=== PATIENT | male | born 1960 | race Caucasian/White ===

== ENCOUNTER 2022-07-01 12:04 | Inpatient (IN) | payer BC, SELFPAY ==
[2022-07-01] VITALS (9 sets, daily range): BP systolic 132–144; BP diastolic 77–92; PULSE 69–102; RESP 16–24; TEMP 36.4; O2SAT 77–96; BMI 46.0
--- NOTE | ~2022-07-01 | XR_ITS ---
EXAMINATION: XR CHEST CLINICAL INFORMATION: Shortness of breath. Hypoxia. COMPARISON: None TECHNIQUE: Upright portable AP view of the chest was obtained. XR/XR chest 1V FINDINGS/IMPRESSION: The study is limited by portable technique and low lung volumes. The pulmonary veins may be mildly prominent in their nondependent portions, raising suspicion for pulmonary venous hypertension. Small bibasilar patchy linear densities are felt more likely to represent atelectasis rather than focal infiltrates. No effusion or pneumothorax is seen. The cardiac silhouette is poorly evaluated. There are degenerative changes of the left shoulder.
--- NOTE | 2022-07-01 12:15 | ECG_ITS ---
Test Reason : sob Blood Pressure : / mmHG Vent. Rate : 080 BPM Atrial Rate : 080 BPM P-R Int : 182 ms QRS Dur : 102 ms QT Int : 386 ms P-R-T Axes : 002 -28 045 degrees QTc Int : 445 ms Normal sinus rhythm Low voltage QRS Possible Inferior infarct , age undetermined Abnormal ECG No previous ECGs available Referred By: Generic ED Physician Electronically Signed By:SERENE COTE MD
--- NOTE | 2022-07-01 12:51 | ED_ITS ---
HPI - SOB/Dyspnea General Chief Complaint: Dyspnea Stated Complaint: sob, high heart rate Time Seen by Provider: 07/01/22 12:41 Source: patient Mode of arrival: ambulatory Limitations: no limitations History of Present Illness HPI Narrative: 61 yo male with history of morbid obesity, COPD, DEVIN on CPAP, aflutter s/p cardioversion & ablation with paroxysmal afib on Eliquis, who presents to the ER for evaluation of shortness of breath for the last several days. He reports over the weekend he started himself on supplemental oxygen because he was very SOB and having a hard time breathing with any exertion. He usually does not wear oxygen at home, only uses 2.5L bled into his CPAP at night. he reports just mov ing here from [facility], and he did when he and his worried by coming to the hospital for evaluation of his breathing. He reports a productive cough of yellow phlegm, no fever or chills. No chest pain. He has been using his nebulizer treatments, more frequently than prescribed in order to help his breathing however this has not helped him. He was shaky from using to mini nebs yesterday. He thought he might have been in rapid AFib at the time. He denies any current palpitations. Patient has a history of requiring multiple hospitalizations for his COPD exacerbations. He was intubated for 5 days in December of 2019 before COVID for pneumonia. MD elicited complaint: shortness of breath Pertinent past history: COPD Onset (ago): day(s) Timing: progressively worsening Severity: moderate Exacerbating factors: exertion and movement Relieving factors: oxygen, rest and bronchodilators Known history of: COPD Associated symptoms: cough and sputum production Treatment prior to arrival: oxygen and bronchodilator Related Data Home oxygen amount: delivered by CPAP (2.5) Home Medications Medication Instructions Recorded Confirmed albuterol sulfate 2.5 mg/3 mL 2.5 mg inhalation Q4H PRN Wheezing 07/01/22 07/01/22 (0.083 %) solution for nebulization albuterol sulfate 90 mcg/actuation 2 puff inhalation QID PRN Wheezing 07/01/22 07/01/22 aerosol inhaler amiodarone 200 mg tablet 200 mg PO DAILY 07/01/22 07/01/22 apixaban 5 mg tablet (Eliquis) 5 mg PO BID 07/01/22 07/01/22 azelastine 137 mcg (0.1 %) nasal 1 spray intranasal BID 07/01/22 07/01/22 spray aerosol budesonide-formoterol HFA 160 2 puff inhalation BID 07/01/22 07/01/22 mcg-4.5 mcg/actuation aerosol inhaler (Symbicort) cholecalciferol (vitamin D3) 25 25 mcg PO DAILY 07/01/22 07/01/22 mcg (1,000 unit) tablet diltiazem HCl 240 mg capsule,24 240 mg PO DAILY 07/01/22 07/01/22 hr,extended release furosemide 40 mg tablet 40 mg PO BID 07/01/22 07/01/22 methimazole 5 mg tablet 5 mg PO DAILY 07/01/22 07/01/22 metoprolol succinate 100 mg 100 mg PO DAILY 07/01/22 07/01/22 capsule sprinkle, ext. release 24 hr multivitamin 1 tab PO DAILY 07/01/22 07/01/22 omeprazole 20 mg tablet,delayed 20 mg PO DAILY 07/01/22 07/01/22 release roflumilast 250 mcg tablet 250 mcg PO DAILY 07/01/22 07/01/22 (Daliresp) tiotropium bromide 2.5 2 puff inhalation DAILY 07/01/22 07/01/22 mcg/actuation mist for inhalation (Spiriva Respimat) vitamin B complex 1 cap PO DAILY 07/01/22 07/01/22 vitamin E 670 mg (1,000 unit) 670 mg PO DAILY 07/01/22 07/01/22 capsule Allergies Allergy/AdvReac Type Severity Reaction Status Date / Time Unable to Assess Allergy Unverified 07/01/22 12:41 Review of Systems Review of Systems: Constitutional: No Fever, No Chills ENT/Mouth: No sore throat, No Rhinorrhea, No Swallowing Difficulty Eyes: No Eye Pain, No Swelling, No Redness Cardiovascular: No Chest Pain, + SOB, No Orthopnea, No Edema Respiratory: + Cough, + Sputum, No Wheezing, + dyspnea Gastrointestinal: No Nausea, No Vomiting, No Diarrhea, No abdominal Pain, No Hematochezia, No Melena Genitourinary: No Dysuria, No Urinary Frequency, No Hematuria Musculoskeletal: No joint pain, No Myalgias Skin: No Skin Lesions, No rash Neuro: No Weakness, No Numbness, No Dizziness, + Headache Psych: No Anxiety/Panic, No Depression Heme/Lymph: No Bruising, No Lymphadenopathy Endocrine: No Polyuria, No Polydipsia PMFSH Social History Social History Advance Directives: Yes Advance Directives Information Provided: Yes Advance Directives on File: No Physical Exam Vital Signs: Vital Signs: Last Vital Signs Temp 97.5 F 07/01/22 12:25 Pulse 69 07/01/22 12:58 Resp 16 07/01/22 12:58 BP 144/77 H 07/01/22 12:25 Pulse Ox 78 L 07/01/22 12:25 O2 Del Method 07/01/22 12:25 Oxygen Flow Rate 5 07/01/22 12:25 BMI result Body Mass Index 46.0 Appearance: Alert. Oriented X3. No acute distress. Eyes: Pupils equal, round and reactive to light. ENT: Pharynx normal. Neck: Normal inspection. Neck supple. CVS: Normal heart rate and rhythm. Pulses normal. Respiratory: No respiratory distress. Breath sounds diminished throughout all lung cormier, poor air entry. no audible wheezes, rales or rhonchi. speaking in complete sentences Abdomen: Obese, Soft and nontender. +BS x4 Skin: Skin warm and dry. Normal skin color. Normal skin turgor. No rashes. Extremities: No lower extremity edema. Neuro: Oriented X 3. No motor deficit. No sensory deficit. Course Course Course Narrative: 61-year-old morbidly obese male with BMI of 46, former smoker, COPD, DEVIN on CPAP, AFib on Eliquis who presents to the ER for evaluation of shortness of br eath, dyspnea on exertion and hypoxia that has worsened over the last several days. On arrival to the emergency department after ambulating to the triage room patient was hypoxic to 70% on 5L pulsed from his home O2 take. he was working to breathe, AAO. patient was fracture treatment room, placed on 4 L nasal cannula and he was slowly able to recover with SpO2 89%. He is speaking complete sentences on evaluation. He has poor aeration with diminished lung sounds throughout. Will plan to check chest x-ray, EKG, basic lab workup, COVID swab and give him a nebulizer treatment now as well as IV steroids. Reevaluation(s) Reevaluation #1: Lab workup showing minimal leukocytosis WBC 11.4. COVID swab is negative. Chest x-ray reviewed, limited evaluation with low lung volumes. There is small bibasilar patchy linear densities most likely atelectasis. Procalcitonin is low. No evidence of acute pneumonia. Will treat for COPD exacerbation with IV Levaquin. After his 10 mg albuterol nebulizer treatment he has improved aeration in his left lung however right lung remains very diminished. He remains on 3 L nasal cannula to maintain saturations 89%. Will plan on admission for further treatment. MDM - SOB/Dyspnea Differential Diagnosis Differential diagnosis: Likely acute exacerbation of chronic obstructive airways disease, congestive heart failure, pneumonia, asthma with exacerbation, pleural effusion, sleep apnea and anemia Medical Records Attestation: I reviewed the patient's medical records. Lab Data Attestation: I reviewed the patient's lab results. Result diagrams: 07/01/22 13:30 07/01/22 13:30 Labs: Lab Results 07/01/22 07/01/22 07/01/22 Range/Units 13:30 13:30 13:30 WBC 11.4 H (4.8-10.8) X10*3/uL RBC 4.76 (4.60-5.80) X10*6/uL Hgb 14.3 (14.0-18.0) g/dl Hct 46.9 (42.0-52.0) % MCV 98.5 H (80.0-98.0) fL MCH 30.0 (27.0-33.0) pg MCHC 30.5 L (31.0-36.0) g/dl RDW 14.4 (11.0-16.0) % Plt Count 202 (160-400) X10*3/uL MPV 11.4 (9.4-12.4) fL Immature Gran % (Auto) 0.4 (0.0-0.4) % Neut % (Auto) 72.6 (45-73) % Lymph % (Auto) 16.3 L (20-40) % [place] % (Auto) 8.7 (2-11) % Eos % (Auto) 1.7 (0-4) % Baso % (Auto) 0.3 (0-2) % Lymph # (Auto) 1.9 (1.2-4.9) X10*3/uL [place] # (Auto) 1.0 (0.1-1.2) X10*3/uL Eos # (Auto) 0.2 (0.0-0.4) X10*3/uL Baso # (Auto) 0.0 (0.0-0.2) X10*3/uL Abs Immat Gran (auto) 0.04 H (0.00-0.03) X10*3/uL Absolute Neuts (auto) 8.3 (2.0-8.3) x10*3/uL Absolute Nucleated RBC 0.000 (0.0-0.012) X10*3/uL Nucleated RBC % (auto) 0.0 (0.0-0.2) /100WBC Sodium 143 (135-145) mmol/L Potassium 4.9 (3.3-5.1) mmol/L Chloride 94 L (96-108) mmol/L Carbon Dioxide 38 H (22-29) mmol/L Anion Gap 16 (12-20) BUN 14 (9-16) mg/dL Creatinine 0.84 (0.5-1.4) mg/dL Estim Creat Clear Calc 138.9 Estimated GFR > 60 Random Glucose 94 (60-115) mg/dL Lactic Acid (0.5-2.0) mmol/L Calcium 8.5 (8.4-10.2) mg/dL Magnesium 2.0 (1.6-2.6) mg/dL Total Bilirubin 0.7 (0.0-1.0) mg/dL Direct Bilirubin 0.3 (0.0-0.5) mg/dL AST 24 (5-37) U/L ALT 25 (0-40) U/L Alkaline Phosphatase 62 (39-117) U/L B-Natriuretic Peptide 48 (<100) pg/mL Total Protein 6.6 (6.5-8.0) g/dL Albumin 4.0 (3.5-5.0) g/dL Procalcitonin ng/mL Urine Color Urine Appearance Urine pH (5.0-8.0) Ur Specific Bradley (1.005-1.025) Urine Protein (NEG-TRACE) MG/DL Urine Glucose (UA) (NEG) MG/DL Urine Ketones (NEG) MG/DL Urine Blood (NEG) Urine Nitrite (NEG) Ur Leukocyte Esterase (NEG) COVID-19 (KIARA) (Negative) COVID-19 Clin Com 07/01/22 07/01/22 07/01/22 Range/Units 13:30 13:31 13:32 WBC (4.8-10.8) X10*3/uL RBC (4.60-5.80) X10*6/uL Hgb (14.0-18.0) g/dl Hct (42.0-52.0) % MCV (80.0-98.0) fL MCH (27.0-33.0) pg MCHC (31.0-36.0) g/dl RDW (11.0-16.0) % Plt Count (160-400) X10*3/uL MPV (9.4-12.4) fL Immature Gran % (Auto) (0.0-0.4) % Neut % (Auto) (45-73) % Lymph % (Auto) (20-40) % Stan[place] % (Auto) (2-11) % Eos % (Auto) (0-4) % Baso % (Auto) (0-2) % Lymph # (Auto) (1.2-4.9) X10*3/uL [place] # (Auto) (0.1-1.2) X10*3/uL Eos # (Auto) (0.0-0.4) X10*3/uL Baso # (Auto) (0.0-0.2) X10*3/uL Abs Immat Gran (auto) (0.00-0.03) X10*3/uL Absolute Neuts (auto) (2.0-8.3) x10*3/uL Absolute Nucleated RBC (0.0-0.012) X10*3/uL Nucleated RBC % (auto) (0.0-0.2) /100WBC Sodium (135-145) mmol/L Potassium (3.3-5.1) mmol/L Chloride (96-108) mmol/L Carbon Dioxide (22-29) mmol/L Anion Gap (12-20) BUN (9-16) mg/dL Creatinine (0.5-1.4) mg/dL Estim Creat Clear Calc Estimated GFR Random Glucose (60-115) mg/dL Lactic Acid 0.9 (0.5-2.0) mmol/L Calcium (8.4-10.2) mg/dL Magnesium (1.6-2.6) mg/dL Total Bilirubin (0.0-1.0) mg/dL Direct Bilirubin (0.0-0.5) mg/dL AST (5-37) U/L ALT (0-40) U/L Alkaline Phosphatase (39-117) U/L B-Natriuretic Peptide (<100) pg/mL Total Protein (6.5-8.0) g/dL Albumin (3.5-5.0) g/dL Procalcitonin 0.02 ng/mL Urine Color Urine Appearance Urine pH (5.0-8.0) Ur Specific Bradley (1.005-1.025) Urine Protein (NEG-TRACE) MG/DL Urine Glucose (UA) (NEG) MG/DL Urine Ketones (NEG) MG/DL Urine Blood (NEG) Urine Nitrite (NEG) Ur Leukocyte Esterase (NEG) COVID-19 (KIARA) Negative (Negative) COVID-19 Clin Com See Note 07/01/22 Range/Units 15:51 WBC (4.8-10.8) X10*3/uL RBC (4.60-5.80) X10*6/uL Hgb (14.0-18.0) g/dl Hct (42.0-52.0) % MCV (80.0-98.0) fL MCH (27.0-33.0) pg MCHC (31.0-36.0) g/dl RDW (11.0-16.0) % Plt Count (160-400) X10*3/uL MPV (9.4-12.4) fL Immature Gran % (Auto) (0.0-0.4) % Neut % (Auto) (45-73) % Lymph % (Auto) (20-40) % [place] % (Auto) (2-11) % Eos % (Auto) (0-4) % Baso % (Auto) (0-2) % Lymph # (Auto) (1.2-4.9) X10*3/uL [place] # (Auto) (0.1-1.2) X10*3/uL Eos # (Auto) (0.0-0.4) X10*3/uL Baso # (Auto) (0.0-0.2) X10*3/uL Abs Immat Gran (auto) (0.00-0.03) X10*3/uL Absolute Neuts (auto) (2.0-8.3) x10*3/uL Absolute Nucleated RBC (0.0-0.012) X10*3/uL Nucleated RBC % (auto) (0.0-0.2) /100WBC Sodium (135-145) mmol/L Potassium (3.3-5.1) mmol/L Chloride (96-108) mmol/L Carbon Dioxide (22-29) mmol/L Anion Gap (12-20) BUN (9-16) mg/dL Creatinine (0.5-1.4) mg/dL Estim Creat Clear Calc Estimated GFR Random Glucose (60-115) mg/dL Lactic Acid (0.5-2.0) mmol/L Calcium (8.4-10.2) mg/dL Magnesium (1.6-2.6) mg/dL Total Bilirubin (0.0-1.0) mg/dL Direct Bilirubin (0.0-0.5) mg/dL AST (5-37) U/L ALT (0-40) U/L Alkaline Phosphatase (39-117) U/L B-Natriuretic Peptide (<100) pg/mL Total Protein (6.5-8.0) g/dL Albumin (3.5-5.0) g/dL Procalcitonin ng/mL Urine Color YELLOW Urine Appearance CLEAR Urine pH 6.0 (5.0-8.0) Ur Specific Bradley 1.020 (1.005-1.025) Urine Protein 2+ H (NEG-TRACE) MG/DL Urine Glucose (UA) NEG (NEG) MG/DL Urine Ketones 5 (NEG) MG/DL Urine Blood NEG (NEG) Urine Nitrite NEG (NEG) Ur Leukocyte Esterase NEG (NEG) COVID-19 (KIARA) (Negative) COVID-19 Clin Com ECG Data Attestation: I personally reviewed and interpreted this ECG as follows: ECG interpretation date: 07/01/22 ECG interpretation time: 14:56 Interpretation: Normal sinus rhythm, low-voltage QRS, ventricular rate 80 beats per minute, normal QTC, normal GA interval. No ST segment elevations or depressions. Critical Care Time Critical Care Time Critical Care Time: Yes Total Critical Care Time: 39 Attestation: I have personally provided critical care time exclusive of time spent on separately billable procedures. Time includes review of lab data, radiology results, discussion with consultants, and monitoring for potential decompensation. Intervention performed as documented. Discharge Plan Discharge Clinical Impression: Acute respiratory failure with hypoxia and hypercapnia Patient Disposition: Admitted As Inpatient
[2022-07-01] MEDS: Albuterol/Iprat 2.5/0.5MG 3 ML AMPUL.NEB INHALE ×4 (12:58→23:35)
--- NOTE | 2022-07-01 13:42 | PHA.MEDREC ---
Pharmacy Consult ? Medication Reconciliation Pharmacy has completed the medication reconciliation. Patient gave me a list verbally. [facility] and spoke to Kristina Price to confirm list.
[2022-07-01 13:52] LABS: MANUAL DIFF FLAG NO
[2022-07-01 13:57] LABS: Basophils Percent Auto 0.3 % (0-2); Eosinophils Absolute Auto 0.2 X10*3/uL (0.0-0.4); Eosinophils Percent Auto 1.7 % (0-4); Hematocrit 46.9 % (42.0-52.0); Hemoglobin 14.3 g/dl (14.0-18.0); Imm Gran Abs Auto 0.04 X10*3/uL (0.00-0.03); Imm Gran Pct Auto 0.4 % (0.0-0.4); Lymphocytes Absolute Auto 1.9 X10*3/uL (1.2-4.9); Lymphocytes Percent Auto 16.3 % (20-40); Mean Corpuscular HGB Conc 30.5 g/dl (31.0-36.0); Mean Corpuscular Volume 98.5 fL (80.0-98.0); Mean Platelet Volume 11.4 fL (9.4-12.4); Monocytes Percent Auto 8.7 % (2-11); Neutrophils Absolute Auto 8.3 x10*3/uL (2.0-8.3); Neutrophils Percent Auto 72.6 % (45-73); Platelet Count 202 X10*3/uL (160-400); Red Blood Count 4.76 X10*6/uL (4.60-5.80); Red Cell Distribution Width 14.4 % (11.0-16.0); White Blood Count 11.4 X10*3/uL (4.8-10.8)
[2022-07-01 14:01] LABS: Lactic Acid 0.9 mmol/L (0.5-2.0)
[2022-07-01 14:07] LABS: COVID-19 Test Negative (Negative); IDNOW Serial# 16C4AD1C
[2022-07-01 14:14] LABS: Alanine Aminotransferase 25 U/L (0-40); Alkaline Phosphatase 62 U/L (39-117); Anion Gap 16 (12-20); Aspartate Amino Transferase 24 U/L (5-37); Bilirubin Direct 0.3 mg/dL (0.0-0.5); Bilirubin Total 0.7 mg/dL (0.0-1.0); Blood Urea Nitrogen 14 mg/dL (9-16); Calcium 8.5 mg/dL (8.4-10.2); Carbon Dioxide 38 mmol/L (22-29); Chloride 94 mmol/L (96-108); Creatinine Clr Calc Pharmacy 138.9; Estimated Glomerular Filt Rate > 60; Glucose Random 94 mg/dL (60-115); Potassium 4.9 mmol/L (3.3-5.1); Sodium 143 mmol/L (135-145); Total Protein 6.6 g/dL (6.5-8.0)
[2022-07-01 14:17] LABS: B Type Natriuretic Peptide 48 pg/mL (<100)
[2022-07-01 14:32] LABS: Procalcitonin 0.02 ng/mL
[2022-07-01] MEDS: Furosemide 40 MG/4 ML VIAL IVPUSH (15:36)
[2022-07-01] MEDS: methylPREDNISolone Sod Succ 125 MG/2 ML VIAL IVPUSH (15:37)
[2022-07-01] MEDS: levoFLOXacin/D5W 500 MG/100 ML PIGGYBACK 100 MG IV (15:37)
[2022-07-01 16:01] LABS: Appearance Urine CLEAR; Color Urine YELLOW; Glucose Urine UA NEG (NEG); Leukocyte Esterase Urine NEG (NEG); Nitrite Urine NEG (NEG); UACC Culture Trigger NO; Urine Blood NEG (NEG); Urine Ketones 5 MG/DL (NEG); Urine Protein 2+ MG/DL (NEG-TRACE)
[2022-07-01 16:11] LABS: Bacteria Urine TRACE /LPF; RBC Urine 0 /HPF (0); Squamous Epithelial Cell Urine TRACE /LPF; WBC Urine 0 /HPF (0-4)
--- NOTE | 2022-07-01 16:54 | P.HPHOSP_ITS ---
History of Present Illness Date of Service: 07/01/22 Chief Complaint: sob 61-year-old male pmx aflutter s/p cardioversion & ablation with paroxysmal afib on Eliquis,copd with chronic respiratory failure on 2.5 L oxygen,morbid obesity, DEVIN on CPAP: patient says that he had recently moved from [place] from last 1- 2 weeks he is having short of breath on and off and from last few days he is getting more short of breath .He reports over the weekend he started himself on supplemental oxygen because he was very SOB and having a hard time breathing with any exertion.He has been using his nebulizer treatments, more frequently than prescribed in order to help his breathing however this has not helped him. He usually does not wear oxygen at home, only uses 2.5L bled into his CPAP at night.He was shaky from using to mini nebs yesterday.He reports a productive cough of yellow phlegm. Patient has a history of requiring multiple hospitalizations for his COPD exacerbations.? He was intubated for 5 days in December of 2019 before COVID for pneumonia. Denies any new complaint of chest pain or abdominal pain or fever or chills or nausea or vomiting Denies any weakness or numbness.? Lab imaging reviewed: mild leukocytosis, BMP seems fine, lactic acid seems fine, cxr:mild atelactasis COVID negative In ED: initially patient was having sats of 78%-patient received nebs, steroids, antibiotics,lasix,oxygen and subsequently patient breathing seems to be improving: ED requested admission because of shortness of breath and COPD exacerbation. social history: Patient lives with his , occasionally drinks beer 1 in 2 weeks, quit smoking 12 years ago has 30 year pack history, no recreation drug use, independent. moderna x4, last booster in march Review of Systems Review of Systems: As above. [facility] Pertinent family history: Patient mother had COPD, father- colon cancer and brother lung cancer respectively. Social History Advance Directives: Yes Advance Directives Information Provided: Yes Advance Directives on File: No Meds Allergies Allergy/AdvReac Type Severity Reaction Status Date / Time Unable to Assess Allergy Unverified 07/01/22 12:41 Active Medications: Current Medications Albuterol/Ipratropium (Albuterol/Iprat 2.5/0.5mg 3 Ml Ampul.Neb) 3 ml INHALE Q4H JIMMY Albuterol/Ipratropium (Albuterol/Iprat 2.5/0.5mg 3 Ml Ampul.Neb) 3 ml INHALE Q3H PRN PRN Reason: sob Amiodarone HCl (Amiodarone Hcl 200 Mg Tablet) 200 mg PO DAILY [facility] Apixaban (Apixaban 5 Mg Tablet) 5 mg PO BID [facility] Azelastine HCl (Azelastine Hcl Nasal 137 Mcg/[place] 30 Ml) 1 spray NOSTRIL-B BID [facility] Diltiazem HCl (Diltiazem Hcl Cd 240 Mg Cap.Er.Deg) 240 mg PO DAILY JIMMY; Protocol Furosemide (Furosemide 40 Mg Tablet) 40 mg PO BID JIMMY; Protocol Ceftriaxone Sodium 1 gm/ (Sodium Chloride) 50 mls @ 100 mls/hr IV DAILY [facility] Methimazole (Methimazole 5 Mg Tablet) 5 mg PO DAILY [facility] Methylprednisolone Sodium Succinate (Methylprednisolone Sod Succ 40 Mg/Ml Vial) 40 mg IVPUSH TID [facility] Metoprolol Succinate (Metoprolol Succinate Er 100 Mg Tab.Er.24h) 100 mg PO DAILY JIMMY; Protocol Multivitamins/Vitamin C (Multivitamin Tablet) 1 tab PO DAILY [facility] Multivitamins/Vitamin C (Multivitamin Tablet) tab PO DAILY [facility] Non-Formulary Medication (Roflumilast [Daliresp]) 250 mcg PO DAILY [facility] Non-Formulary Medication (Tiotropium [place] [Spiriva Respimat]) 2 puff INHALE DAILY [facility] Non-Formulary Medication (Vitamin E) 670 mg PO DAILY [facility] Omeprazole (Omeprazole 20 Mg Capsule.Dr) 20 mg PO DAILY [facility] Pharmacy Consult (Consult Rx Perform Med Rec) 1 each MISCELLANE ONCE PRN PRN Reason: Consult order Sodium Chloride (0.9 % Sodium Chloride Flush 3 Ml Syringe) 3 ml IVFLUSH QSHIFT [facility] Vitamin D (Cholecalciferol (Vitamin D3) 25 Mcg Tablet) 25 mcg PO DAILY [facility] Home Medications Medication Instructions Recorded Confirmed Last Taken Type albuterol sulfate 2.5 mg/3 mL 2.5 mg inhalation Q4H PRN Wheezing 07/01/22 07/01/22 Unknown History (0.083 %) solution for nebulization albuterol sulfate 90 mcg/actuation 2 puff inhalation QID PRN Wheezing 07/01/22 07/01/22 Unknown History aerosol inhaler amiodarone 200 mg tablet 200 mg PO DAILY 07/01/22 07/01/22 Unknown History apixaban 5 mg tablet (Eliquis) 5 mg PO BID 07/01/22 07/01/22 07/01/22 History azelastine 137 mcg (0.1 %) nasal 1 spray intranasal BID 07/01/22 07/01/22 Unknown History spray aerosol budesonide-formoterol HFA 160 2 puff inhalation BID 07/01/22 07/01/22 Unknown History mcg-4.5 mcg/actuation aerosol inhaler (Symbicort) cholecalciferol (vitamin D3) 25 25 mcg PO DAILY 07/01/22 07/01/22 Unknown History mcg (1,000 unit) tablet diltiazem HCl 240 mg capsule,24 240 mg PO DAILY 07/01/22 07/01/22 Unknown History hr,extended release furosemide 40 mg tablet 40 mg PO BID 07/01/22 07/01/22 Unknown History methimazole 5 mg tablet 5 mg PO DAILY 07/01/22 07/01/22 Unknown History metoprolol succinate 100 mg 100 mg PO DAILY 07/01/22 07/01/22 Unknown History capsule sprinkle, ext. release 24 hr multivitamin 1 tab PO DAILY 07/01/22 07/01/22 Unknown History omeprazole 20 mg tablet,delayed 20 mg PO DAILY 07/01/22 07/01/22 Unknown History release roflumilast 250 mcg tablet 250 mcg PO DAILY 07/01/22 07/01/22 Unknown History (April) tiotropium bromide 2.5 2 puff inhalation DAILY 07/01/22 07/01/22 Unknown History mcg/actuation mist for inhalation (Spiriva Respimat) vitamin B complex 1 cap PO DAILY 07/01/22 07/01/22 Unknown History vitamin E 670 mg (1,000 unit) 670 mg PO DAILY 07/01/22 07/01/22 Unknown History capsule Physical Exam 2 Vital Signs and Narrative: Vital Signs: Last Vital Signs Temp 97.5 F 07/01/22 12:25 Pulse 69 07/01/22 12:58 Resp 16 07/01/22 12:58 BP 144/77 H 07/01/22 12:25 Pulse Ox 78 L 07/01/22 12:25 O2 Del Method 07/01/22 12:25 Oxygen Flow Rate 5 07/01/22 12:25 BMI result Body Mass Index 46.0 Appearance: Alert.? Oriented X3.? sob Eyes: Pupils equal, round and reactive to light.? Sclera nonicteric.? ENT: Pharynx normal.? Moist mucous membranes. cvs: rrr, [id number] res: dimished breath sounds , rhonchii b/l. abd: no rebound or guarding ,nt, bs present. ext pulses present , no cyanosis. neuro: axo3 , nonfocal. Results Labs CBC and Chem 7: 07/01/22 13:30 07/01/22 13:30 Labs: Laboratory Results - last 24 hr 07/01/22 07/01/22 07/01/22 13:30 13:30 13:30 MCV 98.5 H MCH 30.0 MCHC 30.5 L RDW 14.4 Plt Count 202 MPV 11.4 Immature Gran % (Auto) 0.4 Neut % (Auto) 72.6 Lymph % (Auto) 16.3 L [place] % (Auto) 8.7 Eos % (Auto) 1.7 Baso % (Auto) 0.3 Lymph # (Auto) 1.9 [place] # (Auto) 1.0 Eos # (Auto) 0.2 Baso # (Auto) 0.0 Abs Immat Gran (auto) 0.04 H Absolute Neuts (auto) 8.3 Absolute Nucleated RBC 0.000 Nucleated RBC % (auto) 0.0 Anion Gap 16 Estim Creat Clear Calc 138.9 Estimated GFR > 60 Random Glucose 94 Lactic Acid Calcium 8.5 Magnesium 2.0 Total Bilirubin 0.7 Direct Bilirubin 0.3 AST 24 ALT 25 Alkaline Phosphatase 62 B-Natriuretic Peptide 48 Total Protein 6.6 Albumin 4.0 Procalcitonin Urine Color Urine Appearance Urine pH Ur Specific [place] Urine Protein Urine Glucose (UA) Urine Ketones Urine Blood Urine Nitrite Ur Leukocyte Esterase Urine RBC Urine WBC Ur Squamous Epith Cells Urine Bacteria COVID-19 (KIARA) COVID-19 Clin Com 07/01/22 07/01/22 07/01/22 13:30 13:31 13:32 MCV MCH MCHC RDW Plt Count MPV Immature Gran % (Auto) Neut % (Auto) Lymph % (Auto) [place] % (Auto) Eos % (Auto) Baso % (Auto) Lymph # (Auto) [place] # (Auto) Eos # (Auto) Baso # (Auto) Abs Immat Gran (auto) Absolute Neuts (auto) Absolute Nucleated RBC Nucleated RBC % (auto) Anion Gap Estim Creat Clear Calc Estimated GFR Random Glucose Lactic Acid 0.9 Calcium Magnesium Total Bilirubin Direct Bilirubin AST ALT Alkaline Phosphatase B-Natriuretic Peptide Total Protein Albumin Procalcitonin 0.02 Urine Color Urine Appearance Urine pH Ur Specific [place] Urine Protein Urine Glucose (UA) Urine Ketones Urine Blood Urine Nitrite Ur Leukocyte Esterase Urine RBC Urine WBC Ur Squamous Epith Cells Urine Bacteria COVID-19 (KIARA) Negative COVID-19 Clin Com See Note 07/01/22 15:51 MCV MCH MCHC RDW Plt Count MPV Immature Gran % (Auto) Neut % (Auto) Lymph % (Auto) [place] % (Auto) Eos % (Auto) Baso % (Auto) Lymph # (Auto) [place] # (Auto) Eos # (Auto) Baso # (Auto) Abs Immat Gran (auto) Absolute Neuts (auto) Absolute Nucleated RBC Nucleated RBC % (auto) Anion Gap Estim Creat Clear Calc Estimated GFR Random Glucose Lactic Acid Calcium Magnesium Total Bilirubin Direct Bilirubin AST ALT Alkaline Phosphatase B-Natriuretic Peptide Total Protein Albumin Procalcitonin Urine Color YELLOW Urine Appearance CLEAR Urine pH 6.0 Ur Specific [place] 1.020 Urine Protein 2+ H Urine Glucose (UA) NEG Urine Ketones 5 Urine Blood NEG Urine Nitrite NEG Ur Leukocyte Esterase NEG Urine RBC 0 Urine WBC 0 Ur Squamous Epith Cells TRACE Urine Bacteria TRACE COVID-19 (KIARA) COVID-19 Clin Com ECG Attestation: I personally reviewed and interpreted this ECG as follows: (nsr @80 bpm) Imaging Radiologist's Impressions: Impressions Chest X-Ray 07/01/22 13:40 FINDINGS/IMPRESSION: The study is limited by portable technique and low lung volumes. The pulmonary veins may be mildly prominent in their nondependent portions, raising suspicion for pulmonary venous hypertension. Small bibasilar patchy linear densities are felt more likely to represent atelectasis rather than focal infiltrates. No effusion or pneumothorax is seen. The cardiac silhouette is poorly evaluated. There are degenerative changes of the left shoulder. Assessment and Plan (1) Acute respiratory failure with hypoxia and hypercapnia: Status: Acute Plan 61-year-old male pmx aflutter s/p cardioversion & ablation with paroxysmal afib on Eliquis,copd with chronic respiratory failure on 2.5 L oxygen,morbid obesity, DEVIN on CPAP: Patient comes with shortness of breath, cough and productive sputum for few days. 1. acute on chronic respiratory failure with hypoxemia secondary to COPD exacerbation continue nebs, steroids, IV antibiotics since has mild leukocytosis and also has productive sputum. follow-up blood cultures sent by ED. continue oxygen as needed Chest x-ray shows some atelectasis- added incentive spirometry, chest physiotherapy patient does not have sepsis. patient may need home oxygen evaluation before discharge to evaluate need to up titrate oxygen if needed. 2. Morbid obesity: Encouraged to lose weight, cutdown calories. 3. History of a flutter/paf: continue amiodarone, metoprolol, Eliquis, diltiazem patient chest x-ray shows question of pulmonary hypertension- will add echo. 4. DEVIN on CPAP ordered, continue CPAP. Continue other home medications, we will reconcile when medical reconciliation completed. DVT prophylaxis: Patient is on Eliquis. Above management discussed with the patient in detail and he understand and in agreement with the above plan, time spent 70 minute, patient is full code, considering acute on chronic hypoxemic respiratory failure secondary to COPD patient may benefit from 2 midnight stays. Quality Stroke Does the patient have a stroke diagnosis?: No VTE Prior VTE?: No VTE Risk Level:: Medical - moderate - high VTE Device Contraindication: N/A - Device Ordered VTE Drug Contraindication: N/A - Med Ordered
[2022-07-01] MEDS: cefTRIAXone sodium 1 GM in 0.9 % Sodium Chloride 50 ML IV (17:10)
[2022-07-01 19:08] LABS: VBG Base Excess 14.2 mmol/L; VBG HCO3 42 mmol/L (22-26); VBG pCO2 62 mmHg; VBG pH 7.43 (7.32-7.43); VBG pO2 45 mmHg
[2022-07-01 19:09] LABS: Venous Blood Gas Refer to POC result
[2022-07-01] MEDS: Furosemide 40 MG TABLET PO (22:23)
[2022-07-01] MEDS: methylPREDNISolone Sod Succ 40 MG/ML VIAL IVPUSH (22:23)
[2022-07-01] MEDS: Apixaban 5 MG TABLET PO (22:23)
--- NOTE | 2022-07-01 22:27 | PC.NURSE ---
pt in no distress, no c/o pain or SOB. O2 sat 86-91% on 2lpm via [place] pt given diet deisy toni per request.
[2022-07-02] VITALS (12 sets, daily range): BP systolic 127–160; BP diastolic 63–84; PULSE 77–94; RESP 15–20; TEMP 36.4–37; O2SAT 86–95
[2022-07-02] MEDS: 0.9 % Sodium Chloride Flush 3 ML SYRINGE IVFLUSH ×3 (00:43→15:27)
[2022-07-02] MEDS: Omeprazole 20 MG CAPSULE.DR PO (06:08)
--- NOTE | 2022-07-02 07:00 | CA_ITS ---
Transthoracic Echocardiogram Patient (Last, First, Middle): Mario Dolan Jr, Gender: Male Date of : 1960 Age: 61 Procedure Date: 07/02/2022 Procedure Type: Transthoracic Echocardiogram Location: S3E Height: 180.34 cm Weight: 149.69 kg BSA: 2.61 m2 Heart Rate: bpm BP: 127 / 84 mmHg Stripper [place]: [id number] Referring MD: Isidra Lawton MD [employer] Operator: Tan Florence MD Symptoms: pulm htn Study Quality: Technically Difficult/contrast ECG Rhythm: Sinus Conclusions: - 1. Technically limited study despite use of contrast agent 2. Normal LV systolic function with LVEF of 65-70% with impaired relaxation filling pattern 3. Limited visualization of cardiac valves with normal cardiac valvular Doppler 4. Normal RV systolic pressure measured on this study could be underestimated 5. No gross pericardial effusion Findings Procedure Information Contrast agent, definity, is being given per protocol without apparent complications. Left Ventricle The left ventricle was not well visualized. Normal left ventricular cavity size. The left ventricular systolic function is normal. The visually estimated ejection fraction is between 65-70%. Spectral Doppler is indicative of an impaired relaxation filling pattern. E/E prime ratio is between 8 and 15 consistent with indeterminate filling pressures. Right Ventricle The right ventricle was not well visualized. There is normal right ventricular systolic function. Atria The left atrium was not well visualized. There is lipomatous hypertrophy of the interatrial septum. There is no evidence of interatrial shunt. The right atrium was not well visualized. Aortic Valve The aortic valve was not well visualized. There is no aortic valve stenosis. There is no aortic valve regurgitation. Mitral Valve The mitral valve was not well visualized. There is no mitral valve regurgitation. There is no mitral valve stenosis. Pulmonic Valve The pulmonic valve was not well visualized. Tricuspid Valve The tricuspid valve was not well visualized. There is trace tricuspid valve regurgitation. The right ventricular systolic pressure is normal. Normal right atrial pressure. There is no evidence of pulmonary hypertension. Great Vessels The aorta was not well visualized. The pulmonary artery was not well visualized. Venous The inferior vena cava is mildly dilated and collapses greater than 50% with inspiration. Pericardium/Pleural The pericardium was not well visualized. Prior Study Comparison No prior study available for comparison. Measurements 2D Linear Measurements LVOT Diam: 2.10 3.0+(-)1.3 cm 2D Systolic Function EF 4C: 71.00 >55% EF 2C: 68.40 >55% EF BiP: 69.10 >55% Mitral Valve MV Pk E: 0.82 MV PK A: 0.74 MV Decel Time: 241.00 E/A: 1.10 E'Lateral: 9.46 E'Medial: 6.85 E/E' Med: 12.00 E/E' Lat: 8.70 PHT: 71.00 MVA PHT: 3.10 Decel Maverick: 3.39 Aortic Valve AoV Pk Uche: 1.80 AoV Mn Uche: 1.33 AoV VTI: 0.37 AoV Pk Grad: 13.00 Aov Mn Grad: 8.00 MARTHA Cont.VTI: 3.19 LVOT LVOT Pk Uche: 1.62 LVOT Mn Uche: 1.14 LVOT VTI: 0.34 LVOT Pk Grad: 10.00 LVOT Mn Grad: 6.00 LVOT Diam: 2.10 LVOT Area: 3.46 Diastolic Function MV Pk E: 0.82 MV Pk A: 0.74 E/A: 1.10 E'Medial: 6.85 E/E' Med: 12.00 E' Laterial: 9.46 E/E' Lat: 8.70 Right Ventricle TAPSE (mm): 26.00 TVS' Uche: 14.00 Tricuspid Valve TR Pk Uche: 2.26 TR Pk Grad: 20.00 RA Press: 3.00 RVSP: 23.00 Great Vessels Aorta Sinus of Valsalva: 3.69 2.0-3.[address] [place]: 3.20 1.7-3.4 cm Updated in Other Vendor System with Status of Final Tan Florence MD electronically signed on 07/03/2022 8:51:36 AM with status of Final
[2022-07-02 07:17] LABS: MANUAL DIFF FLAG NO
[2022-07-02 07:28] LABS: Basophils Percent Auto 0.1 % (0-2); Hematocrit 47.5 % (42.0-52.0); Hemoglobin 14.9 g/dl (14.0-18.0); Imm Gran Abs Auto 0.04 X10*3/uL (0.00-0.03); Imm Gran Pct Auto 0.5 % (0.0-0.4); Lymphocytes Absolute Auto 0.7 X10*3/uL (1.2-4.9); Lymphocytes Percent Auto 8.9 % (20-40); Mean Corpuscular HGB Conc 31.4 g/dl (31.0-36.0); Mean Corpuscular Hemoglobin 30.3 pg (27.0-33.0); Mean Corpuscular Volume 96.7 fL (80.0-98.0); Mean Platelet Volume 11.1 fL (9.4-12.4); Monocytes Absolute Auto 0.1 X10*3/uL (0.1-1.2); Monocytes Percent Auto 1.6 % (2-11); Neutrophils Absolute Auto 6.8 x10*3/uL (2.0-8.3); Neutrophils Percent Auto 88.9 % (45-73); Platelet Count 208 X10*3/uL (160-400); Red Blood Count 4.91 X10*6/uL (4.60-5.80); Red Cell Distribution Width 14.3 % (11.0-16.0); White Blood Count 7.7 X10*3/uL (4.8-10.8)
[2022-07-02 07:48] LABS: Anion Gap 17 (12-20); Blood Urea Nitrogen 13 mg/dL (9-16); Calcium 8.9 mg/dL (8.4-10.2); Carbon Dioxide 37 mmol/L (22-29); Chloride 93 mmol/L (96-108); Creatinine Clr Calc Pharmacy 151.5; Estimated Glomerular Filt Rate > 60; Glucose Random 124 mg/dL (60-115); Potassium 5.7 mmol/L (3.3-5.1); Sodium 141 mmol/L (135-145)
[2022-07-02] MEDS: Albuterol/Iprat 2.5/0.5MG 3 ML AMPUL.NEB INHALE ×5 (08:13→23:02)
[2022-07-02] MEDS: Furosemide 40 MG TABLET PO ×2 (09:21→20:35)
[2022-07-02] MEDS: dilTIAZem HCL CD 240 MG CAP.ER.DEG PO (09:21)
[2022-07-02] MEDS: methIMAzole 5 MG TABLET PO (09:21)
[2022-07-02] MEDS: Amiodarone HCL 200 MG TABLET PO (09:22)
[2022-07-02] MEDS: Vitamin E (Dl,Tocopheryl Acet) 180 MG (400 UNIT) CAPSULE PO (09:22)
[2022-07-02] MEDS: Cholecalciferol (Vitamin D3) 25 MCG TABLET PO (09:22)
[2022-07-02] MEDS: Metoprolol Succinate ER 100 MG TAB.ER.24H PO (09:22)
[2022-07-02] MEDS: Apixaban 5 MG TABLET PO ×2 (09:22→20:35)
[2022-07-02] MEDS: Multivitamin TABLET 1 TAB PO (09:22)
--- NOTE | 2022-07-02 10:15 | MHC.CM.PN ---
CM met with Patient at bedside. Patient moved from [place] 3 days ago and is living temporarily in an apartment here with his . Patient works 60-70 hours/week and home no services is his goal. CM has initiated and will follow for dc planning. PCP is DR. Hidalgo @ [phone] and Patient has received Covid/Moderna vax X4.
--- NOTE | 2022-07-02 14:25 | P.PNIM_ITS ---
Subjective Subjective Date of Service: 07/02/22 Interval History: Seen in follow-up for COPD exacerbation. Interval history; still short of breath. Remain hypoxic without oxygen. Review of Systems No feet Shortness of marlo Physical Exam Vital Signs: Vital Signs: Last Vital Signs Temp 98.5 F 07/02/22 11:01 Pulse 86 07/02/22 11:16 Resp 18 07/02/22 11:16 BP 130/79 07/02/22 11:01 Pulse Ox 91 L 07/02/22 11:01 O2 Del Method 07/02/22 11:01 O2 Flow Rate 3 07/02/22 11:01 Oxygen Flow Rate 3 07/02/22 04:00 BMI result Body Mass Index 46.0 Objective Data Active Medications Albuterol/Ipratropium (Albuterol/Iprat 2.5/0.5mg 3 Ml Ampul.Neb) 3 ml INHALE RQ4H [facility] Last Admin: 07/02/22 11:14 Dose: 3 ml Documented By: OLIVER Albuterol/Ipratropium (Albuterol/Iprat 2.5/0.5mg 3 Ml Ampul.Neb) 3 ml INHALE Q3H PRN PRN Reason: sob Amiodarone HCl (Amiodarone Hcl 200 Mg Tablet) 200 mg PO DAILY [facility] Last Admin: 07/02/22 09:22 Dose: 200 mg Documented By: AURA Apixaban (Apixaban 5 Mg Tablet) 5 mg PO BID [facility] Last Admin: 07/02/22 09:22 Dose: 5 mg Documented By: AURA Azelastine HCl (Azelastine Hcl Nasal 137 Mcg/[place] 30 Ml) 1 spray NOSTRIL-B BID [facility] Last Admin: 07/02/22 10:53 Dose: Not Given Documented By: AURA Non-Admin Reason: Med Not Available Diltiazem HCl (Diltiazem Hcl Cd 240 Mg Cap.Er.Deg) 240 mg PO DAILY [facility]; Protocol Last Admin: 07/02/22 09:21 Dose: 240 mg Documented By: AURA Furosemide (Furosemide 40 Mg Tablet) 40 mg PO BID [facility]; Protocol Last Admin: 07/02/22 09:21 Dose: 40 mg Documented By: AURA Ceftriaxone Sodium 1 gm/ (Sodium Chloride) 50 mls @ 100 mls/hr IV DAILY [facility] Last Admin: 07/02/22 09:33 Dose: Not Given Documented By: AURA Non-Admin Reason: Physician Held Med Methimazole (Methimazole 5 Mg Tablet) 5 mg PO DAILY [facility] Last Admin: 07/02/22 09:21 Dose: 5 mg Documented By: AURA Methylprednisolone Sodium Succinate (Methylprednisolone Sod Succ 40 Mg/Ml Vial) 40 mg IVPUSH TID [facility] Last Admin: 07/02/22 09:34 Dose: Not Given Documented By: AURA Non-Admin Reason: Physician Held Med Metoprolol Succinate (Metoprolol Succinate Er 100 Mg Tab.Er.24h) 100 mg PO DAILY [facility]; Protocol Last Admin: 07/02/22 09:22 Dose: 100 mg Documented By: AURA Multivitamins/Vitamin C (Multivitamin Tablet) 1 tab PO DAILY [facility] Last Admin: 07/02/22 09:22 Dose: 1 tab Documented By: AURA Non-Formulary Medication (Roflumilast [Daliresp]) 250 mcg PO DAILY [facility] Omeprazole (Omeprazole 20 Mg Capsule.) 20 mg PO DAILY@0630 [facility] Last Admin: 07/02/22 06:08 Dose: 20 mg Documented By: MAURICIO Pharmacy Consult (Consult Rx Perform Med Rec) 1 each MISCELLANE ONCE PRN PRN Reason: Consult order Sodium Chloride (0.9 % Sodium Chloride Flush 3 Ml Syringe) 3 ml IVFLUSH QSHIFT [facility] Last Admin: 07/02/22 09:21 Dose: 3 ml Documented By: AURA Tiotropium [place] (Tiotropium [place] 18 Mcg Cap.W.Dev) 1 puff INHALE RDAILY [facility] Last Admin: 07/02/22 08:14 Dose: Not Given Documented By: CHAVEZ Non-Admin Reason: Med Not Available Vitamin D (Cholecalciferol (Vitamin D3) 25 Mcg Tablet) 25 mcg PO DAILY [facility] Last Admin: 07/02/22 09:22 Dose: 25 mcg Documented By: AURA Vitamin E (Vitamin E (Dl,Tocopheryl Acet) 180 Mg (400 Unit) Capsule) 180 mg PO DAILY [facility] Last Admin: 07/02/22 09:22 Dose: 180 mg Documented By: AURA Labs CBC & Chem 7: 07/02/22 06:08 07/02/22 06:08 Labs: Laboratory Results - last 24 hr 07/01/22 07/01/22 07/01/22 13:30 15:51 18:58 MCV MCH MCHC RDW Plt Count MPV Immature Gran % (Auto) Neut % (Auto) Lymph % (Auto) [place] % (Auto) Eos % (Auto) Baso % (Auto) Lymph # (Auto) [place] # (Auto) Eos # (Auto) Baso # (Auto) Abs Immat Gran (auto) Absolute Neuts (auto) Absolute Nucleated RBC Nucleated RBC % (auto) VBG pH 7.43 VBG pCO2 62 VBG pO2 45 VBG HCO3 42 H VBG O2 Saturation 70.0 VBG Base Excess 14.2 Anion Gap Estim Creat Clear Calc Estimated GFR Random Glucose Calcium Procalcitonin 0.02 Urine Color YELLOW Urine Appearance CLEAR Urine pH 6.0 Ur Specific [place] 1.020 Urine Protein 2+ H Urine Glucose (UA) NEG Urine Ketones 5 Urine Blood NEG Urine Nitrite NEG Ur Leukocyte Esterase NEG Urine RBC 0 Urine WBC 0 Ur Squamous Epith Cells TRACE Urine Bacteria TRACE 07/02/22 07/02/22 06:08 06:08 MCV 96.7 MCH 30.3 MCHC 31.4 RDW 14.3 Plt Count 208 MPV 11.1 Immature Gran % (Auto) 0.5 H Neut % (Auto) 88.9 H Lymph % (Auto) 8.9 L [place] % (Auto) 1.6 L Eos % (Auto) 0.0 Baso % (Auto) 0.1 Lymph # (Auto) 0.7 L [place] # (Auto) 0.1 Eos # (Auto) 0.0 Baso # (Auto) 0.0 Abs Immat Gran (auto) 0.04 H Absolute Neuts (auto) 6.8 Absolute Nucleated RBC 0.000 Nucleated RBC % (auto) 0.0 VBG pH VBG pCO2 VBG pO2 VBG HCO3 VBG O2 Saturation VBG Base Excess Anion Gap 17 Estim Creat Clear Calc 151.5 Estimated GFR > 60 Random Glucose 124 H Calcium 8.9 Procalcitonin Urine Color Urine Appearance Urine pH Ur Specific [place] Urine Protein Urine Glucose (UA) Urine Ketones Urine Blood Urine Nitrite Ur Leukocyte Esterase Urine RBC Urine WBC Ur Squamous Epith Cells Urine Bacteria Assessment and Plan (1) COPD exacerbation: Status: Acute (2) Acute respiratory failure with hypoxia and hypercapnia: Status: Acute Plan 61-year-old male pmx aflutter s/p cardioversion & ablation with paroxysmal afib on Eliquis,copd with chronic respiratory failure on 2.5 L oxygen,morbid obesity, DEVIN on CPAP:? Patient comes with shortness of breath, cough and productive sputum for few days. ? 1.?Acute on chronic respiratory failure with hypoxemia secondary to COPD exacerbation--still symptomatic -continue monitoring, IV steroid, bronchodilators by Neb scheduled and PRN -No indiction for Abx, stop Ceftriaxone 2.? Morbid obesity:? Encouraged to lose weight, cutdown calories. 3.? chronic afib, metoprolol, eliquis 4.? DEVIN on CPAP ?ordered, continue CPAP. ? Continue other home medications, we will reconcile when medical reconciliation completed. ? DVT prophylaxis: Patient is on Eliquis. ongoing admission d/t copd ex still present and needing IV steroid, and frequent nebs Quality Stroke Does the patient have a stroke diagnosis?: No VTE Prior VTE?: No VTE Risk Level:: Medical - moderate - high VTE Device Contraindication: N/A - Device Ordered VTE Drug Contraindication: N/A - Med Ordered
[2022-07-02] MEDS: methylPREDNISolone Sod Succ 40 MG/ML VIAL IVPUSH ×2 (15:27→20:35)
[2022-07-03] VITALS (12 sets, daily range): BP systolic 125–167; BP diastolic 62–86; PULSE 71–81; RESP 12–20; TEMP 36.1–36.8; O2SAT 85–94
[2022-07-03] MEDS: 0.9 % Sodium Chloride Flush 3 ML SYRINGE IVFLUSH ×4 (00:59→20:49)
[2022-07-03] MEDS: Omeprazole 20 MG CAPSULE.DR PO (06:21)
--- NOTE | 2022-07-03 07:05 | HO.PM.IMPN ---
Subjective Subjective Date of Service: 07/03/22 Interval History: Seen in follow-up for COPD exacerbation. Interval history; fell pretty good yesterday but had some coughing episode last night Review of Systems No feet Shortness of marlo Physical Exam Vital Signs: Vital Signs: Last Vital Signs Temp 97.3 F 07/03/22 03:13 Pulse 81 07/03/22 03:13 Resp 18 07/03/22 03:13 BP 146/84 H 07/03/22 03:13 Pulse Ox 92 07/03/22 03:13 O2 Del Method 07/03/22 03:13 O2 Flow Rate 3 07/02/22 23:29 Oxygen Flow Rate 3 07/02/22 04:00 BMI result Body Mass Index 46.0 Const: Other: General: AO X 3, no acute distress Resp: diminished, no wheezes CVS: S1,S2,RRR GI: +BS, NT, no distention Skin: No rash Neuro: motor grossly intact Psych: appropriate affect Objective Data Active Medications Albuterol/Ipratropium (Albuterol/Iprat 2.5/0.5mg 3 Ml Ampul.Neb) 3 ml INHALE RQ4H [facility] Last Admin: 07/03/22 03:20 Dose: Not Given Documented By: KEV Non-Admin Reason: Patient Asleep Albuterol/Ipratropium (Albuterol/Iprat 2.5/0.5mg 3 Ml Ampul.Neb) 3 ml INHALE Q3H PRN PRN Reason: sob Amiodarone HCl (Amiodarone Hcl 200 Mg Tablet) 200 mg PO DAILY [facility] Last Admin: 07/02/22 09:22 Dose: 200 mg Documented By: AURA Apixaban (Apixaban 5 Mg Tablet) 5 mg PO BID [facility] Last Admin: 07/02/22 20:35 Dose: 5 mg Documented By: AURA Azelastine HCl (Azelastine Hcl Nasal 137 Mcg/[place] 30 Ml) 1 spray NOSTRIL-B BID [facility] Last Admin: 07/02/22 20:35 Dose: Not Given Documented By: AURA Non-Admin Reason: Med Not Available Diltiazem HCl (Diltiazem Hcl Cd 240 Mg Cap.Er.Deg) 240 mg PO DAILY [facility]; Protocol Last Admin: 07/02/22 09:21 Dose: 240 mg Documented By: AURA Furosemide (Furosemide 40 Mg Tablet) 40 mg PO BID [facility]; Protocol Last Admin: 07/02/22 20:35 Dose: 40 mg Documented By: AURA Ceftriaxone Sodium 1 gm/ (Sodium Chloride) 50 mls @ 100 mls/hr IV DAILY [facility] Last Admin: 07/02/22 09:33 Dose: Not Given Documented By: AURA Non-Admin Reason: Physician Held Med Methimazole (Methimazole 5 Mg Tablet) 5 mg PO DAILY [facility] Last Admin: 07/02/22 09:21 Dose: 5 mg Documented By: AURA Methylprednisolone Sodium Succinate (Methylprednisolone Sod Succ 40 Mg/Ml Vial) 40 mg IVPUSH TID [facility] Last Admin: 07/02/22 20:35 Dose: 40 mg Documented By: AURA Metoprolol Succinate (Metoprolol Succinate Er 100 Mg Tab.Er.24h) 100 mg PO DAILY [facility]; Protocol Last Admin: 07/02/22 09:22 Dose: 100 mg Documented By: AURA Multivitamins/Vitamin C (Multivitamin Tablet) 1 tab PO DAILY [facility] Last Admin: 07/02/22 09:22 Dose: 1 tab Documented By: AURA Non-Formulary Medication (Roflumilast [Daliresp]) 250 mcg PO DAILY [facility] Omeprazole (Omeprazole 20 Mg Capsule.Dr) 20 mg PO DAILY@0630 [facility] Last Admin: 07/03/22 06:21 Dose: 20 mg Documented By: LALO Pharmacy Consult (Consult Rx Perform Med Rec) 1 each MISCELLANE ONCE PRN PRN Reason: Consult order Sodium Chloride (0.9 % Sodium Chloride Flush 3 Ml Syringe) 3 ml IVFLUSH QSHIFT [facility] Last Admin: 07/03/22 00:59 Dose: 3 ml Documented By: LALO Tiotropium [place] (Tiotropium [place] 18 Mcg Cap.W.Dev) 1 puff INHALE RDAILY [facility] Last Admin: 07/02/22 08:14 Dose: Not Given Documented By: CHAVEZ Non-Admin Reason: Med Not Available Vitamin D (Cholecalciferol (Vitamin D3) 25 Mcg Tablet) 25 mcg PO DAILY [facility] Last Admin: 07/02/22 09:22 Dose: 25 mcg Documented By: AURA Vitamin E (Vitamin E (Dl,Tocopheryl Acet) 180 Mg (400 Unit) Capsule) 180 mg PO DAILY [facility] Last Admin: 07/02/22 09:22 Dose: 180 mg Documented By: AURA Labs CBC & Chem 7: 07/02/22 06:08 07/02/22 06:08 Labs: Laboratory Results - last 24 hr 07/02/22 07/02/22 06:08 06:08 MCV 96.7 MCH 30.3 MCHC 31.4 RDW 14.3 Plt Count 208 MPV 11.1 Immature Gran % (Auto) 0.5 H Neut % (Auto) 88.9 H Lymph % (Auto) 8.9 L [place] % (Auto) 1.6 L Eos % (Auto) 0.0 Baso % (Auto) 0.1 Lymph # (Auto) 0.7 L [place] # (Auto) 0.1 Eos # (Auto) 0.0 Baso # (Auto) 0.0 Abs Immat Gran (auto) 0.04 H Absolute Neuts (auto) 6.8 Absolute Nucleated RBC 0.000 Nucleated RBC % (auto) 0.0 Anion Gap 17 Estim Creat Clear Calc 151.5 Estimated GFR > 60 Random Glucose 124 H Calcium 8.9 Microbiology Microbiology Results: Microbiology 07/01/22 13:30 Blood Culture - Preliminary Blood - Venous No growth after 24 hours. 07/01/22 13:33 Blood Culture - Preliminary Blood - Venous No growth after 24 hours. Assessment and Plan (1) COPD exacerbation: Status: Acute (2) Acute respiratory failure with hypoxia and hypercapnia: Status: Acute Plan 61-year-old male pmx aflutter s/p cardioversion & ablation with paroxysmal afib on Eliquis,copd with chronic respiratory failure on 2.5 L oxygen,morbid obesity, DEVIN on CPAP:? Patient comes with shortness of breath, cough and productive sputum for few days. ? 1.?Acute on chronic respiratory failure with hypoxemia secondary to COPD exacerbation--improving -continue monitoring, IV steroid and transition to PO today, bronchodilators by Neb scheduled and PRN -No indiction for Abx, stop Abx 2.? Morbid obesity:? Encouraged to lose weight, cutdown calories. 3.? chronic afib, metoprolol, eliquis 4.? DEVIN on CPAP ?ordered, continue CPAP. ? Continue other home medications, we will reconcile when medical reconciliation completed. ? DVT prophylaxis: Patient is on Eliquis. ongoing admission d/t copd ex still present and needing IV steroid, and frequent nebs but getting better and may go later today and if continue to improve Quality Stroke Does the patient have a stroke diagnosis?: No VTE Prior VTE?: No VTE Risk Level:: Medical - moderate - high VTE Device Contraindication: N/A - Device Ordered VTE Drug Contraindication: N/A - Med Ordered
[2022-07-03] MEDS: Albuterol/Iprat 2.5/0.5MG 3 ML AMPUL.NEB INHALE ×5 (07:41→23:51)
[2022-07-03] MEDS: Azelastine HCl Nasal 137 MCG/Spray 30 ML 1 SPRAY NOSTRIL-B ×2 (08:34→20:50)
[2022-07-03] MEDS: Vitamin E (Dl,Tocopheryl Acet) 180 MG (400 UNIT) CAPSULE PO (08:35)
[2022-07-03] MEDS: dilTIAZem HCL CD 240 MG CAP.ER.DEG PO (08:35)
[2022-07-03] MEDS: Furosemide 40 MG TABLET PO ×2 (08:35→20:49)
[2022-07-03] MEDS: Metoprolol Succinate ER 100 MG TAB.ER.24H PO (08:35)
[2022-07-03] MEDS: Multivitamin TABLET 1 TAB PO (08:35)
[2022-07-03] MEDS: methIMAzole 5 MG TABLET PO (08:35)
[2022-07-03] MEDS: Amiodarone HCL 200 MG TABLET PO (08:35)
[2022-07-03] MEDS: Apixaban 5 MG TABLET PO ×2 (08:35→20:49)
[2022-07-03] MEDS: cefTRIAXone sodium 1 GM in 0.9 % Sodium Chloride 50 ML IV (08:36)
[2022-07-03] MEDS: Cholecalciferol (Vitamin D3) 25 MCG TABLET PO (08:36)
[2022-07-03] MEDS: methylPREDNISolone Sod Succ 40 MG/ML VIAL IVPUSH ×3 (08:36→20:49)
--- NOTE | 2022-07-03 08:43 | MHC.CDI.CONC ---
CDI Concurrent Query Documentation Clarification: PHYSICIAN'S DOCUMENTATION REQUEST Date of Query: 07/03/22 0844 Patient Name: Mario Dolan Jr Admit Date: 07/01/22 Dear Doctor, A review of the medical record indicates additional documentation may be needed. Please review below and update the documentation accordingly. Clinical Indicators: Is there a diagnosis that correlates with these lab findings: Risk Factors/Clinical Indicators/Treatments LABS 8/2 - potassium 5.7 H Based on the above, could you clarify in the Progress Notes the appropriate diagnosis, if significant, that supports the above abnormalities and additional evaluation, monitoring, and/or treatment rendered: Hyperkalemia or other etiology of lab findings Labs indicate a diagnosis of (please specify) Other (please specify) Unable to determine Use of terms such as suspected, likely, concern for, or probable (associated with a specific diagnosis that is being evaluated, monitored, or treated as if it exists) are acceptable and can be coded in the inpatient setting, when documented at the time of discharge. Thank you, Roseanne Dutton [facility], CDIS Extension: [phone] Please use your independent medical judgment in providing your response. THIS QUERY IS PART OF THE PERMANENT MEDICAL RECORD Provider Response: Other Other Diagnosis: Hyperkalemia
[2022-07-04 03:26] VITALS: BP 158/77; PULSE 82; RESP 16; TEMP 36.1; O2SAT 92
[2022-07-04] MEDS: Albuterol/Iprat 2.5/0.5MG 3 ML AMPUL.NEB INHALE ×2 (04:21→07:39)
[2022-07-04 04:23] VITALS: PULSE 75; RESP 16; O2SAT 91
[2022-07-04] MEDS: Omeprazole 20 MG CAPSULE.DR PO (06:05)
[2022-07-04 07:09] VITALS: BP 140/82; PULSE 72; RESP 18; TEMP 36.6; O2SAT 95
[2022-07-04 07:39] VITALS: PULSE 67; RESP 18; O2SAT 92
--- NOTE | 2022-07-04 08:26 | P.DS_ITS ---
DS: Providers Provider Date of Service: 07/04/22 Date of admission: 07/01/22 16:46 Primary care physician: Nonstaff Physician DS: Diagnosis Discharge Diagnosis (1) COPD exacerbation: Status: Acute (2) Acute respiratory failure with hypoxia and hypercapnia: Status: Acute DS: Summary Hospital Course Hospital Course: Chief Complaint: sob ?61-year-old male pmx aflutter s/p cardioversion & ablation with paroxysmal afib on Eliquis,copd with chronic respiratory failure on 2.5 L oxygen,morbid obesity, DEVIN on CPAP: patient says that? he had recently moved from [place] from last 1- 2 weeks he is having short of breath on and off and from last few days he is getting more short of breath .He reports over the weekend he started himself on supplemental oxygen because he was very SOB and having a hard time breathing with any exertion.He has been using his nebulizer treatments, more frequently than prescribed in order to help his breathing however this has not helped him. He usually does not wear oxygen at home, only uses 2.5L bled into his CPAP at night.He was shaky from using to mini nebs yesterday.He reports a productive cough of yellow phlegm. Patient has a history of requiring multiple hospitalizations for his COPD ex acerbations.? He was intubated for 5 days in December of 2019 before COVID for pneumonia. ?Denies any new complaint of chest pain? or abdominal pain or fever or chills or nausea or vomiting Denies any weakness or numbness.? ? Lab imaging reviewed:? mild leukocytosis, BMP seems fine, lactic acid seems fine, cxr:mild atelactasis ?COVID negative In ED:? initially patient was having sats of? 78%-patient received nebs, steroids, antibiotics,lasix,oxygen and subsequently patient breathing seems to be improving:? ED requested admission because of shortness of breath and COPD exacerbation. ?social history:? Patient lives with? his , occasionally drinks beer 1 in 2 weeks, quit smoking 12 years ago has 30 year pack history, no recreation drug use, independent. moderna x4, last booster in march Hospital course: This patient with DEVIN and uses CPAP and oxygen on PRN basis was admitted for acute hypoxic respiratory failure due to COPD exacerbation.. He was treated with IV corticosteroid, bronchodilators by Neb, over has improved with resulation of acute hypoxic, I suspect that he is more often hypoxic at baseline and should probably be using oxygen on more continuous basis and therefore proceeed to do another home O2 eval and he qualifies for Time Spent with Patient Time attestation: Total time spent providing and/or coordinating discharge services: Discharge coordination time: Greater than 30 minutes Quality: Safe Use of Opioids Does Pt have an Active Cancer Diagnosis on the Problem List?: No Quality: Stroke Does the patient have a stroke diagnosis?: No Physical Exam Vital Signs: Vital Signs: Last Vital Signs Temp 97.9 F 07/04/22 07:09 Pulse 67 07/04/22 07:39 Resp 18 07/04/22 07:39 BP 140/82 H 07/04/22 07:09 Pulse Ox 95 07/04/22 07:09 O2 Del Method 07/04/22 07:09 O2 Flow Rate 3 07/04/22 07:09 Oxygen Flow Rate 3 07/03/22 16:00 BMI result Body Mass Index 46.0 DS: Data Data Completed and Pending Labs on day of discharge: Preliminary micro results at discharge 07/01/22 13:30 Blood Culture - Preliminary Blood - Venous No growth after 48 hours. 07/01/22 13:33 Blood Culture - Preliminary Blood - Venous No growth after 48 hours. Discharge Plan Discharge Patient Disposition: Home, Self-Care Discharge Diagnosis: Acute hypoxic respiratory failure due to copd exacerbation Referrals: Physician,Nonstaff [Primary Care Provider] - 1 Week Discharge Medications: Continued multivitamin [Multi-Day] Tablet 1 tab PO DAILY furosemide 40 mg Tablet 40 mg PO BID vitamin E 670 mg (1,000 unit) Capsule 670 mg PO DAILY albuterol sulfate 2.5 mg /3 mL (0.083 %) Solution For Nebulization 2.5 mg INHALATION Q4H PRN (Reason: Wheezing) diltiazem HCl 240 mg Capsule,Extended Release 24 Hr 240 mg PO DAILY methimazole 5 mg Tablet 5 mg PO DAILY azelastine 137 mcg (0.1 %) Aerosol,[place] 1 spray INTRANASAL BID Rx Instructions: administer into each nostril albuterol sulfate 90 mcg/actuation Hfa Aerosol Inhaler 2 puff INHALATION QID PRN (Reason: Wheezing) vitamin B complex [B Complex] Capsule 1 cap PO DAILY cholecalciferol (vitamin D3) 25 mcg (1,000 unit) Tablet 25 mcg PO DAILY budesonide-formoterol [Symbicort] 160-4.5 mcg/actuation Hfa Aerosol Inhaler 2 puff INHALATION BID omeprazole 20 mg Tablet,Delayed Release (Dr/Ec) 20 mg PO DAILY Spiriva Respimat 2.5 mcg/actuation Mist 2 puff INHALATION DAILY Eliquis 5 mg Tablet 5 mg PO BID metoprolol succinate 100 mg Capsule,Sprinkle,Er 24hr 100 mg PO DAILY Daliresp 250 mcg Tablet 250 mcg PO DAILY amiodarone 200 mg Tablet 200 mg PO DAILY Discharge Orders: Discharge Order (Routine); Ordered 07/04/22 Ordered By: Gautam Zuniga Diet: Advance to usual diet Activity on Discharge: As tolerated Stand Alone Forms: Patient Portal Discharge page Care Plan Goals: Full recovery from copd exacerbation Health Concerns: COPD exacerbation Plan of Treatment: take prednisone as directed, use oxygen as directed (2 liters at rest and 3 with exertion) and use inhalers as directed as well, see your doctor in a week Exercise, watch your diet and try to loose some weight Assessment: as above
[2022-07-04 09:09] VITALS: PULSE 108; PULSE 109; PULSE 110; PULSE 90; PULSE 95; O2SAT 85; O2SAT 87; O2SAT 88; O2SAT 92; O2SAT 93
--- NOTE | 2022-07-04 09:19 | MHC.CM.PN ---
PLAN IS HOME TODAY - NO SERVICES. TO TRANSPORT. RN AWARE OF PLAN.
[2022-07-04] MEDS: methIMAzole 5 MG TABLET PO (09:37)
[2022-07-04] MEDS: Amiodarone HCL 200 MG TABLET PO (09:38)
[2022-07-04] MEDS: Furosemide 40 MG TABLET PO (09:38)
[2022-07-04] MEDS: Vitamin E (Dl,Tocopheryl Acet) 180 MG (400 UNIT) CAPSULE PO (09:38)
[2022-07-04] MEDS: Metoprolol Succinate ER 100 MG TAB.ER.24H PO (09:38)
[2022-07-04] MEDS: Cholecalciferol (Vitamin D3) 25 MCG TABLET PO (09:38)
[2022-07-04] MEDS: Apixaban 5 MG TABLET PO (09:39)
[2022-07-04] MEDS: dilTIAZem HCL CD 240 MG CAP.ER.DEG PO (09:39)
[2022-07-04] MEDS: Azelastine HCl Nasal 137 MCG/Spray 30 ML 1 SPRAY NOSTRIL-B (09:39)
[2022-07-04] MEDS: Multivitamin TABLET 1 TAB PO (09:39)
== END 2022-07-04 11:28 | disposition home or self-care (01) | DRG 140 ==
LOC: HO.ED 14:42 → HO.EDOVER 16:54 → HO.S3 20:57
PROVIDERS: Physician Assistant; Admitting Provider Internal Medicine; Emergency Provider Emergency Medicine; Visit Provider Internal Medicine
DX: J44.1 Chronic obstructive pulmonary disease with (acute) exacerbation (principal); J96.21 Acute and chronic respiratory failure with hypoxia; Z68.42 Body mass index [BMI] 45.0-49.9, adult; I48.20 Chronic atrial fibrillation, unspecified; G47.33 Obstructive sleep apnea (adult) (pediatric); E66.01 Morbid (severe) obesity due to excess calories; Z20.822 Contact with and (suspected) exposure to COVID-19; Z87.891 Personal history of nicotine dependence; Z79.01 Long term (current) use of anticoagulants; Z79.899 Other long term (current) drug therapy
CPT/HCPCS: 36415; 71045; 80048; 80076; 81001; 81003; 82803; 83605; 83735; 83880; 84145; 85025; 87040; 87635; 93005; 93306; 94640; 96365; 96375; 99285; J0696; J1940; J1956; J2920; J2930; Q9957

== ENCOUNTER 2023-04-24 08:48 | Outpatient (REF) | payer BC, SELFPAY ==
[2023-04-24 11:12] LABS: MANUAL DIFF FLAG NO
[2023-04-24 11:35] LABS: Basophils Absolute Auto 0.1 X10*3/uL (0.0-0.2); Basophils Percent Auto 0.8 % (0-2); Eosinophils Absolute Auto 0.2 X10*3/uL (0.0-0.4); Eosinophils Percent Auto 2.1 % (0-4); Hemoglobin 17.1 g/dl (14.0-18.0); Imm Gran Abs Auto 0.02 X10*3/uL (0.00-0.03); Imm Gran Pct Auto 0.2 % (0.0-0.4); Lymphocytes Absolute Auto 1.5 X10*3/uL (1.2-4.9); Lymphocytes Percent Auto 16.9 % (20-40); Mean Corpuscular HGB Conc 30.7 g/dl (31.0-36.0); Mean Corpuscular Hemoglobin 29.6 pg (27.0-33.0); Mean Corpuscular Volume 96.5 fL (80.0-98.0); Mean Platelet Volume 11.4 fL (9.4-12.4); Monocytes Absolute Auto 0.7 X10*3/uL (0.1-1.2); Monocytes Percent Auto 8.3 % (2-11); Neutrophils Absolute Auto 6.2 x10*3/uL (2.0-8.3); Neutrophils Percent Auto 71.7 % (45-73); Platelet Count 209 X10*3/uL (160-400); Red Blood Count 5.77 X10*6/uL (4.60-5.80); White Blood Count 8.6 X10*3/uL (4.8-10.8)
[2023-04-24 11:36] LABS: Hematocrit 55.7 % (42.0-52.0)
[2023-04-24 12:16] LABS: Alanine Aminotransferase 24 U/L (0-40); Albumin Level 4.4 g/dL (3.5-5.0); Alkaline Phosphatase 71 U/L (39-117); Anion Gap 14 (12-20); Aspartate Amino Transferase 26 U/L (5-37); Bilirubin Total 0.9 mg/dL (0.0-1.0); Blood Urea Nitrogen 16 mg/dL (9-16); Calcium 9.5 mg/dL (8.4-10.2); Carbon Dioxide 36 mmol/L (22-29); Chloride 98 mmol/L (96-108); Cholesterol 214 mg/dL; Estimated Glomerular Filt Rate > 60; Glucose Fasting 89 mg/dL (60-99); HDL Cholesterol 59 mg/dL; LDL Cholesterol Calculated 134 mg/dl; PSA,Total (Free>4and<10) 0.89 ng/mL (0.00-4.00); Potassium 5.3 mmol/L (3.3-5.1); Sodium 143 mmol/L (135-145); TSH reflex Free T4 1.06 uIU/mL (0.32-4.0); Total Protein 6.9 g/dL (6.5-8.0); Triglycerides 109 mg/dL
[2023-04-26 10:29] LABS: Triiodothyronine T3 Free 3.4 pg/mL (2.3-4.2)
== END 2023-04-24 08:49 | disposition home or self-care (01) ==
LOC: HO.HMGCLDS 08:48
PROVIDERS: PCP Internal Medicine; Visit Provider Internal Medicine
DX: Z00.00 Encounter for general adult medical examination without abnormal findings (principal); E05.90 Thyrotoxicosis, unspecified without thyrotoxic crisis or storm; I48.91 Unspecified atrial fibrillation; J44.9 Chronic obstructive pulmonary disease, unspecified; J96.10 Chronic respiratory failure, unspecified whether with hypoxia or hypercapnia; Z86.711 Personal history of pulmonary embolism; Z86.79 Personal history of other diseases of the circulatory system; Z87.01 Personal history of pneumonia (recurrent); Z12.5 Encounter for screening for malignant neoplasm of prostate
CPT/HCPCS: 36415; 80053; 80061; 84153; 84443; 84481; 85025

== ENCOUNTER → 2023-05-09 06:47 | Outpatient (REF) | payer BC, SELFPAY ==
--- NOTE | 2023-05-09 06:49 | HM_ITS ---
Conclusion: 1. Patient was monitored for total period of 3 days 2. Baseline was normal sinus with average heart of 68 beats per minute 3. Occasional ectopy noted 4. Patient marked 3 events which correlated with sinus rhythm MTDD
== END ==
LOC: HO.CARD 06:47
PROVIDERS: PCP Internal Medicine; Visit Provider Internal Medicine
DX: I48.91 Unspecified atrial fibrillation (principal); E05.90 Thyrotoxicosis, unspecified without thyrotoxic crisis or storm; Z86.79 Personal history of other diseases of the circulatory system
CPT/HCPCS: 93242

== ENCOUNTER 2023-05-20 07:20 | Outpatient (REF) | payer BC, SELFPAY ==
--- NOTE | ~2023-05-20 | CT_ITS ---
EXAMINATION: CT CHEST WITHOUT CONTRAST HIGH-RESOLUTION CLINICAL INFORMATION: Chronic respiratory failure. COMPARISON: Previous chest x-ray July 2022. TECHNIQUE: Axial images through the chest without IV contrast. Sagittal and coronal reconstructions on the technologist workstation were performed. This CT examination was performed using dose optimization techniques as appropriate, variously including the following: *Automated exposure control *Adjustment of mA and/or kV according to patient size (this includes techniques or standardized protocols for targeted exams where dose is matched to indication/reason for exam; i.e. extremities or head) *Use of iterative reconstruction technique PATIENT DOSE: 374 mGy-cm. FINDINGS: There is heterogeneous attenuation in the lungs questionable for hypoventilatory changes related to air trapping. There is a 3 mm calcified peripheral or subpleural left upper lobe nodule axial image 52 series 12. There is scarring or subsegmental atelectasis in the posterior segment of the right upper lobe near the major fissure axial image 53 series 12. There is bullous or cystic change at the right lung base in the lateral segment of the right middle lobe and anterior basal right lower lobe. There is peripheral or subpleural right lower lobe mass-like density adjacent to the diaphragmatic pleural surface. This measures 2.2 x 5.7 cm in AP and transverse dimension and 1 cm in length. This has more old central bronchovascular pattern. Appearance is questionable for a round atelectasis related to pleural disease. There is a 3 mm calcified left lower lobe pulmonary nodule. No endobronchial or endotracheal lesion. There is flattening of the trachea and right and left mainstem bronchi questionable for tracheomalacia. The heart does not appear enlarged. Mild coronary artery calcification. No pericardial effusion. Pulmonary arteries are enlarged, questionable for pulmonary artery hypertension. Main pulmonary artery measures 4 cm. The thoracic aorta is normal in caliber. There are no enlarged hilar or mediastinal lymph nodes. There is right diaphragmatic pleural thickening and calcification. Appearance is questionable for asbestos-related pleural disease. No left pleural thickening. No pleural effusion. Images through the upper abdomen are unremarkable. No chest wall mass or enlarged axillary lymph nodes. Degenerative changes of the spine. CT/CT chest wo con - High Res IMPRESSION: Bullous or cystic changes at the right lung base in the right middle and right lower lobes. Right diaphragmatic pleural thickening and calcification. Adjacent peripheral or subpleural mass-like density in the right lower lobe, question representing round atelectasis related to pleural disease. Enlarged pulmonary arteries suggestive of pulmonary artery hypertension. Decreased AP dimension of the trachea and right and left mainstem bronchi questionable for tracheomalacia. Small calcified and noncalcified pulmonary nodules. According to the UPDATED 2017 Fleischner Society recommendations, the advised followup imaging for less than 7 mm nodule: Low risk, and no chest CT followup and high risk, optional chest CT followup in one year.
== END 2023-05-20 07:21 | disposition home or self-care (01) ==
LOC: HO.CT 07:20
PROVIDERS: PCP Internal Medicine; Visit Provider Internal Medicine
DX: J96.10 Chronic respiratory failure, unspecified whether with hypoxia or hypercapnia (principal); J44.9 Chronic obstructive pulmonary disease, unspecified; Z87.01 Personal history of pneumonia (recurrent)
CPT/HCPCS: 71250

== ENCOUNTER 2023-06-05 07:16 | Outpatient (REF) | payer BC, SELFPAY | END 2023-06-05 07:17 | disposition home or self-care (01) | LOC: HO.RESP 07:16 | PROVIDERS: PCP Internal Medicine; Visit Provider Internal Medicine | DX: J44.9 Chronic obstructive pulmonary disease, unspecified (principal); J96.10 Chronic respiratory failure, unspecified whether with hypoxia or hypercapnia | CPT/HCPCS: 94060; 94727; 94729 ==

== ENCOUNTER 2023-07-08 07:43 | Inpatient (IN) | payer BC, SELFPAY ==
[2023-07-08] VITALS (12 sets, daily range): BP systolic 123–153; BP diastolic 71–84; PULSE 59–94; RESP 14–19; TEMP 36.9–37.2; O2SAT 91–96; BMI 47.0
--- NOTE | ~2023-07-08 | XR_ITS ---
EXAMINATION: XR CHEST CLINICAL INFORMATION: Dyspnea. COMPARISON: 07/01/[address] scan dated 05/20/2023. TECHNIQUE: Frontal view of the chest was obtained. FINDINGS: No significant abnormality is noted involving the heart, lungs, mediastinum, bony thorax or soft tissues. XR/XR chest 1V IMPRESSION: No acute cardiopulmonary process.
--- NOTE | 2023-07-08 07:00 | CA_ITS ---
Transthoracic Echocardiogram Patient (Last, First, Middle): Mario Dolan Jr., Gender: Male Date of : 1960 Age: 62 Procedure Date: 07/08/2023 Procedure Type: Transthoracic Echocardiogram Location: [facility] [place] Height: 180.34 cm Weight: 152.41 kg BSA: 2.63 m2 Heart Rate: bpm BP: 147 / 84 mmHg Wool Hanker: Referring MD: Cam Powell MD Symptoms: chf Study Quality: Technically Difficult due to obesity 336 lb ECG Rhythm: Sinus Conclusions: - Normal left ventricular size and systolic function. There is moderately increased left ventricular wall thickness. The visually estimated ejection fraction is between 65-70%. - Normal right ventricular cavity size and systolic function. - Mildly elevated right atrial pressure. Findings Procedure Information Contrast agent, definity, is being given per protocol without apparent complications. Left Ventricle Normal left ventricular size and systolic function. There is moderately increased left ventricular wall thickness. The visually estimated ejection fraction is between 65-70%. Regional wall motion abnormalities can not be excluded due to suboptimal endocardial definition. Diastolic function is normal for age. Right Ventricle Normal right ventricular cavity size and systolic function. Atria The left atrium is mildly dilated. Aortic Valve The aortic valve was not well visualized. There is no aortic valve stenosis. There is no aortic valve regurgitation. Mitral Valve Likely normal mitral valve structure and function. There is no mitral valve regurgitation. There is no mitral valve stenosis. Pulmonic Valve The pulmonic valve is likely normal. Tricuspid Valve Normal tricuspid valve structure and function. There is no tricuspid valve regurgitation. Tricuspid regurgitation envelope is inadequate for calculation of right ventricular systolic pressure. Mildly elevated right atrial pressure. Great Vessels The aorta was not well visualized. Venous The inferior vena cava is dilated and collapses greater than 50% with inspiration. Pericardium/Pleural There is no evidence of pericardial effusion. Prior Study Comparison No significant change compared to prior study dated: 07/02/2022. Measurements 2D Linear Measurements IVSd: 1.40 0.6-0.9/0.6-1.0 cm LVIDd: 6.10 3.9-5.3/4.2-5.9 cm LVIDd Index: 2.32 2.4-3.2/2.2-3.1 cm/m2 LVIDs: 3.80 2.0-3.6 cm LVPWd: 1.50 0.7-1.1 cm Ao Root: 3.40 2.1-3.5 cm LA Diam: 5.00 2.7-3.8/3.0-4.0 cm LAIDs Index: 1.90 1.5-2.3 cm/m2 LV Mass: 522.10 67-162/88-224 g LV Mass Index: 198.52 43-95/49-115 g/m2 LVOT Diam: 2.10 3.0+(-)1.3 cm Mitral Valve MV Pk E: 0.76 MV PK A: 1.03 MV Decel Time: 112.00 E/A: 0.70 E'Lateral: 10.00 E'Medial: 7.62 E/E' Med: 9.90 E/E' Lat: 7.60 PHT: 33.00 MVA PHT: 6.67 Decel [place]: 6.75 Aortic Valve AoV Pk Uche: 1.62 AoV Mn Uche: 1.09 AoV VTI: 0.29 AoV Pk Grad: 10.00 Aov Mn Grad: 6.00 MARTHA Cont.VTI: 2.57 LVOT LVOT Pk Uche: 0.98 LVOT Mn Uche: 0.69 LVOT VTI: 0.22 LVOT Pk Grad: 4.00 LVOT Mn Grad: 2.00 LVOT Diam: 2.10 LVOT Area: 3.46 Diastolic Function MV Pk E: 0.76 MV Pk A: 1.03 E/A: 0.70 E'Medial: 7.62 E/E' Med: 9.90 E' Laterial: 10.00 E/E' Lat: 7.60 Tricuspid Valve TR Pk Uche: 2.28 TR Pk Grad: 21.00 Great Vessels Aorta Ao Root-2D: 3.40 2.0-3.7 cm Pulmonary Valve PV Pk Uche: 0.96 Peak PV Grad: 4.00 Updated in Other Vendor System with Status of Final Carlos Lee MD electronically signed on 07/08/2023 10:13:54 PM with status of Final
--- NOTE | 2023-07-08 08:00 | ECG_ITS ---
Test Reason : sob Blood Pressure : / mmHG Vent. Rate : 057 BPM Atrial Rate : 057 BPM P-R Int : 202 ms QRS Dur : 102 ms QT Int : 434 ms P-R-T Axes : -23 -31 024 degrees QTc Int : 422 ms Sinus bradycardia with Premature atrial complexes in a pattern of bigeminy Left axis deviation Inferior infarct , age undetermined Abnormal ECG When compared to the previous EKG of No significant changes seen Referred By: Cherie Pearson Electronically Signed By:Carlos Lee
--- NOTE | 2023-07-08 08:09 | ED.SOB ---
HPI - SOB/Dyspnea General Chief Complaint: Dyspnea Stated Complaint: Low O2 Time Seen by Provider: 07/08/23 08:00 Source: patient Mode of arrival: ambulatory Limitations: no limitations History of Present Illness HPI Narrative: 62-year-old male paroxysmal a flutter, cardioversion with ablation with paroxysmal AFib on Eliquis, COPD with chronic respiratory failure using 2.5 L of supplement oxygen p.r.n., DEVIN on CPAP at night patient is started pulmonary rehab found to be hypoxic even with supplemental oxygen patient was sent to the emergency further evaluation. Patient been having mild respiratory distress with exertion, no lower extremity swelling or edema, no recent travel, no PND. No fever, no chills. Related Data Home Medications Medication Instructions Recorded Confirmed albuterol sulfate 2.5 mg/3 mL 2.5 mg inhalation Q4H PRN Wheezing 07/01/22 06/06/23 (0.083 %) solution for nebulization albuterol sulfate 90 mcg/actuation 2 puff inhalation QID PRN Wheezing 07/01/22 06/06/23 aerosol inhaler amiodarone 200 mg tablet 200 mg PO DAILY 07/01/22 06/06/23 apixaban 5 mg tablet (Eliquis) 5 mg PO BID 07/01/22 06/06/23 cholecalciferol (vitamin D3) 25 25 mcg PO DAILY 07/01/22 06/06/23 mcg (1,000 unit) tablet diltiazem HCl 240 mg capsule,24 240 mg PO DAILY 07/01/22 06/06/23 hr,extended release furosemide 40 mg tablet 40 mg PO BID 07/01/22 06/06/23 multivitamin 1 tab PO DAILY 07/01/22 06/06/23 tiotropium bromide 2.5 2 puff inhalation DAILY 07/01/22 06/06/23 mcg/actuation mist for inhalation (Spiriva Respimat) vitamin B complex 1 cap PO DAILY 07/01/22 06/06/23 methimazole 5 mg tablet 2.5 mg PO DAILY 04/24/23 06/06/23 metoprolol succinate 100 mg 100 mg PO DAILY 07/08/23 tablet,extended release 24 hr roflumilast 500 mcg tablet 500 mcg PO DAILY 07/08/23 Previous Rx's Medication Instructions Recorded compr.stocking,knee,long,large #12 ea 04/24/23 Allergies Allergy/AdvReac Type Severity Reaction Status Date / Time No Known Allergies Allergy Verified 06/06/23 12:59 Review of Systems Review of Systems: All other systems are reviewed and are negative Constitutional: Reports as per HPI and Reports no additional constitutional complaints Eyes: Reports as per HPI and Reports no additional eye complaints Reports system reviewed and no additional complaints, except as documented Cardiovascular: Reports as per HPI and Reports no additional cardiovascular complaints Respiratory: Reports as per HPI and Reports no additional respiratory complaints Gastrointestinal: Reports as per HPI and Reports no additional gastrointestinal complaints Genitourinary: Reports no additional female genitourinary complaints Musculoskeletal: Reports no additional musculoskeletal complaints Skin/Breast: Reports system reviewed and no additional complaints, except as docu Psychiatric: Reports no additional psychiatric complaints Endocrine: Reports no additional endocrine complaints Hematologic/Lymphatic: Reports no additional hematologic/lymphatic complaints Allergic/Immunologic: Reports no additional allergic/immunologic complaints Reports system reviewed and no additional complaints, except as documented and Reports Abnormal speech present [facility] Past Medical History Surgical History H/O cardiac radiofrequency ablation Family History Family History Father Bone cancer Mother COPD (chronic obstructive pulmonary disease) Social History Social History Household Members: Spouse Household Members Other:: Housing: House Do you presently have visiting nurse or other home services: No Unable to assess alcohol history related to: Unknown Alcohol intake: current Alcohol intake frequency: a few times a month Patient Tobacco Use Status: Former Tobacco user Years Smoked: 30 years Smoked in Last 30 Days: No e-Cigarette/Vaping Use: Never Used Second Hand Smoke Exposure: No Use of substances other than those prescribed or required for medical reasons: No Advance Directives: Yes Advance Directives on File: Yes Advance Directives Date on File: 07/02/22 service: No Current occupational status: employed Cognitive needs: No Hearing needs: No Vision needs: Yes Physical Exam Vital Signs: Vital Signs: Last Vital Signs Temp 98.9 F 07/08/23 07:50 Pulse 62 07/08/23 08:45 Resp 16 07/08/23 08:45 BP 131/73 07/08/23 08:45 Pulse Ox 96 07/08/23 08:45 O2 Del Method Nasal Cannula 07/08/23 08:45 O2 Flow Rate 5.5 07/08/23 07:56 Oxygen Flow Rate 5.5 07/08/23 07:50 BMI result Body Mass Index 47.0 Vital signs have been reviewed as appeared to be correct. Blood pressure normal. Heart rate normal. Respiration rate normal. Temperature normal. Oxygen saturation normal. Appearance: Alert. Oriented X3. No acute distress. Head: Normal external exam. Normocephalic. Atraumatic. No Guevara signs noted. No raccoon eyes noted Eyes: PERRLA. EOMI. Conjunctiva and sclera normal. Eyelids normal. ENT: TM's Normal. Pharynx normal. Uvula midline. Moist mucous membranes. No trismus noted. No drooling noted. No muffled voice noted. Neck: Normal inspection. Neck supple. FROM. No adenopathy. Thyroid Normal. No meningeal signs. No neck mass noted. CVS: Normal heart rate and rhythm. Heart sound normal. No murmurs noted. Pulses normal throughout. Respiratory: No respiratory distress. Painless inspiration. Breath sounds normal. Diffuse bilateral expiratory wheezing with prolonged expiration. Chest nontender. No accessory muscle usage noted or decreased air movement noted. Abdomen: Soft and nontender. Bowel sounds normal in all 4 quadrants. No distention noted. No organomegaly noted. No visible injury noted. Back: No CVA tenderness. Full range of motion noted. Skin: Skin warm and dry. Normal skin color. Normal skin turgor. No rashes/lesions/lacerations noted. Extremities: No lower extremity edema. Extremities exhibit normal range of motion. Extremities nontender. Neuro: Oriented X 3. Cranial nerve exam: II-XII are grossly intact No motor deficit. No sensory deficit. Reflexes normal. Course Course Course Narrative: 62-year-old male former smoker with known history of COPD use supplemental oxygen p.r.n. and CPAP at nighttime found to be hypoxic during pulmonary rehabilitation sent to the ED for further evaluation, hypoxia was improved with 5.5 L nasal cannula, patient is on Eliquis for AC, no risk for pulmonary embolism no recent travel, D-dimer is unremarkable. Will admit for hypoxia. Medications Administered Generic Name Dose Route Start Last Admin Trade Name Freq PRN Reason Stop Dose Admin Magnesium Sulfate 2 gm in 50 mls @ 25 mls/hr 07/08/23 08:08 07/08/23 08:18 Magnesium Sulfate/H2o IV 07/08/23 10:07 25 mls/hr ONCE ONE Administration Discontinued Medications Generic Name Dose Route Start Last Admin Trade Name Sukumar PRN Reason Stop Dose Admin Albuterol Sulfate 7.5 mg 07/08/23 08:08 07/08/23 08:27 Albuterol Sulfate (0.083%) 2.5 Mg/3 Ml Vial.Neb INHALE 07/08/23 08:09 7.5 mg ONCE ONE Administration Albuterol/Ipratropium 3 ml 07/08/23 08:08 07/08/23 08:27 Albuterol/Iprat 2.5/0.5mg 3 Ml Ampul.Neb INHALE 07/08/23 08:09 3 ml ONCE ONE Administration Methylprednisolone Sodium Succinate 125 mg 07/08/23 08:08 07/08/23 08:18 Methylprednisolone Sod Succ 125 Mg/2 Ml Vial IVPUSH 07/08/23 08:09 125 mg ONCE ONE Administration Medical Decision Making Differential Diagnosis Differential Diagnoses: The differential diagnosis associated with the presentation includes (COPD exacerbation, pneumonia, pneumothorax, pleural effusion, pulmonary embolism, CHF, severe anemia, electrolyte abnormality.) Admission/Observation Consideration of admission/observation: Escalation of care including admission/observation considered Consult Healthcare Provider Management of the patient was discussed with: Hospitalist (Dr. Lawton) Lab Data MDM Lab Attestation statement: I reviewed the patient's lab results. 07/08/23 08:13 07/08/23 08:13 Labs: Lab Results 07/08/23 07/08/23 07/08/23 Range/Units 08:13 08:13 08:13 WBC 8.7 (4.8-10.8) X10*3/uL RBC 5.41 (4.60-5.80) X10*6/uL Hgb 15.7 (14.0-18.0) g/dl Hct 50.1 (42.0-52.0) % MCV 92.6 (80.0-98.0) fL MCH 29.0 (27.0-33.0) pg MCHC 31.3 (31.0-36.0) g/dl RDW 15.8 (11.0-16.0) % Plt Count 180 (160-400) X10*3/uL MPV 11.1 (9.4-12.4) fL Immature Gran % (Auto) 0.5 H (0.0-0.4) % Neut % (Auto) 74.3 H (45-73) % Lymph % (Auto) 14.8 L (20-40) % Wise % (Auto) 7.0 (2-11) % Eos % (Auto) 2.6 (0-4) % Baso % (Auto) 0.8 (0-2) % Lymph # (Auto) 1.3 (1.2-4.9) X10*3/uL Wise # (Auto) 0.6 (0.1-1.2) X10*3/uL Eos # (Auto) 0.2 (0.0-0.4) X10*3/uL Baso # (Auto) 0.1 (0.0-0.2) X10*3/uL Abs Immat Gran (auto) 0.04 H (0.00-0.03) X10*3/uL Absolute Neuts (auto) 6.5 (2.0-8.3) x10*3/uL Absolute Nucleated RBC 0.000 (0.0-0.012) X10*3/uL Nucleated RBC % (auto) 0.0 (0.0-0.2) /100WBC D-Dimer High Sensitivty NG/ML Troponin I High Sens 7.6 (<3.5-35.0) ng/L B-Natriuretic Peptide 39 (<100) pg/mL 07/08/23 Range/Units 08:13 WBC (4.8-10.8) X10*3/uL RBC (4.60-5.80) X10*6/uL Hgb (14.0-18.0) g/dl Hct (42.0-52.0) % MCV (80.0-98.0) fL MCH (27.0-33.0) pg MCHC (31.0-36.0) g/dl RDW (11.0-16.0) % Plt Count (160-400) X10*3/uL MPV (9.4-12.4) fL Immature Gran % (Auto) (0.0-0.4) % Neut % (Auto) (45-73) % Lymph % (Auto) (20-40) % Wise % (Auto) (2-11) % Eos % (Auto) (0-4) % Baso % (Auto) (0-2) % Lymph # (Auto) (1.2-4.9) X10*3/uL Wise # (Auto) (0.1-1.2) X10*3/uL Eos # (Auto) (0.0-0.4) X10*3/uL Baso # (Auto) (0.0-0.2) X10*3/uL Abs Immat Gran (auto) (0.00-0.03) X10*3/uL Absolute Neuts (auto) (2.0-8.3) x10*3/uL Absolute Nucleated RBC (0.0-0.012) X10*3/uL Nucleated RBC % (auto) (0.0-0.2) /100WBC D-Dimer High Sensitivty < 150 NG/ML Troponin I High Sens (<3.5-35.0) ng/L B-Natriuretic Peptide (<100) pg/mL Independent Interpretation I performed an independent interpretation of an: EKG (Sinus bradycardia at 57 beats per minutes with PACs, left axis deviation, normal intervals, no ST-T changes.) and Plain X-Ray (No acute intrathoracic pathology.) Radiology Impression Discussion of test interpretation with radiology: I have reviewed the radiologist's reading. Chronic Conditions Patient?s care impacted by: Other (COPD.) Discharge Plan Discharge Clinical Impression: Acute exacerbation of chronic obstructive airways disease, Hypoxia Patient Disposition: Admitted As Inpatient
--- NOTE | 2023-07-08 08:10 | PC.NURSE ---
pt a&ox3. skin warm pink and dry. respirations even and unlabored. lung sounds diminished at bases. pt denies any chest pain and denies shortness of breath. pt coming from pulmonary appointment where he was walking and he desated to the low 70s 4L nasal cannula. pt brought to ED with 5.5L dalton cannula. sating between 88-96%. normal sinus on tele.
[2023-07-08 08:16] LABS: MANUAL DIFF FLAG NO
[2023-07-08 08:18] LABS: Basophils Absolute Auto 0.1 X10*3/uL (0.0-0.2); Basophils Percent Auto 0.8 % (0-2); Eosinophils Absolute Auto 0.2 X10*3/uL (0.0-0.4); Eosinophils Percent Auto 2.6 % (0-4); Hematocrit 50.1 % (42.0-52.0); Hemoglobin 15.7 g/dl (14.0-18.0); Imm Gran Abs Auto 0.04 X10*3/uL (0.00-0.03); Imm Gran Pct Auto 0.5 % (0.0-0.4); Lymphocytes Absolute Auto 1.3 X10*3/uL (1.2-4.9); Lymphocytes Percent Auto 14.8 % (20-40); Mean Corpuscular HGB Conc 31.3 g/dl (31.0-36.0); Mean Corpuscular Volume 92.6 fL (80.0-98.0); Mean Platelet Volume 11.1 fL (9.4-12.4); Monocytes Absolute Auto 0.6 X10*3/uL (0.1-1.2); Neutrophils Absolute Auto 6.5 x10*3/uL (2.0-8.3); Neutrophils Percent Auto 74.3 % (45-73); Platelet Count 180 X10*3/uL (160-400); Red Blood Count 5.41 X10*6/uL (4.60-5.80); Red Cell Distribution Width 15.8 % (11.0-16.0); White Blood Count 8.7 X10*3/uL (4.8-10.8)
[2023-07-08] MEDS: methylPREDNISolone Sod Succ 125 MG/2 ML VIAL IVPUSH (08:18)
[2023-07-08] MEDS: Magnesium Sulfate/H2O 2 GM/50 ML PIGGYBACK IV (08:18)
[2023-07-08 08:26] LABS: D Dimer High Sensitivity < 150 NG/ML
[2023-07-08] MEDS: Albuterol Sulfate (0.083%) 2.5 MG/3 ML VIAL.NEB 7.5 MG INHALE (08:27)
[2023-07-08] MEDS: Albuterol/Iprat 2.5/0.5MG 3 ML AMPUL.NEB INHALE ×4 (08:27→20:13)
[2023-07-08 08:48] LABS: B Type Natriuretic Peptide 39 pg/mL (<100)
[2023-07-08 08:53] LABS: Troponin-I High Sensitivity 7.6 ng/L (<3.5-35.0)
[2023-07-08 09:32] LABS: Anion Gap 13 (12-20); Blood Urea Nitrogen 16 mg/dL (9-16); Carbon Dioxide 35 mmol/L (22-29); Chloride 97 mmol/L (96-108); Creatinine Clr Calc Pharmacy 140.5; Estimated Glomerular Filt Rate > 60; Glucose Random 102 mg/dL (60-115); Potassium 5.1 mmol/L (3.3-5.1); Sodium 140 mmol/L (135-145)
--- NOTE | 2023-07-08 09:38 | PM.IMHP ---
History of Present Illness Date of Service: 07/08/23 Chief Complaint: sob 62M PMH morbid obesity, chronic hypoxic respiratory failure due to COPD, OHS, DEVIN, chronic diastolic chf, htn, paroxysmal afib s/p ablation, hyperthyroid, history of pe, presented with sob. patient states his sob has been getting progressively worse over last 2 months. initially on exertion, now at rest. has been needing to increase his home o2 supplement. recent PFTs may 2023 showed severe obstruction with FEV1 - 21%, FEV1/FVC 41, and moderate restritive pattern. was at pul rehab and send to ED for tachypnea and severe hypoxia to 70s. in ED cxr unremarkable, requiring 5.5L to maintain o2 around 89%. Review of Systems Review of Systems: Yes all other systems are reviewed and are negative [facility] Family History Father Bone cancer Mother COPD (chronic obstructive pulmonary disease) Surgical History H/O cardiac radiofrequency ablation Social History Household Members: Spouse Household Members Other:: Housing: House Do you presently have visiting nurse or other home services: No Unable to assess alcohol history related to: Unknown Alcohol intake: current Alcohol intake frequency: a few times a month Patient Tobacco Use Status: Former Tobacco user Years Smoked: 30 years Smoked in Last 30 Days: No e-Cigarette/Vaping Use: Never Used Second Hand Smoke Exposure: No Use of substances other than those prescribed or required for medical reasons: No Advance Directives: Yes Advance Directives on File: Yes Advance Directives Date on File: 07/02/22 service: No Current occupational status: employed Cognitive needs: No Hearing needs: No Vision needs: Yes Meds Allergies Allergy/AdvReac Type Severity Reaction Status Date / Time No Known Allergies Allergy Verified 06/06/23 12:59 Active Medications: Current Medications Magnesium Sulfate (Magnesium Sulfate/H2o) 2 gm in 50 mls @ 25 mls/hr IV ONCE ONE Stop: 07/08/23 10:07 Last Infusion: 07/08/23 08:25 Dose: Infused Pharmacy Consult (Consult Rx Perform Med Rec) 1 each MISCELLANE ONCE PRN PRN Reason: Consult order Home Medications Medication Instructions Recorded Confirmed Last Taken Type albuterol sulfate 2.5 mg/3 mL 2.5 mg inhalation Q4H PRN Wheezing 07/01/22 07/08/23 Unknown History (0.083 %) solution for nebulization albuterol sulfate 90 mcg/actuation 2 puff inhalation QID PRN Wheezing 07/01/22 07/08/23 07/07/23 History aerosol inhaler amiodarone 200 mg tablet 200 mg PO BEDTIME 07/01/22 07/08/23 07/07/23 History apixaban 5 mg tablet (Eliquis) 5 mg PO BID 07/01/22 07/08/23 07/08/23 09:00 History cholecalciferol (vitamin D3) 25 25 mcg PO BEDTIME 07/01/22 07/08/23 07/07/23 History mcg (1,000 unit) tablet diltiazem HCl 240 mg capsule,24 240 mg PO BEDTIME 07/01/22 07/08/23 07/07/23 History hr,extended release furosemide 40 mg tablet 40 mg PO BID 07/01/22 07/08/23 07/08/23 09:00 History multivitamin 1 tab PO BEDTIME 07/01/22 07/08/23 07/07/23 History tiotropium bromide 2.5 1 puff inhalation BID 07/01/22 07/08/23 07/07/23 History mcg/actuation mist for inhalation (Spiriva Respimat) methimazole 5 mg tablet 2.5 mg PO BEDTIME 04/24/23 07/08/23 07/07/23 History acetaminophen 500 mg tablet 1,000 mg PO Q6H PRN Pain 07/08/23 07/08/23 07/08/23 History azelastine 137 mcg (0.1 %) nasal 2 spray intranasal DAILY PRN 07/08/23 07/08/23 Unknown History spray aerosol Allergy Symptoms budesonide-formoterol HFA 160 2 puff inhalation BID 07/08/23 07/08/23 07/07/23 History mcg-4.5 mcg/actuation aerosol inhaler (Symbicort) metoprolol succinate 100 mg 100 mg PO BEDTIME 07/08/23 07/08/23 07/07/23 History tablet,extended release 24 hr omega 9-wbq-vdp-fish oil 300 1 cap PO BEDTIME 07/08/23 07/08/23 07/07/23 History mg-1,000 mg capsule (Fish Oil) omeprazole magnesium 20 mg 20 mg PO DAILY@0630 07/08/23 07/08/23 07/08/23 History capsule,delayed release roflumilast 500 mcg tablet 500 mcg PO BEDTIME 07/08/23 07/08/23 07/07/23 History thiamine HCl (vitamin B1) 500 mg 500 mg PO BEDTIME 07/08/23 07/08/23 07/07/23 History tablet vitamin E 268 mg (400 unit) capsule 268 mg PO BEDTIME 07/08/23 07/08/23 07/07/23 History Physical Exam Vital Signs and Narrative: Vital Signs: Last Vital Signs Temp 98.9 F 07/08/23 07:50 Pulse 62 07/08/23 08:45 Resp 16 07/08/23 08:45 BP 131/73 07/08/23 08:45 Pulse Ox 96 07/08/23 08:45 O2 Del Method Nasal Cannula 07/08/23 08:45 O2 Flow Rate 5.5 07/08/23 07:56 Oxygen Flow Rate 5.5 07/08/23 07:50 BMI result Body Mass Index 47.0 General: AO X 3, no acute distress Resp: wheeze bilateral, no accessory muscles used CVS: S1,S2,RRR GI: soft, non tender, non distended Neuro: motor grossly intact, alert Psych: appropriate affect, appropriate insight Results Labs 07/08/23 08:13 07/08/23 08:13 Labs: Laboratory Results - last 24 hr 07/08/23 07/08/23 07/08/23 08:13 08:13 08:13 MCV 92.6 MCH 29.0 MCHC 31.3 RDW 15.8 Plt Count 180 MPV 11.1 Immature Gran % (Auto) 0.5 H Neut % (Auto) 74.3 H Lymph % (Auto) 14.8 L [place] % (Auto) 7.0 Eos % (Auto) 2.6 Baso % (Auto) 0.8 Lymph # (Auto) 1.3 [place] # (Auto) 0.6 Eos # (Auto) 0.2 Baso # (Auto) 0.1 Abs Immat Gran (auto) 0.04 H Absolute Neuts (auto) 6.5 Absolute Nucleated RBC 0.000 Nucleated RBC % (auto) 0.0 D-Dimer High Sensitivty Anion Gap 13 Estim Creat Clear Calc 140.5 Estimated GFR > 60 Random Glucose 102 Calcium 9.0 B-Natriuretic Peptide 39 07/08/23 08:13 MCV MCH MCHC RDW Plt Count MPV Immature Gran % (Auto) Neut % (Auto) Lymph % (Auto) [place] % (Auto) Eos % (Auto) Baso % (Auto) Lymph # (Auto) [place] # (Auto) Eos # (Auto) Baso # (Auto) Abs Immat Gran (auto) Absolute Neuts (auto) Absolute Nucleated RBC Nucleated RBC % (auto) D-Dimer High Sensitivty < 150 Anion Gap Estim Creat Clear Calc Estimated GFR Random Glucose Calcium B-Natriuretic Peptide Imaging Radiologist's Impressions: Impressions Chest X-Ray 07/08/23 08:26 IMPRESSION: No acute cardiopulmonary process. Assessment and Plan (1) Acute exacerbation of chronic obstructive airways disease: Status: Acute Plan 62M PMH morbid obesity, chronic hypoxic respiratory failure due to COPD, OHS, DEVIN, chronic diastolic chf, htn, paroxysmal afib s/p ablation, hyperthyroid, history of pe, presented with sob Acute on chronic hypoxic respiratory failure due to COPD with acute decompensation/ohs/DEVIN/restrictive lung disease. IV steroids, bronchodilators, pulmonary eval Paroxysmal atrial fibrillation Diltiazem, Eliquis, metoprolol, amiodarone Chronic diastolic CHF Lasix p.o. Hypertension Diltiazem, metoprolol Morbid obesity Weight loss recommended Hyperthyroid Methimazole History of pulmonary embolism On Eliquis Full code Patient with significant hypoxia requiring high levels of O2 supplementation, at risk for further decompensation due to morbid obesity, therefore, expected require at least 2 midnights inpatient Time Spent With Patient Time: Total time managing care of this patient today ____ minutes. Quality Stroke Does the patient have a stroke diagnosis?: No VTE Prior VTE?: Yes VTE Risk Level:: Medical - moderate - high VTE Device Contraindication: Treatment Not Indicated VTE Drug Contraindication: N/A - Med Ordered
--- NOTE | 2023-07-08 09:42 | PHA.MEDREC ---
Addendum entered by Talat Melgar 07/08/23 09:56: Patient attests to being on Eliquis 5mg BID as well, despite no available claim history. Original Note: Pharmacy Consult ? Medication Reconciliation Pharmacy has completed the medication reconciliation. Spoke to patient to confirm meds. Per patient, patient takes symbicort on a daily basis, however no claim history shows this. Along with this, patient states they take spiriva 1 puff twice a day, and azelastine 2 spray daily PRN.
--- NOTE | 2023-07-08 11:45 | P.CONPL_ITS ---
History of Present Illness History of Present Illness Consult date: 07/08/23 Requesting physician: Cam Powell Chief complaint: COPD Narrative: 62-year-old gentleman , former approximately 30 pack-year smoker, quit 2007, with underlying morbid obesity, chronic hypoxic respiratory failure, COPD, obesity hyperventilation, obstructive sleep apnea, chronic diastolic heart failure paroxysmal AFib status post ablation, remote history of pulmonary emboli admitted on 07/08/2023 with 2-3 months history of slowly worsening dyspnea. On ER evaluation patient with significant hypoxemia requiring 5-6 L of supplemental oxygen to maintain O2 saturation above 88%. Patient with complaints of slowly worsening orthopnea and lower extremity edema. Review of Systems Constitutional: Constitutional: Denies daytime sleepiness, Denies excessive sweating, Denies fatigue, Denies fever(s), Denies lethargy, Denies malaise, Denies night sweats, Denies snoring and Denies weight loss Eyes: Eyes: Denies blurry vision and Denies itchy eyes ENT: Denies nasal congestion, Denies post nasal drip, Denies sinus pain, Denies sinus pressure and Denies other ( Thrush) Cardiovascular: Cardiovascular: Denies chest pain, Reports pedal edema, Denies dyspnea, Reports dyspnea on exertion, Reports orthopnea and Reports paroxysmal nocturnal dyspnea Respiratory: Respiratory: Denies cough, Denies hemoptysis, Denies excessive phlegm production, Denies dyspnea, Reports dyspnea on exertion, Denies snoring and Denies wheezing Gastrointestinal: Gastrointestinal: Denies abdominal pain and Denies heartburn Musculoskeletal: Musculoskeletal: Denies myalgias, Denies arthralgias and Denies joint swelling Integumentary/Breasts: Skin/Breast: Denies rash Neurologic: Denies memory loss and Denies seizure-like activity Psychiatric: Psychiatric: Denies abnormal sleep pattern, Denies anxiety and Denies memory loss Endocrine: Endocrine: Denies excessive sweating, Denies fatigue and Denies heat intolerance Hematologic/Lymphatic: Hematologic/Lymphatic: Denies easy bruising Allergic/Immunologic: Allergic/Immunologic: Denies itchy eyes, Denies seasonal rhinorrhea and Denies wheezing PMFSH Family History Family History Father Bone cancer Mother COPD (chronic obstructive pulmonary disease) Surgical History Surgical History H/O cardiac radiofrequency ablation Social History Social History Household Members: Spouse Household Members Other:: Housing: House Do you presently have visiting nurse or other home services: No Unable to assess alcohol history related to: Unknown Alcohol intake: current Alcohol intake frequency: a few times a month Patient Tobacco Use Status: Former Tobacco user Years Smoked: 30 years Smoked in Last 30 Days: No e-Cigarette/Vaping Use: Never Used Second Hand Smoke Exposure: No Use of substances other than those prescribed or required for medical reasons: No Advance Directives: Yes Advance Directives on File: Yes Advance Directives Date on File: 07/02/22 Nutrition Risks: No Nutritional Risk service: No Current occupational status: employed Cognitive needs: No Hearing needs: No Vision needs: Yes Meds Allergies Allergy/AdvReac Type Severity Reaction Status Date / Time No Known Allergies Allergy Verified 06/06/23 12:59 Active Medications: Current Medications Albuterol/Ipratropium (Albuterol/Iprat 2.5/0.5mg 3 Ml Ampul.Neb) 3 ml INHALE RQ4H WHILE AWAKE [facility] Last Admin: 07/08/23 11:13 Dose: 3 ml Amiodarone HCl (Amiodarone Hcl 200 Mg Tablet) 200 mg PO BEDTIME [facility] Apixaban (Apixaban 5 Mg Tablet) 5 mg PO BID [facility] Diltiazem HCl (Diltiazem Hcl Cd 240 Mg Cap.Er.Deg) 240 mg PO BEDTIME [facility]; Protocol Fluticasone/Vilanterol (Fluticasone/Vilanterol 200/25 Blst.W.Dev) 1 puff INHALE RDAILY [facility] Furosemide (Furosemide 40 Mg/4 Ml Vial) 40 mg IVPUSH BID@0900,1800 [facility]; Protocol Methimazole (Methimazole 5 Mg Tablet) 2.5 mg PO BEDTIME [facility] Methylprednisolone Sodium Succinate (Methylprednisolone Sod Succ 40 Mg/Ml Vial) 40 mg IVPUSH Q12H [facility] Metoprolol Succinate (Metoprolol Succinate Er 100 Mg Tab.Er.24h) 100 mg PO BEDTIME [facility]; Protocol Multivitamins/Vitamin C (Multivitamin Tablet) 1 tab PO BEDTIME [facility] Omeprazole (Omeprazole 20 Mg Capsule.) 20 mg PO DAILY@0630 [facility] Pharmacy Consult (Consult Rx Perform Med Rec) 1 each MISCELLANE ONCE PRN PRN Reason: Consult order Roflumilast (Roflumilast 500 Mcg Tablet) 500 mcg PO BEDTIME [facility] Sodium Chloride (0.9 % Sodium Chloride Flush 3 Ml Syringe) 3 ml IVFLUSH QSHIFT [facility] Thiamine HCl (Thiamine Hcl 100 Mg Tablet) 500 mg PO BEDTIME [facility] Vitamin D (Cholecalciferol (Vitamin D3) 25 Mcg Tablet) 25 mcg PO BEDTIME [facility] Home Medications Medication Instructions Recorded Confirmed Last Taken Type albuterol sulfate 2.5 mg/3 mL 2.5 mg inhalation Q4H PRN Wheezing 07/01/22 07/08/23 Unknown History (0.083 %) solution for nebulization albuterol sulfate 90 mcg/actuation 2 puff inhalation QID PRN Wheezing 07/01/22 07/08/23 07/07/23 History aerosol inhaler amiodarone 200 mg tablet 200 mg PO BEDTIME 07/01/22 07/08/23 07/07/23 History apixaban 5 mg tablet (Eliquis) 5 mg PO BID 07/01/22 07/08/23 07/08/23 09:00 History cholecalciferol (vitamin D3) 25 25 mcg PO BEDTIME 07/01/22 07/08/23 07/07/23 History mcg (1,000 unit) tablet diltiazem HCl 240 mg capsule,24 240 mg PO BEDTIME 07/01/22 07/08/23 07/07/23 History hr,extended release furosemide 40 mg tablet 40 mg PO BID 07/01/22 07/08/23 07/08/23 09:00 History multivitamin 1 tab PO BEDTIME 07/01/22 07/08/23 07/07/23 History tiotropium bromide 2.5 1 puff inhalation BID 07/01/22 07/08/23 07/07/23 History mcg/actuation mist for inhalation (Spiriva Respimat) methimazole 5 mg tablet 2.5 mg PO BEDTIME 04/24/23 07/08/23 07/07/23 History acetaminophen 500 mg tablet 1,000 mg PO Q6H PRN Pain 07/08/23 07/08/23 07/08/23 History azelastine 137 mcg (0.1 %) nasal 2 spray intranasal DAILY PRN 07/08/23 07/08/23 Unknown History spray aerosol Allergy Symptoms budesonide-formoterol HFA 160 2 puff inhalation BID 07/08/23 07/08/23 07/07/23 History mcg-4.5 mcg/actuation aerosol inhaler (Symbicort) metoprolol succinate 100 mg 100 mg PO BEDTIME 07/08/23 07/08/23 07/07/23 History tablet,extended release 24 hr omega 0-bzi-[id number]-fish oil 300 1 cap PO BEDTIME 07/08/23 07/08/23 07/07/23 History mg-1,000 mg capsule (Fish Oil) omeprazole magnesium 20 mg 20 mg PO DAILY@0630 07/08/23 07/08/23 07/08/23 History capsule,delayed release roflumilast 500 mcg tablet 500 mcg PO BEDTIME 07/08/23 07/08/23 07/07/23 History thiamine HCl (vitamin B1) 500 mg 500 mg PO BEDTIME 07/08/23 07/08/23 07/07/23 History tablet vitamin E 268 mg (400 unit) capsule 268 mg PO BEDTIME 07/08/23 07/08/23 07/07/23 History Physical Exam Vital Signs: Vital Signs: Last Vital Signs Temp 98.9 F 07/08/23 07:50 Pulse 79 07/08/23 11:16 Resp 14 07/08/23 11:16 BP 133/76 07/08/23 10:19 Pulse Ox 92 07/08/23 10:19 O2 Del Method Nasal Cannula 07/08/23 10:19 O2 Flow Rate 5.5 07/08/23 10:19 Oxygen Flow Rate 5.5 07/08/23 07:50 BMI result Body Mass Index 47.0 Const: General: no acute distress and alert Nutritional Appearance: obese Orientation/consciousness: Other orientation findings ( oriented) HEENT: Head: Yes atraumatic Eyes: General: appearance normal, both eyes and all related structures Sclerae: sclerae normal EOM: EOMs intact bilaterally Neck: Neck: Yes supple Lymphatic: no lymphadenopathy noted Resp: Effort & Inspection: normal respiratory effort and no use of accessory muscles Auscultation: clear to auscultation bilaterally Cardio: Rate: regular rate Rhythm: regular rhythm Heart sounds: no gallops, no murmurs and no rubs Skin: General skin exam: other ( warm) Extrem: General: No clubbing, No cyanosis and Yes edema (1+ bilateral) Results Laboratory Findings 07/08/23 08:13 07/08/23 08:13 Abnormal lab findings: Abnormal Labs 07/08/23 07/08/23 08:13 08:13 Immature Gran % (Auto) 0.5 H Neut % (Auto) 74.3 H Lymph % (Auto) 14.8 L Abs Immat Gran (auto) 0.04 H Carbon Dioxide 35 H Assessment and Plan (1) Acute and chronic respiratory failure with hypoxia: Status: Acute (2) Acute on chronic diastolic (congestive) heart failure: Status: Acute (3) COPD (chronic obstructive pulmonary disease): Status: Acute Plan Impression: 62-year-old gentleman with underlying chronic hypoxic respiratory failure, COPD, diastolic heart failure, AFib, morbid obesity admitted with subacute dyspnea over several months, now with worsening hypoxia , lower extremity edema, and orthopnea. Recommendations: Underlying COPD with no clinical signs of acute exacerbation. Patient appears to have exacerbation of underlying diastolic congestive heart failure. Would suggest rechecking 2D echocardiogram and proceeding with further diuresis with addition of acetazolamide. Time Spent With Patient Time: Total time managing care of this patient today ____ minutes. Procedures Date of Service Date of Service: 07/08/23
--- NOTE | 2023-07-08 13:40 | PC.NURSE ---
respirations even and unlabored. pt o2 sats between 90-92 on 5.5L [place] cannula. pt set up for lunch. vss.
--- NOTE | 2023-07-08 16:34 | PC.NURSE ---
report given to [facility] nurse.
[2023-07-08] MEDS: 0.9 % Sodium Chloride Flush 3 ML SYRINGE IVFLUSH ×2 (17:02→18:22)
[2023-07-08] MEDS: Furosemide 40 MG/4 ML VIAL IVPUSH (18:22)
[2023-07-08] MEDS: Metoprolol Succinate ER 100 MG TAB.ER.24H PO (20:50)
[2023-07-08] MEDS: Thiamine HCL 100 MG TABLET 500 MG PO (20:51)
[2023-07-08] MEDS: Apixaban 5 MG TABLET PO (20:51)
[2023-07-08] MEDS: Multivitamin TABLET 1 TAB PO (20:51)
[2023-07-08] MEDS: Amiodarone HCL 200 MG TABLET PO (20:51)
[2023-07-08] MEDS: dilTIAZem HCL CD 240 MG CAP.ER.DEG PO (20:51)
[2023-07-08] MEDS: Cholecalciferol (Vitamin D3) 25 MCG TABLET PO (20:52)
[2023-07-08] MEDS: Roflumilast 500 MCG TABLET PO (20:52)
[2023-07-08] MEDS: methIMAzole 5 MG TABLET 2.5 MG PO (20:53)
[2023-07-08] MEDS: methylPREDNISolone Sod Succ 40 MG/ML VIAL IVPUSH (20:55)
[2023-07-09] VITALS (10 sets, daily range): BP systolic 115–136; BP diastolic 67–102; PULSE 61–84; RESP 16–20; TEMP 36.5–37.2; O2SAT 90–95
[2023-07-09] MEDS: Omeprazole 20 MG CAPSULE.DR PO (05:44)
[2023-07-09 06:17] LABS: Hematocrit 52.3 % (42.0-52.0); Hemoglobin 16.1 g/dl (14.0-18.0); Mean Corpuscular HGB Conc 30.8 g/dl (31.0-36.0); Mean Corpuscular Hemoglobin 28.8 pg (27.0-33.0); Mean Corpuscular Volume 93.6 fL (80.0-98.0); Mean Platelet Volume 11.2 fL (9.4-12.4); Platelet Count 193 X10*3/uL (160-400); Red Blood Count 5.59 X10*6/uL (4.60-5.80); Red Cell Distribution Width 15.7 % (11.0-16.0); White Blood Count 12.5 X10*3/uL (4.8-10.8)
[2023-07-09 06:33] LABS: Anion Gap 12 (12-20); Blood Urea Nitrogen 17 mg/dL (9-16); Calcium 9.7 mg/dL (8.4-10.2); Carbon Dioxide 39 mmol/L (22-29); Chloride 96 mmol/L (96-108); Creatinine Clr Calc Pharmacy 135.6; Estimated Glomerular Filt Rate > 60; Glucose Fasting 127 mg/dL (60-99); Potassium 5.3 mmol/L (3.3-5.1); Sodium 142 mmol/L (135-145)
[2023-07-09] MEDS: Sodium Polystyrene Sulfon/Sorb 15 GM/60 ML ORAL.SUSP 30 GM PO (08:26)
[2023-07-09] MEDS: 0.9 % Sodium Chloride Flush 3 ML SYRINGE IVFLUSH ×3 (08:28→20:22)
[2023-07-09] MEDS: methylPREDNISolone Sod Succ 40 MG/ML VIAL IVPUSH ×2 (08:28→20:22)
[2023-07-09] MEDS: Furosemide 40 MG/4 ML VIAL IVPUSH ×2 (08:28→18:00)
[2023-07-09] MEDS: Apixaban 5 MG TABLET PO ×2 (08:28→20:21)
[2023-07-09] MEDS: Albuterol/Iprat 2.5/0.5MG 3 ML AMPUL.NEB INHALE ×4 (08:44→18:54)
--- NOTE | 2023-07-09 08:47 | MHC.CM.PN ---
CM ATTEMPTED TO MEET W/PT X2, PROVIDER AND THEN RESPIRATORY MTG W/PT, CM TO REVISIT.
--- NOTE | 2023-07-09 12:04 | P.PNIM_ITS ---
Subjective Subjective Date of Service: 07/09/23 Interval History: Seen and evaluated Feels better overall but still dyspniec with minimal efforts weaning O2 down as tolerated high potassium Review of Systems Review of Systems: Yes all other systems are reviewed and are negative Physical Exam Vital Signs: Vital Signs: Last Vital Signs Temp 99.0 F 07/09/23 11:03 Pulse 61 07/09/23 11:03 Resp 20 07/09/23 11:03 BP 115/71 07/09/23 11:03 Pulse Ox 93 07/09/23 11:03 O2 Del Method Nasal Cannula 07/09/23 11:03 O2 Flow Rate 3 07/09/23 11:03 Oxygen Flow Rate 5.5 07/08/23 07:50 BMI result Body Mass Index 47.0 Const: Other: Constitutional : Awake, interactive, morbidly obese, in mild distress Neck : Normal inspection, Supple Cardiovascular : RRR, no JVP, trace lower extremity edema Respiratory : fair bilateral air entry, fine crackles, fine bilateral expiratory wheezes , on O2 supplement Gastrointestinal: soft, lax, Normal bowel sounds, Non tender Skin : Warm, Dry Neurological : Alert & oriented x3, No focal deficit Objective Data Active Medications Albuterol/Ipratropium (Albuterol/Iprat 2.5/0.5mg 3 Ml Ampul.Neb) 3 ml INHALE RQ4H WHILE AWAKE [facility] Last Admin: 07/09/23 08:44 Dose: 3 ml Documented By: GONZALO Amiodarone HCl (Amiodarone Hcl 200 Mg Tablet) 200 mg PO BEDTIME [facility] Last Admin: 07/08/23 20:51 Dose: 200 mg Documented By: BHAVANA Apixaban (Apixaban 5 Mg Tablet) 5 mg PO BID [facility] Last Admin: 07/09/23 08:28 Dose: 5 mg Documented By: MOLLY Diltiazem HCl (Diltiazem Hcl Cd 240 Mg Cap.Er.Deg) 240 mg PO BEDTIME [facility]; Protocol Last Admin: 07/08/23 20:51 Dose: 240 mg Documented By: BHAVANA Fluticasone/Vilanterol (Fluticasone/Vilanterol 200/25 Blst.W.Dev) 1 puff INHALE RDAILY [facility] Furosemide (Furosemide 40 Mg/4 Ml Vial) 40 mg IVPUSH BID@0900,1800 [facility]; Protocol Last Admin: 07/09/23 08:28 Dose: 40 mg Documented By: MOLLY Methimazole (Methimazole 5 Mg Tablet) 2.5 mg PO BEDTIME [facility] Last Admin: 07/08/23 20:53 Dose: 2.5 mg Documented By: BHAVANA Methylprednisolone Sodium Succinate (Methylprednisolone Sod Succ 40 Mg/Ml Vial) 40 mg IVPUSH Q12H [facility] Last Admin: 07/09/23 08:28 Dose: 40 mg Documented By: MOLLY Metoprolol Succinate (Metoprolol Succinate Er 100 Mg Tab.Er.24h) 100 mg PO BEDTIME [facility]; Protocol Last Admin: 07/08/23 20:50 Dose: 100 mg Documented By: BHAVANA Multivitamins/Vitamin C (Multivitamin Tablet) 1 tab PO BEDTIME [facility] Last Admin: 07/08/23 20:51 Dose: 1 tab Documented By: BHAVANA Omeprazole (Omeprazole 20 Mg Capsule.) 20 mg PO DAILY@0630 [facility] Last Admin: 07/09/23 05:44 Dose: 20 mg Documented By: EDWIGE Pharmacy Consult (Consult Rx Perform Med Rec) 1 each MISCELLANE ONCE PRN PRN Reason: Consult order Roflumilast (Roflumilast 500 Mcg Tablet) 500 mcg PO BEDTIME [facility] Last Admin: 07/08/23 20:52 Dose: 500 mcg Documented By: BHAVANA Sodium Chloride (0.9 % Sodium Chloride Flush 3 Ml Syringe) 3 ml IVFLUSH QSHIFT [facility] Last Admin: 07/09/23 08:28 Dose: 3 ml Documented By: MOLLY Thiamine HCl (Thiamine Hcl 100 Mg Tablet) 500 mg PO BEDTIME [facility] Last Admin: 07/08/23 20:51 Dose: 500 mg Documented By: BHAVANA Vitamin D (Cholecalciferol (Vitamin D3) 25 Mcg Tablet) 25 mcg PO BEDTIME [facility] Last Admin: 07/08/23 20:52 Dose: 25 mcg Documented By: BHAVANA Labs 07/09/23 05:42 07/09/23 05:42 Labs: Laboratory Results - last 24 hr 07/09/23 07/09/23 05:42 05:42 MCV 93.6 MCH 28.8 MCHC 30.8 L RDW 15.7 Plt Count 193 MPV 11.2 Absolute Nucleated RBC 0.000 Nucleated RBC % (auto) 0.0 Anion Gap 12 Estim Creat Clear Calc 135.6 Estimated GFR > 60 Fasting Glucose 127 H Calcium 9.7 D Assessment and Plan (1) Acute on chronic diastolic (congestive) heart failure: Status: Acute (2) Acute and chronic respiratory failure with hypoxia: Status: Acute (3) Acute exacerbation of chronic obstructive airways disease: Status: Acute Plan 62M PMH morbid obesity, chronic hypoxic respiratory failure due to COPD, OHS, DEVIN, chronic diastolic chf, htn, paroxysmal afib s/p ablation, hyperthyroid, history of pe, presented with sob Acute on chronic hypoxic respiratory failure due to COPD with acute decompensation/ohs/DEVIN/restrictive lung disease. IV steroids, bronchodilators, pulmonary eval appreciated CPAP at night Paroxysmal atrial fibrillation Diltiazem, Eliquis, metoprolol, amiodarone Chronic diastolic CHF IV Lasix p.o. Acetazolamide Acute Hyperkalemia Kayexalate Hypertension Diltiazem, metoprolol Morbid obesity Weight loss recommended Hyperthyroid Methimazole History of pulmonary embolism On Eliquis Full code Patient with significant hypoxia requiring high levels of O2 supplementation, at risk for further decompensation due to morbid obesity will require at overnight inpatient Time Spent With Patient Time: Total time managing care of this patient today ____ minutes. Quality Stroke Does the patient have a stroke diagnosis?: No VTE Prior VTE?: Yes VTE Risk Level:: Medical - moderate - high VTE Device Contraindication: Treatment Not Indicated VTE Drug Contraindication: N/A - Med Ordered
[2023-07-09] MEDS: Fluticasone/Vilanterol 200/25 BLST.W.DEV 1 PUFF INHALE (12:14)
[2023-07-09] MEDS: acetaZOLAMIDE 250 MG TABLET PO ×2 (14:02→20:21)
[2023-07-09] MEDS: Thiamine HCL 100 MG TABLET 500 MG PO (20:20)
[2023-07-09] MEDS: Metoprolol Succinate ER 100 MG TAB.ER.24H PO (20:21)
[2023-07-09] MEDS: dilTIAZem HCL CD 240 MG CAP.ER.DEG PO (20:21)
[2023-07-09] MEDS: Multivitamin TABLET 1 TAB PO (20:21)
[2023-07-09] MEDS: methIMAzole 5 MG TABLET 2.5 MG PO (20:21)
[2023-07-09] MEDS: Cholecalciferol (Vitamin D3) 25 MCG TABLET PO (20:21)
[2023-07-09] MEDS: Amiodarone HCL 200 MG TABLET PO (20:21)
[2023-07-09] MEDS: Roflumilast 500 MCG TABLET PO (20:21)
[2023-07-10] VITALS (10 sets, daily range): BP systolic 120–132; BP diastolic 58–74; PULSE 50–77; RESP 14–20; TEMP 36–36.7; O2SAT 88–95
[2023-07-10] MEDS: Omeprazole 20 MG CAPSULE.DR PO (06:42)
[2023-07-10 07:56] LABS: Anion Gap 11 (12-20); Blood Urea Nitrogen 23 mg/dL (9-16); Calcium 9.3 mg/dL (8.4-10.2); Carbon Dioxide 32 mmol/L (22-29); Chloride 99 mmol/L (96-108); Creatinine Clr Calc Pharmacy 135.6; Estimated Glomerular Filt Rate > 60; Glucose Random 121 mg/dL (60-115); Potassium 4.4 mmol/L (3.3-5.1); Sodium 138 mmol/L (135-145)
[2023-07-10] MEDS: Fluticasone/Vilanterol 200/25 BLST.W.DEV 1 PUFF INHALE (08:08)
[2023-07-10] MEDS: Albuterol/Iprat 2.5/0.5MG 3 ML AMPUL.NEB INHALE ×4 (08:08→19:59)
[2023-07-10] MEDS: Furosemide 40 MG/4 ML VIAL IVPUSH ×2 (09:41→18:00)
[2023-07-10] MEDS: Apixaban 5 MG TABLET PO ×2 (09:41→20:32)
[2023-07-10] MEDS: methylPREDNISolone Sod Succ 40 MG/ML VIAL IVPUSH ×2 (09:41→20:31)
[2023-07-10] MEDS: acetaZOLAMIDE 250 MG TABLET PO ×2 (09:41→20:31)
[2023-07-10] MEDS: 0.9 % Sodium Chloride Flush 3 ML SYRINGE IVFLUSH ×3 (09:42→20:32)
--- NOTE | 2023-07-10 11:18 | P.PNIM_ITS ---
Subjective Subjective Date of Service: 07/10/23 Interval History: Seen and evaluated Feels better overall but still dyspniec with minimal efforts weaning O2 down as tolerated resolved high potassium Review of Systems Review of Systems: Yes all other systems are reviewed and are negative Physical Exam Vital Signs: Vital Signs: Last Vital Signs Temp 98.0 F 07/10/23 07:42 Pulse 56 07/10/23 08:09 Resp 20 07/10/23 08:09 BP 126/72 07/10/23 07:42 Pulse Ox 92 07/10/23 07:42 O2 Del Method Nasal Cannula 07/10/23 07:42 O2 Flow Rate 5 07/10/23 07:42 Oxygen Flow Rate 5.5 07/08/23 07:50 BMI result Body Mass Index 47.0 Const: Other: Constitutional : Awake, interactive, morbidly obese, in mild distress Neck : Normal inspection, Supple Cardiovascular : RRR, no JVP, trace lower extremity edema Respiratory : decreased bilateral air entry, fine crackles, fine bilateral expiratory wheezes , on O2 supplement Gastrointestinal: soft, lax, Normal bowel sounds, Non tender Skin : Warm, Dry Neurological : Alert & oriented x3, No focal deficit Objective Data Active Medications Acetazolamide (Acetazolamide 250 Mg Tablet) 250 mg PO BID [facility] Last Admin: 07/10/23 09:41 Dose: 250 mg Documented By: MAXINE Albuterol/Ipratropium (Albuterol/Iprat 2.5/0.5mg 3 Ml Ampul.Neb) 3 ml INHALE RQ4H WHILE AWAKE [facility] Last Admin: 07/10/23 08:08 Dose: 3 ml Documented By: MELECIO Amiodarone HCl (Amiodarone Hcl 200 Mg Tablet) 200 mg PO BEDTIME [facility] Last Admin: 07/09/23 20:21 Dose: 200 mg Documented By: ARLIN Apixaban (Apixaban 5 Mg Tablet) 5 mg PO BID [facility] Last Admin: 07/10/23 09:41 Dose: 5 mg Documented By: MAXINE Diltiazem HCl (Diltiazem Hcl Cd 240 Mg Cap.Er.Deg) 240 mg PO BEDTIME [facility]; Protocol Last Admin: 07/09/23 20:21 Dose: 240 mg Documented By: ARLIN Fluticasone/Vilanterol (Fluticasone/Vilanterol 200/25 Blst.W.Dev) 1 puff INHALE RDAILY [facility] Last Admin: 07/10/23 08:08 Dose: 1 puff Documented By: MELECIO Furosemide (Furosemide 40 Mg/4 Ml Vial) 40 mg IVPUSH BID@0900,1800 [facility]; Protocol Last Admin: 07/10/23 09:41 Dose: 40 mg Documented By: MAXINE Methimazole (Methimazole 5 Mg Tablet) 2.5 mg PO BEDTIME [facility] Last Admin: 07/09/23 20:21 Dose: 2.5 mg Documented By: ARLIN Methylprednisolone Sodium Succinate (Methylprednisolone Sod Succ 40 Mg/Ml Vial) 40 mg IVPUSH Q12H [facility] Last Admin: 07/10/23 09:41 Dose: 40 mg Documented By: MAXINE Metoprolol Succinate (Metoprolol Succinate Er 100 Mg Tab.Er.24h) 100 mg PO BEDTIME [facility]; Protocol Last Admin: 07/09/23 20:21 Dose: 100 mg Documented By: ARLIN Multivitamins/Vitamin C (Multivitamin Tablet) 1 tab PO BEDTIME [facility] Last Admin: 07/09/23 20:21 Dose: 1 tab Documented By: ARLIN Omeprazole (Omeprazole 20 Mg Capsule.Dr) 20 mg PO DAILY@0630 [facility] Last Admin: 07/10/23 06:42 Dose: 20 mg Documented By: ROSIE Pharmacy Consult (Consult Rx Perform Med Rec) 1 each MISCELLANE ONCE PRN PRN Reason: Consult order Roflumilast (Roflumilast 500 Mcg Tablet) 500 mcg PO BEDTIME [facility] Last Admin: 07/09/23 20:21 Dose: 500 mcg Documented By: ARLIN Sodium Chloride (0.9 % Sodium Chloride Flush 3 Ml Syringe) 3 ml IVFLUSH QSHIFT [facility] Last Admin: 07/10/23 09:42 Dose: 3 ml Documented By: MAXINE Thiamine HCl (Thiamine Hcl 100 Mg Tablet) 500 mg PO BEDTIME [facility] Last Admin: 07/09/23 20:20 Dose: 500 mg Documented By: ARLIN Vitamin D (Cholecalciferol (Vitamin D3) 25 Mcg Tablet) 25 mcg PO BEDTIME [facility] Last Admin: 07/09/23 20:21 Dose: 25 mcg Documented By: ARLIN Labs 07/09/23 05:42 07/10/23 07:23 Labs: Laboratory Results - last 24 hr 07/10/23 07:23 Anion Gap 11 L Estim Creat Clear Calc 135.6 Estimated GFR > 60 Random Glucose 121 H Calcium 9.3 Assessment and Plan (1) Acute on chronic diastolic (congestive) heart failure: Status: Acute (2) Acute and chronic respiratory failure with hypoxia: Status: Acute (3) Acute exacerbation of chronic obstructive airways disease: Status: Acute Plan 62M PMH morbid obesity, chronic hypoxic respiratory failure due to COPD, OHS, DEVIN, chronic diastolic chf, htn, paroxysmal afib s/p ablation, hyperthyroid, history of pe, presented with sob Acute on chronic hypoxic respiratory failure due to COPD with acute decompensation/ohs/DEVIN/restrictive lung disease. continue IV steroids, bronchodilators ATC and PRN pulmonary eval appreciated CPAP at night Paroxysmal atrial fibrillation Diltiazem, Eliquis, metoprolol, amiodarone Chronic diastolic CHF in mild exacerbation continue IV Lasix with good negative balance Acetazolamide Acute Hyperkalemia Kayexalate Hypertension Diltiazem, metoprolol Morbid obesity Weight loss recommended Hyperthyroid Methimazole History of pulmonary embolism On Eliquis Full code Patient with significant hypoxia requiring high levels of O2 supplementation, at risk for further decompensation due to morbid obesity will require at overnight inpatient Time Spent With Patient Time: Total time managing care of this patient today ____ minutes. Quality Stroke Does the patient have a stroke diagnosis?: No VTE Prior VTE?: Yes VTE Risk Level:: Medical - moderate - high VTE Device Contraindication: Treatment Not Indicated VTE Drug Contraindication: N/A - Med Ordered
[2023-07-10] MEDS: Thiamine HCL 100 MG TABLET 500 MG PO (20:31)
[2023-07-10] MEDS: Metoprolol Succinate ER 100 MG TAB.ER.24H PO (20:31)
[2023-07-10] MEDS: Roflumilast 500 MCG TABLET PO (20:32)
[2023-07-10] MEDS: Multivitamin TABLET 1 TAB PO (20:32)
[2023-07-10] MEDS: methIMAzole 5 MG TABLET 2.5 MG PO (20:32)
[2023-07-10] MEDS: dilTIAZem HCL CD 240 MG CAP.ER.DEG PO (20:32)
[2023-07-10] MEDS: Cholecalciferol (Vitamin D3) 25 MCG TABLET PO (20:32)
[2023-07-10] MEDS: Amiodarone HCL 200 MG TABLET PO (20:32)
[2023-07-11 04:00] VITALS: PULSE 66; RESP 17; TEMP 36.4; O2SAT 92
[2023-07-11] MEDS: Omeprazole 20 MG CAPSULE.DR PO (05:59)
[2023-07-11 06:01] VITALS: BP 123/73
[2023-07-11 07:27] VITALS: PULSE 68; RESP 18; O2SAT 93
[2023-07-11] MEDS: Fluticasone/Vilanterol 200/25 BLST.W.DEV 1 PUFF INHALE (07:27)
[2023-07-11] MEDS: Albuterol/Iprat 2.5/0.5MG 3 ML AMPUL.NEB INHALE ×2 (07:27→11:05)
[2023-07-11 07:39] VITALS: BP 127/69; PULSE 60; RESP 20; TEMP 37; O2SAT 96
[2023-07-11] MEDS: Apixaban 5 MG TABLET PO (09:12)
[2023-07-11] MEDS: methylPREDNISolone Sod Succ 40 MG/ML VIAL IVPUSH (09:12)
[2023-07-11] MEDS: 0.9 % Sodium Chloride Flush 3 ML SYRINGE IVFLUSH (09:12)
[2023-07-11] MEDS: Furosemide 40 MG/4 ML VIAL IVPUSH (09:12)
[2023-07-11] MEDS: acetaZOLAMIDE 250 MG TABLET PO (09:12)
--- NOTE | 2023-07-11 10:52 | PM.DS ---
DS: Providers Provider Date of Service: 07/11/23 Date of admission: 07/08/23 09:37 Primary care physician: Alea Hull MD Consults: 07/08/23 09:35 Consult to Pulmonology Routine Consulting Provider: [facility] Pulmonology Services Reason for consultation: hypoxia, copd, restrictive, ohs DS: Diagnosis Discharge Diagnosis (1) Acute on chronic diastolic (congestive) heart failure: Status: Acute (2) Acute and chronic respiratory failure with hypoxia: Status: Acute (3) Acute exacerbation of chronic obstructive airways disease: Status: Acute (4) Hypoxia: Status: Acute DS: Summary Hospital Course Hospital Course: Admission note HPI 62M PMH morbid obesity, chronic hypoxic respiratory failure due to COPD, OHS, DEVIN, chronic diastolic chf, htn, paroxysmal afib s/p ablation, hyperthyroid, history of pe, presented with sob. patient states his sob has been getting progressively worse over last 2 months. initially on exertion, now at rest. has been needing to increase his home o2 supplement. recent PFTs may 2023 showed severe obstruction with FEV1 - 21%, FEV1/FVC 41, and moderate? restritive pattern. was at pulm rehab and send to ED for tachypnea and severe hypoxia to 70s. in ED cxr unremarkable, requiring 5.5L to maintain o2 around 89%. Hospital course # Acute on chronic hypoxic respiratory failure due to COPD with acute decompensation/ohs/DEIVN/restrictive lung disease. Treated with IV steroids, bronchodilators ATC and PRN as he was evaluated by mobile marketing specialist. CPAP used at night as he improved clinically during hospital stay weaning his O2 to room air up to 2L on occasions. his goal is to get off O2 during the day which he will try to achieve at home. # Chronic diastolic CHF in mild exacerbation with LE edema treated with IV Lasix with good negative balance during the hospital stay as he was seen by hoist operator. An Echo was done showing normal EF with LVH. To be discharged home on higher dose of Lasix and tapering dose steroids to continue Nebulizers and wean down Oxygen as tolerated. Continue nebulizers 4 times a day at home for the next week Prednisone tapering dose as prescribed Take extra Lasix tablet in the morning for next week and as needed after that for fluid overload Wean Oxygen down as tolerated Time Spent with Patient Time attestation: Total time managing care of this patient today ____ minutes. Discharge coordination time: Greater than 30 minutes Quality: Safe Use of Opioids Does Pt have an Active Cancer Diagnosis on the Problem List?: No Quality: Stroke Does the patient have a stroke diagnosis?: No Physical Exam Vital Signs: Vital Signs: Last Vital Signs Temp 98.6 F 07/11/23 07:39 Pulse 60 07/11/23 07:39 Resp 20 07/11/23 07:39 BP 127/69 07/11/23 07:39 Pulse Ox 96 07/11/23 07:39 O2 Del Method Room Air 07/11/23 07:39 O2 Flow Rate 3 07/10/23 19:27 Oxygen Flow Rate 5.5 07/08/23 07:50 BMI result Body Mass Index 47.0 Const: Other: Constitutional : Awake, interactive, morbidly obese, in mild distress Neck : Normal inspection, Supple Cardiovascular : RRR, no JVP, trace lower extremity edema Respiratory : fair bilateral air entry, no crackles, no significant bilateral expiratory wheezes , on O2 supplement Gastrointestinal: soft, lax, Normal bowel sounds, Non tender Skin : Warm, Dry Neurological : Alert & oriented x3, No focal deficit DS: Data Imaging Chest x-ray: Radiologist's impression: ITS Impressions Chest X-Ray 07/08/23 08:26 IMPRESSION: No acute cardiopulmonary process. Discharge Plan Discharge Anticipated Discharge Date/Time: 07/11/23 10:44 Patient Disposition: Home, Self-Care Discharge Diagnosis: COPD and heart failure exacerbations Referrals: Alea Hull MD [Primary Care Provider] - 1 Week Discharge Medications: New furosemide 40 mg tablet 40 mg PO QAM PRN (Reason: edema) Qty: 30 0RF prednisone 10 mg tablet See Taper PO DIRECTED Qty: 30 0RF Taper: Prednisone 40 mg daily for 3 Days and 0 Hour 30 mg daily for 3 Days and 0 Hour 20 mg daily for 3 Days and 0 Hour 10 mg daily for 3 Days and 0 Hour Rx Instructions: see taper instructions Continued multivitamin Tablet 1 tab PO BEDTIME furosemide 40 mg Tablet 40 mg PO BID albuterol sulfate 2.5 mg /3 mL (0.083 %) Solution For Nebulization 2.5 mg INHALATION Q4H PRN (Reason: Wheezing) diltiazem HCl 240 mg Capsule,Extended Release 24 Hr 240 mg PO BEDTIME albuterol sulfate 90 mcg/actuation Hfa Aerosol Inhaler 2 puff INHALATION QID PRN (Reason: Wheezing) cholecalciferol (vitamin D3) 25 mcg (1,000 unit) Tablet 25 mcg PO BEDTIME Spiriva Respimat 2.5 mcg/actuation Mist 1 puff INHALATION BID Eliquis 5 mg Tablet 5 mg PO BID amiodarone 200 mg Tablet 200 mg PO BEDTIME methimazole 5 mg tablet 2.5 mg PO BEDTIME metoprolol succinate 100 mg tablet extended release 24 hr 100 mg PO BEDTIME roflumilast 500 mcg tablet 500 mcg PO BEDTIME thiamine HCl (vitamin B1) 500 mg Tablet 500 mg PO BEDTIME acetaminophen 500 mg Tablet 1,000 mg PO Q6H PRN (Reason: Pain) azelastine 137 mcg (0.1 %) aerosol,spray 2 spray intranasal DAILY PRN (Reason: Allergy Symptoms) vitamin E 268 mg (400 unit) Capsule 268 mg PO BEDTIME budesonide-formoterol [Symbicort] 160-4.5 mcg/actuation Hfa Aerosol Inhaler 2 puff INHALATION BID omega 8-rex-she-fish oil [Fish Oil] 300-1,000 mg Capsule 1 cap PO BEDTIME omeprazole magnesium 20 mg Capsule,Delayed Release(Dr/Ec) 20 mg PO DAILY@0630 (DME) compr.stocking,knee,long,large Misc See Rx Instructions .Route Qty: 12 0RF Rx Instructions: As directed Discharge Orders: Discharge Order (Routine); Ordered 07/11/23 Ordered By: Benny Huertas Diet: Low salt diet Activity on Discharge: As tolerated Stand Alone Forms: Patient Portal Discharge page Care Plan Goals: Read below Health Concerns: Read below Plan of Treatment: Read below Assessment: You were admitted for treatment of exacerbation of COPD and heart failure treated with IV steroids and Lasix along with nebulizers with good response over the course of hospital stay as you were evaluated by heart and lungs specialists. Continue nebulizers 4 times a day at home for the next week Prednisone tapering dose as prescribed Take extra Lasix tablet in the morning for next week and as needed after that for fluid overload Wean Oxygen down as tolerated Discharge Date/Time: 07/11/23 14:02
[2023-07-11 11:05] VITALS: PULSE 70; RESP 20; O2SAT 92
[2023-07-11 11:12] VITALS: BP 120/90; PULSE 65; RESP 20; TEMP 36.5; O2SAT 97
--- NOTE | 2023-07-11 12:41 | MHC.CM.PN ---
Pt is medically cleared for D/C home self-care, he has home O2 with [employer] that will resume. Pt has his own car in parking lot and will transport himself home.
== END 2023-07-11 14:02 | disposition home or self-care (01) | DRG 140 ==
LOC: HO.ED 09:02 → HO.EDOVER 09:40 → HO.IMC 15:58
PROVIDERS: Admitting Provider Internal Medicine; Emergency Provider Emergency Medicine; PCP Internal Medicine; Visit Provider Student in an Organized Health Care Education/Training Program
DX: J44.1 Chronic obstructive pulmonary disease with (acute) exacerbation (principal); J96.21 Acute and chronic respiratory failure with hypoxia; I50.33 Acute on chronic diastolic (congestive) heart failure; I48.0 Paroxysmal atrial fibrillation; E87.6 Hypokalemia; E87.5 Hyperkalemia; E05.90 Thyrotoxicosis, unspecified without thyrotoxic crisis or storm; E66.2 Morbid (severe) obesity with alveolar hypoventilation; Z99.81 Dependence on supplemental oxygen; Z86.711 Personal history of pulmonary embolism; Z68.42 Body mass index [BMI] 45.0-49.9, adult; Z71.3 Dietary counseling and surveillance; Z87.891 Personal history of nicotine dependence; Z79.01 Long term (current) use of anticoagulants; Z79.899 Other long term (current) drug therapy
CPT/HCPCS: 36415; 71045; 80048; 83880; 84484; 85025; 85027; 85379; 93005; 93306; 94640; 99285; J1940; J2920; J2930; J3475; Q9957

== ENCOUNTER → 2023-07-08 08:00 | Outpatient (BNV) | payer BC, SELFPAY | PROVIDERS: Admitting Provider Internal Medicine; Emergency Provider Emergency Medicine; PCP Internal Medicine; Visit Provider Internal Medicine Cardiovascular Disease | DX: I49.1 Atrial premature depolarization (principal) | CPT/HCPCS: 93010; 93306 ==

== ENCOUNTER → 2023-07-08 09:37 | Outpatient (BNV) | payer BC, SELFPAY | PROVIDERS: Admitting Provider Internal Medicine; Emergency Provider Emergency Medicine; PCP Internal Medicine; Visit Provider Internal Medicine Pulmonary Disease | DX: J96.21 Acute and chronic respiratory failure with hypoxia (principal); I50.33 Acute on chronic diastolic (congestive) heart failure; J44.9 Chronic obstructive pulmonary disease, unspecified | CPT/HCPCS: 99232 ==

== ENCOUNTER → 2023-07-08 09:37 | Outpatient (BNV) | payer BC, SELFPAY | PROVIDERS: Admitting Provider Internal Medicine; Emergency Provider Emergency Medicine; PCP Internal Medicine; Visit Provider Internal Medicine | DX: I50.33 Acute on chronic diastolic (congestive) heart failure (principal); J96.21 Acute and chronic respiratory failure with hypoxia; J44.1 Chronic obstructive pulmonary disease with (acute) exacerbation | CPT/HCPCS: 99223; 99232; 99233; 99239 ==

== ENCOUNTER 2023-07-16 09:26 | Outpatient (AMB) | payer BC, SELFPAY ==
[2023-07-16 09:29] VITALS: BP 104/60; PULSE 71; O2SAT 93; BMI 45.5
--- NOTE | 2023-07-16 09:29 | A.OFFPC_ITS ---
Vital Signs 07/16/23 09:29 Height 5 ft 11 in Weight 326 lb BMI 45.5 BP 104/60 Blood Pressure Location Rt brachial Position Sitting Pulse 71 Pulse Source Pulse Oximeter Pulse Oximetry (%) 93 Oxygen Delivery Method Room Air Intake Visit Reasons: TCM Intake Note: Pt is here today for TCM. Allergies No Known Allergies Allergy (Verified 07/16/23 09:37) Medication List - Last Reconciled 07/16/23 by Alea Hull MD acetaminophen 1,000 mg PO Q6H PRN albuterol sulfate 90 mcg/actuation 2 puffs inhalation QID PRN albuterol sulfate 2.5 mg inhalation Q4H PRN amiodarone 200 mg PO BEDTIME apixaban (Eliquis) 5 mg PO BID azelastine 2 sprays intranasal DAILY PRN budesonide-formoterol 160-4.5 mcg/actuation (Symbicort) 2 puffs inhalation BID cholecalciferol (vitamin D3) 25 mcg PO BEDTIME compr.stocking,knee,long,large As directed diltiazem HCl ER 240 mg PO BEDTIME furosemide 40 mg PO BID furosemide 40 mg PO QAM PRN methimazole 2.5 mg PO BEDTIME metoprolol succinate ER 100 mg PO BEDTIME multivitamin 1 tab PO BEDTIME omega 1-xaj-nre-fish oil 300-1,000 mg (Fish Oil) 1 cap PO BEDTIME omeprazole magnesium 20 mg PO DAILY@0630 prednisone See Taper mg PO DIRECTED roflumilast 500 mcg PO BEDTIME thiamine HCl (vitamin B1) 500 mg PO BEDTIME tiotropium bromide 2.5 mcg/actuation (Spiriva Respimat) 1 puff inhalation BID vitamin E 268 mg PO BEDTIME Tobacco use date assessed: 07/16/23 Dental Screening Dental Screen Date: 07/16/23 Did you have a dental visit in the last 12 months?: Yes Did you have a dental problem in the last 6 months where you did not have access to dental care?: No Was dental information given to patient?: Patient has dentist HPI TCM HPI Details Patient presents for the follow-up of hospitalization for COPD exacerbation. Patient was treated with IV prednisone updrafts and supplemental O2. Patient has been taking prednisone taper and is feeling better. He has been monitor his oxygen on regular basis and using it to keep O2 saturation at 92. He has an appointment with electrotherapist next week. Patient is planning to restart pulmonary rehab. He has been using his CPAP every night with supplemental O2. Patient has been taking 120 mg of furosemide since discharge and lower extremity swelling improved significantly. TCM TCM Information Date of Discharge 07/11/23 Discharged From [facility] Interactive Contact Date (Reference documentation from this date) 07/14/23 [facility] Surgical History H/O cardiac radiofrequency ablation Family History Father Bone cancer Mother COPD (chronic obstructive pulmonary disease) Social History Household Members: Spouse Household Members Other:: Housing: House Do you presently have visiting nurse or other home services: No Unable to assess alcohol history related to: Unknown Alcohol intake: current Alcohol intake frequency: a few times a month Patient Tobacco Use Status: Former Tobacco user Years Smoked: 30 years e-Cigarette/Vaping Use: Never Used Second Hand Smoke Exposure: No Advance Directives Date on File: 07/02/22 service: No Current occupational status: employed Cognitive needs: No Hearing needs: No Vision needs: Yes Questionnaire Thrive Questionnaire Date Thrive assessed: 04/24/23 AUDIT C Alcohol Use Questionnaire (AUDIT-C) 1. How often do you have a drink containing alcohol?: Monthly or less 2. How many drinks containing alcohol do you have on a typical day when you are drinking?: 1 or 2 3. How often do you have six or more drinks on one occasion?: Never Total Score: 1 WILEY-7 AMB Questionnaire WILEY-7 Date WILEY - 7 assessed: 04/24/23 Source: Developed by Drs. Tre Maya, Kay Win, Hoang Bethea and colleagues, with an educational padmaja from [employer]. Review of Systems Const All systems reviewed & are unremarkable except as noted in HPI and below Reports no additional complaints Eyes Reports no additional complaints ENT Reports no additional complaints Card Reports no additional complaints Resp Reports no additional complaints GI Reports no additional complaints Reports no additional complaints Physical exam (Primary Care) Vital Signs: Last Vital Signs Pulse 71 07/16/23 09:29 BP 104/60 07/16/23 09:29 Pulse Ox 93 07/16/23 09:29 Oxygen Delivery Method Room Air 07/16/23 09:29 BMI result Body Mass Index 45.5 Tobacco/Smoking Status: Tobacco use Status Tobacco use date assessed 07/16/23 07/16/23 09:35 Patient Tobacco Use Status Former Tobacco user 07/16/23 09:35 e-Cigarette/Vaping Use Never Used 07/16/23 09:29 Thrive Assessment: Date of Thrive Assessment Date Thrive assessed 04/24/23 07/16/23 09:29 Const General: no acute distress HENMT Head: Yes normal to inspection General nose exam: Normal external nose present Mouth: Normal oral and palatal mucosa present Neck Neck: Yes supple Resp Effort & Inspection: normal respiratory effort Auscultation: crackles on the right (base) and diminished lung sounds Cardio Rhythm: regular rhythm Heart sounds: S1 normal heart sound present and S2 normal heart sound present GI Inspection: Yes normal to inspection Palpation (GI): Soft to palpation Percussion: Yes normal to percussion Auscultation: normal bowel sounds Extrem General: Yes no clubbing, cyanosis or edema Assessment and Plan Assessment & Plan (1) Acute on chronic diastolic (congestive) heart failure: Comment: Echocardiogram 07/23 normal EF, nl RV systolic function Code(s): I50.33 - Acute on chronic diastolic (congestive) heart failure Plan: Continue current medications check metabolic panel on higher dose of furosemide. Patient will decrease furosemide to 80 mg daily next week. He has a follow-up appointment with staff pharmacist hospital (2) Hyperthyroidism: Code(s): E05.90 - Thyrotoxicosis, unspecified without thyrotoxic crisis or storm Plan: cont Methimazole , check TSH (3) A-fib: Comment: Echo 07/2022 [facility] nl EF, LVH, nl valves ,? pul HTN (on previous echo) Code(s): I48.91 - Unspecified atrial fibrillation Plan: Continue current medications (4) COPD (chronic obstructive pulmonary disease): Comment: ex TOBACCO 2007 Code(s): J44.9 - Chronic obstructive pulmonary disease, unspecified Plan: Continue current medications. Patient has an appointment with electrotherapist. (5) Chronic respiratory failure: Comment: on supplemental O2 PRN Code(s): J96.10 - Chronic respiratory failure, unspecified whether with hypoxia or hypercapnia Orders: Orders Basic Metabolic Panel Today E05.90 - Thyrotoxicosis, unspecified without thyrotoxic crisis or storm, I50.33 - Acute on chronic diastolic (congestive) heart failure TSH reflex Free T4 Today E05.90 - Thyrotoxicosis, unspecified without thyrotoxic crisis or storm Coding Level of Care Code Est Pt Level 4 (47987) Diagnoses Acute on chronic diastolic (congestive) heart failure I50.33 Hyperthyroidism E05.90 A-fib I48.91 COPD (chronic obstructive pulmonary disease) J44.9 Chronic respiratory failure J96.10
== END 2023-07-16 10:16 | disposition home or self-care (01) ==
LOC: HO.HMGC 09:26
PROVIDERS: PCP Internal Medicine; Visit Provider Internal Medicine
DX: I50.33 Acute on chronic diastolic (congestive) heart failure (principal); E05.90 Thyrotoxicosis, unspecified without thyrotoxic crisis or storm; I48.91 Unspecified atrial fibrillation; J44.9 Chronic obstructive pulmonary disease, unspecified; J96.10 Chronic respiratory failure, unspecified whether with hypoxia or hypercapnia
CPT/HCPCS: 99214

== ENCOUNTER 2023-07-16 09:55 | Outpatient (REF) | payer BC, SELFPAY ==
[2023-07-16 13:40] LABS: Anion Gap 14 (12-20); Blood Urea Nitrogen 25 mg/dL (9-16); Calcium 8.9 mg/dL (8.4-10.2); Carbon Dioxide 38 mmol/L (22-29); Chloride 96 mmol/L (96-108); Estimated Glomerular Filt Rate > 60; Glucose Random 100 mg/dL (60-115); Sodium 144 mmol/L (135-145)
[2023-07-16 14:02] LABS: TSH reflex Free T4 0.67 uIU/mL (0.32-4.0)
== END 2023-07-16 09:56 | disposition home or self-care (01) ==
LOC: HO.HMGCLDS 09:55
PROVIDERS: PCP Internal Medicine; Visit Provider Internal Medicine
DX: E05.90 Thyrotoxicosis, unspecified without thyrotoxic crisis or storm (principal); I50.33 Acute on chronic diastolic (congestive) heart failure
CPT/HCPCS: 36415; 80048; 84443

== ENCOUNTER 2023-07-21 09:45 | Outpatient (AMB) | payer BC, SELFPAY ==
--- NOTE | 2023-07-21 10:00 | A.OFFVIS_ITS ---
Intake Vital Signs 07/21/23 10:01 Height 5 ft 11 in Weight 332 lb 14.368 oz BMI 46.4 BP 142/68 H Blood Pressure Location Lt brachial Position Sitting Pulse 66 Pulse Source Pulse Oximeter Pulse Oximetry (%) 93 Oxygen Delivery Method Room Air Comment 2 Liters Oxygen([employer]) Intake Visit Reasons: COPD Inbound Call Center Representative Required: No Allergies No Known Allergies Allergy (Verified 07/21/23 10:04) HPI HPI Comments History of Present Illness Details The patient is here for pulmonary evaluation. The patient is a 62 y/o man with a H morbid obesity, chronic hypoxic respiratory failure due to COPD, OHS, DEVIN, chronic diastolic chf, htn, paroxysmal afib s/p ablation, hyperthyroid, history of pe, presented with dyspnea to the [facility] ED in early July. The patient states his sob has been getting progressively worse over last 2 months. initially on exertion, now at rest. has been needing to increase his home o2 supplement. recent PFTs may 2023 showed severe obstruction with F EV1 - 21%. The patient typically responds well to prednisone. He started feeling better. During the hospitalization he did have an ABG demonstrating a chronic hypercarbic respiratory failure secondary to likely has advanced COPD. He does use a BiPAP or a noninvasive ventilator at home. Will try to get a download from his [employer], [employer]. In the meantime he is completing the prednisone taper. Will go ahead and optimize his respiratory therapy by switching over to Trelegy. She continues use the oxygen with good effect. He was participating in pulmonary rehabilitation when he was sent to the ER. He is going to try to get back to pulmonary rehabilitation at this time. If the patient is not better once he completes the prednisone and would like to restart his lower dose he will call for additional prednisone. [facility] Medical History (Updated 07/21/23 @ 20:51 by Ronak Mills MD) COPD (chronic obstructive pulmonary disease) Lung mass Surgical History H/O cardiac radiofrequency ablation Family History Father Bone cancer Mother COPD (chronic obstructive pulmonary disease) Social History Household Members: Spouse Household Members Other:: Housing: House Do you presently have visiting nurse or other home services: No Unable to assess alcohol history related to: Unknown Alcohol intake: current Alcohol intake frequency: a few times a month Patient Tobacco Use Status: Former Tobacco user Years Smoked: 30 years e-Cigarette/Vaping Use: Never Used Second Hand Smoke Exposure: No Advance Directives Date on File: 07/02/22 service: No Current occupational status: employed Cognitive needs: No Hearing needs: No Vision needs: Yes Review of Systems Const Denies fever(s) Eyes Denies exophthalmos Card Denies chest pain and Reports dyspnea on exertion Resp Reports chest congestion, Reports dyspnea on exertion and Reports wheezing GI Reports no additional complaints Musc Reports no additional complaints Skin/Breast Denies rash Neuro Reports no additional complaints Venu/Lymph Denies lymphadenopathy Aller/Immun Reports wheezing Physical Exam Vital Signs: Last Vital Signs Pulse 66 07/21/23 10:01 BP 142/68 H 07/21/23 10:01 Pulse Ox 93 07/21/23 10:01 Oxygen Delivery Method Room Air 07/21/23 10:01 BMI result Body Mass Index 46.4 Const General: comfortable HEENT Head: Yes atraumatic Neck Neck: Yes supple Chest Chest palpation & inspection: normal inspection of the chest Resp Effort & Inspection: normal respiratory effort Auscultation: diminished lung sounds Cardio Rate: regular rate Rhythm: regular rhythm Heart sounds: S1 normal heart sound present and S2 normal heart sound present GI Palpation (GI): Soft to palpation Skin General skin exam: no rashes or lesions noted Extrem General: Yes no clubbing, cyanosis or edema Results Reviewed Results Reviewed: [place] [address] CT Scan Report Signed Patient: Mario Dolan Jr MR#: [id number] : 1960 Acct:[id number] Age/Sex: 62 / M ADM Date: 05/20/23 Loc: HO.CT Attending Dr: Alea Hull MD Ordering Physician: Alea Hull MD Date of Service: 05/20/23 Procedure(s): CT chest [facility] High Res Accession Number(s): [id number] cc: Alea Hull MD~ EXAMINATION: CT CHEST WITHOUT CONTRAST HIGH-RESOLUTION CLINICAL INFORMATION: Chronic respiratory failure.? COMPARISON: Previous chest x-ray July 2022.? TECHNIQUE: Axial images through the chest without IV contrast. Sagittal and coronal reconstructions on the technologist workstation were performed. This CT examination was performed using dose optimization techniques as appropriate, variously including the following: *Automated exposure control *Adjustment of mA and/or kV according to patient size (this includes techniques or standardized protocols for targeted exams where dose is matched to indication/reason for exam; i.e. extremities or head) *Use of iterative reconstruction technique PATIENT DOSE: 374 mGy-cm. FINDINGS: There is heterogeneous attenuation in the lungs questionable for hypoventilatory changes related to air trapping. There is a 3 mm calcified peripheral or subpleural left upper lobe nodule axial image 52 series 12. There is scarring or subsegmental atelectasis in the posterior segment of the right upper lobe near the major fissure axial image 53 series 12. There is bullous or cystic change at the right lung base in the lateral segment of the right middle lobe and anterior basal right lower lobe. There is peripheral or subpleural right lower lobe mass-like density adjacent to the diaphragmatic pleural surface. This measures 2.2 x 5.7 cm in AP and transverse dimension and 1 cm in length. This has more old central bronchovascular pattern. Appearance is questionable for a round atelectasis related to pleural disease. There is a 3 mm calcified left lower lobe pulmonary nodule. No endobronchial or endotracheal lesion. There is flattening of the trachea and right and left mainstem bronchi questionable for tracheomalacia. The heart does not appear enlarged. Mild coronary artery calcification. No pericardial effusion. Pulmonary arteries are enlarged, questionable for pulmonary artery hypertension. Main pulmonary artery measures 4 cm. The thoracic aorta is normal in caliber. There are no enlarged hilar or mediastinal lymph nodes. There is right diaphragmatic pleural thickening and calcification. Appearance is questionable for asbestos-related pleural disease. No left pleural thickening. No pleural effusion. Images through the upper abdomen are unremarkable. No chest wall mass or enlarged axillary lymph nodes. Degenerative changes of the spine. CT/CT chest wo con - High Res IMPRESSION: Bullous or cystic changes at the right lung base in the right middle and right lower lobes. Right diaphragmatic pleural thickening and calcification. Adjacent peripheral or subpleural mass-like density in the right lower lobe, question representing round atelectasis related to pleural disease. Enlarged pulmonary arteries suggestive of pulmonary artery hypertension. Decreased AP dimension of the trachea and right and left mainstem bronchi questionable for tracheomalacia. Small calcified and noncalcified pulmonary nodules.? According to the UPDATED 2017 Fleischner Society recommendations, the advised followup imaging for less than 7 mm nodule: Low risk, and no chest CT followup and high risk, optional chest CT followup in one year. Dictated By: Selina Deng MD Signed By: <Electronically signed by Selina Deng MD in OV> 05/27/23 1711 DD/ 0801 TD/TT:? 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: [employer] Assessment & Plan Assessment & Plan (1) COPD (chronic obstructive pulmonary disease): Comment: ex TOBACCO 2007 Code(s): J44.9 - Chronic obstructive pulmonary disease, unspecified Qualifiers: COPD type: chronic bronchitis Chronic bronchitis type: mixed simple and mucopurulent Qualified Code(s): J41.8 - Mixed simple and mucopurulent chronic bronchitis (2) Chronic respiratory failure: Comment: on supplemental O2 PRN Code(s): J96.10 - Chronic respiratory failure, unspecified whether with hypoxia or hypercapnia Qualifiers: Respiratory failure complication: hypoxia and hypercapnia Qualified Code(s): J96.11 - Chronic respiratory failure with hypoxia; J96.12 - Chronic respiratory failure with hypercapnia (3) Hx pulmonary embolism: Comment: 2013, on lifetime anticoagulation Code(s): Z86.711 - Personal history of pulmonary embolism (4) Sleep apnea: Code(s): G47.30 - Sleep apnea, unspecified Qualifiers: Sleep apnea type: obstructive Qualified Code(s): G47.33 - Obstructive sleep apnea (adult) (pediatric) (5) Lung mass: Code(s): R91.8 - Other nonspecific abnormal finding of lung field Plan Start Trelegy Continue Daliresp REY as needed continue oxygen supplementation BIPAP at night, will request a download from his [employer] ([employer]) restart Pulmonary rehab prednisone taper continue Eliquis lung mass likely rounded atelectasis associated with a calcified pleural plaque. Will need close f/u. Likely Oct 2023 F/U 2-3 months Medications: New hnctswuycoi-yelibtvkm-agxzzkyf 200-62.5-25 mcg (Trelegy Ellipta) 1 inh inhalation DAILY 30 days 60 ea 12RF Coding Level of Care Code New Pt Level 4 (93843) Diagnoses COPD (chronic obstructive pulmonary disease) J41.8 COPD type: chronic bronchitis Chronic bronchitis type: mixed simple and mucopurulent Chronic respiratory failure J96.11; J96.12 Respiratory failure complication: hypoxia and hypercapnia Hx pulmonary embolism Z86.711 Sleep apnea G47.33 Sleep apnea type: obstructive Lung mass R91.8 Time Spent (min) 40
[2023-07-21 10:01] VITALS: BP 142/68; PULSE 66; O2SAT 93; BMI 46.4
== END 2023-07-21 10:45 | disposition home or self-care (01) ==
PROVIDERS: PCP Internal Medicine; Visit Provider Hospitalist
DX: J41.8 Mixed simple and mucopurulent chronic bronchitis (principal); J96.11 Chronic respiratory failure with hypoxia; J96.12 Chronic respiratory failure with hypercapnia; Z86.711 Personal history of pulmonary embolism; G47.33 Obstructive sleep apnea (adult) (pediatric); R91.8 Other nonspecific abnormal finding of lung field
CPT/HCPCS: 99204

== ENCOUNTER → 2023-07-21 09:45 | Outpatient (BNVA) | payer BC, SELFPAY | PROVIDERS: PCP Internal Medicine; Visit Provider Hospitalist ==

== ENCOUNTER 2023-07-31 13:42 | Outpatient (AMB) | payer BC, SELFPAY ==
--- NOTE | 2023-07-31 14:00 | A.OFFVIS_ITS ---
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 Mender Required: No Accompanied by: Self / Same As Patient Allergies No Known Allergies Allergy (Verified 07/31/23 14:02) Medication List - Last Reconciled 07/31/23 by Josesito Thorne MD acetaminophen 1,000 mg PO Q6H PRN albuterol sulfate 90 mcg/actuation 2 puffs inhalation QID PRN albuterol sulfate 2.5 mg inhalation Q4H PRN amiodarone 200 mg PO BEDTIME apixaban (Eliquis) 5 mg PO BID azelastine 2 sprays intranasal DAILY PRN budesonide-formoterol 160-4.5 mcg/actuation (Symbicort) 2 puffs inhalation BID cholecalciferol (vitamin D3) 25 mcg PO BEDTIME compr.stocking,knee,long,large As directed CPAP (CPAP Machine/Device) As directed diltiazem HCl ER 240 mg PO BEDTIME furosemide 40 mg PO QAM PRN methimazole 2.5 mg PO BEDTIME metoprolol succinate ER 100 mg PO BEDTIME multivitamin 1 tab PO BEDTIME nebulizers As directed omega 6-rzp-pxs-fish oil 300-1,000 mg (Fish Oil) 1 cap PO BEDTIME omeprazole magnesium 20 mg PO DAILY@0630 Oxygen Home Use As directed prednisone See Taper mg PO DIRECTED roflumilast 500 mcg PO BEDTIME thiamine HCl (vitamin B1) 500 mg PO BEDTIME tiotropium bromide 2.5 mcg/actuation (Spiriva Respimat) 1 puff inhalation BID vitamin E 268 mg PO BEDTIME HPI HPI Comments History of Present Illness Details Mario is here for consultation regarding atrial fibrillation/flutter. He states he has moved to this area and previously lived in [facility]. Apparently around 10 years ago he was playing golf at that time told his cough muscle. That led to DVT and in that setting also developed pulmonary embolism. Consequently, developed atrial flutter. Apparently a underwent cardioversion couple of times last at least 8 years ago. Then according to him, he underwent 2 ablations but not clear if it is flutter ablation or pulmonary vein isolation for atrial fibrillation. Last time around [id number]. Then according to patient 1 further episode of atrial fibrillation in 2020 in the setting of pneumonia. Patient states he has been on amiodarone for many many years. Unclear reasoning considering his relatively young age. Patient states he otherwise feels okay. He has COPD as well as obstructive sleep apnea. No documented coronary disease but per patient. No anginal-type symptoms. As he has moved to this area he would like new consumer insights specialist. [facility] Medical History (Updated 07/31/23 @ 14:18 by Josesito Thorne MD) COPD (chronic obstructive pulmonary disease) Lung mass PAF (paroxysmal atrial fibrillation) Paroxysmal atrial flutter Surgical History H/O cardiac radiofrequency ablation Family History Father Bone cancer Mother COPD (chronic obstructive pulmonary disease) Social History Household Members: Spouse Household Members Other:: Housing: House Do you presently have visiting nurse or other home services: No Unable to assess alcohol history related to: Unknown Alcohol intake: current Alcohol intake frequency: a few times a month Patient Tobacco Use Status: Former Tobacco user Years Smoked: 30 years e-Cigarette/Vaping Use: Never Used Second Hand Smoke Exposure: No Advance Directives Date on File: 07/02/22 service: No Current occupational status: employed Cognitive needs: No Hearing needs: No Vision needs: Yes Review of Systems Const Denies chills, Denies daytime sleepiness, Denies fatigue, Denies fever(s), Josh es frequent falls, Denies night sweats, Denies snoring, Denies weakness, Denies weight gain and Denies weight loss Eyes Denies loss of vision ENT Denies dizziness and Denies hearing loss Card Denies chest pain, Denies chest pain with activity, Denies syncope, Denies rapid heart rate, Denies edema, Denies claudication, Denies leg edema, Denies lightheadedness, Denies palpitations, Denies dyspnea, Denies dyspnea on exertion and Denies orthopnea Resp Denies cough, Denies excessive phlegm production, Denies dyspnea, Denies dyspnea on exertion, Denies snoring and Denies wheezing GI Denies abdominal pain, Denies hematochezia, Denies change in bowel habits, Denies change in stool character, Denies heartburn, Denies nausea and Denies vomiting Denies hematuria, Denies dysuria and Denies urinary frequency Musc Denies arthralgias, Denies muscle weakness, Denies numbness and Denies tingling Skin/Breast Denies nail changes and Denies rash Neuro Denies Abnormal speech present, Denies dizziness, Denies syncope, Denies frequent falls, Denies loss of vision, Denies memory loss, Denies numbness, Denies tingling and Denies weakness Psych Denies depression and Denies memory loss Endo Denies fatigue and Denies palpitations Aller/Immun Denies wheezing Physical Exam Vital Signs: Last Vital Signs Pulse 76 07/31/23 14:02 BP 120/66 07/31/23 14:02 BMI result Body Mass Index 46.4 Const General: comfortable and no acute distress Orientation/consciousness: patient oriented x3 HEENT Other: Unremarkable Head: Yes normal to inspection Neck Neck: Yes normal visual inspection Chest Chest palpation & inspection: normal inspection of the chest Resp Auscultation: clear to auscultation bilaterally Cardio Palpation: normal PMI Heart sounds: S1 normal heart sound present, S2 normal heart sound present, no gallops, no murmurs and no rubs GI Palpation (GI): Soft to palpation Back/Spine/Pelvis Other: unremarkable Skin General skin exam: no rashes or lesions noted Neuro General: patient oriented x3 Speech: No Abnormal speech present Extrem General: Yes normal to inspection Psych Mental Status: mental status grossly normal Office Procedures EKG Details: EKG with sinus rhythm at 76/Min; leftward axis; no significant ST-T changes; [place]. [address]-[id number], Complete Assessment & Plan Assessment & Plan (1) PAF (paroxysmal atrial fibrillation): Code(s): I48.0 - Paroxysmal atrial fibrillation (2) Paroxysmal atrial flutter: Code(s): I48.92 - Unspecified atrial flutter Plan Long history of atrial flutter +/- fibrillation with cardioversion x2 and ablation x2, but full details not clear. For some reason, his prior consumer insights specialist has still kept him on Amiodarone. Will need to obtain records and review indication for the same. At his age, would rather not keep on amiodarone especially as he also has thyroid dysfunction. We discussed about this today. Other option would be Multaq or sotalol or even flecainide, or just keep off antiarrhythmic therapy. He also seems to be on metoprolol ER 100 mg as well as diltiazem ER 240 mg daily. In the recent echocardiogram, LVEF 65-70%. Moderate left ventricular hypertrophy. Mild left atrial dilatation. In the Holter monitor, underlying rhythm is sinus with an average rate of 68/Min. Occasional ectopy but otherwise unremarkable. Once records reviewed, we will see him back in follow-up. At that time, further decisions for antiarrhythmic therapy to be made. Continue anticoagulation without changes. Coding Level of Care Code New Pt Level 4 (96510) Diagnoses PAF (paroxysmal atrial fibrillation) I48.0 Paroxysmal atrial flutter I48.92 CPT Codes EKG - CPT: 85576-[id number], Complete ([id number])
[2023-07-31 14:02] VITALS: BP 120/66; PULSE 76; BMI 46.4
== END 2023-07-31 14:30 | disposition home or self-care (01) ==
PROVIDERS: PCP Internal Medicine; Referring Provider Internal Medicine; Visit Provider Internal Medicine
DX: I48.0 Paroxysmal atrial fibrillation (principal); I48.92 Unspecified atrial flutter
CPT/HCPCS: 93010; 99204

== ENCOUNTER → 2023-07-31 13:42 | Outpatient (BNVA) | payer BC, SELFPAY | PROVIDERS: PCP Internal Medicine; Referring Provider Internal Medicine; Visit Provider Internal Medicine | DX: I44.4 Left anterior fascicular block (principal); I48.0 Paroxysmal atrial fibrillation; I48.92 Unspecified atrial flutter; J44.9 Chronic obstructive pulmonary disease, unspecified; G47.33 Obstructive sleep apnea (adult) (pediatric); Z99.81 Dependence on supplemental oxygen; Z99.89 Dependence on other enabling machines and devices; Z79.52 Long term (current) use of systemic steroids; Z79.899 Other long term (current) drug therapy; Z98.890 Other specified postprocedural states | CPT/HCPCS: 93005 ==

== ENCOUNTER 2023-08-19 08:29 | Outpatient (REF) | payer BC, SELFPAY ==
--- NOTE | ~2023-08-19 | XR_ITS ---
EXAMINATION: XR CHEST CLINICAL INFORMATION: Mixed simple and chronic bronchitis COMPARISON: 07/08/2023 TECHNIQUE: 4 views of the chest were obtained. FINDINGS: There is no gross pneumothorax. Lung volumes are low. Stable cardiomediastinal silhouette. Stable cardiomediastinal silhouette. Lung volumes are low. Persistent blunting of the costophrenic angles may represent mild pleural thickening or pleural fluid. Bilateral prominent perihilar interstitial and bronchovascular pattern better characterized on CT scan of 05/20/2023. XR/XR chest 2V IMPRESSION: Persistent blunting of the costophrenic angles may represent mild pleural thickening or pleural fluid. Bilateral prominent perihilar interstitial and bronchovascular pattern better characterized on CT scan of 05/20/2023.
== END 2023-08-19 08:30 | disposition home or self-care (01) ==
LOC: HO.XRAY 08:29
PROVIDERS: Visit Provider Hospitalist
DX: J41.8 Mixed simple and mucopurulent chronic bronchitis (principal)
CPT/HCPCS: 71046

== ENCOUNTER 2023-08-19 13:47 | Outpatient (REF) | payer BC, SELFPAY ==
[2023-08-19 16:38] LABS: B Type Natriuretic Peptide 33 pg/mL (<100)
[2023-08-19 16:47] LABS: Anion Gap 16 (12-20); Blood Urea Nitrogen 20 mg/dL (9-16); Calcium 9.1 mg/dL (8.4-10.2); Carbon Dioxide 38 mmol/L (22-29); Chloride 93 mmol/L (96-108); Estimated Glomerular Filt Rate > 60; Glucose Random 81 mg/dL (60-115); Potassium 3.9 mmol/L (3.3-5.1); Sodium 143 mmol/L (135-145)
== END 2023-08-19 13:48 | disposition home or self-care (01) ==
LOC: HO.HMGCLDS 13:47
PROVIDERS: PCP Internal Medicine; Visit Provider Nurse Practitioner
DX: R06.02 Shortness of breath (principal)
CPT/HCPCS: 36415; 80048; 83880

== ENCOUNTER 2023-08-26 07:32 | Inpatient (IN) | payer BC, SELFPAY ==
[2023-08-26] VITALS (12 sets, daily range): BP systolic 141–164; BP diastolic 63–86; PULSE 62–95; RESP 11–24; TEMP 36.8–37.3; O2SAT 88–93; BMI 47.3
--- NOTE | ~2023-08-26 | XR_ITS ---
EXAMINATION: XR CHEST CLINICAL INFORMATION: Short of breath COMPARISON: Chest 08/19/2023 TECHNIQUE: Frontal view of the chest was obtained. FINDINGS: The cardiomediastinal silhouette is stable. Pulmonary veins may be mildly prominent in the nondependent portion, raising suspicion for pulmonary vascular redistribution. Small bibasilar patchy linear densities, unchanged, are felt more likely to represent atelectasis rather than focal infiltrates. Bilateral blunting of the costophrenic angles consistent with small pleural effusions. No pneumothorax. No acute osseous abnormality. XR/XR chest 1V IMPRESSION: No significant interval change.
--- NOTE | 2023-08-26 07:40 | ECG_ITS ---
Test Reason : diff breathing Blood Pressure : / mmHG Vent. Rate : 064 BPM Atrial Rate : 064 BPM P-R Int : 178 ms QRS Dur : 106 ms QT Int : 404 ms P-R-T Axes : -15 -31 042 degrees QTc Int : 416 ms Normal sinus rhythm Left axis deviation Low voltage QRS Possible Inferior infarct (cited on or before 01-JUL-2022) Abnormal ECG When compared with ECG of 08-JUL-2023 08:35, Premature atrial complexes are no longer Present Referred By: Brendan Zafar Electronically Signed By:ROSSY COTA
--- NOTE | 2023-08-26 07:40 | ED.SOB ---
HPI - SOB/Dyspnea General Chief Complaint: Dyspnea Stated Complaint: Diff breathing Time Seen by Provider: 08/26/23 07:40 Source: patient Mode of arrival: ambulatory History of Present Illness HPI Narrative: Respiratory team brought patient down from pulmonary and gave the history. Patient has noticed that he has had more swelling and a 15lbs weight gain. MD elicited complaint: shortness of breath Pertinent past history: COPD and congestive heart failure Related Data Home Medications Medication Instructions Recorded Confirmed albuterol sulfate 2.5 mg/3 mL 2.5 mg inhalation Q4H PRN Wheezing 07/01/22 07/31/23 (0.083 %) solution for nebulization albuterol sulfate 90 mcg/actuation 2 puff inhalation QID PRN Wheezing 07/01/22 07/31/23 aerosol inhaler amiodarone 200 mg tablet 200 mg PO BEDTIME 07/01/22 07/31/23 cholecalciferol (vitamin D3) 25 25 mcg PO BEDTIME 07/01/22 07/31/23 mcg (1,000 unit) tablet diltiazem HCl 240 mg capsule,24 240 mg PO BEDTIME 07/01/22 07/31/23 hr,extended release multivitamin 1 tab PO BEDTIME 07/01/22 07/31/23 tiotropium bromide 2.5 1 puff inhalation BID 07/01/22 07/31/23 mcg/actuation mist for inhalation (Spiriva Respimat) methimazole 5 mg tablet 2.5 mg PO BEDTIME 04/24/23 07/31/23 acetaminophen 500 mg tablet 1,000 mg PO Q6H PRN Pain 07/08/23 07/31/23 azelastine 137 mcg (0.1 %) nasal 2 spray intranasal DAILY PRN 07/08/23 07/31/23 spray aerosol Allergy Symptoms budesonide-formoterol HFA 160 2 puff inhalation BID 07/08/23 07/31/23 mcg-4.5 mcg/actuation aerosol inhaler (Symbicort) metoprolol succinate 100 mg 100 mg PO BEDTIME 07/08/23 07/31/23 tablet,extended release 24 hr omega 7-mdo-uho-fish oil 300 1 cap PO BEDTIME 07/08/23 07/31/23 mg-1,000 mg capsule (Fish Oil) omeprazole magnesium 20 mg 20 mg PO DAILY@0630 07/08/23 07/31/23 capsule,delayed release roflumilast 500 mcg tablet 500 mcg PO BEDTIME 07/08/23 07/31/23 thiamine HCl (vitamin B1) 500 mg 500 mg PO BEDTIME 07/08/23 07/31/23 tablet vitamin E 268 mg (400 unit) capsule 268 mg PO BEDTIME 07/08/23 07/31/23 CPAP (CPAP Machine/Device) 07/21/23 07/31/23 Oxygen Home Use 07/21/23 07/31/23 nebulizers 07/21/23 07/31/23 Previous Rx's Medication Instructions Recorded compr.stocking,knee,long,large #12 ea 04/24/23 furosemide 40 mg tablet 40 mg PO QAM PRN edema #30 tabs 07/11/23 prednisone 10 mg tablet See Taper PO DIRECTED #30 tabs 07/11/23 Eliquis 5 mg tablet (apixaban) 5 mg PO BID #180 tabs 08/11/23 Allergies Allergy/AdvReac Type Severity Reaction Status Date / Time No Known Allergies Allergy Verified 07/31/23 14:02 Review of Systems Review of Systems: Yes all other systems are reviewed and are negative Neurologic: Denies Sensory deficit (Neuro) FORMERLY [facility], [facility] Past Medical History Medical History Paroxysmal atrial flutter PAF (paroxysmal atrial fibrillation) Lung mass COPD (chronic obstructive pulmonary disease) Surgical History H/O cardiac radiofrequency ablation Family History Family History Father Bone cancer Mother COPD (chronic obstructive pulmonary disease) Social History Social History Household Members: Spouse Household Members Other:: Housing: House Do you presently have visiting nurse or other home services: No Unable to assess alcohol history related to: Unknown Alcohol intake: current Alcohol intake frequency: holidays/special occasions only Patient Tobacco Use Status: Former Tobacco user Years Smoked: 30 years Smoked in Last 30 Days: No e-Cigarette/Vaping Use: Never Used Second Hand Smoke Exposure: No Use of substances other than those prescribed or required for medical reasons: No Advance Directives: Yes Advance Directives Information Provided: Yes Advance Directives on File: Yes Advance Directives Date on File: 07/14/23 service: No Current occupational status: employed Cognitive needs: No Hearing needs: No Vision needs: Yes Physical Exam Vital Signs: Vital Signs: Last Vital Signs Temp 99.1 F 08/26/23 09:27 Pulse 70 08/26/23 11:16 Resp 17 08/26/23 11:16 BP 143/73 H 08/26/23 10:46 Pulse Ox 90 L 08/26/23 10:46 O2 Del Method Nasal Cannula 08/26/23 10:46 O2 Flow Rate 4.5 08/26/23 10:46 Oxygen Flow Rate 4 08/26/23 07:37 BMI result Body Mass Index 47.3 Const: Other: morbidly obese, short of breath Orientation/consciousness: oriented to person and patient oriented x3 Limitations: no limitations HEENT: Head: Yes normal to inspection Ears: external ears normal General nose exam: Normal external nose present Mouth: Normal oral and palatal mucosa present and oropharynx normal Throat: Yes posterior oropharynx normal Eyes: General: appearance normal, both eyes and all related structures Neck: Other: supple Neck: Yes normal visual inspection Chest: Chest palpation & inspection: normal inspection of the chest Resp: Other: bilateral wheezing Cardio: Jugular venous distension: no JVD Rate: regular rate Rhythm: regular rhythm Heart sounds: S1 normal heart sound present and S2 normal heart sound present GI: Inspection: Yes normal to inspection Palpation (GI): Soft to palpation, nontender and No hepatosplenomegaly present Auscultation: normal bowel sounds : General: Yes no CVA tenderness Back/Spine/Pelvis: Back: no CVA tenderness Skin: General skin exam: no rashes or lesions noted Neuro: General: oriented to person and patient oriented x3 Cranial nerves: Yes CN's II-XII intact bilaterally Motor exam (neuro): 5/5 motor strength present throughout Sensory Exam: No Sensory deficit (Neuro) Extrem: Other: no edema General: Yes normal to inspection Psych: Appearance: grossly normal Course Reevaluation(s) Reevaluation #1: physician observation started at 10:20am to see if patients COPD exacerbation improves. Currently 90% on 4L, distant wheezing Time: 10:28 Reevaluation #2: end of physician observation: patient with ambulatory pulse ox of 70 with any exertion and severe shortness of breath. will admit. no evidence of infection, no elevated WBC, no pneumonia on xray Time: 12:21 Reevaluation #3: I spent 40 minutes of critical care, with interventions, assessments, speaking to patient, consultants, and family. Time: 12:27 Medications Administered Discontinued Medications Generic Name Dose Route Start Last Admin Trade Name Freq PRN Reason Stop Dose Admin Acetaminophen 975 mg 08/26/23 08:49 08/26/23 09:48 Acetaminophen 325 Mg Tablet PO 08/26/23 08:50 975 mg ONCE ONE Administration Albuterol Sulfate 2.5 mg/ 5 mg 08/26/23 10:57 08/26/23 11:15 Albuterol Sulfate 2.5 mg INHALE 08/26/23 10:58 5 mg ONCE ONE Administration Albuterol Sulfate 2.5 mg/ 0 mg 08/26/23 09:22 08/26/23 09:26 Albuterol/Ipratropium 3 ml INHALE 08/26/23 09:23 1 dose ONCE ONE Administration Prednisone 60 mg 08/26/23 10:28 08/26/23 10:44 Prednisone 20 Mg Tablet PO 08/26/23 10:29 60 mg ONCE ONE Administration Medical Decision Making Differential Diagnosis Differential Diagnoses: The differential diagnosis associated with the presentation includes (congestive heart failure, COPD, pneumonia, upper respiratory infection) Admission/Observation Consideration of admission/observation: Escalation of care including admission/observation considered (upon arrival patient was considered for admission) Consult Healthcare Provider Management of the patient was discussed with: Hospitalist Lab Data MDM Lab Attestation statement: I reviewed the patient's lab results. (no elevated WBC, chronic bicarb elevation, normal troponin all seen) 08/26/23 07:59 08/26/23 07:59 Labs: Lab Results 08/26/23 Range/Units 07:59 WBC 9.7 (4.8-10.8) X10*3/uL RBC 5.10 (4.60-5.80) X10*6/uL Hgb 14.6 (14.0-18.0) g/dl Hct 48.6 (42.0-52.0) % MCV 95.3 (80.0-98.0) fL MCH 28.6 (27.0-33.0) pg MCHC 30.0 L (31.0-36.0) g/dl RDW 17.0 H (11.0-16.0) % Plt Count 230 (160-400) X10*3/uL MPV 10.5 (9.4-12.4) fL Immature Gran % (Auto) 0.4 (0.0-0.4) % Neut % (Auto) 79.1 H (45-73) % Lymph % (Auto) 9.9 L (20-40) % [place] % (Auto) 8.1 (2-11) % Eos % (Auto) 2.0 (0-4) % Baso % (Auto) 0.5 (0-2) % Lymph # (Auto) 1.0 L (1.2-4.9) X10*3/uL [place] # (Auto) 0.8 (0.1-1.2) X10*3/uL Eos # (Auto) 0.2 (0.0-0.4) X10*3/uL Baso # (Auto) 0.1 (0.0-0.2) X10*3/uL Abs Immat Gran (auto) 0.04 H (0.00-0.03) X10*3/uL Absolute Neuts (auto) 7.7 (2.0-8.3) x10*3/uL Absolute Nucleated RBC 0.000 (0.0-0.012) X10*3/uL Nucleated RBC % (auto) 0.0 (0.0-0.2) /100WBC Sodium 144 (135-145) mmol/L Potassium 4.5 (3.3-5.1) mmol/L Chloride 99 (96-108) mmol/L Carbon Dioxide 33 H (22-29) mmol/L Anion Gap 17 (12-20) BUN 18 H (9-16) mg/dL Creatinine 0.68 (0.5-1.4) mg/dL Estim Creat Clear Calc 172.1 Estimated GFR > 60 Random Glucose 101 (60-115) mg/dL Calcium 9.1 (8.4-10.2) mg/dL Total Bilirubin 0.6 (0.0-1.0) mg/dL AST 23 (5-37) U/L ALT 29 (0-40) U/L Alkaline Phosphatase 65 (39-117) U/L Troponin I High Sens 7.8 (<3.5-35.0) ng/L B-Natriuretic Peptide 58 (<100) pg/mL Total Protein 6.7 (6.5-8.0) g/dL Albumin 3.8 (3.5-5.0) g/dL Independent Interpretation I performed an independent interpretation of an: EKG (sinus 64, old inferior wall, no st or twave changes) and Plain X-Ray (chronic changes no infiltrate) Independent Historian Clinical information obtained from an independent historian. History obtained from or confirmed by: Other (respiratory therapist who brought patient down from pulmonary rehab) External Record Review External record reviewed: Office record Tests considered The following testing was considered but not selected: CT of chest was considered but patient has a long history of the above problem Chronic Conditions Patient?s care impacted by: Other (COPD) Discharge Plan Discharge Clinical Impression: COPD (chronic obstructive pulmonary disease), Chronic respiratory failure Patient Disposition: Admitted As Inpatient
[2023-08-26 08:05] LABS: MANUAL DIFF FLAG NO
[2023-08-26 08:11] LABS: Basophils Absolute Auto 0.1 X10*3/uL (0.0-0.2); Basophils Percent Auto 0.5 % (0-2); Eosinophils Absolute Auto 0.2 X10*3/uL (0.0-0.4); Hematocrit 48.6 % (42.0-52.0); Hemoglobin 14.6 g/dl (14.0-18.0); Imm Gran Abs Auto 0.04 X10*3/uL (0.00-0.03); Imm Gran Pct Auto 0.4 % (0.0-0.4); Lymphocytes Percent Auto 9.9 % (20-40); Mean Corpuscular Hemoglobin 28.6 pg (27.0-33.0); Mean Corpuscular Volume 95.3 fL (80.0-98.0); Mean Platelet Volume 10.5 fL (9.4-12.4); Monocytes Absolute Auto 0.8 X10*3/uL (0.1-1.2); Monocytes Percent Auto 8.1 % (2-11); Neutrophils Absolute Auto 7.7 x10*3/uL (2.0-8.3); Neutrophils Percent Auto 79.1 % (45-73); Platelet Count 230 X10*3/uL (160-400); White Blood Count 9.7 X10*3/uL (4.8-10.8)
[2023-08-26 08:19] LABS: Alanine Aminotransferase 29 U/L (0-40); Albumin Level 3.8 g/dL (3.5-5.0); Alkaline Phosphatase 65 U/L (39-117); Anion Gap 17 (12-20); Aspartate Amino Transferase 23 U/L (5-37); Bilirubin Total 0.6 mg/dL (0.0-1.0); Blood Urea Nitrogen 18 mg/dL (9-16); Calcium 9.1 mg/dL (8.4-10.2); Carbon Dioxide 33 mmol/L (22-29); Chloride 99 mmol/L (96-108); Creatinine Clr Calc Pharmacy 172.1; Estimated Glomerular Filt Rate > 60; Glucose Random 101 mg/dL (60-115); Potassium 4.5 mmol/L (3.3-5.1); Sodium 144 mmol/L (135-145); Total Protein 6.7 g/dL (6.5-8.0)
[2023-08-26 08:25] LABS: B Type Natriuretic Peptide 58 pg/mL (<100)
[2023-08-26 08:27] LABS: Troponin-I High Sensitivity 7.8 ng/L (<3.5-35.0)
[2023-08-26] MEDS: Albuterol Sulfate 2.5 MG, Albuterol/Iprat 2.5/0.5MG 3 ML 3 ML INHALE (09:26)
[2023-08-26] MEDS: Acetaminophen 325 MG TABLET 975 MG PO (09:48)
[2023-08-26] MEDS: predniSONE 20 MG TABLET 60 MG PO (10:44)
[2023-08-26] MEDS: Albuterol Sulfate 2.5 MG, Albuterol Sulfate (0.083%) 2.5 MG 5 MG INHALE (11:15)
--- NOTE | 2023-08-26 12:12 | MHC.EDTECH ---
pt walked with 02 sat probe and 4lpm nasal cannula. pt started standing at 92% 02 sat, when walking pt dropped to 79%. RN and aware
--- NOTE | 2023-08-26 12:54 | P.HPHOSP_ITS ---
History of Present Illness Date of Service: 08/26/23 Attending physician on admission: Gautam [facility] Chief Complaint: sob 62-year-old male with history of COPD with chronic hypoxemic respiratory failure on supplemental O2 p.r.n., paroxysmal atrial fibrillation/flutter anticoagulated with Eliquis, hyperthyroidism, obstructive sleep apnea, who is morbidly obese with BMI greater than 47 presents the ED earlier today for evaluation of dyspnea. He was recently discharged on 07/11 for COPD exacerbation with acute on chronic respiratory failure and acute on chronic diastolic heart failure. He was discharged on supplemental O2 p.r.n. and p.o. Lasix which he has been compliant with. He states after discharge, had been doing well but for about 2 weeks has needed to use supplemental O2 intermittently. Has been attending pulmonary rehab. Over the last 3 days has had worsening shortness of breath both at rest and with exertion and requiring near continuous use of 2.5 L supplemental O2 with concentrator. He reports subjective fevers but has been afebrile in the ED. Has had an intermittent productive cough which is new from baseline and has been sneezing with headache. Has orthopnea at baseline and sleeps with 2 pillows. Denies any known sick contacts. No sore throat, sinus pressure, abdominal pain, nausea, vomiting, diarrhea, palpitations, lightheadedness, lower extremity edema, or chest pain. He feels he has gained about 15 lb since discharge. On review of chart has gained about 12 pounds since PCP discharge follow up on 07/16. On arrival, patient initially tachypneic to 24 respirations per minute noted to be desaturating to low 70s with exertion. He was placed on 3-4 L supplemental O2 and is maintaining oximetry 90% at rest. There is no leukocytosis. Renal function and electrolyte levels normal. VBG pending. Troponin 7.8. BNP 58. Respiratory pathogen panel pending. Chest x-ray negative for any acute cardiopulmonary disease. Shows stable small patchy linear densities likely atelectasis that are unchanged and unchanged bilateral blunting of the costophrenic angles. EKG shows NSR, rate 64 without any ANIKET or depressions. In the ED, given albuterol nebulizer, and DuoNeb with limited improvement in symptoms. Review of Systems 2 Review of Systems: General: No fevers, malaise, unintentional weight loss. +weight gain HEENT: No blurred vision, diplopia. No sore throat, nasal congestion, rhinorrhea, sinus pain, ear pain Cardiovascular: No chest pain, palpitations, or leg edema Respiratory: +shortness of breath at rest, VILLELA, wheezing, cough GI: No abdominal pain, nausea, vomiting, diarrhea, constipation, melena, hematochezia : No dysuria, hematuria, increased urinary frequency, decreased urinary output MSK: No myalgia, back pain Neuro: No headaches, weakness, paresthesias Skin: No rashes or lesions [facility] Medical History Chronic diastolic heart failure Acute on chronic diastolic (congestive) heart failure Acute exacerbation of chronic obstructive airways disease Hyperthyroidism Venous insufficiency of both lower extremities Chronic respiratory failure Hx pulmonary embolism Paroxysmal atrial flutter PAF (paroxysmal atrial fibrillation) Lung mass COPD (chronic obstructive pulmonary disease) Family History Father Bone cancer Mother COPD (chronic obstructive pulmonary disease) Surgical History H/O cardiac radiofrequency ablation Social History Household Members: Spouse Household Members Other:: Housing: House Do you presently have visiting nurse or other home services: No Unable to assess alcohol history related to: Unknown Alcohol intake: current Alcohol intake frequency: holidays/special occasions only Patient Tobacco Use Status: Former Tobacco user Years Smoked: 30 years Smoked in Last 30 Days: No e-Cigarette/Vaping Use: Never Used Second Hand Smoke Exposure: No Use of substances other than those prescribed or required for medical reasons: No Currently Displaying Signs/Symptoms of Drug Intoxication Withdrawal: No Have you been hit, kicked, punched, or otherwise hurt by someone within the past year? If so, by whom?: No Do you feel safe in your current relationship?: Yes Is there a partner from a previous relationship who is making you feel unsafe now?: No Are you made to feel afraid or neglected: No Advance Directives: Yes Advance Directives Information Provided: Yes Advance Directives on File: Yes Advance Directives Date on File: 08/14/23 Do you have thoughts of harming others: None Do you have a plan to hurt others: No Plan Recently lost weight without trying: No Nutrition Risks: No Nutritional Risk service: No Current occupational status: employed Cognitive needs: No Hearing needs: No Vision needs: Yes Meds Allergies Allergy/AdvReac Type Severity Reaction Status Date / Time No Known Allergies Allergy Verified 07/31/23 14:02 Active Medications: Current Medications Acetaminophen (Acetaminophen 325 Mg Tablet) 650 mg PO Q6H PRN PRN Reason: Pain, Mild (Pain Scale 1-3) Albuterol Sulfate (Albuterol Sulfate (0.083%) 2.5 Mg/3 Ml Vial.Neb) 2.5 mg INHALE Q2H PRN PRN Reason: Shortness of Breath/Wheezing Albuterol/Ipratropium (Albuterol/Iprat 2.5/0.5mg 3 Ml Ampul.Neb) 3 ml INHALE RQ4H WHILE AWAKE JIMMY Azithromycin (Azithromycin 500 Mg Tablet) 500 mg PO Q24H JIMMY Docusate Sodium (Docusate Sodium 100 Mg Capsule) 100 mg PO DAILY PRN PRN Reason: Constipation Methylprednisolone Sodium Succinate (Methylprednisolone Sod Succ 40 Mg/Ml Vial) 40 mg IVPUSH Q12H JIMMY Ondansetron HCl (Ondansetron Hcl 4 Mg/2 Ml Vial) 4 mg IVPUSH Q8H PRN PRN Reason: Nausea and Vomiting Sodium Chloride (0.9 % Sodium Chloride Flush 3 Ml Syringe) 3 ml IVFLUSH QSHIFT [facility] Home Medications Medication Instructions Recorded Confirmed Last Taken Type albuterol sulfate 2.5 mg/3 mL 2.5 mg inhalation Q4H PRN Wheezing 07/01/22 08/26/23 Unknown History (0.083 %) solution for nebulization albuterol sulfate 90 mcg/actuation 2 puff inhalation QID PRN Wheezing 07/01/22 08/26/23 07/07/23 History aerosol inhaler amiodarone 200 mg tablet 200 mg PO BEDTIME 07/01/22 08/26/23 08/25/23 History cholecalciferol (vitamin D3) 25 25 mcg PO BEDTIME 07/01/22 08/26/23 08/25/23 History mcg (1,000 unit) tablet diltiazem HCl 240 mg capsule,24 240 mg PO BEDTIME 07/01/22 08/26/2308/25/23 History hr,extended release multivitamin 1 tab PO BEDTIME 07/01/22 08/26/23 08/25/23 History tiotropium bromide 2.5 1 puff inhalation BID 07/01/22 08/26/23 08/25/23 History mcg/actuation mist for inhalation (Spiriva Respimat) methimazole 5 mg tablet 2.5 mg PO BEDTIME 04/24/23 08/26/23 08/25/23 History acetaminophen 500 mg tablet 1,000 mg PO Q6H PRN Pain 07/08/23 08/26/23 07/08/23 History azelastine 137 mcg (0.1 %) nasal 2 spray intranasal DAILY PRN 07/08/23 08/26/23 Unknown History spray aerosol Allergy Symptoms budesonide-formoterol HFA 160 2 puff inhalation BID 07/08/23 08/26/23 08/25/23 History mcg-4.5 mcg/actuation aerosol inhaler (Symbicort) metoprolol succinate 100 mg 100 mg PO BEDTIME 07/08/23 08/26/23 08/25/23 History tablet,extended release 24 hr omega 8-rdk-crn-fish oil 300 1 cap PO BEDTIME 07/08/23 08/26/23 08/25/23 History mg-1,000 mg capsule (Fish Oil) omeprazole magnesium 20 mg 20 mg PO DAILY@0630 07/08/23 08/26/23 08/25/23 History capsule,delayed release roflumilast 500 mcg tablet 500 mcg PO BEDTIME 07/08/23 08/26/23 08/25/23 History thiamine HCl (vitamin B1) 500 mg 500 mg PO BEDTIME 07/08/23 08/26/23 08/25/23 History tablet vitamin E 268 mg (400 unit) capsule 268 mg PO BEDTIME 07/08/23 08/26/23 08/25/23 History CPAP (CPAP Machine/Device) 07/21/23 07/31/23 Unknown History Oxygen Home Use 07/21/23 07/31/23 Unknown History nebulizers 07/21/23 07/31/23 Unknown History apixaban 5 mg tablet (Eliquis) 5 mg PO BID 08/26/23 08/26/23 08/25/23 History furosemide 40 mg tablet 40 mg PO BID edema 08/26/23 08/26/23 08/25/23 History Physical Exam 2 Vital Signs and Narrative: Vital Signs: Last Vital Signs Temp 98.7 F 08/26/23 12:28 Pulse 71 08/26/23 12:28 Resp 14 08/26/23 12:28 BP 146/78 H 08/26/23 12:28 Pulse Ox 90 L 08/26/23 12:28 O2 Del Method Nasal Cannula 08/26/23 12:28 O2 Flow Rate 4 08/26/23 12:28 Oxygen Flow Rate 4 08/26/23 07:37 BMI result Body Mass Index 47.3 Constitutional - Awake and Alert, No apparent distress Eyes - PERRLA, EOMI Cardiovascular - S1S2, RRR, 1+ edema ble Respiratory - Normal lung expansion, Normal respiratory effort, No respiratory distress, expiratory wheezes bilaterally, crackles low lobes bilaterally Gastrointestinal - NT / ND; +BS; No rebound or guarding Extremities - no calf tenderness bilaterally, no swelling Skin - Warm/Dry Neurological - Alert & oriented x3 Psychological - Appropriate affect Results Labs 08/27/23 05:35 08/27/23 05:35 Labs: Laboratory Results - last 24 hr 08/26/23 07:59 MCV 95.3 MCH 28.6 MCHC 30.0 L RDW 17.0 H Plt Count 230 MPV 10.5 Immature Gran % (Auto) 0.4 Neut % (Auto) 79.1 H Lymph % (Auto) 9.9 L Forrest % (Auto) 8.1 Eos % (Auto) 2.0 Baso % (Auto) 0.5 Lymph # (Auto) 1.0 L Forrest # (Auto) 0.8 Eos # (Auto) 0.2 Baso # (Auto) 0.1 Abs Immat Gran (auto) 0.04 H Absolute Neuts (auto) 7.7 Absolute Nucleated RBC 0.000 Nucleated RBC % (auto) 0.0 Anion Gap 17 Estim Creat Clear Calc 172.1 Estimated GFR > 60 Random Glucose 101 Calcium 9.1 Total Bilirubin 0.6 AST 23 ALT 29 Alkaline Phosphatase 65 B-Natriuretic Peptide 58 Total Protein 6.7 Albumin 3.8 Imaging Radiologist's Impressions: Impressions Chest X-Ray 08/26/23 08:12 IMPRESSION: No significant interval change. Assessment and Plan (1) Acute on chronic diastolic (congestive) heart failure: Status: Acute (2) Acute respiratory failure with hypoxia and hypercapnia: Status: Resolved (3) Acute exacerbation of chronic obstructive airways disease: Status: Acute Plan 62-year-old male with history of COPD with chronic hypoxemic respiratory failure on supplemental O2 p.r.n., paroxysmal atrial fibrillation/flutter anticoagulated with Eliquis, hyperthyroidism, obstructive sleep apnea, who is morbidly obese with BMI greater than 47 admitted for acute on chronic hypoxemic hypercapnic respiratory failure secondary to COPD exacerbation and acute congestive heart failure exacerbation. # acute on chronic hypoxemic hypercapnic respiratory failure -due to COPD exacerbation and CHF exacerbation -VBG reassuring, pH normal. PCO2 around baseline at 74, no lethargy -Continue supplemental O2 prn to maintain oximetry 88-90% # acute COPD exacerbation -respiratory pathogen panel pending -CXR negative for any acute infectious process -p.o. azithromycin 500 mg x 3 days due to productive cough (initiated 08/26) -40 mg IV methylprednisolone b.i.d. -DuoNebs q.4h while awake -albuterol q.2h p.r.n. -continue maintenance medications # acute on chronic diastolic heart failure exacerbation -BNP normal, chest x-ray showing stable slight blunting of the bilateral costophrenic angles. Does report chronic orthopnea with about 12-15 lb weight gain over the last 6 weeks -last echo 07/2023 showing normal LV systolic function with EF 65-70% -give single dose IV Lasix 40 mg, follow clinically, otherwise continue po lasix -cardiac diet -strict I&O -daily weights # paroxysmal atrial fibrillation/flutter-rate controlled -continue Eliquis -continue amiodarone, metoprolol, diltiazem # hyperthyroidism -continue methimazole #History PE -continue eliquis # obstructive sleep apnea -CPAP at bedtime # morbid obesity -weight loss efforts encouraged DVT prophylaxis-Eliquis Full code Patient requires inpatient stay at least 2 midnights for management of acute on chronic hypoxemic hypercapnic respiratory failure secondary to COPD exacerbation and CHF exacerbation requiring IV steroids, supplemental O2, and IV diuresis as well as close monitoring to prevent decompensation. Time Spent With Patient Time: Total time managing care of this patient today ____ minutes. Quality Stroke Does the patient have a stroke diagnosis?: No VTE Prior VTE?: Yes VTE Risk Level:: Medical - moderate - high VTE Device Contraindication: Treatment Not Indicated VTE Drug Contraindication: N/A - Med Ordered
[2023-08-26 13:00] LABS: Venous Blood Gas Refer to POC result
[2023-08-26 13:01] LABS: VBG Base Excess 15.8 mmol/L; VBG HCO3 45 mmol/L (22-26); VBG pCO2 74 mmHg; VBG pH 7.39 (7.32-7.43); VBG pO2 39 mmHg
[2023-08-26] MEDS: Azithromycin 500 MG TABLET PO (13:14)
--- NOTE | 2023-08-26 13:34 | PHA.MEDREC ---
Pharmacy Consult ? Medication Reconciliation Pharmacy has completed the medication reconciliation. Patient reported medication based on list of phone. Patient reported Symbicort even though it has not been fill recently. Patient did report Spiriva BID. Marlen Norwood, PharmD
[2023-08-26] MEDS: Furosemide 40 MG/4 ML VIAL IVPUSH (13:43)
[2023-08-26] MEDS: Albuterol/Iprat 2.5/0.5MG 3 ML AMPUL.NEB INHALE ×2 (14:48→19:41)
[2023-08-26 15:19] LABS: Adenovirus PCR Not Detected (Not Detect.); Bordetella parapertussis PCR Not Detected (Not Detect.); Bordetella pertussis PCR Not Detected (Not Detect.); Chlamydia pneumoniae PCR Not Detected (Not Detect.); Coronavirus 229E PCR Not Detected (Not Detect.); Coronavirus HKU1 PCR Not Detected (Not Detect.); Coronavirus NL63 PCR Not Detected (Not Detect.); Coronavirus OC43 PCR Not Detected (Not Detect.); Human metapneumovirus PCR Not Detected (Not Detect.); Influenza A PCR Not Detected (Not Detect.); Influenza B PCR Not Detected (Not Detect.); Mycoplasma pneumoniae PCR Not Detected (Not Detect.); Parainfluenza 1 PCR Not Detected (Not Detect.); Parainfluenza 2 PCR Not Detected (Not Detect.); Parainfluenza 3 PCR Not Detected (Not Detect.); Parainfluenza 4 PCR Not Detected (Not Detect.); RSV PCR Not Detected (Not Detect.); Rhino/Enterovirus PCR Not Detected (Not Detect.)
[2023-08-26 15:25] LABS: SARS-CoV-2 PCR Not Detected (Not Detect.)
--- NOTE | 2023-08-26 16:25 | PC.NURSE ---
LATE ENTRY: pt a&o x4, pleasant, calm, and cooperative. pt currently sitting upright in chair in room, on 4.5L O2 sating between 88-90%. pt will disconnect self from O2 and take portable to ambulate to bathroom. walks with slow steady gait. 20G IV placed by ABRAHAM Gr to left hand. patent. pt medicated per jan. aware of strict output measuring. pt will sometimes desat while talking to mid 80s but able to take deep breaths to get O2 sat back up to appropriate range. advised by RIVERA Fitzgerald to d/c O2 once pt sating above 90%. call mota within pt reach. all pt needs met adele. plan of care ongoing. awaiting bed assignment. report given to ABRAHAM Raya in overflow.
[2023-08-26] MEDS: 0.9 % Sodium Chloride Flush 3 ML SYRINGE IVFLUSH ×2 (18:04→20:41)
[2023-08-26] MEDS: Thiamine HCL 100 MG TABLET 500 MG PO (20:41)
[2023-08-26] MEDS: Cholecalciferol (Vitamin D3) 25 MCG TABLET PO (20:41)
[2023-08-26] MEDS: dilTIAZem HCL CD 240 MG CAP.ER.DEG PO (20:41)
[2023-08-26] MEDS: Vitamin E (Dl,Tocopheryl Acet) 180 MG (400 UNIT) CAPSULE PO (20:41)
[2023-08-26] MEDS: methIMAzole 5 MG TABLET 2.5 MG PO (20:41)
[2023-08-26] MEDS: methylPREDNISolone Sod Succ 40 MG/ML VIAL IVPUSH (20:41)
[2023-08-26] MEDS: Apixaban 5 MG TABLET PO (20:41)
[2023-08-26] MEDS: Metoprolol Succinate ER 100 MG TAB.ER.24H PO (20:41)
[2023-08-26] MEDS: Amiodarone HCL 200 MG TABLET PO (20:41)
[2023-08-26] MEDS: Furosemide 40 MG TABLET PO (20:42)
[2023-08-26] MEDS: Roflumilast 500 MCG TABLET PO (20:42)
[2023-08-26] MEDS: Multivitamin TABLET 1 TAB PO (20:42)
[2023-08-27] VITALS (8 sets, daily range): BP systolic 136–147; BP diastolic 66–84; PULSE 60–70; RESP 17–20; TEMP 36.1–36.9; O2SAT 90–93
[2023-08-27] MEDS: Omeprazole 20 MG CAPSULE.DR PO (05:36)
[2023-08-27 06:04] LABS: MANUAL DIFF FLAG NO
[2023-08-27 06:07] LABS: Basophils Percent Auto 0.1 % (0-2); Hemoglobin 14.6 g/dl (14.0-18.0); Imm Gran Abs Auto 0.05 X10*3/uL (0.00-0.03); Imm Gran Pct Auto 0.5 % (0.0-0.4); Lymphocytes Absolute Auto 0.9 X10*3/uL (1.2-4.9); Mean Corpuscular HGB Conc 29.2 g/dl (31.0-36.0); Mean Corpuscular Hemoglobin 28.3 pg (27.0-33.0); Mean Corpuscular Volume 97.1 fL (80.0-98.0); Mean Platelet Volume 10.8 fL (9.4-12.4); Monocytes Absolute Auto 0.2 X10*3/uL (0.1-1.2); Monocytes Percent Auto 2.3 % (2-11); Neutrophils Absolute Auto 8.5 x10*3/uL (2.0-8.3); Neutrophils Percent Auto 88.1 % (45-73); Platelet Count 245 X10*3/uL (160-400); Red Blood Count 5.15 X10*6/uL (4.60-5.80); Red Cell Distribution Width 16.7 % (11.0-16.0); White Blood Count 9.7 X10*3/uL (4.8-10.8)
[2023-08-27 06:29] LABS: Anion Gap 17 (12-20); Blood Urea Nitrogen 15 mg/dL (9-16); Calcium 9.6 mg/dL (8.4-10.2); Chloride 92 mmol/L (96-108); Creatinine Clr Calc Pharmacy 158.1; Estimated Glomerular Filt Rate > 60; Glucose Random 125 mg/dL (60-115); Potassium 5.5 mmol/L (3.3-5.1); Sodium 143 mmol/L (135-145)
[2023-08-27 06:38] LABS: Carbon Dioxide 40 mmol/L (22-29)
--- NOTE | 2023-08-27 07:23 | HO.PM.IMPN ---
Subjective Subjective Date of Service: 08/27/23 Interval History: f/u on copd exacerbation less sob Physical Exam Vital Signs: Vital Signs: Last Vital Signs Temp 98.5 F 08/27/23 07:05 Pulse 64 08/27/23 07:05 Resp 18 08/27/23 07:05 BP 147/66 H 08/27/23 07:05 Pulse Ox 91 L 08/27/23 07:05 O2 Del Method Nasal Cannula 08/27/23 07:05 O2 Flow Rate 4 08/27/23 07:05 Oxygen Flow Rate 4 08/26/23 07:37 BMI result Body Mass Index 47.3 Const: Other: Constitutional - Awake and Alert, No apparent distress Eyes - PERRLA, EOMI Cardiovascular - S1S2, RRR, 1+ edema ble Respiratory - Normal lung expansion, Normal respiratory effort, No respiratory distress, expiratory wheezes bilaterally, crackles low lobes bilaterally Gastrointestinal - NT / ND; +BS; No rebound or guarding Extremities - no calf tenderness bilaterally, no swelling Skin - Warm/Dry Neurological - Alert & oriented x3 Psychological - Appropriate affect Objective Data Active Medications Acetaminophen (Acetaminophen 325 Mg Tablet) 650 mg PO Q6H PRN PRN Reason: Pain, Mild (Pain Scale 1-3) Albuterol Sulfate (Albuterol Sulfate (0.083%) 2.5 Mg/3 Ml Vial.Neb) 2.5 mg INHALE Q2H PRN PRN Reason: Shortness of Breath/Wheezing Albuterol/Ipratropium (Albuterol/Iprat 2.5/0.5mg 3 Ml Ampul.Neb) 3 ml INHALE RQ4H WHILE AWAKE [facility] Last Admin: 08/26/23 19:41 Dose: 3 ml Documented By: CHRISTOPHER Amiodarone HCl (Amiodarone Hcl 200 Mg Tablet) 200 mg PO BEDTIME [facility] Last Admin: 08/26/23 20:41 Dose: 200 mg Documented By: AIDEE Apixaban (Apixaban 5 Mg Tablet) 5 mg PO BID [facility] Last Admin: 08/26/23 20:41 Dose: 5 mg Documented By: AIDEE Azelastine HCl (Azelastine Hcl Nasal 137 Mcg/[place] 30 Ml) 2 spray NOSTRIL-B DAILY PRN PRN Reason: Allergy Symptoms Azithromycin (Azithromycin 500 Mg Tablet) 500 mg PO Q24H [facility] Last Admin: 08/26/23 13:14 Dose: 500 mg Documented By: GABRIELA Diltiazem HCl (Diltiazem Hcl Cd 240 Mg Cap.Er.Deg) 240 mg PO BEDTIME [facility]; Protocol Last Admin: 08/26/23 20:41 Dose: 240 mg Documented By: AIDEE Docusate Sodium (Docusate Sodium 100 Mg Capsule) 100 mg PO DAILY PRN PRN Reason: Constipation Fluticasone/Vilanterol (Fluticasone/Vilanterol 200/25 Blst.W.Dev) 1 puff INHALE RDAILY [facility] Furosemide (Furosemide 40 Mg Tablet) 40 mg PO BID [facility]; Protocol Last Admin: 08/26/23 20:42 Dose: 40 mg Documented By: AIDEE Methimazole (Methimazole 5 Mg Tablet) 2.5 mg PO BEDTIME [facility] Last Admin: 08/26/23 20:41 Dose: 2.5 mg Documented By: AIDEE Methylprednisolone Sodium Succinate (Methylprednisolone Sod Succ 40 Mg/Ml Vial) 40 mg IVPUSH Q12H [facility] Last Admin: 08/26/23 20:41 Dose: 40 mg Documented By: AIDEE Metoprolol Succinate (Metoprolol Succinate Er 100 Mg Tab.Er.24h) 100 mg PO BEDTIME [facility]; Protocol Last Admin: 08/26/23 20:41 Dose: 100 mg Documented By: AIDEE Multivitamins/Vitamin C (Multivitamin Tablet) 1 tab PO BEDTIME [facility] Last Admin: 08/26/23 20:42 Dose: 1 tab Documented By: AIDEE Omeprazole (Omeprazole 20 Mg Capsule.Dr) 20 mg PO DAILY@0630 [facility] Last Admin: 08/27/23 05:36 Dose: 20 mg Documented By: AIDEE Ondansetron HCl (Ondansetron Hcl 4 Mg/2 Ml Vial) 4 mg IVPUSH Q8H PRN PRN Reason: Nausea and Vomiting Roflumilast (Roflumilast 500 Mcg Tablet) 500 mcg PO BEDTIME [facility] Last Admin: 08/26/23 20:42 Dose: 500 mcg Documented By: AIDEE Sodium Chloride (0.9 % Sodium Chloride Flush 3 Ml Syringe) 3 ml IVFLUSH QSHIFT [facility] Last Admin: 08/26/23 20:41 Dose: 3 ml Documented By: AIDEE Thiamine HCl (Thiamine Hcl 100 Mg Tablet) 500 mg PO BEDTIME [facility] Last Admin: 08/26/23 20:41 Dose: 500 mg Documented By: AIDEE Tiotropium [place] (Tiotropium [place] 2.5 Mcg Inhaler) 1 puff INHALE RBID [facility] Last Admin: 08/26/23 19:47 Dose: Not Given Documented By: CHRISTOPHER Non-Admin Reason: Med Not Available Vitamin D (Cholecalciferol (Vitamin D3) 25 Mcg Tablet) 25 mcg PO BEDTIME [facility] Last Admin: 08/26/23 20:41 Dose: 25 mcg Documented By: AIDEE Vitamin E (Vitamin E (Dl,Tocopheryl Acet) 180 Mg (400 Unit) Capsule) 180 mg PO BEDTIME [facility] Last Admin: 08/26/23 20:41 Dose: 180 mg Documented By: AIDEE Labs 08/27/23 05:35 08/27/23 05:35 Labs: Laboratory Results - last 24 hr 08/26/23 08/26/23 08/26/23 07:59 12:55 12:59 MCV 95.3 MCH 28.6 MCHC 30.0 L RDW 17.0 H Plt Count 230 MPV 10.5 Immature Gran % (Auto) 0.4 Neut % (Auto) 79.1 H Lymph % (Auto) 9.9 L [place] % (Auto) 8.1 Eos % (Auto) 2.0 Baso % (Auto) 0.5 Lymph # (Auto) 1.0 L [place] # (Auto) 0.8 Eos # (Auto) 0.2 Baso # (Auto) 0.1 Abs Immat Gran (auto) 0.04 H Absolute Neuts (auto) 7.7 Absolute Nucleated RBC 0.000 Nucleated RBC % (auto) 0.0 VBG pH 7.39 VBG pCO2 74 VBG pO2 39 VBG HCO3 45 H VBG O2 Saturation 59.0 VBG Base Excess 15.8 Anion Gap 17 Estim Creat Clear Calc 172.1 Estimated GFR > 60 Random Glucose 101 Calcium 9.1 Total Bilirubin 0.6 AST 23 ALT 29 Alkaline Phosphatase 65 B-Natriuretic Peptide 58 Total Protein 6.7 Albumin 3.8 Respiratory Panel Rodriguez See Note Adenovirus (Rapid PCR) Not Detected B.pert (TEM-PCR) Not Detected B.parapertussis DNA PCR Not Detected C. pneumoniae DNA (PCR) Not Detected Coronavirus OC43 (PCR) Not Detected Coronavirus HKU1 (PCR) Not Detected Coronavirus 229E (PCR) Not Detected Coronavirus NL63 (PCR) Not Detected Human Metapneumovir PCR Not Detected Influenza A (RT-PCR) Not Detected Influenza B (RT-PCR) Not Detected M. pneumoniae (PCR) Not Detected Parainfluenza 1 (PCR) Not Detected Parainfluenza 2 (PCR) Not Detected Parainfluenza 3 (PCR) Not Detected Parainfluenza 4 (PCR) Not Detected RSV (PCR) Not Detected Entero/Rhino (PCR) Not Detected SARS-CoV-2 RNA (RT-PCR) Not Detected 08/27/23 05:35 MCV 97.1 MCH 28.3 MCHC 29.2 L RDW 16.7 H Plt Count 245 MPV 10.8 Immature Gran % (Auto) 0.5 H Neut % (Auto) 88.1 H Lymph % (Auto) 9.0 L [place] % (Auto) 2.3 Eos % (Auto) 0.0 Baso % (Auto) 0.1 Lymph # (Auto) 0.9 L [place] # (Auto) 0.2 Eos # (Auto) 0.0 Baso # (Auto) 0.0 Abs Immat Gran (auto) 0.05 H Absolute Neuts (auto) 8.5 H Absolute Nucleated RBC 0.000 Nucleated RBC % (auto) 0.0 VBG pH VBG pCO2 VBG pO2 VBG HCO3 VBG O2 Saturation VBG Base Excess Anion Gap 17 Estim Creat Clear Calc 158.1 Estimated GFR > 60 Random Glucose 125 H Calcium 9.6 Total Bilirubin AST ALT Alkaline Phosphatase B-Natriuretic Peptide Total Protein Albumin Respiratory Panel Rodriguez Adenovirus (Rapid PCR) B.pert (TEM-PCR) B.parapertussis DNA PCR C. pneumoniae DNA (PCR) Coronavirus OC43 (PCR) Coronavirus HKU1 (PCR) Coronavirus 229E (PCR) Coronavirus NL63 (PCR) Human Metapneumovir PCR Influenza A (RT-PCR) Influenza B (RT-PCR) M. pneumoniae (PCR) Parainfluenza 1 (PCR) Parainfluenza 2 (PCR) Parainfluenza 3 (PCR) Parainfluenza 4 (PCR) RSV (PCR) Entero/Rhino (PCR) SARS-CoV-2 RNA (RT-PCR) Assessment and Plan (1) Acute exacerbation of chronic obstructive airways disease: Status: Acute Plan 62-year-old male with history of COPD with chronic hypoxemic respiratory failure on supplemental O2 p.r.n., paroxysmal atrial fibrillation/flutter anticoagulated with Eliquis, hyperthyroidism, obstructive sleep apnea, who is morbidly obese with BMI greater than 47 admitted for acute on chronic hypoxemic hypercapnic respiratory failure secondary to COPD exacerbation and acute congestive heart failure exacerbation. # acute on chronic hypoxemic hypercapnic respiratory failure to COPD exacerbation and CHF exacerbation -VBG reassuring, pH normal. PCO2 around baseline at 74, no lethargy -Continue supplemental O2 prn to maintain oximetry 88-90% # acute COPD exacerbation -respiratory pathogen panel negative -CXR negative for any acute infectious process -p.o. azithromycin 500 mg x 3 days due to productive cough (initiated 08/26) -40 mg IV methylprednisolone b.i.d. -DuoNebs q.4h while awake -albuterol q.2h p.r.n. -continue maintenance medications # acute on chronic diastolic heart failure exacerbation -BNP normal, chest x-ray showing stable slight blunting of the bilateral costophrenic angles. Does report chronic orthopnea with about 12-15 lb weight gain over the last 6 weeks -last echo 07/2023 showing normal LV systolic function with EF 65-70% - IV Lasix and follow clinically, -cardiac diet -strict I&O -daily weights # paroxysmal atrial fibrillation/flutter-rate controlled -continue Eliquis -continue amiodarone, metoprolol, diltiazem # hyperthyroidism -continue methimazole #History PE -continue eliquis # obstructive sleep apnea -CPAP at bedtime # morbid obesity -weight loss efforts encouraged DVT prophylaxis-Eliquis Full code need for inpatient: IV steroid for copd with hypoxia, IV diuretics for chf exacerbation Time Spent With Patient Time: Total time managing care of this patient today ____ minutes. Quality Stroke Does the patient have a stroke diagnosis?: No VTE Prior VTE?: Yes VTE Risk Level:: Medical - moderate - high VTE Device Contraindication: Treatment Not Indicated VTE Drug Contraindication: N/A - Med Ordered
[2023-08-27] MEDS: Albuterol/Iprat 2.5/0.5MG 3 ML AMPUL.NEB INHALE ×4 (07:30→19:45)
[2023-08-27] MEDS: Apixaban 5 MG TABLET PO ×2 (07:55→20:44)
[2023-08-27] MEDS: methylPREDNISolone Sod Succ 40 MG/ML VIAL IVPUSH ×2 (07:58→20:44)
[2023-08-27] MEDS: 0.9 % Sodium Chloride Flush 3 ML SYRINGE IVFLUSH ×3 (07:59→20:46)
[2023-08-27] MEDS: Fluticasone/Vilanterol 200/25 BLST.W.DEV 1 PUFF INHALE (08:12)
--- NOTE | 2023-08-27 10:14 | MHC.CM.PN ---
PT REPORTS HE LIVES WITH HIS AND IS INDEPENDENT WITH CARE PT HAS HOME OXYGEN, A NEBULIZER AND A CPAP, PROVIDED BY [facility] HE USES ALL OF HIS DME PRN EXCEPT THE CPAP WHICH HE USES NIGHTLY PT HAS NO HOME SERVICES HE HAS A HCP ON FILE PCP: NICOLLE BLACK DCP: HOME TOMORROW VIA SELF TRANSPORT CAR IS IN THE LOT
[2023-08-27] MEDS: Azithromycin 500 MG TABLET PO (12:55)
[2023-08-27] MEDS: Cholecalciferol (Vitamin D3) 25 MCG TABLET PO (20:43)
[2023-08-27] MEDS: Roflumilast 500 MCG TABLET PO (20:43)
[2023-08-27] MEDS: dilTIAZem HCL CD 240 MG CAP.ER.DEG PO (20:43)
[2023-08-27] MEDS: Thiamine HCL 100 MG TABLET 500 MG PO (20:44)
[2023-08-27] MEDS: Metoprolol Succinate ER 100 MG TAB.ER.24H PO (20:44)
[2023-08-27] MEDS: Vitamin E (Dl,Tocopheryl Acet) 180 MG (400 UNIT) CAPSULE PO (20:44)
[2023-08-27] MEDS: Amiodarone HCL 200 MG TABLET PO (20:44)
[2023-08-27] MEDS: Multivitamin TABLET 1 TAB PO (20:44)
[2023-08-27] MEDS: methIMAzole 5 MG TABLET 2.5 MG PO (20:46)
[2023-08-28 03:50] VITALS: BP 154/84; PULSE 58; RESP 16; TEMP 36.1; O2SAT 93
[2023-08-28] MEDS: Omeprazole 20 MG CAPSULE.DR PO (06:27)
[2023-08-28 06:36] VITALS: BMI 46.9
[2023-08-28 06:59] VITALS: BP 153/82; PULSE 61; RESP 18; TEMP 36.1; O2SAT 91
[2023-08-28] MEDS: Apixaban 5 MG TABLET PO (08:15)
[2023-08-28] MEDS: methylPREDNISolone Sod Succ 40 MG/ML VIAL IVPUSH (08:15)
[2023-08-28] MEDS: 0.9 % Sodium Chloride Flush 3 ML SYRINGE IVFLUSH (08:15)
[2023-08-28] MEDS: Fluticasone/Vilanterol 200/25 BLST.W.DEV 1 PUFF INHALE (08:41)
[2023-08-28] MEDS: Albuterol/Iprat 2.5/0.5MG 3 ML AMPUL.NEB INHALE (08:44)
[2023-08-28 08:45] VITALS: PULSE 61; RESP 18; O2SAT 90
[2023-08-28 09:42] LABS: Anion Gap 15 (12-20); Blood Urea Nitrogen 22 mg/dL (9-16); Calcium 9.7 mg/dL (8.4-10.2); Carbon Dioxide 39 mmol/L (22-29); Chloride 92 mmol/L (96-108); Creatinine Clr Calc Pharmacy 153.3; Estimated Glomerular Filt Rate > 60; Glucose Random 118 mg/dL (60-115); Potassium 4.9 mmol/L (3.3-5.1); Sodium 141 mmol/L (135-145)
--- NOTE | 2023-08-28 09:47 | P.DS_ITS ---
DS: Providers Provider Date of Service: 08/28/23 Date of admission: 08/26/23 12:45 Primary care physician: Alea Hull MD DS: Diagnosis Discharge Diagnosis (1) Acute on chronic diastolic (congestive) heart failure: Status: Acute (2) Acute respiratory failure with hypoxia and hypercapnia: Status: Resolved (3) Acute exacerbation of chronic obstructive airways disease: Status: Acute DS: Summary Hospital Course Hospital Course: Admission HPI: Chief Complaint: sob 62-year-old male with history of COPD with chronic hypoxemic respiratory failure on supplemental O2 p.r.n., paroxysmal atrial fibrillation/flutter anticoagulated with Eliquis, hyperthyroidism, obstructive sleep apnea, who is morbidly obese with BMI greater than 47 presents the ED earlier today for evaluation of dy spnea. He was recently discharged on 07/11 for COPD exacerbation with acute on chronic respiratory failure and acute on chronic diastolic heart failure. He was discharged on supplemental O2 p.r.n. and p.o. Lasix which he has been compliant with. He states after discharge, had been doing well but for about 2 weeks has needed to use supplemental O2 intermittently. Has been attending pulmonary rehab. Over the last 3 days has had worsening shortness of breath both at rest and with exertion and requiring near continuous use of 2.5 L supplemental O2 with concentrator. He reports subjective fevers but has been afebrile in the ED. Has had an intermittent productive cough which is new from baseline and has been sneezing with headache. Has orthopnea at baseline and sleeps with 2 pillows. Denies any known sick contacts. No sore throat, sinus pressure, abdominal pain, nausea, vomiting, diarrhea, palpitations, lightheadedness, lower extremity edema, or chest pain. He feels he has gained about 15 lb since discharge. On review of chart has gained about 12 pounds since PCP discharge follow up on 07/16. On arrival, patient initially tachypneic to 24 respirations per minute noted to be desaturating to low 70s with exertion. He was placed on 3-4 L supplemental O2 and is maintaining oximetry 90% at rest. There is no leukocytosis. Renal function and electrolyte levels normal. VBG pending. Troponin 7.8. BNP 58. Respiratory pathogen panel pending. Chest x-ray negative for any acute cardiopulmonary disease. Shows stable small patchy linear densities likely atelectasis that are unchanged and unchanged bilateral blunting of the costophrenic angles. EKG shows NSR, rate 64 without any ANIKET or depressions. In the ED, given albuterol nebulizer, and DuoNeb with limited improvement in symptoms. Hospital course: Patient presented with shortness of breath, and was noted to be in copd exacerbation, heart failure exacerbation causing acute on chronic hypoix respiratory failure. COPD was treated with bronchodilators by Neb and IV steroid. Heart failure was treated with IV diuretic, he improved over the course of hospitalization and is feeling better. Other findings are hyperkalemia now resoled and chronic metabolic alkalosis. He will be dischrged home with Prednisone and continue all other meds. Final diagnoses; Acute on chronic hypoxic respiratory failure copd exacerbation acute on chronic diastolic heart failure hyperkalemia chronic metabolic alkalosis obesity parox afib Time Spent with Patient Time attestation: Total time managing care of this patient today ____ minutes. Discharge coordination time: Greater than 30 minutes Quality: Safe Use of Opioids Does Pt have an Active Cancer Diagnosis on the Problem List?: No Quality: Stroke Does the patient have a stroke diagnosis?: No Physical Exam Vital Signs: Vital Signs: Last Vital Signs Temp 97 F 08/28/23 06:59 Pulse 61 08/28/23 08:45 Resp 18 08/28/23 08:45 BP 153/82 H 08/28/23 06:59 Pulse Ox 91 L 08/28/23 06:59 O2 Del Method Nasal Cannula 08/28/23 06:59 O2 Flow Rate 2 08/28/23 06:59 Oxygen Flow Rate 4 08/26/23 07:37 BMI result Body Mass Index 46.9 Const: Other: General: AO X 3, no acute distress Resp: CTA bilateral CVS: S1,S2,RRR GI: +BS, NT, no distention Skin: No rash Neuro: motor grossly intact Psych: appropriate affect DS: Data Data Completed and Pending Labs on day of discharge: Laboratory Results - last 24 hr 08/28/23 09:13 Sodium 141 Potassium 4.9 Chloride 92 L Carbon Dioxide 39 H Anion Gap 15 BUN 22 H Creatinine 0.76 Estim Creat Clear Calc 153.3 Estimated GFR > 60 Random Glucose 118 H Calcium 9.7 Discharge Plan Discharge Anticipated Discharge Date/Time: 08/28/23 09:48 Patient Disposition: Home, Self-Care Discharge Diagnosis: COPD exacerbation Referrals: Alea Hull MD [Primary Care Provider] - 1 Week Discharge Medications: New prednisone 20 mg tablet 40 mg PO DAILY Qty: 6 0RF Continued multivitamin Tablet 1 tab PO BEDTIME albuterol sulfate 2.5 mg /3 mL (0.083 %) Solution For Nebulization 2.5 mg INHALATION Q4H PRN (Reason: Wheezing) diltiazem HCl 240 mg Capsule,Extended Release 24 Hr 240 mg PO BEDTIME albuterol sulfate 90 mcg/actuation Hfa Aerosol Inhaler 2 puff INHALATION QID PRN (Reason: Wheezing) cholecalciferol (vitamin D3) 25 mcg (1,000 unit) Tablet 25 mcg PO BEDTIME Spiriva Respimat 2.5 mcg/actuation Mist 1 puff INHALATION BID amiodarone 200 mg Tablet 200 mg PO BEDTIME methimazole 5 mg tablet 2.5 mg PO BEDTIME metoprolol succinate 100 mg tablet extended release 24 hr 100 mg PO BEDTIME roflumilast 500 mcg tablet 500 mcg PO BEDTIME thiamine HCl (vitamin B1) 500 mg Tablet 500 mg PO BEDTIME acetaminophen 500 mg Tablet 1,000 mg PO Q6H PRN (Reason: Pain) azelastine 137 mcg (0.1 %) aerosol,spray 2 spray intranasal DAILY PRN (Reason: Allergy Symptoms) vitamin E 268 mg (400 unit) Capsule 268 mg PO BEDTIME budesonide-formoterol [Symbicort] 160-4.5 mcg/actuation Hfa Aerosol Inhaler 2 puff INHALATION BID omega 0-lxs-lsw-fish oil [Fish Oil] 300-1,000 mg Capsule 1 cap PO BEDTIME omeprazole magnesium 20 mg Capsule,Delayed Release(Dr/Ec) 20 mg PO DAILY@0630 Eliquis 5 mg tablet 5 mg PO BID furosemide 40 mg tablet 40 mg PO BID (DME) compr.stocking,knee,long,large Misc See Rx Instructions .Route Qty: 12 0RF Rx Instructions: As directed (DME) CPAP Machine/Device Device See Rx Instructions .Route Rx Instructions: As directed (DME) Oxygen Home Use Kit See Rx Instructions .Route Rx Instructions: As directed (DME) nebulizers Misc See Rx Instructions .Route Rx Instructions: As directed Discharge Orders: Discharge Order (Routine); Ordered 08/28/23 Ordered By: Gautam Zuniga Diet: Advance to usual diet Activity on Discharge: As tolerated Stand Alone Forms: Patient Portal Discharge page Care Plan Goals: full recovery from heart failre and copd Health Concerns: COPD Heart failure Plan of Treatment: Take prednisone as directed and follow up with your PCP within a week. Continue all other medication Assessment: As above
--- NOTE | 2023-08-28 10:21 | MHC.CM.PN ---
DP: PT HAS BEEN MEDICALLY CLEARED FOR DC HOME, NO SERVICES. PT HAS CAR IN LOT AND FEELS COMFORTABLE TRANSPORTING SELF HOME. DENIES ANY FURTHER NEEDS AT THIS TIME.
== END 2023-08-28 10:53 | disposition home or self-care (01) | DRG 140 ==
LOC: HO.ED 12:26 → HO.EDOVER 13:05 → HO.S3 17:33
PROVIDERS: Admitting Provider Physician Assistant; Emergency Provider Emergency Medicine; PCP Internal Medicine; Visit Provider Internal Medicine
DX: J44.1 Chronic obstructive pulmonary disease with (acute) exacerbation (principal); J96.21 Acute and chronic respiratory failure with hypoxia; I50.33 Acute on chronic diastolic (congestive) heart failure; E87.3 Alkalosis; J96.22 Acute and chronic respiratory failure with hypercapnia; I48.0 Paroxysmal atrial fibrillation; G47.33 Obstructive sleep apnea (adult) (pediatric); E05.90 Thyrotoxicosis, unspecified without thyrotoxic crisis or storm; E66.01 Morbid (severe) obesity due to excess calories; E87.5 Hyperkalemia; Z23 Encounter for immunization; Z20.822 Contact with and (suspected) exposure to COVID-19; Z68.42 Body mass index [BMI] 45.0-49.9, adult; Z86.711 Personal history of pulmonary embolism; Z87.891 Personal history of nicotine dependence; Z79.01 Long term (current) use of anticoagulants; Z79.899 Other long term (current) drug therapy
CPT/HCPCS: 36415; 71045; 80048; 80053; 82803; 83880; 84484; 85025; 87633; 90686; 93005; 94640; 99285; J1940; J2920

== ENCOUNTER → 2023-08-26 12:45 | Outpatient (BNV) | payer BC, SELFPAY | PROVIDERS: Admitting Provider Physician Assistant; Emergency Provider Emergency Medicine; PCP Internal Medicine; Visit Provider Internal Medicine | DX: I50.33 Acute on chronic diastolic (congestive) heart failure (principal); J96.01 Acute respiratory failure with hypoxia; J96.02 Acute respiratory failure with hypercapnia; J44.1 Chronic obstructive pulmonary disease with (acute) exacerbation | CPT/HCPCS: 99223; 99232; 99239 ==

== ENCOUNTER 2023-09-09 08:17 | Outpatient (AMB) | payer BC, SELFPAY ==
--- NOTE | 2023-09-09 08:26 | MHC.OFFVIS ---
Intake Vital Signs 09/09/23 08:27 Height 5 ft 11 in Weight 332 lb 14.368 oz BMI 46.4 BP 124/68 Blood Pressure Location Lt brachial Position Sitting Pulse 66 Intake Visit Reasons: follow up Intake Note: follow up Education Reviewer Required: No Accompanied by: Self / Same As Patient Allergies No Known Allergies Allergy (Verified 09/09/23 08:27) Medication List - Last Reconciled 09/09/23 by Josesito Thorne MD acetaminophen 1,000 mg PO Q6H PRN albuterol sulfate 90 mcg/actuation 2 puffs inhalation QID PRN albuterol sulfate 2.5 mg inhalation Q4H PRN amiodarone 200 mg PO BEDTIME apixaban (Eliquis) 5 mg PO BID azelastine 2 sprays intranasal DAILY PRN budesonide-formoterol 160-4.5 mcg/actuation (Symbicort) 2 puffs inhalation BID cholecalciferol (vitamin D3) 25 mcg PO BEDTIME compr.stocking,knee,long,large As directed CPAP (CPAP Machine/Device) As directed diltiazem HCl ER 240 mg PO BEDTIME furosemide 40 mg PO BID methimazole 2.5 mg PO BEDTIME metoprolol succinate ER 100 mg PO BEDTIME multivitamin 1 tab PO BEDTIME nebulizers As directed omega 8-ghq-vvi-fish oil 300-1,000 mg (Fish Oil) 1 cap PO BEDTIME omeprazole magnesium 20 mg PO DAILY@0630 Oxygen Home Use As directed roflumilast 500 mcg PO BEDTIME thiamine HCl (vitamin B1) 500 mg PO BEDTIME tiotropium bromide 2.5 mcg/actuation (Spiriva Respimat) 1 puff inhalation BID vitamin E 268 mg PO BEDTIME HPI HPI Comments History of Present Illness Details Mario is here for consultation regarding atrial fibrillation/flutter. He states he has moved to this area and previously lived in [facility]. Apparently around 10 years ago he was playing golf at that time told his cough muscle. That led to DVT and in that setting also developed pulmonary embolism. Consequently, developed atrial flutter. Apparently a underwent cardioversion couple of times last at least 8 years ago. Then according to him, he underwent 2 ablations but not clear if it is flutter ablation or pulmonary vein isolation for atrial fibrillation. Last time around [id number]. Then according to patient 1 further episode of atrial fibrillation in 2020 in the setting of pneumonia. Patient states he has been on amiodarone for many many years. Unclear reasoning considering his relatively young age. Patient states he otherwise feels okay. He has COPD as well as obstructive sleep apnea. No documented coronary disease but per patient. No anginal-type symptoms. As he has moved to this area he would like new technology solutions architect. [facility] Medical History Chronic diastolic heart failure Acute on chronic diastolic (congestive) heart failure Acute exacerbation of chronic obstructive airways disease Hyperthyroidism Venous insufficiency of both lower extremities Chronic respiratory failure Hx pulmonary embolism Paroxysmal atrial flutter PAF (paroxysmal atrial fibrillation) Lung mass COPD (chronic obstructive pulmonary disease) Surgical History H/O cardiac radiofrequency ablation Family History Father Bone cancer Mother COPD (chronic obstructive pulmonary disease) Social History Household Members: Spouse Household Members Other:: Housing: House Do you presently have visiting nurse or other home services: No Unable to assess alcohol history related to: Unknown Alcohol intake: current Alcohol intake frequency: holidays/special occasions only Patient Tobacco Use Status: Former Tobacco user Years Smoked: 30 years e-Cigarette/Vaping Use: Never Used Second Hand Smoke Exposure: No Advance Directives Date on File: 07/14/23 service: No Current occupational status: employed Cognitive needs: No Hearing needs: No Vision needs: Yes Review of Systems Const Denies weakness ENT Denies dizziness Card Denies chest pain, Denies chest pain with activity, Denies syncope, Denies rapid heart rate, Denies pedal edema, Denies edema, Denies leg edema, Denies lightheadedness, Denies palpitations, Denies dyspnea, Denies dyspnea on exertion and Denies orthopnea Resp Denies cough, Denies dyspnea and Denies dyspnea on exertion GI Denies hematochezia and Denies change in stool character Musc Denies abnormal gait, Denies muscle cramps, Denies muscle weakness, Denies numbness, Denies radiating pain into limb and Denies tingling Neuro Denies abnormal gait, Denies dizziness, Denies syncope, Denies numbness, Denies tingling and Denies weakness Endo Denies palpitations Physical Exam Vital Signs: Last Vital Signs Pulse 66 09/09/23 08:27 BP 124/68 09/09/23 08:27 BMI result Body Mass Index 46.4 Office Procedures EKG Details: EKG with sinus rhythm at 66/Min; leftward axis; cannot exclude old inferior infarct; [place]. [id number], Complete Assessment & Plan Assessment & Plan (1) PAF (paroxysmal atrial fibrillation): Code(s): I48.0 - Paroxysmal atrial fibrillation (2) Paroxysmal atrial flutter: Code(s): I48.92 - Unspecified atrial flutter (3) Obesity: Code(s): E66.9 - Obesity, unspecified Qualifiers: Obesity type: unspecified obesity type Obesity classification: adult class 3 (BMI >= 40) Serious obesity comorbidity presence: with serious comorbidity Body mass index: BMI 45.0-49.9 Qualified Code(s): E66.01 - Morbid (severe) obesity due to excess calories; Z68.42 - Body mass index [BMI] 45.0-49.9, adult Plan Old records reviewed. He has had about 3 cardioversions in 2013 and 2014. Atrial flutter ablation 2014 and 2016. Report of failed flecainide therapy. Through his prior technology solutions architect, he has been on long-term amiodarone. He states he has been on it for about 8 years or so. We discussed about the effects of long-term amiodarone use at his age. We discussed about thyroid function effects, pulmonary effects extra. After long discussion, we decided to try Multaq. Script being sent for the same. He will hold off amiodarone for a few days and then start Multaq and then we can get an EKG few days after that. Otherwise, also on metoprolol and diltiazem. On Eliquis. In the recent echocardiogram, LVEF 65-70%. Moderate left ventricular hypertrophy. Mild left atrial dilatation. In the Holter monitor, underlying rhythm is sinus with an average rate of 68/Min. Occasional ectopy but otherwise unremarkable. Main etiology for his recurrent atrial arrhythmias probably weight. Discussed about this at length. Strongly suggest bariatric consultation. He will think about it and discuss with his own PCP as well. We will plan on seeing him back in about 6 months time. If Multaq out by insurance and he starts it, will need to come back for an EKG. He is aware of that. Medications: New dronedarone (Multaq) must administer with a meal/food 400 mg PO BID 180 tabs 3RF 90 days Coding Level of Care Code Est Pt Level 4 (13336) Diagnoses PAF (paroxysmal atrial fibrillation) I48.0 Paroxysmal atrial flutter I48.92 Class 3 severe obesity with serious comorbidity and body mass index (BMI) of 45.0 to 49.9 in adult, unspecified obesity type E66.01; Z68.42 Obesity type: unspecified obesity type Obesity classification: adult class 3 (BMI >= 40) Serious obesity comorbidity presence: with serious comorbidity Body mass index: BMI 45.0-49.9 CPT Codes EKG - CPT: 46187-[id number], Complete ([id number])
[2023-09-09 08:27] VITALS: BP 124/68; PULSE 66; BMI 46.4
== END 2023-09-09 08:51 | disposition home or self-care (01) ==
PROVIDERS: PCP Internal Medicine; Visit Provider Internal Medicine
DX: I48.0 Paroxysmal atrial fibrillation (principal); I48.92 Unspecified atrial flutter; E66.01 Morbid (severe) obesity due to excess calories; Z68.42 Body mass index [BMI] 45.0-49.9, adult
CPT/HCPCS: 93010; 99214

== ENCOUNTER → 2023-09-09 08:17 | Outpatient (BNVA) | payer BC, SELFPAY | PROVIDERS: PCP Internal Medicine; Visit Provider Internal Medicine | DX: I48.0 Paroxysmal atrial fibrillation (principal); I48.92 Unspecified atrial flutter | CPT/HCPCS: 93005 ==

== ENCOUNTER 2023-09-10 08:50 | Outpatient (AMB) | payer BC, SELFPAY ==
[2023-09-10 08:54] VITALS: BP 128/66; PULSE 69; O2SAT 90; BMI 46.3
--- NOTE | 2023-09-10 08:54 | MHC.PC.OV ---
Vital Signs 09/10/23 08:54 Height 5 ft 11 in Weight 332 lb BMI 46.3 BP 128/66 Blood Pressure Location Lt brachial Position Sitting Pulse 69 Pulse Source Pulse Oximeter Pulse Oximetry (%) 90 L Oxygen Delivery Method Nasal Cannula Intake Visit Reasons: Annual PE Intake Note: Pt is here today for PE. Allergies No Known Allergies Allergy (Verified 09/10/23 08:57) Medication List - Last Reconciled 09/10/23 by Alea Hull MD acetaminophen 1,000 mg PO Q6H PRN albuterol sulfate 90 mcg/actuation 2 puffs inhalation QID PRN albuterol sulfate 2.5 mg inhalation Q4H PRN apixaban (Eliquis) 5 mg PO BID azelastine 2 sprays intranasal DAILY PRN budesonide-formoterol 160-4.5 mcg/actuation (Symbicort) 2 puffs inhalation BID cholecalciferol (vitamin D3) 25 mcg PO BEDTIME compr.stocking,knee,long,large As directed CPAP (CPAP Machine/Device) As directed diltiazem HCl ER 240 mg PO BEDTIME dronedarone (Multaq) 400 mg PO BID 90 days furosemide 40 mg PO BID methimazole 2.5 mg PO BEDTIME metoprolol succinate ER 100 mg PO BEDTIME multivitamin 1 tab PO BEDTIME nebulizers As directed omega 1-mxg-kem-fish oil 300-1,000 mg (Fish Oil) 1 cap PO BEDTIME omeprazole magnesium 20 mg PO DAILY@0630 Oxygen Home Use As directed roflumilast 500 mcg PO BEDTIME thiamine HCl (vitamin B1) 500 mg PO BEDTIME tiotropium bromide 2.5 mcg/actuation (Spiriva Respimat) 1 puff inhalation BID vitamin E 268 mg PO BEDTIME Tobacco use date assessed: 09/10/23 HPI Annual PE HPI Details Pt presents for PE. [facility] Medical History (Updated 09/10/23 @ 10:08 by Alea Hull MD) COPD (chronic obstructive pulmonary disease) Chronic diastolic heart failure Acute on chronic diastolic (congestive) heart failure Acute exacerbation of chronic obstructive airways disease Hyperthyroidism Venous insufficiency of both lower extremities Chronic respiratory failure Hx pulmonary embolism Paroxysmal atrial flutter PAF (paroxysmal atrial fibrillation) Lung mass Surgical History H/O cardiac radiofrequency ablation Family History Father Bone cancer Mother COPD (chronic obstructive pulmonary disease) Social History Household Members: Spouse Household Members Other:: Housing: House Do you presently have visiting nurse or other home services: No Unable to assess alcohol history related to: Unknown Alcohol intake: current Alcohol intake frequency: holidays/special occasions only Patient Tobacco Use Status: Former Tobacco user Years Smoked: 30 years e-Cigarette/Vaping Use: Never Used Second Hand Smoke Exposure: No Advance Directives Date on File: 07/14/23 service: No Current occupational status: employed Cognitive needs: No Hearing needs: No Vision needs: Yes Questionnaire Thrive Questionnaire Date Thrive assessed: 08/27/23 WILEY-7 AMB Questionnaire WILEY-7 Date WILEY - 7 assessed: 04/24/23 Source: Developed by Drs. Tre Maya, Kay Win, Hoang Bethea and colleagues, with an educational padmaja from [employer]. Review of Systems Const All systems reviewed & are unremarkable except as noted in HPI and below Reports no additional complaints Eyes Reports no additional complaints ENT Reports no additional complaints Card Reports no additional complaints Resp Reports no additional complaints GI Reports no additional complaints Reports no additional complaints Physical exam (Primary Care) Vital Signs: Last Vital Signs Pulse 69 09/10/23 08:54 BP 128/66 09/10/23 08:54 Pulse Ox 90 L 09/10/23 08:54 Oxygen Delivery Method Nasal Cannula 09/10/23 08:54 BMI result Body Mass Index 46.3 Tobacco/Smoking Status: Tobacco use Status Tobacco use date assessed 09/10/23 09/10/23 09:00 Patient Tobacco Use Status Former Tobacco user 09/10/23 09:00 e-Cigarette/Vaping Use Never Used 09/10/23 09:00 Thrive Assessment: Date of Thrive Assessment Date Thrive assessed 08/27/23 09/10/23 09:00 Const General: no acute distress HENMT Ears: hearing grossly normal bilaterally Face and sinus: Yes normal facial exam Throat: Yes posterior oropharynx normal Neck Neck: Yes no lymphadenopathy and Yes supple Resp Effort & Inspection: normal respiratory effort Auscultation: diminished lung sounds Cardio Rhythm: regular rhythm Heart sounds: S1 normal heart sound present and S2 normal heart sound present GI Inspection: Yes normal to inspection Palpation (GI): Soft to palpation Percussion: Yes normal to percussion Auscultation: normal bowel sounds Assessment and Plan Assessment & Plan (1) Hyperthyroidism: Code(s): E05.90 - Thyrotoxicosis, unspecified without thyrotoxic crisis or storm Plan: Cont Methimazole, check TSH in 2 months (2) Hx pulmonary embolism: Comment: 2013, on lifetime anticoagulation Code(s): Z86.711 - Personal history of pulmonary embolism Plan: cont Eliquis (3) PAF (paroxysmal atrial fibrillation): Code(s): I48.0 - Paroxysmal atrial fibrillation Plan: pt will be starting Multaq instead of Amiodarone (4) Annual physical exam: Code(s): Z00.00 - Encounter for general adult medical examination without abnormal findings Plan: well balanced diet, exercise, weight loss discussed, Pt is contemplating surgery (5) Hx of colonoscopy: Comment: [address] [facility] patient will get report Code(s): Z98.890 - Other specified postprocedural states (6) Dysplastic nevi: Code(s): D23.9 - Other benign neoplasm of skin, unspecified (7) COPD (chronic obstructive pulmonary disease): Comment: ex TOBACCO 2007 Code(s): J44.9 - Chronic obstructive pulmonary disease, unspecified Plan: cont inhalers and supplemental O2 Orders: Orders Comprehensive [place]. Panel Fast 2 Months E05.90 - Thyrotoxicosis, unspecified without thyrotoxic crisis or storm, I48.0 - Paroxysmal atrial fibrillation, Z00.00 - Encounter for general adult medical examination without abnormal findings, Z86.711 - Personal history of pulmonary embolism, Z98.890 - Other specified postprocedural states Complete Blood Count Auto Diff 2 Months E05.90 - Thyrotoxicosis, unspecified without thyrotoxic crisis or storm, I48.0 - Paroxysmal atrial fibrillation, Z00.00 - Encounter for general adult medical examination without abnormal findings, Z86.711 - Personal history of pulmonary embolism, Z98.890 - Other specified postprocedural states TSH reflex Free T4 2 Months E05.90 - Thyrotoxicosis, unspecified without thyrotoxic crisis or storm, I48.0 - Paroxysmal atrial fibrillation, Z00.00 - Encounter for general adult medical examination without abnormal findings, Z86.711 - Personal history of pulmonary embolism, Z98.890 - Other specified postprocedural states Microalbumin, Random (w Creat) 2 Months E05.90 - Thyrotoxicosis, unspecified without thyrotoxic crisis or storm, I48.0 - Paroxysmal atrial fibrillation, Z00.00 - Encounter for general adult medical examination without abnormal findings, Z86.711 - Personal history of pulmonary embolism, Z98.890 - Other specified postprocedural states Comprehensive [place]. Panel Fast 6 Months E05.90 - Thyrotoxicosis, unspecified without thyrotoxic crisis or storm, I48.91 - Unspecified atrial fibrillation, J44.9 - Chronic obstructive pulmonary disease, unspecified TSH reflex Free T4 6 Months E05.90 - Thyrotoxicosis, unspecified without thyrotoxic crisis or storm, I48.91 - Unspecified atrial fibrillation, J44.9 - Chronic obstructive pulmonary disease, unspecified Lipid Panel 2 Months E05.90 - Thyrotoxicosis, unspecified without thyrotoxic crisis or storm, I48.0 - Paroxysmal atrial fibrillation, Z00.00 - Encounter for general adult medical examination without abnormal findings, Z86.711 - Personal history of pulmonary embolism, Z98.890 - Other specified postprocedural states Hemoglobin A1c 2 Months E05.90 - Thyrotoxicosis, unspecified without thyrotoxic crisis or storm, I48.0 - Paroxysmal atrial fibrillation, Z00.00 - Encounter for general adult medical examination without abnormal findings, Z86.711 - Personal history of pulmonary embolism, Z98.890 - Other specified postprocedural states Complete Blood Count Auto Diff 6 Months E05.90 - Thyrotoxicosis, unspecified without thyrotoxic crisis or storm, I48.91 - Unspecified atrial fibrillation, J44.9 - Chronic obstructive pulmonary disease, unspecified Referrals Podiatry Referral L84 - Corns and callosities Dermatology Referral D23.9 - Other benign neoplasm of skin, unspecified Coding Level of Care Code Est Pt Prev Care 40-64y(57259) Diagnoses Hyperthyroidism E05.90 Hx pulmonary embolism Z86.711 PAF (paroxysmal atrial fibrillation) I48.0 Annual physical exam Z00.00 Hx of colonoscopy Z98.890 Dysplastic nevi D23.9 Mixed simple and mucopurulent chronic bronchitis J44.9
== END 2023-09-10 09:41 | disposition home or self-care (01) ==
PROVIDERS: PCP Internal Medicine; Visit Provider Internal Medicine
DX: Z00.00 Encounter for general adult medical examination without abnormal findings (principal); I48.0 Paroxysmal atrial fibrillation; J44.9 Chronic obstructive pulmonary disease, unspecified; E05.90 Thyrotoxicosis, unspecified without thyrotoxic crisis or storm; Z86.711 Personal history of pulmonary embolism; Z98.890 Other specified postprocedural states; D23.9 Other benign neoplasm of skin, unspecified
CPT/HCPCS: 99396

== ENCOUNTER 2023-09-23 08:42 | Outpatient (AMB) | payer BC, SELFPAY ==
--- NOTE | 2023-09-23 09:56 | AM.OFFVISNUR ---
Intake Intake Visit Reasons: ekg Allergies No Known Allergies Allergy (Verified 09/23/23 09:56) Nursing Note EKG patient.EKG shows heart rate og 61 bpm. Patient report feeling good. EKG left on Dr. Thorne desagusto for review. Office Procedures EKG 41398-[id number], Complete Coding CPT Codes EKG - CPT: 29931-[id number], Complete ([id number])
== END 2023-09-23 12:51 | disposition home or self-care (01) ==
PROVIDERS: PCP Internal Medicine; Visit Provider Internal Medicine
DX: I49.1 Atrial premature depolarization (principal); R94.31 Abnormal electrocardiogram [ECG] [EKG]
CPT/HCPCS: 93010

== ENCOUNTER → 2023-09-23 08:42 | Outpatient (BNVA) | payer BC, SELFPAY | PROVIDERS: PCP Internal Medicine; Visit Provider Internal Medicine | DX: R94.31 Abnormal electrocardiogram [ECG] [EKG] (principal) | CPT/HCPCS: 93005 ==

== ENCOUNTER 2023-10-06 07:00 | Inpatient (IN) | payer BC, SELFPAY ==
[2023-10-06] VITALS (11 sets, daily range): BP systolic 134–163; BP diastolic 73–77; PULSE 65–85; RESP 12–22; TEMP 36.3–36.7; O2SAT 75–93; BMI 44.8
--- NOTE | ~2023-10-06 | XR_ITS ---
EXAMINATION: XR CHEST CLINICAL INFORMATION: Shortness of breath COMPARISON: Chest x-ray the 2022 TECHNIQUE: Frontal view of the chest was obtained. FINDINGS: Similar cardiac enlargement. Prominence of the central pulmonary vasculature and interstitial markings diffusely. Subtle bibasilar opacities most suggestive of atelectasis. No large pleural effusion. No pneumothorax. XR/XR chest 1V IMPRESSION: Radiographic findings most suggestive of mild CHF. Superimposed viral process is not entirely excluded. Follow-up radiographs recommended status post treatment to ensure improvement/resolution.
--- NOTE | 2023-10-06 07:17 | ECG_ITS ---
Test Reason : SOB Blood Pressure : / mmHG Vent. Rate : 067 BPM Atrial Rate : 067 BPM P-R Int : 180 ms QRS Dur : 106 ms QT Int : 402 ms P-R-T Axes : -05 -32 044 degrees QTc Int : 424 ms Normal sinus rhythm Left anterior fascicular block Low voltage QRS Possible Inferior infarct (cited on or before 01-JUL-2022) Abnormal ECG When compared with ECG of 26-AUG-2023 07:48, No significant change was found Referred By: Santos Gilbert Electronically Signed By:BIJU PELAYO MD
--- NOTE | 2023-10-06 07:22 | ED.SOB ---
HPI - SOB/Dyspnea General Chief Complaint: Dyspnea Stated Complaint: trouble breathing/ Oxygen levels low Time Seen by Provider: 10/06/23 07:17 Source: patient Mode of arrival: ambulatory Limitations: no limitations History of Present Illness HPI Narrative: THIS IS 62 YEARS OLD MALE WITH HISTORY OF COPD ON CHRONIC O2 HISTORY OF PAROXYSMAL ATRIAL FIBRILLATION, HISTORY OF CHF PRESENTED TO THE EMERGENCY ROOM COMPLAINING OF SHORTNESS OF BREATH INCREASING FOR THE LAST WEEK. DENIES ANY FEVER CHILLS VOMITING DIARRHEA. HE WAS FOUND BE HYPOXIC IN TRIAGE A WITH THE OXYGEN SATURATION OF 75% HE WAS BROUGHT TO THE TREATMENT ROOM. MD elicited complaint: shortness of breath and cough Pertinent past history: COPD and congestive heart failure Onset (ago): week(s) (1) Context: occurred during exertion Timing: constant Severity: severe Exacerbating factors: exertion Relieving factors: nothing Known history of: COPD and congestive heart failure Related Data Home oxygen amount: 4 liters Home Medications Medication Instructions Recorded Confirmed albuterol sulfate 90 mcg/actuation 2 puff inhalation QID PRN Wheezing 07/01/22 09/10/23 aerosol inhaler cholecalciferol (vitamin D3) 25 25 mcg PO BEDTIME 07/01/22 09/10/23 mcg (1,000 unit) tablet multivitamin 1 tab PO BEDTIME 07/01/22 09/10/23 tiotropium bromide 2.5 1 puff inhalation BID 07/01/22 09/10/23 mcg/actuation mist for inhalation (Spiriva Respimat) methimazole 5 mg tablet 2.5 mg PO BEDTIME 04/24/23 09/10/23 acetaminophen 500 mg tablet 1,000 mg PO Q6H PRN Pain 07/08/23 09/10/23 azelastine 137 mcg (0.1 %) nasal 2 spray intranasal DAILY PRN 07/08/23 09/10/23 spray aerosol Allergy Symptoms budesonide-formoterol HFA 160 2 puff inhalation BID 07/08/23 09/10/23 mcg-4.5 mcg/actuation aerosol inhaler (Symbicort) metoprolol succinate 100 mg 100 mg PO BEDTIME 07/08/23 09/10/23 tablet,extended release 24 hr omega 8-kvn-pgj-fish oil 300 1 cap PO BEDTIME 07/08/23 09/10/23 mg-1,000 mg capsule (Fish Oil) omeprazole magnesium 20 mg 20 mg PO DAILY@0630 07/08/23 09/10/23 capsule,delayed release roflumilast 500 mcg tablet 500 mcg PO BEDTIME 07/08/23 09/10/23 thiamine HCl (vitamin B1) 500 mg 500 mg PO BEDTIME 07/08/23 09/10/23 tablet vitamin E 268 mg (400 unit) capsule 268 mg PO BEDTIME 07/08/23 09/10/23 CPAP (CPAP Machine/Device) 07/21/23 09/10/23 Oxygen Home Use 07/21/23 09/10/23 nebulizers 07/21/23 09/10/23 apixaban 5 mg tablet (Eliquis) 5 mg PO BID 08/26/23 09/10/23 furosemide 40 mg tablet 40 mg PO BID edema 08/26/23 09/10/23 Previous Rx's Medication Instructions Recorded compr.stocking,knee,long,large #12 ea 04/24/23 dronedarone 400 mg tablet (Multaq) 400 mg PO BID 90 days #180 tabs 09/09/23 albuterol sulfate 2.5 mg/3 mL 2.5 mg (3 mL) inhalation BID 90 09/29/23 (0.083 %) solution for nebulization days #540 mL diltiazem HCl 240 mg capsule,24 240 mg PO BEDTIME #90 caps 09/29/23 hr,extended release Allergies Allergy/AdvReac Type Severity Reaction Status Date / Time No Known Allergies Allergy Verified 09/23/23 09:56 Review of Systems Constitutional: Constitutional: Reports no additional constitutional complaints ENT: Reports system reviewed and no additional complaints, except as documented Cardiovascular: Cardiovascular: Reports no additional cardiovascular complaints and Reports dyspnea Respiratory: Respiratory: Reports dyspnea Musculoskeletal: Musculoskeletal: Reports no additional musculoskeletal complaints [facility]LY [facility], [facility] Past Medical History Attestation statement: The following information was validated with the patient. Medical History COPD (chronic obstructive pulmonary disease) Chronic diastolic heart failure Acute on chronic diastolic (congestive) heart failure Acute exacerbation of chronic obstructive airways disease Hyperthyroidism Venous insufficiency of both lower extremities Chronic respiratory failure Hx pulmonary embolism Paroxysmal atrial flutter PAF (paroxysmal atrial fibrillation) Lung mass Surgical History H/O cardiac radiofrequency ablation Family History Family History Father Bone cancer Mother COPD (chronic obstructive pulmonary disease) Social History Social History Household Members: Spouse Household Members Other:: Housing: House Do you presently have visiting nurse or other home services: No Unable to assess alcohol history related to: Unknown Alcohol intake: current Alcohol intake frequency: holidays/special occasions only Patient Tobacco Use Status: Former Tobacco user Years Smoked: 30 years Smoked in Last 30 Days: No e-Cigarette/Vaping Use: Never Used Second Hand Smoke Exposure: No Use of substances other than those prescribed or required for medical reasons: No Advance Directives: Yes Advance Directives on File: Yes Advance Directives Date on File: 07/14/23 service: No Current occupational status: employed Cognitive needs: No Hearing needs: No Vision needs: Yes Physical Exam Vital Signs: Vital Signs: Last Vital Signs Pulse 80 10/06/23 10:02 Resp 18 10/06/23 10:02 BP 151/77 H 10/06/23 10:02 Pulse Ox 92 10/06/23 10:02 O2 Del Method Nasal Cannula 10/06/23 07:02 O2 Flow Rate 6 10/06/23 10:02 Oxygen Flow Rate 2 10/06/23 07:02 BMI result Body Mass Index 44.8 Const: General: well developed, alert and acute distress Nutritional Appearance: well nourished Orientation/consciousness: patient oriented x3 HEENT: Head: Yes normal to inspection Ears: hearing grossly normal bilaterally General nose exam: Normal external nose present Face and sinus: Yes normal facial exam Mouth: Normal oral and palatal mucosa present Neck: Neck: Yes normal visual inspection and Yes full ROM Carotids: normal carotid upstroke Chest: Chest palpation & inspection: normal inspection of the chest Resp: Effort & Inspection: abnormal respiratory pattern and respiratory distress Auscultation: rhonchi and wheezes Cardio: Jugular venous distension: no JVD Rhythm: regular rhythm GI: Inspection: Yes normal to inspection Palpation (GI): Soft to palpation, nontender and no guarding Auscultation: normal bowel sounds Skin: General skin exam: no rashes or lesions noted and elasticity normal Neuro: General: patient oriented x3 Course Reevaluation(s) Reevaluation #1: doing better on 6 liter mask Time: 09:17 Medications Administered Discontinued Medications Generic Name Dose Route Start Last Admin Trade Name Sukumar PRN Reason Stop Dose Admin Acetaminophen 975 mg 10/06/23 08:06 10/06/23 08:09 Acetaminophen 325 Mg Tablet PO 10/06/23 08:07 975 mg ONCE ONE Administration Albuterol Sulfate 7.5 mg/ 0 mg 10/06/23 07:27 10/06/23 07:31 Albuterol/Ipratropium 3 ml INHALE 10/06/23 07:28 5 each ONCE ONE Administration Furosemide 40 mg 10/06/23 09:38 10/06/23 09:48 Furosemide 40 Mg/4 Ml Vial IVPUSH 10/06/23 09:39 40 mg ONCE ONE Administration Protocol Methylprednisolone Sodium Succinate 125 mg 10/06/23 07:19 10/06/23 07:32 Methylprednisolone Sod Succ 125 Mg/2 Ml Vial IVPUSH 10/06/23 07:20 125 mg ONCE ONE Administration Medical Decision Making Medical Decision Making [facility] Narrative: PATIENT PRESENTED HYPOXIC IN RESPIRATORY DISTRESS WILL OBTAIN CHEST X-RAY WILL ADMINISTER BRONCHODILATOR TREATMENT, IV STEROID AND REASSESS Differential Diagnosis Differential Diagnoses: The differential diagnosis associated with the presentation includes PNEUMONIA/COPD EXACERBATION/CONGESTIVE HEART FAILURE Admission/Observation Consideration of admission/observation: Escalation of care including admission/observation considered Consult Healthcare Provider Management of the patient was discussed with: Hospitalist Lab Data [facility] Lab Attestation statement: I reviewed the patient's lab results. 10/06/23 07:59 10/06/23 07:59 Labs: Lab Results 10/06/23 10/06/23 10/06/23 Range/Units 07:43 07:57 07:59 WBC 12.8 H (4.8-10.8) X10*3/uL RBC 5.25 (4.60-5.80) X10*6/uL Hgb 14.9 (14.0-18.0) g/dl Hct 50.0 (42.0-52.0) % MCV 95.2 (80.0-98.0) fL MCH 28.4 (27.0-33.0) pg MCHC 29.8 L (31.0-36.0) g/dl RDW 16.6 H (11.0-16.0) % Plt Count 179 D (160-400) X10*3/uL MPV 11.1 (9.4-12.4) fL Immature Gran % (Auto) 0.5 H (0.0-0.4) % Neut % (Auto) 76.3 H (45-73) % Lymph % (Auto) 14.6 L (20-40) % [place] % (Auto) 7.6 (2-11) % Eos % (Auto) 0.5 (0-4) % Baso % (Auto) 0.5 (0-2) % Lymph # (Auto) 1.9 (1.2-4.9) X10*3/uL [place] # (Auto) 1.0 (0.1-1.2) X10*3/uL Eos # (Auto) 0.1 (0.0-0.4) X10*3/uL Baso # (Auto) 0.1 (0.0-0.2) X10*3/uL Abs Immat Gran (auto) 0.06 H (0.00-0.03) X10*3/uL Absolute Neuts (auto) 9.8 H (2.0-8.3) x10*3/uL Absolute Nucleated RBC 0.000 (0.0-0.012) X10*3/uL Nucleated RBC % (auto) 0.0 (0.0-0.2) /100WBC VBG pH 7.36 (7.32-7.43) VBG pCO2 80 mmHg VBG pO2 59 mmHg VBG HCO3 46 H (22-26) mmol/L VBG O2 Saturation 84.0 % VBG Base Excess 15.5 mmol/L Sodium 142 (135-145) mmol/L Potassium 4.4 (3.3-5.1) mmol/L Chloride 95 L (96-108) mmol/L Carbon Dioxide 38 H (22-29) mmol/L Anion Gap 13 (12-20) BUN 16 (9-16) mg/dL Creatinine 0.72 (0.5-1.4) mg/dL Estim Creat Clear Calc 162.1 Estimated GFR > 60 Random Glucose 102 (60-115) mg/dL Calcium 9.0 D (8.4-10.2) mg/dL Total Bilirubin 0.8 (0.0-1.0) mg/dL Direct Bilirubin 0.3 (0.0-0.5) mg/dL AST 25 (5-37) U/L ALT 30 (0-40) U/L Alkaline Phosphatase 62 (39-117) U/L Troponin I High Sens 12.3 D (<3.5-35.0) ng/L B-Natriuretic Peptide Cancelled Total Protein 7.0 (6.5-8.0) g/dL Albumin 3.9 (3.5-5.0) g/dL Independent Interpretation I performed an independent interpretation of an: EKG (NSR [address]-t changes) and Plain X-Ray Interpretation: chf ekg no ischemia Radiology Impression Discussion of test interpretation with radiology: I have reviewed the radiologist's reading. Radiologist Impression: TECHNIQUE: Frontal view of the chest was obtained. FINDINGS: Similar cardiac enlargement. Prominence of the central pulmonary vasculature and interstitial markings diffusely. Subtle bibasilar opacities most suggestive of atelectasis. No large pleural effusion. No pneumothorax. XR/XR chest 1V IMPRESSION: Radiographic findings most suggestive of mild CHF. Superimposed viral process is not entirely excluded. Follow-up radiographs recommended status post treatment to ensure improvement/resolution. Dictated By: Jose Dale MD Signed By: <Electronically signed by Jose Dale MD in OV> 10/06/23 0927 External Record Review External record reviewed: Inpatient record Critical Care Time Critical Care Time Critical Care Time: Yes Total Critical Care Time: 60 Attestation: multiple nebs/iv lasix/severe hypoxia Discharge Plan Discharge Clinical Impression: COPD exacerbation, CHF (congestive heart failure) Patient Disposition: Admitted As Inpatient
[2023-10-06] MEDS: Albuterol Sulfate 7.5 MG, Albuterol/Iprat 2.5/0.5MG 3 ML 3 ML INHALE (07:31)
[2023-10-06] MEDS: methylPREDNISolone Sod Succ 125 MG/2 ML VIAL IVPUSH (07:32)
[2023-10-06 08:03] LABS: VBG Base Excess 15.5 mmol/L; VBG HCO3 46 mmol/L (22-26); VBG pCO2 80 mmHg; VBG pH 7.36 (7.32-7.43); VBG pO2 59 mmHg
[2023-10-06 08:03] LABS: MANUAL DIFF FLAG NO
[2023-10-06 08:04] LABS: Basophils Absolute Auto 0.1 X10*3/uL (0.0-0.2); Basophils Percent Auto 0.5 % (0-2); Eosinophils Absolute Auto 0.1 X10*3/uL (0.0-0.4); Eosinophils Percent Auto 0.5 % (0-4); Hemoglobin 14.9 g/dl (14.0-18.0); Imm Gran Abs Auto 0.06 X10*3/uL (0.00-0.03); Imm Gran Pct Auto 0.5 % (0.0-0.4); Lymphocytes Absolute Auto 1.9 X10*3/uL (1.2-4.9); Lymphocytes Percent Auto 14.6 % (20-40); Mean Corpuscular HGB Conc 29.8 g/dl (31.0-36.0); Mean Corpuscular Hemoglobin 28.4 pg (27.0-33.0); Mean Corpuscular Volume 95.2 fL (80.0-98.0); Mean Platelet Volume 11.1 fL (9.4-12.4); Monocytes Percent Auto 7.6 % (2-11); Neutrophils Absolute Auto 9.8 x10*3/uL (2.0-8.3); Neutrophils Percent Auto 76.3 % (45-73); Platelet Count 179 X10*3/uL (160-400); Red Blood Count 5.25 X10*6/uL (4.60-5.80); Red Cell Distribution Width 16.6 % (11.0-16.0); White Blood Count 12.8 X10*3/uL (4.8-10.8)
[2023-10-06 08:04] LABS: Venous Blood Gas Refer to POC result
[2023-10-06] MEDS: Acetaminophen 325 MG TABLET 975 MG PO (08:09)
[2023-10-06 08:23] LABS: Alanine Aminotransferase 30 U/L (0-40); Albumin Level 3.9 g/dL (3.5-5.0); Alkaline Phosphatase 62 U/L (39-117); Anion Gap 13 (12-20); Aspartate Amino Transferase 25 U/L (5-37); Bilirubin Direct 0.3 mg/dL (0.0-0.5); Bilirubin Total 0.8 mg/dL (0.0-1.0); Blood Urea Nitrogen 16 mg/dL (9-16); Carbon Dioxide 38 mmol/L (22-29); Chloride 95 mmol/L (96-108); Creatinine Clr Calc Pharmacy 162.1; Estimated Glomerular Filt Rate > 60; Glucose Random 102 mg/dL (60-115); Potassium 4.4 mmol/L (3.3-5.1); Sodium 142 mmol/L (135-145)
[2023-10-06 08:23] LABS: Troponin-I High Sensitivity 12.3 ng/L (<3.5-35.0)
[2023-10-06] MEDS: Furosemide 40 MG/4 ML VIAL IVPUSH (09:48)
--- NOTE | 2023-10-06 10:57 | P.HPHOSP_ITS ---
History of Present Illness Date of Service: 10/06/23 Chief Complaint: Shortness Of Breath 62-year-old male with COPD, atrial fibrillation/flutter, hyperthyroidism, obstructive sleep apnea, and morbid obesity presents with one week of progressive shortness of breath. Oxygen saturation drops into the 70s despite supplemental oxygen, prompting ED visit.Workup reveals mild CHF, which is treated with diuretics. COPD exacerbation is also suspected, and the patient is treated with IV steroids and bronchodilators via nebulizer. The patient's overall condition has improved Review of Systems 2 Review of Systems: Gen: no fever Resp: + sob, no cough CV: no chest, + VILLELA, no leg edema GI: No n/v, no abd pain Neuro: No confusion, headache Yes all other systems are reviewed and are negative [facility] Medical History COPD (chronic obstructive pulmonary disease) Chronic diastolic heart failure Acute on chronic diastolic (congestive) heart failure Acute exacerbation of chronic obstructive airways disease Hyperthyroidism Venous insufficiency of both lower extremities Chronic respiratory failure Hx pulmonary embolism Paroxysmal atrial flutter PAF (paroxysmal atrial fibrillation) Lung mass Family History Father Bone cancer Mother COPD (chronic obstructive pulmonary disease) Surgical History H/O cardiac radiofrequency ablation Social History Household Members: Spouse Household Members Other:: Housing: House Do you presently have visiting nurse or other home services: No Unable to assess alcohol history related to: Unknown Alcohol intake: current Alcohol intake frequency: holidays/special occasions only Patient Tobacco Use Status: Former Tobacco user Years Smoked: 30 years Smoked in Last 30 Days: No e-Cigarette/Vaping Use: Never Used Second Hand Smoke Exposure: No Use of substances other than those prescribed or required for medical reasons: No Currently Displaying Signs/Symptoms of Drug Intoxication Withdrawal: No Advance Directives: Yes Advance Directives on File: Yes Advance Directives Date on File: 07/14/23 Do you have thoughts of harming others: None Do you have a plan to hurt others: No Plan Recently lost weight without trying: No Nutrition Risks: No Nutritional Risk Poor oral hygiene: No service: No Current occupational status: employed Cognitive needs: No Hearing needs: No Vision needs: Yes Meds Allergies Allergy/AdvReac Type Severity Reaction Status Date / Time No Known Allergies Allergy Verified 09/23/23 09:56 Home Medications Medication Instructions Recorded Confirmed Last Taken Type albuterol sulfate 90 mcg/actuation 2 puff inhalation QID PRN Wheezing 07/01/22 10/06/23 07/07/23 History aerosol inhaler cholecalciferol (vitamin D3) 25 25 mcg PO BEDTIME 07/01/22 10/06/23 10/05/23 History mcg (1,000 unit) tablet multivitamin 1 tab PO BEDTIME 07/01/22 10/06/23 10/05/23 History tiotropium bromide 2.5 1 puff inhalation BID 07/01/22 10/06/23 10/05/23 History mcg/actuation mist for inhalation (Spiriva Respimat) methimazole 5 mg tablet 2.5 mg PO BEDTIME 04/24/23 10/06/23 10/05/23 History acetaminophen 500 mg tablet 1,000 mg PO Q6H PRN Pain 07/08/23 10/06/23 07/08/23 History azelastine 137 mcg (0.1 %) nasal 2 spray intranasal DAILY PRN 07/08/23 10/06/23 Unknown History spray aerosol Allergy Symptoms budesonide-formoterol HFA 160 2 puff inhalation BID 07/08/23 10/06/23 10/05/23 History mcg-4.5 mcg/actuation aerosol inhaler (Symbicort) metoprolol succinate 100 mg 100 mg PO BEDTIME 07/08/23 10/06/23 10/05/23 History tablet,extended release 24 hr omeprazole magnesium 20 mg 20 mg PO DAILY@0630 07/08/23 10/06/23 10/06/23 History capsule,delayed release roflumilast 500 mcg tablet 500 mcg PO BEDTIME 07/08/23 10/06/23 10/05/23 History thiamine HCl (vitamin B1) 500 mg 500 mg PO BEDTIME 07/08/23 10/06/23 10/05/23 History tablet vitamin E 268 mg (400 unit) capsule 268 mg PO BEDTIME 07/08/23 10/06/23 10/05/23 History CPAP (CPAP Machine/Device) 07/21/23 09/10/23 Unknown History Oxygen Home Use 07/21/23 09/10/23 Unknown History nebulizers 07/21/23 09/10/23 Unknown History apixaban 5 mg tablet (Eliquis) 5 mg PO BID 08/26/23 10/06/23 10/06/23 History furosemide 40 mg tablet 40 mg PO BID edema 08/26/23 10/06/23 10/06/23 History Physical Exam 2 Vital Signs and Narrative: Vital Signs: Last Vital Signs Pulse 80 10/06/23 10:02 Resp 18 10/06/23 10:02 BP 151/77 H 10/06/23 10:02 Pulse Ox 92 10/06/23 10:02 O2 Del Method Nasal Cannula 10/06/23 07:02 O2 Flow Rate 6 10/06/23 10:02 Oxygen Flow Rate 2 10/06/23 07:02 BMI result Body Mass Index 44.8 Const: Other: Constitutional: Alert, in no distress, overweight. Mental Status: Oriented to person, place and time. Eyes: Pupils are equal, round and reactive to light. Ear, Nose and Throat: Oropharynx clear, mucous membranes moist. Ears and nose without eformities. Trachea midline. Respiratory: Clear to auscultation. No wheezing, rales or rhonchi. Cardiovascular: S1 S2 regular. No murmurs, rubs or gallops. Gastrointestinal: Abdomen soft, non-tender, non-distended. Normal bowel sounds.? Neurologic: Cranial nerves II-XII grossly intact. No focal neurological deficits. Moves all extremities spontaneously.? Skin: No rashes or lesions.? Musculoskeletal: No cyanosis or clubbing. Psychiatric: Normal mood and affect? Results Labs 10/06/23 07:59 10/06/23 07:59 Labs: Laboratory Results - last 24 hr 10/06/23 10/06/23 10/06/23 07:43 07:57 07:59 MCV 95.2 MCH 28.4 MCHC 29.8 L RDW 16.6 H Plt Count 179 D MPV 11.1 Immature Gran % (Auto) 0.5 H Neut % (Auto) 76.3 H Lymph % (Auto) 14.6 L [place] % (Auto) 7.6 Eos % (Auto) 0.5 Baso % (Auto) 0.5 Lymph # (Auto) 1.9 [place] # (Auto) 1.0 Eos # (Auto) 0.1 Baso # (Auto) 0.1 Abs Immat Gran (auto) 0.06 H Absolute Neuts (auto) 9.8 H Absolute Nucleated RBC 0.000 Nucleated RBC % (auto) 0.0 VBG pH 7.36 VBG pCO2 80 VBG pO2 59 VBG HCO3 46 H VBG O2 Saturation 84.0 VBG Base Excess 15.5 Anion Gap 13 Estim Creat Clear Calc 162.1 Estimated GFR > 60 Random Glucose 102 Calcium 9.0 D Total Bilirubin 0.8 Direct Bilirubin 0.3 AST 25 ALT 30 Alkaline Phosphatase 62 B-Natriuretic Peptide Cancelled Total Protein 7.0 Albumin 3.9 Imaging Radiologist's Impressions: Impressions Chest X-Ray 10/06/23 08:33 IMPRESSION: Radiographic findings most suggestive of mild CHF. Superimposed viral process is not entirely excluded. Follow-up radiographs recommended status post treatment to ensure improvement/resolution. Assessment and Plan (1) COPD exacerbation: Status: Acute Plan 62-year-old male with history of COPD with chronic hypoxemic respiratory failure on supplemental O2 p.r.n., paroxysmal atrial fibrillation/flutter anticoagulated with Eliquis, hyperthyroidism, obstructive sleep apnea, who is morbidly obese with BMI admitted for acute on chronic hypoxemic hypercapnic respiratory failure secondary to COPD exacerbation and acute congestive heart failure exacerbation. # Acute on chronic hypoxemic hypercapnic respiratory failure -due to COPD exacerbation and CHF exacerbation -VBG reassuring, pH normal. PCO2 around at 80 -Continue supplemental O2 prn to maintain oximetry 88-90% # Acute COPD exacerbation -40 mg IV methylprednisolone b.i.d. -DuoNebs q.4h while awake -albuterol q.2h p.r.n. -continue maintenance medications -Use CPAP # Acute on chronic diastolic heart failure exacerbation, IV diureticts # paroxysmal atrial fibrillation/flutter-rate controlled -continue Eliquis -continue multaq, metoprolol, diltiazem # hyperthyroidism -continue methimazole #History PE -continue eliquis # obstructive sleep apnea -CPAP at bedtime # morbid obesity -weight loss efforts encouraged DVT prophylaxis-Eliquis Full code Patient requires inpatient stay at least 2 midnights for management of acute on chronic hypoxemic hypercapnic respiratory failure secondary to COPD exacerbation and CHF exacerbation requiring IV steroids, supplemental O2, and IV diuresis as well as close monitoring to prevent decompensation. Quality Stroke Does the patient have a stroke diagnosis?: No VTE Prior VTE?: No VTE Risk Level:: Medical - moderate - high VTE Device Contraindication: Treatment Not Indicated VTE Drug Contraindication: N/A - Med Ordered
--- NOTE | 2023-10-06 11:33 | PHA.MEDREC ---
Pharmacy Consult ? Medication Reconciliation Pharmacy has completed the medication reconciliation. Spoke to patient and verified medication list.
[2023-10-06 13:07] LABS: B Type Natriuretic Peptide 69 pg/mL (<100)
[2023-10-06 13:57] LABS: Adenovirus PCR Not Detected (Not Detect.); Bordetella parapertussis PCR Not Detected (Not Detect.); Bordetella pertussis PCR Not Detected (Not Detect.); Chlamydia pneumoniae PCR Not Detected (Not Detect.); Coronavirus 229E PCR Not Detected (Not Detect.); Coronavirus HKU1 PCR Not Detected (Not Detect.); Coronavirus NL63 PCR Not Detected (Not Detect.); Coronavirus OC43 PCR Not Detected (Not Detect.); Human metapneumovirus PCR Not Detected (Not Detect.); Influenza A PCR Not Detected (Not Detect.); Influenza B PCR Not Detected (Not Detect.); Mycoplasma pneumoniae PCR Not Detected (Not Detect.); Parainfluenza 1 PCR Not Detected (Not Detect.); Parainfluenza 2 PCR Not Detected (Not Detect.); Parainfluenza 3 PCR Not Detected (Not Detect.); Parainfluenza 4 PCR Not Detected (Not Detect.); RSV PCR Not Detected (Not Detect.); Rhino/Enterovirus PCR Detected (Not Detect.); SARS-CoV-2 PCR Not Detected (Not Detect.)
[2023-10-06] MEDS: Albuterol/Iprat 2.5/0.5MG 3 ML AMPUL.NEB INHALE ×2 (15:15→19:39)
[2023-10-06] MEDS: 0.9 % Sodium Chloride Flush 3 ML SYRINGE IVFLUSH ×2 (15:28→20:47)
[2023-10-06] MEDS: Acetaminophen 325 MG TABLET 650 MG PO (18:37)
[2023-10-06] MEDS: methylPREDNISolone Sod Succ 40 MG/ML VIAL IVPUSH (20:46)
[2023-10-06] MEDS: dilTIAZem HCL CD 240 MG CAP.ER.DEG PO (20:47)
[2023-10-06] MEDS: Apixaban 5 MG TABLET PO (20:47)
[2023-10-06] MEDS: methIMAzole 5 MG TABLET 2.5 MG PO (20:47)
[2023-10-06] MEDS: Thiamine HCL 100 MG TABLET 500 MG PO (20:47)
[2023-10-06] MEDS: Metoprolol Succinate ER 100 MG TAB.ER.24H PO (20:48)
[2023-10-06] MEDS: Cholecalciferol (Vitamin D3) 25 MCG TABLET PO (20:48)
[2023-10-06] MEDS: Roflumilast 500 MCG TABLET PO (20:48)
[2023-10-06] MEDS: Dronedarone HCl 400 MG TABLET PO (20:48)
[2023-10-06] MEDS: Multivitamin TABLET 1 TAB PO (20:48)
[2023-10-06] MEDS: Furosemide 40 MG TABLET PO (20:48)
[2023-10-07] VITALS (9 sets, daily range): BP systolic 119–145; BP diastolic 63–77; PULSE 61–78; RESP 16–20; TEMP 36.3–37.1; O2SAT 90–95
--- NOTE | 2023-10-07 | ECG_ITS ---
Test Reason : high heart rate Blood Pressure : / mmHG Vent. Rate : 078 BPM Atrial Rate : 078 BPM P-R Int : 182 ms QRS Dur : 106 ms QT Int : 374 ms P-R-T Axes : 014 -28 054 degrees QTc Int : 426 ms Normal sinus rhythm Intra-ventricular conduction delay Inferior infarct (cited on or before 01-JUL-2022) Abnormal ECG When compared with ECG of 06-OCT-2023 07:25, No significant change was found Referred By: Gautam Laboy Electronically Signed By:BIJU PELAYO MD
--- NOTE | 2023-10-07 04:35 | PC.NURSE ---
Pt still had fluctuating O2 sats down to l0w 80s, with his BiPAP machine on, with O2 at 7L/min, RT was updated and and came increased O2 at 10 L, O2 sats still dipping to the low 80s most of the time , O2 increased to 12L/min as per RT, Dr. Dennison was made aware.
[2023-10-07] MEDS: Omeprazole 20 MG CAPSULE.DR PO (05:41)
[2023-10-07] MEDS: Albuterol Sulfate (0.083%) 2.5 MG/3 ML VIAL.NEB INHALE ×2 (07:58→19:25)
[2023-10-07] MEDS: Fluticasone/Vilanterol 200/25 BLST.W.DEV 1 PUFF INHALE (07:58)
--- NOTE | 2023-10-07 08:31 | MHC.CM.PN ---
CM met with Patient at bedside. Patient lives in a house with his /HCP/Lissy and he required no DME [employer]; he is still working. Home/resume home O2 from [facility] is the goal and CM has initiated and will follow for dc planning. PCP is Dr. Alea Hull.
[2023-10-07] MEDS: Furosemide 40 MG TABLET PO ×2 (09:23→17:19)
[2023-10-07] MEDS: Apixaban 5 MG TABLET PO ×2 (09:23→21:09)
[2023-10-07] MEDS: methylPREDNISolone Sod Succ 40 MG/ML VIAL IVPUSH ×2 (09:23→21:11)
[2023-10-07] MEDS: Dronedarone HCl 400 MG TABLET PO ×2 (09:23→21:10)
[2023-10-07] MEDS: 0.9 % Sodium Chloride Flush 3 ML SYRINGE IVFLUSH ×3 (09:23→21:14)
--- NOTE | 2023-10-07 09:30 | P.PNIM_ITS ---
Subjective Subjective Date of Service: 10/07/23 Interval History: f/u on acute hypoxic resp failure , + rhinovirus, overall feels better Physical Exam 2 Vital Signs: Vital Signs: Last Vital Signs Temp 97.8 F 10/07/23 07:22 Pulse 62 10/07/23 08:00 Resp 18 10/07/23 08:00 BP 140/73 H 10/07/23 07:22 Pulse Ox 93 10/07/23 07:22 O2 Del Method Nasal Cannula 10/07/23 07:22 O2 Flow Rate 6 10/07/23 07:22 Oxygen Flow Rate 2 10/06/23 07:02 BMI result Body Mass Index 44.8 Const: Other: General: AO X 3, no acute distress Resp: scatttered wheezes CVS: S1,S2,RRR GI: +BS, NT, no distention Skin: No rash Neuro: motor grossly intact Psych: appropriate affect Objective Data Active Medications Acetaminophen (Acetaminophen 325 Mg Tablet) 650 mg PO Q6H PRN PRN Reason: Pain, Mild (Pain Scale 1-3) Last Admin: 10/06/23 18:37 Dose: 650 mg Documented By: MARIN Acetaminophen (Acetaminophen 325 Mg Tablet) 975 mg PO Q6H PRN PRN Reason: Pain Albuterol Sulfate (Albuterol Sulfate (0.083%) 2.5 Mg/3 Ml Vial.Neb) 2.5 mg INHALE BID [facility] Last Admin: 10/07/23 07:58 Dose: 2.5 mg Documented By: ALESIA Albuterol Sulfate (Albuterol Sulfate 90 Mcg 8 Gm Inhaler) 2 puff INHALE QID PRN PRN Reason: Wheezing Albuterol Sulfate (Albuterol Sulfate (0.083%) 2.5 Mg/3 Ml Vial.Neb) 2.5 mg INHALE Q2H PRN PRN Reason: Shortness of Breath/Wheezing Albuterol/Ipratropium (Albuterol/Iprat 2.5/0.5mg 3 Ml Ampul.Neb) 3 ml INHALE RQ4H WHILE AWAKE [facility] Last Admin: 10/07/23 08:06 Dose: Not Given Documented By: ALESIA Non-Admin Reason: Duplicate Order Apixaban (Apixaban 5 Mg Tablet) 5 mg PO BID [facility] Last Admin: 10/07/23 09:23 Dose: 5 mg Documented By: MADELEINE Azelastine HCl (Azelastine Hcl Nasal 137 Mcg/[place] 30 Ml) 2 spray NOSTRIL-B DAILY PRN PRN Reason: Allergy Symptoms Diltiazem HCl (Diltiazem Hcl Cd 240 Mg Cap.Er.Deg) 240 mg PO BEDTIME JIMMY; Protocol Last Admin: 10/06/23 20:47 Dose: 240 mg Documented By: THOM Comments: BP 152/73 H 85 Dronedarone (Dronedarone Hcl 400 Mg Tablet) 400 mg PO BID [facility] Last Admin: 10/07/23 09:23 Dose: 400 mg Documented By: MADELEINE Fluticasone/Vilanterol (Fluticasone/Vilanterol 200/25 Blst.W.Dev) 1 puff INHALE RDAILY [facility] Last Admin: 10/07/23 07:58 Dose: 1 puff Documented By: ALESIA Furosemide (Furosemide 40 Mg Tablet) 40 mg PO BID@0900,1800 [facility]; Protocol Last Admin: 10/07/23 09:23 Dose: 40 mg Documented By: MADELEINE Guaifenesin/Codeine Phosphate (Guaifen/Codeine Sf 200/20/10ml 10 Ml Liquid) 5 ml PO Q6H [facility] Last Admin: 10/07/23 09:28 Dose: Not Given Documented By: MADELEINE Non-Admin Reason: Patient Refused Melatonin (Melatonin 3 Mg Tablet) 6 mg PO BEDTIME PRN PRN Reason: Insomnia Methimazole (Methimazole 5 Mg Tablet) 2.5 mg PO BEDTIME JIMMY Last Admin: 10/06/23 20:47 Dose: 2.5 mg Documented By: THOM Methylprednisolone Sodium Succinate (Methylprednisolone Sod Succ 40 Mg/Ml Vial) 40 mg IVPUSH BID [facility] Last Admin: 10/07/23 09:23 Dose: 40 mg Documented By: MADELEINE Metoprolol Succinate (Metoprolol Succinate Er 100 Mg Tab.Er.24h) 100 mg PO BEDTIME JIMMY; Protocol Last Admin: 10/06/23 20:48 Dose: 100 mg Documented By: THOM Comments: BP 152/73 H 85 Multivitamins/Vitamin C (Multivitamin Tablet) 1 tab PO BEDTIME JIMMY Last Admin: 10/06/23 20:48 Dose: 1 tab Documented By: THOM Omeprazole (Omeprazole 20 Mg Capsule.Dr) 20 mg PO DAILY@0630 [facility] Last Admin: 10/07/23 05:41 Dose: 20 mg Documented By: THOM Ondansetron HCl (Ondansetron Hcl 4 Mg/2 Ml Vial) 4 mg IVPUSH Q8H PRN PRN Reason: Nausea and Vomiting Roflumilast (Roflumilast 500 Mcg Tablet) 500 mcg PO BEDTIME [facility] Last Admin: 10/06/23 20:48 Dose: 500 mcg Documented By: THOM Sodium Chloride (0.9 % Sodium Chloride Flush 3 Ml Syringe) 3 ml IVFLUSH QSHIFT [facility] Last Admin: 10/07/23 09:23 Dose: 3 ml Documented By: MADELEINE Thiamine HCl (Thiamine Hcl 100 Mg Tablet) 500 mg PO BEDTIME [facility] Last Admin: 10/06/23 20:47 Dose: 500 mg Documented By: THOM Tiotropium [place] (Tiotropium [place] 2.5 Mcg Inhaler) 1 puff INHALE RBID [facility] Last Admin: 10/07/23 08:05 Dose: 1 puff Documented By: ALESIA Vitamin D (Cholecalciferol (Vitamin D3) 25 Mcg Tablet) 25 mcg PO BEDTIME [facility] Last Admin: 10/06/23 20:48 Dose: 25 mcg Documented By: THOM Labs 10/06/23 07:59 10/06/23 07:59 Labs: Laboratory Results - last 24 hr 10/06/23 10/06/23 11:22 11:43 B-Natriuretic Peptide 69 Respiratory Panel Rodriguez See Note Adenovirus (Rapid PCR) Not Detected B.pert (TEM-PCR) Not Detected B.parapertussis DNA PCR Not Detected C. pneumoniae DNA (PCR) Not Detected Coronavirus OC43 (PCR) Not Detected Coronavirus HKU1 (PCR) Not Detected Coronavirus 229E (PCR) Not Detected Coronavirus NL63 (PCR) Not Detected Human Metapneumovir PCR Not Detected Influenza A (RT-PCR) Not Detected Influenza B (RT-PCR) Not Detected M. pneumoniae (PCR) Not Detected Parainfluenza 1 (PCR) Not Detected Parainfluenza 2 (PCR) Not Detected Parainfluenza 3 (PCR) Not Detected Parainfluenza 4 (PCR) Not Detected RSV (PCR) Not Detected Entero/Rhino (PCR) Detected A SARS-CoV-2 RNA (RT-PCR) Not Detected Assessment and Plan (1) COPD exacerbation: Status: Acute (2) Rhinovirus: Status: Acute Plan 62-year-old male with history of COPD with chronic hypoxemic respiratory failure on supplemental O2 p.r.n., paroxysmal atrial fibrillation/flutter anticoagulated with Eliquis, hyperthyroidism, obstructive sleep apnea, who is morbidly obese with BMI admitted for acute on chronic hypoxemic hypercapnic respiratory failure secondary to COPD exacerbation and acute congestive heart failure exacerbation. # Acute on chronic hypoxemic hypercapnic respiratory failure now appear to be most likely from rhinovirus infection causing exacerbation of copd -continue bronchodilators, IV steroid, pulmonology consult # Acute on chronic diastolic heart failure exacerbation, treated with IV diuretics overnight, appear compensated, change to home oral Lasix 40 bid # paroxysmal atrial fibrillation/flutter-rate controlled -continue Eliquis -continue multaq, metoprolol, diltiazem # hyperthyroidism -continue methimazole #History PE -continue eliquis # obstructive sleep apnea -CPAP at bedtime, patient is saying he is requiring more O2 for cpapa, pulmonology consult to look into it # morbid obesity -weight loss efforts encouraged DVT prophylaxis-Eliquis Full code Need for inpatient for management of acute on chronic hypoxemic hypercapnic respiratory failure secondary to COPD exacerbation and CHF exacerbation requiring IV steroids, supplemental O2, and IV diuresis as well as close monitoring to prevent decompensation. Quality Stroke Does the patient have a stroke diagnosis?: No VTE Prior VTE?: No VTE Risk Level:: Medical - moderate - high VTE Device Contraindication: Treatment Not Indicated VTE Drug Contraindication: N/A - Med Ordered
[2023-10-07] MEDS: Albuterol/Iprat 2.5/0.5MG 3 ML AMPUL.NEB INHALE ×2 (11:20→15:19)
[2023-10-07] MEDS: Cholecalciferol (Vitamin D3) 25 MCG TABLET PO (21:08)
[2023-10-07] MEDS: Thiamine HCL 100 MG TABLET 500 MG PO (21:08)
[2023-10-07] MEDS: Metoprolol Succinate ER 100 MG TAB.ER.24H PO (21:09)
[2023-10-07] MEDS: Roflumilast 500 MCG TABLET PO (21:09)
[2023-10-07] MEDS: Multivitamin TABLET 1 TAB PO (21:10)
[2023-10-07] MEDS: methIMAzole 5 MG TABLET 2.5 MG PO (21:10)
[2023-10-07] MEDS: dilTIAZem HCL CD 240 MG CAP.ER.DEG PO (21:11)
[2023-10-08] VITALS (10 sets, daily range): BP systolic 113–162; BP diastolic 62–88; PULSE 57–67; RESP 16–20; TEMP 36.1–36.7; O2SAT 90–97
[2023-10-08] MEDS: Omeprazole 20 MG CAPSULE.DR PO (06:30)
[2023-10-08] MEDS: Fluticasone/Vilanterol 200/25 BLST.W.DEV 1 PUFF INHALE (07:51)
[2023-10-08] MEDS: Albuterol/Iprat 2.5/0.5MG 3 ML AMPUL.NEB INHALE ×3 (07:51→19:26)
[2023-10-08] MEDS: Furosemide 40 MG TABLET PO ×2 (10:15→17:17)
[2023-10-08] MEDS: methylPREDNISolone Sod Succ 40 MG/ML VIAL IVPUSH ×2 (10:15→21:08)
[2023-10-08] MEDS: Apixaban 5 MG TABLET PO ×2 (10:15→20:58)
[2023-10-08] MEDS: Dronedarone HCl 400 MG TABLET PO ×2 (10:16→20:59)
[2023-10-08] MEDS: 0.9 % Sodium Chloride Flush 3 ML SYRINGE IVFLUSH ×4 (10:16→21:08)
[2023-10-08] MEDS: acetaZOLAMIDE 250 MG TABLET PO ×2 (12:04→20:58)
--- NOTE | 2023-10-08 13:13 | HO.PM.IMPN ---
Subjective Subjective Date of Service: 10/08/23 Interval History: Overall better, but not optimal but feel like he's getting better Physical Exam Vital Signs: Vital Signs: Last Vital Signs Temp 97.4 F 10/08/23 11:02 Pulse 66 10/08/23 11:49 Resp 16 10/08/23 11:49 BP 155/83 H 10/08/23 11:02 Pulse Ox 91 L 10/08/23 11:02 O2 Del Method Nasal Cannula 10/08/23 11:02 O2 Flow Rate 4 10/08/23 11:02 Oxygen Flow Rate 2 10/06/23 07:02 BMI result Body Mass Index 44.8 Const: Other: General: AO X 3, no acute distress Resp: scatttered wheezes CVS: S1,S2,RRR GI: +BS, NT, no distention Skin: No rash Neuro: motor grossly intact Psych: appropriate affect Objective Data Active Medications Acetaminophen (Acetaminophen 325 Mg Tablet) 650 mg PO Q6H PRN PRN Reason: Pain, Mild (Pain Scale 1-3) Last Admin: 10/06/23 18:37 Dose: 650 mg Documented By: MARIN Acetaminophen (Acetaminophen 325 Mg Tablet) 975 mg PO Q6H PRN PRN Reason: Pain Acetazolamide (Acetazolamide 250 Mg Tablet) 250 mg PO BID [facility] Stop: 10/09/23 21:01 Last Admin: 10/08/23 12:04 Dose: 250 mg Documented By: VIVIENNE Albuterol Sulfate (Albuterol Sulfate (0.083%) 2.5 Mg/3 Ml Vial.Neb) 2.5 mg INHALE BID [facility] Last Admin: 10/08/23 07:54 Dose: Not Given Documented By: LUDMILA Non-Admin Reason: Duplicate Order Albuterol Sulfate (Albuterol Sulfate 90 Mcg 8 Gm Inhaler) 2 puff INHALE QID PRN PRN Reason: Wheezing Albuterol Sulfate (Albuterol Sulfate (0.083%) 2.5 Mg/3 Ml Vial.Neb) 2.5 mg INHALE Q2H PRN PRN Reason: Shortness of Breath/Wheezing Albuterol/Ipratropium (Albuterol/Iprat 2.5/0.5mg 3 Ml Ampul.Neb) 3 ml INHALE RQ4H WHILE AWAKE [facility] Last Admin: 10/08/23 11:48 Dose: 3 ml Documented By: LUDMILA Apixaban (Apixaban 5 Mg Tablet) 5 mg PO BID [facility] Last Admin: 10/08/23 10:15 Dose: 5 mg Documented By: VIVIENNE Azelastine HCl (Azelastine Hcl Nasal 137 Mcg/[place] 30 Ml) 2 spray NOSTRIL-B DAILY PRN PRN Reason: Allergy Symptoms Diltiazem HCl (Diltiazem Hcl Cd 240 Mg Cap.Er.Deg) 240 mg PO BEDTIME JIMMY; Protocol Last Admin: 10/07/23 21:11 Dose: 240 mg Documented By: DALIA Dronedarone (Dronedarone Hcl 400 Mg Tablet) 400 mg PO BID [facility] Last Admin: 10/08/23 10:16 Dose: 400 mg Documented By: VIVIENNE Fluticasone/Vilanterol (Fluticasone/Vilanterol 200/25 Blst.W.Dev) 1 puff INHALE RDAILY [facility] Last Admin: 10/08/23 07:51 Dose: 1 puff Documented By: LUDMILA Furosemide (Furosemide 40 Mg Tablet) 40 mg PO BID@0900,1800 [facility]; Protocol Last Admin: 10/08/23 10:15 Dose: 40 mg Documented By: VIVIENNE Guaifenesin/Codeine Phosphate (Guaifen/Codeine Sf 200/20/10ml 10 Ml Liquid) 5 ml PO Q6H [facility] Last Admin: 10/08/23 09:51 Dose: Not Given Documented By: VIVIENNE Non-Admin Reason: Patient Refused Melatonin (Melatonin 3 Mg Tablet) 6 mg PO BEDTIME PRN PRN Reason: Insomnia Methimazole (Methimazole 5 Mg Tablet) 2.5 mg PO BEDTIME [facility] Last Admin: 10/07/23 21:10 Dose: 2.5 mg Documented By: DALIA Methylprednisolone Sodium Succinate (Methylprednisolone Sod Succ 40 Mg/Ml Vial) 40 mg IVPUSH BID [facility] Last Admin: 10/08/23 10:15 Dose: 40 mg Documented By: VIVIENNE Metoprolol Succinate (Metoprolol Succinate Er 100 Mg Tab.Er.24h) 100 mg PO BEDTIME [facility]; Protocol Last Admin: 10/07/23 21:09 Dose: 100 mg Documented By: DALIA Multivitamins/Vitamin C (Multivitamin Tablet) 1 tab PO BEDTIME [facility] Last Admin: 10/07/23 21:10 Dose: 1 tab Documented By: DALIA Omeprazole (Omeprazole 20 Mg Capsule.Dr) 20 mg PO DAILY@0630 [facility] Last Admin: 10/08/23 06:30 Dose: 20 mg Documented By: DALIA Ondansetron HCl (Ondansetron Hcl 4 Mg/2 Ml Vial) 4 mg IVPUSH Q8H PRN PRN Reason: Nausea and Vomiting Roflumilast (Roflumilast 500 Mcg Tablet) 500 mcg PO BEDTIME [facility] Last Admin: 10/07/23 21:09 Dose: 500 mcg Documented By: DALIA Sodium Chloride (0.9 % Sodium Chloride Flush 3 Ml Syringe) 3 ml IVFLUSH QSHIFT [facility] Last Admin: 10/08/23 10:16 Dose: 3 ml Documented By: VIVIENNE Thiamine HCl (Thiamine Hcl 100 Mg Tablet) 500 mg PO BEDTIME [facility] Last Admin: 10/07/23 21:08 Dose: 500 mg Documented By: DALIA Tiotropium [place] (Tiotropium [place] 2.5 Mcg Inhaler) 1 puff INHALE RBID [facility] Last Admin: 10/08/23 07:51 Dose: 1 puff Documented By: LUDMILA Vitamin D (Cholecalciferol (Vitamin D3) 25 Mcg Tablet) 25 mcg PO BEDTIME [facility] Last Admin: 10/07/23 21:08 Dose: 25 mcg Documented By: DALIA Labs 10/06/23 07:59 10/06/23 07:59 Microbiology Microbiology Results: Microbiology 10/06/23 07:59 Blood Culture - Preliminary Blood - Venous No growth after 48 hours. 10/06/23 07:59 Blood Culture - Preliminary Blood - Venous No growth after 48 hours. Assessment and Plan (1) COPD exacerbation: Status: Acute (2) Rhinovirus: Status: Acute Plan 62-year-old male with history of COPD with chronic hypoxemic respiratory failure on supplemental O2 p.r.n., paroxysmal atrial fibrillation/flutter anticoagulated with Eliquis, hyperthyroidism, obstructive sleep apnea, who is morbidly obese with BMI admitted for acute on chronic hypoxemic hypercapnic respiratory failure secondary to COPD exacerbation and acute congestive heart failure exacerbation. # Acute on chronic hypoxemic hypercapnic respiratory failure now appear to be most likely from rhinovirus infection causing exacerbation of copd -continue bronchodilators, IV steroid, pulmonology consult # Acute on chronic diastolic heart failure exacerbation, treated with IV diuretics overnight, appear compensated, changed to home oral Lasix 40 bid adding Diamox for metabolic alkalosis with CO2 retention # paroxysmal atrial fibrillation/flutter-rate controlled -continue Eliquis -continue multaq, metoprolol, diltiazem # hyperthyroidism -continue methimazole #History PE -continue eliquis # obstructive sleep apnea -CPAP at bedtime, patient is saying he is requiring more O2 for cpapa, pulmonology consult to look into it # morbid obesity -weight loss efforts encouraged DVT prophylaxis-Eliquis Full code Need for inpatient for management of acute on chronic hypoxemic hypercapnic respiratory failure secondary to COPD exacerbation and CHF exacerbation requiring IV steroids, supplemental O2, and IV diuresis as well as close monitoring to prevent decompensation. Quality Stroke Does the patient have a stroke diagnosis?: No VTE Prior VTE?: No VTE Risk Level:: Medical - moderate - high VTE Device Contraindication: Treatment Not Indicated VTE Drug Contraindication: N/A - Med Ordered
--- NOTE | 2023-10-08 16:38 | PM.CNPUL ---
History of Present Illness History of Present Illness Consult date: 10/08/23 Reason for consult: dyspnea, COPD, obstructive sleep apnea and other (resp.failure ) Chief complaint: COPD CHF Narrative: Pulmonary consultation: I have seen this gentleman this morning. He is admitted with about 1 weeks history of progressive shortness of breath, and increased oxygen requirement. Denies fever or chills. Also denies any chest pain. Past medical history reviewed from the medical records and also discussed with the patient, includes: Morbid obesity, DEVIN/ Hypoventilation syndrome, chronic respiratory failure, atrial fibrillation/flutter, congestive heart failure. This patient has been on CPAP therapy for the past many years, but recently he is on home respirator ( ASTRAL-150 ) He was doing fairly well, and using his home respirator every night for about 6-8 hours. Also has O2, at home using 2.5 L/minute along with the respirator. 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 In addition to his the sleep apnea and hypoventilation syndrome, , due to morbid obesity he is also known to have paroxysmal atrial flutter, congestive heart failure, chronic obstructive pulmonary disease, History of pulmonary embolism, venous insufficiency of lower extremities. Review of Systems Review of Systems: His main problem at this time is increased shortness of breath and general weakness. Yes all other systems are reviewed and are negative PMFSH Past Medical History Medical History (Updated 10/08/23 @ 16:55 by Charles Rush MD) Hypoventilation associated with obesity syndrome DEVIN (obstructive sleep apnea) COPD (chronic obstructive pulmonary disease) Chronic diastolic heart failure Acute on chronic diastolic (congestive) heart failure Acute exacerbation of chronic obstructive airways disease Hyperthyroidism Venous insufficiency of both lower extremities Chronic respiratory failure Hx pulmonary embolism Paroxysmal atrial flutter PAF (paroxysmal atrial fibrillation) Lung mass Family History Family History Father Bone cancer Mother COPD (chronic obstructive pulmonary disease) Surgical History Surgical History H/O cardiac radiofrequency ablation Social History Social History Household Members: Spouse Household Members Other:: Housing: House Do you presently have visiting nurse or other home services: No Unable to assess alcohol history related to: Unknown Alcohol intake: current Alcohol intake frequency: holidays/special occasions only Patient Tobacco Use Status: Former Tobacco user Years Smoked: 30 years Smoked in Last 30 Days: No e-Cigarette/Vaping Use: Never Used Second Hand Smoke Exposure: No Use of substances other than those prescribed or required for medical reasons: No Currently Displaying Signs/Symptoms of Drug Intoxication Withdrawal: No Advance Directives: Yes Advance Directives on File: Yes Advance Directives Date on File: 07/14/23 Do you have thoughts of harming others: None Do you have a plan to hurt others: No Plan Recently lost weight without trying: No Nutrition Risks: No Nutritional Risk Poor oral hygiene: No service: No Current occupational status: employed Cognitive needs: No Hearing needs: No Vision needs: Yes Meds Allergies Allergy/AdvReac Type Severity Reaction Status Date / Time No Known Allergies Allergy Verified 09/23/23 09:56 Active Medications: Current Medications Acetaminophen (Acetaminophen 325 Mg Tablet) 650 mg PO Q6H PRN PRN Reason: Pain, Mild (Pain Scale 1-3) Last Admin: 10/06/23 18:37 Dose: 650 mg Acetaminophen (Acetaminophen 325 Mg Tablet) 975 mg PO Q6H PRN PRN Reason: Pain Acetazolamide (Acetazolamide 250 Mg Tablet) 250 mg PO BID [facility] Stop: 10/09/23 21:01 Last Admin: 10/08/23 12:04 Dose: 250 mg Albuterol Sulfate (Albuterol Sulfate (0.083%) 2.5 Mg/3 Ml Vial.Neb) 2.5 mg INHALE BID [facility] Last Admin: 10/08/23 07:54 Dose: Not Given Albuterol Sulfate (Albuterol Sulfate 90 Mcg 8 Gm Inhaler) 2 puff INHALE QID PRN PRN Reason: Wheezing Albuterol Sulfate (Albuterol Sulfate (0.083%) 2.5 Mg/3 Ml Vial.Neb) 2.5 mg INHALE Q2H PRN PRN Reason: Shortness of Breath/Wheezing Albuterol/Ipratropium (Albuterol/Iprat 2.5/0.5mg 3 Ml Ampul.Neb) 3 ml INHALE RQ4H WHILE AWAKE [facility] Last Admin: 10/08/23 15:39 Dose: Not Given Apixaban (Apixaban 5 Mg Tablet) 5 mg PO BID [facility] Last Admin: 10/08/23 10:15 Dose: 5 mg Azelastine HCl (Azelastine Hcl Nasal 137 Mcg/[place] 30 Ml) 2 spray NOSTRIL-B DAILY PRN PRN Reason: Allergy Symptoms Diltiazem HCl (Diltiazem Hcl Cd 240 Mg Cap.Er.Deg) 240 mg PO BEDTIME [facility]; Protocol Last Admin: 10/07/23 21:11 Dose: 240 mg Dronedarone (Dronedarone Hcl 400 Mg Tablet) 400 mg PO BID [facility] Last Admin: 10/08/23 10:16 Dose: 400 mg Fluticasone/Vilanterol (Fluticasone/Vilanterol 200/25 Blst.W.Dev) 1 puff INHALE RDAILY [facility] Last Admin: 10/08/23 07:51 Dose: 1 puff Furosemide (Furosemide 40 Mg Tablet) 40 mg PO BID@0900,1800 [facility]; Protocol Last Admin: 10/08/23 10:15 Dose: 40 mg Guaifenesin/Codeine Phosphate (Guaifen/Codeine Sf 200/20/10ml 10 Ml Liquid) 5 ml PO Q6H [facility] Last Admin: 10/08/23 15:11 Dose: Not Given Melatonin (Melatonin 3 Mg Tablet) 6 mg PO BEDTIME PRN PRN Reason: Insomnia Methimazole (Methimazole 5 Mg Tablet) 2.5 mg PO BEDTIME [facility] Last Admin: 10/07/23 21:10 Dose: 2.5 mg Methylprednisolone Sodium Succinate (Methylprednisolone Sod Succ 40 Mg/Ml Vial) 40 mg IVPUSH BID [facility] Last Admin: 10/08/23 10:15 Dose: 40 mg Metoprolol Succinate (Metoprolol Succinate Er 100 Mg Tab.Er.24h) 100 mg PO BEDTIME [facility]; Protocol Last Admin: 10/07/23 21:09 Dose: 100 mg Multivitamins/Vitamin C (Multivitamin Tablet) 1 tab PO BEDTIME [facility] Last Admin: 10/07/23 21:10 Dose: 1 tab Omeprazole (Omeprazole 20 Mg Capsule.Dr) 20 mg PO DAILY@0630 [facility] Last Admin: 10/08/23 06:30 Dose: 20 mg Ondansetron HCl (Ondansetron Hcl 4 Mg/2 Ml Vial) 4 mg IVPUSH Q8H PRN PRN Reason: Nausea and Vomiting Roflumilast (Roflumilast 500 Mcg Tablet) 500 mcg PO BEDTIME [facility] Last Admin: 10/07/23 21:09 Dose: 500 mcg Sodium Chloride (0.9 % Sodium Chloride Flush 3 Ml Syringe) 3 ml IVFLUSH QSHIFT [facility] Last Admin: 10/08/23 10:16 Dose: 3 ml Thiamine HCl (Thiamine Hcl 100 Mg Tablet) 500 mg PO BEDTIME [facility] Last Admin: 10/07/23 21:08 Dose: 500 mg Tiotropium [place] (Tiotropium [place] 2.5 Mcg Inhaler) 1 puff INHALE RBID [facility] Last Admin: 10/08/23 07:51 Dose: 1 puff Vitamin D (Cholecalciferol (Vitamin D3) 25 Mcg Tablet) 25 mcg PO BEDTIME [facility] Last Admin: 10/07/23 21:08 Dose: 25 mcg Home Medications Medication Instructions Recorded Confirmed Last Taken Type albuterol sulfate 90 mcg/actuation 2 puff inhalation QID PRN Wheezing 07/01/22 10/06/23 07/07/23 History aerosol inhaler cholecalciferol (vitamin D3) 25 25 mcg PO BEDTIME 07/01/22 10/06/23 10/05/23 History mcg (1,000 unit) tablet multivitamin 1 tab PO BEDTIME 07/01/22 10/06/23 10/05/23 History tiotropium bromide 2.5 1 puff inhalation BID 07/01/22 10/06/23 10/05/23 History mcg/actuation mist for inhalation (Spiriva Respimat) methimazole 5 mg tablet 2.5 mg PO BEDTIME 04/24/23 10/06/23 10/05/23 History acetaminophen 500 mg tablet 1,000 mg PO Q6H PRN Pain 07/08/23 10/06/23 07/08/23 History azelastine 137 mcg (0.1 %) nasal 2 spray intranasal DAILY PRN 07/08/23 10/06/23 Unknown History spray aerosol Allergy Symptoms budesonide-formoterol HFA 160 2 puff inhalation BID 07/08/23 10/06/23 10/05/23 History mcg-4.5 mcg/actuation aerosol inhaler (Symbicort) metoprolol succinate 100 mg 100 mg PO BEDTIME 07/08/23 10/06/23 10/05/23 History tablet,extended release 24 hr omeprazole magnesium 20 mg 20 mg PO DAILY@0630 07/08/23 10/06/23 10/06/23 History capsule,delayed release roflumilast 500 mcg tablet 500 mcg PO BEDTIME 07/08/23 10/06/23 10/05/23 History thiamine HCl (vitamin B1) 500 mg 500 mg PO BEDTIME 07/08/23 10/06/23 10/05/23 History tablet vitamin E 268 mg (400 unit) capsule 268 mg PO BEDTIME 07/08/23 10/06/23 10/05/23 History CPAP (CPAP Machine/Device) 07/21/23 09/10/23 Unknown History Oxygen Home Use 07/21/23 09/10/23 Unknown History nebulizers 07/21/23 09/10/23 Unknown History apixaban 5 mg tablet (Eliquis) 5 mg PO BID 08/26/23 10/06/23 10/06/23 History furosemide 40 mg tablet 40 mg PO BID edema 08/26/23 10/06/23 10/06/23 History Physical Exam Vital Signs: Vital Signs: Last Vital Signs Temp 97.0 F 10/08/23 15:03 Pulse 61 10/08/23 15:03 Resp 20 10/08/23 15:03 BP 148/77 H 10/08/23 15:03 Pulse Ox 91 L 10/08/23 15:03 O2 Del Method Nasal Cannula 10/08/23 15:03 O2 Flow Rate 4 10/08/23 15:03 Oxygen Flow Rate 2 10/06/23 07:02 BMI result Body Mass Index 44.8 Const: Other: He has a round face, short and obese neck, and very crowded oropharynx General: comfortable, no acute distress, alert and awake Orientation/consciousness: patient oriented x3 HEENT: Head: Yes normal to inspection General nose exam: No nasal polyps present and No nasal discharge present Face and sinus: Yes sinuses nontender Mouth: oropharynx abnormals (Crowded and narrow oropharynx, Mallampati scale 4) Throat: Yes posterior oropharynx normal Eyes: General: appearance normal, both eyes and all related structures Neck: Other: Neck is obese Neck: Yes normal visual inspection, Yes no lymphadenopathy, Yes trachea midline and Yes no JVD (No visible venous engorgement) Chest: Chest palpation & inspection: normal inspection of the chest, normal palpation of entire chest wall and no tenderness Resp: Other: Percussion note not perceptible because of obese chest wall. Breath sounds are quite distant especially over the basilar areas, No definite wheezes or. Crepitations are heard Cardio: Palpation: PMI not normal (Not palpable) Rate: regular rate Rhythm: regular rhythm Heart sounds: no gallops and no murmurs GI: Palpation (GI): Soft to palpation, nontender, No hepatosplenomegaly present and no masses Auscultation: normal bowel sounds Back/Spine/Pelvis: Other: Not examined Skin: General skin exam: no rashes or lesions noted Neuro: General: patient oriented x3 and no focal motor deficits Cranial nerves: Yes CN's II-XII intact bilaterally Extrem: General: Yes normal to inspection, Yes no calf tenderness and Yes edema (1 + stasis edema of the legs) Psych: Appearance: grossly normal and well kempt Speech and movement: Normal speech and movement present Results Laboratory Findings 10/06/23 07:59 10/06/23 07:59 Abnormal lab findings: Abnormal Labs 10/06/23 10/06/23 10/06/23 07:57 07:59 11:43 WBC 12.8 H MCHC 29.8 L RDW 16.6 H Immature Gran % (Auto) 0.5 H Neut % (Auto) 76.3 H Lymph % (Auto) 14.6 L Abs Immat Gran (auto) 0.06 H Absolute Neuts (auto) 9.8 H VBG HCO3 46 H Chloride 95 L Carbon Dioxide 38 H Entero/Rhino (PCR) Detected A ABGs PH=7.36 PCO2 80 PO2 59 Microbiology: Microbiology 10/06/23 07:59 Blood - Venous Blood Culture - Preliminary No growth after 48 hours. 10/06/23 07:59 Blood - Venous Blood Culture - Preliminary No growth after 48 hours. Diagnostic Findings Chest x-ray: report reviewed and image reviewed Assessment and Plan (1) Rhinovirus: Status: Acute (2) COPD exacerbation: Status: Acute (3) Venous insufficiency of both lower extremities: Status: Acute (4) Hx pulmonary embolism: Status: Acute (5) Hx of atrial flutter: Status: Acute (6) CHF (congestive heart failure): Status: Acute (7) Obesity: Qualifiers: Obesity type: unspecified obesity type Obesity classification: adult class 3 (BMI >= 40) Serious obesity comorbidity presence: with serious comorbidity Body mass index: BMI 45.0-49.9 Qualified Code(s): E66.01 - Morbid (severe) obesity due to excess calories; Z68.42 - Body mass index [BMI] 45.0-49.9, adult Status: Acute (8) DEVIN (obstructive sleep apnea): Status: Acute (9) Hypoventilation associated with obesity syndrome: Status: Acute Plan This 62 years old gentleman with morbid obesity,DEVIN/Hypoventilation Syndrome ,COPD , and many comorbidities as partially listed above. Is suffering from an acute exacerbation of COPD and chronic respiratory failure, secondary to acute viral bronchitis caused by rhinovirus. This is why he is requiring higher concentration of O2 at present. Recc : I will use Solu-Medrol 40 mg b.i.d. just for 1 or 2 days then with short course of prednisone. Gentle diuresis DuoNeb updrafts q.4 hours while awake. O2 supplementation to keep O2 sat above 90% He should use his respirator ( Astral-150 ) at least for 8 hours daily . In addition to using at night he can use p.r.n. during the daytime if he has any. Respiratory distress ASTRAL SETTINGS ( BACKUP HEART RATE 15 TIDAL VOLUME 455, PS MINIMUM 5 PS MAXIMUM 10 EPAP MINIMUM 7 EPAP MAXIMUM 12 ) ADD ACETAZOLAMIDE 250 MG DAILY. MONITOR WITH VENOUS BGs DAILY. ADD INCENTIVE SPIROMETRY WHICH HE CAN PERFORM EVERY 2-3 HOURS, ALONG WITH WITH PURSED LIP BREATHING EXERCISES. THANK YOU VERY MUCH FOR ASTHMA TO SEE THIS GENTLEMAN AND PARTICIPATING IN MANAGEMENT. Procedures Date of Service Date of Service: 10/08/23
[2023-10-08] MEDS: dilTIAZem HCL CD 240 MG CAP.ER.DEG PO (20:57)
[2023-10-08] MEDS: Cholecalciferol (Vitamin D3) 25 MCG TABLET PO (20:57)
[2023-10-08] MEDS: methIMAzole 5 MG TABLET 2.5 MG PO (20:58)
[2023-10-08] MEDS: Thiamine HCL 100 MG TABLET 500 MG PO (21:05)
[2023-10-08] MEDS: Roflumilast 500 MCG TABLET PO (21:06)
[2023-10-08] MEDS: Multivitamin TABLET 1 TAB PO (21:06)
[2023-10-08] MEDS: Metoprolol Succinate ER 100 MG TAB.ER.24H PO (21:07)
[2023-10-09] VITALS (10 sets, daily range): BP systolic 118–163; BP diastolic 67–79; PULSE 50–82; RESP 18–20; TEMP 36.3–36.9; O2SAT 90–96
[2023-10-09] MEDS: Omeprazole 20 MG CAPSULE.DR PO (06:42)
[2023-10-09] MEDS: Fluticasone/Vilanterol 200/25 BLST.W.DEV 1 PUFF INHALE (07:38)
[2023-10-09] MEDS: Albuterol/Iprat 2.5/0.5MG 3 ML AMPUL.NEB INHALE ×4 (07:38→19:45)
[2023-10-09] MEDS: methylPREDNISolone Sod Succ 40 MG/ML VIAL IVPUSH ×2 (10:22→20:45)
[2023-10-09] MEDS: 0.9 % Sodium Chloride Flush 3 ML SYRINGE IVFLUSH ×2 (10:22→20:45)
[2023-10-09] MEDS: acetaZOLAMIDE 250 MG TABLET PO (10:23)
[2023-10-09] MEDS: Furosemide 40 MG TABLET PO ×2 (10:23→17:46)
[2023-10-09] MEDS: Apixaban 5 MG TABLET PO ×2 (10:23→20:46)
[2023-10-09] MEDS: Dronedarone HCl 400 MG TABLET PO ×2 (10:23→20:47)
--- NOTE | 2023-10-09 11:42 | P.PNIM_ITS ---
Subjective Subjective Date of Service: 10/09/23 Interval History: Continue to improve, still has some cough, but overall feels much better Physical Exam 2 Vital Signs: Vital Signs: Last Vital Signs Temp 97.8 F 10/09/23 11:15 Pulse 64 10/09/23 11:21 Resp 18 10/09/23 11:21 BP 139/73 10/09/23 11:15 Pulse Ox 91 L 10/09/23 11:15 O2 Del Method Nasal Cannula 10/09/23 11:15 O2 Flow Rate 2 10/09/23 11:15 Oxygen Flow Rate 2 10/06/23 07:02 BMI result Body Mass Index 44.8 Objective Data Active Medications Acetaminophen (Acetaminophen 325 Mg Tablet) 650 mg PO Q6H PRN PRN Reason: Pain, Mild (Pain Scale 1-3) Last Admin: 10/06/23 18:37 Dose: 650 mg Documented By: MARIN Acetaminophen (Acetaminophen 325 Mg Tablet) 975 mg PO Q6H PRN PRN Reason: Pain Acetazolamide (Acetazolamide 250 Mg Tablet) 250 mg PO BID [facility] Stop: 10/09/23 21:01 Last Admin: 10/09/23 10:23 Dose: 250 mg Documented By: FOUZIA Albuterol Sulfate (Albuterol Sulfate (0.083%) 2.5 Mg/3 Ml Vial.Neb) 2.5 mg INHALE BID [facility] Last Admin: 10/09/23 07:41 Dose: Not Given Documented By: GONZALO Non-Admin Reason: Duplicate Order Albuterol Sulfate (Albuterol Sulfate 90 Mcg 8 Gm Inhaler) 2 puff INHALE QID PRN PRN Reason: Wheezing Albuterol Sulfate (Albuterol Sulfate (0.083%) 2.5 Mg/3 Ml Vial.Neb) 2.5 mg INHALE Q2H PRN PRN Reason: Shortness of Breath/Wheezing Albuterol/Ipratropium (Albuterol/Iprat 2.5/0.5mg 3 Ml Ampul.Neb) 3 ml INHALE RQ4H WHILE AWAKE [facility] Last Admin: 10/09/23 11:20 Dose: 3 ml Documented By: GONZALO Apixaban (Apixaban 5 Mg Tablet) 5 mg PO BID [facility] Last Admin: 10/09/23 10:23 Dose: 5 mg Documented By: FOUZIA Azelastine HCl (Azelastine Hcl Nasal 137 Mcg/[place] 30 Ml) 2 spray NOSTRIL-B DAILY PRN PRN Reason: Allergy Symptoms Diltiazem HCl (Diltiazem Hcl Cd 240 Mg Cap.Er.Deg) 240 mg PO BEDTIME [facility]; Protocol Last Admin: 10/08/23 20:57 Dose: 240 mg Documented By: DALIA Dronedarone (Dronedarone Hcl 400 Mg Tablet) 400 mg PO BID [facility] Last Admin: 10/09/23 10:23 Dose: 400 mg Documented By: FOUZIA Fluticasone/Vilanterol (Fluticasone/Vilanterol 200/25 Blst.W.Dev) 1 puff INHALE RDAILY [facility] Last Admin: 10/09/23 07:38 Dose: 1 puff Documented By: GONZALO Furosemide (Furosemide 40 Mg Tablet) 40 mg PO BID@0900,1800 [facility]; Protocol Last Admin: 10/09/23 10:23 Dose: 40 mg Documented By: FOUZIA Guaifenesin/Codeine Phosphate (Guaifen/Codeine Sf 200/20/10ml 10 Ml Liquid) 5 ml PO Q6H [facility] Last Admin: 10/09/23 10:22 Dose: Not Given Documented By: FOUZIA Non-Admin Reason: Patient Refused Melatonin (Melatonin 3 Mg Tablet) 6 mg PO BEDTIME PRN PRN Reason: Insomnia Methimazole (Methimazole 5 Mg Tablet) 2.5 mg PO BEDTIME [facility] Last Admin: 10/08/23 20:58 Dose: 2.5 mg Documented By: DALIA Methylprednisolone Sodium Succinate (Methylprednisolone Sod Succ 40 Mg/Ml Vial) 40 mg IVPUSH BID [facility] Last Admin: 10/09/23 10:22 Dose: 40 mg Documented By: FOUZIA Metoprolol Succinate (Metoprolol Succinate Er 100 Mg Tab.Er.24h) 100 mg PO BEDTIME [facility]; Protocol Last Admin: 10/08/23 21:07 Dose: 100 mg Documented By: DALIA Multivitamins/Vitamin C (Multivitamin Tablet) 1 tab PO BEDTIME [facility] Last Admin: 10/08/23 21:06 Dose: 1 tab Documented By: DALIA Omeprazole (Omeprazole 20 Mg Capsule.) 20 mg PO DAILY@0630 [facility] Last Admin: 10/09/23 06:42 Dose: 20 mg Documented By: DALIA Ondansetron HCl (Ondansetron Hcl 4 Mg/2 Ml Vial) 4 mg IVPUSH Q8H PRN PRN Reason: Nausea and Vomiting Roflumilast (Roflumilast 500 Mcg Tablet) 500 mcg PO BEDTIME [facility] Last Admin: 10/08/23 21:06 Dose: 500 mcg Documented By: DALIA Sodium Chloride (0.9 % Sodium Chloride Flush 3 Ml Syringe) 3 ml IVFLUSH QSHIFT [facility] Last Admin: 10/09/23 10:22 Dose: 3 ml Documented By: FOUZIA Thiamine HCl (Thiamine Hcl 100 Mg Tablet) 500 mg PO BEDTIME [facility] Last Admin: 10/08/23 21:05 Dose: 500 mg Documented By: DALIA Tiotropium [place] (Tiotropium [place] 2.5 Mcg Inhaler) 1 puff INHALE RBID [facility] Last Admin: 10/09/23 07:38 Dose: 1 puff Documented By: GONZALO Vitamin D (Cholecalciferol (Vitamin D3) 25 Mcg Tablet) 25 mcg PO BEDTIME [facility] Last Admin: 10/08/23 20:57 Dose: 25 mcg Documented By: DALIA Labs 10/06/23 07:59 10/06/23 07:59 Microbiology Microbiology Results: Microbiology 10/06/23 07:59 Blood Culture - Preliminary Blood - Venous No growth after 48 hours. 10/06/23 07:59 Blood Culture - Preliminary Blood - Venous No growth after 48 hours. Assessment and Plan (1) COPD exacerbation: Status: Acute (2) Rhinovirus: Status: Acute Plan 62-year-old male with history of COPD with chronic hypoxemic respiratory failure on supplemental O2 p.r.n., paroxysmal atrial fibrillation/flutter anticoagulated with Eliquis, hyperthyroidism, obstructive sleep apnea, who is morbidly obese with BMI admitted for acute on chronic hypoxemic hypercapnic respiratory failure secondary to COPD exacerbation and acute congestive heart failure exacerbation. # Acute on chronic hypoxemic hypercapnic respiratory failure now appear to be most likely from rhinovirus infection causing exacerbation of copd -continue bronchodilators, IV steroid, pulmonology consult noted, change to PO steroid. Continue use of respiratory at night and PRN during the day # Acute on chronic diastolic heart failure exacerbation, treated with IV diuretics overnight, appear compensated, changed to home oral Lasix 40 bid adding Diamox for metabolic alkalosis with CO2 retention # paroxysmal atrial fibrillation/flutter-rate controlled -continue Eliquis -continue multaq, metoprolol, diltiazem # hyperthyroidism -continue methimazole #History PE -continue eliquis # obstructive sleep apnea -CPAP at bedtime, patient is saying he is requiring more O2 for cpapa, pulmonology consult to look into it # morbid obesity -weight loss efforts encouraged DVT prophylaxis-Eliquis Full code Need for inpatient for management of acute on chronic hypoxemic hypercapnic respiratory failure secondary to COPD exacerbation and CHF exacerbation requiring IV steroids, supplemental O2, and IV diuresis as well as close monitoring to prevent decompensation. Discharge tomorrow Quality Stroke Does the patient have a stroke diagnosis?: No VTE Prior VTE?: No VTE Risk Level:: Medical - moderate - high VTE Device Contraindication: Treatment Not Indicated VTE Drug Contraindication: N/A - Med Ordered
[2023-10-09] MEDS: Roflumilast 500 MCG TABLET PO (20:45)
[2023-10-09] MEDS: Multivitamin TABLET 1 TAB PO (20:46)
[2023-10-09] MEDS: Metoprolol Succinate ER 100 MG TAB.ER.24H PO (20:46)
[2023-10-09] MEDS: methIMAzole 5 MG TABLET 2.5 MG PO (20:46)
[2023-10-09] MEDS: Thiamine HCL 100 MG TABLET 500 MG PO (20:46)
[2023-10-09] MEDS: dilTIAZem HCL CD 240 MG CAP.ER.DEG PO (20:47)
[2023-10-09] MEDS: Cholecalciferol (Vitamin D3) 25 MCG TABLET PO (20:47)
[2023-10-10 03:46] VITALS: BP 136/80; PULSE 55; RESP 20; TEMP 36.7; O2SAT 92
[2023-10-10] MEDS: Omeprazole 20 MG CAPSULE.DR PO (06:38)
[2023-10-10 07:26] VITALS: BP 164/80; PULSE 58; RESP 20; TEMP 36.4; O2SAT 95
[2023-10-10] MEDS: Fluticasone/Vilanterol 200/25 BLST.W.DEV 1 PUFF INHALE (08:24)
[2023-10-10] MEDS: Albuterol/Iprat 2.5/0.5MG 3 ML AMPUL.NEB INHALE ×2 (08:24→12:01)
[2023-10-10 08:28] VITALS: PULSE 58; RESP 20
[2023-10-10] MEDS: methylPREDNISolone Sod Succ 40 MG/ML VIAL IVPUSH (08:36)
[2023-10-10] MEDS: Dronedarone HCl 400 MG TABLET PO (08:36)
[2023-10-10] MEDS: acetaZOLAMIDE 250 MG TABLET PO (08:37)
[2023-10-10] MEDS: Apixaban 5 MG TABLET PO (08:37)
[2023-10-10] MEDS: Furosemide 40 MG TABLET PO (08:37)
[2023-10-10] MEDS: 0.9 % Sodium Chloride Flush 3 ML SYRINGE IVFLUSH (08:37)
[2023-10-10 10:13] LABS: Venous Blood Gas Refer to POC result
[2023-10-10 10:14] LABS: VBG Base Excess 10.6 mmol/L; VBG HCO3 40 mmol/L (22-26); VBG pCO2 70 mmHg; VBG pH 7.36 (7.32-7.43); VBG pO2 42 mmHg
--- NOTE | 2023-10-10 10:46 | ECG_ITS ---
Test Reason : new onset afib Blood Pressure : / mmHG Vent. Rate : 063 BPM Atrial Rate : 063 BPM P-R Int : 170 ms QRS Dur : 104 ms QT Int : 402 ms P-R-T Axes : 032 -16 043 degrees QTc Int : 411 ms Normal sinus rhythm RSR' or QR pattern in V1 suggests right ventricular conduction delay Cannot rule out Inferior infarct (cited on or before 01-JUL-2022) Abnormal ECG When compared with ECG of 07-OCT-2023 14:53, No significant change was found Referred By: David Solorio Electronically Signed By:BIJU PELAYO MD
[2023-10-10 11:08] VITALS: BP 146/74; PULSE 68; RESP 20; TEMP 36.5; O2SAT 93
--- NOTE | 2023-10-10 11:08 | PM.DS ---
DS: Providers Provider Date of Service: 10/10/23 Date of admission: 10/06/23 11:42 Primary care physician: Alea Hull MD Consults: 10/08/23 09:25 Consult to Pulmonology Routine Consulting Provider: [facility] Reason for consultation: DEVIN, required more O2 Has provider been notified: No DS: Diagnosis Discharge Diagnosis (1) COPD exacerbation: Status: Inactive (2) Rhinovirus: Status: Acute DS: Summary Hospital Course Hospital Course: Chief Complaint: Shortness Of Breath 62-year-old male with COPD, atrial fibrillation/flutter, hyperthyroidism, obstructive sleep apnea, and morbid obesity presents with one week of progressive shortness of breath. Oxygen saturation drops into the 70s despite supplemental oxygen, prompting ED visit.Workup reveals mild CHF, which is treated with diuretics. COPD exacerbation is also suspected, and the patient is treated with IV steroids and bronchodilators via nebulizer. The patient's overall condition has improved Hospital course: # Acute on chronic hypoxemic and hypercapnic respiratory failure due to rhinovirus infection causing exacerbation of copd, he was treated with bronchodilators and steroid and seems to have responded well. Was seen by Pulmonolgist who further recommended use of respirator at night and during the day as needed. Will discharge with Prednisone for 3 more days # Acute on chronic diastolic heart failure exacerbation, treated with IV diuretics and then changed to home oral Lasix 40 bid, Diamox was added for Diamox for metabolic alkalosis with CO2 retention. This has worked well and CO2 retention has improved. # paroxysmal atrial fibrillation/flutter-rate controlled -continue Eliquis -continue multaq, metoprolol, diltiazem # hyperthyroidism -continue methimazole #History PE -continue eliquis # obstructive sleep apnea -respiratory at bedtime, # morbid obesity -weight loss efforts encouraged Time Attestation Discharge coordination time: Greater than 30 minutes Quality: Safe Use of Opioids Does Pt have an Active Cancer Diagnosis on the Problem List?: No Quality: Stroke Does the patient have a stroke diagnosis?: No Physical Exam Vital Signs: Vital Signs: Last Vital Signs Temp 97.5 F 10/10/23 07:26 Pulse 58 10/10/23 08:28 Resp 20 10/10/23 08:28 BP 164/80 H 10/10/23 07:26 Pulse Ox 95 10/10/23 07:26 O2 Del Method Nasal Cannula 10/10/23 07:26 O2 Flow Rate 2 10/10/23 07:26 Oxygen Flow Rate 2 10/06/23 07:02 BMI result Body Mass Index 44.8 Const: Other: General: AO X 3, no acute distress Resp: CTA bilateral CVS: S1,S2,RRR GI: +BS, NT, no distention Skin: No rash Neuro: motor grossly intact Psych: appropriate affect DS: Data Data Completed and Pending Completed studies during hospitalization [Text1]: Procedures Assistance with Respiratory Ventilation, Less than 24 Consecutive Hours, Continuous Positive Airway Pressure (08/26/23) Labs on day of discharge: Laboratory Results - last 24 hr 10/10/23 10:09 VBG pH 7.36 VBG pCO2 70 VBG pO2 42 VBG HCO3 40 H VBG O2 Saturation 66.0 VBG Base Excess 10.6 Preliminary micro results at discharge 10/06/23 07:59 Blood Culture - Preliminary Blood - Venous No growth after 48 hours. 10/06/23 07:59 Blood Culture - Preliminary Blood - Venous No growth after 48 hours. Discharge Plan Discharge Anticipated Discharge Date/Time: 10/10/23 11:05 Patient Disposition: Home, Self-Care Discharge Diagnosis: Copd exacerbation, heart failure exacerbation Referrals: Alea Hull MD [Primary Care Provider] - 1 Week Discharge Medications: New acetazolamide 250 mg tablet 250 mg PO QAM Qty: 5 0RF Continued diltiazem HCl 240 mg capsule,extended release 24 hr 240 mg PO BEDTIME Qty: 90 3RF albuterol sulfate 2.5 mg /3 mL (0.083 %) solution for nebulization 2.5 mg INHALATION BID 90 Days Qty: 540 3RF multivitamin Tablet 1 tab PO BEDTIME albuterol sulfate 90 mcg/actuation Hfa Aerosol Inhaler 2 puff INHALATION QID PRN (Reason: Wheezing) cholecalciferol (vitamin D3) 25 mcg (1,000 unit) Tablet 25 mcg PO BEDTIME Spiriva Respimat 2.5 mcg/actuation Mist 1 puff INHALATION BID methimazole 5 mg tablet 2.5 mg PO BEDTIME metoprolol succinate 100 mg tablet extended release 24 hr 100 mg PO BEDTIME roflumilast 500 mcg tablet 500 mcg PO BEDTIME thiamine HCl (vitamin B1) 500 mg Tablet 500 mg PO BEDTIME acetaminophen 500 mg Tablet 1,000 mg PO Q6H PRN (Reason: Pain) azelastine 137 mcg (0.1 %) aerosol,spray 2 spray intranasal DAILY PRN (Reason: Allergy Symptoms) vitamin E 268 mg (400 unit) Capsule 268 mg PO BEDTIME budesonide-formoterol [Symbicort] 160-4.5 mcg/actuation Hfa Aerosol Inhaler 2 puff INHALATION BID omeprazole magnesium 20 mg Capsule,Delayed Release(Dr/Ec) 20 mg PO DAILY@0630 Eliquis 5 mg tablet 5 mg PO BID furosemide 40 mg tablet 40 mg PO BID (DME) compr.stocking,knee,long,large Misc See Rx Instructions .Route Qty: 12 0RF Rx Instructions: As directed (DME) CPAP Machine/Device Device See Rx Instructions .Route Rx Instructions: As directed (DME) Oxygen Home Use Kit See Rx Instructions .Route Rx Instructions: As directed (DME) nebulizers Misc See Rx Instructions .Route Rx Instructions: As directed Multaq 400 mg tablet 400 mg PO BID 90 Days Qty: 180 3RF Rx Instructions: must administer with a meal/food Discharge Orders: Discharge Order (Routine); Ordered 10/10/23 Ordered By: Gautam Zuniga Diet: Advance to usual diet Activity on Discharge: As tolerated Stand Alone Forms: Patient Portal Discharge page Care Plan Goals: full recovery from copd exacerbation Health Concerns: copd sleep apenea rhino virus Plan of Treatment: Take Prednisone as directed for 3 more days use inhaler as before use respiratory for sleep and naps during the day Assessment: as above Discharge Date/Time: 10/10/23 14:04
--- NOTE | 2023-10-10 11:12 | MHC.CM.PN ---
Patient has been medically cleared for dc to home today, self care.
== END 2023-10-10 14:04 | disposition home or self-care (01) | DRG 140 ==
LOC: HO.ED 10:04 → HO.EDOVER 11:50 → HO.IMC 12:16
PROVIDERS: Internal Medicine; Admitting Provider Internal Medicine; Emergency Provider Emergency Medicine; PCP Internal Medicine; Visit Provider Internal Medicine
DX: J44.1 Chronic obstructive pulmonary disease with (acute) exacerbation (principal); J96.21 Acute and chronic respiratory failure with hypoxia; Z99.81 Dependence on supplemental oxygen; E66.2 Morbid (severe) obesity with alveolar hypoventilation; J96.22 Acute and chronic respiratory failure with hypercapnia; I48.0 Paroxysmal atrial fibrillation; E05.90 Thyrotoxicosis, unspecified without thyrotoxic crisis or storm; B97.89 Other viral agents as the cause of diseases classified elsewhere; I87.2 Venous insufficiency (chronic) (peripheral); B97.10 Unspecified enterovirus as the cause of diseases classified elsewhere; Z68.41 Body mass index [BMI] 40.0-44.9, adult; Z71.3 Dietary counseling and surveillance; Z20.822 Contact with and (suspected) exposure to COVID-19; Z86.711 Personal history of pulmonary embolism; Z87.891 Personal history of nicotine dependence; Z79.01 Long term (current) use of anticoagulants; Z79.899 Other long term (current) drug therapy
CPT/HCPCS: 36415; 71045; 80048; 80076; 82803; 83880; 84484; 85025; 87040; 87633; 93005; 94640; 99285; J1940; J2920; J2930

== ENCOUNTER → 2023-10-06 11:42 | Outpatient (BNV) | payer BC, SELFPAY | PROVIDERS: Admitting Provider Internal Medicine; Emergency Provider Emergency Medicine; PCP Internal Medicine; Visit Provider Internal Medicine | DX: J44.1 Chronic obstructive pulmonary disease with (acute) exacerbation (principal); B34.8 Other viral infections of unspecified site; I87.2 Venous insufficiency (chronic) (peripheral); Z86.711 Personal history of pulmonary embolism; Z86.79 Personal history of other diseases of the circulatory system; I50.9 Heart failure, unspecified; E66.01 Morbid (severe) obesity due to excess calories; Z68.42 Body mass index [BMI] 45.0-49.9, adult; G47.33 Obstructive sleep apnea (adult) (pediatric); E66.2 Morbid (severe) obesity with alveolar hypoventilation | CPT/HCPCS: 99223 ==

== ENCOUNTER → 2023-10-06 11:42 | Outpatient (BNV) | payer BC, SELFPAY | PROVIDERS: Admitting Provider Internal Medicine; Emergency Provider Emergency Medicine; PCP Internal Medicine; Visit Provider Internal Medicine | DX: J44.1 Chronic obstructive pulmonary disease with (acute) exacerbation (principal); J96.01 Acute respiratory failure with hypoxia; J96.02 Acute respiratory failure with hypercapnia; B34.8 Other viral infections of unspecified site | CPT/HCPCS: 99223; 99232; 99239 ==

== ENCOUNTER 2023-10-15 08:35 | Outpatient (AMB) | payer BC, SELFPAY ==
--- NOTE | 2023-10-15 08:48 | A.OFFVIS_ITS ---
Intake Vital Signs 10/15/23 08:49 Height 5 ft 10 in Weight 320 lb BMI 45.9 Pulse 64 Pulse Source Pulse Oximeter Pulse Oximetry (%) 92 Oxygen Delivery Method Room Air Comment 2 Pulse Oxygen([employer]) Intake Visit Reasons: COPD Uniform Maker Required: No Allergies No Known Allergies Allergy (Verified 10/16/23 07:44) HPI HPI Comments History of Present Illness Details The patient is a 62 y/o man with a PMH morbid obesity, chronic hypoxic respiratory failure due to COPD, OHS, DEVIN, chronic diastolic chf, htn, paroxysmal afib s/p ablation, hyperthyroid, history of pe, presented with dyspnea to [place] [facility] in early [place]. The patient states his sob has been getting progressively worse over last 2 months. initially on exertion, now at rest. has been needing to increase his home o2 supplement. recent PFTs may 2023 showed severe obstruction with FEV1 - 21%. The patient typically responds well to prednisone. He started feeling better. During the hospitalization he did have an ABG demonstrating a chronic hypercarbic respiratory failure secondary to likely has advanced COPD. He does use a BiPAP or a noninvasive ventilator at home. Will try to get a download from his [employer] company, [employer] In the meantime he is completing the prednisone taper. Will go ahead and optimize his respiratory therapy by switching over to Trelegy. She continues use the oxygen with good effect. He was participating in pulmonary rehabilitation when he was sent to the ER. He is going to try to get back to pulmonary rehabilitation at this time. If the patient is not better once he completes the prednisone and would like to restart his lower dose he will call for additional prednisone. 10/15/2023 the patient is here for hospital follow-up visit. Apparently he ended up developing an upper respiratory illness and subsequently worsening worsening respiratory symptoms. He was admitted to the [facility]. Viral swab positive for enterovirus. The patient also was noted to have a chest x-ray perihilar congestion consistent with mild heart failure. He was placed on diuretics. The patient was placed on prednisone. He continue using his BiPAP. He did have a blood gas in the hospital demonstrating chronic hypercarbic respiratory failure. He has been using his AVAP. DME is [employer] Will request a download at this time and further adjust the AVAP accordingly. We did review his imaging studies demonstrating the mild heart failure. The patient understands that he will continue with a low-sodium diet. New continue with current respiratory therapy. [facility] Medical History Hypoventilation associated with obesity syndrome DEVIN (obstructive sleep apnea) COPD (chronic obstructive pulmonary disease) Chronic diastolic heart failure Acute on chronic diastolic (congestive) heart failure Acute exacerbation of chronic obstructive airways disease Hyperthyroidism Venous insufficiency of both lower extremities Chronic respiratory failure Hx pulmonary embolism Paroxysmal atrial flutter PAF (paroxysmal atrial fibrillation) Lung mass Surgical History H/O cardiac radiofrequency ablation Family History Father Bone cancer Mother COPD (chronic obstructive pulmonary disease) Social History Household Members: Spouse Household Members Other:: Housing: House Do you presently have visiting nurse or other home services: No Unable to assess alcohol history related to: Unknown Alcohol intake: current Alcohol intake frequency: holidays/special occasions only Patient Tobacco Use Status: Former Tobacco user Years Smoked: 30 years e-Cigarette/Vaping Use: Never Used Second Hand Smoke Exposure: No Advance Directives Date on File: 07/14/23 service: No Current occupational status: employed Cognitive needs: No Hearing needs: No Vision needs: Yes Review of Systems Const Denies fever(s) Eyes Denies exophthalmos Card Denies chest pain and Reports dyspnea on exertion Resp Denies chest congestion, Reports dyspnea on exertion and Denies wheezing GI Reports no additional complaints Musc Reports no additional complaints Skin/Breast Denies rash Neuro Reports no additional complaints Venu/Lymph Denies lymphadenopathy Aller/Immun Denies wheezing Physical Exam Vital Signs: Last Vital Signs Pulse 64 10/15/23 08:49 Pulse Ox 92 10/15/23 08:49 Oxygen Delivery Method Room Air 10/15/23 08:49 BMI result Body Mass Index 45.9 Const General: comfortable HEENT Head: Yes atraumatic Neck Neck: Yes supple Chest Chest palpation & inspection: normal inspection of the chest Resp Effort & Inspection: normal respiratory effort Auscultation: diminished lung sounds Cardio Rate: regular rate Rhythm: regular rhythm Heart sounds: S1 normal heart sound present and S2 normal heart sound present GI Palpation (GI): Soft to palpation Skin General skin exam: no rashes or lesions noted Extrem General: Yes no clubbing, cyanosis or edema Results Reviewed Results Reviewed: [address] [address] [address] Scan Report Signed Patient: Mario Dolan Jr MR#: [id number] : 1960 Acct:[id number] Age/Sex: 62 / M ADM Date: 05/20/23 Loc: HO.CT Attending Dr: Alea Hull MD Ordering Physician: Alea Hull MD Date of Service: 05/20/23 Procedure(s): CT chest wo con - High Res Accession Number(s): [id number] cc: Alea Hull MD~ EXAMINATION: CT CHEST WITHOUT CONTRAST HIGH-RESOLUTION CLINICAL INFORMATION: Chronic respiratory failure. COMPARISON: Previous chest x-ray July 2022. TECHNIQUE: Axial images through the chest without IV contrast. Sagittal and coronal reconstructions on the technologist workstation were performed. This CT examination was performed using dose optimization techniques as appropriate, variously including the following: *Automated exposure control *Adjustment of mA and/or kV according to patient size (this includes techniques or standardized protocols for targeted exams where dose is matched to indication/reason for exam; i.e. extremities or head) *Use of iterative reconstruction technique PATIENT DOSE: 374 mGy-cm. FINDINGS: There is heterogeneous attenuation in the lungs questionable for hypoventilatory changes related to air trapping. There is a 3 mm calcified peripheral or subpleural left upper lobe nodule axial image 52 series 12. There is scarring or subsegmental atelectasis in the posterior segment of the right upper lobe near the major fissure axial image 53 series 12. There is bullous or cystic change at the right lung base in the lateral segment of the right middle lobe and anterior basal right lower lobe. There is peripheral or subpleural right lower lobe mass-like density adjacent to the diaphragmatic pleural surface. This measures 2.2 x 5.7 cm in AP and transverse dimension and 1 cm in length. This has more old central bronchovascular pattern. Appearance is questionable for a round atelectasis related to pleural disease. There is a 3 mm calcified left lower lobe pulmonary nodule. No endobronchial or endotracheal lesion. There is flattening of the trachea and right and left mainstem bronchi questionable for tracheomalacia. The heart does not appear enlarged. Mild coronary artery calcification. No pericardial effusion. Pulmonary arteries are enlarged, questionable for pulmonary artery hypertension. Main pulmonary artery measures 4 cm. The thoracic aorta is normal in caliber. There are no enlarged hilar or mediastinal lymph nodes. There is right diaphragmatic pleural thickening and calcification. Appearance is questionable for asbestos-related pleural disease. No left pleural thickening. No pleural effusion. Images through the upper abdomen are unremarkable. No chest wall mass or enlarged axillary lymph nodes. Degenerative changes of the spine. CT/CT chest wo con - High Res IMPRESSION: Bullous or cystic changes at the right lung base in the right middle and right lower lobes. Right diaphragmatic pleural thickening and calcification. Adjacent peripheral or subpleural mass-like density in the right lower lobe, question representing round atelectasis related Assessment & Plan Assessment & Plan (1) COPD (chronic obstructive pulmonary disease): Comment: ex TOBACCO 2007 Code(s): J44.9 - Chronic obstructive pulmonary disease, unspecified Qualifiers: COPD type: COPD with acute exacerbation Qualified Code(s): J44.1 - Chronic obstructive pulmonary disease with (acute) exacerbation (2) Chronic respiratory failure: Comment: on supplemental O2 PRN Code(s): J96.10 - Chronic respiratory failure, unspecified whether with hypoxia or hypercapnia Qualifiers: Respiratory failure complication: hypoxia and hypercapnia Qualified Code(s): J96.11 - Chronic respiratory failure with hypoxia; J96.12 - Chronic respiratory failure with hypercapnia (3) Hx pulmonary embolism: Comment: 2013, on lifetime anticoagulation Code(s): Z86.711 - Personal history of pulmonary embolism (4) Sleep apnea: Code(s): G47.30 - Sleep apnea, unspecified Qualifiers: Sleep apnea type: obstructive Qualified Code(s): G47.33 - Obstructive sleep apnea (adult) (pediatric) (5) Lung mass: Code(s): R91.8 - Other nonspecific abnormal finding of lung field Plan continue Trelegy Continue Daliresp REY as needed continue oxygen supplementation Astral AVAPS at night, will request a download from his [employer] restart Pulmonary rehab when better prednisone taper continue Eliquis diureses as tolerated lung mass likely rounded atelectasis associated with a calcified pleural plaque. Will need close f/u. Likely Oct 2023 F/U 2-3 months Orders: Orders CT chest wo IV con 11/03/23 R91.8 - Other nonspecific abnormal finding of lung field Coding Level of Care Code Est Pt Level 4 (70296) Diagnoses Chronic obstructive pulmonary disease with acute exacerbation J44.1 COPD type: COPD with acute exacerbation Chronic respiratory failure with hypoxia and hypercapnia J96.11; J96.12 Respiratory failure complication: hypoxia and hypercapnia Hx pulmonary embolism Z86.711 Obstructive sleep apnea syndrome G47.33 Sleep apnea type: obstructive Lung mass R91.8 Time Spent (min) 18
[2023-10-15 08:49] VITALS: PULSE 64; O2SAT 92; BMI 45.9
== END 2023-10-15 09:11 | disposition home or self-care (01) ==
PROVIDERS: PCP Internal Medicine; Visit Provider Hospitalist
DX: J44.1 Chronic obstructive pulmonary disease with (acute) exacerbation (principal); J96.11 Chronic respiratory failure with hypoxia; J96.12 Chronic respiratory failure with hypercapnia; Z86.711 Personal history of pulmonary embolism; G47.33 Obstructive sleep apnea (adult) (pediatric); R91.8 Other nonspecific abnormal finding of lung field
CPT/HCPCS: 99214

== ENCOUNTER → 2023-10-15 08:35 | Outpatient (BNVA) | payer BC, SELFPAY | PROVIDERS: PCP Internal Medicine; Visit Provider Hospitalist ==

== ENCOUNTER 2023-10-16 07:37 | Outpatient (AMB) | payer BC, SELFPAY ==
--- NOTE | 2023-10-16 07:40 | A.OFFPC_ITS ---
Vital Signs 10/16/23 07:43 Height 5 ft 10 in Weight 322 lb BMI 46.2 BP 120/76 Blood Pressure Location Rt brachial Position Sitting Pulse 64 Pulse Source Pulse Oximeter Pulse Oximetry (%) 93 Oxygen Delivery Method Nasal Cannula Intake Visit Reasons: 3 month follow up Allergies No Known Allergies Allergy (Verified 10/16/23 07:44) Tobacco use date assessed: 09/10/23 HPI 3 month follow up HPI Details Patient presents for the follow-up of hospitalization for COPD exacerbation due to viral infection. Patient completed cause of prednisone and is feeling better. He is 24 hour O2 dependent adjusting his oxygen flow depending on the activity. Patient follows up with marine scientist and will have the BiPAP setting adjusted as the patient is chronic CO2 retainer. Paroxysmal AFib is stable. patient has been taking Cardizem, Multaq and metoprolol. He is anticoagulated on Eliquis PFSH Medical History Hypoventilation associated with obesity syndrome DEVIN (obstructive sleep apnea) COPD (chronic obstructive pulmonary disease) Chronic diastolic heart failure Acute on chronic diastolic (congestive) heart failure Acute exacerbation of chronic obstructive airways disease Hyperthyroidism Venous insufficiency of both lower extremities Chronic respiratory failure Hx pulmonary embolism Paroxysmal atrial flutter PAF (paroxysmal atrial fibrillation) Lung mass Surgical History H/O cardiac radiofrequency ablation Family History Father Bone cancer Mother COPD (chronic obstructive pulmonary disease) Social History Household Members: Spouse Household Members Other:: Housing: House Do you presently have visiting nurse or other home services: No Unable to assess alcohol history related to: Unknown Alcohol intake: current Alcohol intake frequency: holidays/special occasions only Patient Tobacco Use Status: Former Tobacco user Years Smoked: 30 years e-Cigarette/Vaping Use: Never Used Second Hand Smoke Exposure: No Advance Directives Date on File: 07/14/23 service: No Current occupational status: employed Cognitive needs: No Hearing needs: No Vision needs: Yes Questionnaire Thrive Questionnaire Date Thrive assessed: 10/07/23 WILEY-7 AMB Questionnaire WILEY-7 Date WILEY - 7 assessed: 04/24/23 Source: Developed by Drs. Tre Maya, Kay Win, Hoang Bethea and colleagues, with an educational padmaja from [employer]. Review of Systems Const All systems reviewed & are unremarkable except as noted in HPI and below Reports no additional complaints Eyes Reports no additional complaints ENT Reports no additional complaints Card Reports no additional complaints Resp Reports no additional complaints GI Reports no additional complaints Reports no additional complaints Physical exam (Primary Care) Vital Signs: Last Vital Signs Pulse 64 10/16/23 07:43 BP 120/76 10/16/23 07:43 Pulse Ox 93 10/16/23 07:43 Oxygen Delivery Method Nasal Cannula 10/16/23 07:43 BMI result Body Mass Index 46.2 Tobacco/Smoking Status: Tobacco use Status Tobacco use date assessed 09/10/23 10/16/23 07:42 Patient Tobacco Use Status Former Tobacco user 10/16/23 07:42 e-Cigarette/Vaping Use Never Used 10/16/23 07:42 Thrive Assessment: Date of Thrive Assessment Date Thrive assessed 10/07/23 10/16/23 07:42 Const General: no acute distress HENMT Face and sinus: Yes normal facial exam Throat: Yes posterior oropharynx normal Resp Effort & Inspection: normal respiratory effort Auscultation: crackles on the right and diminished lung sounds Cardio Rhythm: regular rhythm Heart sounds: S1 normal heart sound present and S2 normal heart sound present GI Inspection: Yes normal to inspection Palpation (GI): Soft to palpation Assessment and Plan Assessment & Plan (1) Hypoventilation associated with obesity syndrome: Code(s): E66.2 - Morbid (severe) obesity with alveolar hypoventilation Plan: Continue current treatment supplemental O2 BiPAP and patient has been working on weight loss (2) DEVIN (obstructive sleep apnea): Code(s): G47.33 - Obstructive sleep apnea (adult) (pediatric) (3) PAF (paroxysmal atrial fibrillation): Code(s): I48.0 - Paroxysmal atrial fibrillation Plan: Continue current treatment including Eliquis follow-up with Cardiology (4) A-fib: Comment: Echo 07/2022 [facility] [place] nl EF, LVH, nl valves ,? pul HTN (on previous echo) Code(s): I48.91 - Unspecified atrial fibrillation (5) Hyperthyroidism: Code(s): E05.90 - Thyrotoxicosis, unspecified without thyrotoxic crisis or storm Plan: On low-dose methimazole, monitor TSH Coding Level of Care Code Est Pt Level 4 (53343) Diagnoses Hypoventilation associated with obesity syndrome E66.2 DEVIN (obstructive sleep apnea) G47.33 PAF (paroxysmal atrial fibrillation) I48.0 A-fib I48.91 Hyperthyroidism E05.90
[2023-10-16 07:43] VITALS: BP 120/76; PULSE 64; O2SAT 93; BMI 46.2
== END 2023-10-16 08:18 | disposition home or self-care (01) ==
PROVIDERS: PCP Internal Medicine; Visit Provider Internal Medicine
DX: I48.0 Paroxysmal atrial fibrillation (principal); I48.91 Unspecified atrial fibrillation; E66.2 Morbid (severe) obesity with alveolar hypoventilation; Z68.42 Body mass index [BMI] 45.0-49.9, adult; G47.33 Obstructive sleep apnea (adult) (pediatric); E05.90 Thyrotoxicosis, unspecified without thyrotoxic crisis or storm
CPT/HCPCS: 99214

== ENCOUNTER 2023-11-10 08:08 | Outpatient (REF) | payer BC, SELFPAY ==
[2023-11-10 11:23] LABS: MANUAL DIFF FLAG NO
[2023-11-10 11:42] LABS: Basophils Absolute Auto 0.1 X10*3/uL (0.0-0.2); Basophils Percent Auto 0.6 % (0-2); Eosinophils Absolute Auto 0.2 X10*3/uL (0.0-0.4); Eosinophils Percent Auto 2.8 % (0-4); Hematocrit 50.7 % (42.0-52.0); Hemoglobin 15.2 g/dl (14.0-18.0); Imm Gran Abs Auto 0.05 X10*3/uL (0.00-0.03); Imm Gran Pct Auto 0.6 % (0.0-0.4); Lymphocytes Absolute Auto 2.1 X10*3/uL (1.2-4.9); Lymphocytes Percent Auto 24.6 % (20-40); Mean Corpuscular Volume 93.5 fL (80.0-98.0); Mean Platelet Volume 11.4 fL (9.4-12.4); Monocytes Absolute Auto 0.7 X10*3/uL (0.1-1.2); Monocytes Percent Auto 8.4 % (2-11); Neutrophils Absolute Auto 5.4 x10*3/uL (2.0-8.3); Platelet Count 224 X10*3/uL (160-400); Red Blood Count 5.42 X10*6/uL (4.60-5.80); Red Cell Distribution Width 17.2 % (11.0-16.0); White Blood Count 8.6 X10*3/uL (4.8-10.8)
[2023-11-10 11:56] LABS: Estimated Average Glucose 117 mg/dL; Hemoglobin A1c % 5.7 % (<6.0)
[2023-11-10 12:25] LABS: Alanine Aminotransferase 20 U/L (0-40); Albumin Level 4.3 g/dL (3.5-5.0); Alkaline Phosphatase 60 U/L (39-117); Anion Gap 14 (12-20); Aspartate Amino Transferase 20 U/L (5-37); Bilirubin Total 0.5 mg/dL (0.0-1.0); Blood Urea Nitrogen 20 mg/dL (9-16); Calcium 9.4 mg/dL (8.4-10.2); Carbon Dioxide 39 mmol/L (22-29); Chloride 96 mmol/L (96-108); Cholesterol 187 mg/dL (<200); Estimated Glomerular Filt Rate > 60; Glucose Fasting 89 mg/dL (60-99); HDL Cholesterol 60 mg/dL (>40); LDL Cholesterol Calculated 108 mg/dL (<100); Potassium 4.8 mmol/L (3.3-5.1); Sodium 144 mmol/L (135-145); TSH reflex Free T4 0.59 uIU/mL (0.32-4.0); Total Protein 7.1 g/dL (6.5-8.0); Triglycerides 99 mg/dL (<150)
[2023-11-10 12:48] LABS: Creatinine Urine 106.02 mg/dL
[2023-11-10 13:15] LABS: Microalbum/Creatinine Ratio Ur 662.1 ug/mg cr (<30)
== END 2023-11-10 08:09 | disposition home or self-care (01) ==
LOC: HO.HMGCLDS 08:08
PROVIDERS: PCP Internal Medicine; Visit Provider Internal Medicine
DX: Z00.00 Encounter for general adult medical examination without abnormal findings (principal); E05.90 Thyrotoxicosis, unspecified without thyrotoxic crisis or storm; I48.0 Paroxysmal atrial fibrillation; Z98.890 Other specified postprocedural states; Z86.711 Personal history of pulmonary embolism
CPT/HCPCS: 36415; 80053; 80061; 82043; 82570; 83036; 84443; 85025

== ENCOUNTER 2023-11-18 07:00 | Outpatient (RCR) | payer BC, SELFPAY ==
[2023-07-04 10:05] VITALS: PULSE 62
--- NOTE | 2023-07-07 07:11 | MHC.PR.IN ---
[address] [phone] F: [phone] Pulmonary Rehabilitation Individual Treatment Plan Mario Dolan Jr. is a 62 year old (M) who was referred to the Pulmonary Rehabilitation program by Alea Hull. This patient who has a primary diagnosis of COPD will begin pulmonary rehabilitation with monitored exercise and education to optimize both physical and social performance, autonomy, increase strength and endurance, and control dypsnea. The following information was gathered from the patient: Smoking History Current smoking status: Former Smoker Years smoked: 30 years Last time smoked: Quit Date: 2007 Assistance with quitting needed: Past Medical History Medical History: Cardiac Disorders Hypertension COPD Pulmonary Embolism Pneumonia Sleep Apnea Surgeries: Past Pulmonary Hospitalizations # of hospitalizations in the past year: 1 year ago for COPD exacerbation # of ER vists due to breathing troubles in the past year: 1 year ago Current Pulmonary Medications albuterol nebulizer symbicort 2X daily spiriva 2X daily albutero mdi PRN Furosemide Allergy History Allergies: Current Oxygen Use Supplemental Oxygen Device Used: Concentrator Cylinders Liter flow: 2-3L How often: With sleep and exercise Pulmonary History Cough: No Sputum: Yes Sleep device: Yes: [employer] Other pulmonary devices: Peak flow meter: No Nebulizer: Yes Suction: Ventilator: Secretion clearance: PEP: Influenza vaccine: Yes Pneumonia vaccine: Yes Patient Questionaire Scores MRC Dyspnea Scale (mRC): 3 CAT Score: 22 PHQ-9 Score: 3 Pulmonary Function Test and Vital Signs Pulmonary Function Test Date of PFT 06/05/2023 FVC Actual 2.04% FVC Predicted 41% FEV1 Actual 0.88% FEV1 Predicted 23% FEV1/FVC Actual 43% FEV1/FVC Predicted 57% DLCO 15.47 Vital Signs Heart Rate 62 Blood Pressure SpO2 91% Respiratory Rate rapid shallow Six Minute Walk Test Supplemental Oxygen O2 L/min: 2.5lpm FiO2: Resting Vitals SpO2: 85% BP: mmHg HR: 62 bpm Total Distance 780 Number/ Time of Rests (sec) WENDY 2 METS 2.13 SpO2 89 HR (bpm) 110 MPH 1.47 Meters/Minute 40 Post-walk Vitals SpO2: 90 BP: HR: 91 Performance Observations Pt walked moderate pace unassisted. At minute 2 patient desatted to 85%. RT increased o2 to maintain sp02 88%-92%. Pt required 7lpm of supplemental o2 for the duration of the walk. PT Dyspnea scale 2-3. Pt denies dizziness, pain, fatigue. Pt to have first visit with Dr. Mills within the next few weeks. MD notified, as new 02 script will need a follow up. Pulmonary Rehabilitation Plan Topic Problem Goal Plan Comment Education Knowledge deficit of disease self management strategies Ineffective control of dyspnea Verbalize adequate disease self-management skills Effective control of dyspnea Advanced directives Disease overview Exacerbation prevention and management Home exercise program Intimacy Panic Control Respiratory medication Secretion clearance research microbiologist educated and A & P of good lung vs bad lung. Pt educated on how to check oxygen and heart rate with pulse oximiter. Pt educated on the safety and use of supplemental O2. Hypoxia Hypoxemia Needs oxygen recommendation Poor knowledge of oxygen use and safety SpO2 >90 Appropriate portable oxygen system obtained Using oxygen as ordered Monitor oxygen saturation with rest and exercise Recommend appropriate liter flow to patient and physician Educate appropriate use of oxygen at rest and with activity Educate on oxygen safety Educate on oxygen systems PT arrived to intake without supplemental oxygen. SPo2 74 on RA. PT placed on 10lpm to increase spo2 to 88%, then titrated to 3lpm. Pt educated on pursed lip breathing to increase oxygenation. Pt educated on the danger and signs of hypoxemia. Psychosocial Anxiety Adequate treatment of depression Referral to MD for counseling Verbalizes improved psychosocial coping strategies & mechanisms Review screening results Benefits of exercise Relaxation techniques Coping techniques Stress management On medications currently Receiving counseling Recommend counseling Recommend f/u with MD for possible meds Pt states he feels good, but does worry about using supplemental o2. Will continue to educated throughout program. Activities of Daily Living Impaired ADL management Fear of severe dyspnea ADL management and control of dyspnea ADL performance with pacing and pursed lip breathing Educate on pursed lip breathing and pacing with stairs and activity Pt educated on the use of 02 for oxygenation. Will continue to educate. Nutrition & Weight Management Obese Lose weight during program Prevent further weight gain Nutrition consult PT given rate my plate hand out and education. Pt goal is to lose weight during program. Pt will monitor caloric intake and we will revisit throughout program. Tobacco Managment Pt has been smoke free since 2018 Medication Medication non-adherence Adherence to prescribed medications Importance of medication compliance Medications purpose Medication schedule Medication side-effects Prescribed medications PT states he uses medications as prescribed 100% of the time. Inhaled Medication Purpose, side effects and technique needs review Correct technique/timing and care of inhaled medications Demo of MDI with spacer device MDI with spacer device Spacer teaching demonstrated with teachback. Secretion Management Ineffective airway clearance PT has productive cough. Able to manage secretions on own Exercise & Fitness Decreased strength & endurance Knowledge deficit of exercise guidelines & safety No regular exercise Pulmonary Rehab 2-3x/week Weight or resistance training 2-3x/week Aerobic Exercise: 30-60mins x 9 weeks Review benefits & core components of exercise program Review how to measure and monitor dyspnea level Review exercise safety guidelines Review frequency and duration of exercise Review exercise intensity WENDY RPD 3-4/10 Review home exercise guidelines Pulmonary rehab 3X weekly. Diabetes Management Does patient have DM?: No Diabetes Type: Current Blood Glucose Level: Current A1C Level: Self Check: Pt does not have diabetes Patient's Goals and Concerns Pt goal is to use oxygen to maintain sp02 >88 as prescribed. Pt goal to become more active and learn how to work through shortness of breath. . 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 The treatment plan and goals support the patient's needs and abilities, and thereby recommend that the exercise plan be completed as documented. Special precautions or modifications to the treatment plan include:
[2023-07-08 09:24] VITALS: BP 140/76
[2023-07-24 11:43] VITALS: BP 134/64; BP 146/78
[2023-07-29 10:17] VITALS: BP 124/62; BP 142/71
[2023-07-31 08:44] VITALS: BP 132/62; BP 132/72
--- NOTE | 2023-08-01 07:54 | MHC.PR.RE ---
[address] [phone] F: [phone] Pulmonary Rehabilitation Reassessment Mario Dolan Jr. is a 62 year old (M) who was referred to the Pulmonary Rehabilitation program by Alea Hull. This patient who has a primary diagnosis of COPD has completed 5 sessions of the pulmonary rehabilitation program thus far with monitored exercise and education to optimize both physical and social performance, autonomy, increase strength and endurance, and control dypsnea. They were evaluated on . Reassessment Type: 30-day reassessment Topic Education/ Progress Progress Comments Education Demonstrates disease self-management strategies Using medications as directed Mobilizes secretions successfully Demonstrates strategies for anxiety and depression management Education ongoing on pursed lip breathing/ diaphragmatic breathing. Will be ongoing. Hypoxia Current oxygen Use: 4-6lpm Demonstrates knowledge of O2 prescription at rest & with activity Demonstrates knowledge of O2 safety Pt non adherent; notify MD Pt using per Rx 100% of time Ongoing education on the proper amount and use of oxygen with rest and exertion. Progression Psychosocial PHQ-9 Score: 3 Pt states he is not depressed. Education ongoing on coping skills and dealing with worry Activities of Daily Living Management of ADL with Control of Dyspnea Appropriate Stair Climbing Progressing Nutrition & Weight Management Current weight: 331 BMI: Weight change: Weight Loss Patient hospitalized for fluid overload. Pt dieresed and then returned Tobacco Stages of Change: Tobacco Use: Cigerettes/Day: Any nicotine replacement: Any cessation medication: Smoking quit date: Smokeless tobacco use and amount: Pt is a non smoker Medication albuterol nebulizer symbicort 2X daily spiriva 2X daily albutero mdi PRN Furosemide Inhaled Medication Patient verbalizes correct technique of: MDI: Yes DPI: SMI: NEBULIZER: Yes Education ongoing on SVN/MDI/DPI. Secretion Management Patient provides adequate return demonstration of: Controlled cough: Mazariegos cough: Acapella/ PEP Device: CPT: Sputum management: Education ongoing. Exercise & Fitness Aerobic Exercise Frequency: 2-3X weekly Target heart range: Heart rate range: SpO2 Range: WENDY RPD: 3-4 Time (minutes): O2 use with exercise: 4-5lpm Current HEP: Recumbent bike L1.0 RPD 3 15 2-3X weekly UBE L1.0 RPD 2 17 min 2X weekly Nustep PRD 3 32 min 2-3X weekly Pt is progressing nicely since returning from hospitalization. Goal is to increase level and Mets within the next several weeks. Brick Setter Operator Review I have reviewed the outcome re-assessment and treatment plan. The treatment plan and goals support the patient's needs and abilities, and thereby recommend that the exercise plan be completed as documented. Special precautions or modifications to the treatment plan include:
[2023-08-05 08:57] VITALS: BP 132/72; BP 134/68
[2023-08-07 07:10] VITALS: BP 130/7; BP 136/72
[2023-08-07 08:11] VITALS: BP 142/78; BP 148/72
[2023-08-19 09:27] VITALS: BP 137/78; BP 146/72
[2023-08-21 11:56] VITALS: BP 120/64; BP 142/58
--- NOTE | 2023-09-12 08:19 | MHC.PR.RE ---
[address] [phone] F: [phone] Pulmonary Rehabilitation Reassessment Mario Dolan Jr. is a 62 year old (M) who was referred to the Pulmonary Rehabilitation program by Alea Hull. This patient who has a primary diagnosis of COPD has completed 9 sessions of the pulmonary rehabilitation program thus far with monitored exercise and education to optimize both physical and social performance, autonomy, increase strength and endurance, and control dypsnea. They were evaluated on . Reassessment Type: 60-day reassessment Topic Education/ Progress Progress Comments Education Demonstrates disease self-management strategies Using medications as directed Mobilizes secretions successfully Demonstrates strategies for anxiety and depression management Education ongoing on pursed lip breathing/ diaphragmatic breathing. Will be ongoing. Hypoxia Current oxygen Use: 4LPM Demonstrates knowledge of O2 prescription at rest & with activity Demonstrates knowledge of O2 safety Pt non adherent; notify MD Pt using per Rx 100% of time Ongoing education on the proper amount and use of oxygen with rest and exertion. Progression Psychosocial PHQ-9 Score: 3 Pt states he is not depressed. Education ongoing on coping skills and dealing with worry Activities of Daily Living Management of ADL with Control of Dyspnea Appropriate Stair Climbing Progressing Nutrition & Weight Management Current weight: 331 BMI: Weight change: Weight Loss Patient hospitalized for fluid overload. Pt dieresed and then returned Tobacco Stages of Change: Tobacco Use: Cigerettes/Day: Any nicotine replacement: Any cessation medication: Smoking quit date: Smokeless tobacco use and amount: Pt is a non smoker Medication albuterol nebulizer symbicort 2X daily spiriva 2X daily albutero mdi PRN Furosemide Inhaled Medication Patient verbalizes correct technique of: MDI: Yes DPI: SMI: NEBULIZER: Yes Education ongoing on SVN/MDI/DPI. Secretion Management Patient provides adequate return demonstration of: Controlled cough: Mazariegos cough: Acapella/ PEP Device: CPT: Sputum management: Education ongoing. Exercise & Fitness Aerobic Exercise Frequency: 2-3X weekly Target heart range: Heart rate range: SpO2 Range: WENDY RPD: 3-4 Time (minutes): O2 use with exercise: 4-5lpm Current HEP: Recumbent bike L1.0 RPD 3 15 2-3X weekly UBE L1.0 RPD 2 17 min 2X weekly Nustep PRD 3 32 min 2-3X weekly Pt is progressing nicely since returning from hospitalization. Goal is to increase level and Mets within the next several weeks. Oral And Maxillofacial Surgery Review I have reviewed the outcome re-assessment and treatment plan. The treatment plan and goals support the patient's needs and abilities, and thereby recommend that the exercise plan be completed as documented. Special precautions or modifications to the treatment plan include:
--- NOTE | 2023-10-10 09:13 | MHC.PR.RE ---
[address] [phone] F: [phone] Pulmonary Rehabilitation Reassessment Mario Dolan Jr. is a 62 year old (M) who was referred to the Pulmonary Rehabilitation program by Alea Hull. This patient who has a primary diagnosis of COPD has completed 9 sessions of the pulmonary rehabilitation program thus far with monitored exercise and education to optimize both physical and social performance, autonomy, increase strength and endurance, and control dypsnea. They were evaluated on . Reassessment Type: 90-day reassessment Topic Education/ Progress Progress Comments Education Demonstrates disease self-management strategies Using medications as directed Mobilizes secretions successfully Demonstrates strategies for anxiety and depression management Education ongoing on pursed lip breathing/ diaphragmatic breathing. Will be ongoing. Hypoxia Current oxygen Use: 4LPM Demonstrates knowledge of O2 prescription at rest & with activity Demonstrates knowledge of O2 safety Pt non adherent; notify MD Pt using per Rx 100% of time Ongoing education on the proper amount and use of oxygen with rest and exertion. Progression Psychosocial PHQ-9 Score: 3 Pt states he is not depressed. Education ongoing on coping skills and dealing with worry Activities of Daily Living Management of ADL with Control of Dyspnea Appropriate Stair Climbing Progressing Nutrition & Weight Management Current weight: 331 BMI: Weight change: Weight Loss Patient hospitalized for fluid overload. Pt dieresed and then returned Tobacco Stages of Change: Tobacco Use: Cigerettes/Day: Any nicotine replacement: Any cessation medication: Smoking quit date: Smokeless tobacco use and amount: Pt is a non smoker Medication albuterol nebulizer symbicort 2X daily spiriva 2X daily albutero mdi PRN Furosemide Inhaled Medication Patient verbalizes correct technique of: MDI: Yes DPI: SMI: NEBULIZER: Yes Education ongoing on SVN/MDI/DPI. Secretion Management Patient provides adequate return demonstration of: Controlled cough: Mazariegos cough: Acapella/ PEP Device: CPT: Sputum management: Education ongoing. Exercise & Fitness Aerobic Exercise Frequency: 2-3X weekly Target heart range: Heart rate range: SpO2 Range: WENDY RPD: 3-4 Time (minutes): O2 use with exercise: 4-5lpm Current HEP: Recumbent bike L1.0 RPD 3 15 2-3X weekly UBE L1.0 RPD 2 17 min 2X weekly Nustep PRD 3 32 min 2-3X weekly Pt is progressing nicely since returning from hospitalization. Goal is to increase level and Mets within the next several weeks. Art Director Review I have reviewed the outcome re-assessment and treatment plan. The treatment plan and goals support the patient's needs and abilities, and thereby recommend that the exercise plan be completed as documented. Special precautions or modifications to the treatment plan include:
--- NOTE | 2023-11-17 09:39 | MHC.PR.RE ---
[address] [phone] F: [phone] Pulmonary Rehabilitation Reassessment Mario Dolan Jr is a 63 year old (M) who was referred to the Pulmonary Rehabilitation program by Alea Hull. This patient who has a primary diagnosis of COPD has completed 13 sessions of the pulmonary rehabilitation program thus far with monitored exercise and education to optimize both physical and social performance, autonomy, increase strength and endurance, and control dypsnea. They were evaluated on . Reassessment Type: 120-day reassessment Topic Education/ Progress Progress Comments Education Demonstrates disease self-management strategies Using medications as directed Mobilizes secretions successfully Demonstrates strategies for anxiety and depression management Education ongoing on pursed lip breathing/ diaphragmatic breathing. Will be ongoing. Hypoxia Current oxygen Use: 4LPM Demonstrates knowledge of O2 prescription at rest & with activity Demonstrates knowledge of O2 safety Pt non adherent; notify MD Pt using per Rx 100% of time Ongoing education on the proper amount and use of oxygen with rest and exertion. Progression Psychosocial PHQ-9 Score: 3 Pt states he is not depressed. Education ongoing on coping skills and dealing with worry Activities of Daily Living Management of ADL with Control of Dyspnea Appropriate Stair Climbing Progressing Nutrition & Weight Management Current weight: 330 BMI: Weight change: Weight Loss Patient hospitalized for fluid overload. Pt dieresed and then returned Tobacco Stages of Change: Tobacco Use: Cigerettes/Day: Any nicotine replacement: Any cessation medication: Smoking quit date: Smokeless tobacco use and amount: Pt is a non smoker Medication albuterol nebulizer symbicort 2X daily spiriva 2X daily albutero mdi PRN Furosemide Inhaled Medication Patient verbalizes correct technique of: MDI: Yes DPI: SMI: NEBULIZER: Yes Education ongoing on SVN/MDI/DPI. Secretion Management Patient provides adequate return demonstration of: Controlled cough: Mazariegos cough: Acapella/ PEP Device: CPT: Sputum management: Education ongoing. Exercise & Fitness Aerobic Exercise Frequency: 2-3X weekly Target heart range: Heart rate range: SpO2 Range: WENDY RPD: 3-4 Time (minutes): O2 use with exercise: 4-5lpm Current HEP: Recumbent bike L1.0 RPD 3 15 2-3X weekly UBE L1.0 RPD 2 17 min 2X weekly Nustep PRD 3 32 min 2-3X weekly Pt is progressing nicely since returning from hospitalization. Goal is to increase level and Mets within the next several weeks. [employer] Fusion Developer Review I have reviewed the outcome re-assessment and treatment plan. The treatment plan and goals support the patient's needs and abilities, and thereby recommend that the exercise plan be completed as documented. Special precautions or modifications to the treatment plan include:
--- NOTE | 2024-01-30 07:11 | MHC.PR.DC ---
[address] [phone] F: [phone] Pulmonary Rehabilitation Discharge Mario Dolan Jr is a 63 year old (M) who was referred to the Pulmonary Rehabilitation program by Alea Hull. This patient who has a primary diagnosis of COPD has completed 13 sessions of the pulmonary rehabilitation program with monitored exercise and education to optimize both physical and social performance, autonomy, increase strength and endurance, and control dypsnea. They were evaluated on . Discharge summary and tests are below. Initial MRC Score: 3 Discharge MRC Score: Six Minute Walk Test Initial 6MWT Discharge 6MWT Supplemental Oxygen O2 L/min: 2.5lpm FiO2: O2 L/min: FiO2: Resting Vitals SpO2: 85% BP: mmHg HR: 62 bpm SpO2: % BP: mmHg HR: bpm Total Distance (ft) 780 Number/ Time of Rests (sec) WENDY 2 Walk Vitals SpO2: 89 HR: 110 SpO2: HR: Post-Walk Vitals SpO2: 90 BP: HR: 91 SpO2: BP: HR: Performance Observations Pt walked moderate pace unassisted. At minute 2 patient desatted to 85%. RT increased o2 to maintain sp02 88%-92%. Pt required 7lpm of supplemental o2 for the duration of the walk. PT Dyspnea scale 2-3. Pt denies dizziness, pain, fatigue. Pt to have first visit with Dr. Mills within the next few weeks. MD notified, as new 02 script will need a follow up. pt did not complete 6mwt. pt stopped participating in rehab Exercise Assessment on : Pre-exercise Post-exercise SpO2 Heart Rate WENDY METS Exercise Assessment on : Pre-exercise Post-exercise SpO2 Heart Rate WENDY METS Exercise Assessment on : Pre-exercise Post-exercise SpO2 Heart Rate WENDY METS Topic Education/Progress Progress Comments Education Demonstrates disease self-management strategies Using medications as directed Mobilizes secretions successfully Demonstrates strategies for anxiety and depression management Education ongoing on pursed lip breathing/ diaphragmatic breathing. Will be ongoing. Hypoxia Current oxygen Use: 4LPM Demonstrates knowledge of O2 prescription at rest & with activity Demonstrates knowledge of O2 safety Pt non adherent; notify MD Pt using per Rx 100% of time Ongoing education on the proper amount and use of oxygen with rest and exertion. Progression Psychosocial PHQ-9 Score: 3 Pt states he is not depressed. Education ongoing on coping skills and dealing with worry Activities of Daily Living Management of ADL with Control of Dyspnea Appropriate Stair Climbing Progressing Nutrition and Weight Managment Current weight: 330 BMI: Weight change: Weight Loss Patient hospitalized for fluid overload. Pt dieresed and then returned Tobacco Stages of Change: Tobacco Use: Cigerettes/Day: Any nicotine replacement: Any cessation medication: Smoking quit date: Smokeless tobacco use and amount: Pt is a non smoker Medications Inhaled Medications Patient verbalizes correct technique of: MDI: Yes DPI: SMI: NEBULIZER: Yes Education ongoing on SVN/MDI/DPI. Secretion Management Patient provides adequate return demonstration of: Controlled cough: Mazariegos cough: Acapella/ PEP Device: CPT: Sputum management: Education ongoing. Exercise and Fitness Aerobic Exercise Frequency: 2-3X weekly Target heart range: Heart rate range: SpO2 Range: WENDY RPD: 3-4 Time (minutes): O2 use with exercise: 4-5lpm Current HEP: Recumbent bike L1.0 RPD 3 15 2-3X weekly UBE L1.0 RPD 2 17 min 2X weekly Nustep PRD 3 32 min 2-3X weekly Pt is progressing nicely since returning from hospitalization. Goal is to increase level and Mets within the next several weeks. Discharge Assessment: Discharge Reason: Pt did not complete pulmonary rehab sessions Discharge Recommendation: :
== END 2024-01-30 07:15 | disposition home or self-care (01) ==
LOC: HO.PR 07:00
PROVIDERS: PCP Internal Medicine; Visit Provider Internal Medicine
DX: J44.9 Chronic obstructive pulmonary disease, unspecified (principal); J96.10 Chronic respiratory failure, unspecified whether with hypoxia or hypercapnia
CPT/HCPCS: 94625

== ENCOUNTER 2023-11-26 08:05 | Outpatient (REF) | payer BC, SELFPAY | END 2023-11-26 08:06 | disposition home or self-care (01) | LOC: HO.CT 08:05 | PROVIDERS: PCP Internal Medicine; Visit Provider Hospitalist | DX: R91.8 Other nonspecific abnormal finding of lung field (principal) | CPT/HCPCS: 71250 ==

== ENCOUNTER 2024-01-02 14:07 | Outpatient (AMB) | payer BC, SELFPAY ==
[2024-01-02 14:08] VITALS: BMI 45.7
--- NOTE | 2024-01-02 14:08 | MHC.OFFVIS ---
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 The patient states his sob has been getting progressively worse over last 2 months. initially on exertion, now at rest. has been needing to increase his home o2 supplement. recent PFTs may 2023 showed severe obstruction with FEV1 - 21%. The patient typically responds well to prednisone. He started feeling better. During the hospitalization he did have an ABG demonstrating a chronic hypercarbic respiratory failure secondary to likely has advanced COPD. He does use a BiPAP or a noninvasive ventilator at home. Will try to get a download from his [employer] company, [employer]. In the meantime he is completing the prednisone taper. Will go ahead and optimize his respiratory therapy by switching over to Trelegy. She continues use the oxygen with good effect. He was participating in pulmonary rehabilitation when he was sent to the ER. He is going to try to get back to pulmonary rehabilitation at this time. If the patient is not better once he completes the prednisone and would like to restart his lower dose he will call for additional prednisone. 10/15/2023 the patient is here for hospital follow-up visit. Apparently he ended up developing an upper respiratory illness and subsequently worsening worsening respiratory symptoms. He was admitted to the [facility]. Viral swab positive for enterovirus. The patient also was noted to have a chest x-ray perihilar congestion consistent with mild heart failure. He was placed on diuretics. The patient was placed on prednisone. He continue using his BiPAP. He did have a blood gas in the hospital demonstrating chronic hypercarbic respiratory failure. He has been using his AVAP. [employer] is [employer]. Will request a download at this time and further adjust the AVAP accordingly. We did review his imaging studies demonstrating the mild heart failure. The patient understands that he will continue with a low-sodium diet. New continue with current respiratory therapy. 01/02/2024 the patient has a telehealth visit today. Recently he developed COVID-19. The patient does take Eliquis and also he is on antiarrhythmic agents. Therefore we placed him on Mulnopinivir. the patient completed a 5 day course any responded very well to it. His chest congestion is improved his breathing is also improved. Overall he is in recovery. He continues use the noninvasive ventilator at nighttime. He has been affecting beneficial. He does use it for more than 4 hours a night. Will plan to repeat his venous blood gas to assess his CO2 and make sure that is responding well to the noninvasive ventilator. In addition to that he continues use the oxygen. He did use the oxygen more often when was sick with COVID-19. Right now is closer to his baseline. The patient does have increased chest congestion so therefore will go ahead and start him on doxycycline case symptoms worsen. The patient should also have some prednisone available in case develops reactive airway disease after having COVID. At this point he can hold off unless his symptoms worsen as well. Will follow-up in 3-4 months and at that point will review his blood work. [facility] Medical History Hypoventilation associated with obesity syndrome DEVIN (obstructive sleep apnea) COPD (chronic obstructive pulmonary disease) Chronic diastolic heart failure Acute on chronic diastolic (congestive) heart failure Acute exacerbation of chronic obstructive airways disease Hyperthyroidism Venous insufficiency of both lower extremities Chronic respiratory failure Hx pulmonary embolism Paroxysmal atrial flutter PAF (paroxysmal atrial fibrillation) Lung mass Surgical History H/O cardiac radiofrequency ablation Family History Father Bone cancer Mother COPD (chronic obstructive pulmonary disease) Social History Household Members: Spouse Household Members Other:: Housing: House Do you presently have visiting nurse or other home services: No Unable to assess alcohol history related to: Unknown Alcohol intake: current Alcohol intake frequency: holidays/special occasions only Patient Tobacco Use Status: Former Tobacco user Years Smoked: 30 years e-Cigarette/Vaping Use: Never Used Second Hand Smoke Exposure: No Advance Directives Date on File: 07/14/23 service: No Current occupational status: employed Cognitive needs: No Hearing needs: No Vision needs: Yes Review of Systems Const Denies fever(s) Eyes Denies exophthalmos Card Denies chest pain and Reports dyspnea on exertion Resp Reports chest congestion, Reports cough, Reports dyspnea on exertion and Denies wheezing GI Reports no additional complaints Musc Reports no additional complaints Skin/Breast Denies rash Neuro Reports no additional complaints Venu/Lymph Denies lymphadenopathy Aller/Immun Denies wheezing Physical Exam Vital Signs: BMI result Body Mass Index 45.7 Const General: cooperative Orientation/consciousness: patient oriented x3 Resp Effort & Inspection: normal respiratory effort and able to speak in complete sentences Neuro General: patient oriented x3 Assessment & Plan Assessment & Plan (1) COPD (chronic obstructive pulmonary disease): Comment: ex TOBACCO 2007 Code(s): J44.9 - Chronic obstructive pulmonary disease, unspecified Qualifiers: COPD type: COPD with acute exacerbation Qualified Code(s): J44.1 - Chronic obstructive pulmonary disease with (acute) exacerbation (2) Chronic respiratory failure: Comment: on supplemental O2 PRN Code(s): J96.10 - Chronic respiratory failure, unspecified whether with hypoxia or hypercapnia Qualifiers: Respiratory failure complication: hypoxia and hypercapnia Qualified Code(s): J96.11 - Chronic respiratory failure with hypoxia; J96.12 - Chronic respiratory failure with hypercapnia (3) Hx pulmonary embolism: Comment: 2013, on lifetime anticoagulation Code(s): Z86.711 - Personal history of pulmonary embolism (4) Sleep apnea: Code(s): G47.30 - Sleep apnea, unspecified Qualifiers: Sleep apnea type: obstructive Qualified Code(s): G47.33 - Obstructive sleep apnea (adult) (pediatric) (5) Lung mass: Code(s): R91.8 - Other nonspecific abnormal finding of lung field Plan continue Trelegy Continue Daliresp REY as needed start Doxycycline and prednisone if worsen Bloodwork/blood gas prior to next visit continue oxygen supplementation Astral AVAPS at night, will request a download from his [employer] ([employer]) restart Pulmonary rehab when better continue Eliquis diureses as tolerated lung mass likely rounded atelectasis associated with a calcified pleural plaque. Will need close f/u. Likely Oct 2023 F/U 3-4 months Orders: Orders Venous Blood Gas 01/02/24 J44.9 - Chronic obstructive pulmonary disease, unspecified Basic Metabolic Panel 01/02/24 J44.9 - Chronic obstructive pulmonary disease, unspecified Medications: New mometasone-formoterol 200-5 mcg/actuation (Dulera) 2 puffs inhalation Q12H 90 days 13 grams 3RF doxycycline hyclate 100 mg PO BID 10 days 20 caps 0RF prednisone PO daily; Take 2 tabs daily x 5 days, then 1 tablet daily x 5 days 10 days 15 tabs 0RF Telehealth Telehealth Location of provider rendering services: practice address Location of patient: address on file Patient Identification confirmed using: Name, : Yes Telehealth method: voice only Patient verbally consented to treatment: Yes Patient verbally consented to billing insurance company: Yes Patient informed of any privacy concerns related to visit: Yes Coding Level of Care Code Tele Est Pt Level 4 ([id number]) Diagnoses Chronic obstructive pulmonary disease with acute exacerbation J44.1 COPD type: COPD with acute exacerbation Chronic respiratory failure with hypoxia and hypercapnia J96.11; J96.12 Respiratory failure complication: hypoxia and hypercapnia Hx pulmonary embolism Z86.711 Obstructive sleep apnea syndrome G47.33 Sleep apnea type: obstructive Lung mass R91.8 Time Spent (min) 15
== END 2024-01-02 14:26 | disposition home or self-care (01) ==
LOC: HO.HPS 14:07
PROVIDERS: PCP Internal Medicine; Visit Provider Hospitalist
DX: J44.1 Chronic obstructive pulmonary disease with (acute) exacerbation (principal); J96.11 Chronic respiratory failure with hypoxia; J96.12 Chronic respiratory failure with hypercapnia; Z86.711 Personal history of pulmonary embolism; G47.33 Obstructive sleep apnea (adult) (pediatric); R91.8 Other nonspecific abnormal finding of lung field
CPT/HCPCS: 99442

== ENCOUNTER → 2024-01-02 14:07 | Outpatient (BNVA) | payer BC, SELFPAY | PROVIDERS: PCP Internal Medicine; Visit Provider Hospitalist ==

== ENCOUNTER 2024-01-12 16:16 | Emergency (ER) | payer BC, SELFPAY ==
--- NOTE | ~2024-01-12 | CT_ITS ---
EXAMINATION: CT HEAD WITHOUT CONTRAST CT CERVICAL SPINE WITHOUT CONTRAST CLINICAL INFORMATION: Pain status post fall. COMPARISON: No relevant prior imaging. TECHNIQUE: Beam Dyer Recessed Vat images were obtained. CT imaging of the head and cervical spinal was performed without contrast. Data was reformatted into multiplanar images at the acquisition workstation. This CT examination was performed using dose optimization techniques as appropriate, including one or more of the following: Automated exposure control, iterative reconstruction, and adjustment of technique factors (mA and/or kVp) according to patient size (this includes techniques or standardized protocols for targeted exams where dose is matched to indication/reason for exam). Fleischner Society criteria for the followup of incidental pulmonary nodules was implemented if appropriate. DLP: 1547 mGy-cm. FINDINGS: Head: There is no acute intracranial hemorrhage or abnormal extra axial collection. No intracranial mass effect or midline shift. Lateral and third ventricles are normal. No hydrocephalus. Scattered nonspecific foci of hypoattenuation are visualized within the perivertebral white matter. Benitez-white matter projection is otherwise preserved and there is no evidence of acute territorial infarct. The calvarium and skull base are intact. Mastoid air cells and middle ear cavities are well-aerated. No active paranasal sinus disease. Cervical spine: There is a slight anterolisthesis of C7 on T1 that appears to be related to degenerative changes at this level. There is also a nonspecific reversal of the cervical lordosis. Mild chronic anterior wedging of the C5 vertebral body. Vertebral heights are otherwise maintained. There is a retrotracheal course of the right carotid artery. No abnormal prevertebral soft tissue swelling. There is loss of intervertebral disc height with associated sclerotic degenerative endplate changes and hypertrophic disc osteophyte spurring at multiple levels. Grossly no spinal canal compromise. Visualized soft tissues of the neck are unremarkable. Lung apices are clear. CT/CT head/brain wo IV con IMPRESSION: Head: No acute intracranial hemorrhage. There are scattered chronic small vessel ischemic changes within the periventricular white matter. Grossly no evidence of acute territorial infarct. Cervical Spine: There is multilevel degenerative spondylosis of the cervical spine. No evidence of acute fracture and no posttraumatic spinal subluxation.
--- NOTE | ~2024-01-12 | CT_ITS ---
EXAMINATION: CT LOWER LEG LEFT WITH CONTRAST CLINICAL INFORMATION: Pain, injury COMPARISON: None TECHNIQUE: Multidetector volumetric images of the left lower extremity were obtained from the distal thigh through the ankle following administration 85 mL of Omnipaque 350 intravenous contrast. Sagittal and coronal reformatted images were obtained on the technologist's workstation. This CT examination was performed using dose optimization techniques as appropriate, variously including the following: *Automated exposure control *Adjustment of mA and/or kV according to patient size (this includes techniques or standardized protocols for targeted exams where dose is matched to indication/reason for exam; i.e. extremities or head) *Use of iterative reconstruction technique DLP: 323 mGy-cm FINDINGS: Articular alignment throughout the included left lower extremity is anatomic. Mild osteophyte formation noted at the knee and ankle. No significant knee effusion. Large amount of soft tissue attenuation in the prepatellar region extending into the medial distal thigh and infrapatellar region favors hematoma in the setting of injury. Additional deep subcutaneous hematoma is present in the medial and anterolateral aspects of the proximal to mid lower leg. There is a region of curvilinear high attenuation within the hematoma, such as on sagittal image 41 in the anterolateral proximal calf, suspicious for active hemorrhage/contrast extravasation. There is associated circumferential subcutaneous edema throughout the calf. CT/CT lower leg LT w IV con IMPRESSION: Large hematoma in the prepatellar region extending into the medial distal thigh and infrapatellar region. Additional deep subcutaneous hematoma in the medial and anterolateral aspects of the proximal to mid lower leg. Curvilinear region of high attenuation within the hematoma in the anterolateral proximal calf is suspicious for active hemorrhage/contrast extravasation.
--- NOTE | ~2024-01-12 | CT_ITS ---
EXAMINATION: CT HEAD WITHOUT CONTRAST CT CERVICAL SPINE WITHOUT CONTRAST CLINICAL INFORMATION: Pain status post fall. COMPARISON: No relevant prior imaging. TECHNIQUE: Ambulance Assistant images were obtained. CT imaging of the head and cervical spinal was performed without contrast. Data was reformatted into multiplanar images at the acquisition workstation. This CT examination was performed using dose optimization techniques as appropriate, including one or more of the following: Automated exposure control, iterative reconstruction, and adjustment of technique factors (mA and/or kVp) according to patient size (this includes techniques or standardized protocols for targeted exams where dose is matched to indication/reason for exam). Fleischner Society criteria for the followup of incidental pulmonary nodules was implemented if appropriate. DLP: 1547 mGy-cm. FINDINGS: Head: There is no acute intracranial hemorrhage or abnormal extra axial collection. No intracranial mass effect or midline shift. Lateral and third ventricles are normal. No hydrocephalus. Scattered nonspecific foci of hypoattenuation are visualized within the perivertebral white matter. Benitez-white matter projection is otherwise preserved and there is no evidence of acute territorial infarct. The calvarium and skull base are intact. Mastoid air cells and middle ear cavities are well-aerated. No active paranasal sinus disease. Cervical spine: There is a slight anterolisthesis of C7 on T1 that appears to be related to degenerative changes at this level. There is also a nonspecific reversal of the cervical lordosis. Mild chronic anterior wedging of the C5 vertebral body. Vertebral heights are otherwise maintained. There is a retrotracheal course of the right carotid artery. No abnormal prevertebral soft tissue swelling. There is loss of intervertebral disc height with associated sclerotic degenerative endplate changes and hypertrophic disc osteophyte spurring at multiple levels. Grossly no spinal canal compromise. Visualized soft tissues of the neck are unremarkable. Lung apices are clear. CT/CT cervical spine wo IV con IMPRESSION: Head: No acute intracranial hemorrhage. There are scattered chronic small vessel ischemic changes within the periventricular white matter. Grossly no evidence of acute territorial infarct. Cervical Spine: There is multilevel degenerative spondylosis of the cervical spine. No evidence of acute fracture and no posttraumatic spinal subluxation.
[2024-01-12 16:41] VITALS: BP 152/95; PULSE 78; RESP 18; TEMP 36.8; O2SAT 88; BMI 45.9
--- NOTE | 2024-01-12 16:41 | ED.GENADULT ---
HPI - General Adult General Chief complaint: Fall Stated complaint: fell 01/12 left knee swollen Time Seen by Provider: 01/12/24 16:51 Source: patient, family and RN notes reviewed Mode of arrival: ambulatory Limitations: no limitations History of Present Illness HPI narrative: This is a 63-year-old male, with a history of paroxysmal atrial flutter and paroxysmal atrial fibrillation on Eliquis, COPD on 2 L O2, who presents to the emergency department with complaints of left knee and left leg pain status post mechanical fall which occurred at 1:00 p.m. patient states that he accidentally tripped and fell directly onto his left knee. He denies hitting his head or loss of consciousness. States that he was able to weight bear a little afterwards however states that he has been unable to bear weight on his left leg secondary to pain. He denies any headaches, dizziness, blurred vision, chest pain, shortness of breath, abdominal pain, nausea, vomiting or diarrhea. No other complaints or concerns at this time. MD complaint: Left leg pain Onset (ago): hour(s) Location: lower extremity Radiation: non-radiation Severity: severe Quality: burning and aching Pain Consistency: constant Related Data Home Medications Medication Instructions Recorded Confirmed albuterol sulfate 90 mcg/actuation 2 puff inhalation QID PRN Wheezing 07/01/22 10/06/23 aerosol inhaler cholecalciferol (vitamin D3) 25 25 mcg PO BEDTIME 07/01/22 10/06/23 mcg (1,000 unit) tablet multivitamin 1 tab PO BEDTIME 07/01/22 10/06/23 tiotropium bromide 2.5 1 puff inhalation BID 07/01/22 10/06/23 mcg/actuation mist for inhalation (Spiriva Respimat) methimazole 5 mg tablet 2.5 mg PO BEDTIME 04/24/23 10/06/23 acetaminophen 500 mg tablet 1,000 mg PO Q6H PRN Pain 07/08/23 10/06/23 azelastine 137 mcg (0.1 %) nasal 2 spray intranasal DAILY PRN 07/08/23 10/06/23 spray aerosol Allergy Symptoms budesonide-formoterol HFA 160 2 puff inhalation BID 07/08/23 10/06/23 mcg-4.5 mcg/actuation aerosol inhaler (Symbicort) metoprolol succinate 100 mg 100 mg PO BEDTIME 07/08/23 10/06/23 tablet,extended release 24 hr omeprazole magnesium 20 mg 20 mg PO DAILY@0630 07/08/23 10/06/23 capsule,delayed release roflumilast 500 mcg tablet 500 mcg PO BEDTIME 07/08/23 10/06/23 thiamine HCl (vitamin B1) 500 mg 500 mg PO BEDTIME 07/08/23 10/06/23 tablet vitamin E 268 mg (400 unit) capsule 268 mg PO BEDTIME 07/08/23 10/06/23 CPAP (CPAP Machine/Device) 07/21/23 09/10/23 Oxygen Home Use 07/21/23 09/10/23 nebulizers 07/21/23 09/10/23 apixaban 5 mg tablet (Eliquis) 5 mg PO BID 08/26/23 10/06/23 Previous Rx's Medication Instructions Recorded compr.stocking,knee,long,large #12 ea 04/24/23 dronedarone 400 mg tablet (Multaq) 400 mg PO BID 90 days #180 tabs 09/09/23 albuterol sulfate 2.5 mg/3 mL 2.5 mg (3 mL) inhalation BID 90 09/29/23 (0.083 %) solution for nebulization days #540 mL diltiazem HCl 240 mg capsule,24 240 mg PO BEDTIME #90 caps 09/29/23 hr,extended release acetazolamide 250 mg tablet 250 mg PO QAM #5 tabs 10/10/23 furosemide 40 mg tablet 40 mg PO BID edema #60 tabs 12/02/23 molnupiravir 200 mg capsule (EUA) 800 mg (4 x 200 mg) PO Q12H 5 days 12/30/23 #40 caps doxycycline hyclate 100 mg capsule 100 mg PO BID 10 days #20 caps 01/02/24 mometasone-formoterol HFA 200 2 puff inhalation Q12H 90 days #13 01/02/24 mcg-5 mcg/actuation aerosol grams inhaler (Dulera) prednisone 20 mg tablet See Rx Instructions PO DAILY 10 01/02/24 days #15 tabs Allergies Allergy/AdvReac Type Severity Reaction Status Date / Time No Known Allergies Allergy Verified 01/02/24 14:09 Review of Systems Review of Systems: Yes all other systems are reviewed and are negative Constitutional: Constitutional: Reports as per [facility] Past Medical History Medical History Hypoventilation associated with obesity syndrome DEVIN (obstructive sleep apnea) COPD (chronic obstructive pulmonary disease) Chronic diastolic heart failure Acute on chronic diastolic (congestive) heart failure Acute exacerbation of chronic obstructive airways disease Hyperthyroidism Venous insufficiency of both lower extremities Chronic respiratory failure Hx pulmonary embolism Paroxysmal atrial flutter PAF (paroxysmal atrial fibrillation) Lung mass Surgical History H/O cardiac radiofrequency ablation Family History Family History Father Bone cancer Mother COPD (chronic obstructive pulmonary disease) Social History Social History Household Members: Spouse Household Members Other:: Housing: House Do you presently have visiting nurse or other home services: No Unable to assess alcohol history related to: Unknown Alcohol intake: current Alcohol intake frequency: holidays/special occasions only Patient Tobacco Use Status: Former Tobacco user Years Smoked: 30 years Smoked in Last 30 Days: No e-Cigarette/Vaping Use: Never Used Second Hand Smoke Exposure: No Use of substances other than those prescribed or required for medical reasons: No Advance Directives: Yes Advance Directives on File: Yes Advance Directives Date on File: 07/14/23 service: No Current occupational status: employed Cognitive needs: No Hearing needs: No Vision needs: Yes Physical Exam ED Vital Signs: Vital Signs - 24 hr 01/12/24 16:41 01/12/24 20:04 Temperature 98.3 F 98.8 F Pulse Rate 78 74 Respiratory Rate 18 16 Blood Pressure 152/95 H 158/87 H Pulse Oximetry 88 L 93 Oxygen Delivery Method Nasal Cannula Nasal Cannula BMI result Body Mass Index 45.9 Const General: cooperative, comfortable and no acute distress Orientation/consciousness: patient oriented x3 Limitations: no limitations HENMT Head: Yes normal to inspection, Yes normocephalic and Yes atraumatic Ears: hearing grossly normal bilaterally General nose exam: Normal external nose present Face and sinus: Yes normal facial exam Mouth: Normal oral and palatal mucosa present, oropharynx normal and moist mucous membranes Throat: Yes posterior oropharynx normal Eyes General: appearance normal, both eyes and all related structures Eyelids: Yes eyelids normal Conjunctivae: conjunctivae normal Sclerae: sclerae normal Pupils: Equal, round and reactive pupils present EOM: EOMs intact bilaterally Neck Neck: Yes normal visual inspection, Yes full ROM and Yes no lymphadenopathy Lymphatic: no lymphadenopathy noted Chest Chest palpation & inspection: normal inspection of the chest Resp Effort & Inspection: normal respiratory effort and able to speak in complete sentences Auscultation: clear to auscultation bilaterally, no crackles, no rales, no rhonchi and no wheezes Cardio Rate: regular rate Rhythm: regular rhythm Heart sounds: S1 normal heart sound present and S2 normal heart sound present GI Inspection: Yes normal to inspection Skin General skin exam: no rashes or lesions noted Trauma: no lacerations or abrasions Wounds: no wounds Neuro General: patient oriented x3, moves all extremities and Unable to assess gait Cranial nerves: Yes CN's II-XII intact bilaterally and Yes Equal, round and reactive pupils present Cognition (Neuro): normal cognition Gait exam (Neuro): Unable to assess gait Motor exam (neuro): 5/5 motor strength present throughout and Pronator motor function not present Extrem Other: Left knee is moderately edematous, with ecchymosis noted throughout the joint, positive patellar ballottement, tenderness palpation along the medial and lateral joint line, ecchymosis extending to the proximal tib-fib. Tenderness to palpation along the distal femur, patella, and proximal tib-fib. Distal pulse 2 +, no calf tenderness palpation. Left thigh extending into the proximal tib-fib region leg is hard to the touch, no pitting edema noted. Full range of motion of the left ankle joint. Limited range of motion of the left knee secondary to pain and swelling General: Yes normal to inspection Right upper extremity: normal to inspection Left upper extremity: normal to inspection Right lower extremity: normal to inspection Course Course Course Narrative: RME performed by Chelsey Barajas PA-C. Patient is a 63 year old assigned male at presenting to the emergency department with left knee pain after a fall. Patient is on an anti-coagulant medication. Detailed physical exam and review of systems are deferred to the green hide inspector. Imaging ordered. Patient placed back in the waiting room pending room availability and results. Reevaluation(s) Reevaluation #1: Patient resting comfortably, CT head and neck show no acute abnormalities. CT of left leg still pending Time: 18:56 Reevaluation #2: CT of the leg shows a large hematoma in the prepatellar region extending into the medial distal thigh and infrapatellar region there has also a curvilinear region of high attenuation within the hematoma in the anterior or lateral proximal calf that is suspicious for active hemorrhage/contrast extravasation. I discussed this finding with my attending physician, Dr. Patel who recommends IR intervention, IR is not available at this time given after hours. Given that this is a trauma, will consult [facility] for possible transfer. Discussed these findings with the patient and who understand and agree with his current plan. Patient out to [facility] trauma, awaiting for return phone call. Time: 19:54 Reevaluation #3: Spoke to Dr. Mckeon, recommending reverse anticoagulants, and will be transferred as a category 2 [address], [address]. Mckeon is the accepting physician. Discussed this with my attending physician, Dr. Patel. Kcentra was ordered. Discussed this with patient as well as at bedside. Transfer of care initiated Time: 20:20 Medications Administered Discontinued Medications Generic Name Dose Route Start Last Admin Trade Name Freq PRN Reason Stop Dose Admin Iohexol 100 ml 01/12/24 17:58 01/12/24 17:58 Iohexol 350 Mg/Ml 100 Ml Infus..Btl IV 01/12/24 17:59 85 ml ONCE ONE Administration Morphine Sulfate 4 mg 01/12/24 17:48 01/12/24 18:16 Morphine Sulfate 4 Mg/Ml Cartridge IVPUSH 01/12/24 17:49 4 mg ONCE ONE Administration Protocol Medical Decision Making Medical Decision Making [facility] Narrative: This is a 63-year-old male, with a history of paroxysmal atrial flutter and paroxysmal atrial fibrillation on Eliquis, COPD on 2 L O2, who presents to the emergency department with complaints of left knee and left leg pain status post mechanical fall which occurred at 1:00 p.m. patient states that he accidentally tripped and fell directly onto his left leg. On arrival, oxygen saturation 88% on room air, he is typically on 2 L at home. Patient placed on 2 L nasal cannula. Blood pressure mildly elevated at 152/95. He has no chest pain or shortness a breath. No dizziness. He is neurologically intact. Patient has diffuse ecchymosis, edema, and leg feels hard to the touch. Given these physical exam findings, I am concerned for compartment syndrome versus hematoma. Patient was seen and evaluated by my attending physician, Dr. Patel, who agrees getting a CT scan of the lower extremity with IV contrast will be beneficial. Given patient is on anticoagulants with a mechanical fall, will obtain head and neck CT. Labs, UA also ordered. Differential Diagnosis Differential Diagnoses: The differential diagnosis associated with the presentation includes Fracture, contusion, sprain, strain, compartment syndrome, hematoma, extravasation Admission/Observation Consideration of admission/observation: Escalation of care including admission/observation considered Lab Data MDM Lab Attestation statement: I reviewed the patient's lab results. Slight leukocytosis, H&H she within normal limits, hyperkalemia at 5.5 BUN 20, creatinine 0.73. 01/12/24 17:18 01/12/24 17:18 Labs: Lab Results 01/12/24 01/12/24 Range/Units 17:18 17:28 WBC 13.0 H (4.8-10.8) X10*3/uL RBC 4.98 (4.60-5.80) X10*6/uL Hgb 13.9 L (14.0-18.0) g/dl Hct 45.2 (42.0-52.0) % MCV 90.8 (80.0-98.0) fL MCH 27.9 (27.0-33.0) pg MCHC 30.8 L (31.0-36.0) g/dl RDW 16.6 H (11.0-16.0) % Plt Count 222 (160-400) X10*3/uL MPV 11.4 (9.4-12.4) fL Immature Gran % (Auto) 0.6 H (0.0-0.4) % Neut % (Auto) 82.9 H (45-73) % Lymph % (Auto) 9.4 L (20-40) % [place] % (Auto) 6.5 (2-11) % Eos % (Auto) 0.1 (0-4) % Baso % (Auto) 0.5 (0-2) % Lymph # (Auto) 1.2 (1.2-4.9) X10*3/uL [place] # (Auto) 0.9 (0.1-1.2) X10*3/uL Eos # (Auto) 0.0 (0.0-0.4) X10*3/uL Baso # (Auto) 0.1 (0.0-0.2) X10*3/uL Abs Immat Gran (auto) 0.08 H (0.00-0.03) X10*3/uL Absolute Neuts (auto) 10.8 H (2.0-8.3) x10*3/uL Absolute Nucleated RBC 0.000 (0.0-0.012) X10*3/uL Nucleated RBC % (auto) 0.0 (0.0-0.2) /100WBC PT 12.1 (11.1-13.3) SEC INR 1.0 (0.9-1.1) APTT 30.9 (26.0-36.8) SEC Sodium 144 (135-145) mmol/L Potassium 5.5 H (3.3-5.1) mmol/L Chloride 98 (96-108) mmol/L Carbon Dioxide 37 H (22-29) mmol/L Anion Gap 15 (12-20) BUN 20 H (9-16) mg/dL Creatinine 0.73 (0.5-1.4) mg/dL Estim Creat Clear Calc 151.1 Estimated GFR > 60 Random Glucose 106 (60-115) mg/dL Calcium 8.8 D (8.4-10.2) mg/dL Total Bilirubin 0.5 (0.0-1.0) mg/dL AST 23 (5-37) U/L ALT 29 (0-40) U/L Alkaline Phosphatase 51 (39-117) U/L Total Protein 6.4 L (6.5-8.0) g/dL Albumin 3.9 (3.5-5.0) g/dL Urine Color Yellow Urine Appearance Clear Urine pH 6.0 (5.0-9.0) Ur Specific Mobile 1.015 (1.005-1.025) Urine Protein 100 (2+) H (Neg-Trace) mg/dL Urine Glucose (UA) Negative (Negative) mg/dL Urine Ketones Negative (Negative) mg/dL Urine Blood Negative (Negative) Urine Nitrite Negative (Negative) Ur Leukocyte Esterase Negative (Negative) Urine RBC 0-2 (0-2) /HPF Urine WBC 0-5 (0-5) /HPF Ur Squamous Epith Cells 0-2 (0-2) /HPF Urine Bacteria None Seen (None Seen) Hyaline Casts 0-2 (0-2) /LPF Radiology Impression Discussion of test interpretation with radiology: I have reviewed the radiologist's reading. Radiologist Impression: EXAMINATION: CT LOWER LEG LEFT WITH CONTRAST CLINICAL INFORMATION: Pain, injury COMPARISON: None TECHNIQUE: Multidetector volumetric images of the left lower extremity were obtained from the distal thigh through the ankle following administration 85 mL of Omnipaque 350 intravenous contrast. Sagittal and coronal reformatted images were obtained on the technologist's workstation. This CT examination was performed using dose optimization techniques as appropriate, variously including the following: *Automated exposure control *Adjustment of mA and/or kV according to patient size (this includes techniques or standardized protocols for targeted exams where dose is matched to indication/reason for exam; i.e. extremities or head) *Use of iterative reconstruction technique DLP: 323 mGy-cm FINDINGS: Articular alignment throughout the included left lower extremity is anatomic. Mild osteophyte formation noted at the knee and ankle. No significant knee effusion. Large amount of soft tissue attenuation in the prepatellar region extending into the medial distal thigh and infrapatellar region favors hematoma in the setting of injury. Additional deep subcutaneous hematoma is present in the medial and anterolateral aspects of the proximal to mid lower leg. There is a region of curvilinear high attenuation within the hematoma, such as on sagittal image 41 in the anterolateral proximal calf, suspicious for active hemorrhage/contrast extravasation. There is associated circumferential subcutaneous edema throughout the calf. CT/CT lower leg LT w IV con IMPRESSION: Large hematoma in the prepatellar region extending into the medial distal thigh and infrapatellar region. Additional deep subcutaneous hematoma in the medial and anterolateral aspects of the proximal to mid lower leg. Curvilinear region of high attenuation within the hematoma in the anterolateral proximal calf is suspicious for active hemorrhage/contrast extravasation. Dictated By: Ramakrishna Khan MD EXAMINATION: CT HEAD WITHOUT CONTRAST CT CERVICAL SPINE WITHOUT CONTRAST CLINICAL INFORMATION: Pain status post fall. COMPARISON: No relevant prior imaging. TECHNIQUE: Program Support Assistant images were obtained. CT imaging of the head and cervical spinal was performed without contrast. Data was reformatted into multiplanar images at the acquisition workstation. This CT examination was performed using dose optimization techniques as appropriate, including one or more of the following: Automated exposure control, iterative reconstruction, and adjustment of technique factors (mA and/or kVp) according to patient size (this includes techniques or standardized protocols for targeted exams where dose is matched to indication/reason for exam). Fleischner Society criteria for the followup of incidental pulmonary nodules was implemented if appropriate. DLP: 1547 mGy-cm. FINDINGS: Head: There is no acute intracranial hemorrhage or abnormal extra axial collection. No intracranial mass effect or midline shift. Lateral and third ventricles are normal. No hydrocephalus. Scattered nonspecific foci of hypoattenuation are visualized within the perivertebral white matter. Benitez-white matter projection is otherwise preserved and there is no evidence of acute territorial infarct. The calvarium and skull base are intact. Mastoid air cells and middle ear cavities are well-aerated. No active paranasal sinus disease. Cervical spine: There is a slight anterolisthesis of C7 on T1 that appears to be related to degenerative changes at this level. There is also a nonspecific reversal of the cervical lordosis. Mild chronic anterior wedging of the C5 vertebral body. Vertebral heights are otherwise maintained. There is a retrotracheal course of the right carotid artery. No abnormal prevertebral soft tissue swelling. There is loss of intervertebral disc height with associated sclerotic degenerative endplate changes and hypertrophic disc osteophyte spurring at multiple levels. Grossly no spinal canal compromise. Visualized soft tissues of the neck are unremarkable. Lung apices are clear. CT/CT cervical spine wo IV con IMPRESSION: Head: No acute intracranial hemorrhage. There are scattered chronic small vessel ischemic changes within the periventricular white matter. Grossly no evidence of acute territorial infarct. Cervical Spine: There is multilevel degenerative spondylosis of the cervical spine. No evidence of acute fracture and no posttraumatic spinal subluxation. Dictated By: Tre Sylvester MD Independent Historian Clinical information obtained from an independent historian. History obtained from or confirmed by: Spouse Prescription Management I considered prescription management with: Pain Medication Chronic Conditions Patient?s care impacted by: Other (Paroxysmal atrial flutter and fibrillation on Eliquis) Critical Care Time Critical Care Time Critical Care Time: Yes Total Critical Care Time: 45 Attestation: I have personally provided critical care time exclusive of time spent on separately billable procedures. Time includes review of lab data, radiology results, discussion with consultants, and monitoring for potential decompensation. Intervention performed as documented. Discharge Plan Discharge Clinical Impression: Hematoma of left lower leg, Extravasation accident Patient Disposition: [facility] Transfer Details: Category 2 trauma, Dr. Mckeon accepting physician. Prescriptions: No Action diltiazem HCl 240 mg capsule,extended release 24 hr 240 mg PO BEDTIME Qty: 90 3RF albuterol sulfate 2.5 mg /3 mL (0.083 %) solution for nebulization 2.5 mg INHALATION BID 90 Days Qty: 540 3RF furosemide 40 mg tablet 40 mg PO BID Qty: 60 5RF molnupiravir 200 mg capsule 800 mg PO Q12H 5 Days Qty: 40 0RF multivitamin Tablet 1 tab PO BEDTIME albuterol sulfate 90 mcg/actuation Hfa Aerosol Inhaler 2 puff INHALATION QID PRN (Reason: Wheezing) cholecalciferol (vitamin D3) 25 mcg (1,000 unit) Tablet 25 mcg PO BEDTIME Spiriva Respimat 2.5 mcg/actuation Mist 1 puff INHALATION BID methimazole 5 mg tablet 2.5 mg PO BEDTIME metoprolol succinate 100 mg tablet extended release 24 hr 100 mg PO BEDTIME roflumilast 500 mcg tablet 500 mcg PO BEDTIME thiamine HCl (vitamin B1) 500 mg Tablet 500 mg PO BEDTIME acetaminophen 500 mg Tablet 1,000 mg PO Q6H PRN (Reason: Pain) azelastine 137 mcg (0.1 %) aerosol,spray 2 spray intranasal DAILY PRN (Reason: Allergy Symptoms) vitamin E 268 mg (400 unit) Capsule 268 mg PO BEDTIME budesonide-formoterol [Symbicort] 160-4.5 mcg/actuation Hfa Aerosol Inhaler 2 puff INHALATION BID omeprazole magnesium 20 mg Capsule,Delayed Release(Dr/Ec) 20 mg PO DAILY@0630 Eliquis 5 mg tablet 5 mg PO BID acetazolamide 250 mg tablet 250 mg PO QAM Qty: 5 0RF (DME) compr.stocking,knee,long,large Misc See Rx Instructions .Route Qty: 12 0RF Rx Instructions: As directed (DME) CPAP Machine/Device Device See Rx Instructions .Route Rx Instructions: As directed (DME) Oxygen Home Use Kit See Rx Instructions .Route Rx Instructions: As directed (DME) nebulizers Misc See Rx Instructions .Route Rx Instructions: As directed doxycycline hyclate 100 mg capsule 100 mg PO BID 10 Days Qty: 20 0RF prednisone 20 mg tablet See Rx Instructions PO DAILY 10 Days Qty: 15 0RF Rx Instructions: PO daily; Take 2 tabs daily x 5 days, then 1 tablet daily x 5 days Dulera 200-5 mcg/actuation HFA aerosol inhaler 2 puff inhalation Q12H 90 Days Qty: 13 3RF Multaq 400 mg tablet 400 mg PO BID 90 Days Qty: 180 3RF Rx Instructions: must administer with a meal/food
[2024-01-12 17:37] LABS: MANUAL DIFF FLAG NO
[2024-01-12 17:46] LABS: Basophils Absolute Auto 0.1 X10*3/uL (0.0-0.2); Basophils Percent Auto 0.5 % (0-2); Eosinophils Percent Auto 0.1 % (0-4); Hematocrit 45.2 % (42.0-52.0); Hemoglobin 13.9 g/dl (14.0-18.0); Imm Gran Abs Auto 0.08 X10*3/uL (0.00-0.03); Imm Gran Pct Auto 0.6 % (0.0-0.4); Lymphocytes Absolute Auto 1.2 X10*3/uL (1.2-4.9); Lymphocytes Percent Auto 9.4 % (20-40); Mean Corpuscular HGB Conc 30.8 g/dl (31.0-36.0); Mean Corpuscular Hemoglobin 27.9 pg (27.0-33.0); Mean Corpuscular Volume 90.8 fL (80.0-98.0); Mean Platelet Volume 11.4 fL (9.4-12.4); Monocytes Absolute Auto 0.9 X10*3/uL (0.1-1.2); Monocytes Percent Auto 6.5 % (2-11); Neutrophils Absolute Auto 10.8 x10*3/uL (2.0-8.3); Neutrophils Percent Auto 82.9 % (45-73); Platelet Count 222 X10*3/uL (160-400); Red Blood Count 4.98 X10*6/uL (4.60-5.80); Red Cell Distribution Width 16.6 % (11.0-16.0)
--- OUTSIDE RECORDS SUMMARY | 2024-01-12 17:47 | XMS_ITS | Continuity of Care Document ---
Author Name [facility] Address [address] [place] [address] Organization [facility] Address [address] [place] [address] Support Name Relationship Address Phone Lissy Encarnacion [address] [place] [address] Rachel Hidalgo Primary Care Provider 1 [facility] [address] [place] [address] SENTHIL ZAVALA Attending Provider Unknown Allergies, Adverse Reactions, Alerts No allergy information available. Medications No medication information available. Problem List No problem information available. Procedures No known history of procedures. Relevant Diagnostic Tests and/or Laboratory Data Laboratory Results Test Date/Time Result Interp. Ref. Range Result Co mment Arterial Blood pH March 31, 2017 8:24am 7.38 7.3 5-7.45 Arterial Blood Partial Pressure CO2 March 31, 2017 8:24am 60 mmHg High 35.0-45.0 Arterial Blood Partial Pressure O2 March 31, 2017 8:24am 59 mmHg Low 80.0-100 Arterial Blood Oxygen Saturation March 31, 2017 8:24am 86.6 % Arterial Blood HCO3 March 31, 2017 8:24am 35 mmol/L High 2 2.0-28.0 Blood Gas Patient Temperature March 31, 2017 8:24am 37.0 C Blood Gas Puncture Site March 31, 2017 8:24am Lr Maksim Test March 31, 2017 8:24am Yes Room Air March 31, 2017 8:24am Yes Chief Complaint and Reason for Visit Encounter Admit Date Chief Complaint Reason for V isit Discharged Recurring April 25, 2017 2:30pm COPD Hospital Discharge Instructions No known hospital discharge instructions. Encounters Encounter Facility Location Admit/Visit Date Discharge/Departure Date Attending Provider Registered Recurring [facility] September 10, 2017 1:30pm SENTHIL ZAVALA Discharged Recurring [facility] April 25, 2017 2:30pm September 11, 2017 10:43am SENTHIL ZAVALA Registered Referred [facility] March 31, 2017 7:44am SENTHIL ZAVALA Functional Status No known functional status. Immunizations No known immunizations. Payers Payer Name Policy Type Covered Republican Covered Republican Id Relationship Subscriber Subscriber Id BLUE CROSS OUT OF STATE PLAN Commerical OLY TAMAYO [id number] Self / Same As Patient OLY TAMAYO [id number] [employer] [place] [employer] [employer] OLY TAMAYO [id number] Self / Same As Patient OLY TAMAYO [id number] SELF PAY Personal Payment (Anders - No Insurance) Plan of Care No Known Plan of Care Information Social History Query Response Start Date Stop Date Smoking Status Unknown if ever smoked Vital Signs No known vital signs results.
--- OUTSIDE RECORDS SUMMARY | 2024-01-12 17:47 | XMS_ITS | Continuity of Care Document ---
Author Name [facility] Address [address] [place] [id number] Organization [facility] Address [address] [place] [address] Support Name Relationship Address Phone 0 Attending Provider Unknown Unavailab le Allergies, Adverse Reactions, Alerts No known allergies. Medications Active Medications Medication Dose Units Route Sig Qty Days Start Date Status Instructions Benzonatate [Tessalon Perles] 100 MG ORAL 3 Times A Day PRN For Cough December 22, 2019 Active Codeine-Guaifen esin [Virtussin Ac] 10 ML ORAL Q4H PRN For Cough December 22, 2019 Active Tiotropium [place] [Spiriva With Handihaler] 18 MCG INHALATION Daily December 22, 2019 Active Roflumilast [Daliresp] 500 MCG ORAL Daily December 22, 2019 Active Apixaban [Eliquis] 5 MG ORAL Twice A Day December 22, 2019 Active Azelastine 2 SPRAY NASAL Daily PRN For Allergy Symptoms December 22, 2019 Active Albuterol Sulfate [Proair Hfa] 2 PUFF INHALATION Q4H PRN For Shortness Of Breath December 22, 2019 Active Budesonide-Form oterol [Symbicort] 2 PUFF INHALATION Twice A Day 2019 Active Omeprazole 20 MG ORAL Daily 2019 Active Albuterol Sulfate [Proair Hfa] 2 PUFF INHALATION Q4H PRN For Shortness Of Breath December 22, 2019 Active Vitamin E 1000 UNIT ORAL Daily 2019 Active Acetaminophen [Tylenol] 650 MG ORAL Q6H PRN For Pain, Mild (Scale Score 1-3) December 22, 2019 Active Vitamin B Complex 1 TAB ORAL Daily December 22, 2019 Active Multivitamin-Ir on-Folic Acid [Centrum] 1 TAB ORAL Daily December 22, 2019 Active Discontinued Medications Medication Dose Units Route Sig Qty Days Start Date Discontinued Date Status Instructions Prednisone 0 Route .COMP SANDER December 22, 2019 December 30, 2019 Disconti nued Taper as directed over ten days, then discontinue Cefpodoxime 200 MG ORAL Twice A Day December 22, 2019 December 30, 2019 Disconti nued for 7 days Diltiazem Hcl [Cardizem Cd] 240 MG ORAL Daily December 22, 2019 December 30, 2019 Disconti nued Metoprolol Succinate [Toprol Xl] 100 MG ORAL Daily December 22, 2019 December 30, 2019 Disconti nued Hydrochlorot hiazide 25 MG ORAL Daily December 22, 2019 December 30, 2019 Disconti nued Oxycodone [Roxicodone] 5 MG ORAL Q4H PRN For Pain, Sever e (Scal e Score 7-10) December 22, 2019 December 30, 2019 Disconti nued Furosemide 40 MG INTRAVE N 0800, 1600 240 December 30, 2019 January 29, 2020 Disconti nued Ipratropium- Albuterol 1 AMP Via Nebuliz er Q4H AROUN D THE CLOCK (RESP ) December 30, 2019 January 29, 2020 Disconti nued Amiodarone 400 MG ORAL Q8H 36 6 2019January 05, 2020 Disconti nued Amiodarone 200 MG ORAL Daily 30 2019January 29, 2020 Disconti nued to be started AFTER 400mg load completes Amlodipine 5 MG ORAL Daily 30 2019January 29, 2020 Disconti nued Acetazolamid e Sodium 250 MG INTRAVE N Daily 7 7 December 30, 2019 January 06, 2020 Disconti nued Docusate Sodium 100 MG ORAL Twice A Day 60 December 30, 2019 January 29, 2020 Disconti nued Budesonide 0.5 MG Via Nebuliz er TWICE A DAY (RESP ) 120 December 30, 2019 January 29, 2020 Disconti nued Diltiazem Hcl 90 MG ORAL Q6H 120 December 30, 2019 January 29, 2020 Disconti nued Chlorhexidin e Gluconate 15 ML MOUTH TOPICAL 3 Times A Day 30 December 30, 2019 January 29, 2020 Disconti nued Sennosides [Senna Lax] 2 EACH ORAL At Bedti me 60 December 30, 2019 January 29, 2020 Disconti nued Prednisone 50 MG ORAL WITH BREAK FAST 10 2 December 30, 2019 January 01, 2020 Disconti nued Please taper with 5 days of 25mg prednisone followed by return to hoem 10mg daily prednisone Lorazepam 0.5 MG ORAL Q12H PRN For Anxie ty 60 30 December 30, 2019 January 29, 2020 Disconti nued Metoprolol Tartrate 50 MG ORAL Q6H 120 30 December 30, 2019 January 29, 2020 Disconti nued Insulin Lispro [Humalog U-100 Insulin] 0 UNIT SUBCUTA NEOUS With Meals and at Bedti me 30 December 30, 2019 January 29, 2020 Disconti nued Sodium Chloride [Deep Sea Nasal] 2 SPRAY NASAL Q4H PRN For Dry Nasal Passa ges 10 30 December 30, 2019 January 29, 2020 Disconti nued Problem List Active Problems Medical Problem Onset Date Status COPD, group D, by GOLD 2017 classification Active Obstructive sleep apnea Active Chronic respiratory failure with hypercapnia Active Chronic respiratory failure with hypoxia Active Dyspnea on exertion Active Chronic respiratory failure Acti ve Atrial flutter Active Pulmonary hypertension Active Obstructive sleep apnea syndrome, severe Active H/O cardiac radiofrequency ablation Active Lung nodule Active Body mass index (BMI) of 45.0 to 49.9 in adult Active Morbid obesity with body mass index (BMI) of 45. 0 to 49.9 in adult Active Acute exacerbation of chronic obstructive pulmon chu disease Active Procedures Procedure Date Status December 22, 2019 active December 22, 2019 active Relevant Diagnostic Tests and/or Laboratory Data Laboratory Results Test Date/Time Result Interp. Ref. Range Result Comment White Blood Count December 30, 2019 6:25am 15.3 x10^3/uL High 3.8-11.3 Red Blood Count December 30, 2019 6:25am 4.94 x10^6/uL 4.7-6.1 Hemoglobin December 30, 2019 6:25am 14.2 g/dL 13.0-17.0 Hematocrit December 30, 2019 6:25am 44.6 % 38.0-49.0 Mean Corpuscular Volume December 30, 2019 6:25am 90.3 fL 80-100 Mean Corpuscular Hemoglobin December 30, 2019 6:25am 28.7 pg 26.7-33.0 Mean Corpuscular Hemoglobin Concent December 30, 2019 6:25am 31.8 g/dL 31.6-35.6 RDW Coefficient of Variation December 30, 2019 6:25am 16.1 % High 11.5-14.5 Platelet Count December 30, 2019 6:25am 151 x10^3/uL 150-450 Mean Platelet Volume December 30, 2019 6:25am 11.3 fL 7.4-13.5 Neutrophils (%) (Auto) December 30, 2019 6:25am 84.7 % High 38.0-84.0 Lymphocytes (%) (Auto) December 30, 2019 6:25am 7.8 % Low 20.0-40.0 Monocytes (%) (Auto) December 30, 2019 6:25am 6.5 % 3.0-13.0 Eosinophils (%) (Auto) December 30, 2019 6:25am 0.8 % 0.0-6.0 Basophils (%) (Auto) December 30, 2019 6:25am 0.2 % 0-2.0 Neutrophils % (Manual) December 25, 2019 8:34am 91.0 % High 38-84 Lymphocytes % (Manual) December 25, 2019 8:34am 2.0 % Low 20-40 Monocytes % (Manual) December 25, 2019 8:34am 4.0 % 3-12 Band Neutrophils % (Manual) December 25, 2019 8:34am 2.0 % 0-4 Metamyelocytes % (manual) December 25, 2019 8:34am 1.0 High 0-0 Red Blood Cell Morphology December 25, 2019 8:34am Normal Platelet Estimate December 25, 2019 8:34am Adequate Smear Scan December 26, 2019 6:28am Auto diff confirmed Prothrombin Time December 22, 2019 3:46pm 11.8 Sec 9.4-12.5 Prothromb Time International Ratio December 22, 2019 3:46pm 1.0 0.8-1.1 INTERPRETIVE NOT E: No anticoagulant: 0.8 to 1.1 Standard dose anticoagulant: 2.0 to 3.0 High dose anticoagulant: 2.5 to 3.5 Critical INR: > 5.0 Urine Color December 26, 2019 6:31pm Yellow Urine Appearance December 26, 2019 6:31pm Clear Urine Specific [place] December 26, 2019 6:31pm 1.033 1.001-1.0 35 Urine Leukocyte Esterase December 26, 2019 6:31pm Negative Urine pH December 26, 2019 6:31pm 5.0 pH 4.0-8.0 Urine Protein December 26, 2019 6:31pm 100 mg/dL Urine Glucose December 26, 2019 6:31pm Negative mg/dL Urine Ketones December 26, 2019 6:31pm Negative mg/dL Urine Bilirubin December 26, 2019 6:31pm Negative Urine Nitrite December 26, 2019 6:31pm Negative Urine Occult Blood December 26, 2019 6:31pm Negative Urine WBC December 26, 2019 6:31pm 0-2 Urine RBC December 26, 2019 6:31pm 0-2 /hpf Urine Squamous Epithelial Cells December 26, 2019 6:31pm Rare Urine Hyaline Casts December 26, 2019 6:31pm Rare Urine Mucus December 26, 2019 6:31pm Few Urine Bacteria December 26, 2019 6:31pm Negative Sodium Level December 30, 2019 5:15pm 136 MMOL/L 136-145 Plasma Sodium December 22, 2019 2:14pm 136 MMOL/L 136-145 Potassium Level December 30, 2019 5:15pm 3.9 MMOL/L 3.5-5.1 Plasma Potassium December 22, 2019 2:14pm 4.0 MMOL/L 3.5-5.1 Chloride Level December 30, 2019 5:15pm 89 MMOL/L Low 98-107 Plasma Chloride December 22, 2019 2:14pm 89 MMOL/L Low 98-107 Carbon Dioxide Level December 30, 2019 5:15pm > 40 mmol/L High 20-31 CRITICAL VALUE REPORTED AND READ BACK [id number] Plasma Carbon Dioxide December 22, 2019 2:14pm > 40 MMOL/L High 21-32 CRITICAL VALUE REPORTED AND READ BACK [id number] Anion Gap December 30, 2019 5:15pm TNP Test not perform ed Unable to calculate. Calcium Level December 30, 2019 5:15pm 8.6 mg/dL Low 8.7-10.4 Plasma Calcium December 22, 2019 2:14pm 8.8 MG/DL 8.7-10.4 Glucose Level December 30, 2019 5:15pm 198 MG/DL High 74-106 Plasma Glucose Level December 22, 2019 2:14pm 114 MG/DL High 74-106 Blood Urea Nitrogen December 30, 2019 5:15pm 30 mg/gL High 9-23 Plasma Blood Urea Nitrogen December 22, 2019 2:14pm 16 9-23 Note: New refere nce range and method effective 07/13/2019. Creatinine December 30, 2019 5:15pm 0.8 mg/dL 0.6-1.1 Plasma Creatinine December 22, 2019 2:14pm 0.6 MG/DL 0.6-1.1 Note: New refere nce range and method effective 07/13/2019. Estimated GFR (Non- December 30, 2019 5:15pm 99.3 60- Estimated GFR un its = mL/min/1.73 m??? IDMS traceable MDRD study equation in use effective 02/17/18 Estimated GFR () December 30, 2019 5:15pm 120.3 60- Estimated GFR un its = mL/min/1.73 m??? IDMS traceable MDRD study equation in use effective 02/17/18 Total Protein December 25, 2019 8:34am 5.5 g/dL Low 5.7-8.2 Albumin December 25, 2019 8:34am 3.8 g/dL 3.2-4.8 Direct Bilirubin December 25, 2019 8:34am 0.3 mg/dL 0.0-0.3 Delta: 0.1 on 11/30/19-1633 Total Bilirubin December 25, 2019 8:34am 0.9 mg/dL 0-1.2 Delta: 0.4 on 11/30/193 Alkaline Phosphatase December 25, 2019 8:34am 52 U/L 46-116 Aspartate Amino Transf (AST/SGOT) December 25, 2019 8:34am 34 U/L 13-40 Alanine Aminotransferase (ALT/SGPT) December 25, 2019 8:34am 100 U/L High 7-40 Sulfasalazine ma y interfere with this assay, specimens should be drawn prior to dose. Phosphorus Level December 30, 2019 5:15pm 2.9 MG/DL 2.4-5.1 Note: New refere pre range and method effective 07/13/2019. B-Type Natriuretic Peptide December 23, 2019 7:38am 39.6 pg/mL High Fasting Glucose December 30, 2019 6:25am 91 MG/DL 74-99 POC Capillary Blood Glucose (Chem) December 30, 2019 5:04pm 191 MG/DL High 74-106 Hemoglobin A1c December 27, 2019 5:58am 6.2 % High 4.0-5.6 NORMAL IS BELOW 5.7 %, CONFIRMED WITH REPEAT TESTING PREDIABETES IS 5.7 - 6.4 %, CONFIRMED WITH REPEAT TESTING DIABETES IS 6.5 % OR ABOVE, CONFIRMED WITH REPEAT TESTING BASED ON 2013 ADA GUIDELINES Estimated Average Glucose December 27, 2019 5:58am 131 Magnesium Level December 30, 2019 5:15pm 2.1 MG/DL 1.6-2.6 Prolactin December 22, 2019 3:46pm 4.7 ng/mL 2.1-17.7 Please note new reference ranges and method effective 07/13/2019. Normally Menstruating Females Non- Females 2.8 - 29.2 ng/mL Females 9.7 - >200 ng/mL Postmenopausal Females 1.8 - 20.3 ng/mL Males 2.1 - 17.7 ng/mL Troponin I December 22, 2019 8:08pm 0.02 ng/mL 0.00-0.45 Procalcitonin December 27, 2019 5:08am 0.04 ng/ml 0-0.05 Result Interpretations: PCT =<0.5ng/mL: Systemic infection not likely PCT >0.5 and =<2.0 ng/mL: Moderate risk for progression to systemic infection PCT >2.0 ng/mL: High risk for progression to systemic infection PCT >=10 ng/mL High likelihood of severe sepsis or septic shock. Rheumatoid Factor November 30, 2019 4:33pm Negative Anti-Nuclear Antibody Screen November 30, 2019 4:33pm Negative Venous Blood pH December 30, 2019 6:25am 7.44 High 7.32-7.43 Venous Blood Partial Pressure CO2 December 30, 2019 6:25am 66 mmHg High 41-51 Venous Blood Partial Pressure O2 December 30, 2019 6:25am 55 mmHg High 30-40 Venous Blood Oxygen Saturation December 30, 2019 6:25am 90.1 % High 60.0-80.0 0 VBG O2 saturation result is dependent upon location the specimen is drawn from. VBG O2 saturation drawn from a PA catheter is the equivalent of a SvO2 (mixed venous oxygenation saturation) VBG O2 saturation drawn from a central line is the equivalent of a ScvO2 (central venous oxygenation saturation) Venous Blood HCO3 December 30, 2019 6:25am 44 mmol/L High 22-29 FiO2 December 28, 2019 9:54am 60 Blood Gas Liter Flow December 30, 2019 6:25am 10 L/M 0-20 Blood Gas IPAP December 28, 2019 9:54am 20 cmH2O Blood Gas EPAP December 28, 2019 9:54am 5 cmH2O Blood Gas Respiration Rate December 28, 2019 9:54am 25 Blood Gas Comments December 30, 2019 6:25am Hfnc Blood Gas Patient Temperature December 30, 2019 6:25am 36.6 C Blood Gas Puncture Site December 28, 2019 9:54am Rta Proteinase 3 (PR3) November 30, 2019 4:33pm <1.0 AI Value Interpreta tion <1.0 AI: No Antibody Detected >or=1.0 AI: Antibody Detected Autoantibodies to proteinase-3 (NJ-3) are accepted as characteristic for granulomatosis with polyangiitis (GPA, Gera's), and are detectabale in 95% of the histologically proven cases. The cytoplasmic IFA pattern, (c-ANCA), is based largely on autoantibody to NJ-3 which serves as the primary antigen. These autoantibodies are present in active disease. THIS TEST WAS PERFORMED AT: [facility] [address] [id number] Jose Cooper M.D., Ph.D.,Director of Laboratories Myeloperoxidase Antibody November 30, 2019 4:33pm <1.0 AI Value Interpreta tion <1.0 AI: No Antibody Detected >or=1.0 AI: Antibody Detected Autoantibodies to myeloperoxidase (MPO) are commonly associated with the following small-vessel vasculitides: microscopic polyangiitis, polyarteritis nodosa, Churg-Karey syndrome, necrotizing and crescentic glomerulonephritis and occasionally granulomatosis with polyangiitis (GPA, Gera's). The perinuclear IFA pattern, (p-ANCA) is based largely on autoantibody to myeloperoxidase which serves as the primary antigen. These autoantibodies are present in active disease. Advance Directives Advance Directive Response Recorded Date/ Time Do you have a Health Care Proxy Declined December 29, 2019 11:33pm MOLST Form Reviewed/Completed With Patient No December 22, 2019 7:57pm Chief Complaint and Reason for Visit Encounter Admit Date Chief Complaint Reason for V isit Registered Physician/Provide r Office Visit May 18, 2020 12:00am Appointment Hospital Discharge Instructions No known hospital discharge instructions. Hospital Discharge Medications Medication Dose Units Route Sig Qty Days Order Date Status Instructions Prednisone 0 Route .COMPLEX Dylan [email or web address] Discontinue d Taper as directed over ten days, then discontinue Cefpodoxime 200 MG ORAL Twice A Day December 22, 2019 Discontinue d for 7 days Diltiazem Hcl 240 MG ORAL Daily Jaskaran hightower 2019 Discontinue d Metoprolol Succinate 100 MG ORAL Daily December 22, 2019 Discontinue d Benzonatate 100 MG ORAL 3 Times A Day PRN For Cough December 22, 2019 Active Codeine-Guaifen esin 10 ML ORAL Q4H PRN For Cough December 22, 2019 Active Hydrochlorothia zide 25 MG ORAL Daily December 22, 2019 Discontinue d Oxycodone 5 MG ORAL Q4H PRN For Pain, Severe (Scale Score 7-10) December 22, 2019 Discontinue d Tiotropium [place] 18 MCG INHALATION Daily December 22, 2019 Active Roflumilast 500 MCG ORAL Daily 2019 Active Apixaban 5 MG ORAL Twice A Day December 22, 2019 Active Azelastine 2 SPRAY NASAL Daily PRN For Allergy Symptoms December 22, 2019 Active Albuterol Sulfate 2 PUFF INHALATION Q4H PRN For Shortnes s Of Breath December 22, 2019 Active Budesonide-Form oterol 2 PUFF INHALATION Twice A Day December 22, 2019 Active Omeprazole 20 MG ORAL Daily 2019 Active Albuterol Sulfate 2 PUFF INHALATION Q4H PRN For Shortnes s Of Breath December 22, 2019 Active Vitamin E 1000 UNIT ORAL Daily 2019 Active Acetaminophen 650 MG ORAL Q6H PRN For Pain, Mild (Scale Score 1-3) December 22, 2019 Active Vitamin B Complex 1 TAB ORAL Daily December 22, 2019 Active Multivitamin-Ir on-Folic Acid 1 TAB ORAL Daily 2019 Active Furosemide 40 MG INTRAVEN 0800,160 0 240 December 30, 2019 Discontinue d Ipratropium-Alb uterol 1 AMP Via Nebulizer Q4H AROUND THE CLOCK (RESP) December 30, 2019 Discontinue d Amiodarone 400 MG ORAL Q8H 36 6 2019 Discontinue d Amiodarone 200 MG ORAL Daily 2019 Discontinue d to be started AFTER 400mg load completes Amlodipine 5 MG ORAL Daily 30 2019 Discontinue d Acetazolamide Sodium 250 MG INTRAVEN Daily 7 7 December 30, 2019 Discontinue d Docusate Sodium 100 MG ORAL Twice A Day 60 December 30, 2019 Discontinue d Budesonide 0.5 MG Via Nebulizer TWICE A DAY (RESP) 120 December 30, 2019 Discontinue d Diltiazem Hcl 90 MG ORAL Q6H 120 Ja nuary 2019 Discontinue d Chlorhexidine Gluconate 15 ML MOUTH TOPICAL 3 Times A Day 30 December 30, 2019 Discontinue d Sennosides 2 EACH ORAL At Bedtime 60 December 30, 2019 Discontinue d Prednisone 50 MG ORAL WITH BREAKFAS T 10 December 30, 2019 Discontinue d Please taper with 5 days of 25mg prednisone followed by return to hoem 10mg daily prednisone Lorazepam 0.5 MG ORAL Q12H PRN For Anxiety 60 December 30, 2019 Discontinue d Metoprolol Tartrate 50 MG ORAL Q6H 120 December 30, 2019 Discontinue d Insulin Lispro 0 UNIT SUBCUTANEO US With Meals and at Bedtime 30 December 30, 2019 Discontinue d Sodium Chloride 2 SPRAY NASAL Q4H PRN For Dry Nasal Passages 10 December 30, 2019 Discontinue d Encounters Encounter Facility Location Admit/Visit Date Discharge/Departure Date Attending Provider Registered Physician/Pro vider Office Visit [facility] May 18, 2020 12:00am 0, Registered Referred [facility] Jason Valentino. Internal Medicine May 11, 2020 8:00am Johnie Frazier Registered Physician/Pro vider Office Visit [facility] May 11, 2020 12:00am 0, Registered Physician/Pro vider Office Visit [facility] May 10, 2020 12:00am 0, Registered Physician/Pro vider Office Visit [facility] May 08, 2020 12:00am 0, Registered Physician/Pro vider Office Visit [facility] March 31, 2020 12:00am 0, Registered Referred [facility] Jason Valentino. Internal Medicine March 30, 2020 2:00pm Johnie Frazier Registered Physician/Pro vider Office Visit [facility] March 30, 2020 12:00am 0, Registered Physician/Pro vider Office Visit [facility] March 23, 2020 12:00am 0, Registered Physician/Pro vider Office Visit [facility] March 16, 2020 12:00am 0, Registered Physician/Pro vider Office Visit [facility] March 14, 2020 12:00am 0, [facility] [address] Internal Medicine February 29, 2020 2:30pm Johnie Frazier Registered Physician/Pro vider Office Visit [facility] February 29, 2020 12:00am 0, Registered Physician/Pro vider Office Visit [facility] February 17, 2020 12:00am [id number], Registered Physician/Pro vider Office Visit [facility] February 03, 2020 12:00am 0, Registered Physician/Pro vider Office Visit [facility] February 01, 2020 12:00am 0, Registered Referred [facility] [address] Internal Medicine January 27, 2020 10:30am Johnie Frazier Registered Physician/Pro vider Office Visit [facility] January 27, 2020 12:00am 0, Registered Referred [facility] January 25, 2020 4:35pm Johnie Frazier Registered Physician/Pro vider Office Visit [facility] January 25, 2020 12:00am 0, Registered Physician/Pro vider Office Visit [facility] January 21, 2020 12:00am 0, Registered Physician/Pro vider Office Visit [facility] January 20, 2020 12:00am 0, Registered Physician/Pro vider Office Visit [facility] January 17, 2020 12:00am 0, Registered Referred [facility] [address] Internal Medicine January 13, 2020 11:30am Johnie Frazier Registered Physician/Pro vider Office Visit [facility] January 13, 2020 12:00am 0, Registered Physician/Pro vider Office Visit [facility] January 12, 2020 12:00am 0, Registered Physician/Pro vider Office Visit [facility] January 11, 2020 12:00am 0, Registered Physician/Pro vider Office Visit [facility] January 10, 2020 12:00am 0, Registered Physician/Pro vider Office Visit [facility] December 29, 2019 12:00am 0, Registered Physician/Pro vider Office Visit [facility] December 23, 2019 12:00am 0, [facility] December 22, 2019 4:39pm December 30, 2019 9:29pm Benny Raymundo Registered Physician/Pro vider Office Visit [facility] December 22, 2019 12:00am 0, Registered Referred [facility] [address] Internal Medicine December 21, 2019 11:15am Johnie Frazier Registered Physician/Pro vider Office Visit [facility] December 21, 2019 12:00am 0, Registered Physician/Pro vider Office Visit [facility] December 20, 2019 12:00am 0, Registered Physician/Pro vider Office Visit [facility] December 19, 2019 12:00am 0, Registered Physician/Pro vider Office Visit [facility] December 16, 2019 12:00am 0, Registered Physician/Pro vider Office Visit [facility] December 15, 2019 12:00am 0, Registered Physician/Pro vider Office Visit [facility] December 14, 2019 12:00am 0, Registered Physician/Pro vider Office Visit [facility] December 13, 2019 12:00am 0, Registered Physician/Pro vider Office Visit [facility] December 12, 2019 12:00am 0, Registered Physician/Pro vider Office Visit [facility] December 08, 2019 12:00am 0, Registered Physician/Pro vider Office Visit [facility] December 07, 2019 12:00am 0, Registered [facility] November 30, 2019 4:10pm Johnie Frazier [facility] November 30, 2019 3:00pm Johnie Frazier Registered Physician/Pro vider Office Visit [facility] November 30, 2019 12:00am 0, Registered Physician/Pro vider Office Visit [facility] November 29, 2019 12:00am 0, Registered Physician/Pro vider Office Visit [facility] November 20, 2019 12:00am 0, Registered Physician/Pro vider Office Visit [facility] November 19, 2019 12:00am 0, Registered Physician/Pro vider Office Visit [facility] November 17, 2019 12:00am 0, Registered Physician/Pro vider Office Visit [facility] November 16, 2019 12:00am 0, Registered Physician/Pro vider Office Visit [facility] November 15, 2019 12:00am 0, Functional Status Query Response Date Recorded Comment Comprehension Ability Understands Concepts December 30, 2019 10:23am Query Response Date Recorded Comment Physical Dependency Level Independent December 30 0 12:09pm Immunizations No known immunizations. Plan of Care No Known Plan of Care Information Social History Query Response Date Recorded Comment Smoking Status Former smoker December 30, 2019 4:14pm Query Response Start Date Stop Date Smoking Status Former smoker Vital Signs Vital Reading Result Reference Range Collection Date/Time Height 5 ft 11 in December 29 0 6:00am Weight n/a Temperature 97.6 F 96.5 F-101.5 F December 30 020 7:22pm Pulse 84 BPM 50-110 May 11, 2020 7 :57am Respiration 18 RPM 12-20 May 11, 2020 7 :57am Pulse Oximetry 95 % 95-100 May 11, 2020 7:57am Blood Pressure Systolic 128 100-180 May 11, 2020 7:57am Blood Pressure Diastolic 72 70-85 Ross 2019 7:57am Body Mass Index 42.4 May 11 0 7:57am
--- OUTSIDE RECORDS SUMMARY | 2024-01-12 17:47 | XMS_ITS | Continuity of Care Document ---
Author Name [facility] Address [address] [place] [id number] Organization [facility] Address [address] [place] [id number] Support Name Relationship Address Phone Rachel Hidalgo Primary Care Provider [address] [place] [id number] [place] Emergency Provider [address] [place] [id number] DdLexie nuñez Admit Provider [address] [place] [id number] Jonah Prakash Attending Provider [address] [place] [id number] Tre Randhawa Other Provider [facility] [address] [place] [address] Jonathan Mi Other Provider [facility] [address] [place] [address] Rachel Hidalgo Primary Care Provider [address] [place] [id number] Mary Ellen Sandoval Emergency Provider [address] [place] [id number] Lexie Morris Admit Provider [address] [place] [id number] Jonah Prakash Other Provider [address] [place] [id number] Elvin Hansen Attending Provider [address] [place] [id number] Allergies, Adverse Reactions, Alerts No known allergies. Medications Active Medications Medication Dose Units Route Sig Qty Days Start Date Status Ins tructions Budesonide-Formo terol [Symbicort] 2 PUFF INHALATION Twice A Day 3 February 26, 2021 Active Roflumilast [Daliresp] 500 MCG ORAL Daily 90 August 06, 2021 Active Azelastine 2 SPRAY NASAL Twice A Day August 07, 2021 Active Albuterol Sulfate [Proair Hfa] 2 PUFF INHALATION Q4H PRN For Shortnes s Of Breath 3 December 17, 2021 Active Apixaban [Eliquis] 5 MG ORAL Twice A Day December 22, 2019 Active Omeprazole 20 MG ORAL Daily 2019 Active Vitamin E 1000 UNIT ORAL Daily 2019 Active Acetaminophen [Tylenol] 650 MG ORAL Q6H PRN For Pain, Mild (Scale Score 1-3) December 22, 2019 Active Vitamin B Complex 1 TAB ORAL Daily December 22, 2019 Active Multivitamin-Iro n-Folic Acid [Centrum] 1 TAB ORAL Daily December 22, 2019 Active Cholecalciferol (Vitamin D3) [Vitamin D3] 25 MCG ORAL Daily 2021 Active Multivitamin TAB Daily Jan Active Doxycycline Hyclate 100 MG ORAL Twice A Day 16 January 22, 2022 Active Holley-3 Fatty Acids [Fish Oil Concentrate] 1000 MG ORAL Daily 2019 Active Fluticasone Propionate 1 SPRAY NASAL Twice A Day January 08, 2021 Active Furosemide 40 MG ORAL Twice A Day January 08, 2021 Active Amiodarone 200 MG ORAL Daily 2020 Active Diltiazem Hcl [Cartia Xt] 240 MG ORAL Daily January 08, 2021 Active Metoprolol Succinate 100 MG ORAL Daily January 09, 2021 Active Tiotropium Greene [Spiriva Respimat] 2 PUFF INHALATION Every Morning 3 September 08, 2021 Active Methimazole 5 MG ORAL Daily 2021 Active Discontinued Medications Medication Dose Units Route Sig Qty Days Start Date Discontinued Date Status Instructions Albuterol Sulfate [Proair Hfa] 2 PUFF INHALAT ION Q4H PRN For Short ness Of Breat h 3 September 21, 2020 December 17, 2021 Disconti nued Budesonide-F ormoterol [Symbicort] 2 PUFF INHALAT ION Twice A Day 10.2 February 23, 2021 February 26, 2021 Disconti nued Rinse mouth after use Prednisone 0 Route .COMP SANDER December 22, [...] 22, 2019 December 30, 2019 Disconti nued Benzonatate [Tessalon Perles] 100 MG ORAL 3 Times A Day PRN For Cough December 22, 2019 January 08, 2021 Disconti nued Codeine-Guai fenesin [Virtussin Ac] 10 ML ORAL Q4H PRN For Cough December 22, 2019 January 08, 2021 Disconti nued Hydrochlorot hiazide 25 MG ORAL Daily December 22, 2019 December 30, 2019 Disconti nued Oxycodone [Roxicodone] 5 MG ORAL Q4H PRN For Pain, Sever e (Scal e Score 7-10) December 22, 2019 December 30, 2019 Disconti nued Tiotropium Greene [Spiriva With Handihaler] 18 MCG INHALAT ION Daily December 22, 2019 September 08, 2021 Disconti nued Roflumilast [Daliresp] 500 MCG ORAL Daily December 22, 2019 August 29, 2020 Disconti nued Azelastine 2 SPRAY NASAL Daily PRN For Aller gy Sympt oms December 22, 2019 August 07, 2021 Disconti nued Albuterol Sulfate [Proair Hfa] 2 PUFF INHALAT ION Q4H PRN For Short ness Of Breat h December 22, 2019 September 21, 2020 Disconti nued Budesonide-F ormoterol [Symbicort] 2 PUFF INHALAT ION Twice A Day December 22, 2019 February 23, 2021 Disconti nued Albuterol Sulfate [Proair Hfa] 2 PUFF INHALAT ION Q4H PRN For Short ness Of Breat h December 22, 2019 September 21, 2020 Disconti nued Furosemide 40 MG INTRAVE N 0800, 1600 240 30 December 30, 2019 January 29, 2020 Disconti nued Ipratropium- Albuterol 1 AMP Via Nebuliz er Q4H AROUN D THE CLOCK (RESP ) 30 December 30, 2019 January 29, 2020 [...] 50 MG ORAL WITH BREAK FAST 10 December 30, 2019 January 01, 2020 Disconti nued Please taper with 5 days of 25mg prednisone followed by return to ho 10mg daily prednisone Lorazepam 0.5 MG ORAL Q12H PRN For Anxie ty 60 December 30, 2019 January 29, 2020 [...] PRN For Dry Nasal Passa ges 10 December 30, 2019 January 29, 2020 Disconti nued Fluarix Quad [id number] (PF) (flu vacc [id number] 6mos up(PF)) 60 mcg (15 mcg x 4)/0.5 mL IM syringe 0.5 ML INTRAMU SC Once 0.5 Septemb er 2019August 29, 2020 Disconti nued Roflumilast [Daliresp] 500 MCG ORAL Daily 90 Septemb er 2019August 06, 2021 Disconti nued Metoprolol Succinate TAB ORAL Februar y 2020January 09, 2021 Disconti nued Prednisone 0 ORAL .COMP SANDER 20 8 May 16, 2021 May 24, 2021 Disconti nued 40mg po qAM x2days, 30 mg x2days,20 mg x2days,then 10mg x2 days, then off. Azithromycin 500 MG ORAL Daily 5 5 Ross e 2020May 21, 2021 Disconti nued Fluarix Quad (PF) (flu vacc [id number] 6mos up(PF)) 60 mcg (15 mcg x 4)/0.5 mL IM syringe 0.5 ML [facility]U SC [facility], 2021 Disconti nued pneumococcal 23-maría ps vaccine 25 mcg/0.5 mL injection syringe 0.5 ML INTRAMU SC Once 0.5 December 25, 2021 December 25, 2021 Disconti nued Problem List Active Problems Medical Problem Onset Date Status COPD, group D, by GOLD 2017 classification Active Chronic respiratory failure with hypercapnia Active Chronic respiratory failure with hypoxia Active Dyspnea on exertion Active Need for influenza vaccination A ctive Need for 23-polyvalent pneumococcal polysacchari de vaccine Active Cellulitis Active Pulmonary hypertension Active H/O cardiac radiofrequency ablation Active Lung nodule Active Superficial thrombophlebitis Act cristo Body mass index (BMI) of 45.0 to 49.9 in adult Active Morbid obesity with body mass index (BMI) of 45. 0 to 49.9 in adult Active Procedures Procedure Date Status Blood Culture January 20, 2022 active Relevant Diagnostic Tests and/or Laboratory Data Laboratory Results Test Date/Time Result Interp. Ref. Range Result Co mment White Blood Count January 21, 2022 7:40am 10.0 x10^3/uL 3.8-11.3 Red Blood Count January 21, 2022 7:40am 4.63 x10^6/uL Low 4.7-6.1 Hemoglobin January 21, 2022 7:40am 14.1 g/dL 13.0-17.0 Hematocrit January 21, 2022 7:40am 43.3 % 38.0-49.0 Mean Corpuscular Volume January 21, 2022 7:40am 93.5 fL 80-100 Mean Corpuscular Hemoglobin January 21, 2022 7:40am 30.5 pg 26.7-33.0 Mean Corpuscular Hemoglobin Concent January 21, 2022 7:40am 32.6 g/dL 31.6-35.6 RDW Coefficient of Variation January 21, 2022 7:40am 15.1 % High 11.5-14.5 Platelet Count January 21, 2022 7:40am 158 x10^3/uL 150-450 Mean Platelet Volume January 21, 2022 7:40am 11.1 fL 7.4-13.5 Neutrophils (%) (Auto) January 20, 2022 2:30pm 72.3 % 38.0-84.0 Lymphocytes (%) (Auto) January 20, 2022 2:30pm 17.1 % Low 20.0-40.0 Monocytes (%) (Auto) January 20, 2022 2:30pm 8.8 % 3.0-13.0 Eosinophils (%) (Auto) January 20, 2022 2:30pm 1.2 % 0.0-6.0 Basophils (%) (Auto) January 20, 2022 2:30pm 0.6 % 0-2.0 Sodium Level January 21, 2022 7:40am 140 MMOL/L 136-145 Plasma Sodium January 20, 2022 4:08pm 140 MMOL/L 136-145 Potassium Level January 21, 2022 7:40am 4.2 MMOL/L 3.5-5.1 Plasma Potassium January 20, 2022 4:08pm 3.7 MMOL/L 3.5-5.1 Chloride Level January 21, 2022 7:40am 100 MMOL/L 98-107 Plasma Chloride January 20, 2022 4:08pm 99 MMOL/L 98-107 Carbon Dioxide Level January 21, 2022 7:40am 31 mmol/L 20-31 Plasma Carbon Dioxide January 20, 2022 4:08pm 34 MMOL/L High 21-32 Anion Gap January 21, 2022 7:40am 9 4-14 Calcium Level January 21, 2022 7:40am 9.1 mg/dL 8.7-10.4 Plasma Calcium January 20, 2022 4:08pm 8.8 MG/DL 8.7-10.4 Glucose Level January 21, 2022 7:40am 91 MG/DL 74-106 Plasma Glucose Level January 20, 2022 4:08pm 92 MG/DL 74-106 Blood Urea Nitrogen January 21, 2022 7:40am 16 mg/dL 9-23 Plasma Blood Urea Nitrogen January 20, 2022 4:08pm 15 9-23 Note: New reference range and method effective 07/13/2019. Creatinine January 21, 2022 7:40am 0.75 mg/dL 0.70-1.30 Plasma Creatinine January 20, 2022 4:08pm 0.74 mg/dL 0.70-1.30 Estimated GFR (CKD-EPI) January 21, 2022 7:40am 103 60- NOTE: New 2020 CKD-EPI equation in use effective 11/13/21 Race specific equations for eGFR are no longer recommended by the [employer]. POC Capillary Blood Glucose (Chem) January 22, 2022 7:38am 90 MG/DL 74-106 RN protocl to follow Lactic Acid Level January 20, 2022 3:04pm 0.4 MMOL/L 0.4-2.0 Vancomycin Level Trough January 21, 2022 3:14pm 23.1 ug/mL High 15-20 Procalcitonin January 20, 2022 4:08pm 0.25 ng/ml High 0-0.05 Result Interpretations: PCT =<0.5ng/mL: Systemic infection not likely PCT >0.5 and =<2.0 ng/mL: Moderate risk for progression to systemic infection PCT >2.0 ng/mL: High risk for progression to systemic infection PCT >=10 ng/mL High likelihood of severe sepsis or septic shock. Coronavirus 2019 (KIARA) January 20, 2022 4:56pm Negative A Negative Resul t means that the SARS-CoV-2 RNA was not present in the specimen above the limit of detection. However, a negative result does not rule out COVID-19 infection and should not be used as the sole basis for treatment or patient management decisions. A false negative should be considered if the patient's recent exposures or clinical presentation indicate infection with COVID-19 is likely. If COVID-19 infection is still suspected, re-testing should be considered in consultation with public health authorities. False negative results may occur if a specimen is improperly collected, transported or handled, if inadequate levels of virus are present in the specimen, or if amplification inhibitors are present in the specimen. Methodology: Nucleic Acid Amplification (KIARA) Rapid Molecular test. Performed on [facility] This test has been authorized by the FDA under an Emergency Use Authorization (EAU) for use by authorized laboratories. Advance Directives Advance Directive Response Recorded Date/ Time Do you have a Health Care Proxy Declined January 20, 2022 7:51pm Health Care Proxy Name luis manuel hairtson [id number] January 20, 2022 7:51pm MOLST Form Reviewed/Complete d With Patient No January 20, 2022 7:51pm Chief Complaint and Reason for Visit Encounter Admit Date Chief Complaint Reason for V isit Registered Inpatient January 20, 2022 4:54pm CELLULITIS, SUPERFICIAL THROMBOPLEBITIS Cellulitis Superficial thrombophlebitis Hospital Discharge Instructions Query Response Comment Date/Time Discharge Instructions Given To Patient 01/22/2022 16:11 Hospital Discharge Medications Medication Dose Units Route Sig Qty Days Order Date Status Instructions Albuterol Sulfate 2 PUFF INHALATION Q4H PRN For Shortnes s Of Breath 3 September 21, 2020 Discontinu ed Budesonide-Form oterol 2 PUFF INHALATION Twice A Day 10.2 February 23, 2021 Discontinu ed Rinse mouth after use Budesonide-Form oterol 2 PUFF INHALATION Twice A Day 3 February 26, 2021 Active Roflumilast 500 MCG ORAL Daily 90 Sept emb2020 Active Azelastine 2 SPRAY NASAL Twice A Day 30 August 07, 2021 Active Albuterol Sulfate 2 PUFF INHALATION Q4H PRN For Shortnes s Of Breath 3 December 17, 2021 Active Prednisone 0 Route .COMPLEX Dylan sage 2019 Discontinu ed Taper as directed over ten days, then discontinue Cefpodoxime 200 MG ORAL Twice A Day December 22, 2019 Discontinu ed for 7 days Diltiazem Hcl 240 MG ORAL Daily Jaskaran hightower 2019 Discontinu ed Metoprolol Succinate 100 MG ORAL Daily December 22, 2019 Discontinu ed Benzonatate 100 MG ORAL 3 Times A Day PRN For Cough December 22, 2019 Discontinu ed Codeine-Guaifen esin 10 ML ORAL Q4H PRN For Cough December 22, 2019 Discontinu ed Hydrochlorothia zide 25 MG ORAL Daily December 22, 2019 Discontinu ed Oxycodone 5 MG ORAL Q4H PRN For Pain, Severe (Scale Score 7-10) December 22, 2019 Discontinu ed Tiotropium Greene 18 MCG INHALATION Daily December 22, 2019 Discontinu ed Roflumilast 500 MCG ORAL Daily 2019 Discontinu ed Apixaban 5 MG ORAL Twice A Day December 22, 2019 Active Azelastine 2 SPRAY NASAL Daily PRN For Allergy Symptoms December 22, 2019 Discontinu ed Albuterol Sulfate 2 PUFF INHALATION Q4H PRN For Shortnes s Of Breath December 22, 2019 Discontinu ed Budesonide-Form oterol 2 PUFF INHALATION Twice A Day December 22, 2019 Discontinu ed Omeprazole 20 MG ORAL Daily 2019 Active Albuterol Sulfate 2 PUFF INHALATION Q4H PRN For Shortnes s Of Breath December 22, 2019 Discontinu ed Vitamin E 1000 UNIT ORAL Daily 2019 Active Acetaminophen 650 MG ORAL Q6H PRN For Pain, Mild (Scale Score 1-3) December 22, 2019 Active Vitamin B Complex 1 TAB ORAL Daily December 22, 2019 Active Multivitamin-Ir on-Folic Acid 1 TAB ORAL Daily 2019 Active Furosemide 40 MG INTRAVEN 0800,160 0 240 December 30, 2019 Discontinu ed Ipratropium-Alb uterol 1 AMP Via Nebulizer Q4H AROUND THE CLOCK (RESP) December 30, 2019 Discontinu ed Amiodarone 400 MG ORAL Q8H 36 6 2019 Discontinu ed Amiodarone 200 MG ORAL Daily 30 2019 Discontinu ed to be started AFTER 400mg load completes Amlodipine 5 MG ORAL Daily 30 2019 Discontinu ed Acetazolamide Sodium 250 MG INTRAVEN Daily 7 7 December 30, 2019 Discontinu ed Docusate Sodium 100 MG ORAL Twice A Day 60 December 30, 2019 Discontinu ed Budesonide 0.5 MG Via Nebulizer TWICE A DAY (RESP) 120 December 30, 2019 Discontinu ed Diltiazem Hcl 90 MG ORAL Q6H 120 30 Jaskaran hightower 2019 Discontinu ed Chlorhexidine Gluconate 15 ML MOUTH TOPICAL 3 Times A Day December 30, 2019 Discontinu ed Sennosides 2 EACH ORAL At Bedtime 60 December 30, 2019 Discontinu ed Prednisone 50 MG ORAL WITH BREAKFAS T 10 2 December 30, 2019 Discontinu ed Please taper with 5 days of 25mg prednisone followed by return to hoem 10mg daily prednisone Lorazepam 0.5 MG ORAL Q12H PRN For Anxiety 60 December 30, 2019 Discontinu ed Metoprolol Tartrate 50 MG ORAL Q6H 120 December 30, 2019 Discontinu ed Insulin Lispro 0 UNIT SUBCUTANEO US With Meals and at Bedtime December 30, 2019 Discontinu ed Sodium Chloride 2 SPRAY NASAL Q4H PRN For Dry Nasal Passages 10 December 30, 2019 Discontinu ed Cholecalciferol (Vitamin D3) 25 MCG ORAL Daily y 2021 Active Multivitamin TAB Daily Jan ru2021 Active Doxycycline Hyclate 100 MG ORAL Twice A Day January 22, 2022 Active Fluarix Quad (PF) (flu vacc [id number] 6mos up(PF)) 60 mcg (15 mcg x 0.5 ML INTRAMUSC Once 0.5 August 29, 2020 Discontinu ed Holley-3 Fatty Acids 1000 MG ORAL Daily August 29, 2020 Active Roflumilast 500 MCG ORAL Daily 90 Aug emb2019 Discontinu ed Fluticasone Propionate 1 SPRAY NASAL Twice A Day January 08, 2021 Active Furosemide 40 MG ORAL Twice A Day January 08, 2021 Active Metoprolol Succinate TAB ORAL January 08, 2021 Discontinu ed Amiodarone 200 MG ORAL Daily chu 2020 Active Diltiazem Hcl 240 MG ORAL Daily Fe bruary 2020 Active Metoprolol Succinate 100 MG ORAL Daily January 09, 2021 Active Prednisone 0 ORAL .COMPLEX 20 8 May 16, 2021 Discontinu ed 40mg po qAM x2days, 30 mg x2days,20 mg x2days,then 10mg x2 days, then off. Azithromycin 500 MG ORAL Daily 5 5 May Discontinu ed Fluarix Quad (PF) (flu vacc [id number] 6mos up(PF)) 60 mcg (15 mcg x 0.5 ML INTRAMUSC Once 0.5 August 28, 2021 Discontinu ed Tiotropium Greene 2 PUFF INHALATION Every Morning 3 September 08, 2021 Active pneumococcal 23-maría ps vaccine 25 mcg/0.5 mL injection syringe 0.5 ML INTRAMUSC Once 0.5 December 25, 2021 Discontinu ed Methimazole 5 MG ORAL Daily Dylan [email or web address] Active Encounters Encounter Facility Location Admit/Visit Date Discharge/Departure Date Attending Provider Registered Inpatient [facility] January 20, 2022 4:54pm Elvin Hansen Departed Physician/Pro vider Office Visit [facility] December 25, 2021 3:14pm December 25, 2021 3:48pm Johnie Frazier Departed Physician/Pro vider Office Visit [facility] August 28, 2021 3:17pm August 28, 2021 3:42pm Johnie Frazier Departed Physician/Pro vider Office Visit [facility] May 22, 2021 2:47pm May 22, 2021 3:19pm Johnie Frazier Departed Physician/Pro vider Office Visit [facility] May 16, 2021 3:11pm May 16, 2021 11:59pm Johnie Frazier Departed Physician/Pro vider Office Visit [facility] February 27, 2021 7:57am February 27, 2021 1:38pm Johnie Frazier Encounter Diagnosis Onset Date Cellulitis Superficial thrombophlebitis Functional Status Query Response Date Recorded Comment Comprehension Ability Understands Concepts January 2:20pm Query Response Date Recorded Comment Physical Dependency Level Independent January 22 2:20pm Immunizations Immunization Name Date Given Type COVID-19, Moderna January 26, 2021 Historical COVID-19, Moderna October 06, 2021 Historical influenza, injectable, quadrivalent, pf Septembe r 2020 Administered Pneumococcal Polysacc. Vaccine, 23 valent Dectyronr y 2021 Administered Influenza vaccine, quadrivalent, adjuvanted Sept ember 2019 Administered tetanus and diphth toxoids, adsorbed, adult Dylan [email or web address] Historical Plan of Care Instructions Cellulitis Dc Social History Query Response Start Date Stop Date Smoking Status Former smoker Vital Signs Vital Reading Result Reference Range Collection Date/Time Height 5 ft 11 in January 20 7:51pm Weight 142.882 kg January 20 7:51pm Temperature 98.0 F 96.8 F-100.4 F January 22, 2022 8:00am Pulse 60 BPM 50-90 January 22 8:00am Respiration 15 RPM -January 22 8:00am Pulse Oximetry 93 % 95-100 January 22, 2022 8:00am Blood Pressure Systolic 131 100-180 Febr [facility] 2021 8:00am Blood Pressure Diastolic 81 70-85 Feb [email or web address] 2021 8:00am Body Mass Index 43.9 January 21, 2022 3:56am
--- OUTSIDE RECORDS SUMMARY | 2024-01-12 17:47 | XMS_ITS | Continuity of Care Document ---
Author Name [address] [address] Support Name Relationship Address Phone Rachel Hidalgo Primary Care Provider [address] [place] [address] DdLexie nuñez Admit Provider [address] [place] [address] Jonah Prakash Attending Provider [address] [place] [address] Tre Randhawa Other Provider [facility] [address] [place] [address] Jonathan Mi Other Provider [facility] [address] [place] [address] Waqas Gautam Emergency Provider [facility] [address] [address] Rachel Hidalgo Primary Care Provider [address] [place] [address] Mary Ellen Sandoval Emergency Provider [address] [place] [address] DdLexie nuñez Admit Provider [address] [place] [address] Jonah Prakash Other Provider [address] [place] [id number] Elvin Hansen Attending Provider [address] [place] [id number] Allergies, Adverse Reactions, Alerts No known allergies. Medications Active Medications Medication Dose Units Route Sig Qty Days Start Date Status Ins tructions Budesonide-Formo terol [Symbicort] 2 PUFF INHALATION Twice A Day 3 February 26, 2021 Active Roflumilast [Daliresp] 500 MCG ORAL Daily 90 August 06, 2021 Active Azelastine 2 SPRAY NASAL Twice A Day 30 August 07, 2021 Active Albuterol Sulfate [Proair [...] A Day 16 January 22, 2022 Active [place]-3 Fatty Acids [Fish Oil Concentrate] 1000 MG [...] ORAL Daily January 09, 2021 Active Tiotropium Almo [Spiriva Respimat] 2 PUFF INHALATION Every Morning [...] 2019 December 30, 2019 Disconti nued Tiotropium Almo [Spiriva With Handihaler] 18 MCG INHALAT ION [...] nued Amiodarone 200 MG ORAL Daily 30 30 2019January 29, 2020 Disconti nued to [...] of 25mg prednisone followed by return to [facility] 10mg daily prednisone Lorazepam 0.5 MG ORAL [...] January 29, 2020 Disconti nued Fluarix Quad 6833-1180 (PF) (flu vacc [id number] 6mos up(PF)) 60 mcg (15 mcg x 4)/0.5 mL IM syringe 0.5 ML INTRAMU SC Once 0.5 Septemb er 2019August 29, 2020 Disconti nued Roflumilast [Daliresp] 500 MCG ORAL Daily 90 Septemb er 2019August 06, 2021 Disconti nued Metoprolol Succinate TAB ORAL Februar y , 2020January 09, 2021 Disconti nued Prednisone 0 ORAL .COMP SANDER 20 8 May 16, 2021 May 24, 2021 Disconti nued 40mg po qAM x2days, 30 mg x2days,20 mg x2days,then 10mg x2 days, then off. Azithromycin 500 MG ORAL Daily 5 5 MayMay 21, 2021 Disconti nued Fluarix Quad (PF) (flu vacc [id number] 6mos up(PF)) 60 mcg (15 mcg x 4)/0.5 mL IM syringe 0.5 ML INTRAMU SC Once 0.5 [facility] [place] 28, 2021 Disconti nued pneumococcal 23-maría ps vaccine 25 mcg/0.5 mL injection syringe 0.5 ML INTRAMU SC Once 0.5 December 25, 2021 December 25, 2021 Disconti nued Problem List Active Problems Medical Problem Onset Date Status COPD, group D, by GOLD 2017 classification Active Chronic respiratory failure with hypercapnia Active Chronic respiratory failure with hypoxia Active Dyspnea on exertion Active Cellulitis Active Pulmonary hypertension Active H/O cardiac radiofrequency ablation Active Lung nodule Active Superficial thrombophlebitis Act cristo Body mass index (BMI) of 45.0 to 49.9 in adult Active Morbid obesity with body mass index (BMI) of 45. 0 to 49.9 in adult Active Inactive/Resolved Problems Medical Problem Onset Date Status Need for influenza vaccination I nactive Need for 23-polyvalent pneumococcal polysacchari de vaccine Inactive Procedures Procedure Date Status Blood Culture January 20, 2022 completed Relevant Diagnostic Tests and/or Laboratory Data Laboratory [...] Amplification (KIARA) Rapid Molecular test. Performed on [employer] This test has been authorized by the FDA under an Emergency Use Authorization (EAU) for use by authorized laboratories. Microbiology Results Procedure Source Result Collection Date/Time Resu lt Date/Time Blood Culture Blood, Venous/Peripheral Draw No growth January 20, 2022 2:30pm Advance Directives Advance Directive Response Recorded Date/ Time Do you have a Health Care Proxy Declined January 20, 2022 7:51pm Health Care Proxy Name luis manuel hairston [id number] January 20, 2022 7:51pm MOLST Form [...] Roflumilast 500 MCG ORAL Daily 90 Aug Active Azelastine 2 SPRAY NASAL Twice A Day August 07, 2021 Active Albuterol Sulfate 2 [...] 7-10) December 22, 2019 Discontinu ed Tiotropium Almo 18 MCG INHALATION Daily December 22, 2019 [...] Discontinu ed Amiodarone 200 MG ORAL Daily 2019 Discontinu ed to be started AFTER 400mg load completes Amlodipine 5 MG ORAL Daily 2019 Discontinu ed Acetazolamide Sodium 250 MG INTRAVEN Daily 7 7 December 30, 2019 Discontinu ed Docusate Sodium 100 MG ORAL Twice A Day 60 December 30, 2019 Discontinu ed Budesonide 0.5 MG Via Nebulizer TWICE A DAY (RESP) 120 December 30, 2019 Discontinu ed Diltiazem Hcl 90 MG ORAL Q6H 120 30 Ja nuary 2019 Discontinu ed Chlorhexidine Gluconate 15 ML MOUTH TOPICAL 3 Times A Day 30 December 30, 2019 Discontinu ed Sennosides 2 [...] and at Bedtime 30 December 30, 2019 Discontinu ed Sodium Chloride 2 SPRAY NASAL Q4H PRN For Dry Nasal Passages 10 December 30, 2019 Discontinu ed Cholecalciferol (Vitamin D3) 25 MCG ORAL Daily uar y 2021 Active Multivitamin TAB Daily Jan ruary 2021 Active Doxycycline Hyclate 100 MG ORAL Twice A Day January 22, 2022 Active Fluarix Quad (PF) (flu vacc [id number] 6mos up(PF)) 60 mcg (15 mcg x 0.5 ML INTRAMUSC Once 0.5 August 29, 2020 Discontinu ed [place]-3 Fatty Acids 1000 MG ORAL Daily August 29, 2020 Active Roflumilast 500 MCG ORAL Daily 90 Sept ember 2019 Discontinu ed Fluticasone Propionate 1 SPRAY NASAL Twice A Day January 08, 2021 Active Furosemide 40 MG ORAL Twice A Day January 08, 2021 Active Metoprolol Succinate TAB ORAL January 08, 2021 Discontinu ed Amiodarone 200 MG ORAL Daily u chu 2020 Active Diltiazem Hcl 240 MG ORAL Daily Fe bruary 2020 Active Metoprolol Succinate 100 MG ORAL Daily January 09, 2021 Active Prednisone 0 ORAL .COMPLEX 20 8 May 16, 2021 Discontinu ed 40mg po qAM x2days, 30 mg x2days,20 mg x2days,then 10mg x2 days, then off. Azithromycin 500 MG ORAL Daily 5 5 Ross e 2020 Discontinu ed Fluarix Quad (PF) (flu vacc [id number] 6mos up(PF)) 60 mcg (15 mcg x 0.5 ML INTRAMUSC Once 0.5 August 28, 2021 Discontinu ed Tiotropium Almo 2 PUFF INHALATION Every Morning 3 September 08, 2021 Active pneumococcal 23-maría ps vaccine 25 mcg/0.5 mL injection syringe 0.5 ML INTRAMUSC Once 0.5 December 25, 2021 Discontinu ed Methimazole 5 MG ORAL Daily 2021 Active Encounters Encounter Facility Location Admit/Visit Date Discharge/Departure Date Attending Provider Registered Inpatient [facility] January 22, 2022 11:29am Lexie Morris Registered Inpatient [facility] January 21, 2022 11:31am Lexie Morris Registered Inpatient [facility] January 20, 2022 4:55pm Lexie Morris Registered Inpatient [facility] January 20, 2022 4:54pm Elvin Hansen Departed Physician/Pro vider Office Visit [facility] Pulmonology December 25, 2021 3:14pm December 25, 2021 3:48pm Johnie Frazier Departed Physician/Pro vider Office Visit [facility] Pulmonology August 28, 2021 3:17pm August 28, 2021 3:42pm Johnie Frazier Departed Physician/Pro vider Office Visit [facility] Pulmonology May 22, 2021 2:47pm May 22, 2021 3:19pm Johnie Frazier Departed Physician/Pro vider Office Visit [facility] Pulmonology May 16, 2021 3:11pm May 16, 2021 11:59pm Johnie Frazier Departed Physician/Pro vider Office Visit [facility] Pulmonology February 27, 2021 7:57am February 27, [...] 2021 Historical influenza, injectable, quadrivalent, pf Septembe 2020 Administered Pneumococcal Polysacc. Vaccine, 23 valent Januaroseanna y 2021 Administered Influenza vaccine, quadrivalent, adjuvanted Sept ember 2019 Administered tetanus and diphth toxoids, adsorbed, adult Dylan chu 2021 Historical Plan of Care Instructions Cellulitis Dc [...] 8:00am Blood Pressure Systolic 131 100-180 Febr uary 2021 8:00am Blood Pressure Diastolic 81 70-85 Feb ruary 2021 8:00am Body Mass Index 43.9 January 21, 2022 3:56am
--- OUTSIDE RECORDS SUMMARY | 2024-01-12 17:47 | XMS_ITS | Continuity of Care Document ---
Author Name [facility] Address [address] [place] [address] Organization [facility] Address [address] [place] [address] Support Name Relationship Address Phone Doreenporfirioflakito Rachel Primary Care Provider [address] [facility] [address] [place], [place] [id number] Mary Ellen Sandoval Emergency Provider [address] [place] [address] Lexie Morris Admit Provider [address] [place] [id number] Jonah Prakash Attending Provider [address] [place] [id number] Allergies, Adverse Reactions, Alerts No known allergies. Medications Active Medications Medication Dose Units Route Sig Qty Days Start Date Status Ins tructions Budesonide-For moterol [Symbicort] 2 PUFF INHALATION Twice A Day 3 February 26, 2021 Active Roflumilast [Daliresp] 500 MCG ORAL Daily 90 August 06, 2021 Active Azelastine 2 SPRAY NASAL Twice A Day 30 August 07, 2021 Active Albuterol Sulfate [Proair Hfa] 2 PUFF INHALATION Q4H PRN For Shortness Of Breath 3 December 17, 2021 Active Apixaban [Eliquis] 5 MG ORAL Twice A Day December 22, 2019 Active Omeprazole 20 MG ORAL Daily 2019 Active Vitamin E 1000 UNIT ORAL Daily 2019 Active Acetaminophen [Tylenol] 650 MG ORAL Q6H PRN For Pain, Mild (Scale Score 1-3) December 22, 2019 Active Vitamin B Complex 1 TAB ORAL Daily December 22, 2019 Active Multivitamin-I pete-Folic Acid [Centrum] 1 TAB ORAL Daily December 22, 2019 Active [place]-3 Fatty Acids [Fish Oil Concentrate] 1000 MG ORAL Daily Septemb er 2019 Active Fluticasone Propionate 1 SPRAY NASAL Twice A Day January 08, 2021 Active Furosemide 40 MG ORAL Twice A Day January 08, 2021 Active Amiodarone 200 MG ORAL Daily 2020 Active Diltiazem Hcl [Cartia Xt] 240 MG ORAL Daily January 08, 2021 Active Metoprolol Succinate 100 MG ORAL Daily January 09, 2021 Active Tiotropium Dale [Spiriva Respimat] 2 PUFF INHALATION Every Morning September 08, 2021 Active Methimazole 5 MG ORAL Daily Dylan2021 Active Discontinued Medications Medication Dose Units Route [...] 2019 December 30, 2019 Disconti nued Tiotropium Dale [Spiriva With Handihaler] 18 MCG INHALAT ION [...] 100 MG ORAL Twice A Day 60 30 December 30, 2019 January 29, 2020 Disconti nued Budesonide 0.5 MG Via Nebuliz er TWICE A DAY (RESP ) 120 December 30, 2019 January 29, 2020 Disconti nued Diltiazem Hcl 90 MG ORAL Q6H 120 30 December 30, 2019 January 29, 2020 Disconti nued Chlorhexidin e Gluconate 15 ML MOUTH TOPICAL 3 Times A Day 30 30 December 30, 2019 January 29, 2020 [...] January 29, 2020 Disconti nued Fluarix Quad 6741-7307 (PF) (flu vacc [id number] 6mos up(PF)) 60 mcg (15 mcg x 4)/0.5 mL IM syringe 0.5 ML [facility] 2020 Disconti nued Roflumilast [Daliresp] 500 MCG ORAL Daily [facility], 2021 Disconti nued Metoprolol Succinate TAB ORAL Februar y 2020January 09, 2021 Disconti nued Prednisone 0 ORAL .COMP SANDER 20 8 May 16, 2021 May 24, 2021 Disconti nued 40mg po qAM x2days, 30 mg x2days,20 mg x2days,then 10mg x2 days, then off. Azithromycin 500 MG ORAL Daily 5 5 Ross e 2020May 21, 2021 Disconti nued Fluarix Quad 2638-3245 (PF) (flu vacc [id number] 6mos up(PF)) 60 mcg (15 mcg x 4)/0.5 mL IM syringe 0.5 ML INTRAMU SC [facility] 2020August 28, 2021 Disconti nued [...] for 23-polyvalent pneumococcal polysacchari de vaccine Active Atrial flutter Active Cellulitis Active Pulmonary hypertension Active Obstructive sleep apnea syndrome, severe Active H/O cardiac radiofrequency ablation Active Lung nodule Active Superficial thrombophlebitis Act cristo Body mass index (BMI) of 45.0 to 49.9 in adult Active Morbid obesity with body mass index (BMI) of 45. 0 to 49.9 in adult Active COPD exacerbation Active Procedures Procedure Date Status Blood Culture January 20, 2022 active Relevant Diagnostic Tests and/or Laboratory Data Laboratory Results Test Date/Time Result Interp. Ref. Range Result Co mment White Blood Count January 20, 2022 2:30pm 10.7 x10^3/uL 3.8-11.3 Red Blood Count January 20, 2022 2:30pm 4.67 x10^6/uL Low 4.7-6.1 Hemoglobin January 20, 2022 2:30pm 14.2 g/dL 13.0-17.0 Hematocrit January 20, 2022 2:30pm 42.9 % 38.0-49.0 Mean Corpuscular Volume January 20, 2022 2:30pm 91.9 fL 80-100 Mean Corpuscular Hemoglobin January 20, 2022 2:30pm 30.4 pg 26.7-33.0 Mean Corpuscular Hemoglobin Concent January 20, 2022 2:30pm 33.1 g/dL 31.6-35.6 RDW Coefficient of Variation January 20, 2022 2:30pm 15.3 % High 11.5-14.5 Platelet Count January 20, 2022 2:30pm 155 x10^3/uL 150-450 Mean Platelet Volume January 20, 2022 2:30pm 11.8 fL 7.4-13.5 Neutrophils (%) (Auto) January 20, 2022 2:30pm 72.3 % 38.0-84.0 Lymphocytes (%) (Auto) January 20, 2022 2:30pm 17.1 % Low 20.0-40.0 Monocytes (%) (Auto) January 20, 2022 2:30pm 8.8 % 3.0-13.0 Eosinophils (%) (Auto) January 20, 2022 2:30pm 1.2 % 0.0-6.0 Basophils (%) (Auto) January 20, 2022 2:30pm 0.6 % 0-2.0 Plasma Sodium January 20, 2022 4:08pm 140 MMOL/L 136-145 Plasma Potassium January 20, 2022 4:08pm 3.7 MMOL/L 3.5-5.1 Plasma Chloride January 20, 2022 4:08pm 99 MMOL/L 98-107 Plasma Carbon Dioxide January 20, 2022 4:08pm 34 MMOL/L High 21-32 Anion Gap January 20, 2022 4:08pm 7 4-14 Plasma Calcium January 20, 2022 4:08pm 8.8 MG/DL 8.7-10.4 Plasma Glucose Level January 20, 2022 4:08pm 92 MG/DL 74-106 Plasma Blood Urea Nitrogen January 20, 2022 4:08pm 15 9-23 Note: New reference range and method effective 07/13/2019. Plasma Creatinine January 20, 2022 4:08pm 0.74 mg/dL 0.70-1.30 Estimated GFR (CKD-EPI) January 20, 2022 4:08pm 104 60- NOTE: New 2020 CKD-EPI equation in use effective 11/13/21 Race specific equations for eGFR are no longer recommended by the [employer]. Lactic Acid Level January 20, 2022 3:04pm 0.4 MMOL/L 0.4-2.0 Procalcitonin January 20, 2022 4:08pm 0.25 ng/ml High 0-0.05 Result Interpretations: PCT =<0.5ng/mL: Systemic infection not likely PCT >0.5 and =<2.0 ng/mL: Moderate risk for progression to systemic infection PCT >2.0 ng/mL: High risk for progression to systemic infection PCT >=10 ng/mL High likelihood of severe sepsis or septic shock. Coronavirus 2018 (KIARA) January 20, 2022 4:56pm Negative A [...] Amplification (KIARA) Rapid Molecular test. Performed on [employer] This test has been authorized by the FDA under an Emergency Use Authorization (EAU) for use by authorized laboratories. Chief Complaint and Reason for Visit Encounter Admit Date Chief Complaint Reason for V isit Admitted Inpatient January 20, 2022 4:54pm CELLULITIS, SUPERFICIAL THROMBOPLEBITIS Atrial flutter Cellulitis COPD exacerbation Superficial thrombophlebitis Obstructive sleep apnea syndrome, severe Hospital Discharge Instructions No known hospital discharge [...] 2021 Active Prednisone 0 Route .COMPLEX Dylan chu 2019 Discontinu ed Taper as directed over [...] 7-10) December 22, 2019 Discontinu ed Tiotropium Dale 18 MCG INHALATION Daily December 22, 2019 [...] Diltiazem Hcl 90 MG ORAL Q6H 120 [facility] 2019 Discontinu ed Chlorhexidine Gluconate 15 ML MOUTH TOPICAL 3 Times A Day 30 December 30, 2019 Discontinu ed Sennosides 2 EACH ORAL At Bedtime 60 December 30, 2019 Discontinu ed Prednisone 50 MG ORAL WITH BREAKFAS T 10 2 December 30, 2019 Discontinu ed Please taper with 5 days of 25mg prednisone followed by return to the [facility] 10mg daily prednisone Lorazepam 0.5 MG ORAL Q12H PRN For Anxiety 60 December 30, 2019 Discontinu ed Metoprolol Tartrate 50 MG ORAL Q6H 120 December 30, 2019 Discontinu ed Insulin Lispro 0 UNIT SUBCUTANEO US With Meals and at Bedtime December 30, 2019 Discontinu ed Sodium Chloride 2 SPRAY NASAL Q4H PRN For Dry Nasal Passages 10 December 30, 2019 Discontinu ed Fluarix Quad 3054-8507 (PF) (flu vacc [id number] 6mos up(PF)) 60 mcg (15 mcg x 0.5 ML INTRAMUSC Once 0.5 August 29, 2020 Discontinu ed [place]-3 Fatty Acids 1000 MG ORAL Daily August 29, 2020 Active Roflumilast 500 MCG ORAL Daily 90 Aug Discontinu ed Fluticasone Propionate 1 SPRAY NASAL Twice A Day January 08, 2021 Active Furosemide 40 MG ORAL Twice A Day January 08, 2021 Active Metoprolol Succinate TAB ORAL January 08, 2021 Discontinu ed Amiodarone 200 MG ORAL Daily 2020 Active Diltiazem Hcl 240 MG ORAL Daily Fe bruary 2020 Active Metoprolol Succinate 100 MG ORAL Daily January 09, 2021 Active Prednisone 0 ORAL .COMPLEX 20 May 16, 2021 Discontinu ed 40mg po qAM x2days, 30 mg x2days,20 mg x2days,then 10mg x2 days, then off. Azithromycin 500 MG ORAL Daily 5 5 Ross e 2020 Discontinu ed Fluarix Quad [id number] (PF) (flu vacc [id number] 6mos up(PF)) 60 mcg (15 mcg x 0.5 ML INTRAMUSC Once 0.5 August 28, 2021 Discontinu ed Tiotropium [place] 2 PUFF INHALATION Every Morning 3 September 08, 2021 Active pneumococcal 23-maría ps vaccine 25 mcg/0.5 mL injection syringe 0.5 ML INTRAMUSC Once 0.5 December 25, 2021 Discontinu ed Methimazole 5 MG ORAL Daily 2021 Active Encounters Encounter Facility Location Admit/Visit Date Discharge/Departure Date Attending Provider Admitted Inpatient [place] [address] Unit January 20, 2022 4:54pm Jonah Prakash Departed Physician/Pr ovider Office Visit [facility] December 25, 2021 3:14pm December 25, 2021 3:48pm Johnie Frazier Departed Physician/Pr ovider Office Visit [facility] August 28, 2021 3:17pm August 28, 2021 3:42pm Johnie Frazier Departed Physician/Pr ovider Office Visit [facility] May 22, 2021 2:47pm May 22, 2021 3:19pm Johnie Frazier Departed Physician/Pr ovider Office Visit [facility] Pulmonology May 16, 2021 3:11pm May 16, 2021 11:59pm Johnie Frazier Departed Physician/Pr ovider Office Visit [facility] Pulmonology February 27, 2021 7:57am February 27, 2021 1:38pm Johnie Frazier Encounter Diagnosis Onset Date Atrial flutter Cellulitis COPD exacerbation Superficial thrombophlebitis Obstructive sleep apnea syndrome, severe Functional Status No known functional status. Immunizations Immunization Name Date Given Type COVID-19, Moderna January 26, 2021 Historical COVID-19, Moderna October 06, 2021 Historical influenza, injectable, quadrivalent, pf Septembe r 2020 Administered Pneumococcal Polysacc. Vaccine, 23 valent Januar y 2021 Administered Influenza vaccine, quadrivalent, adjuvanted Sept ember 2019 Administered tetanus and diphth toxoids, adsorbed, adult Dylan chu 2021 Historical Plan of Care No Known Plan of Care Information Social History Query Response Start Date Stop Date Smoking Status Former smoker Vital Signs Vital Reading Result Reference Range Collection Date/Time Height 5 ft 11 in January 20 1:34pm Weight 142.882 kg January 20 1:34pm Temperature 98.3 F 96.8 F-100.4 F January 20, 2022 6:46pm Pulse 62 BPM 50-90 January 20 6:46pm Respiration 16 RPM -January 20 6:46pm Pulse Oximetry 95 % 95-100 January 20, 2022 6:46pm Blood Pressure Systolic 149 100-180 Febr uary 2021 6:46pm Blood Pressure Diastolic 88 70-85 Feb ruary 2021 6:46pm Body Mass Index 43.9 January 20, 2022 1:34pm
--- OUTSIDE RECORDS SUMMARY | 2024-01-12 17:47 | XMS_ITS | Continuity of Care Document ---
Author Name [facility] Address [address] [place] [address] Organization [facility] Address [address] [place] [address] Support Name Relationship Address Phone Rachel Hidalgo Primary Care Provider 1 [facility] [address] [place] [address] Johnie Frazier Attending Provider [address] [place] [id number] Rachel Hidalgo Primary Care Provider 1 [facility] [address] [place] [address] Johnie Frazier Attending Provider [address] [place] [id number] Allergies, Adverse Reactions, Alerts No known allergies. Medications Active Medications Medication Dose Units Route Sig Qty Days Start Date Status Ins tructions Albuterol Sulfate [Proair Hfa] 2 PUFF INHALATION Q4H PRN For Shortness Of Breath 3 September 21, 2020 Active Budesonide-For moterol [Symbicort] 2 PUFF INHALATION Twice A Day 3 February 26, 2021 Active Roflumilast [Daliresp] 500 MCG ORAL Daily August 06, 2021 Active Azelastine 2 SPRAY NASAL Twice A Day August 07, 2021 Active Tiotropium [place] [Spiriva With Handihaler] 18 MCG INHALATION Daily December 22, 2019 Active Apixaban [Eliquis] [...] TAB ORAL Daily December 22, 2019 Active Fluticasone Propionate 1 SPRAY NASAL Twice A Day January 08, 2021 Active Furosemide 40 MG ORAL Twice A Day January 08, 2021 Active Amiodarone 200 MG ORAL Daily Febru chu 2020 Active Diltiazem Hcl [Cartia Xt] 240 MG ORAL Daily January 08, 2021 Active Discontinued Medications Medication Dose Units Route Sig Qty Days Start Date Discontinued Date Status Instructions Budesonide-F ormoterol [Symbicort] 2 PUFF INHALAT ION [...] 22, 2019 December 30, 2019 Disconti nued Roflumilast [Daliresp] 500 MCG ORAL [...] January 29, 2020 Disconti nued Fluarix Quad 8353-8194 (PF) (flu vacc [id number] 6mos up(PF)) 60 mcg (15 mcg x 4)/0.5 mL IM syringe 0.5 ML INTRAMU SC Once 0.5 [facility] 2019August 29, 2020 Disconti nued Shannock-3 Fatty Acids [Fish Oil Concentrate] 1000 MG ORAL Daily [facility] 2019 Unverifi ed Roflumilast [Daliresp] 500 MCG ORAL Daily 90 [facility] 2019August 06, 2021 Disconti nued Metoprolol Succinate TAB ORAL Februar y 2020January 09, 2021 Disconti nued Metoprolol Succinate 100 MG ORAL Daily Februar y 2020 Unverifi ed Prednisone 0 ORAL .COMP SANDER 20 May 16, 2021 May 24, 2021 Disconti nued 40mg po qAM x2days, 30 mg x2days,20 mg x2days,then 10mg x2 days, then off. Azithromycin 500 MG ORAL Daily 5 5 Ross e 2020May 21, 2021 Disconti nued Fluarix Quad [id number] (PF) (flu vacc [id number] 6mos up(PF)) 60 mcg (15 mcg x 4)/0.5 mL IM syringe 0.5 ML INTRAMU SC Once 0.5 [facility] 2020August 28, 2021 Disconti nued Problem List Active Problems Medical Problem Onset Date Status COPD, group D, by GOLD 2017 classification Active Chronic respiratory failure with hypercapnia Active Chronic respiratory failure with hypoxia Active Dyspnea on exertion Active Need for influenza vaccination A ctive Atrial flutter Active Pulmonary hypertension Active Obstructive sleep apnea syndrome, severe Active H/O cardiac radiofrequency ablation Active Lung nodule Active Body mass index (BMI) of 45.0 to 49.9 in adult Active Morbid obesity with body mass index (BMI) of 45. 0 to 49.9 in adult Active COPD exacerbation Active Procedures No known history of procedures. Reason for Referral Reason for Referral Date Referral was Provided Provider Office Contact Location January 09, 2021 Johnie Frazier [phone] [place] [address] Relevant Diagnostic Tests and/or Laboratory Data No known relevant diagnostic tests, laboratory data, and/or discharge summary. Chief Complaint and Reason for Visit Encounter Admit Date Chief Complaint Reason for V isit Departed Physician/Provider Office Visit August 28, 2021 3:17pm 3M COPD/VILLELA/DEVIN/CHRONIC RESP Need for influenza vaccination Chronic respiratory failure with hypercapnia Chronic respiratory failure with hypoxia COPD, group D, by GOLD 2017 classification Morbid obesity with body mass index (BMI) of 45.0 to 49.9 in adult Obstructive sleep apnea syndrome, severe Pulmonary hypertension Hospital Discharge Instructions No known hospital discharge instructions. Hospital Discharge Medications Medication Dose Units Route Sig Qty Days Order Date Status Instructions Albuterol Sulfate 2 PUFF INHALATION Q4H PRN For Shortnes s Of Breath 3 September 21, 2020 Active Budesonide-Form oterol 2 PUFF INHALATION Twice A Day 10.2 February 23, 2021 Discontinu ed Rinse mouth after use Budesonide-Form oterol 2 PUFF INHALATION Twice A Day 3 February 26, 2021 Active Roflumilast 500 MCG ORAL Daily 90 Sept emb2020 Active Azelastine 2 SPRAY NASAL Twice A Day 30 August 07, 2021 Active Prednisone 0 Route .COMPLEX 2019 Discontinu ed Taper as directed over [...] 7-10) December 22, 2019 Discontinu ed Tiotropium Bisco[place] 18 MCG INHALATION Daily December 22, 2019 Active Roflumilast 500 MCG ORAL Daily Dylan 2019 Discontinu ed Apixaban 5 MG ORAL [...] NASAL Q4H PRN For Dry Nasal Passages 09 29December 30, 2019 Discontinu ed Fluarix Quad [id number] (PF) (flu vacc [id number] 6mos up(PF)) 60 mcg (15 mcg x 0.5 ML INTRAMUSC Once 0.5 August 29, 2020 Discontinu ed Shannock-3 Fatty Acids 1000 MG ORAL Daily August 29, 2020 Unverified Roflumilast 500 MCG ORAL Daily 90 Aug Discontinu ed Fluticasone Propionate 1 SPRAY NASAL Twice A Day January 08, 2021 Active Furosemide 40 MG ORAL Twice A Day January 08, 2021 Active Metoprolol Succinate TAB ORAL January 08, 2021 Discontinu ed Amiodarone 200 MG ORAL Daily Febru chu2020 Active Diltiazem Hcl 240 MG ORAL Daily Fe bru2020 Active Metoprolol Succinate 100 MG ORAL Daily January 09, 2021 Unverified Prednisone 0 ORAL .COMPLEX 20 May 16, 2021 Discontinu ed 40mg po qAM x2days, 30 mg x2days,20 mg x2days,then 10mg x2 days, then off. Azithromycin 500 MG ORAL Daily 5 5 May Discontinu ed Fluarix Quad [id number] (PF) (flu vacc [id number] 6mos up(PF)) 60 mcg (15 mcg x 0.5 ML INTRAMUSC Once 0.5 August 28, 2021 Discontinu ed Fluarix Quad (PF) (flu vacc [id number] 6mos up(PF)) 60 mcg (15 mcg x 0.5 ML Once 0.5 August 28, 2021 Discontinu ed Fluarix Quad (PF) (flu vacc [id number] 6mos up(PF)) 60 mcg (15 mcg x 0.5 ML Once 0.5 August 28, 2021 Discontinu ed Fluarix Quad 9821-5766 (PF) (flu vacc [id number] 6mos up(PF)) 60 mcg (15 mcg x 0.5 ML Once 0.5 August 28, 2021 Discontinu ed Fluarix Quad (PF) (flu vacc [id number] 6mos up(PF)) 60 mcg (15 mcg x 0.5 ML Once 0.5 August 28, 2021 Discontinu ed Fluarix Quad 4898-8922 (PF) (flu vacc [id number] 6mos up(PF)) 60 mcg (15 mcg x 0.5 ML Once 0.5 August 28, 2021 Discontinu ed Fluarix Quad 9616-3143 (PF) (flu vacc [id number] 6mos up(PF)) 60 mcg (15 mcg x 0.5 ML Once 0.5 August 28, 2021 Discontinu ed Fluarix Quad 7896-2601 (PF) (flu vacc [id number] 6mos up(PF)) 60 mcg (15 mcg x 0.5 ML Once 0.5 August 28, 2021 Discontinu ed Fluarix Quad 1505-2695 (PF) (flu vacc [id number] 6mos up(PF)) 60 mcg (15 mcg x 0.5 ML Once 0.5 August 28, 2021 Discontinu ed Fluarix Quad 9446-6006 (PF) (flu vacc [id number] 6mos up(PF)) 60 mcg (15 mcg x 0.5 ML Once 0.5 August 28, 2021 Discontinu ed Fluarix Quad 2888-3415 (PF) (flu vacc [id number] 6mos up(PF)) 60 mcg (15 mcg x 0.5 ML Once 0.5 August 28, 2021 Discontinu ed Fluarix Quad (PF) (flu vacc [id number] 6mos up(PF)) 60 mcg (15 mcg x 0.5 ML Once 0.5 August 28, 2021 Discontinu ed Fluarix Quad 5106-4809 (PF) (flu vacc [id number] 6mos up(PF)) 60 mcg (15 mcg x 0.5 ML Once 0.5 August 28, 2021 Discontinu ed Fluarix Quad 1780-5504 (PF) (flu vacc [id number] 6mos up(PF)) 60 mcg (15 mcg x 0.5 ML Once 0.5 August 28, 2021 Discontinu ed Encounters Encounter Facility Location Admit/Visit Date Discharge/Departure Date Attending Provider Departed Physician/Pro vider Office Visit [facility] August 28, 2021 3:17pm August 28, 2021 3:42pm Johnie Frazier Departed Physician/Pro vider Office Visit [facility] Pul[facility] May 22, 2021 2:47pm May 22, 2021 3:19pm Johnie Frazier Departed Physician/Pro vider Office Visit [facility] Pulmonology May 16, 2021 3:11pm May 16, 2021 11:59pm Johnie Frazier Departed Physician/Pro vider Office Visit [facility] Pulmonology February 27, 2021 7:57am February 27, 2021 1:38pm Johnie Frazier Departed Physician/Pro vider Office Visit [facility] Pulmonology January 09, 2021 8:22am January 09, 2021 8:53am Johnie Frazier Registered Inpatient [facility] January 08, 2021 11:43am Rossy Sanchez Departed Physician/Pro vider Office Visit [facility] Pulmonology November 07, 2020 8:01am November 07, 2020 9:12am Johnie Frazier Encounter Diagnosis Onset Date Need for influenza vaccination Chronic respiratory failure with hyperca pnia Chronic respiratory failure with hypoxia COPD, group D, by GOLD 2017 classificati on Morbid obesity with body mass index (BMI ) of 45.0 to 49.9 in adult Obstructive sleep apnea syndrome, severe Pulmonary hypertension Functional Status No known functional status. Immunizations Immunization Name Date Given Type influenza, injectable, quadrivalent, pf [facility] 2020 Administered Influenza vaccine, quadrivalent, adjuvanted Aug Administered Plan of Care No Known Plan of Care Information Social History No known social history. Vital Signs Vital Reading Result Reference Range Collection Date/Time Height 5 ft 11 in August 28, 2 021 3:21pm Weight 143.335 kg August 28, 2 021 3:21pm Pulse 65 BPM 50-90 August 28, 2 021 3:21pm Respiration 16 RPM 12-August 28, 2 021 3:21pm Pulse Oximetry 94 % 95-100 August 28, 2021 3:21pm Blood Pressure Systolic 132 100-180 Aug 3:21pm Blood Pressure Diastolic 80 70-85 [facility] 2020 3:21pm Body Mass Index 44.0 August 3:21pm
--- OUTSIDE RECORDS SUMMARY | 2024-01-12 17:47 | XMS_ITS | Continuity of Care Document ---
Author Name [facility] Address [address] [place] [address] Organization [facility] Address [address] [place] [address] Support Name Relationship Address Phone Rachel Hidalgo Primary Care Provider 1 [facility] [address] [place] [address] Johnie Frazier Attending Provider [address] [place] [phone] Rachel Hidalgo Primary Care Provider 1 [facility] [address] [place] [address] Johnie Frazier Attending Provider [address] [place] [phone] Allergies, Adverse Reactions, Alerts No known allergies. Medications Active Medications Medication Dose Units Route Sig Qty Days Start Date Status Ins tructions Roflumilast [Daliresp] 500 MCG ORAL Daily 90 August 06, 2021 Active Azelastine 2 SPRAY NASAL Twice A Day August 07, 2021 Active Albuterol Sulfate [Proair Hfa] 2 PUFF INHALATION Q4H PRN For Shortnes s Of Breath 3 December 17, 2021 Active Budesonide-Formo terol [Symbicort] 2 PUFF INHALATION Twice A Day 3 February 21, 2022 Active Apixaban [Eliquis] 5 MG ORAL Twice [...] D3) [Vitamin D3] 25 MCG ORAL Daily Februar y 2021 Active Multivitamin TAB Daily Feb ruary 2021 Active Doxycycline Hyclate 100 MG ORAL Twice A Day 16 January 22, 2022 Active Hampton-3 Fatty Acids [Fish Oil Concentrate] 1000 MG [...] ORAL Daily January 09, 2021 Active Tiotropium Machias [Spiriva Respimat] 2 PUFF INHALATION Every Morning [...] 2021 Disconti nued Rinse mouth after use Budesonide-F ormoterol [Symbicort] 2 PUFF INHALAT ION Twice A Day 3 February 26, 2021 February 21, 2022 Disconti nued Prednisone 0 Route .COMP SANDER December 22, [...] 2019 December 30, 2019 Disconti nued Tiotropium [place] [Spiriva With Handihaler] 18 MCG INHALAT ION [...] January 29, 2020 Disconti nued Fluarix Quad [id number] (PF) (flu vacc [id number] 6mos up(PF)) 60 mcg (15 mcg x [...] Disconti nued Fluarix Quad (PF) (flu vacc [id number] 6mos up(PF)) 60 mcg (15 mcg x 4)/0.5 mL IM syringe 0.5 ML INTRAMU SC Once 0.5 Septemb 2020August 28, 2021 Disconti nued pneumococcal 23-maría [...] Lung nodule Active Superficial thrombophlebitis Act cristo Morbid obesity with body mass index (BMI) [...] GFR (CKD-EPI) January 21, 2022 7:40am 103 >60 NOTE: New 2020 CKD-EPI equation in use [...] 2019 (KIARA) January 20, 2022 4:56pm Negative Negative A Negative Resul t means that [...] Amplification (KIARA) Rapid Molecular test. Performed on [employer] This test has been authorized by [...] Health Care Proxy Name luis manuel hairston [phone] January 20, 2022 7:51pm MOLST Form Reviewed/Complete d With Patient No January 20, 2022 7:51pm Chief Complaint and Reason for Visit Encounter Admit Date Chief Complaint Reason for V isit Departed Physician/Provider Office Visit May 28, 2022 3:09pm 4m f/u Chronic respiratory failure with hypercapnia Chronic respiratory failure with hypoxia COPD, group D, by GOLD 2017 classification Dyspnea on exertion Morbid obesity with body mass index (BMI) of 45.0 to 49.9 in adult Pulmonary hypertension Hospital Discharge Instructions Query Response Comment Date/Time [...] Twice A Day 3 February 26, 2021 Discontinu ed Roflumilast 500 MCG ORAL Daily 90 Aug Active Azelastine 2 SPRAY NASAL Twice A Day 30 August 07, 2021 Active Albuterol Sulfate 2 PUFF INHALATION Q4H PRN For Shortnes s Of Breath 3 December 17, 2021 Active Budesonide-Form oterol 2 PUFF INHALATION Twice A Day 3 February 21, 2022 Active Prednisone 0 Route .COMPLEX 2019 Discontinu [...] 7-10) December 22, 2019 Discontinu ed Tiotropium [place] 18 MCG INHALATION Daily December 22, 2019 Discontinu ed Roflumilast 500 MCG ORAL Daily Dylan fraga2019 Discontinu ed Apixaban 5 MG ORAL Twice [...] 90 MG ORAL Q6H 120 30 Ja [facility] 2019 Discontinu ed Chlorhexidine Gluconate 15 ML [...] Passages 09 29December 30, 2019 Discontinu ed Cholecalciferol (Vitamin D3) 25 MCG ORAL Daily Februar y 2021 Active Multivitamin TAB Daily Feb ruary 2021 Active Doxycycline Hyclate 100 MG ORAL Twice A Day January 22, 2022 Active Fluarix Quad (PF) (flu vacc [id number] 6mos up(PF)) 60 mcg (15 mcg x 0.5 ML INTRAMUSC Once 0.5 August 29, 2020 Discontinu ed Hampton-3 Fatty Acids 1000 MG ORAL Daily August [...] Discontinu ed Fluarix Quad (PF) (flu vacc [id number] 6mos up(PF)) 60 mcg (15 mcg x 0.5 ML INTRAMUSC Once 0.5 August 28, 2021 Discontinu ed Tiotropium Machias 2 PUFF INHALATION Every Morning 3 September 08, 2021 Active pneumococcal 23-maría ps vaccine 25 mcg/0.5 mL injection syringe 0.5 ML INTRAMUSC Once 0.5 December 25, 2021 Discontinu ed Methimazole 5 MG ORAL Daily 2021 Active Encounters Encounter Facility Location Admit/Visit Date Discharge/Departure Date Attending Provider Departed Physician/Pro vider Office Visit [facility] May 28, 2022 3:09pm May 28, 2022 3:50pm Johnie Frazier Registered Inpatient [facility] Hospitalist January 22, 2022 11:29am Lexie Morris Registered Inpatient [facility] Hospitalist January 21, 2022 11:31am Lexie Morris Registered Inpatient [facility] Hospitalist January 20, 2022 4:55pm Lexie Morris Registered Inpatient [facility] Cardiology January 20, 2022 4:54pm Elvin Hansen Departed Physician/Pro vider Office Visit [facility] Pulmonology December 25, 2021 3:14pm December 25, 2021 3:48pm Johnie Frazier Departed Physician/Pro vider Office Visit [facility] Pulmonology August 28, 2021 3:17pm August 28, 2021 3:42pm Johnie Frazier Encounter Diagnosis Onset Date Chronic respiratory failure with hyperca pnia Chronic respiratory failure with hypoxia COPD, group D, by GOLD 2017 classificati on Dyspnea on exertion Morbid obesity with body mass index (BMI ) of 45.0 to 49.9 in adult Pulmonary hypertension Functional Status Query Response Date Recorded Comment Comprehension Ability Understands Concepts January 2:20pm Query Response Date Recorded Comment Physical Dependency Level Independent January 22 2:20pm Immunizations Immunization Name Date Given Type COVID-19, Moderna January 26, 2021 Historical COVID-19, Moderna October 06, 2021 Historical COVID-19, Moderna April 20, 2022 Historical influenza, injectable, quadrivalent, pf Septembe r [...] Collection Date/Time Height 5 ft 11 in May 28, 2022 3 :26pm Weight 154.675 kg May 28, 2022 3 :26pm Temperature 98.0 F 96.8 F-100.4 F January 22, 2022 8:00am Pulse 86 BPM 50-90 May 28, 2022 3 :26pm Respiration 18 RPM 12-20 May 28, 2022 3 :26pm Pulse Oximetry 93 % 95-100 May 28, 2022 3:26pm Blood Pressure Systolic 142 100-139 May 28, 2022 3:26pm Blood Pressure Diastolic 70 70-89 Ross 2021 3:26pm Body Mass Index 47.5 May 28 3:26pm
--- OUTSIDE RECORDS SUMMARY | 2024-01-12 17:47 | XMS_ITS | Continuity of Care Document ---
Author Name [facility] Address [address] [place] [id number] Organization [facility] Address [address] [place] [address] Support Name Relationship Address Phone Rachel Hidalgo Primary Care Provider [facility] [address] [place], [place] [id number] Hector Coronado Emergency Provider [address] [address] Brad Slaughter Admit Provider [address] [place] [phone] Benny Raymundo Attending Provider [address] [place] [phone] Allergies, Adverse Reactions, Alerts No known allergies. Medications Active Medications Medication Dose Units Route Sig Qty Days Start Date Status Instructions Benzonatate [Tessalon Perles] 100 MG ORAL 3 TIMES A DAY PRN For Cough December 22, 2019 Active Codeine-Guaife nesin [Virtussin Ac] 10 ML ORAL Q4H PRN For Cough December 22, 2019 Active Tiotropium Henrietta [Spiriva With Handihaler] 18 MCG INHALATION DAILY December 22, 2019 Active Roflumilast [Daliresp] 500 MCG ORAL DAILY December 22, 2019 Active Apixaban [Eliquis] 5 MG ORAL Twice A Day December 22, 2019 Active Azelastine 2 SPRAY NASAL DAILY PRN For Allergy Symptoms December 22, 2019 Active Albuterol Sulfate [Proair Hfa] 2 PUFF INHALATION Q4H PRN For Shortness Of Breath December 22, 2019 Active Budesonide-For moterol [Symbicort] 2 PUFF INHALATION Twice A Day December 22, 2019 Active Omeprazole 20 MG ORAL DAILY 2019 Active Albuterol Sulfate [Proair Hfa] 2 PUFF INHALATION Q4H PRN For Shortness Of Breath December 22, 2019 Active Vitamin E 1000 UNIT ORAL DAILY 2019 Active Acetaminophen [Tylenol] 650 MG ORAL Q6H PRN For Pain, Mild (Scale Score 1-3) December 22, 2019 Active Vitamin B Complex 1 TAB ORAL DAILY December 22, 2019 Active Multivitamin-I pete-Folic Acid [Centrum] 1 TAB ORAL DAILY December 22, 2019 Active Furosemide 40 MG INTRAVEN 0800,1600 240 30 [facility]2019 Active Ipratropium-Al buterol 1 AMP Via Nebulizer Q4H AROUND THE CLOCK (RESP) December 30, 2019 Active Amiodarone 400 MG ORAL Q8H 36 6 2019 Active Amiodarone 200 MG ORAL DAILY 2019 Active to be started AFTER 400mg load completes Amlodipine 5 MG ORAL DAILY 2019 Active Acetazolamide Sodium 250 MG INTRAVEN DAILY 7 7 December 30, 2019 Active Docusate Sodium 100 MG ORAL Twice A Day 60 December 30, 2019 Active Budesonide 0.5 MG Via Nebulizer TWICE A DAY (RESP) 120 December 30, 2019 Active Diltiazem Hcl 90 MG ORAL Q6H 120 [facility] 2019 Active Chlorhexidine Gluconate 15 ML MOUTH TOPICAL 3 TIMES A DAY 30 December 30, 2019 Active Sennosides [Senna Lax] 2 EACH ORAL AT BEDTIME 60 December 30, 2019 Active Prednisone 50 MG ORAL WITH BREAKFAST 10 2 December 30, 2019 Active Please taper with 5 days of 25mg prednisone followed by return to [facility] 10mg daily prednisone Lorazepam 0.5 MG ORAL Q12H PRN For Anxiety 60 December 30, 2019 Active Metoprolol Tartrate 50 MG ORAL Q6H 120 December 30, 2019 Active Insulin Lispro [Humalog U-100 Insulin] 0 UNIT SUBCUTANEOUS With Meals and at Bedtime 30 December 30, 2019 Active Sodium Chloride [Deep Sea Nasal] 2 SPRAY NASAL Q4H PRN For Dry Nasal Passages 10 December 30, 2019 Active Discontinued Medications Medication Dose Units Route Sig Qty Days Start Date Discontinued Date Status Instructions Prednisone 0 Route .COMP SANDER December 22, 2019 December 30, 2019 Disconti nued Taper as directed over ten days, then discontinue Cefpodoxime 200 MG ORAL Twice A Day December 22, 2019 December 30, 2019 Disconti nued for 7 days Diltiazem Hcl [Cardizem Cd] 240 MG ORAL DAILY 2019December 30, 2019 Disconti nued Metoprolol Succinate [Toprol Xl] 100 MG ORAL DAILY December 22, 2019 December 30, 2019 Disconti nued Hydrochloroth iazide 25 MG ORAL DAILY December 22, 2019 December 30, 2019 Disconti nued Oxycodone [Roxicodone] 5 MG ORAL Q4H PRN For Pain, Sever e (Scal e Score 7-10) December 22, 2019 December 30, 2019 Disconti nued Problem List Active Problems Medical Problem Onset Date Status Obstructive sleep apnea Active Chronic respiratory failure Acti ve Acute and chronic respiratory failure Active Atrial flutter Active H/O cardiac radiofrequency ablation Active Acute exacerbation of chronic obstructive pulmon chu disease Active Acute respiratory acidosis Activ e Procedures No known history of procedures. Relevant Diagnostic Tests and/or Laboratory Data Laboratory Results Test Date/Time Result Interp. Ref. Range Result Co mment White Blood Count 15.3 x10^3/uL High 3.8-11.3 Red Blood Count 4.94 x10^6/uL 4.7-6.1 Hemoglobin 14.2 g/dL 13.0-17.0 Hematocrit 44.6 % 38.0-49.0 Mean Corpuscular Volume 90.3 fL 80-100 Mean Corpuscular Hemoglobin 28.7 pg 26.7-33.0 Mean Corpuscular Hemoglobin Concent 31.8 g/dL 31.6-35.6 RDW Coefficient of Variation 16.1 % High 11.5-14.5 Platelet Count 151 x10^3/uL 150-450 Mean Platelet Volume 11.3 fL 7.4-13.5 Neutrophils (%) (Auto) 84.7 % High 38.0-84.0 Lymphocytes (%) (Auto) 7.8 % Low 20.0-40.0 Monocytes (%) (Auto) 6.5 % 3.0-13.0 Eosinophils (%) (Auto) 0.8 % 0.0-6.0 Basophils (%) (Auto) 0.2 % 0-2.0 Neutrophils % (Manual) 91.0 % High 38-84 Lymphocytes % (Manual) 2.0 % Low 20-40 Monocytes % (Manual) 4.0 % 3-12 Band Neutrophils % (Manual) 2.0 % 0-4 Metamyelocytes % (manual) 1.0 High 0-0 Red Blood Cell Morphology Normal Platelet Estimate Adequate Smear Scan Auto diff confirmed Prothrombin Time 11.8 Sec 9.4-12.5 Prothromb Time International Ratio 1.0 0.8-1.1 INTERPRE TIVE NOTE: No anticoagulant: 0.8 to 1.1 Standard dose anticoagulant: 2.0 to 3.0 High dose anticoagulant: 2.5 to 3.5 Critical INR: > 5.0 Urine Color Yellow Urine Appearance Clear Urine Specific [place] 1.033 1.001-1.03 5 Urine Leukocyte Esterase Negative Urine pH 5.0 pH 4.0-8.0 Urine Protein 100 mg/dL Urine Glucose Negative mg/dL Urine Ketones Negative mg/dL Urine Bilirubin Negative Urine Nitrite Negative Urine Occult Blood Negative Urine WBC 0-2 Urine RBC 0-2 /hpf Urine Squamous Epithelial Cells Rare Urine Hyaline Casts Rare Urine Mucus Few Urine Bacteria Negative Sodium Level 136 MMOL/L 136-145 Plasma Sodium 136 MMOL/L 136-145 Potassium Level 3.9 MMOL/L 3.5-5.1 Plasma Potassium 4.0 MMOL/L 3.5-5.1 Chloride Level 89 MMOL/L Low 98-107 Plasma Chloride 89 MMOL/L Low 98-107 Carbon Dioxide Level > 40 mmol/L High 20-31 CRITICAL VALUE REPORTED AND READ BACK [id number] Plasma Carbon Dioxide > 40 MMOL/L High 21-32 CRITICAL VALUE REPORTED AND READ BACK [id number] Anion Gap TNP Test not p erformed Unable to calculate. Calcium Level 8.6 mg/dL Low 8.7-10.4 Plasma Calcium 8.8 MG/DL 8.7-10.4 Glucose Level 198 MG/DL High 74-106 Plasma Glucose Level 114 MG/DL High 74-106 Blood Urea Nitrogen 30 mg/gL High 9-23 Plasma Blood Urea Nitrogen 16 9-23 Note: New refer ence range and method effective 07/13/2019. Creatinine 0.8 mg/dL 0.6-1.1 Plasma Creatinine 0.6 MG/DL 0.6-1.1 No te: New reference range and method effective 07/13/2019. Estimated GFR (Non- 99.3 60- Estima janet GFR units = mL/min/1.73 m??? IDMS traceable MDRD study equation in use effective 02/17/18 Estimated GFR () 120.3 60- Estimated GFR units = mL/min/1.73 m??? IDMS traceable MDRD study equation in use effective 02/17/18 Total Protein 6.1 g/dL 5.7-8.2 Albumin 4.3 g/dL 3.2-4.8 Direct Bilirubin 0.1 mg/dL 0.0-0.3 Total Bilirubin 0.4 mg/dL 0-1.2 Alkaline Phosphatase 57 U/L 46-116 Aspartate Amino Transf (AST/SGOT) 24 U/L 13-40 Alanine Aminotransferase (ALT/SGPT) 39 U/L 7-40 Sulfasalazine m ay interfere with this assay, specimens should be drawn prior to dose. Phosphorus Level 2.9 MG/DL 2.4-5.1 Not e: New reference range and method effective 07/13/2019. B-Type Natriuretic Peptide 39.6 pg/mL High Fasting Glucose 91 MG/DL 74-99 POC Capillary Blood Glucose (Chem) 191 MG/DL High 74-106 Hemoglobin A1c 6.2 % High 4.0-5.6 JONATHAN L IS BELOW 5.7 %, CONFIRMED WITH REPEAT TESTING PREDIABETES IS 5.7 - 6.4 %, CONFIRMED WITH REPEAT TESTING DIABETES IS 6.5 % OR ABOVE, CONFIRMED WITH REPEAT TESTING BASED ON 2013 ADA GUIDELINES Estimated Average Glucose 131 Magnesium Level 2.1 MG/DL 1.6-2.6 Prolactin 4.7 ng/mL 2.1-17.7 Please not e new reference ranges and method effective 07/13/2019. Normally Menstruating Females Non- Females 2.8 - 29.2 ng/mL Females 9.7 - >200 ng/mL Postmenopausal Females 1.8 - 20.3 ng/mL Males 2.1 - 17.7 ng/mL Troponin I 0.02 ng/mL 0.00-0.45 Procalcitonin 0.04 ng/ml 0-0.05 Resul t Interpretations: PCT =<0.5ng/mL: Systemic infection not likely PCT >0.5 and =<2.0 ng/mL: Moderate risk for progression to systemic infection PCT >2.0 ng/mL: High risk for progression to systemic infection PCT >=10 ng/mL High likelihood of severe sepsis or septic shock. Rheumatoid Factor Negative Anti-Nuclear Antibody Screen Negative Venous Blood pH 7.44 High 7.32-7.43 Venous Blood Partial Pressure CO2 66 mmHg High 41-51 Venous Blood Partial Pressure O2 55 mmHg High 30-40 Venous Blood Oxygen Saturation 90.1 % High 60.0-80.00 VBG O2 saturati on result is dependent upon location the specimen is drawn from. VBG O2 saturation drawn from a PA catheter is the equivalent of a SvO2 (mixed venous oxygenation saturation) VBG O2 saturation drawn from a central line is the equivalent of a ScvO2 (central venous oxygenation saturation) Venous Blood HCO3 44 mmol/L High 22-29 FiO2 60 Blood Gas Liter Flow 10 L/M 0-20 Blood Gas IPAP 20 cmH2O Blood Gas EPAP 5 cmH2O Blood Gas Respiration Rate 25 Blood Gas Comments Hfnc Blood Gas Patient Temperature 36.6 C Blood Gas Puncture Site Rta Proteinase 3 (PR3) <1.0 AI V alue Interpretation <1.0 AI: No Antibody Detected >or=1.0 AI: Antibody Detected Autoantibodies to proteinase-3 (ND-3) are accepted as characteristic for granulomatosis with polyangiitis (GPA, Gera's), and are detectabale in 95% of the histologically proven cases. The cytoplasmic IFA pattern, (c-ANCA), is based largely on autoantibody to ND-3 which serves as the primary antigen. These autoantibodies are present in active disease. THIS TEST WAS PERFORMED AT: [facility] [address] [id number] Jose Cooper M.D., Ph.D.,Director of Laboratories Myeloperoxidase Antibody <1.0 AI Value Interpret ation <1.0 AI: No Antibody Detected >or=1.0 AI: [...] Admit Date Chief Complaint Reason for V mattt Discharged Inpatient December 22, 2019 4:39pm COPD EXACERBATION Acute and chronic respiratory failure Acute exacerbation of chronic obstructive pulmonary disease Acute respiratory acidosis Hospital Discharge Instructions No known hospital discharge instructions. Hospital Discharge Medications Medication Dose Units Route Sig Qty Days Order Date Status Instructions Prednisone 0 Route .COMPLEX 2019 Discontinue d Taper as directed over ten days, then discontinue Cefpodoxime 200 MG ORAL Twice A Day December 22, 2019 Discontinue d for 7 days Diltiazem Hcl 240 MG ORAL DAILY Jaskaran hightower 2019 Discontinue d Metoprolol Succinate 100 MG ORAL DAILY December 22, 2019 Discontinue d Benzonatate 100 MG ORAL 3 TIMES A DAY PRN For Cough December 22, 2019 Active Codeine-Guaifen esin 10 ML ORAL Q4H PRN For Cough December 22, 2019 Active Hydrochlorothia zide 25 MG ORAL DAILY December 22, 2019 Discontinue d Oxycodone 5 MG ORAL Q4H PRN For Pain, Severe (Scale Score 7-10) December 22, 2019 Discontinue d Tiotropium Henrietta 18 MCG INHALATION DAILY December 22, 2019 Active Roflumilast 500 MCG ORAL DAILY 2019 Active Apixaban 5 MG ORAL Twice A Day December 22, 2019 Active Azelastine 2 SPRAY NASAL DAILY PRN For Allergy Symptoms December 22, 2019 Active Albuterol Sulfate 2 PUFF INHALATION Q4H PRN For Shortnes s Of Breath December 22, 2019 Active Budesonide-Form oterol 2 PUFF INHALATION Twice A Day December 22, 2019 Active Omeprazole 20 MG ORAL DAILY 2019 Active Albuterol Sulfate 2 PUFF INHALATION Q4H PRN For Shortnes s Of Breath December 22, 2019 Active Vitamin E 1000 UNIT ORAL DAILY 2019 Active Acetaminophen 650 MG ORAL Q6H PRN For Pain, Mild (Scale Score 1-3) December 22, 2019 Active Vitamin B Complex 1 TAB ORAL DAILY December 22, 2019 Active Multivitamin-Ir on-Folic Acid 1 TAB ORAL DAILY 2019 Active Furosemide 40 MG INTRAVEN 0800,160 0 240 30 December 30, 2019 Active Ipratropium-Alb uterol 1 AMP Via Nebulizer Q4H AROUND THE CLOCK (RESP) 30 December 30, 2019 Active Amiodarone 400 MG ORAL Q8H 36 6 2019 Active Amiodarone 200 MG ORAL DAILY 30 2019 Active to be started AFTER 400mg load completes Amlodipine 5 MG ORAL DAILY 30 2019 Active Acetazolamide Sodium 250 MG INTRAVEN DAILY 7 December 30, 2019 Active Docusate Sodium 100 MG ORAL Twice A Day 60 December 30, 2019 Active Budesonide 0.5 MG Via Nebulizer TWICE A DAY (RESP) 120 December 30, 2019 Active Diltiazem Hcl 90 MG ORAL Q6H 120 Ja nuary 2019 Active Chlorhexidine Gluconate 15 ML MOUTH TOPICAL 3 TIMES A DAY December 30, 2019 Active Sennosides 2 EACH ORAL AT BEDTIME 60 December 30, 2019 Active Prednisone 50 MG ORAL WITH BREAKFAS T 10 2 December 30, 2019 Active Please taper with 5 days of 25mg prednisone followed by return to [facility] 10mg daily prednisone Lorazepam 0.5 MG ORAL Q12H PRN For Anxiety 60 December 30, 2019 Active Metoprolol Tartrate 50 MG ORAL Q6H 120 December 30, 2019 Active Insulin Lispro 0 UNIT SUBCUTANEO US With Meals and at Bedtime 30 December 30, 2019 Active Sodium Chloride 2 SPRAY NASAL Q4H PRN For Dry Nasal Passages 10 December 30, 2019 Active Encounters Encounter Facility Location Admit/Visit Date Discharge/Departure Date Attending Provider Discharged Inpatient [facility] Critical Care Unit December 22, 2019 4:39pm December 30, 2019 9:29pm Benny Raymundo Registered Referred [facility] Internal Medicine December 21, 2019 11:15am Johnie Frazier Registered Referred [facility] Pulmonary November 30, 2019 4:10pm Johnie Frazier [facility] November 30, 2019 3:00pm Johnie Frazier Registered Referred [facility] Pulmonary August 24, 2019 8:00am Johnie Frazier Registered Physician/Pro vider Office Visit [facility] August 24, 2019 12:00am [id number], Registered Physician/Pro vider Office Visit [facility] August 23, 2019 12:00am [id number], Registered Physician/Pro vider Office Visit [facility] July 22, 2019 12:00am [id number], Registered Physician/Pro vider Office Visit [facility] July 21, 2019 12:00am [id number], Registered Physician/Pro vider Office Visit [facility] July 16, 2019 12:00am [id number], Registered Physician/Pro vider Office Visit [facility] July 10, 2019 12:00am [id number], Registered Physician/Pro vider Office Visit [facility] July 09, 2019 12:00am [id number], Registered Physician/Pro vider Office Visit [facility] June 20, 2019 12:00am [id number], Registered Physician/Pro vider Office Visit [facility] May 24, 2019 12:00am [id number], Registered Referred [facility] Pulmonary April 13, 2019 8:15am Johnie Frazier Registered Physician/Pro vider Office Visit [facility] April 13, 2019 12:00am [id number], Registered Physician/Pro vider Office Visit [facility] April 12, 2019 12:00am [id number], Registered Physician/Pro vider Office Visit [facility] April 07, 2019 12:00am [id number], Registered Physician/Pro vider Office Visit [facility] March 26, 2019 12:00am [id number], Registered Physician/Pro vider Office Visit [facility] March 18, 2019 12:00am [id number], Registered Physician/Pro vider Office Visit [facility] March 11, 2019 12:00am [id number], Registered Physician/Pro vider Office Visit [facility] January 07, 2019 12:00am [id number], Registered Physician/Pro vider Office Visit [facility] January 05, 2019 12:00am [id number], Registered Physician/Pro vider Office Visit [facility] January 04, 2019 12:00am [id number], Encounter Diagnosis Onset Date Acute and chronic respiratory failure Acute exacerbation of chronic obstructiv e pulmonary disease Acute respiratory acidosis Functional Status Query Response Date Recorded Comment Comprehension Ability Understands Concepts December 30, 2019 10:23am Query Response Date Recorded Comment Physical Dependency Level Independent December 30 0 12:09pm Immunizations No known immunizations. Payers Payer Name Policy Type Covered Alliance Party Covered Alliance Party Id Relationship Subscriber Subscriber Id MARGA Encarnacion [id number] Spouse Lissy Encarnacion [id number] BLUE CROSS OUT OF STATE PLAN Commerical Mario Dolan [id number] Self / Same As Patient Mario Dolan [id number] [employer]UE [employer] PPO Commerical Lissy Encarnacion [id number] Spouse Lissy Encarnacion [id number] SELF PAY Personal Payment (Anders - No Insurance) Plan of Care No Known Plan of Care Information Social History Query Response Date Recorded Comment Smoking Status Former smoker December 30, 2019 4:14pm Query Response Start Date Stop Date Smoking Status Former smoker Vital Signs Vital Reading Result Reference Range Collection Date/Time Height 5 ft 11 in December 29 0 6:00am Weight 157.3 kg December 29 0 6:00am Temperature 97.6 F 96.5 F-101.5 F December 30 020 7:22pm Pulse 82 BPM 50-110 December 30 0 7:22pm Respiration 21 RPM 12-20 December 30 0 7:22pm Pulse Oximetry 96 % 95-100 December 30 020 7:22pm Blood Pressure Systolic 120 100-180 Dylan chu2019 7:22pm Blood Pressure Diastolic 66 70-85 Andreas uary 2019 7:22pm Body Mass Index 48.3 December 29, 2019 6:00am
--- OUTSIDE RECORDS SUMMARY | 2024-01-12 17:47 | XMS_ITS | Continuity of Care Document ---
Author Name [address] [address] Support Name Relationship Address Phone Rachel Hidalgo Primary Care Provider [address] [place] [address] DdLexie nuñez Admit Provider [address] [place] [address] Jonah Prakash Attending Provider [address] [place] [address] Tre Randhawa Other Provider [facility] [address] [place] [address] Jonathan Mi Other Provider [facility] [address] [place] [address] Waqas Gautam Emergency Provider [facility] [address] [address] Rachel Hidalgo Primary Care Provider [address] [place] [address] Mary Ellen Sandoval Emergency Provider [address] [place] [address] DdLexie nuñez Admit Provider [address] [place] [address] Jonah Prakash Other Provider [address] [place] [address] Elvin Hansen Attending Provider [address] [place] [address] Allergies, Adverse Reactions, Alerts No known allergies. [...] A Day 16 January 22, 2022 Active Jean-3 Fatty Acids [Fish Oil Concentrate] 1000 MG [...] ORAL Daily January 09, 2021 Active Tiotropium [place] [Spiriva Respimat] 2 PUFF INHALATION Every Morning [...] 2019 December 30, 2019 Disconti nued Tiotropium [place] [Spiriva With Handihaler] 18 MCG INHALAT ION [...] of 25mg prednisone followed by return to [facility] 10mg daily prednisone Lorazepam 0.5 MG [...] January 29, 2020 Disconti nued Fluarix Quad [id number] (PF) (flu vacc [id number] 6mos up(PF)) 60 mcg (15 mcg x [...] Disconti nued Fluarix Quad (PF) (flu vacc [id number] 6mos up(PF)) 60 mcg (15 mcg x 4)/0.5 mL IM syringe 0.5 ML INTRAMU SC Once 0.5 [facility] er 2020August 28, 2021 [...] Amplification (KIARA) Rapid Molecular test. Performed on [employer] This test has been authorized by [...] Health Care Proxy Name luis manuel hairston [id number] [phone] January 20, 2022 7:51pm MOLST Form [...] 7-10) December 22, 2019 Discontinu ed Tiotropium [place] 18 MCG INHALATION Daily December 22, 2019 [...] 2022 Active Fluarix Quad (PF) (flu vacc [id number] 6mos up(PF)) 60 mcg (15 mcg x 0.5 ML INTRAMUSC Once 0.5 August 29, 2020 Discontinu ed Jean-3 Fatty Acids 1000 MG ORAL Daily August [...] Discontinu ed Fluarix Quad (PF) (flu vacc [id number] 6mos up(PF)) 60 mcg (15 mcg x 0.5 ML INTRAMUSC Once 0.5 August 28, 2021 Discontinu ed Tiotropium [place] 2 PUFF INHALATION Every Morning 3 September 08, 2021 Active pneumococcal 23-maría ps vaccine 25 mcg/0.5 mL injection syringe 0.5 ML INTRAMUSC Once 0.5 December 25, 2021 Discontinu ed Methimazole 5 MG ORAL Daily 2021 Active Encounters Encounter Facility Location Admit/Visit Date Discharge/Departure Date Attending Provider Registered Inpatient [facility] Hospitalist January 22, 2022 11:29am Lexie Morris Registered Inpatient [facility] Hospitalist January 21, 2022 11:31am Lexie Morris Registered Inpatient [facility] Hospitalist January 20, 2022 4:55pm Lexie Morris Registered Inpatient [facility] Cardiology January 20, 2022 4:54pm Elvin Hansen Departed Physician/Pro vider Office Visit [facility] Pulmonology December 25, 2021 3:14pm December 25, 2021 3:48pm Johnie Frazier Departed Physician/Pro vider Office Visit [facility] Pulmonology August 28, 2021 3:17pm August 28, 2021 3:42pm Johnie Frazier Departed Physician/Pro vider Office Visit [facility] Pulmonology May 22, 2021 2:47pm May 22, 2021 3:19pm Johnie Frazier Departed Physician/Pro vider Office Visit [facility] Pulmonology May 16, 2021 3:11pm May 16, 2021 11:59pm Johnie Frazier Departed Physician/Pro vider Office Visit [facility] Pulmonology February 27, 2021 7:57am February [...]
--- OUTSIDE RECORDS SUMMARY | 2024-01-12 17:47 | XMS_ITS | Continuity of Care Document ---
Author Name [facility] Address [address] [place] [id number] Organization [facility] Address [address] [place] [address] Support Name Relationship Address Phone 0 Attending [...] For Cough December 22, 2019 Active Tiotropium [place] [Spiriva With Handihaler] 18 MCG INHALATION Daily [...] December 26, 2019 6:31pm Clear Urine Specific [place] December 26, 2019 6:31pm 1.033 1.001-1.0 35 [...] 20-31 CRITICAL VALUE REPORTED AND READ BACK [id number] Plasma Carbon Dioxide December 22, 2019 2:14pm > 40 MMOL/L High 21-32 CRITICAL VALUE REPORTED AND READ BACK [id number] Anion Gap December 30, 2019 5:15pm [...] 5:15pm 2.9 MG/DL 2.4-5.1 Note: New refere iae range and method effective 07/13/2019. B-Type Natriuretic [...] >or=1.0 AI: Antibody Detected Autoantibodies to proteinase-3 (MN-3) are accepted as characteristic for granulomatosis with polyangiitis (GPA, Gera's), and are detectabale in 95% of the histologically proven cases. The cytoplasmic IFA pattern, (c-ANCA), is based largely on autoantibody to MN-3 which serves as the primary antigen. These autoantibodies are present in active disease. THIS TEST WAS PERFORMED AT: [facility] [address] [address] Jose Cooper M.D., Ph.D.,Director of Laboratories Myeloperoxidase [...] 7-10) December 22, 2019 Discontinue d Tiotropium [place] 18 MCG INHALATION Daily December 22, 2019 [...] Provider Registered Physician/Pro vider Office Visit [facility] May 18, 2020 12:00am 0, Registered Referred [facility] Jason Valentino. Internal Medicine May 11, 2020 8:00am Johnie Frazier Registered Physician/Pro vider Office Visit [facility] May 11, 2020 12:00am 0, Registered Physician/Pro vider Office Visit [facility] May 10, 2020 12:00am 0, Registered Physician/Pro vider Office Visit [facility] May 08, 2020 12:00am 0, Registered Physician/Pro vider Office Visit [facility] March 31, 2020 12:00am 0, Registered Referred [facility] Jason Valentino. Internal Medicine March 30, 2020 2:00pm Johnie Frazier Registered Physician/Pro vider Office Visit [facility] March 30, 2020 12:00am 0, Registered Physician/Pro vider Office Visit [facility] March 23, 2020 12:00am 0, Registered Physician/Pro vider Office Visit [facility] March 16, 2020 12:00am 0, Registered Physician/Pro vider Office Visit [facility] March 14, 2020 12:00am 0, [facility] [address] Internal Medicine February 29, 2020 2:30pm Johnie Frazier Registered Physician/Pro vider Office Visit [facility] February 29, 2020 12:00am 0, Registered Physician/Pro vider Office Visit [facility] February 17, 2020 12:00am [id number], Registered Physician/Pro vider Office Visit [facility] February 03, 2020 12:00am 0, Registered Physician/Pro vider Office Visit [facility] February 01, 2020 12:00am 0, Registered Referred [facility] [address] Internal Medicine January 27, 2020 10:30am Johnie Frazier Registered Physician/Pro vider Office Visit [facility] January 27, 2020 12:00am 0, Registered Referred [facility] January 25, 2020 4:35pm Johnie Frazier Registered Physician/Pro vider Office Visit [facility] January 25, 2020 12:00am 0, Registered Physician/Pro vider Office Visit [facility] January 21, 2020 12:00am 0, Registered Physician/Pro vider Office Visit [facility] January 20, 2020 12:00am 0, Registered Physician/Pro vider Office Visit [facility] January 17, 2020 12:00am 0, Registered Referred [facility] [address] Internal Medicine January 13, 2020 [...] December 23, 2019 12:00am 0, Discharged Inpatient [facility] December 22, 2019 4:39pm December 30, 2019 9:29pm Benny Raymundo Registered Physician/Pro vider Office Visit [facility] December 22, 2019 12:00am 0, Registered Referred [facility] Internal Medicine December 21, 2019 [...] December 07, 2019 12:00am 0, Registered Referred [facility] Pul[facility] November 30, 2019 4:10pm Johnie Frazier Registered Referred [facility] [address] Internal Medicine November 30, 2019 [...]
--- OUTSIDE RECORDS SUMMARY | 2024-01-12 17:47 | XMS_ITS | Patient Health Record ---
Author Name Unknown [facility] Address [address] [place] [address] Care Team Providers Care Manager Freelance Name Role Phone Alea Hull MD Primary Care Provider Lillian Novoa Unavailable [phone] ALLERGIES No Known Allergies REASON FOR REFERRAL No Information MEDICATIONS Medication SIG (Take, Route, Frequency, Duration) Notes Start Date End Date Status Roflumilast 500 MCG 1 tablet Orally Once a day Active Azelastine HCl Unkno wn Symbicort 160-4.5 MCG/ACT 2 puffs Inhala tion Twice a day Unknown Metoprolol Succinate ER 100 MG 1 tablet Orally Once a day Active Albuterol Sulfate 108 (90 Base) MCG/ACT 1 puff as needed Inhalation every 4 hrs Unknown Multivitamin Active Albuterol Sulfate 2.5 MG/0.5ML as directed Inhalation Unkno wn Furosemide 40 MG 1 tablet Orally Once a day Active Omeprazole Magnesium 20 MG 1 tablet 30 m inutes before morning meal Orally Once a day Unknown methIMAzole 2.5 mg Active Spiriva Respimat 2.5 MCG/ACT 2 puffs Inhalation Once a day Unknown Multaq 400 MG 1 tablet with meals Orally Twice a day Active Vitamin D3 25 MCG (1000 UT) 1 capsule Or ally Once a day Active dilTIAZem HCl ER 240 MG 1 tablet Orally Once a day Active [place] 3 1000 MG 1 capsule Orally Onc e a day Unknown Fish Oil Active Acetaminophen Active Probiotic Active Eliquis 5 MG 1 tablet Orally Twic e a day Active Vitamin B1 Active Vitamin E 268 MG (400 UNIT) 1 capsule Or ally Once a day Active Dronedarone HCl 400 MG 1 tablet with poonam ls Orally Twice a day Unknown SOCIAL HISTORY Tobacco Use: Social History Observation Description Date Details (start date - stop date) Former Smoker NA - NA Sex Assigned At : Social History Observation Description Sex Assigned At Unknown Tobacco Use/Smoking Question Answer Notes Are you a: former smoker Additional Findings: Tobacco Non-User Current no n-smoker Alcohol Screen Question Answer Notes Did you have a drink containing alcohol in the p ast year? Yes Points 0 Interpretation Negative Tobacco use other than smoking: Question Answer Notes Are you an other tobacco user? No PROBLEMS Problem Type ICD Code Onset Dates Problem Status W/U Status Risk SNOMED Code Notes Problem Plantar wart (B07.0) Active confirmed Plantar wart (28592874) VITAL SIGNS Height 5 ft 11 in in 11/21/2023 Weight as per SAFETY DEPOSIT CLERK ppwk - 320 Weight 320 lbs 11/21/2023 Weight as per N P ppwk - 320 BMI 44.63 kg/m2 11/21/2023 Weight as per N P ppwk - 320 Encounters Encounter Location Date Provider Diagnosis [facility] [address] [address] 10/31/2023 Lillian Matias [facility] [address] 11/21/2023 Lillian Matias Right foot pain M79.671 ; Plantar wart B07.0 ; Ingrown nail L60.0 and Dystrophic nail L60.[address] [address] 11/21/2023 Lillian Matias [facility] [address] 01/01/2024 [facility] [address] 01/02/2024 Lillian Matias ASSESSMENTS Encounter Date Diagnosis Assessment Notes Treatment Notes Treatment Clinical Notes 11/21/2023 Plantar wart (ICD-10 - B07.0) 11/21/2023 Right foot pain (ICD-10 - M79.671) 11/21/2023 Ingrown nail (ICD-10 - L60.0) 11/21/2023 Dystrophic nail (ICD-10 - L60.3) PLAN OF TREATMENT Next Appt Details Provider Name:Lillian Waters Meghan waters, 01/28/2024 09:00:00 AM, [address] [facility], [place], [address], Insurance Providers Payer Name Payer Address Payer Phone Subscriber Number Group Number Insured Name Patient Relationship to Insured Coverage Start Date Coverage End Date [facility] [address] [place] [address] [phone] [id number] Lissy Bill Spouse - patient is the spouse of the insured MEDICAL (GENERAL) HISTORY Medical History History ICD Code COPD Chronic diastolic heart failure Hyperthyroidism Venous insufficiency of both lower extre mities Pulmonary embolism Acute exacerbation of chronic obstructiv e airways disease Chronic respiratory failure Paroxysmal atrial flutter Lung mass Heart disease High blood pressure Lung disease Measles Mumps Chicken pox A fib Surgical History Surgery Date(Month/Year) cardiac radiofrequency ablasion Hospitalization History Reason Date(Month/Year) [facility] copd 10/2023
--- OUTSIDE RECORDS SUMMARY | 2024-01-12 17:48 | XMS_ITS | Continuity of Care Document ---
Author Name [facility] Address [address] [place] [address] Organization [facility] Address [address] [place] [address] Support Name Relationship Address Phone 0 Attending [...] For Cough December 22, 2019 Active Tiotropium [place] [Spiriva With Handihaler] 18 MCG INHALATION Daily [...] December 26, 2019 6:31pm Clear Urine Specific [place] December 26, 2019 6:31pm 1.033 1.001-1.0 35 [...] 20-31 CRITICAL VALUE REPORTED AND READ BACK [id number] Plasma Carbon Dioxide December 22, 2019 2:14pm > 40 MMOL/L High 21-32 CRITICAL VALUE REPORTED AND READ BACK [id number] 1516 Anion Gap December 30, 2019 5:15pm [...] 5:15pm 2.9 MG/DL 2.4-5.1 Note: New refere mte range and method effective 07/13/2019. B-Type Natriuretic [...] >or=1.0 AI: Antibody Detected Autoantibodies to proteinase-3 (AZ-3) are accepted as characteristic for granulomatosis with polyangiitis (GPA, Gera's), and are detectabale in 95% of the histologically proven cases. The cytoplasmic IFA pattern, (c-ANCA), is based largely on autoantibody to AZ-3 which serves as the primary antigen. These autoantibodies are present in active disease. THIS TEST WAS PERFORMED AT: [facility] [address] [address] Jose Cooper M.D., Ph.D.,Director of Laboratories Myeloperoxidase [...] 7-10) December 22, 2019 Discontinue d Tiotropium [place] 18 MCG INHALATION Daily December 22, 2019 [...] Attending Provider Registered Physician/Pro vider Office Visit [facility] May 18, 2020 12:00am 0, Registered Referred [facility] Jason Valentino. Internal Medicine May 11, 2020 8:00am Johnie Frazier Registered Physician/Pro vider Office Visit [facility] May 11, 2020 12:00am 0, Registered Physician/Pro vider Office Visit [facility] May 10, 2020 12:00am 0, Registered Physician/Pro vider Office Visit [facility] May 08, 2020 12:00am 0, Registered Physician/Pro vider Office Visit [facility] March 31, 2020 12:00am 0, Registered Referred [facility] Jason Valentino. Internal Medicine March 30, 2020 2:00pm Johnie Frazier Registered Physician/Pro vider Office Visit [facility] March 30, 2020 12:00am 0, Registered Physician/Pro vider Office Visit [facility] March 23, 2020 12:00am 0, Registered Physician/Pro vider Office Visit [facility] March 16, 2020 12:00am 0, Registered Physician/Pro vider Office Visit [facility] March 14, 2020 12:00am 0, [facility] [address] [facility] February 29, 2020 2:30pm Johnie Fraizer Registered Physician/Pro vider Office Visit [facility] February 29, 2020 12:00am 0, Registered Physician/Pro vider Office Visit [facility] February 17, 2020 12:00am [id number], Registered Physician/Pro vider Office Visit [facility] February 03, 2020 12:00am 0, Registered Physician/Pro vider Office Visit [facility] February 01, 2020 12:00am 0, Registered Referred [facility] [address] Internal Medicine January 27, 2020 10:30am Johnie Frazier Registered Physician/Pro vider Office Visit [facility] January 27, 2020 12:00am 0, Registered Referred [facility] January 25, 2020 4:35pm Johnie Frazier Registered Physician/Pro vider Office Visit [facility] January 25, 2020 12:00am 0, Registered Physician/Pro vider Office Visit [facility] January 21, 2020 12:00am 0, Registered Physician/Pro vider Office Visit [facility] January 20, 2020 12:00am 0, Registered Physician/Pro vider Office Visit [facility] January 17, 2020 12:00am 0, Registered Referred [facility] [address] Internal Medicine January 13, 2020 [...] December 23, 2019 12:00am 0, Discharged Inpatient [facility] December 22, 2019 4:39pm December 30, 2019 9:29pm Benny Raymundo Registered Physician/Pro vider Office Visit [facility] December 22, 2019 12:00am 0, Registered Referred [facility] [address] Internal Medicine December 21, 2019 [...] December 07, 2019 12:00am 0, Registered Referred [facility] Pul[facility] November 30, 2019 4:10pm Johnie Frazier Registered Referred [facility] [address] Internal Medicine November 30, 2019 [...]
--- OUTSIDE RECORDS SUMMARY | 2024-01-12 17:48 | XMS_ITS | Continuity of Care Document ---
Author Name [facility] Address [address] [place] [address] Organization [facility] Address [address] [place] [address] Support Name Relationship Address Phone Rachel Hidalgo Primary Care Provider [address] [place] [address] MansfieldMary Ellen Emergency Provider [address] [place] [address] DdLexie nuñez Admit Provider [address] [place] [address] Jonah Prakash Attending Provider [address] [place] [address] Tre Randhawa Other Provider [facility] [address] [place] [address] Jonathan Mi Other Provider [facility] [address] [place] [address] Rachel Hidalgo Primary Care Provider [address] [place] [address] Mary Ellen Sandoval Emergency Provider [address] [place] [address] Lexie Morris Admit Provider [address] [place] [address] Jonah Prakash Other Provider [address] [place] [address] Elvin Hansen Attending Provider [address] [place] [address] Allergies, Adverse Reactions, Alerts No known allergies. [...] A Day 16 January 22, 2022 Active [place]-3 Fatty Acids [Fish Oil Concentrate] 1000 MG [...] ORAL Daily January 09, 2021 Active Tiotropium [place] [Spiriva Respimat] 2 PUFF INHALATION Every Morning [...] 2019 December 30, 2019 Disconti nued Tiotropium [place] [Spiriva With Handihaler] 18 MCG INHALAT ION [...] January 29, 2020 Disconti nued Fluarix Quad [id number] (PF) (flu vacc [id number] 6mos up(PF)) 60 mcg (15 mcg x [...] Disconti nued Fluarix Quad (PF) (flu vacc [id number] 6mos up(PF)) 60 mcg (15 mcg x 4)/0.5 mL IM syringe 0.5 ML INTRAMU SC Once 0.5 Septemb er 2020August 28, 2021 Disconti nued pneumococcal [...] Amplification (KIARA) Rapid Molecular test. Performed on [employer] [facility] This test has been authorized by the FDA under an Emergency Use Authorization (EAU) for use by authorized laboratories. Advance Directives Advance Directive Response Recorded Date/ Time Do you have a Health Care Proxy Declined January 20, 2022 7:51pm Health Care Proxy Name luis manuel hairston [id number] January 20, 2022 7:51pm MOLST Form Reviewed/Complete d With Patient No January 20, 2022 7:51pm Chief Complaint and Reason for Visit Encounter Admit Date Chief Complaint Reason for V isit Registered Inpatient January 20, 2022 4:54pm CELLULITIS, SUPERFICIAL THROMBOPLEBITIS Atrial flutter Cellulitis COPD exacerbation Superficial thrombophlebitis Obstructive sleep apnea syndrome, severe Hospital Discharge Instructions Query Response Comment Date/Time [...] 7-10) December 22, 2019 Discontinu ed Tiotropium [place] 18 MCG INHALATION Daily December 22, 2019 [...] 0800,160 0 240 30 December 30, 2019 Discontinu ed Ipratropium-Alb uterol [...] A Day 60 30 December 30, 2019 Discontinu ed Budesonide 0.5 MG Via Nebulizer TWICE A DAY (RESP) 120 30 December 30, 2019 Discontinu ed Diltiazem Hcl [...] Cholecalciferol (Vitamin D3) 25 MCG ORAL Daily 2021 Active Multivitamin TAB Daily Jan ru2021 Active Doxycycline Hyclate 100 MG ORAL Twice A Day January 22, 2022 Active Fluarix Quad (PF) (flu vacc [id number] 6mos up(PF)) 60 mcg (15 mcg x 0.5 ML INTRAMUSC Once 0.5 August 29, 2020 Discontinu ed [place]-3 Fatty Acids 1000 MG ORAL Daily August 29, 2020 Active Roflumilast 500 MCG ORAL Daily 90 Aug emb2019 Discontinu ed Fluticasone Propionate 1 SPRAY NASAL Twice A Day January 08, 2021 Active Furosemide 40 MG ORAL Twice A Day January 08, 2021 Active Metoprolol Succinate TAB ORAL January 08, 2021 Discontinu ed Amiodarone 200 MG ORAL Daily chu2020 Active Diltiazem Hcl 240 MG ORAL [...] Discontinu ed Fluarix Quad (PF) (flu vacc [id number] 6mos up(PF)) 60 mcg (15 mcg x 0.5 ML INTRAMUSC Once 0.5 August 28, 2021 Discontinu ed Tiotropium [place] 2 PUFF INHALATION Every Morning 3 September 08, 2021 Active pneumococcal 23-maría ps vaccine 25 mcg/0.5 mL injection syringe 0.5 ML INTRAMUSC Once 0.5 December 25, 2021 Discontinu ed Methimazole 5 MG ORAL Daily 2021 Active Encounters Encounter Facility Location Admit/Visit Date Discharge/Departure Date Attending Provider Registered Inpatient [facility] Cardiology January 20, 2022 4:54pm Elvin Hansen Departed Physician/Pro vider Office Visit [facility] Pulmonology December 25, 2021 3:14pm December 25, 2021 3:48pm Johnie Frazier Departed Physician/Pro vider Office Visit [facility] Pulmonology August 28, 2021 3:17pm August 28, 2021 3:42pm Johnie Frazier Departed Physician/Pro vider Office Visit [facility] Pulmonology May 22, 2021 2:47pm May 22, 2021 3:19pm Johnie Frazier Departed Physician/Pro vider Office Visit [facility] Pulmonology May 16, 2021 3:11pm May 16, 2021 11:59pm Johnie Frazier Departed Physician/Pro vider Office Visit [facility] Pulmonology February 27, 2021 7:57am February 27, 2021 1:38pm Johnie Frazier Encounter Diagnosis Onset Date Atrial flutter Cellulitis COPD exacerbation Superficial thrombophlebitis Obstructive sleep apnea syndrome, severe Functional Status Query Response Date Recorded Comment Comprehension Ability Understands Concepts January 2:20pm Query Response Date Recorded Comment Physical Dependency Level Independent January 22 2:20pm Immunizations Immunization Name Date Given Type COVID-19, Moderna January 26, 2021 Historical COVID-19, Moderna October 06, 2021 Historical influenza, injectable, quadrivalent, pf Septembe r 2020 Administered Pneumococcal Polysacc. Vaccine, 23 valent 2021 Administered Influenza vaccine, quadrivalent, adjuvanted Sept 2019 Administered tetanus and diphth toxoids, adsorbed, adult Dylan 2021 Historical Plan of Care Instructions Cellulitis [...] 8:00am Blood Pressure Systolic 131 100-180 Febr [facility] 2021 8:00am Blood Pressure Diastolic 81 70-85 [facility] 2021 8:00am Body Mass Index 43.9 January 21, 2022 3:56am
--- OUTSIDE RECORDS SUMMARY | 2024-01-12 17:48 | XMS_ITS | Continuity of Care Document ---
Author Name [facility] Address [address] [place] [address] Organization [facility] Address [address] [place] [address] Support Name Relationship Address Phone Gwen Rachel Primary Care Provider 1 [facility] [address] [place], [place] [id number] Mary Ellen Sandoval Emergency Provider [address] [place] [address] Lexie Morris Admit Provider [address] [place] [address] Jonah Prakash Attending Provider [address] [place] [address] Allergies, Adverse Reactions, Alerts No known allergies. [...] Multivitamin TAB Daily Feb ruary 2021 Active [place]-3 Fatty Acids [Fish Oil Concentrate] 1000 MG [...] ORAL Daily January 09, 2021 Active Tiotropium [place] [Spiriva Respimat] 2 PUFF INHALATION Every Morning [...] 2019 December 30, 2019 Disconti nued Tiotropium [place] [Spiriva With Handihaler] 18 MCG INHALAT ION [...] 3 Times A Day December 30, 2019 January 29, 2020 Disconti nued Sennosides [Senna Lax] 2 EACH ORAL At Bedti me 60 December 30, 2019 January 29, 2020 Disconti nued Prednisone 50 MG ORAL WITH BREAK FAST 10 2 December 30, 2019 January 01, 2020 Disconti nued Please taper with 5 days of 25mg prednisone followed by return to [facility] 10mg daily prednisone Lorazepam 0.5 MG ORAL [...] January 29, 2020 Disconti nued Fluarix Quad 0339-8412 (PF) (flu vacc [id number] 6mos up(PF)) 60 mcg (15 mcg x 4)/0.5 mL IM syringe 0.5 ML INTRAMU SC Once 0.5 Septemb er 2019August 29, 2020 Disconti nued Roflumilast [Daliresp] 500 MCG ORAL Daily 90 Septemb er 2019August 06, 2021 Disconti nued Metoprolol Succinate TAB ORAL Februar y 2020January 09, 2021 Disconti nued Prednisone 0 ORAL .COMP SANDER 20 May 16, 2021 May 24, 2021 Disconti nued 40mg po qAM x2days, 30 mg x2days,20 mg x2days,then 10mg x2 days, then off. Azithromycin 500 MG ORAL Daily 5 5 MayMay 21, 2021 Disconti nued Fluarix Quad (PF) (flu vacc [id number] 6mos up(PF)) 60 mcg (15 mcg x 4)/0.5 mL IM syringe 0.5 ML INTRAMU SC Once 0.5 Septemb er 28, 2021 August 28, 2021 Disconti nued pneumococcal 23-maría ps [...] Amplification (KIARA) Rapid Molecular test. Performed on [employer] Now This test has been authorized by the FDA under an Emergency Use Authorization (EAU) for use by authorized laboratories. Advance Directives Advance Directive Response Recorded Date/ Time Do you have a Health Care Proxy Declined January 20, 2022 7:51pm Health Care Proxy Name luis manuel hairston [id number] January 20, 2022 7:51pm MOLST Form [...] 7-10) December 22, 2019 Discontinu ed Tiotropium [place] 18 MCG INHALATION Daily December 22, 2019 [...] Active Multivitamin TAB Daily Jan ru2021 Active Fluarix Quad (PF) (flu vacc [id number] 6mos up(PF)) 60 mcg (15 mcg x 0.5 ML INTRAMUSC Once 0.5 August 29, 2020 Discontinu ed [place]-3 Fatty Acids 1000 MG ORAL Daily August 29, 2020 Active Roflumilast 500 MCG ORAL Daily 90 Sept ember 2019 Discontinu ed Fluticasone Propionate 1 SPRAY NASAL Twice A Day January 08, 2021 Active Furosemide 40 MG ORAL Twice A Day January 08, 2021 Active Metoprolol Succinate TAB ORAL January 08, 2021 Discontinu ed Amiodarone 200 MG ORAL Daily Febru chu 2020 Active Diltiazem Hcl 240 MG ORAL Daily Fe bruary 2020 Active Metoprolol Succinate 100 MG ORAL Daily January 09, 2021 Active Prednisone 0 ORAL .COMPLEX 20 8 May 16, 2021 Discontinu ed 40mg po qAM x2days, 30 mg x2days,20 mg x2days,then 10mg x2 days, then off. Azithromycin 500 MG ORAL Daily 5 5 Ross e 2020 Discontinu ed Fluarix Quad [id number] (PF) (flu vacc [id number] 6mos up(PF)) 60 mcg (15 mcg x 0.5 ML INTRAMUSC Once 0.5 August 28, 2021 Discontinu ed Tiotropium [place] 2 PUFF INHALATION Every Morning September 08, 2021 Active pneumococcal 23-maría ps vaccine 25 mcg/0.5 mL injection syringe 0.5 ML INTRAMUSC Once 0.5 December 25, 2021 Discontinu ed Methimazole 5 MG ORAL Daily Dylan 2021 Active Encounters Encounter Facility Location Admit/Visit Date Discharge/Departure Date Attending Provider Admitted Inpatient [place] [address] Unit January 20, 2022 4:54pm Jonah Prakash Departed Physician/Pr ovider Office Visit [facility] Pulmonology December 25, 2021 3:14pm December 25, 2021 3:48pm Johnie Frazier Departed Physician/Pr ovider Office Visit [facility] Pulmonology August 28, 2021 3:17pm August 28, 2021 3:42pm Johnie Frazier Departed Physician/Pr ovider Office Visit [facility] Pulmonology May 22, 2021 2:47pm May 22, 2021 3:19pm Johnie Frazier Departed Physician/Pr ovider Office Visit [facility] Pulmonology May 16, 2021 3:11pm May 16, 2021 11:59pm Johnie Frazier Departed Physician/Pr ovider Office Visit [facility] Pulmonology February 27, 2021 7:57am February 27, 2021 1:38pm Johnie Frazier Encounter Diagnosis Onset Date Atrial flutter Cellulitis COPD exacerbation Superficial thrombophlebitis Obstructive sleep apnea syndrome, severe Functional Status Query Response Date Recorded Comment Comprehension Ability Understands Concepts January 7:51pm Query Response Date Recorded Comment Physical Dependency Level Independent January 20 7:51pm Immunizations Immunization Name Date Given Type COVID-19, Moderna January 26, 2021 Historical COVID-19, Moderna October 06, 2021 Historical influenza, injectable, quadrivalent, pf Septembe r 2020 Administered Pneumococcal Polysacc. Vaccine, 23 valent Januar y 2021 Administered Influenza vaccine, quadrivalent, adjuvanted Sept emb2019 Administered tetanus and diphth toxoids, adsorbed, adult Dylan chu2021 Historical Plan of Care No Known Plan of Care Information Social History Query Response Start Date Stop Date Smoking Status Former smoker Vital Signs Vital Reading Result Reference Range Collection Date/Time Height 5 ft 11 in January 20 7:51pm Weight 142.882 kg January 20 7:51pm Temperature 98.5 F 96.8 F-100.4 F January 20, 2022 7:51pm Pulse 66 BPM 50-90 January 20 7:51pm Respiration 18 RPM -January 20 7:51pm Pulse Oximetry 96 % 95-100 January 20, 2022 7:51pm Blood Pressure Systolic 127 100-180 Febr ua 2021 7:51pm Blood Pressure Diastolic 70 70-85 Feb ruary 2021 7:51pm Body Mass Index 43.9 January 20, 2022 7:51pm
--- OUTSIDE RECORDS SUMMARY | 2024-01-12 17:48 | XMS_ITS | Continuity of Care Document ---
Author Name [facility] Address [address] [place] [id number] Organization [facility] Address [address] [place] [address] Support Name Relationship Address Phone 0 Attending [...] For Cough December 22, 2019 Active Tiotropium [place] [Spiriva With Handihaler] 18 MCG INHALATION Daily [...] December 26, 2019 6:31pm Clear Urine Specific Carpenter December 26, 2019 6:31pm 1.033 1.001-1.0 35 [...] 20-31 CRITICAL VALUE REPORTED AND READ BACK [id number] Plasma Carbon Dioxide December 22, 2019 2:14pm > 40 MMOL/L High 21-32 CRITICAL VALUE REPORTED AND READ BACK [id number] Anion Gap December 30, 2019 5:15pm [...] 5:15pm 2.9 MG/DL 2.4-5.1 Note: New refere rie range and method effective 07/13/2019. B-Type Natriuretic [...] >or=1.0 AI: Antibody Detected Autoantibodies to proteinase-3 (CA-3) are accepted as characteristic for granulomatosis with polyangiitis (GPA, Gera's), and are detectabale in 95% of the histologically proven cases. The cytoplasmic IFA pattern, (c-ANCA), is based largely on autoantibody to CA-3 which serves as the primary antigen. These autoantibodies are present in active disease. THIS TEST WAS PERFORMED AT: [facility] [address] [id number] Jose Cooper M.D., Ph.D.,Director of Laboratories Myeloperoxidase [...] 7-10) December 22, 2019 Discontinue d Tiotropium [place] 18 MCG INHALATION Daily December 22, 2019 [...] Attending Provider Registered Physician/Pro vider Office Visit [facility] May 18, 2020 12:00am 0, Registered Referred [facility] Jason Valentino. Internal Medicine May 11, 2020 8:00am Johnie Frazier Registered Physician/Pro vider Office Visit [facility] May 11, 2020 12:00am 0, Registered Physician/Pro vider Office Visit [facility] May 10, 2020 12:00am 0, Registered Physician/Pro vider Office Visit [facility] May 08, 2020 12:00am 0, Registered Physician/Pro vider Office Visit [facility] March 31, 2020 12:00am 0, Registered Referred [facility] Jason Valentino. Internal Medicine March 30, 2020 2:00pm Johnie Frazier Registered Physician/Pro vider Office Visit [facility] March 30, 2020 12:00am 0, Registered Physician/Pro vider Office Visit [facility] March 23, 2020 12:00am 0, Registered Physician/Pro vider Office Visit [facility] March 16, 2020 12:00am 0, Registered Physician/Pro vider Office Visit [facility] March 14, 2020 12:00am 0, Registered Referred [facility] [address] Internal Medicine February 29, 2020 2:30pm Johnie Frazier Registered Physician/Pro vider Office Visit [facility] February 29, 2020 12:00am 0, Registered Physician/Pro vider Office Visit [facility] February 17, 2020 12:00am [id number], Registered Physician/Pro vider Office Visit [facility] February 03, 2020 12:00am 0, Registered Physician/Pro vider Office Visit [facility] February 01, 2020 12:00am 0, Registered Referred [facility] [address] Internal Medicine January 27, 2020 10:30am Johnie Frazier Registered Physician/Pro vider Office Visit [facility] January 27, 2020 12:00am 0, Registered Referred [facility] January 25, 2020 4:35pm Johnie Frazier Registered Physician/Pro vider Office Visit [facility] January 25, 2020 12:00am 0, Registered Physician/Pro vider Office Visit [facility] January 21, 2020 12:00am 0, Registered Physician/Pro vider Office Visit [facility] January 20, 2020 12:00am 0, Registered Physician/Pro vider Office Visit [facility] January 17, 2020 12:00am 0, Registered Referred [facility] [address] Internal Medicine January 13, 2020 [...] December 23, 2019 12:00am 0, Discharged Inpatient [facility] December 22, 2019 4:39pm December 30, 2019 9:29pm Benny Raymundo Registered Physician/Pro vider Office Visit [facility] December 22, 2019 12:00am 0, Registered Referred [facility] [address] Internal Medicine December 21, 2019 [...] December 07, 2019 12:00am 0, Registered Referred [facility] Pulmonary November 30, 2019 4:10pm Johnie Frazier Registered Referred [facility] [address] Internal Medicine November 30, [...]
--- OUTSIDE RECORDS SUMMARY | 2024-01-12 17:48 | XMS_ITS | Continuity of Care Document ---
Author Name [address] [address] Support Name Relationship Address Phone Rachel Hidalgo Primary Care Provider [address] [place] [address] DdLexie nuñez Admit Provider [address] [place] [address] Jonah Prakash Attending Provider [address] [place] [address] Tre Randhawa Other Provider [facility] [address] [place] [address] Jonahtan Mi Other Provider [facility] [address] [place] [address] Waqas Gautam Emergency Provider [facility] [address] [address] Rachel Hidalgo Primary Care Provider [address] [place] [address] Mary Ellen Sandoval Emergency Provider [address] [place] [address] DdLexie nuñez Admit Provider [address] [place] [address] Jonah Prakash Other Provider [address] [place] [address] Elvin Hansen Attending Provider [address] [place] [address] Allergies, Adverse Reactions, Alerts No known allergies. [...] Day 16 January 22, 2022 Active [place]-3 Fatty Acids [Fish Oil Concentrate] 1000 MG [...] ORAL Daily January 09, 2021 Active Tiotropium [place] [Spiriva Respimat] 2 PUFF INHALATION Every Morning [...] 2019 December 30, 2019 Disconti nued Tiotropium [place] [Spiriva With Handihaler] 18 MCG INHALAT ION [...] of 25mg prednisone followed by return to [facility] 10mg daily prednisone Lorazepam 0.5 MG [...] January 29, 2020 Disconti nued Fluarix Quad 4229-8471 (PF) (flu vacc [id number] 6mos up(PF)) 60 mcg (15 mcg x [...] Disconti nued Fluarix Quad (PF) (flu vacc [id number] 6mos up(PF)) 60 mcg (15 mcg x 4)/0.5 mL IM syringe 0.5 ML INTRAMU SC Once 0.5 [facility] 2020August 28, 2021 Disconti nued pneumococcal [...] Amplification (KIARA) Rapid Molecular test. Performed on [employer] Now This test has been authorized by [...] Health Care Proxy Name luis manuel hairston [id number] January 20, 2022 7:51pm MOLST Form [...] 7-10) December 22, 2019 Discontinu ed Tiotropium [place] 18 MCG INHALATION Daily December 22, 2019 [...] 2022 Active Fluarix Quad (PF) (flu vacc ur3601-11 6mos up(PF)) 60 mcg (15 mcg x 0.5 ML INTRAMUSC Once 0.5 August 29, 2020 Discontinu ed [place]-3 Fatty Acids 1000 MG ORAL Daily August [...] Discontinu ed Fluarix Quad (PF) (flu vacc [id number] 6mos up(PF)) 60 mcg (15 mcg x 0.5 ML INTRAMUSC Once 0.5 August 28, 2021 Discontinu ed Tiotropium [place] 2 PUFF INHALATION Every Morning 3 September 08, 2021 Active pneumococcal 23-maría ps vaccine 25 mcg/0.5 mL injection syringe 0.5 ML INTRAMUSC Once 0.5 December 25, 2021 Discontinu ed Methimazole 5 MG ORAL Daily 2021 Active Encounters Encounter Facility Location Admit/Visit Date Discharge/Departure Date Attending Provider Registered Inpatient [facility] Hospitalist January 22, 2022 11:29am Lexie Morris Registered Inpatient [facility] Hospitalist January 21, 2022 11:31am Lexie Morris Registered Inpatient [facility] Hospitalist January 20, 2022 4:55pm Lexie Morris Registered Inpatient [facility] Cardiology January 20, 2022 4:54pm Elvin Hansen Departed Physician/Pro vider Office Visit [facility] Pulmonology December 25, 2021 3:14pm December 25, 2021 3:48pm Johnie Frazier Departed Physician/Pro vider Office Visit [facility] Pulmonology August 28, 2021 3:17pm August 28, 2021 3:42pm Johnie Frazier Departed Physician/Pro vider Office Visit [facility] Pulmonology May 22, 2021 2:47pm May 22, 2021 3:19pm Johnie Frazier Departed Physician/Pro vider Office Visit [facility] Pulmonology May 16, 2021 3:11pm May 16, 2021 11:59pm Johnie Frazier Departed Physician/Pro vider Office Visit [facility] Pulmonology February 27, 2021 7:57am February [...]
--- OUTSIDE RECORDS SUMMARY | 2024-01-12 17:48 | XMS_ITS | Continuity of Care Document ---
Author Name [address] [address] [address] [address] Support Name Relationship Address Phone Rachel Hidalgo Primary Care Provider [address] [place] [address] DdLexie nuñez Admit Provider [address] [place] [address] Jonah Prakash Attending Provider [address] [place] [address] Tre Randhawa Other Provider [facility] [address] [place] [address] Jonathan Mi Other Provider [facility] [address] [place] [address] Waqas Gautam Emergency Provider [facility] [address] [address] Rachel Hidalgo Primary Care Provider [address] [place] [address] Mary Ellen Sandoval Emergency Provider [address] [place] [address] DdLexie nuñez Admit Provider [address] [place] [address] Jonah Prakash Other Provider [address] [place] [address] Elvin Hansen Attending Provider [address] [place] [address] Allergies, Adverse Reactions, Alerts No known allergies. [...] A Day 16 January 22, 2022 Active [place]-3 Fatty Acids [Fish Oil Concentrate] 1000 MG [...] ORAL Daily January 09, 2021 Active Tiotropium [place] [Spiriva Respimat] 2 PUFF INHALATION Every Morning [...] 2019 December 30, 2019 Disconti nued Tiotropium [place] [Spiriva With Handihaler] 18 MCG INHALAT ION [...] of 25mg prednisone followed by return to [facility] 10mg daily prednisone Lorazepam 0.5 [...] January 29, 2020 Disconti nued Fluarix Quad 6142-0428 (PF) (flu vacc [id number] 6mos up(PF)) 60 mcg (15 mcg x [...] Disconti nued Fluarix Quad (PF) (flu vacc [id number] 6mos up(PF)) 60 mcg (15 mcg x 4)/0.5 mL IM syringe 0.5 ML INTRAMU SC Once 0.5 [facility] 2020August 28, 2021 Disconti nued pneumococcal [...] Amplification (KIARA) Rapid Molecular test. Performed on [employer] Now This test has been authorized [...] Health Care Proxy Name luis manuel hairston [id number] January 20, 2022 7:51pm MOLST Form [...] 7-10) December 22, 2019 Discontinu ed Tiotropium [place] 18 MCG INHALATION Daily December 22, 2019 [...] uar y 2021 Active Multivitamin TAB Daily b ruary 2021 Active Doxycycline Hyclate 100 MG ORAL Twice A Day January 22, 2022 Active Fluarix Quad (PF) (flu vacc [id number] 6mos up(PF)) 60 mcg (15 mcg x 0.5 ML INTRAMUSC Once 0.5 August 29, 2020 Discontinu ed [place]-3 Fatty Acids 1000 MG ORAL Daily August [...] Discontinu ed Fluarix Quad (PF) (flu vacc [id number] 6mos up(PF)) 60 mcg (15 mcg x 0.5 ML INTRAMUSC Once 0.5 August 28, 2021 Discontinu ed Tiotropium [place] 2 PUFF INHALATION Every Morning 3 September 08, 2021 Active pneumococcal 23-maría ps vaccine 25 mcg/0.5 mL injection syringe 0.5 ML INTRAMUSC Once 0.5 December 25, 2021 Discontinu ed Methimazole 5 MG ORAL Daily Dylan sage 2021 Active Encounters Encounter Facility Location Admit/Visit Date Discharge/Departure Date Attending Provider Registered Inpatient [facility] Hospitalist January 22, 2022 11:29am Lexie Morris Registered Inpatient [facility] Hospitalist January 21, 2022 11:31am Lexie Morris Registered Inpatient [facility] Hospitalist January 20, 2022 4:55pm Lexie Morris Registered Inpatient [facility] Cardiology January 20, 2022 4:54pm Elvin Hansen Departed Physician/Pro vider Office Visit [facility] Pulmonology December 25, 2021 3:14pm December 25, 2021 3:48pm Johnie Frazier Departed Physician/Pro vider Office Visit [facility] Pulmonology August 28, 2021 3:17pm August 28, 2021 3:42pm Johnie Frazier Departed Physician/Pro vider Office Visit [facility] Pulmonology May 22, 2021 2:47pm May 22, 2021 3:19pm Johnie Frazier Departed Physician/Pro vider Office Visit [facility] Pulmonology May 16, 2021 3:11pm May 16, 2021 11:59pm Johnie Frazier Departed Physician/Pro vider Office Visit [facility] Pulmonology February 27, 2021 7:57am February [...] 2020 Administered Pneumococcal Polysacc. Vaccine, 23 valent Sha tello 2021 Administered Influenza vaccine, quadrivalent, adjuvanted Sept [...]
--- OUTSIDE RECORDS SUMMARY | 2024-01-12 17:48 | XMS_ITS | Continuity of Care Document ---
Author Name [facility] Address [address] [place] [address] Organization [facility] Address [address] [place] [address] Support Name Relationship Address Phone Rachel Hidalgo Primary Care Provider [address] [place] [address] [place] Emergency Provider [address] [place] [address] DdLexie nuñez Admit Provider [address] [place] [address] Jonah Prakash Attending Provider [address] [place] [address] Tre Randhawa Other Provider [facility] [address] [place] [address] Jonathan Mi Other Provider [facility] [address] [place] [address] Rachel Hidalgo Primary Care Provider [address] [place] [address] Mary Ellen Sandoval Emergency Provider [address] [place] [address] Lexie Morris Admit Provider [address] [place] [address] Jonah Prakash Other Provider [address] [place] [address] Elvin Hansen Attending Provider [address] [place] [address] Allergies, Adverse Reactions, Alerts No known allergies. [...] A Day 16 January 22, 2022 Active [place]-3 Fatty Acids [Fish Oil Concentrate] 1000 MG [...] ORAL Daily January 09, 2021 Active Tiotropium [place] [Spiriva Respimat] 2 PUFF INHALATION Every Morning [...] 2019 December 30, 2019 Disconti nued Tiotropium [place] [Spiriva With Handihaler] 18 MCG INHALAT ION [...] January 29, 2020 Disconti nued Fluarix Quad 1258-0912 (PF) (flu vacc [id number] 6mos up(PF)) 60 mcg (15 mcg x [...] Disconti nued Fluarix Quad (PF) (flu vacc [id number] 6mos up(PF)) 60 mcg (15 mcg x 4)/0.5 mL IM syringe 0.5 ML INTRAMU SC [facility] 2020[facility] 28, 2021 Disconti nued pneumococcal [...] Amplification (KIARA) Rapid Molecular test. Performed on [employer] Now This test has been authorized by the FDA under an Emergency Use Authorization (EAU) for use by authorized laboratories. Advance Directives Advance Directive Response Recorded Date/ Time Do you have a Health Care Proxy Declined January 20, 2022 7:51pm Health Care Proxy Name luis manuel hairston [id number] January 20, 2022 7:51pm MOLST Form [...] 7-10) December 22, 2019 Discontinu ed Tiotropium [place] 18 MCG INHALATION Daily December 22, 2019 [...] 2022 Active Fluarix Quad (PF) (flu vacc [id number] 6mos up(PF)) 60 mcg (15 mcg x 0.5 ML INTRAMUSC Once 0.5 August 29, 2020 Discontinu ed [place]-3 Fatty Acids 1000 MG ORAL Daily August [...] Discontinu ed Fluarix Quad (PF) (flu vacc [id number] 6mos up(PF)) 60 mcg (15 mcg x 0.5 ML INTRAMUSC Once 0.5 August 28, 2021 Discontinu ed Tiotropium [place] 2 PUFF INHALATION Every Morning 3 September 08, 2021 Active pneumococcal 23-maría ps vaccine 25 mcg/0.5 mL injection syringe 0.5 ML INTRAMUSC Once 0.5 December 25, 2021 Discontinu ed Methimazole 5 MG ORAL Daily Dylan fraga2021 Active Encounters Encounter Facility Location Admit/Visit Date Discharge/Departure Date Attending Provider Registered Inpatient [facility] Cardiology January 20, 2022 4:54pm Elvin Hansen Departed Physician/Pro vider Office Visit [facility] Pulmonology December 25, 2021 3:14pm December 25, 2021 3:48pm Johnie Frazier Departed Physician/Pro vider Office Visit [facility] Pulmonology August 28, 2021 3:17pm August 28, 2021 3:42pm Johnie Frazier Departed Physician/Pro vider Office Visit [facility] Pulmonology May 22, 2021 2:47pm May 22, 2021 3:19pm Johnie Frazier Departed Physician/Pro vider Office Visit [facility] Pulmonology May 16, 2021 3:11pm May 16, 2021 11:59pm Johnie Frazier Departed Physician/Pro vider Office Visit [facility] Pulmonology February 27, 2021 7:57am February [...] 8:00am Blood Pressure Systolic 131 100-180 [facility] 2021 8:00am Blood Pressure Diastolic 81 70-85 Feb [facility] 2021 8:00am Body Mass Index 43.9 January 21, 2022 3:56am
--- OUTSIDE RECORDS SUMMARY | 2024-01-12 17:48 | XMS_ITS | Continuity of Care Document ---
Author Name [facility] Address [address] [place] [id number] Organization [facility] Address [address] [place] [id number] Support Name Relationship Address Phone Rachel Hidalgo Primary Care Provider 1 [facility] [address] [place], [place] [id number] Hector Coronado Emergency [facility] [address] [place] [id number] Brad Slaughter Admit Provider [address] [place] [id number] Brad Slaughter Attending Provider [address] [place] [id number] Allergies, Adverse Reactions, Alerts No known allergies. Medications Active Medications Medication Dose Units Route Sig Start Date Status Instructions Prednisone 0 Route .COMPLEX December 22, 2019 Active Taper as directed over ten days, then discontinue Cefpodoxime 200 MG ORAL Twice A Day 2019 Active for 7 days Diltiazem Hcl [Cardizem Cd] 240 MG ORAL DAILY December 22, 2019 Active Metoprolol Succinate [Toprol Xl] 100 MG ORAL DAILY December 22, 2019 Active Benzonatate [Tessalon Perles] 100 MG ORAL 3 TIMES A DAY PRN For Cough December 22, 2019 Active Codeine-Guaifenesin [Virtussin Ac] 10 ML ORAL Q4H PRN For Cough December 22, 2019 Active Hydrochlorothiazide 25 MG ORAL DAILY December 22, 2019 Active Oxycodone [Roxicodone] 5 MG ORAL Q4 H PRN For Pain, Severe (Scale Score 7-10) December 22, 2019 Active Tiotropium Anderson [Spiriva With Handihaler] 18 MCG INHALATION DAILY December 22, 2019 Active Roflumilast [Daliresp] 500 MCG ORAL DAILY December 22, 2019 Active Apixaban [Eliquis] 5 MG ORAL Twice A Day December 22, 2019 Active Azelastine 2 SPRAY NASAL DAILY PRN For Allergy Symptoms December 22, 2019 Active Albuterol Sulfate [Proair Hfa] 2 PUFF INHALATION Q4H PRN For Shortness Of Breath December 22, 2019 Active Budesonide-Formoterol [Symbicort] 2 PUFF INHALATION Twice A Day December 22, 2019 Active Omeprazole 20 MG ORAL DAILY December 22, 2019 Active Albuterol Sulfate [Proair Hfa] 2 PUFF INHALATION Q4H PRN For Shortness Of Breath December 22, 2019 Active Vitamin E 1000 UNIT ORAL DAILY December 22, 2019 Active Acetaminophen [Tylenol] 650 MG ORAL Q6H PRN For Pain, Mild (Scale Score 1-3) December 22, 2019 Active Vitamin B Complex 1 TAB ORAL DAILY [facility] 2019 Active Rxjjebskuejb-Xlup-Gkpx c Acid [Centrum] 1 TAB ORAL DAILY December 22, 2019 Active Problem List Active Problems Medical Problem Onset Date Status Obstructive sleep apnea Active Atrial flutter Active H/O cardiac radiofrequency ablation Active Acute exacerbation of chronic obstructive pulmon chu disease Active Procedures No known history of procedures. Relevant Diagnostic Tests and/or Laboratory Data Laboratory Results Test Date/Time Result Interp. Ref. Range Result Co mment White Blood Count 21.3 x10^3/uL High 3.8-11.3 Red Blood Count 4.85 x10^6/uL 4.7-6.1 Hemoglobin 13.7 g/dL 13.0-17.0 Hematocrit 43.3 % 38.0-49.0 Mean Corpuscular Volume 89.3 fL 80-100 Mean Corpuscular Hemoglobin 28.2 pg 26.7-33.0 Mean Corpuscular Hemoglobin Concent 31.6 g/dL 31.6-35.6 RDW Coefficient of Variation 15.8 % High 11.5-14.5 Platelet Count 256 x10^3/uL 150-450 Mean Platelet Volume 9.8 fL 7.4-13.5 Prothrombin Time 11.8 Sec 9.4-12.5 Prothromb Time International Ratio 1.0 0.8-1.1 INTERPRE TIVE NOTE: No anticoagulant: 0.8 to 1.1 Standard dose anticoagulant: 2.0 to 3.0 High dose anticoagulant: 2.5 to 3.5 Critical INR: > 5.0 Plasma Sodium 136 MMOL/L 136-145 Plasma Potassium 4.0 MMOL/L 3.5-5.1 Plasma Chloride 89 MMOL/L Low 98-107 Plasma Carbon Dioxide > 40 MMOL/L High 21-32 CRITICAL VALUE REPORTED AND READ BACK 22DEC2019 151 Anion Gap TNP Test not p erformed Unable to calculate. Plasma Calcium 8.8 MG/DL 8.7-10.4 Plasma Glucose Level 114 MG/DL High 74-106 Plasma Blood Urea Nitrogen 16 9-23 Note: New refer ence range and method effective 07/13/2019. Plasma Creatinine 0.6 MG/DL 0.6-1.1 No te: New reference range and method effective 07/13/2019. Estimated GFR (Non- 138.4 60- Estima janet GFR units = mL/min/1.73 m??? IDMS traceable MDRD study equation in use effective 02/17/18 Estimated GFR () 167.7 60- Estimated GFR units = mL/min/1.73 m??? [...] specimens should be drawn prior to dose. B-Type Natriuretic Peptide 33.5 pg/mL Prolactin 4.7 ng/mL 2.1-17.7 Please not e new reference ranges and method effective 07/13/2019. Normally Menstruating Females Non- Females 2.8 - 29.2 ng/mL Females 9.7 - >200 ng/mL Postmenopausal Females 1.8 - 20.3 ng/mL Males 2.1 - 17.7 ng/mL Troponin I 0.02 ng/mL 0.00-0.45 Procalcitonin 0.07 ng/ml High 0-0.05 Resul t Interpretations: PCT =<0.5ng/mL: Systemic infection not likely PCT >0.5 and =<2.0 ng/mL: Moderate risk for progression to systemic infection PCT >2.0 ng/mL: High risk for progression to systemic infection PCT >=10 ng/mL High likelihood of severe sepsis or septic shock. Rheumatoid Factor Negative Anti-Nuclear Antibody Screen Negative Venous Blood pH 7.39 7.32-7.43 Venous Blood Partial Pressure CO2 72 mmHg High 41-51 Venous Blood Partial Pressure O2 38 mmHg 30-40 Venous Blood Oxygen Saturation 69.2 % 60.0-80.00 VBG O2 saturati on result is dependent upon location the specimen is drawn from. VBG O2 saturation drawn from a PA catheter is the equivalent of a SvO2 (mixed venous oxygenation saturation) VBG O2 saturation drawn from a central line is the equivalent of a ScvO2 (central venous oxygenation saturation) Venous Blood HCO3 43 mmol/L High 22-29 Blood Gas Liter Flow 2 L/M 0-20 Blood Gas Comments Nc Blood Gas Patient Temperature 36.7 C Proteinase 3 (PR3) <1.0 AI V alue Interpretation <1.0 AI: No Antibody Detected >or=1.0 AI: Antibody Detected Autoantibodies to proteinase-3 (MD-3) are accepted as characteristic for granulomatosis with polyangiitis (GPA, Gera's), and are detectabale in 95% of the histologically proven cases. The cytoplasmic IFA pattern, (c-ANCA), is based largely on autoantibody to MD-3 which serves as the primary antigen. These autoantibodies are present in active disease. THIS TEST WAS PERFORMED AT: [facility] [address] [id number] Jose Cooper M.D., Ph.D.,Director of Laboratories Myeloperoxidase [...] you have a Health Care Proxy Declined November 30, 2019 4:12pm MOLST Form Reviewed/Completed With Patient No December 22, 2019 4:45pm Chief Complaint and Reason for Visit Encounter Admit Date Chief Complaint Reason for V isit Admitted Inpatient December 22, 2019 4:39pm COPD EXACERBATION Acute exacerbation of chronic obstructive pulmonary disease Hospital Discharge Instructions No known hospital discharge instructions. Hospital Discharge Medications Medication Dose Units Route Sig Qty Days Order Date Status Instructions Prednisone 0 Route .COMPLEX 2019 Active Taper as directed over ten days, then discontinue Cefpodoxime 200 MG ORAL Twice A Day December 22, 2019 Active for 7 days Diltiazem Hcl 240 MG ORAL DAILY Jaskaran hightower 2019 Active Metoprolol Succinate 100 MG ORAL DAILY December 22, 2019 Active Benzonatate 100 MG ORAL 3 TIMES A DAY PRN For Cough December 22, 2019 Active Codeine-Guaifenes in 10 ML ORAL Q4H PRN For Cough December 22, 2019 Active Hydrochlorothiazi de 25 MG ORAL DAILY December 22, 2019 Active Oxycodone 5 MG ORAL Q4H PRN For Pain, Severe (Scale Score 7-10) December 22, 2019 Active Tiotropium Anderson 18 MCG INHALATION DAILY December 22, 2019 Active Roflumilast 500 MCG ORAL DAILY 2019 Active Apixaban 5 MG ORAL Twice A Day December 22, 2019 Active Azelastine 2 SPRAY NASAL DAILY PRN For Allergy Symptoms December 22, 2019 Active Albuterol Sulfate 2 PUFF INHALATION Q4H PRN For Shortness Of Breath December 22, 2019 Active Budesonide-Formot dar 2 PUFF INHALATION Twice A Day December 22, 2019 Active Omeprazole 20 MG ORAL DAILY 2019 Active Albuterol Sulfate 2 PUFF INHALATION Q4H PRN For Shortness Of Breath December 22, 2019 Active Vitamin E 1000 UNIT ORAL DAILY 2019 Active Acetaminophen 650 MG ORAL Q6H PRN For Pain, Mild (Scale Score 1-3) December 22, 2019 Active Vitamin B Complex 1 TAB ORAL DAILY December 22, 2019 Active Multivitamin-Iron -Folic Acid 1 TAB ORAL DAILY December 22, 2019 Active Encounters Encounter Facility Location Admit/Visit Date Discharge/Departure Date Attending Provider Admitted Inpatient [place] [address] Unit December 22, 2019 4:39pm Brad Slaughter Registered Referred [facility] Internal Medicine December 21, 2019 11:15am Johnie Frazier Registered Referred [facility] Pulmonary November 30, 2019 4:10pm Johnie Frazier Registered Referred [facility] Internal [facility] November 30, 2019 3:00pm Johnie Frazier Registered Referred [facility] August 24, 2019 8:00am Johnie Frazier Registered Physician/Pro vider Office Visit [facility] August 24, 2019 12:00am [id number], Registered Physician/Pro vider Office Visit [facility] August 23, 2019 12:00am [id number], Registered Physician/Pro vider Office Visit [facility] July 22, 2019 12:00am [id number], Registered Physician/Pro vider Office Visit [facility] July 21, 2019 12:00am [id number], Registered Physician/Pro vider Office Visit [facility] July 16, 2019 12:00am [id number], Registered Physician/Pro vider Office Visit [facility] July 10, 2019 12:00am [id number], Registered Physician/Pro vider Office Visit [facility] July 09, 2019 12:00am [id number], Registered Physician/Pro vider Office Visit [facility] June 20, 2019 12:00am [id number], Registered Physician/Pro vider Office Visit [facility] May 24, 2019 12:00am [id number], Registered Referred [facility] April 13, 2019 8:15am Johnie Frazier Registered Physician/Pro vider Office Visit [facility] April 13, 2019 12:00am [id number], Registered Physician/Pro vider Office Visit [facility] April 12, 2019 12:00am [id number], Registered Physician/Pro vider Office Visit [facility] April 07, 2019 12:00am [id number], Registered Physician/Pro vider Office Visit [facility] March 26, 2019 12:00am [id number], Registered Physician/Pro vider Office Visit [facility] March 18, 2019 12:00am [id number], Registered Physician/Pro vider Office Visit [facility] March 11, 2019 12:00am [id number], Registered Physician/Pro vider Office Visit [facility] January 07, 2019 12:00am [id number], Registered Physician/Pro vider Office Visit [facility] January 05, 2019 12:00am [id number], Registered Physician/Pro vider Office Visit [facility] January 04, 2019 12:00am [id number], Encounter Diagnosis Onset Date Acute exacerbation of chronic obstructiv e pulmonary disease Functional Status No known functional status. Immunizations No known immunizations. Payers Payer Name Policy Type Covered Constitution Party Covered Constitution Party Id Relationship Subscriber Subscriber Id [employer] [place] [employer] Lissy Shashank [id number] Spouse Lissy Encarnacion [id number] [employer] OUT OF STATE PLAN Commerical Oly Dolan [id number] Self / Same As Patient Oly Dolan [id number] [employer] PPO Commerical Lissy Encarnacion [id number] Spouse Lissy Encarnacion [id number] SELF PAY Personal Payment (Anders - No Insurance) Plan of Care No Known Plan of Care Information Social History Query Response Date Recorded Comment Smoking Status Former smoker December 22, 2019 5:24pm Query Response Start Date Stop Date Smoking Status Former smoker Vital Signs Vital Reading Result Reference Range Collection Date/Time Height 5 ft 11 in December 22 0 12:52pm Weight 149.685 kg December 22 0 12:52pm Temperature 98.0 F 96.5 F-101.5 F December 22 020 4:28pm Pulse 100 BPM 50-110 December 22 0 6:06pm Respiration 18 RPM -December 22 0 6:06pm Pulse Oximetry 95 % 95-100 December 22 020 6:06pm Blood Pressure Systolic 100 100-180 Dylan sage 2019 6:06pm Blood Pressure Diastolic 70 70-85 Andreas tan 2019 6:06pm Body Mass Index 46.0 December 22, 2019 4:41pm
--- OUTSIDE RECORDS SUMMARY | 2024-01-12 17:48 | XMS_ITS | Continuity of Care Document ---
Author Name [facility] Address [address] [place] [address] Organization [facility] Address [address] [place] [address] Support Name Relationship Address Phone Rachel Hidalgo Primary Care Provider 1 [facility] [address] [place] [address] Mary Ellen Sandoval Emergency Provider [address], [place] [id number] Allergies, Adverse Reactions, Alerts No known allergies. [...] MG ORAL Daily January 08, 2021 Active Tiotropium [place] [Spiriva Respimat] 2 PUFF INHALATION Every Morning 3 September 08, 2021 Active Discontinued Medications Medication Dose [...] 2019 December 30, 2019 Disconti nued Tiotropium [place] [Spiriva With Handihaler] 18 MCG INHALAT ION [...] January 29, 2020 Disconti nued Fluarix Quad (PF) (flu vacc [id number] 6mos up(PF)) 60 mcg (15 mcg x 4)/0.5 mL IM syringe 0.5 ML [facility], 2020 Disconti nued [place]-3 Fatty Acids [Fish Oil Concentrate] 1000 MG ORAL Daily [facility] [place] 2019 Unverifi ed Roflumilast [Daliresp] 500 MCG ORAL Daily 90 [facility] 2019August 06, 2021 Disconti nued Metoprolol Succinate TAB ORAL Februar y 2020January 09, 2021 Disconti nued Metoprolol Succinate 100 MG ORAL Daily Februar y 2020 Unverifi ed Prednisone 0 ORAL .COMP SANDER 20 8 May 16, 2021 May 24, 2021 Disconti nued 40mg po qAM x2days, 30 mg x2days,20 mg x2days,then 10mg x2 days, then off. Azithromycin 500 MG ORAL Daily 5 5 Ross e 2020May 21, 2021 Disconti nued Fluarix Quad (PF) (flu vacc [id number] 6mos up(PF)) 60 mcg (15 mcg x 4)/0.5 mL IM syringe 0.5 ML INTRAMU SC Once 0.5 [facility] [place] 2020August 28, 2021 Disconti nued pneumococcal 23-maría ps vaccine 25 mcg/0.5 mL injection syringe 0.5 ML INTRAMU SC Once 0.5 December 25, 2021 December 25, 2021 Disconti nued Methimazole 5 MG ORAL Daily [id number] Unveri ed Problem List Active Problems Medical Problem Onset [...] January 20, 2022 2:30pm 0.6 % 0-2.0 Lactic Acid Level January 20, 2022 3:04pm 0.4 MMOL/L 0.4-2.0 Chief Complaint and Reason for Visit Encounter Admit Date Chief Complaint Reason for V isit Registered Emergency January 20, 2022 1:28pm [facility]ILLS/L EG [facility] Hospital Discharge Instructions No known hospital discharge [...] 2021 Active Prednisone 0 Route .COMPLEX Dylan 2019 Discontinu ed Taper as directed over [...] 7-10) December 22, 2019 Discontinu ed Tiotropium [place] 18 MCG INHALATION Daily December 22, 2019 Discontinu ed Roflumilast 500 MCG ORAL Daily Dylan 2019 [...] 90 MG ORAL Q6H 120 30 Ja [facility] 2019 Discontinu ed Chlorhexidine Gluconate [...] December 30, 2019 Discontinu ed Fluarix Quad [id number] (PF) (flu vacc [id number] 6mos up(PF)) 60 mcg (15 mcg x 0.5 ML INTRAMUSC Once 0.5 August 29, 2020 Discontinu ed [place]-3 Fatty Acids 1000 MG ORAL Daily August 29, 2020 Unverified Roflumilast 500 MCG ORAL Daily 90 Sept emb2019 Discontinu ed Fluticasone Propionate 1 SPRAY NASAL Twice A Day January 08, 2021 Active Furosemide 40 MG ORAL Twice A Day January 08, 2021 Active Metoprolol Succinate TAB ORAL January 08, 2021 Discontinu ed Amiodarone 200 MG ORAL Daily u 2020 Active Diltiazem Hcl 240 MG ORAL Daily Fe bruary 2020 Active Metoprolol Succinate 100 MG ORAL Daily January 09, 2021 Unverified Prednisone 0 ORAL .COMPLEX 20 8 May 16, 2021 Discontinu ed 40mg po qAM x2days, 30 mg x2days,20 mg x2days,then 10mg x2 days, then off. Azithromycin 500 MG ORAL Daily 5 5 May Discontinu ed Fluarix Quad (PF) (flu vacc [id number] 6mos up(PF)) 60 mcg (15 mcg x 0.5 ML INTRAMUSC Once 0.5 August 28, 2021 Discontinu ed Tiotropium [place] 2 PUFF INHALATION Every Morning 3 September 08, 2021 Active pneumococcal 23-maría ps vaccine 25 mcg/0.5 mL injection syringe 0.5 ML INTRAMUSC Once 0.5 December 25, 2021 Discontinu ed Methimazole 5 MG ORAL Daily 2021 Unverified Encounters Encounter Facility Location Admit/Visit Date Discharge/Departure Date Attending Provider Registered Emergency [facility] January 20, 2022 1:28pm Departed Physician/Pro vider Office Visit [facility] December 25, 2021 3:14pm December 25, 2021 3:48pm Johnie Frazier Departed Physician/Pro vider Office Visit [facility] August 28, 2021 3:17pm August 28, 2021 3:42pm Johnie Frazier Departed Physician/Pro vider Office Visit [facility] May 22, 2021 2:47pm May 22, 2021 3:19pm Johnie Frazier Departed Physician/Pro vider Office Visit [facility] May 16, 2021 3:11pm May 16, 2021 11:59pm Johnie Frazier Departed Physician/Pro vider Office Visit [facility] Pul[facility] February 27, 2021 7:57am February 27, 2021 1:38pm Johnie Frazier Functional Status No known functional status. Immunizations [...] Weight 142.882 kg January 20 1:34pm Temperature 98.0 F 96.8 F-100.4 F January 20, 2022 1:34pm Pulse 57 BPM 50-90 January 20 1:34pm Respiration 20 RPM -January 20 1:34pm Pulse Oximetry 93 % 95-100 January 20, 2022 1:34pm Blood Pressure Systolic 105 100-180 Febr ua 2021 1:34pm Blood Pressure Diastolic 69 70-85 Feb ruary 2021 1:34pm Body Mass Index 43.9 January 20, 2022 1:34pm
--- OUTSIDE RECORDS SUMMARY | 2024-01-12 17:48 | XMS_ITS | Continuity of Care Document ---
Author Name [facility] Address [address] [place] [address] Organization [facility] Address [address] [place] [address] Support Name Relationship Address Phone Rachel Hidalgo Primary Care Provider 1 [facility] [address] [place] [address] Johnie Frazier Attending Provider [address] [place] [id number] Rachel Hidalgo Primary Care Provider 1 [facility] [address] [place] [address] Johnie Frazier Attending Provider [address] [place] [phone] Allergies, Adverse Reactions, Alerts No known allergies. [...] ORAL Daily January 08, 2021 Active Tiotropium [place] [Spiriva Respimat] 2 PUFF INHALATION Every Morning [...] 2019 December 30, 2019 Disconti nued Tiotropium [place] [Spiriva With Handihaler] 18 MCG INHALAT ION [...] of 25mg prednisone followed by return to [facility] 10mg daily prednisone Lorazepam 0.5 MG [...] Disconti nued Fluarix Quad (PF) (flu vacc [id number] 6mos up(PF)) 60 mcg (15 mcg x 4)/0.5 mL IM syringe 0.5 ML INTRAMU SC Once 0.5 [facility] 2019August 29, 2020 Disconti nued [place]-3 Fatty Acids [Fish Oil Concentrate] 1000 MG ORAL Daily [facility] 2019 Unverifi ed Roflumilast [Daliresp] 500 MCG ORAL Daily 90 [facility] 2019August 06, 2021 Disconti nued Metoprolol [...] Disconti nued Fluarix Quad (PF) (flu vacc [id number] 6mos up(PF)) 60 mcg (15 mcg x 4)/0.5 mL IM syringe 0.5 ML INTRAMU SC Once 0.5 [facility] 2020August 28, 2021 Disconti nued pneumococcal 23-maría ps vaccine 25 mcg/0.5 mL injection syringe 0.5 ML INTRAMU SC Once 0.5 December 25, 2021 December 25, 2021 Disconti nued Methimazole 5 MG ORAL Daily 2021 Unverifi ed Problem List Active Problems Medical Problem Onset Date Status COPD, group D, by GOLD 2017 classification Active Chronic respiratory failure with hypercapnia Active Chronic respiratory failure with hypoxia Active Dyspnea on exertion Active Need for influenza vaccination A ctive Need for 23-polyvalent pneumococcal polysacchari de vaccine Active Atrial flutter Active Pulmonary hypertension Active Obstructive [...] Contact Location January 09, 2021 Johnie Frazier [phone] [place] [phone] Relevant Diagnostic Tests and/or Laboratory Data No known relevant diagnostic tests, laboratory data, and/or discharge summary. Chief Complaint and Reason for Visit Encounter Admit Date Chief Complaint Reason for V isit Departed Physician/Provider Office Visit December 25, 2021 3:14pm 3M COPD/VILLELA/DEVIN/CHRONIC RESP Need for 23-polyvalent pneumococcal polysaccharide vaccine Need for influenza vaccination Chronic respiratory failure [...] 17, 2021 Active Prednisone 0 Route .COMPLEX 2019 [...] 7-10) December 22, 2019 Discontinu ed Tiotropium [place] 18 MCG INHALATION Daily December 22, 2019 [...] December 30, 2019 Discontinu ed Fluarix Quad 1029-5128 (PF) (flu vacc [id number] 6mos up(PF)) 60 mcg (15 mcg x 0.5 ML INTRAMUSC Once 0.5 August 29, 2020 Discontinu ed [place]-3 Fatty Acids 1000 MG ORAL Daily August [...] Ross e 2020 Discontinu ed Fluarix Quad 8833-3196 (PF) (flu vacc [id number] 6mos up(PF)) 60 mcg (15 mcg x 0.5 ML INTRAMUSC Once 0.August 28, 2021 Discontinu ed Tiotropium [place] 2 PUFF INHALATION Every Morning September 08, 2021 Active pneumococcal 23-maría ps vaccine 25 mcg/0.5 mL injection syringe 0.5 ML INTRAMUSC Once 0.December 25, 2021 Discontinu ed Methimazole 5 MG ORAL Daily 2021 Unverified pneumococcal 23-maría ps vaccine 25 mcg/0.5 mL injection syringe 0.5 ML Once 0.December 25, 2021 Discontinu ed pneumococcal 23-maría ps vaccine 25 mcg/0.5 mL injection syringe 0.5 ML Once 0.December 25, 2021 Discontinu ed pneumococcal 23-maría ps vaccine 25 mcg/0.5 mL injection syringe 0.5 ML Once 0.December 25, 2021 Discontinu ed pneumococcal 23-maría ps vaccine 25 mcg/0.5 mL injection syringe 0.5 ML Once 0.December 25, 2021 Discontinu ed pneumococcal 23-maría ps vaccine 25 mcg/0.5 mL injection syringe 0.5 ML Once 0.December 25, 2021 Discontinu ed pneumococcal 23-maría ps vaccine 25 mcg/0.5 mL injection syringe 0.5 ML Once 0.December 25, 2021 Discontinu ed pneumococcal 23-maría ps vaccine 25 mcg/0.5 mL injection syringe 0.5 ML Once 0.December 25, 2021 Discontinu ed pneumococcal 23-maría ps vaccine 25 mcg/0.5 mL injection syringe 0.5 ML Once 0.December 25, 2021 Discontinu ed pneumococcal 23-maría ps vaccine 25 mcg/0.5 mL injection syringe 0.5 ML Once 0.December 25, 2021 Discontinu ed pneumococcal 23-maría ps vaccine 25 mcg/0.5 mL injection syringe 0.5 ML Once 0.December 25, 2021 Discontinu ed pneumococcal 23-maría ps vaccine 25 mcg/0.5 mL injection syringe 0.5 ML Once 0.December 25, 2021 Discontinu ed pneumococcal 23-maría ps vaccine 25 mcg/0.5 mL injection syringe 0.5 ML Once 0.December 25, 2021 Discontinu ed pneumococcal 23-maría ps vaccine 25 mcg/0.5 mL injection syringe 0.5 ML Once 0.December 25, 2021 Discontinu ed Encounters Encounter Facility Location Admit/Visit Date Discharge/Departure Date Attending Provider Departed Physician/Pro vider Office Visit [facility] December 25, 2021 3:14pm December 25, 2021 3:48pm Johnie Frazier Departed Physician/Pro vider Office Visit [facility] August 28, 2021 3:17pm August 28, 2021 3:42pm Johnie Frazier Departed Physician/Pro vider Office Visit [facility] May 22, 2021 2:47pm May 22, 2021 3:19pm Johnie Frazier Departed Physician/Pro vider Office Visit [facility] May 16, 2021 3:11pm May 16, 2021 11:59pm Johnie Frazier Departed Physician/Pro vider Office Visit [facility] February 27, 2021 7:57am February 27, 2021 1:38pm Johnie Frazier Departed Physician/Pro vider Office Visit [facility] January 09, 2021 8:22am January 09, 2021 8:53am Johnie Frazier Registered Inpatient [facility] January 08, 2021 11:43am Rossy Sanchez Encounter Diagnosis Onset Date Need for 23-polyvalent pneumococcal poly saccharide vaccine Need for influenza vaccination Chronic respiratory failure [...] Collection Date/Time Height 5 ft 11 in Kaci 25, 202 2 3:18pm Weight 145.603 kg December 25 2 3:18pm Pulse 66 BPM 50-90 December 25 2 3:18pm Respiration 16 RPM 12-20 December 25 3:18pm Pulse Oximetry 94 % 95-100 December 25, 022 3:18pm [facility] 142 100[facility] 3:18[facility] Blood Pressure Diastolic 78 70-[address] [facility] 2021 3:18pm Body Mass Index 44.7 December 25, 2021 3:18pm
--- OUTSIDE RECORDS SUMMARY | 2024-01-12 17:48 | XMS_ITS | Continuity of Care Document ---
Author Name [facility] Address [address] [place] [address] [facility] Address [address] [place] [address] Support Name Relationship Address Phone Rachel Hidalgo Primary Care Provider 1 [facility] [address] [place], [place] [id number] Johnie Frazier Attending Provider [address] [place] [address] Allergies, Adverse Reactions, Alerts No allergy information available. Medications No medication information available. Problem List No problem information available. Procedures No known history of procedures. Relevant Diagnostic Tests and/or Laboratory Data No known relevant diagnostic tests, laboratory data, and/or discharge summary. Chief Complaint and Reason for Visit Encounter Admit Date Chief Complaint Reason for V isit Discharged Recurring November 12, 2017 1:30pm [facility] Discharge Instructions No known hospital discharge instructions. Encounters Encounter Facility Location Admit/Visit Date Discharge/Departure Date Attending Provider Discharged Recurring [facility] Cardiac Rehab II November 12, 2017 1:30pm November 30, 2017 11:59pm Johnie Frazier Functional Status No known functional status. Immunizations No known immunizations. Payers Payer Name Policy Type Covered Libertarian Covered Libertarian Id Relationship Subscriber Subscriber Id MARGA DEL CASTILLO OUT OF STATE PLAN Commerical OLY TAMAYO [id number] Self / Same As Patient OLY TAMAYO [id number] MARGA DEL CASTILLO PPO Commerical OLY TAMAYO [id number] Self / Same As Patient OLY TAMAYO [id number] SELF PAY Personal Payment (Anders - No Insurance) Plan of Care No Known Plan of Care Information Social History Query Response Start Date Stop Date Smoking Status Unknown if ever smoked Vital Signs No known vital signs results.
--- OUTSIDE RECORDS SUMMARY | 2024-01-12 17:48 | XMS_ITS | Continuity of Care Document ---
Author Name [facility] Address [address] [place] [id number] Organization [facility] Address [address] [place] [address] Support Name Relationship Address Phone Rachel Hidalgo Primary Care Provider [address] [place] [phone] [place] Emergency Provider [address] [place] [address] DdLexie nuñez Admit Provider [address] [place] [address] Jonah Prakash Attending Provider [address] [place] [address] Tre Randhawa Other Provider [facility] [address] [place] [address] Jonathan Mi Other Provider [facility] [address] [place] [address] Rachel Hidalgo Primary Care Provider [address] [place] [phone] Mary Ellen Sandoval Emergency Provider [address] [place] [address] Lexie Morris Admit Provider [address] [place] [address] Jonah Prakash Other Provider [address] [place] [address] Elvin Hansen Attending Provider [address] [place] [phone] Allergies, Adverse Reactions, Alerts No known allergies. [...] A Day 16 January 22, 2022 Active [place]-3 Fatty Acids [Fish Oil Concentrate] 1000 MG [...] ORAL Daily January 09, 2021 Active Tiotropium [place] [Spiriva Respimat] 2 PUFF INHALATION Every Morning [...] 2019 December 30, 2019 Disconti nued Tiotropium [place] [Spiriva With Handihaler] 18 MCG INHALAT ION [...] January 29, 2020 Disconti nued Fluarix Quad 0143-9090 (PF) (flu vacc [id number] 6mos up(PF)) 60 mcg (15 mcg x [...] Disconti nued Fluarix Quad (PF) (flu vacc [id number] 6mos up(PF)) 60 mcg (15 mcg x 4)/0.5 mL IM syringe 0.5 ML [facility]U SC [facility] Disconti nued [...] Amplification (KIARA) Rapid Molecular test. Performed on [employer] This test has been authorized by the FDA under an Emergency Use Authorization (EAU) for use by authorized laboratories. Advance Directives Advance Directive Response Recorded Date/ Time Do you have a Health Care Proxy Declined January 20, 2022 7:51pm Health Care Proxy Name luis manuel hairston [phone] January 20, 2022 7:51pm MOLST Form [...] 7-10) December 22, 2019 Discontinu ed Tiotropium [place] 18 MCG INHALATION Daily December 22, 2019 [...] 2022 Active Fluarix Quad (PF) (flu vacc [id number] 6mos up(PF)) 60 mcg (15 mcg x 0.5 ML INTRAMUSC Once 0.5 August 29, 2020 Discontinu ed [place]-3 Fatty Acids 1000 MG ORAL Daily August [...] Discontinu ed Fluarix Quad (PF) (flu vacc [id number] 6mos up(PF)) 60 mcg (15 mcg x 0.5 ML INTRAMUSC Once 0.5 August 28, 2021 Discontinu ed Tiotropium [place] 2 PUFF INHALATION Every Morning 3 September 08, 2021 Active pneumococcal 23-maría ps vaccine 25 mcg/0.5 mL injection syringe 0.5 ML INTRAMUSC Once 0.5 December 25, 2021 Discontinu ed Methimazole 5 MG ORAL Daily Dylan [email or web address] Active Encounters Encounter Facility Location Admit/Visit Date Discharge/Departure Date Attending Provider Registered Inpatient [facility] Cardiology January 20, 2022 4:54pm [...] Johnie Frazier Departed Physician/Pro vider Office Visit [facility] Pulmonology May 16, 2021 3:11pm May [...] 8:00am Blood Pressure Systolic 131 100-[address] [facility] 2021 8:00am Blood Pressure Diastolic 81 70-85 Feb [facility] 2021 8:00am Body Mass Index 43.9 January 21, 2022 3:56am
[2024-01-12 17:49] LABS: Appearance Urine Clear; Color Urine Yellow; Glucose Urine UA Negative (Negative); Leukocyte Esterase Urine Negative (Negative); Nitrite Urine Negative (Negative); Specific Gravity - Urine 1.015 (1.005-1.025); UMIC TRIGGER UACC YES; Urine Blood Negative (Negative); Urine Ketones Negative (Negative); Urine Protein 100 (2+) mg/dL (Neg-Trace)
--- OUTSIDE RECORDS SUMMARY | 2024-01-12 17:49 | XMS_ITS | Continuity of Care Document ---
Author Name Unknown Address [address] [place] [address] Phone [facility] Address [address] [place] [address] Phone Support Name Relationship Address Phone [facility] [address] [place] [address] MD [facility] Primary Care Provider [address] [place] [address] MD Johnie Frazier Attending Provider [address] [place] [address] MD Mary Ellen Sandoval Emergency Provider [address] [place] [address] JERRY Morris Admit Provider [address] [place] [address] MD Jonah Prakash Attending Provider [address] [place] [address] Chief Complaint and Reason for Visit Chief Complaint Oxygen Levels Possible exacerbation AUDIO - [phone] 3M COPD/VILLELA/DEVIN/CHRONIC RESP 3M COPD/VILLELA/DEVIN/CHRONIC RESP 3M COPD/VILLELA/DEVIN/CHRONIC RESP CELLULITIS, SUPERFICIAL THROMBOPLEBITIS Reason for Visit Chronic respiratory failure with hypercapnia Chronic respiratory failure with hypoxia COPD, group D, by GOLD 2017 classification Dyspnea on exertion Lung nodule Morbid obesity with body mass index (BMI) of 45.0 to 49.9 in adult Obstructive sleep apnea syndrome, severe Pulmonary hypertension COPD exacerbation Chronic respiratory failure with hypercapnia Chronic respiratory failure with hypoxia COPD, group D, by GOLD 2017 classification Dyspnea on exertion Lung nodule Morbid obesity with body mass index (BMI) of 45.0 to 49.9 in adult Obstructive sleep apnea syndrome, severe Pulmonary hypertension Chronic respiratory failure with hypercapnia Chronic respiratory failure with hypoxia COPD, group D, by GOLD 2017 classification Morbid obesity with body mass index (BMI) of 45.0 to 49.9 in adult Obstructive sleep apnea syndrome, severe Pulmonary hypertension Need for influenza vaccination Chronic respiratory failure with hypercapnia Chronic respiratory failure with hypoxia COPD, group D, by GOLD 2017 classification Morbid obesity with body mass index (BMI) of 45.0 to 49.9 in adult Obstructive sleep apnea syndrome, severe Pulmonary hypertension Need for 23-polyvalent pneumococcal polysaccharide vaccine Need for influenza vaccination Chronic respiratory failure with hypercapnia Chronic respiratory failure with hypoxia COPD, group D, by GOLD 2017 classification Morbid obesity with body mass index (BMI) of 45.0 to 49.9 in adult Obstructive sleep apnea syndrome, severe Pulmonary hypertension Atrial flutter Cellulitis COPD exacerbation Superficial thrombophlebitis Obstructive sleep apnea syndrome, severe Allergies, Adverse Reactions, Alerts No known allergies Social History Smoking Status Status Start Date End Date Date of Observa tion Ex-smoker (finding) January 20, 2022 5:02pm Observation Status Observation Response Date of Response Smoking Status Former smoker January 20 5:02pm How long ago did patient quit smoking August 29, 2020 8:33am Tobacco type cigarettes August 29, 2020 8:33am Smoking packs per day 1.5 August 29, 2020 8:33am Smoking cigarettes per day 30.0 Septe mb2019 8:33am Years smoked August 29, 2020 8:33am Smoking pack-years 45.00 August 8:33am NHANES social isolation score Se ptember 2019 8:33am Additional Data Assigned Sex Male Family History Relationship Condition Age at Onset Recorded Date/T arnel father Malignant neoplasm of bone Unknown mother Chronic obstructive pulmonary disease Unk nown Problems Active Problems Medical Problem Onset Date Status [...] 49.9 in adult Active COPD exacerbation Active Medications Medication Status Dose Units Route Directions Qty Days St art Date End Date Instructions Albuterol Sulfate (Proair Hfa) 90 mcg/actuation HFA aerosol inhaler Discontin ued 2 PUFF INH Q4H 3 September 21, 2020 1:22pm Januar y 2021 9:01am Budesonide-Fo rmoterol (Symbicort) 160-4.5 mcg/actuation HFA aerosol inhaler Discontin ued 2 PUFF INH Twice A Day 10.2 February 23, 2021 7:44am February 26, 2021 3:56pm Rinse mouth after use Budesonide-Fo rmoterol (Symbicort) 160-4.5 mcg/actuation HFA aerosol inhaler Active 2 PUFF INH Twice A Day 3 February 26, 2021 3:55pm Roflumilast (Daliresp) 500 mcg tablet Active 500 MCG PO Daily 90 Septemb er 2020 1:35pm Azelastine Active 2 SPRAY NA Twice A Day 30 S eptemb er 2020 12:10pm Albuterol Sulfate (Proair Hfa) 90 mcg/actuation HFA aerosol inhaler Active 2 PUFF INH Q4H 3 December 17, 2021 9:00am Prednisone Discontin ued 0 .ROUTE .COMPLEX December 22, 2019 3:27pm 2019 4:34pm Taper as directed over ten days, then discontinue Cefpodoxime Discontin ued 200 MG PO Twice A Day December 22, 2019 3:27pm 2019 4:33pm for 7 days Diltiazem Hcl (Cardizem Cd) 240 mg capsule,exten ded release 24hr Discontin ued 240 MG PO Daily December 22, 2019 3:27pm 2019 4:33pm Metoprolol Succinate (Toprol Xl) 100 mg tablet extended release 24 hr Discontin ued 100 MG PO Daily December 22, 2019 3:27pm 2019 4:34pm Benzonatate (Tessalon Perles) 100 mg capsule Discontin ued 100 MG PO 3 Times A Day December 22, 2019 3:27pm 2020 11:46a m Codeine-Guaif enesin (Virtussin Ac) 10-100 mg/5 mL liquid Discontin ued 10 ML PO Q4H December 22, 2019 3:27pm 2020 11:47a m Hydrochloroth iazide Discontin ued 25 MG PO Daily December 22, 2019 3:27pm 2019 4:34pm Oxycodone (Roxicodone) 5 mg tablet Discontin ued 5 MG PO Q4H December 22, 2019 3:27pm y 2019 4:34pm Tiotropium [place] (Spiriva With Handihaler) 18 mcg capsule, w/inhalation device Discontin ued 18 MCG INH Daily December 22, 2019 3:27pm Octobe r 2020 9:15am Roflumilast (Daliresp) 500 mcg tablet Discontin ued 500 MCG PO Daily December 22, 2019 3:27pm Septem greer 2019 8:48am Apixaban (Eliquis) 5 mg tablet Active 5 MG PO Twice A Day December 22, 2019 3:27pm Azelastine Discontin ued 2 SPRAY NA Daily December 22, 2019 3:49pm Septem greer 2020 12:11p m Albuterol Sulfate (Proair Hfa) 90 mcg/actuation HFA aerosol inhaler Discontin ued 2 PUFF INH Q4H December 22, 2019 3:49pm Octobe r 2019 1:23pm Budesonide-Fo rmoterol (Symbicort) 160-4.5 mcg/actuation HFA aerosol inhaler Discontin ued 2 PUFF INH Twice A Day December 22, 2019 3:49pm February 23, 2021 7:45am Omeprazole Active 20 MG PO Daily 2019 4:17pm Albuterol Sulfate (Proair Hfa) 90 mcg/actuation Hfa Aerosol Inhaler Discontin ued 2 PUFF INH Q4H December 22, 2019 4:17pm Octobe r 2019 1:23pm Vitamin E Active 1000 UNIT PO Daily December 22, 2019 4:19pm Acetaminophen (Tylenol) 325 mg Tablet Active 650 MG PO Q6H December 22, 2019 4:19pm Vitamin B Complex Active 1 TAB PO Daily December 22, 2019 4:19pm Multivitamin- Iron-Folic Acid (Centrum) 18-400 mg-mcg Tablet Active 1 TAB PO Daily December 22, 2019 4:19pm Furosemide Discontin ued 40 MG IV 0800,1600 240 December 30, 2019 4:33pm 2019 12:03a m Ipratropium-A lbuterol Discontin ued 1 AMP NEB Q4H AROUND THE CLOCK (RESP) 30 December 30, 2019 4:33pm 2019 12:03a m Amiodarone Discontin ued 400 MG PO Q8H 36 December 30, 2019 4:33pm 2019 12:03a m Amiodarone Discontin ued 200 MG PO Daily 30 December 30, 2019 4:33pm 2019 12:03a m to be started AFTER 400mg load completes Amlodipine Discontin ued 5 MG PO Daily 30 December 30, 2019 4:33pm 2019 12:03a m Acetazolamide Sodium Discontin ued 250 MG IV Daily 7 December 30, 2019 4:33pm 2019 12:03a m Docusate Sodium Discontin ued 100 MG PO Twice A Day 60 December 30, 2019 4:33pm 2019 12:03a m Budesonide Discontin ued 0.5 MG NEB TWICE A DAY (RESP) 120 December 30, 2019 4:33pm 2019 12:03a m Diltiazem Hcl Discontin ued 90 MG PO Q6H 120 December 30, 2019 4:33pm 2019 12:03a m Chlorhexidine Gluconate Discontin ued 15 ML MT 3 Times A Day 30 December 30, 2019 4:33pm 2019 12:03a m Sennosides (Senna Lax) 8.6 mg Tablet Discontin ued 2 EACH PO At Bedtime 60 December 30, 2019 4:35pm 2019 12:03a m Prednisone Discontin ued 50 MG PO WITH BREAKFAST 10 December 30, 2019 4:35pm 2019 12:04a m Please taper with 5 days of 25mg prednisone followed by return to [facility] 10mg daily prednisone Lorazepam Discontin ued 0.5 MG PO Q12H 60 December 30, 2019 4:35pm ua 2019 12:03a m Metoprolol Tartrate Discontin ued 50 MG PO Q6H 120 December 30, 2019 4:35pm 2019 12:03a m Insulin Lispro (Humalog U-100 Insulin) 100 unit/mL Solution Discontin ued 0 UNIT SC With Meals and at Bedtime December 30, 2019 4:35pm ua 2019 12:03a m Sodium Chloride (Deep Sea Nasal) 0.65 % Aerosol,[place] Discontin ued 2 SPRAY NA Q4H 10 December 30, 2019 4:35pm 2019 12:03a m Fontana-3 Fatty Acids (Fish Oil Concentrate) 1,000 mg capsule Active [address] [facility] er 2019 8:37am Roflumilast (Daliresp) 500 mcg tablet Discontin ued 500 MCG PO [facility] 8:47am Septem greer 2020 1:35pm Fluticasone Propionate Active 1 SPRAY NA Twice A Day r 2020 11:47am Furosemide Active 40 MG PO Twice A Day F ebruar y 2020 11:49am Metoprolol Succinate Discontin ued TAB PO uar y 2020 11:50am [facility] Amiodarone Active 200 MG PO Daily ua r y 2020 11:50am Diltiazem Hcl (Cartia Xt) 240 mg capsule,exten ded release 24hr Active 240 MG PO Daily uar y 2020 11:55am Metoprolol Succinate Active 100 MG PO Daily 2020 8:27am Prednisone Discontin ued 0 PO .COMPLEX 20 8 May 16, 2021 4:51pm May 23, 2021 11:03p m 40mg po qAM x2days, 30 mg x2days,20 mg x2days,then 10mg x2 days, then off. 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 Vaccine, 23 valent December 25, 2021 [id number] Influenza vaccine, quadrivalent, adjuvanted August 29, 2020 [id number] tetanus and diphth toxoids, adsorbed, adult December 11, 2021 Procedures Procedure Date Performed Status Blood Culture January 20, 2022 active Relevant Diagnostic Tests and/or Laboratory Data Laboratory Results Test Date/Time Result Interpretation Reference Range Result Comment Performing Site White Blood Count January 20, 2022 2:30pm 10.7 x10^3/uL 3.8-11.3 [facility] [address] [place] [address] Red Blood Count January 20, 2022 2:30pm 4.67 x10^6/uL 4.7-6.1 [facility] [address] [place] [address] Hemoglobin January 20, 2022 2:30pm 14.2 g/dL 13.0-17.0 [facility] [address] [place] [address] Hematocrit January 20, 2022 2:30pm 42.9 % 38.0-49.0 [facility] [address] [place] [address] Mean Corpuscular Volume January 20, 2022 2:30pm 91.9 fL 80-100 [facility] [address] [place] [address] Mean Corpuscular Hemoglobin January 20, 2022 2:30pm 30.4 pg 26.7-33.0 [facility] [address] [place] [address] 26458 Mean Corpuscular Hemoglobin Concent January 20, 2022 2:30pm 33.1 g/dL 31.6-35.6 [facility] [address] [place] [address] RDW Coefficient of Variation January 20, 2022 2:30pm 15.3 % 11.5-14.5 [facility] [address] [place] [address] Platelet Count January 20, 2022 2:30pm 155 x10^3/uL 150-[address] [address] Mean Platelet Volume January 20, 2022 2:30pm 11.8 fL 7.4-13.[address] [address] Neutrophils (%) (Auto) January 20, 2022 2:30pm 72.3 % 38.0-84.0 [facility] [address] [place] [address] Lymphocytes (%) (Auto) January 20, 2022 2:30pm 17.1 % 20.0-40.[address] [address] Monocytes (%) (Auto) January 20, 2022 2:30pm 8.8 % 3.0-13.[address] [address] Eosinophils (%) (Auto) January 20, 2022 2:30pm 1.2 % 0.0-6.0 [facility] [address] [place] [address] Basophils (%) (Auto) January 20, 2022 2:30pm 0.6 % 0-2.[address] [address] Plasma Sodium January 20, 2022 4:08pm 140 MMOL/L 136-[address] [address] Plasma Potassium January 20, 2022 4:08pm 3.7 MMOL/L 3.5-5.1 [facility] [address] [place] [address] Plasma Chloride January 20, 2022 4:08pm 99 MMOL/L 98-[address] [address] Plasma Carbon Dioxide January 20, 2022 4:08pm 34 MMOL/L 21-[address] [address] Anion Gap January 20, 2022 4:08pm 7 4-[address] [address] Plasma Calcium January 20, 2022 4:08pm 8.8 MG/DL 8.7-10.[address] [address] Plasma Glucose Level January 20, 2022 4:08pm 92 MG/DL 74-[address] [address] Plasma Blood Urea Nitrogen January 20, 2022 4:08pm 15 9-23 Note: New reference range and method effective 07/13/2019. [address] [address] Plasma Creatinine January 20, 2022 4:08pm 0.74 mg/dL 0.70-1.[address] [address] Estimated GFR (CKD-EPI) January 20, 2022 4:08pm 104 >60 NOTE: New 2020 CKD-EPI equation in use effective 11/13/21Race specific equations for eGFR are no longer recommended by the [employer]. [address] [address] Lactic Acid Level January 20, 2022 3:04pm 0.4 MMOL/L 0.4-2.[address] [address] Procalcitonin January 20, 2022 4:08pm 0.25 ng/ml 0-0.05 Result Interpretation s:PCT =<0.5ng/mL: Systemic infection not likelyPCT >0.5 and =<2.0 ng/mL: Moderate risk for progression to systemic infectionPCT >2.0 ng/mL: High risk for progression to systemic infectionPCT >=10 ng/mL High likelihood of severe sepsis or septic shock. [address] [address] Coronavirus 2019 (KIARA) January 20, 2022 4:56pm Negative Negative A Negative Result means that the SARS-CoV-2 RNA was not [...] be considered in consultation with public health authorities.Fa lse negative results may occur if a specimen is improperly collected, transported or handled, if inadequate levels of virus are present in the specimen, or if amplification inhibitors are present in the specimen.Metho dology: Nucleic Acid Amplification (KIARA) Rapid Molecular test. Performed on [employer] test has been authorized by the FDA under an Emergency Use Authorization (EAU) for use by authorized laboratories. [facility] [address] [place] [address] Diagnostic Imaging Reports Report Dictated Date/Time Dictated By Status Radiology Report January 20, 2022 3:54pm Agustín Thorpe MD completed [facility] [phone] [place] [address] ULTRASOUND REPORT Signed Patient: OLY TAMAOY MR#: [id number] : 1960 Acct:[id number] Age/Sex: 61 / M ADM Date: 2 Loc: ER Attending Dr: Ordering Physician: Waqas Gautam MD Date of Service: 01/20/22 Procedure(s): US venous doppler LE RT Accession Number(s): [id number] cc: Waqas Gautam MD~ History: Leg swelling and rash Examination: Ultrasound right leg venogram Findings: Real time and static ultrasound images of the deep venous system of the right lower extremity were obtained. These reveal normal compressibility extending from the level of the right common femoral to the popliteal vein. There is no sonographic evidence of deep venous thrombosis. Doppler evaluation, including color and spectral analysis, shows normal respiratory phasicity and augmentation with compression. Limited Doppler evaluation of the left common femoral vein shows normal respiratory phasicity. Superficial thrombus involving the right greater saphenous vein in the mid to distal medial calf. US/US venous doppler LE RT Impression: No deep venous thrombosis of the right lower extremity. Superficial thrombus involving the right greater saphenous vein in the mid to distal medial calf in the region of swelling. Finding may represent a superficial thrombophlebitis. Dictated and Electronically Signed by: Agustín Thorpe MD ([id number]) Dictated Date and Time:01/20/22 1554 Technologist: Lopez Roque Vital Signs Vital Reading Result Reference Range Collection Date/Time Height 71 [in_i] May 22, 2021 1:57pm Weight 140.61 kg May 22, 2021 1:57pm Heart Rate 70 /min 50-90 May 22, 2021 1:57pm Respiratory rate 18 /min 12-20 May 22, 2021 1:57pm Oxygen saturation by Pulse oximetry 94 % 95-100 May 22, 2021 1:57 pm BP Systolic 138 mm[Hg] 100-180 May 22, 2021 1:57pm BP Diastolic 80 mm[Hg] 70-85 May 22, 2021 1:57pm BMI (Body Mass Index) 43.2 kg/m2 May 022020 1:57pm Height 71 [in_i] August 28, 2021 2:21pm Weight 143.33 kg August 28, 2021 2:21pm Heart Rate 65 /min 50-90 August 28, 2021 2:21pm Respiratory rate 16 /min -August 022020 2:21pm Oxygen saturation by Pulse oximetry 94 % 95-100 August 28, 2021 2:21pm BP Systolic 132 mm[Hg] 100-180 August 28, 2021 2:21pm BP Diastolic 80 mm[Hg] 70-85 August 28, 2021 2:21pm BMI (Body Mass Index) 44.0 kg/m2 2020 2:21pm Height 71 [in_i] December 25, 2 022 3:18pm Weight 145.60 kg December 25, 2 022 3:18pm Heart Rate 66 /min 50-90 December 25, 2 022 3:18pm Respiratory rate 16 /min -December 3:18pm Oxygen saturation by Pulse oximetry 94 % 95-100 December 25, 2021 3 :18pm BP Systolic 142 mm[Hg] 100-180 December 25, 2 022 3:18pm BP Diastolic 78 mm[Hg] 70-85 December 25, 2 022 3:18pm BMI (Body Mass Index) 44.7 kg/m2 Sha 2021 3:18pm Height 71 [in_i] January 20, 2022 1:34pm Weight 142.88 kg January 20, 2022 1:34pm Body Temperature 98.3 [degF] 96.8-100.4 January 202021 6:46pm Heart Rate 62 /min 50-90 January 20, 2022 6:46pm Respiratory rate 16 /min -January 202021 6:46pm Oxygen saturation by Pulse oximetry 95 % 95-100 January 20, 2022 6:46pm BP Systolic 149 mm[Hg] 100-180 January 20, 2022 6:46pm BP Diastolic 88 mm[Hg] 70-85 January 20, 2022 6:46pm BMI (Body Mass Index) 43.9 kg/m2 Februa 2021 1:34pm Advance Directives Advance Directive Response Recorded Date/ Time Do you have a Health Care Proxy Declined December 29, 2019 11:33pm MOLST Form Reviewed/Completed With Patient No December 22, 2019 7:57pm Insurance Providers Guarantor OLY TAMAYO Address [address] [facility] [address] Contact Info. Home Phone: Payer Policy Id Coverage Id Subscriber's Name Subscriber Id Effective Date Expiration Date [place] [id number] OLY TAMAYO [id number] BLUE [employer]OSS OUT OF STATE PLAN [id number] OLY TAMAYO [id number] [employer] PPO [id number] Anurag Munoz [id number] SELF PAY Encounters Encounter Location(s) Arrival/Admit Date Discharge/Depart Date Provider(s) Departed Physician/Prov ider Office Visit [facility] Pulmonology February 27, 2021 6:57am February 27, 2021 12:38pm Johnie Frazier MD Departed Physician/Prov ider Office Visit [facility] May 16, 2021 2:11pm May 16, 2021 10:59pm Johnie Frazier MD Departed Physician/Prov ider Office Visit [facility] May 22, 2021 1:47pm May 22, 2021 2:19pm Johnie Frazier MD Departed Physician/Prov ider Office Visit [facility] August 28, 2021 2:17pm August 28, 2021 2:42pm Johnie Frazier MD Departed Physician/Prov ider Office Visit [facility] December 25, 2021 3:14pm December 25, 2021 3:48pm Johnie Frazier MD Admitted Inpatient [place] [address] Unit January 20, 2022 4:54pm Jonah Prakash MD Recent Diagnosis Onset Date Chronic respiratory failure with hyperca pnia Chronic respiratory failure with hypoxia COPD, group D, by GOLD 2017 classificati on Dyspnea on exertion Lung nodule Morbid obesity with body mass index (BMI ) of 45.0 to 49.9 in adult Obstructive sleep apnea syndrome, severe Pulmonary hypertension COPD exacerbation Chronic respiratory failure with hyperca pnia Chronic respiratory failure with hypoxia COPD, group D, by GOLD 2017 classificati on Dyspnea on exertion Lung nodule Morbid obesity with body mass index (BMI ) of 45.0 to 49.9 in adult Obstructive sleep apnea syndrome, severe Pulmonary hypertension Chronic respiratory failure with hyperca pnia Chronic respiratory failure with hypoxia COPD, group D, by GOLD 2017 classificati on Morbid obesity with body mass index (BMI ) of 45.0 to 49.9 in adult Obstructive sleep apnea syndrome, severe Pulmonary hypertension Need for influenza vaccination Chronic respiratory failure with hyperca pnia Chronic respiratory failure with hypoxia COPD, group D, by GOLD 2017 classificati on Morbid obesity with body mass index (BMI ) of 45.0 to 49.9 in adult Obstructive sleep apnea syndrome, severe Pulmonary hypertension Need for 23-polyvalent pneumococcal poly saccharide vaccine Need for influenza vaccination Chronic respiratory failure with hyperca pnia Chronic respiratory failure with hypoxia COPD, group D, by GOLD 2017 classificati on Morbid obesity with body mass index (BMI ) of 45.0 to 49.9 in adult Obstructive sleep apnea syndrome, severe Pulmonary hypertension Atrial flutter Cellulitis COPD exacerbation Superficial thrombophlebitis Obstructive sleep apnea syndrome, severe Assessments Diagnosis Onset Date Resolution Status Chronic respiratory failure with hypercapnia chronic Chronic respiratory failure with hypoxia chronic COPD, group D, by GOLD 2017 classification chronic Dyspnea on exertion chronic Lung nodule chronic Morbid obesity with body mas s index (BMI) of 45.0 to 49.9 in adult chronic Obstructive sleep apnea syndrome, severe chronic Pulmonary hypertension chron ic COPD exacerbation acute Chronic respiratory failure with hypercapnia chronic Chronic respiratory failure with hypoxia chronic COPD, group D, by GOLD 2017 classification chronic Dyspnea on exertion chronic Lung nodule chronic Morbid obesity with body mas s index (BMI) of 45.0 to 49.9 in adult chronic Obstructive sleep apnea syndrome, severe chronic Pulmonary hypertension chron ic Chronic respiratory failure with hypercapnia chronic Chronic respiratory failure with hypoxia chronic COPD, group D, by GOLD 2017 classification chronic Morbid obesity with body mas s index (BMI) of 45.0 to 49.9 in adult chronic Obstructive sleep apnea syndrome, severe chronic Pulmonary hypertension chron ic Need for influenza vaccination acute Chronic respiratory failure with hypercapnia chronic Chronic respiratory failure with hypoxia chronic COPD, group D, by GOLD 2017 classification chronic Morbid obesity with body mas s index (BMI) of 45.0 to 49.9 in adult chronic Obstructive sleep apnea syndrome, severe chronic Pulmonary hypertension chron ic Need for 23-polyvalent pneum ococcal polysaccharide vaccine acute Need for influenza vaccination acute Chronic respiratory failure with hypercapnia chronic Chronic respiratory failure with hypoxia chronic COPD, group D, by GOLD 2017 classification chronic Morbid obesity with body mas s index (BMI) of 45.0 to 49.9 in adult chronic Obstructive sleep apnea syndrome, severe chronic Pulmonary hypertension chron ic Atrial flutter acute Cellulitis acute COPD exacerbation acute Superficial thrombophlebitis acute Obstructive sleep apnea syndrome, severe chronic Plan of Treatment 1. Lung nodule - 9mm GGO in lingula, unchanged, no need for further follow-up. 2. Chronic respiratory failure with hypercapnia and hypoxia - weaning down from 4L O2 to 1 L O2 ([employer]) on exertion when exercising. Goal O2 sats 88-94%. Currently also bleeding in 4L O2 in Astral at night, advised to decrease to 2 L O2 bled into Astral. Recent increase in O2 requirements due to worsening weight. 3. Severe OSAS - currently on Astral vent at night ([employer]) with improved oxygenation. Pt is using Astral all night every night, is benefitting from use. it is medically necessary to continue using Astral NIV. 3. GOLD Class D COPD - currently on symbicort/spireva handihaler/proair/daliresp/alb nebs. Stable. Continue present therapy. 4. VILLELA - multifactorial (GOLD III COPD, deconditioning). finished outpt pulm rehab. pt exercising on treadmill daily for 30 minutes in past, but since he hurt his back, hasn't exercised in last 3 weeks. monitor O2 sats with goal O2 sat > 88%, use 1-2 L O2 on exertion. pt has stopped exercising regularly since he's gone back to work. Advised to continue with treadmill daily. Has lost 26 lb since last visit, helpful. 5. CO2 retainer - advised pt to maintain O2 sats 88-94% only. 6. Recurrent PE - eliquis, likely longlong.anticoagulation. 7. Vaccinations - UTD on all pulm vaccinations. 8. Pulmonary hypertension noted on CT. 2/2 COPD/chronic hypoxia despite CPAP use. reviewed latest ECHO (11/18), had ECHO with Dr. Huerta in 05/20. ECHO is nondiagnostic due to poor windows. Pt referred to tertiary pulmonary rehab center for diagnostic RHC. Rheum work-up negative so far. Referred to [facility] Pulm HTN clinic, pt finally saw doctor. Ruling out other causes of pulm HTN. Will hold off on sildenifil until [facility] Pulmonary HTN clinic visit. Pt has called [facility] pulm HTN clinic for appt but never got call back. 9. Morbid obesity, BMI 43 - has lost weight, 26lb since last visit. Stressed relationship between obesity and breathing/OSAS. Strongly advised to improve diet. Goal wt 250lb. [facility]. 10. COVID-19 - got COVID vaccine in 01/21. 11. Back pain is limiting pt's exercise. Advised to get this evaluated and treated since it's imperitive for patient to resume exercise. Suggested pain clinic for possible epidural injections (worked well in the past, per patient). 1. Lung nodule - 9mm GGO in lingula, unchanged, no need for further follow-up. 2. Chronic respiratory failure with hypercapnia and hypoxia - weaning down from 4L O2 to 1 L O2 ([employer]) on exertion when exercising. Goal O2 sats 88-94%. Currently also bleeding in 4L O2 in Astral at night, advised to decrease to 2 L O2 bled into Astral. Recent increase in O2 requirements due to worsening weight. 3. Severe OSAS - currently on Astral vent at night ([employer]) with improved oxygenation. [employer] adjust Astral, with improved symptoms. Pt is using Astral all night every night, is benefitting from use. it is medically necessary to continue using Astral NIV. 3. GOLD Class D COPD - currently on symbicort/spireva handihaler/proair/daliresp/alb nebs. Stable. Continue present therapy. 4. VILLELA - multifactorial (GOLD III COPD, deconditioning). finished outpt pulm rehab. pt exercising on treadmill daily for 30 minutes. monitor O2 sats with goal O2 sat > 88%, use 1-2 L O2 on exertion. pt has stopped exercising regularly since he's gone back to work. Advised to continue with treadmill daily. 5. CO2 retainer - advised pt to maintain O2 sats 88-94% only. 6. Recurrent PE - eliquis, likely longlong.anticoagulation. 7. Vaccinations - UTD on all pulm vaccinations. 8. Pulmonary hypertension noted on CT. 2/2 COPD/chronic hypoxia despite CPAP use. reviewed latest ECHO (11/18), had ECHO with Dr. Huerta in 05/20. ECHO is nondiagnostic due to poor windows. Pt referred to tertiary pulmonary rehab center for diagnostic RHC. Rheum work-up negative so far. Referred to [facility] Pulm HTN clinic, pt finally saw doctor. Ruling out other causes of pulm HTN. Will hold off on sildenifil until [facility] Pulmonary HTN clinic visit. Pt has called [facility] pulm HTN clinic for appt but never got call back. 9. Morbid obesity, BMI 47 - Stressed relationship between obesity and breathing/OSAS. pt has lost significant weight, but needs to lose more; pt has regained 28 lb over past 3 months. Strongly advised to improve diet. Goal wt 250lb. Referred to [facility], but pt wants to do protein shake diet for now. 11. Back pain is limiting pt's exercise, ice it after exercise. telehealth video: 18 minutes. 60 yo morbidly obese male with chronic respiratory failure with hypercapnia and hypoxia, GOLD D COPD, pulm HTN, severe OSAS on Astral NIV at night. 0. COPD exacerbation - currently on prednisone Rx. Will do short prednisone taper and Zpak x 5 days. Will see pt next week if not better. 1. Lung nodule - 9mm GGO in lingula, unchanged, no need for further follow-up. 2. Chronic respiratory failure with hypercapnia and hypoxia - weaning down from 4L O2 to 1 L O2 ([employer]) on exertion when exercising. Goal O2 sats 88-94%. Currently also bleeding in 4L O2 in Astral at night, advised to decrease to 2 L O2 bled into Astral. Recent increase in O2 requirements due to worsening weight. 3. Severe OSAS - currently on Astral vent at night ([employer]) with improved oxygenation. [employer] adjust Astral, with improved symptoms. Pt is using Astral all night every night, is benefitting from use. it is medically necessary to continue using Astral NIV. 3. GOLD Class D COPD - currently on symbicort/spireva handihaler/proair/daliresp/alb nebs. Stable. Continue present therapy. Check if Trelegy is cheaper to Symbicort/spireva. 4. VILLELA - multifactorial (GOLD III COPD, deconditioning). finished outpt pulm rehab. pt exercising on treadmill daily for 30 minutes. monitor O2 sats with goal O2 sat > 88%, use 1-2 L O2 on exertion. pt has stopped exercising regularly since he's gone back to work. Advised to continue with treadmill daily. 5. CO2 retainer - advised pt to maintain O2 sats 88-94% only. 6. Recurrent PE - eliquis, likely longlong.anticoagulation. 7. Vaccinations - UTD on all pulm vaccinations. 8. Pulmonary hypertension noted on CT. 2/2 COPD/chronic hypoxia despite CPAP use. reviewed latest ECHO (11/18), had ECHO with Dr. Huerta in 05/20. ECHO is nondiagnostic due to poor windows. Pt referred to tertiary pulmonary rehab center for diagnostic RHC. Rheum work-up negative so far. Referred to [facility] Pulm HTN clinic, pt finally saw doctor. Ruling out other causes of pulm HTN. Will hold off on sildenifil until [facility] Pulmonary HTN clinic visit. Pt has called [facility] pulm HTN clinic for appt but never got call back. 9. Morbid obesity, BMI 47 - Stressed relationship between obesity and breathing/OSAS. pt has lost significant weight, but needs to lose more; pt has regained 28 lb over past 3 months. Strongly advised to improve diet. Goal wt 250lb. Referred to [facility], but pt is doing protein shake diet for now, has lost 20 lbs. Continue. 11. Back pain is limiting pt's exercise, ice it after exercise. telehealth video: 22 minutes. 1. Lung nodule - 9mm GGO in lingula, unchanged, no need for further follow-up. 2. Chronic respiratory failure with hypercapnia and hypoxia - weaning down from 4L O2 to 1 L O2 ([employer]) on exertion when exercising. Goal O2 sats 88-94%. Currently also bleeding in 4L O2 in Astral at night, advised to decrease to 2 L O2 bled into Astral. Recent increase in O2 requirements due to worsening weight. 3. Severe OSAS - currently on Astral vent at night ([employer]) with improved oxygenation. Pt is using Astral all night every night, is benefitting from use. it is medically necessary to continue using Astral NIV. 3. GOLD Class D COPD - currently on symbicort/spireva handihaler/proair/daliresp/alb nebs. Stable. Continue present therapy. 4. VILLELA - multifactorial (GOLD III COPD, deconditioning). finished outpt pulm rehab. pt exercising on treadmill daily for 30 minutes in past, but since he hurt his back, hasn't exercised in last 3 weeks. monitor O2 sats with goal O2 sat > 88%, use 1-2 L O2 on exertion. pt has stopped exercising regularly since he's gone back to work. Advised to continue with treadmill daily. Has lost 26 lb since last visit, helpful. 5. CO2 retainer - advised pt to maintain O2 sats 88-94% only. 6. Recurrent PE - eliquis, likely longlong.anticoagulation. 7. Vaccinations - UTD on all pulm vaccinations. Given flu vaccine today. 8. Pulmonary hypertension noted on CT. 2/2 COPD/chronic hypoxia despite CPAP use. reviewed latest ECHO (11/18), had ECHO with Dr. Huerta in 05/20. ECHO is nondiagnostic due to poor windows. Pt referred to tertiary pulmonary rehab center for diagnostic RHC. Rheum work-up negative so far. Referred to [facility] Pulm HTN clinic, pt finally saw doctor. Ruling out other causes of pulm HTN. Will hold off on sildenifil until [facility] Pulmonary HTN clinic visit. Pt has called [facility] pulm HTN clinic for appt but never got call back. 9. Morbid obesity, BMI 43 - has lost weight, 26lb since last visit. Stressed relationship between obesity and breathing/OSAS. Strongly advised to improve diet. Goal wt 250lb. Referred to [facility]. 10. Vaccinations - got COVID vaccine in 01/21. Given flu vaccine today. 11. Back pain is limiting pt's exercise. Advised to get this evaluated and treated since it's imperitive for patient to resume exercise. Suggested pain clinic for possible epidural injections (worked well in the past, per patient). 61 yo male with newly diagnosed hypothroidism, with CRF with hypercapnia and hypoxia, 1. Lung nodule - 9mm GGO in lingula, unchanged, no need for further follow-up. 2. Chronic respiratory failure with hypercapnia and hypoxia - weaning down from 4L O2 to 1 L O2 ([employer]) on exertion when exercising. Goal O2 sats 88-94%. Currently also bleeding in 4L O2 in Astral at night, advised to decrease to 2 L O2 bled into Astral. Recent increase in O2 requirements due to worsening weight. 3. Severe OSAS - currently on Astral vent at night ([employer]) with improved oxygenation. Pt is using Astral all night every night, is benefitting from use. it is medically necessary to continue using Astral NIV. 3. GOLD Class D COPD - currently on symbicort/spireva respimat/proair/daliresp/alb nebs. Stable. Continue present therapy. 4. VILLELA - multifactorial (GOLD III COPD, deconditioning). finished outpt pulm rehab. pt exercising on treadmill daily for 30 minutes in past, but since he hurt his back, hasn't exercised in last 3 weeks. monitor O2 sats with goal O2 sat > 88%, use 1-2 L O2 on exertion. pt has stopped exercising regularly since he's gone back to work. Advised to continue with treadmill just on weekends. 5. CO2 retainer - advised pt to maintain O2 sats 88-94% only. 6. Recurrent PE - eliquis, likely longlong.anticoagulation. 7. Vaccinations - UTD flu vaccine. Got COVID shots x 2 only, got COVID 01/26 and 02/21, and 10/06/21; eligible for PPSV 23, given today. 8. Pulmonary hypertension noted on CT. 2/2 COPD/chronic hypoxia despite CPAP use. reviewed latest ECHO (11/18), had ECHO with Dr. Huerta in 05/20. ECHO is nondiagnostic due to poor windows. Pt referred to tertiary pulmonary rehab center for diagnostic RHC. Rheum work-up negative so far. Referred to [facility] Pulm HTN clinic, pt finally saw doctor. Ruling out other causes of pulm HTN. Will hold off on sildenifil until [facility] Pulmonary HTN clinic visit. Pt has called [facility] pul HTN clinic for appt but never got call back. 9. Morbid obesity, BMI 44 - has gained wt. Stressed relationship between obesity and breathing/OSAS. Strongly advised to improve diet. Goal wt 250lb. Referred to [facility]. 11. Back pain is limiting pt's exercise. Advised to get this evaluated and treated since it's imperitive for patient to resume exercise. Suggested pain clinic for possible epidural injections (worked well in the past, per patient). Future Tests Future scheduled test information is unavailable Pending Tests Pending diagnostic test information is unavailable Future Visits Future appointment information is unavailable Referrals to Other Providers Reason for Referral Referral Start Date Provider Provider Contact Information Provider Address Rachel Hidalgo MD Work Phone: [address] [address] Future Procedures Future procedure information is unavailable Future Medications Future medication information is unavailable Patient Instructions Patient instructions are unavailable Goals Acute Goals Ongoing and prior to dischar ge per patient stated goal 30 m inutes post pain intervention Prior to discharge
--- OUTSIDE RECORDS SUMMARY | 2024-01-12 17:49 | XMS_ITS | Continuity of Care Document ---
Author Name Unknown Address [address] [place] [id number] Phone [facility] Address [address] [place] [address] Phone Support Name Relationship Address Phone [facility] [address] [place] [address] MD Gwen [facility] Primary Care Provider [address] [place] [address] MD Johnie Frazier Attending Provider [address] [facility] [place] [address] MD Mary Ellen Sandoval Emergency Provider [address] [place] [address] JERRY Morris Admit Provider [address] [place] [address] MD Jonah Prakash Other Provider [address] [place] [address] MD Elvin Hansen Attending Provider [address] [place] [address] Chief Complaint and Reason for Visit Chief Complaint Oxygen Levels Possible exacerbation AUDIO - [phone] 3M COPD/VILLELA/DEVIN/CHRONIC RESP 3M COPD/VILLELA/DEVIN/CHRONIC RESP 3M [...] Date of Observa tion Ex-smoker (finding) January 22, 2022 11:30am Observation Status Observation Response Date of Response Smoking Status Former smoker January 22 11:30am How long ago did patient quit smoking August 29, 2020 8:33am Tobacco type cigarettes August 29, 2020 8:33am Smoking packs per day 1.5 August 29, 2020 8:33am Smoking cigarettes per day 30.0 Septe mb2019 8:33am Years smoked August 29, 2020 8:33am Smoking pack-years 45.00 August 8:33am [facility] social isolation score ptember 2019 8:33am Additional Data Assigned Sex [...] (Proair Hfa) 90 mcg/actuation HFA aerosol inhaler Disconti nued 2 PUFF INH Q4H 3 September 21, 2020 1:22pm Januar y 2021 9:01am Budesonide-Fo rmoterol (Symbicort) 160-4.5 mcg/actuation HFA aerosol inhaler Disconti nued 2 PUFF INH Twice A Day 10.2 [...] Q4H 3 December 17, 2021 9:00am Prednisone Disconti nued 0 .ROUTE .COMPLEX December 22, 2019 3:27pm 2019 4:34pm Taper as directed over ten days, then discontinue Cefpodoxime Disconti nued 200 MG PO Twice A Day December 22, 2019 3:27pm 2019 4:33pm for 7 days Diltiazem Hcl (Cardizem Cd) 240 mg capsule,exten ded release 24hr Disconti nued 240 MG PO Daily December 22, 2019 3:27pm y 2019 4:33pm Metoprolol Succinate (Toprol Xl) 100 mg tablet extended release 24 hr Disconti nued 100 MG PO Daily December 22, 2019 3:27pm 2019 4:34pm Benzonatate (Tessalon Perles) 100 mg capsule Disconti nued 100 MG PO 3 Times A Day December 22, 2019 3:27pm ua 2020 11:46a m Codeine-Guaif enesin (Virtussin Ac) 10-100 mg/5 mL liquid Disconti nued 10 ML PO Q4H December 22, 2019 3:27pm ua 2020 11:47a m Hydrochloroth iazide Disconti nued 25 MG PO Daily December 22, 2019 3:27pm 2019 4:34pm Oxycodone (Roxicodone) 5 mg tablet Disconti nued 5 MG PO Q4H December 22, 2019 3:27pm 2019 4:34pm Tiotropium [place] (Spiriva With Handihaler) 18 mcg capsule, w/inhalation device Disconti nued 18 MCG INH Daily December 22, 2019 3:27pm Octobe r 2020 9:15am Roflumilast (Daliresp) 500 mcg tablet Disconti nued 500 MCG PO Daily December 22, 2019 3:27pm Septem greer 2019 8:48am Apixaban (Eliquis) 5 mg tablet Active 5 MG PO Twice A Day December 22, 2019 3:27pm Azelastine Disconti nued 2 SPRAY NA Daily December 22, 2019 3:49pm Septem greer 2020 12:11p m Albuterol Sulfate (Proair Hfa) 90 mcg/actuation HFA aerosol inhaler Disconti nued 2 PUFF INH Q4H December 22, 2019 3:49pm Octobe r 2019 1:23pm Budesonide-Fo rmoterol (Symbicort) 160-4.5 mcg/actuation HFA aerosol inhaler Disconti nued 2 PUFF INH Twice A Day December 22, 2019 3:49pm February 23, 2021 7:45am Omeprazole Active 20 MG PO Daily 2019 4:17pm Albuterol Sulfate (Proair Hfa) 90 mcg/actuation Hfa Aerosol Inhaler Disconti nued 2 PUFF INH Q4H December 22, 2019 [...] PO Daily December 22, 2019 4:19pm Furosemide Disconti nued 40 MG IV 0800,1600 240 December 30, 2019 4:33pm 2019 12:03a m Ipratropium-A lbuterol Disconti nued 1 AMP NEB Q4H AROUND THE CLOCK (RESP) December 30, 2019 4:33pm 2019 12:03a m Amiodarone Disconti nued 400 MG PO Q8H 36 December 30, 2019 4:33pm 2019 12:03a m Amiodarone Disconti nued 200 MG PO Daily 30 December 30, 2019 4:33pm 2019 12:03a m to be started AFTER 400mg load completes Amlodipine Disconti nued 5 MG PO Daily 30 December 30, 2019 4:33pm 2019 12:03a m Acetazolamide Sodium Disconti nued 250 MG IV Daily 7 December 30, 2019 4:33pm 2019 12:03a m Docusate Sodium Disconti nued 100 MG PO Twice A Day 60 December 30, 2019 4:33pm 2019 12:03a m Budesonide Disconti nued 0.5 MG NEB TWICE A DAY (RESP) 120 December 30, 2019 4:33pm 2019 12:03a m Diltiazem Hcl Disconti nued 90 MG PO Q6H 120 December 30, 2019 4:33pm 2019 12:03a m Chlorhexidine Gluconate Disconti nued 15 ML MT 3 Times A Day 30 December 30, 2019 4:33pm 2019 12:03a m Sennosides (Senna Lax) 8.6 mg Tablet Disconti nued 2 EACH PO At Bedtime 60 December 30, 2019 4:35pm 2019 12:03a m Prednisone Disconti nued 50 MG PO WITH BREAKFAST 10 December 30, 2019 4:35pm 2019 12:04a m Please taper with 5 days of 25mg prednisone followed by return to [facility] 10mg daily prednisone Lorazepam Disconti nued 0.5 MG PO Q12H 60 December 30, 2019 4:35pm 2019 12:03a m Metoprolol Tartrate Disconti nued 50 MG PO Q6H 120 December 30, 2019 4:35pm 2019 12:03a m Insulin Lispro (Humalog U-100 Insulin) 100 unit/mL Solution Disconti nued 0 UNIT SC With Meals and at Bedtime December 30, 2019 4:35pm 2019 12:03a m Sodium Chloride (Deep Sea Nasal) 0.65 % Aerosol,[place] Disconti nued 2 SPRAY NA Q4H 10 December 30, 2019 4:35pm 2019 12:03a m Cholecalcifer ol (Vitamin D3) (Vitamin D3) 25 mcg (1,000 unit) Capsule Active 25 MCG PO Daily 2021 8:15pm Multivitamin Active TAB DRUG DELIVER Y SYSTEM Daily 2021 8:16pm Doxycycline Hyclate Active 100 MG PO Twice A Day 16 2021 12:50pm [place]-3 Fatty Acids (Fish Oil Concentrate) 1,000 mg capsule Active 1000 MG PO Daily er 2019 8:37am Roflumilast (Daliresp) 500 mcg tablet Disconti nued 500 MCG PO Daily 90 er 2019 8:47am Septem greer 2020 1:35pm Fluticasone Propionate Active 1 SPRAY NA Twice A Day uar y 2020 11:47am Furosemide Active 40 MG PO Twice A Day F ebruar y 2020 11:49am Metoprolol Succinate Disconti nued TAB PO 2020 11:50am Februa ry 2020 8:28am Amiodarone Active 200 MG PO Daily 2020 11:50am Diltiazem Hcl (Cartia Xt) 240 mg capsule,exten ded release 24hr Active 240 MG PO Daily 2020 11:55am Metoprolol Succinate Active 100 MG PO Daily 2020 8:27am Prednisone Disconti nued 0 PO .COMPLEX 20 8 May 16, 2021 4:51pm May 23, 2021 11:03p m 40mg po qAM x2days, 30 mg x2days,20 mg x2days,then 10mg x2 days, then off. Azithromycin Disconti nued 500 MG PO Daily 5 5 May 16, 2021 4:52pm May 20, 2021 11:03p m Tiotropium [place] (Spiriva Respimat) 2.5 mcg/actuation mist Active 2 PUFF INH Every Morning September 08, 2021 9:13am Methimazole Active 5 MG PO Daily 2021 3:19pm Immunizations Immunization Event Date Not Given Reason Dose Number [employer] Lot Number Vaccine Information Statement (VIS) Detail COVID-19, Moderna January 26, 2021 COVID-19, Moderna October 06, 2021 influenza, injectable, quadrivalent, pf August 28, 2021 [id number] Pneumococcal Polysacc. Vaccine, 23 valent December 25, 2021 [id number] Influenza vaccine, quadrivalent, adjuvanted August 29, 2020 [id number] tetanus and diphth toxoids, adsorbed, adult December 11, 2021 Vital Signs Vital Reading Result Reference Range [...] 3:18pm BMI (Body Mass Index) 44.7 kg/m2 2021 3:18pm Height 71 [in_i] January 20, 2022 7:51pm Weight 142.88 kg January 20, 2022 7:51pm Body Temperature 98.0 [degF] 96.8-100.4 January 222021 8:00am Heart Rate 60 /min 50-90 January 22, 2022 8:00am Respiratory rate 15 /min -January 222021 8:00am Oxygen saturation by Pulse oximetry 93 % 95-100 January 22, 2022 8:00am BP Systolic 131 mm[Hg] 100-180 January 22, 2022 8:00am BP Diastolic 81 mm[Hg] 70-85 January 22, 2022 8:00am BMI (Body Mass Index) 43.9 kg/m2 2021 3:56am Inhaled oxygen flow rate 2 L/min Feb ruary 2021 12:54am Advance Directives Advance Directive Response Recorded Date/ Time Do you have a Health Care Proxy Declined January 20, 2022 7:51pm Health Care Proxy Name lissy hairston [id number] January 20, 2022 7:51pm MOLST Form Reviewed/Complete d With Patient No January 20, 2022 7:51pm Insurance Providers Guarantor OLY PAYANELL Address [address] [place] [address] Contact Info. Home Phone: Payer Policy Id Coverage Id Subscriber's Name Subscriber Id Effective Date Expiration Date [place] [id number] OLY TAMAYO [id number] [employer] OUT OF STATE PLAN [id number] OLY TAMAYO [id number] [employer] PPO [id number] Anurag Munoz [id number] SELF PAY Encounters Encounter Location(s) Arrival/Admit Date Discharge/Depart Date Provider(s) Departed Physician/Prov ider Office Visit [facility] Pulmonology February 27, 2021 6:57am February 27, 2021 12:38pm Johnie Frazier MD Departed Physician/Prov ider Office Visit [facility] Pulmonology May 16, 2021 2:11pm May 16, 2021 10:59pm Johnie Frazier MD Departed Physician/Prov ider Office Visit [facility] Pulmonology May 22, 2021 1:47pm May 22, 2021 2:19pm Johnie Frazier MD Departed Physician/Prov ider Office Visit [facility] Pulmonology August 28, 2021 2:17pm August 28, 2021 2:42pm Johnie Frazier MD Departed Physician/Prov ider Office Visit [facility] Pulmonology December 25, 2021 3:14pm December 25, 2021 3:48pm Johnie Frazier MD Non-patient / Non-visit [facility] January 20, 2022 4:54pm Elvin Hansen MD Recent Diagnosis Onset Date Chronic respiratory [...] Rheum work-up negative so far. Referred to [facility] Pulm HTN clinic, pt finally saw doctor. Ruling out other causes of pulm HTN. Will hold off on sildenifil until [facility] Pulmonary HTN clinic visit. Pt has called [facility] pulm HTN clinic for appt but [...] Rheum work-up negative so far. Referred to [facility] Pulm HTN clinic, pt finally saw doctor. Ruling out other causes of pulm HTN. Will hold off on sildenifil until [facility] Pulmonary HTN clinic visit. Pt has called [facility] pulm HTN clinic for appt but [...] Rheum work-up negative so far. Referred to [facility] Pulm HTN clinic, pt finally saw doctor. Ruling out other causes of pulm HTN. Will hold off on sildenifil until [facility] Pulmonary HTN clinic visit. Pt has called [facility] pulm HTN clinic for appt but [...] Rheum work-up negative so far. Referred to [facility] Pulm HTN clinic, pt finally saw doctor. Ruling out other causes of pulm HTN. Will hold off on sildenifil until [facility] Pulmonary HTN clinic visit. Pt has called [facility] pulm HTN clinic for appt but [...] Rheum work-up negative so far. Referred to [facility] Pulm HTN clinic, pt finally saw doctor. Ruling out other causes of pulm HTN. Will hold off on sildenifil until [facility] Pulmonary HTN clinic visit. Pt has called [facility] pulm HTN clinic for appt but [...] Address Rachel Hidalgo MD Work Phone: [phone] [phone] Future Procedures Future procedure information is unavailable Future Medications Future medication information is unavailable Patient Instructions Cellulitis Dc
--- OUTSIDE RECORDS SUMMARY | 2024-01-12 17:49 | XMS_ITS | Continuity of Care Document ---
Author Name Unknown Address [address] [place] [address] Phone [facility] Address [address] [place] [address] Phone Support Name Relationship Address Phone [facility] [address] [place] [address] MD Gwen ashley Primary Care Provider [address] [place] [address] KIMBERLY Sanchez Attending Provider Unknown Unavailable MD Johnie Frazier Attending Provider [address] [place] [address] Chief Complaint and Reason for Visit Chief Complaint Amb Documentation COPD/ VILLELA/DEVIN/ CHRONIC RESP Oxygen Levels Possible exacerbation AUDIO - [phone] 3M COPD/VILLELA/DEVIN/CHRONIC RESP 3M COPD/VILLELA/DEVIN/CHRONIC RESP 3M COPD/VILLELA/DEVIN/CHRONIC RESP Reason for Visit Chronic respiratory failure with [...] Obstructive sleep apnea syndrome, severe Pulmonary hypertension Allergies, Adverse Reactions, Alerts No known allergies Social History Smoking Status Status Start Date End Date Date of Observa tion Ex-smoker (finding) 2019 9:33am Observation Status Observation Response Date of Response Smoking Status Former smoker August 29, 2020 8:33am How long ago did patient quit smoking August 29, 2020 8:33am Tobacco type cigarettes August 29, 2020 8:33am Smoking packs per day 1.5 August 29, 2020 8:33am Smoking cigarettes per day 30.0 2019 8:33am Years smoked August 29, 2020 8:33am Smoking pack-years 45.00 August 8:33am NHANES social isolation score pt2019 8:33am Additional Data Assigned Sex Male Family [...] SPRAY NA Twice A Day 30 S epte er 2020 12:10pm Albuterol Sulfate (Proair Hfa) [...] December 22, 2019 3:27pm 2019 4:34pm Tiotropium [place] (Spiriva With Handihaler) 18 mcg capsule, w/inhalation [...] Discontin ued 40 MG IV 0800,1600 240 30 December 30, 2019 4:33pm 2019 12:03a [...] 15 ML MT 3 Times A Day December 30, 2019 4:33pm 2019 12:03a m Sennosides (Senna Lax) 8.6 mg Tablet Discontin ued 2 EACH PO At Bedtime 60 December 30, 2019 4:35pm 2019 12:03a m Prednisone Discontin ued 50 MG PO WITH BREAKFAST 10 December 30, 2019 4:35pm 2019 12:04a m Please taper with 5 days of 25mg prednisone followed by return to hoem 10mg daily prednisone Lorazepam Discontin ued 0.5 MG PO Q12H 60 December 30, 2019 4:35pm 2019 12:03a m Metoprolol Tartrate Discontin ued 50 MG PO Q6H 120 December 30, 2019 4:35pm ua ry 2019 12:03a m Insulin Lispro (Humalog U-100 Insulin) 100 unit/mL Solution Discontin ued 0 UNIT SC With Meals and at Bedtime December 30, 2019 4:35pm ua ry 2019 12:03a m Sodium Chloride (Deep Sea Nasal) 0.65 % Aerosol,[place] Discontin ued 2 SPRAY NA Q4H 10 December 30, 2019 4:35pm ua ry 2019 12:03a m [place]-3 Fatty Acids (Fish Oil Concentrate) 1,000 mg capsule Active 1000 MG PO Daily er 2019 8:37am Roflumilast (Daliresp) 500 mcg tablet Discontin ued 500 MCG PO Daily 90 er 2019 8:47am Septem greer 2020 1:35pm Fluticasone Propionate Active 1 SPRAY NA Twice A Day 2020 11:47am Furosemide Active 40 MG PO Twice A Day F ebruar y 2020 11:49am Metoprolol Succinate Discontin ued TAB PO 2020 11:50am ua ry 2020 8:28am Amiodarone Active 200 MG PO Daily r 2020 11:50am Diltiazem Hcl (Cartia Xt) 240 [...] 4:52pm May 20, 2021 11:03p m Tiotropium [place] (Spiriva Respimat) 2.5 mcg/actuation mist Active 2 PUFF INH Every Morning September 08, 2021 9:13am Methimazole Active 5 MG PO Daily Janua ry 25th, 2022 3:19pm Immunizations Immunization Event Date Not Given Reason Dose Number [employer] Lot Number Vaccine Information Statement (VIS) Detail COVID-19, Moderna January 26, 2021 COVID-19, Moderna October 06, 2021 influenza, injectable, quadrivalent, pf August 28, 2021 [id number] Pneumococcal Polysacc. Vaccine, 23 valent December 25, 2021 [id number] Influenza vaccine, quadrivalent, adjuvanted August 29, 2020 [id number] tetanus and diphth toxoids, adsorbed, adult December 11, 2021 Vital Signs Vital Reading Result Reference Range Collection Date/Time Height 71 [in_i] January 09, 8:25am Weight 152.40 kg January 09 8:25am Heart Rate 58 /min 50-110 January 09, 8:25am Respiratory rate 17 /min -20 January 8:25am Oxygen saturation by Pulse oximetry 94 % 95-100 January 09, 2021 8 :25am BP Systolic 128 mm[Hg] 100-180 January 09, 021 8:25am BP Diastolic 76 mm[Hg] 70-85 January 09, 021 8:25am BMI (Body Mass Index) 46.8 kg/m2 Februa ry 2020 8:25am Inhaled oxygen flow rate 2 L/min [facility] 2020 8:25am Height 71 [in_i] May 22, 2021 1:57pm Weight 140.61 kg May 22, 2021 1:57pm Heart Rate 70 /min 50-90 May 22, 2021 1:57pm Respiratory rate 18 /min -20 May 22, 2021 1:57pm Oxygen saturation by [...] 28, 2021 2:21pm Respiratory rate 16 /min 12-20 August 022020 2:21pm Oxygen saturation by Pulse oximetry [...] BMI (Body Mass Index) 44.7 kg/m2 Sha tello 2021 3:18pm Advance Directives Advance Directive Response Recorded Date/ Time Do you have a Health Care Proxy Declined December 29, 2019 11:33pm MOLST Form Reviewed/Completed With Patient No December 22, 2019 7:57pm Insurance Providers Guarantor OLY TAMAYO Address [address] [place] [id number] Contact Info. Home Phone: Payer Policy Id Coverage Id Subscriber's Name Subscriber Id Effective Date Expiration Date [facility] [id number] OLY TAMAYO [id number] [place] OUT OF STATE PLAN [id number] OLY TAMAYO [id number] MARGA CROSS PPO [id number] Anurag Munoz [id number] SELF PAY Encounters Encounter Location(s) Arrival/Admit Date Discharge/Depart Date Provider(s) Non-patient / Non-visit [facility] January 08, 2021 11:43am Rossy Sanchez CPhT Departed Physician/Prov ider Office Visit [facility] Pulmonology January 09, 2021 8:22am January 09, 2021 8:53am Johnie Frazier MD Departed Physician/Prov ider Office Visit [facility] Pulmonology February 27, 2021 6:57am February 27, 2021 12:38pm Johnie Frazier MD Departed Physician/Prov ider Office Visit [facility] Pulmonology May 16, 2021 2:11pm May 16, 2021 10:59pm Johnie Frazier MD Departed Physician/Prov ider Office Visit [facility] Pulmonology May 22, 2021 1:47pm May 22, 2021 2:19pm Johnie Frazier MD Departed Physician/Prov ider Office Visit [facility] Pulmonology August 28, 2021 2:17pm August 28, 2021 2:42pm Johnie Frazier MD Departed Physician/Prov ider Office Visit [facility] Pulmonology December 25, 2021 3:14pm December 25, 2021 3:48pm Johnie Frazier MD Recent Diagnosis Onset Date Chronic respiratory [...] Obstructive sleep apnea syndrome, severe Pulmonary hypertension Assessments Diagnosis Onset Date Resolution Status Chronic [...] syndrome, severe chronic Pulmonary hypertension chron ic Plan of Treatment 1. Lung nodule - [...] Rheum work-up negative so far. Referred to [facility] Pulm HTN clinic, pt finally saw doctor. Ruling out other causes of pulm HTN. Will hold off on sildenifil until [facility] Pulmonary HTN clinic visit. Pt has called [facility] pulm HTN clinic for appt but never [...] Rheum work-up negative so far. Referred to [facility] Pulm HTN clinic, pt finally saw doctor. Ruling out other causes of pulm HTN. Will hold off on sildenifil until [facility] Pulmonary HTN clinic visit. Pt has called [facility] pulm HTN clinic for appt but never got call back. 9. Morbid obesity, BMI 47 - has lost weight. Stressed relationship between obesity and breathing/OSAS. pt has lost significant weight, but needs to lose more; pt has regained 28 lb over past 3 months. Strongly advised to improve diet. Goal wt 250lb. Referred [facility]. 10. COVID-19 counseling - strongly advised home isolation given pt is high risk for COVID-19 complications. Referred to COVID vaccine clinic. 11. Back pain is limiting pt's exercise. Advised to get this evaluated and treated since it's imperitive for patient to resume exercise. Suggested pain clinic for possible epidural injections (worked well in the past, per patient). Pt got in bad habits with diet. 1. Lung nodule - 9mm GGO in [...] Rheum work-up negative so far. Referred to [facility] Pulm HTN clinic, pt finally saw doctor. Ruling out other causes of pulm HTN. Will hold off on sildenifil until [facility] Pulmonary HTN clinic visit. Pt has called [facility] pulm HTN clinic for appt but never [...] Rheum work-up negative so far. Referred to [facility] Pulm HTN clinic, pt finally saw doctor. Ruling out other causes of pulm HTN. Will hold off on sildenifil until [facility] Pulmonary HTN clinic visit. Pt has called [facility] pulm HTN clinic for appt but never [...] today. 8. Pulmonary hypertension noted on CT. 2/ COPD/chronic hypoxia despite CPAP use. reviewed latest ECHO (11/18), had ECHO with Dr. Huerta in 05/20. ECHO is nondiagnostic due to poor windows. Pt referred to tertiary pulmonary rehab center for diagnostic RHC. Rheum work-up negative so far. Referred to [facility] Pulm HTN clinic, pt finally saw doctor. Ruling out other causes of pulm HTN. Will hold off on sildenifil until [facility] Pulmonary HTN clinic visit. Pt has called [facility] pulm HTN clinic for appt but never [...] and 02/21, and 10/06/21; eligible for PPSV 23. 8. Pulmonary hypertension noted on CT. 2/2 COPD/chronic hypoxia despite CPAP use. reviewed latest ECHO (11/18), had ECHO with Dr. Huerta in 05/20. ECHO is nondiagnostic due to poor windows. Pt referred to tertiary pulmonary rehab center for diagnostic RHC. Rheum work-up negative so far. Referred to [facility] Pulm HTN clinic, pt finally saw doctor. Ruling out other causes of pulm HTN. Will hold off on sildenifil until [facility] Pulmonary HTN clinic visit. Pt has called [facility] pulm HTN clinic for appt but never [...] Date Provider Provider Contact Information Provider Address I27.20 - Pulmonary hypertension, unspecified,J44.9 - Chronic obstructive pulmonary disease, unspecified January 09, 2021 Dinorah Motley MD Work Phone: /[phone] [place] [phone] Future Procedures Future procedure information is unavailable Future Medications Future medication information is unavailable Patient Instructions Patient instructions are unavailable
--- OUTSIDE RECORDS SUMMARY | 2024-01-12 17:49 | XMS_ITS | Continuity of Care Document ---
Author Name Unknown Address [address] [place] [address] Phone Organization [facility] Address [address] [place] [address] Phone Support Name Relationship Address Phone St Shashank Yuan [address] [place] [address] 0 Attending Provider Unknown Unavailab le Johnie Frazier Attending Provider [address] [place] [address] Rachel Hidalgo Primary Care Provider [address] [place] [address] Hector [place] [address] Brad Slaughter Admit Provider Unknown Benny Raymundo Attending Provider [address] [place] [id number] Attending Provider Unknown Unavailab le Allergies, Adverse Reactions, Alerts No known allergies. Medications Medication Status Dose Units Route Sig Qty Days Start Date End Date Instructions Prednisone Discontinu ed 0 .ROUTE .COMPLE X December 22, 2019 3:27pm December 30, 2019 4:34pm Taper as directed over ten days, then discontinue Cefpodoxime Discontinu ed 200 MG PO Twice A Day December 22, 2019 3:27pm December 30, 2019 4:33pm for 7 days Diltiazem Hcl (Cardizem Cd) 240 mg capsule,extend ed release 24hr Discontinu ed 240 MG PO Daily December 22, 2019 3:27pm December 30, 2019 4:33pm Metoprolol Succinate (Toprol Xl) 100 mg tablet extended release 24 hr Discontinu ed 100 MG PO Daily December 22, 2019 3:27pm December 30, 2019 4:34pm Benzonatate (Tessalon Perles) 100 mg capsule Active 100 MG PO 3 Times A Day December 22, 2019 3:27pm Codeine-Guaife nesin (Virtussin Ac) 10-100 mg/5 mL liquid Active 10 ML PO Q4H December 22, 2019 3:27pm Hydrochlorothi azide Discontinu ed 25 MG PO Daily December 22, 2019 3:27pm December 30, 2019 4:34pm Oxycodone (Roxicodone) 5 mg tablet Discontinu ed 5 MG PO Q4H December 22, 2019 3:27pm December 30, 2019 4:34pm Tiotropium [place] (Spiriva With Handihaler) 18 mcg capsule, w/inhalation device Active 18 MCG INH Daily December 22, 2019 3:27pm Roflumilast (Daliresp) 500 mcg tablet Discontinu ed 500 MCG PO Daily December 22, 2019 3:27pm Septemb er 2019 9:48am Apixaban (Eliquis) 5 mg tablet Active 5 MG PO Twice A Day December 22, 2019 3:27pm Azelastine Active 2 SPRAY NA Daily 2019 3:49pm Albuterol Sulfate (Proair Hfa) 90 mcg/actuation HFA aerosol inhaler Active 2 PUFF INH Q4H December 22, 2019 3:49pm Budesonide-For moterol (Symbicort) 160-4.5 mcg/actuation HFA aerosol inhaler Active 2 PUFF INH Twice A Day December 22, 2019 3:49pm Omeprazole Active 20 MG PO Daily 2019 4:17pm Albuterol Sulfate (Proair Hfa) 90 mcg/actuation Hfa Aerosol Inhaler Active 2 PUFF INH Q4H December 22, 2019 4:17pm Vitamin E Active 1000 UNIT PO Daily December 22, 2019 4:19pm Acetaminophen (Tylenol) 325 mg Tablet Active 650 MG PO Q6H December 22, 2019 4:19pm Vitamin B Complex Active 1 TAB PO Daily December 22, 2019 4:19pm Multivitamin-I pete-Folic Acid (Centrum) 18-400 mg-mcg Tablet Active 1 TAB PO Daily December 22, 2019 4:19pm Furosemide Discontinu ed 40 MG IV 0800,16 00 240 December 30, 2019 4:33pm Febr y 2019 12:03am Ipratropium-Al buterol Discontinu ed 1 AMP NEB Q4H AROUND THE CLOCK (RESP) 30 December 30, 2019 4:33pm Februa y 2019 12:03am Amiodarone Discontinu ed 400 MG PO Q8H 36 December 30, 2019 4:33pm Februa y 2019 12:03am Amiodarone Discontinu ed 200 MG PO Daily 30 December 30, 2019 4:33pm Februa y 2019 12:03am to be started AFTER 400mg load completes Amlodipine Discontinu ed 5 MG PO Daily 30 December 30, 2019 4:33pm Februa y 2019 12:03am Acetazolamide Sodium Discontinu ed 250 MG IV Daily 7 December 30, 2019 4:33pm Februar y 2019 12:03am Docusate Sodium Discontinu ed 100 MG PO Twice A Day 60 December 30, 2019 4:33pm Febr y 2019 12:03am Budesonide Discontinu ed 0.5 MG NEB TWICE A DAY (RESP) 120 December 30, 2019 4:33pm Februa y 2019 12:03am Diltiazem Hcl Discontinu ed 90 MG PO Q6H 120 December 30, 2019 4:33pm Februa y 2019 12:03am Chlorhexidine Gluconate Discontinu ed 15 ML MT 3 Times A Day 30 December 30, 2019 4:33pm Februa y 2019 12:03am Sennosides (Senna Lax) 8.6 mg Tablet Discontinu ed 2 EACH PO At Bedtime 60 December 30, 2019 4:35pm Febr y 2019 12:03am Prednisone Discontinu ed 50 MG PO WITH BREAKFA ST 10 December 30, 2019 4:35pm Februa y 2019 12:04am Please taper with 5 days of 25mg prednisone followed by return to hoem 10mg daily prednisone Lorazepam Discontinu ed 0.5 MG PO Q12H 60 December 30, 2019 4:35pm 2019 12:03am Metoprolol Tartrate Discontinu ed 50 MG PO Q6H 120 December 30, 2019 4:35pm 2019 12:03am Insulin Lispro (Humalog U-100 Insulin) 100 unit/mL Solution Discontinu ed 0 UNIT SC With Meals and at Bedtime 30 December 30, 2019 4:35pm 2019 12:03am Sodium Chloride (Deep Sea Nasal) 0.65 % Aerosol,Elmer Discontinu ed 2 SPRAY NA Q4H 10 December 30, 2019 4:35pm 2019 12:03am Discontinu ed 0.5 ML IM Once 0.5 Augembe r 2019 9:10am Septemb er 2019 10:06am [place]-3 Fatty Acids (Fish Oil Concentrate) 1,000 mg capsule Active 1000 MG PO Daily r 2019 9:37am Roflumilast (Daliresp) 500 mcg tablet Active 500 MCG PO Daily 90 r 2019 9:47am Problems Active Problems Medical Problem Onset Date [...] pulmon chu disease Active Procedures Procedure Date Performed Status Influenza Screen December 22, 2019 completed December 22, 2019 active December 22, 2019 active Relevant Diagnostic Tests and/or Laboratory Data Laboratory Results Test Date/Time Result Interpretation Reference Range Result Comment Performing Site White Blood Count December 30, 2019 6:25am 15.3 x10^3/uL 3.8-11.3 [facility] [address] [facility] [address] Red Blood Count December 30, 2019 6:25am 4.94 x10^6/uL 4.7-6.[address] [address] Hemoglobin December 30, 2019 6:25am 14.2 g/dL 13.0-17.[address] [address] Hematocrit December 30, 2019 6:25am 44.6 % 38.0-49.[address] [address] Mean Corpuscular Volume December 30, 2019 6:25am 90.3 fL 80-[address] [address] Mean Corpuscular Hemoglobin December 30, 2019 6:25am 28.7 pg 26.7-33.[address] [address] Mean Corpuscular Hemoglobin Concent December 30, 2019 6:25am 31.8 g/dL 31.6-35.[address] [address] RDW Coefficient of Variation December 30, 2019 6:25am 16.1 % 11.5-14.[address] [address] Platelet Count December 30, 2019 6:25am 151 x10^3/uL 150-[address] [address] Mean Platelet Volume December 30, 2019 6:25am 11.3 fL 7.4-13.[address] [address] Neutrophils (%) (Auto) December 30, 2019 6:25am 84.7 % 38.0-84.[address] [address] Lymphocytes (%) (Auto) December 30, 2019 6:25am 7.8 % 20.0-40.[address] [address] Monocytes (%) (Auto) December 30, 2019 6:25am 6.5 % 3.0-13.[address] [address] Eosinophils (%) (Auto) December 30, 2019 6:25am 0.8 % 0.0-6.[address] [address] Basophils (%) (Auto) December 30, 2019 6:25am 0.2 % 0-2.0 [facility] [address] [place] [address] Neutrophils % (Manual) December 25, 2019 8:34am 91.0 % 38-84 [facility] [address] [place] [address] Lymphocytes % (Manual) December 25, 2019 8:34am 2.0 % 20-[address] [address] Monocytes % (Manual) December 25, 2019 8:34am 4.0 % 3-12 [facility] [address] [place] [address] Band Neutrophils % (Manual) December 25, 2019 8:34am 2.0 % 0-4 [facility] [address] [place] [address] Metamyelocyte s % (manual) December 25, 2019 8:34am 1.0 0-[address] [address] Red Blood Cell Morphology December 25, 2019 8:34am Normal Normal [address] [address] Platelet Estimate December 25, 2019 8:34am Adequate [address] [address] Smear Scan December 26, 2019 6:28am Auto diff confirmed [address] [address] Prothrombin Time December 22, 2019 3:46pm 11.8 Sec 9.4-12.[address] [address] Prothromb Time International Ratio December 22, 2019 3:46pm 1.0 0.8-1.1 INTERPRETIVE NOTE:No anticoagulant: 0.8 to 1.1Standard dose anticoagulant: 2.0 to 3.0High dose anticoagulant: 2.5 to 3.5Critical INR: > 5.0 [facility] [address] [place] [address] Urine Color December 26, 2019 6:31pm Yellow Yellow [address] [address] Urine Appearance December 26, 2019 6:31pm Clear Clear [address] [address] Urine Specific [place] December 26, 2019 6:31pm 1.033 1.001-1.[address] Urine Leukocyte Esterase December 26, 2019 6:31pm Negative Negative [address] [place] [address] Urine pH December 26, 2019 6:31pm 5.0 pH 4.0-8.0 [facility] [address] [place] [address] Urine Protein December 26, 2019 6:31pm 100 mg/dL Negative [facility] [address] [place] [address] Urine Glucose December 26, 2019 6:31pm Negative mg/dL Negative [facility] [address] [place] [address] Urine Ketones December 26, 2019 6:31pm Negative mg/dL Negative [facility] [address] [place] [address] Urine Bilirubin December 26, 2019 6:31pm Negative Negative [facility] [address] [place] [address] Urine Nitrite December 26, 2019 6:31pm Negative Negative [facility] [address] [place] [address] Urine Occult Blood December 26, 2019 6:31pm Negative Negative [facility] [address] [place] [address] Urine WBC December 26, 2019 6:31pm 0-2 [facility] [address] [place] [address] Urine RBC December 26, 2019 6:31pm 0-2 /hpf [facility] [address] [place] [address] Urine Squamous Epithelial Cells December 26, 2019 6:31pm Rare [facility] [address] [place] [address] Urine Hyaline Casts December 26, 2019 6:31pm Rare None Seen [facility] [address] [place] [address] Urine Mucus December 26, 2019 6:31pm Few Negative [facility] [address] [place] [address] Urine Bacteria December 26, 2019 6:31pm Negative Negative [facility] [address] [place] [address] Sodium Level December 30, 2019 5:15pm 136 MMOL/L 136-145 [facility] [address] [place] [address] Plasma Sodium December 22, 2019 2:14pm 136 MMOL/L 136-145 [facility] [address] [place] [address] Potassium Level December 30, 2019 5:15pm 3.9 MMOL/L 3.5-5.1 [facility] [address] [place] [address] Plasma Potassium December 22, 2019 2:14pm 4.0 MMOL/L 3.5-5.1 [facility] [address] [place] [address] Chloride Level December 30, 2019 5:15pm 89 MMOL/L 98-[address] [address] Plasma Chloride December 22, 2019 2:14pm 89 MMOL/L 98-[address] [address] Carbon Dioxide Level December 30, 2019 5:15pm > 40 mmol/L 20- CRITICAL VALUE REPORTED AND READ BACK 30DEC[address] [address] Plasma Carbon Dioxide December 22, 2019 2:14pm > 40 MMOL/L 21-32 CRITICAL VALUE REPORTED AND READ BACK 22DEC[address] [address] Anion Gap December 30, 2019 5:15pm TNP Test not performedUnable to calculate. [address] [address] Calcium Level December 30, 2019 5:15pm 8.6 mg/dL 8.7-10.[address] [address] Plasma Calcium December 22, 2019 2:14pm 8.8 MG/DL 8.7-10.4 [facility] [address] [place] [address] Glucose Level December 30, 2019 5:15pm 198 MG/DL 74-[address] [address] Plasma Glucose Level December 22, 2019 2:14pm 114 MG/DL 74-106 [facility] [address] [place] [address] Blood Urea Nitrogen December 30, 2019 5:15pm 30 mg/gL 9-[address] [address] Plasma Blood Urea Nitrogen December 22, 2019 2:14pm 16 9-23 Note: New reference range and method effective 07/13/2019. [address] [address] Creatinine December 30, 2019 5:15pm 0.8 mg/dL 0.6-1.[address] [address] Plasma Creatinine December 22, 2019 2:14pm 0.6 MG/DL 0.6-1.1 Note: New reference range and method effective 07/13/2019. [facility] [address] [place] [address] Estimated GFR (Non- December 30, 2019 5:15pm 99.3 >60 Estimated GFR units = mL/min/1.73 m??IDMS traceable MDRD study equation in use effective 02/17/18 [facility] [address] [place] [address] Estimated GFR () December 30, 2019 5:15pm 120.3 >60 Estimated GFR units = mL/min/1.73 m??IDMS traceable MDRD study equation in use effective 02/17/18 [facility] [address] [place] [address] Total Protein November 30, 2019 4:33pm 6.1 g/dL 5.7-8.[address] [address] Total Protein December 25, 2019 8:34am 5.5 g/dL 5.7-8.[address] [address] Albumin December 25, 2019 8:34am 3.8 g/dL 3.2-4.[address] [address] Albumin November 30, 2019 4:33pm 4.3 g/dL 3.2-4.[address] [address] Direct Bilirubin December 25, 2019 8:34am 0.3 mg/dL 0.0-0.3 Delta: 0.1 on 11/30/19 [facility] [address] [place] [address] Direct Bilirubin November 30, 2019 4:33pm 0.1 mg/dL 0.0-0.[address] [address] Total Bilirubin December 25, 2019 8:34am 0.9 mg/dL 0-1.2 Delta: 0.4 on 11/30/[address] [address] Total Bilirubin November 30, 2019 4:33pm 0.4 mg/dL 0-1.[address] [address] Alkaline Phosphatase December 25, 2019 8:34am 52 U/L 46-[address] [place] [address] Alkaline Phosphatase November 30, 2019 4:33pm 57 U/L 46-[address] [address] Aspartate Amino Transf (AST/SGOT) November 30, 2019 4:33pm 24 U/L 13-[address] [address] Aspartate Amino Transf (AST/SGOT) December 25, 2019 8:34am 34 U/L 13-[address] [address] Alanine Aminotransfer ase (ALT/SGPT) November 30, 2019 4:33pm 39 U/L 7-40 Sulfasalazine may interfere with this assay, specimens should be drawn prior to dose. [address] [address] Alanine Aminotransfer ase (ALT/SGPT) December 25, 2019 8:34am 100 U/L 7-40 Sulfasalazine may interfere with this assay, specimens should be drawn prior to dose. [address] [address] Phosphorus Level December 30, 2019 5:15pm 2.9 MG/DL 2.4-5.1 Note: New reference range and method effective 07/13/2019. [address] [address] B-Type Natriuretic Peptide December 23, 2019 7:38am 39.6 pg/mL <38.[address] [address] Fasting Glucose December 30, 2019 6:25am 91 MG/DL 74-[address] [address] POC Capillary Blood Glucose (Chem) December 30, 2019 5:04pm 191 MG/DL 74-[address] [address] Hemoglobin A1c December 27, 2019 5:58am 6.2 % 4.0-5.6 NORMAL IS BELOW 5.7 %, CONFIRMED WITH REPEAT TESTINGPREDIABE TERRELL IS 5.7 - 6.4 %, CONFIRMED WITH REPEAT TESTINGDIABETES IS 6.5 % OR ABOVE, CONFIRMED WITH REPEAT TESTINGBASED ON 2013 ADA GUIDELINES [address] [address] Estimated Average Glucose December 27, 2019 5:58am [address] [address] Magnesium Level December 30, 2019 5:15pm 2.1 MG/DL 1.6-2.[address] [address] Prolactin December 22, 2019 3:46pm 4.7 ng/mL 2.1-17.7 Please note new reference ranges and method effective 07/13/2019.Norm ally Menstruating FemalesNon-Preg nant Females 2.8 - 29.2 ng/mL Females 9.7 - >200 ng/mLPostmenopa usal Females 1.8 - 20.3 ng/mLMales 2.1 - 17.7 ng/mL [address] [address] Troponin I December 22, 2019 8:08pm 0.02 ng/mL 0.00-0.45 [place] 1248102 Procalcitonin December 27, 2019 5:08am 0.04 ng/ml 0-0.05 Result Interpretations :PCT =<0.5ng/mL: Systemic infection not likelyPCT >0.5 and =<2.0 ng/mL: Moderate risk for progression to systemic infectionPCT >2.0 ng/mL: High risk for progression to systemic infectionPCT >=10 ng/mL High likelihood of severe sepsis or septic shock. [address] [address] Rheumatoid Factor November 30, 2019 4:33pm Negative NEGATIVE [address] [address] Anti-Nuclear Antibody Screen November 30, 2019 4:33pm Negative NEGATIVE [address] [address] Venous Blood pH December 30, 2019 6:25am 7.44 7.32-7.[address] [address] Venous Blood Partial Pressure CO2 December 30, 2019 6:25am 66 mmHg 41-[address] [address] Venous Blood Partial Pressure O2 December 30, 2019 6:25am 55 mmHg 30-[address] [address] Venous Blood Oxygen Saturation December 30, 2019 6:25am 90.1 % 60.0-80.00 VBG O2 saturation result is dependent upon location the specimen is drawn from.VBG O2 saturation drawn from a PA catheter is the equivalent of a SvO2 (mixed venous oxygenation saturation)VBG O2 saturation drawn from a central line is the equivalent of a ScvO2 (central venous oxygenation saturation) [facility] [address] [place] [address] Venous Blood HCO3 December 30, 2019 6:25am 44 mmol/L 22-[address] [address] FiO2 December 28, 2019 9:54am 60 [facility] [address] [place] [address] Blood Gas Liter Flow December 30, 2019 6:25am 10 L/M 0-20 [facility] [address] [place] [address] Blood Gas IPAP December 28, 2019 9:54am 20 cmH2O [facility] [address] [place] [address] Blood Gas EPAP December 28, 2019 9:54am 5 cmH2O [address] [address] Blood Gas Respiration Rate December 28, 2019 9:54am 25 [facility] [address] [place] [address] Blood Gas Comments December 30, 2019 6:25am Hfnc [facility] [address] [place] [address] Blood Gas Patient Temperature December 30, 2019 6:25am 36.6 C [facility] [address] [place] [address] Blood Gas Puncture Site December 28, 2019 9:54am Rta [address] [address] Proteinase 3 (PR3) November 30, 2019 4:33pm <1.0 AI Value Interpretation <1.0 AI: No Antibody Detected >or=1.0 AI: Antibody DetectedAutoant ibodies to proteinase-3 (IA-3) are accepted ascharacteristi c for granulomatosis with polyangiitis(GP A, Gera's), and are detectabale in 95% of thehistological ly proven cases. The cytoplasmic IFApattern, (c-ANCA), is based largely on autoantibody toPR-3 which serves as the primary antigen. Theseautoantibo dies are present in active disease.THIS TEST WAS PERFORMED AT:[facility] [address] [address]Eclxb lobito Cooper M.D., Ph.D.,Director of Laboratories [facility], [facility] [address] Myeloperoxida se Antibody November 30, 2019 4:33pm <1.0 AI Value Interpretation <1.0 AI: No Antibody Detected >or=1.0 AI: Antibody DetectedAutoant ibodies to myeloperoxidase (MPO) are commonlyassocia janet with the following small-vesselvas culitides: microscopic polyangiitis, polyarteritisno dosa, Churg-Karey syndrome, necrotizing andcrescentic glomerulonephri tis and occasionallygra nulomatosis with polyangiitis (GPA, Gera's). Theperinuclear IFA pattern, (p-ANCA) is based largely onautoantibody to myeloperoxidase which serves as theprimary antigen. These autoantibodies are present inactive disease. [facility], [place] [address] Microbiology Results Procedure Source Result Collection Date/Time Result Date/Time Result Comment Performing Site Influenza Screen Nares December 22, 2019 11:59pm December 22, 2019 9:11pm [facility] [address] [place] [address] Diagnostic Imaging Reports Report Dictated Date/Time Dictated By Status Radiology Report December 22, 2019 3:35pm Oly Fernandez MD completed [facility] [phone] [place] [address] XRAY REPORT Signed Patient: OLY DOLAN MR#: [id number] : 1960 Acct:[id number] Age/Sex: 59 / M ADM Date: 0 Loc: ER Attending Dr: Ordering Physician: Hector Coronado MD Date of Service: 12/22/19 Procedure(s): XR chest 1V portable Accession Number(s): [id number] cc: Hector Coronado MD~ HISTORY: Shortness of breath. TECHNIQUE: Single frontal view of the chest. COMPARISON: There is no prior study available for comparison. FINDINGS: Lungs: Patchy right medial lung base airspace opacity. Lungs otherwise appear clear. Pleura: Blunting of right costophrenic sulcus could reflect trace effusion. Left costophrenic sulcus not completely included. No pneumothorax. Heart and Mediastinum: Cardiomediastinal silhouette is within normal size limits. Bones: Partially visualized mixed lucent and sclerotic lesion in the left proximal humerus measuring at least 3.5 x 3.4 cm. Multilevel spondylosis. XR/XR chest 1V portable IMPRESSION: Patchy right medial lung base airspace opacity, which could reflect developing infectious or inflammatory process such as pneumonia in appropriate clinical context. Recommend chest radiographic follow-up after course of appropriate treatment to ensure resolution. Partially visualized mixed lucent and sclerotic lesion in the left proximal humerus measuring at least 3.5 x 3.4 cm. Recommend further evaluation with dedicated plain radiographs of the left humerus, versus comparison with prior imaging if later available. Result Flag: F/U Dictated and Electronically Signed by: Oly Fernandez MD ([id number]) Dictated Date and Time:12/22/19 1535 Technologist: Pauline Rothman Electrocardiogram December 22, 2019 3:18pm Harshal Mccain MD completed [facility] [phone] [place] [address] ELECTROCARDIOGRAPH REPORT Signed Patient: OLY DOLAN MR#: [id number] : 1960 Acct:[id number] Age/Sex: 59 / M ADM Date: 0 Loc: ER Attending Dr: Ordering Physician: Hector Coronado MD Date of Service: 12/22/19 Procedure(s): CA EKG 12 lead Accession Number(s): [id number] cc: Hector Coronado MD~ Technologist: [facility] ED Test Date: 2019-12-22 Pat Name: OLY DOLAN Department: Room: Gender: M Surgical Nurse: Leigh : 1960 Requested By: Hector Oconnell Order Number: [id number] Reading MD: Adán Caputo MD Measurements Intervals [place] Rate: 99 P: IA: 0 QRS: -11 QRSD: 95 T: 65 QT: 324 QTc: 417 Interpretive Statements ATRIAL FIBRILLATION WITH ABERRANT CONDUCTION OR VENTRICULAR PREMATURE COMPLEXES LOW QRS VOLTAGE IN PRECORDIAL LEADS [QRS DEFLECTION < 1.0 mV IN CHEST LEADS] ABNORMAL RHYTHM ECG Electronically Signed On 12-22-2019 16:27:53 EST by Adán Caputo MD Dictated By: Adán Caputo MD Signed By: 12/22/19 1627 Dictated Date and Time: 12/22/19 1518 Transcribed By: Adán Caputo MD Radiology Report December 26, 2019 10:43am J Ryan Mak MD completed [facility] [phone] [place] [address] REPORT Signed Patient: Oly Dolan MR#: [id number] : 1960 Acct:[id number] Age/Sex: 59 / M ADM Date: 0 Loc: A5 A519-[address]: Kimber Coello MD Ordering Physician: Kimber Coello MD Date of Service: 12/26/19 Procedure(s): CT angio chest PE protocol Accession Number(s): [id number] cc: Kimber Coello MD~ INDICATION: Shortness of breath. Hypoxia. Initial visit Examination: CTA chest with contrast TECHNIQUE: CT from the thoracic inlet to the upper abdomen following the uneventful intravenous administration of contrast using the departmental pulmonary artery CTA protocol. Sagittal and coronal maximum intensity projection (3D MIP) reconstructed images were generated from the original data set. One or more of the following individual dose optimization techniques were used including; automated exposure control, iterative reconstruction, and mA/kV are adjusted according to patient size. Contrast: Administered 93.3 ml of OMNIPAQUE 350 mg/ml using 20 gauge via left forearm. Delivered 50.0 ml of saline. COMPARISON: None. FINDINGS: Exam quality: There is an adequate contrast bolus to the pulmonary arterial tree. CT pulmonary angiogram: There are areas of decreased enhancement noted involving one of the lingula pulmonary arteries as well as descending left pulmonary artery and descending right pulmonary artery (images #43, 49, series 7). Difficult to completely exclude pulmonary embolus. VQ scan could be helpful. There is no CT evidence of right heart strain. Main pulmonary trunk is enlarged which may represent underlying pulmonary arterial hypertension. Lungs and pleura: 4 mm lingular pulmonary nodule noted in (image #106, series 6) disease. Calcified 4 mm granuloma in the left lower lobe. There is a small area of consolidation involving the superior segment of the right lower lobe which could represent atelectasis. Pneumonia cannot be excluded. Scattered focal pleural plaquing of the right pleura noted. There is no pneumothorax. No pleural effusion or pleural thickening. Heart and pericardium: The heart is normal in size. Mediastinum and bambi: The thoracic aorta is normal in caliber. There is no mediastinal, hilar, or axillary adenopathy by CT size criteria. There is prominent right infrahilar lymph node measuring 1 cm in the short axis. This could be reactive. Visualized thyroid demonstrates small calcification in lung the posterior left thyroid gland. Ultrasound may be helpful. Tracheobronchial tree: The trachea and major bronchi are patent. Visualized upper abdomen: Fatty infiltration of the liver. No focal abnormality is seen in the partially visualized upper liver. The visualized adrenal glands are unremarkable. Bones: No destructive osseous lesion or thoracic compression fracture. CT/CT angio chest PE protocol IMPRESSION: 1. Subtle areas of decreased enhancement involving several pulmonary arteries. Pulmonary emboli are difficult to completely exclude. VQ scan may be helpful. 2. Focal consolidation within the superior segment of the right lower lobe which may represent 3. 4 mm lingular pulmonary nodule. CT scan of the chest in 12 months recommended if patient at high risk for cancer. These findings were discussed with A5 nurse Lissy on 12/26/2019 at 10:42 AM. <6 mm, Solid Single Nodule recommendation: Low Risk patient: No routine follow-up. High Risk patient: Optional CT chest without contrast at 12 months. Please note that certain patients at high risk with suspicious nodule morphology, upper lobe location, or both may warrant 12 month follow-up. Reference: Guidelines for Management of Incidental Pulmonary Nodules Detected on CT Images: From the Fleischner Society 2017. Dictated and Electronically Signed by: Obdulio Davis MD ([id number]) Dictated Date and Time:12/26/19 1043 Technologist: BRODERICK Hobson, CT Radiology Report December 26, 2019 10:47am J Ryan Mak MD completed [facility] [phone] [place] [address] ULTRASOUND REPORT Signed Patient: Oly Dolan MR#: [id number] : 1960 Acct:[id number] Age/Sex: 59 / M ADM Date: 0 Loc: A5 A519-[address]: Kimber Coello MD Ordering Physician: Kimber Coello MD Date of Service: 12/26/19 Procedure(s): US venous doppler LE BI Accession Number(s): [id number] cc: Kimber Coello MD~ History: Bilateral leg swelling Examination: Ultrasound bilateral leg venogram Findings: Real time and static ultrasound images of the deep venous system of the lower extremity were obtained. These reveal normal compressibility extending from the level of the common femoral to the popliteal vein. There is no sonographic evidence of deep venous thrombosis. Doppler evaluation, including color and spectral analysis, shows normal respiratory phasicity and augmentation with compression. US/US venous doppler LE BI Impression: No evidence of deep vein thrombus of both legs Dictated and Electronically Signed by: Obdulio Davis MD ([id number]) Dictated Date and Time:12/26/19 1047 Technologist: Lopez Roque Radiology Report December 26, 2019 3:21pm Kourtney Mak MD completed [facility] [phone] [place] [address] XRAY REPORT Signed Patient: Oly Dolan MR#: [id number] : 1960 Acct:[id number] Age/Sex: 59 / M ADM Date: 0 Loc: A5 A519-[address]: Kimber Coello MD Ordering Physician: Kimber Coello MD Date of Service: 12/26/19 Procedure(s): XR chest 2V Accession Number(s): [id number] cc: Kimber Coello MD~ EXAMINATION: Chest, two views HISTORY: Shortness of breath. COMPARISON: 12/22/2019 FINDINGS: PA and lateral views of the chest were obtained. Lungs: Emphysema. Clear. No lobar consolidation or CHF. Pleura: No pleural effusion or pneumothorax Heart and mediastinum: Normal Bones/soft tissues: Degenerative changes of the spine. Partially visualized sclerotic density within the left humeral neck similar to the prior study. This may represent bone infarct or a enchondroma. XR/XR chest 2V IMPRESSION: No acute cardiopulmonary disease Dictated and Electronically Signed by: Obdulio Davis MD ([id number]) Dictated Date and Time:12/26/19 152 Technologist: Lillian Breaux Radiology Report December 26, 2019 3:21pm Kourtney Mak MD completed [facility] [phone] [place] [address] NUCLEAR MEDICINE REPORT Signed Patient: Oly Dolan MR#: [id number] : 1960 Acct:[id number] Age/Sex: 59 / M ADM Date: 0 Loc: A5 A519-[address]: Kimber Coello MD Ordering Physician: Kimber Coello MD Date of Service: 12/26/19 Procedure(s): NM pul vent and perfuse Accession Number(s): [id number] cc: Kimber Coello MD~ EXAMINATION: Ventilation/Perfusion (V/Q) Study. INDICATION: Abnormal CT scan. TECHNIQUE: Initial ventilation imaging was performed in multiple projections while the patient inhaled from a chamber containing 41 mCi of aerosolized Tc- 99m labeled DTPA. Perfusion imaging was then performed in the same projections after the intravenous injection of 4.5 mCi Tc-99m labeled macroaggregated albumin (MAA). Compared to CT scan dated 12/26/2019 FINDINGS: The study is technically satisfactory. There is moderate to marked amount of clumping of the aerosolized DTPA limiting the ventilation scan. No mismatch of ventilation or perfusion is seen. NM/NM pul vent and perfuse IMPRESSION: Findings consistent with low probability for pulmonary embolus. Please note that a low probability study carries a 20% chance that there is a pulmonary embolism. Dictated and Electronically Signed by: Obdulio Davis MD ([id number]) Dictated Date and Time:12/26/19 152 Technologist: KIMMY Bonilla Electrocardiogram December 26, 2019 4:05pm Lenora Barr MD completed [facility] [phone] [place] [address] ELECTROCARDIOGRAPH REPORT Signed Patient: Oly Dolan MR#: [id number] : 1960 Acct:[id number] Age/Sex: 59 / M ADM Date: 0 Loc: CCU CCU-[address]: Benny Raymundo MD Ordering Physician: Benny Raymundo MD Date of Service: 12/26/19 Procedure(s): CA EKG 12 lead Accession Number(s): [id number] cc: Benny Raymundo MD~ Technologist: [facility] Test Date: 2019-12-26 Pat Name: Oly Dolan Department: Room: [facility] Gender: M Surgical Nurse: Santana : 1960 Requested By: Benny Kumar Order Number: [id number] Reading MD: MOMO RUEDA Measurements Intervals [place] Rate: 117 P: IA: 0 QRS: -14 QRSD: 93 T: 73 QT: 285 QTc: 398 Interpretive Statements ATRIAL FIBRILLATION WITH RAPID VENTRICULAR RESPONSE LOW QRS VOLTAGE IN PRECORDIAL LEADS Electronically Signed On 12-26-2019 18:00:05 EST by MOMO RUEDA Dictated By: Momo Rueda MD Signed By: 12/26/19 1800 Dictated Date and Time: 12/26/19 1605 Transcribed By: Momo Rueda MD Radiology Report December 27, 2019 7:32am Stacy Krause MD completed [facility] [phone] [place] [address] XRAY REPORT Signed Patient: Oly Dolan MR#: [id number] : 1960 Acct:[id number] Age/Sex: 59 / M ADM Date: 0 Loc: CCU CCU-[address]: Benny Raymundo MD Ordering Physician: John Rick IV, MD Date of Service: 12/27/19 Procedure(s): XR chest 1V portable Accession Number(s): [id number] cc: John Rick IV, MD~ INDICATION: COPD exacerbation. TECHNIQUE: Single frontal view of the chest. COMPARISON: 12/26/2019 FINDINGS: Monitoring leads are present. The heart is normal sized. The mediastinum is unremarkable. There is no focal lung consolidation or infiltrate. There is no pneumothorax. The bones are unremarkable. XR/XR chest 1V portable IMPRESSION: No acute chest pathology. Dictated and Electronically Signed by: Jimi Win MD ([facility]) Dictated Date and Time:12/27/19 0732 Technologist: RT Racquel Beal Radiology Report December 28, 2019 7:46am Sanjay Aguilar MD completed [place] [phone] [place] [address] XRAY REPORT Signed Patient: Oly Dolan MR#: [id number] : 1960 Acct:[id number] Age/Sex: 59 / M ADM Date: 0 Loc: CCU CCU-[address]: Benny Raymundo MD Ordering Physician: Erum Means MD Date of Service: 12/28/19 Procedure(s): XR chest 1V portable Accession Number(s): [id number] cc: Erum Means MD~ HISTORY: COPD TECHNIQUE: Single frontal view of the chest. COMPARISON: Chest dated 12/27/2019 at 6:15 AM FINDINGS: Lines/tubes: None. Lungs: Diminished lung volumes with minimal basilar atelectatic changes stable from prior study. Pleura: There is no evidence of pleural effusion or pneumothorax. Heart and mediastinum: The heart and the mediastinum are unremarkable for this technique. Bones: No acute fracture. XR/XR chest 1V portable IMPRESSION: Diminished lung volumes with minimal basilar atelectasis similar to prior study. No discrete lobar consolidation, pulmonary edema or significant change. Dictated and Electronically Signed by: Jeff Grace MD ([id number]) Dictated Date and Time:12/28/19 0746 Technologist: Nathaly Tellez Radiology Report December 29, 2019 7:58am Sherrill Fairbanks MD completed [place] [phone] [place] [address] XRAY REPORT Signed Patient: Oly Dolan MR#: [id number] : 1960 Acct:[id number] Age/Sex: 59 / M ADM Date: 0 Loc: CCU CCU-[address]: Benny Raymundo MD Ordering Physician: Erum Means MD Date of Service: 12/29/19 Procedure(s): XR chest 1V portable Accession Number(s): [id number] cc: Erum Means MD~ Portable Chest AP: History: COPD exacerbation Time: 5:59 AM on 12/29/2019 There is by basilar subsegmental atelectasis. There is no pulmonary consolidation, vascular congestion or mass. The heart, mediastinum and bambi are unremarkable, without evidence of adenopathy. There is no pleural effusion. The bony thorax is unremarkable. No significant change since 12/28/2019. XR/XR chest 1V portable IMPRESSION: Bibasilar subsegmental atelectasis. Dictated and Electronically Signed by: Magdi Hirsch MD ([id number]) Dictated Date and Time:12/29/19 0758 Technologist: Nathaly Tellez Radiology Report December 30, 2019 7:55am C Magdi Benitez MD completed [facility] [phone] [place] [address] XRAY REPORT Signed Patient: Oly Dolan MR#: [id number] : 1960 Acct:[id number] Age/Sex: 59 / M ADM Date: 0 Loc: CCU CCU-[address]: Benny Raymundo MD Ordering Physician: Erum Means MD Date of Service: 12/30/19 Procedure(s): XR chest 1V portable Accession Number(s): [id number] cc: Erum Means MD~ EXAMINATION: Portable CHEST x-ray. INDICATION: COPD exacerbation, Shortness of breath. TECHNIQUE: AP portable chest x-ray obtained on 12/30/2019 at 644 hours. FINDINGS: HEART & VASCULARITY: There are normal cardiac size and pulmonary vascularity. LUNGS: Horizontal platelike atelectasis is seen in right lung base. Oblique platelike atelectasis is seen in lateral left lung base. No pneumothorax is seen. LINES & SUPPORTING TUBES: None. XR/XR chest 1V portable IMPRESSION: Since previous chest x-ray obtained on 12/29/2019 at 559 hours, there are: 1. Unchanged oblique platelike atelectasis in the lateral left lung base. 2. Interval development of horizontal platelike atelectasis in the right lung base. Dictated and Electronically Signed by: Eli Fairbanks MD ([id number]) Dictated Date and Time:12/30/19 0755 Technologist: Alicia Orellana, R Pulmonary Function Test January 25 4:37pm Kourtney Jett MD completed [facility] [phone] [place] [address] PULMONARY FUNCTION TEST Signed Patient: OLY DOLAN MR#: [id number] : 1960 Acct:[id number] Age/Sex: 59 / M ADM Date: 0 Loc: BHRESP Attending Dr: Johnie Frazier MD Ordering Physician: Johnie Frazier MD Date of Service: 01/25/20 Procedure(s): RT Pulmonary Function Test Accession Number(s): cc: Johnie Frazier MD~ Technologist: Mary Ellen Morrow CRT Reason for Visit: PUL HTN Interpretation: PFT shows severe obstruction, positive bronchoreversibility, normal MVV, mild reduction lung volumes, decreased ERV, positive hyperinflation, moderate decrease DLCO. This is consistent with combined ventilatory defect, namely GOLD III (severe) COPD with mild restrictive lung disease due to obesity. 6MWD: resting hypoxia (82%RA), requiring 8L O2 (91%8L O2), decreased exercise capacity (600 ft), Jaylin 0--->5. c/w PFTs 03/2017, mild decrease in FEV1 and DLCO; significant increase in oxygen requirement. Dictated By: Johnie Frazier MD Signed By: <Electronically signed by Johnie Frazier MD> 01/31/20 0816 Dictated Date and Time: 01/25/20 1637 Transcribed By: Marion Allen RRT Advance Directives Advance Directive Response Recorded Date/ Time Do you have a Health Care Proxy Declined December 29, 2019 11:33pm MOLST Form Reviewed/Completed With Patient No December 22, 2019 7:57pm Chief Complaint and Reason for Visit Chief Complaint Image Encounter Image Encounter Appointment Image Encounter Image Encounter Image Encounter Appointment I27.20 Non-Appointment Image Encounter Photogrammetrist Encounter Non-Appointment Non-Appointment Non-Appointment Image Encounter Image Encounter Photogrammetrist Encounter Appointment G47.33 Photogrammetrist Encounter COPD EXACERBATION Photogrammetrist Encounter Photogrammetrist Encounter Photogrammetrist Encounter Photogrammetrist Encounter Non-Appointment Appointment J44.9 Photogrammetrist Encounter Non-Appointment Image Encounter Non-Appointment PULMONARY HTN Appointment J44.9 Non-Appointment Image Encounter Appointment Appointment G47.33 Image Encounter Image Encounter Image Encounter Appointment Non-Appointment Image Encounter Appointment Appointment J44.9 Appointment COPDFU Reason for Visit Atrial flutter H/O cardiac radiofrequency ablation Chronic respiratory failure Obstructive sleep apnea Body mass index (BMI) of 45.0 to 49.9 in adult COPD, group D, by GOLD 2017 classification Chronic respiratory failure with hypercapnia Chronic respiratory failure with hypoxia Dyspnea on exertion Obstructive sleep apnea syndrome, severe Pulmonary hypertension Encounters Encounter Location(s) Arrival/Admit Date Discharge/Depart Date Provider(s) Registered Physician/Provi leticia Office Visit [facility]- November 15, 2019 12:00am null Registered Physician/Provi leticia Office Visit [facility]- November 16, 2019 12:00am null Registered Physician/Provi leticia Office Visit [facility]- November 17, 2019 12:00am null Registered Physician/Provi leticia Office Visit [facility]- November 19, 2019 12:00am null Registered Physician/Provi leticia Office Visit [facility]- November 20, 2019 12:00am null Registered Physician/Provi leticia Office Visit [facility]- November 29, 2019 12:00am null Registered Physician/Provi leticia Office Visit [facility]- November 30, 2019 12:00am null Registered Referred [facility] Internal Medicine November 30, 2019 3:00pm Kourtney Jett MD Registered Referred [facility] Pulmonary November 30, 2019 4:10pm Kourtney Jett MD Registered Physician/Provi leticia Office Visit [facility]- December 07, 2019 12:00am null Registered Physician/Provi leticia Office Visit [facility]- December 08, 2019 12:00am null Registered Physician/Provi leticia Office Visit [facility]- December 12, 2019 12:00am null Registered Physician/Provi leticia Office Visit [facility]- December 13, 2019 12:00am null Registered Physician/Provi leticia Office Visit [facility]- December 14, 2019 12:00am null Registered Physician/Provi leticia Office Visit [facility]- December 15, 2019 12:00am null Registered Physician/Provi leticia Office Visit [facility]- December 16, 2019 12:00am null Registered Physician/Provi leticia Office Visit [facility]- December 19, 2019 12:00am null Registered Physician/Provi leticia Office Visit [facility]- December 20, 2019 12:00am null Registered Physician/Provi leticia Office Visit [facility]- December 21, 2019 12:00am null Registered Referred [facility] Internal Medicine December 21, 2019 11:15am Kourtney Jett MD Registered Physician/Provi leticia Office Visit [facility]- December 22, 2019 12:00am null Discharged Inpatient [facility] December 22, 2019 4:39pm December 30, 2019 9:29pm Breanne Zapata MD Registered Physician/Provi leticia Office Visit [facility]- December 23, 2019 12:00am null Registered Physician/Provi leticia Office Visit [facility]- December 29, 2019 12:00am null Registered Physician/Provi leticia Office Visit [facility]- January 10, 2020 12:00am null Registered Physician/Provi leticia Office Visit [facility]- January 11, 2020 12:00am null Registered Physician/Provi leticia Office Visit [facility]- January 12, 2020 12:00am null Registered Physician/Provi leticia Office Visit [facility]- January 13, 2020 12:00am null Registered Referred [facility] Internal Medicine January 13, 2020 11:30am Kourtney Jett MD Registered Physician/Provi leticia Office Visit [facility]- January 17, 2020 12:00am null Registered Physician/Provi leticia Office Visit [facility]- January 20, 2020 12:00am null Registered Physician/Provi leticia Office Visit [facility]- January 21, 2020 12:00am null Registered Physician/Provi leticia Office Visit [facility]- January 25, 2020 12:00am null Registered Referred [facility] January 25, 2020 4:35pm Kourtney Jett MD Registered Physician/Provi leticia Office Visit [facility]- January 27, 2020 12:00am null Registered Referred [facility] Internal Medicine January 27, 2020 10:30am Kourtney Jett MD Registered Physician/Provi leticia Office Visit [facility]- February 01, 2020 12:00am null Registered Physician/Provi leticia Office Visit [facility]- February 03, 2020 12:00am null Registered Physician/Provi leticia Office Visit [facility]- February 17, 2020 12:00am null Registered Physician/Provi leticia Office Visit [facility]- February 29, 2020 12:00am null Registered Referred [facility] Internal Medicine February 29, 2020 2:30pm Kourtney Jett MD Registered Physician/Provi leticia Office Visit [facility]- March 14, 2020 12:00am null Registered Physician/Provi leticia Office Visit [facility]- March 16, 2020 12:00am null Registered Physician/Provi leticia Office Visit [facility]- March 23, 2020 12:00am null Registered Physician/Provi leticia Office Visit [facility]- March 30, 2020 12:00am null Registered Referred [facility] Internal Medicine March 30, 2020 2:00pm Kourtney Jett MD Registered Physician/Provi leticia Office Visit [facility]- March 31, 2020 12:00am null Registered Physician/Provi leticia Office Visit [facility]- May 08, 2020 12:00am null Registered Physician/Provi leticia Office Visit [facility]- May 10, 2020 12:00am null Registered Physician/Provi leticia Office Visit [facility]- May 11, 2020 12:00am null Registered Referred [facility] Internal Medicine May 11, 2020 8:00am Kourtney Jett MD Registered Physician/Provi leticia Office Visit [facility]- May 18, 2020 12:00am null Registered Inpatient [facility] Pulmonary August 29, 2020 9:10am August 29, 2020 10:43am Kourtney Jett MD Recent Diagnosis Onset Date Atrial flutter H/O cardiac radiofrequency ablation Chronic respiratory failure Obstructive sleep apnea Body mass index (BMI) of 45.0 to 49.9 in adult COPD, group D, by GOLD 2017 classificati on Chronic respiratory failure with hyperca pnia Chronic respiratory failure with hypoxia Dyspnea on exertion Obstructive sleep apnea syndrome, severe Pulmonary hypertension Assessments Diagnosis Onset Date Resolution Status Atrial flutter acute H/O cardiac radiofrequency ablation acute Chronic respiratory failure chronic 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 Body mass index (BMI) of 45.0 to 49.9 in adult chronic COPD, group D, by GOLD 2017 classification chronic Chronic respiratory failure with hypercapnia chronic Chronic respiratory failure with hypoxia chronic Dyspnea on exertion chronic Obstructive sleep apnea syndrome, severe chronic Pulmonary hypertension chron ic Family History Relationship Condition Age at Onset Recorded Date/T arnel father Malignant neoplasm of bone Unknown mother Chronic obstructive pulmonary disease Unk nown Functional Status Observation Response Date Recorded Physical Dependency Level Independent Andreasuar y 2019 12:09pm Goals Goals may be documented in an alternate section. Immunizations Immunization Event Date Not Given Reason Dose Number Slab Off [employer] Tender Lot Number Vaccine Information Statement (VIS) Detail Quadravalent Influenza Vaccine August 29, 2020 [id number] Mental Status Observation Response Date Recorded Comprehension Ability Understands Concepts Andreasua ry 2019 10:23am Medical Equipment No Medical Equipment Information available Insurance Providers Guarantor OLY DOLAN Address [address] [place] [address] Contact Info. Home Phone: Payer Policy Id Coverage Id Subscriber's Name Subscriber Id Effective Date Expiration Date [facility] [id number] OLY DOLAN [id number] BLUE [employer] OUT OF STATE PLAN [id number] OLY DOLNA [id number] [employer] PPO [id number] Anurag Owens [id number] SELF PAY Plan of Treatment Future Tests Future scheduled test information is unavailable Pending Tests Pending diagnostic test information is unavailable Future Visits Future appointment information is unavailable Referrals to Other Providers Reason for Referral Referral Start Date Provider Provider Contact Information Provider Address Gwen Ramos MD Work Phone: [address] [address] Future Procedures Future procedure information is unavailable Future Medications Future medication information is unavailable Patient Instructions Patient instructions are unavailable Social History Smoking Status Status Date of Observation Ex-smoker (finding) August 29, 2020 9:33am Observation Status Observation Response Date of Response Smoking Status Former smoker August 29, 2020 9:33am How long ago did patient quit smoking 30 August 29, 2020 9:33am Tobacco type cigarettes August 29, 2020 9:33am Smoking packs per day 1.5 August 29, 2020 9:33am Smoking cigarettes per day 30.0 Septe mber 2019 9:33am Years smoked 30 August 29, 2020 9:33am Smoking pack-years 45.00 August 9:33am NHANES social isolation score Se ptember 2019 9:33am Assigned Sex Male Vital Signs Vital Reading Result Reference Range Collection Date/Time Height 71 [in_i] November 30, 2019 3:04pm Weight 151.95 kg November 30, 2019 3:04pm Heart Rate 87 /min 50-110 November 30, 2019 3:04pm Respiratory rate 18 /min -November 302018 3:04pm Oxygen saturation by Pulse oximetry 91 % 95-100 November 30, 2019 3:04pm BP Systolic 122 mm[Hg] 100-180 November 30, 2019 3:04pm BP Diastolic 80 mm[Hg] 70-85 November 30, 2019 3:04pm BMI (Body Mass Index) 46.72 kg/m2 [facility] 2018 3:04pm Height 71 [in_i] December 21, 020 11:44am Weight 150.59 kg December 21, 020 11:44am Heart Rate 84 /min 50-110 December 21, 2 020 11:44am Respiratory rate 20 /min -December 11:44am Oxygen saturation by Pulse oximetry 91 % 95-100 December 21, 2019 1 1:44am BP Systolic 124 mm[Hg] 100-180 December 21, 2 020 11:44am BP Diastolic 78 mm[Hg] 70-85 December 21, 2 020 11:44am BMI (Body Mass Index) 46.3 kg/m2 Decuar y 2019 11:44am Height 71 [in_i] December 29, 2 020 6:00am Weight 157.30 kg December 29, 2 020 6:00am Body Temperature 97.6 [degF] 96.5-101.5 December 7:22pm Heart Rate 82 /min 50-110 December 30, 2 020 7:22pm Respiratory rate 21 /min -December 7:22pm Oxygen saturation by Pulse oximetry 96 % 95-100 December 30, 2019 7 :22pm BP Systolic 120 mm[Hg] 100-180 December 30, 2 020 7:22pm BP Diastolic 66 mm[Hg] 70-85 December 30, 2 020 7:22pm BMI (Body Mass Index) 48.3 kg/m2 [facility] 6:00am Height 71 [in_i] January 13, 2020 11:39am Weight 146.96 kg January 13, 2020 11:39am Heart Rate 65 /min 50-110 January 13, 2020 11:39am Respiratory rate 20 /min -January 132019 11:39am Oxygen saturation by Pulse oximetry 93 % 95-100 January 13, 2020 11:39am BP Systolic 128 mm[Hg] 100-180 January 13, 2020 11:39am BP Diastolic 70 mm[Hg] 70-85 January 13, 2020 11:39am BMI (Body Mass Index) 45.19 kg/m2 2019 11:39am Height 71 [in_i] December 29, 2 020 6:00am Height 71 [in_i] January 27, 2020 11:11am Weight 144.24 kg January 27, 2020 11:11am Heart Rate 72 /min 50-110 January 27, 2020 11:11am Respiratory rate 20 /min -January 272019 11:11am Oxygen saturation by Pulse oximetry 91 % 95-100 January 27, 2020 11:11am BP Systolic 110 mm[Hg] 100-180 January 27, 2020 11:11am BP Diastolic 84 mm[Hg] 70-85 January 27, 2020 11:11am BMI (Body Mass Index) 44.35 kg/m2 [facility] 2019 11:11am Height 71 [in_i] December 29, 2 020 6:00am Height 71 [in_i] December 29, 2 020 6:00am Height 71 [in_i] December 29, 2 020 6:00am Height 71 [in_i] May 11, 2020 7:57am Weight 137.89 kg May 11, 2020 7:57am Heart Rate 84 /min 50-110 May 11, 2020 7:57am Respiratory rate 18 /min -May 11, 2020 7:57am Oxygen saturation by Pulse oximetry 95 % 95-100 May 11, 2020 7:57 am BP Systolic 128 mm[Hg] 100-180 May 11, 2020 7:57am BP Diastolic 72 mm[Hg] 70-85 May 11, 2020 7:57am BMI (Body Mass Index) 42.4 kg/m2 May 012019 7:57am Height 71 [in_i] December 29 020 6:00am Height 71 [in_i] August 29, 2020 9:33am Weight 148.83 kg August 29, 2020 9:33am Heart Rate 88 /min 50-110 August 29, 2020 9:33am Respiratory rate 16 /min 12-20 August 022019 9:33am Oxygen saturation by Pulse oximetry 92 % 95-100 August 29, 2020 9:33am BP Systolic 140 mm[Hg] 100-180 August 29, 2020 9:33am BP Diastolic 82 mm[Hg] 70-85 August 29, 2020 9:33am BMI (Body Mass Index) 45.7 kg/m2 2019 9:33am
--- OUTSIDE RECORDS SUMMARY | 2024-01-12 17:49 | XMS_ITS | Continuity of Care Document ---
Author Name Unknown Address [address] [place] [address] Phone Organization [facility] Address [address] [place] [address] Phone Support Name Relationship Address Phone St Shashank Yuan [address] [place] [address] [phone] Attending Provider Unknown Unavailab le [id number] Attending Provider Unknown Unavailab le [id number] Attending Provider Unknown Unavailab le Johnie Frazier Attending Provider [address] [place] [address] [id number] Attending Provider Unknown Unavailab le Rachel Hidalgo Primary Care Provider [address] [place] [address] Hector [place] [address] Brad Slaughter Admit Provider [address] [place] [address] Allergies, Adverse Reactions, Alerts No known allergies. Medications Medication Status Dose Units Route Sig Qty Days Start Date End Date Instructions Prednisone Active 0 Route .COMPL EX December 22, 2019 3:27pm Taper as directed over ten days, then discontinue Cefpodoxime Active 200 MG ORAL Twice A Day December 22, 2019 3:27pm for 7 days Diltiazem Hcl Active 240 MG ORAL DAILY Dec 3:27pm Metoprolol Succinate Active 100 MG ORAL DAILY December 22, 2019 3:27pm Benzonatate Active 100 MG ORAL 3 TIMES A DAY December 22, 2019 3:27pm Codeine-Guaifene sin Active 10 ML ORAL Q4H December 22, 2019 3:27pm Hydrochlorothiaz carlos Active 25 MG ORAL DAILY December 22, 2019 3:27pm Oxycodone Active 5 MG ORAL Q4H December 22, 2019 3:27pm Tiotropium [place] Active 18 MCG INHALATION DAILY December 22, 2019 3:27pm Roflumilast Active 500 MCG ORAL DAILY 2019 3:27pm Apixaban Active 5 MG ORAL Twice A Day December 22, 2019 3:27pm Azelastine Active 2 SPRAY NASAL DAILY 2019 3:49pm Albuterol Sulfate Active 2 PUFF INHALATION Q4H December 22, 2019 3:49pm Budesonide-Formo terol Active 2 PUFF INHALATION Twice A Day December 22, 2019 3:49pm Omeprazole Active 20 MG ORAL DAILY 2019 4:17pm Albuterol Sulfate Active 2 PUFF INHALATION Q4H December 22, 2019 4:17pm Vitamin E Active 1000 UNIT ORAL DAILY December 22, 2019 4:19pm Acetaminophen Active 650 MG ORAL Q6H Dec 4:19pm Vitamin B Complex Active 1 TAB ORAL DAILY December 22, 2019 4:19pm Multivitamin-Iro n-Folic Acid Active 1 TAB ORAL DAILY December 22, 2019 4:19pm Problems Active Problems Medical Problem Onset Date Status Obstructive sleep apnea Active Atrial flutter Active H/O cardiac radiofrequency ablation Active Acute exacerbation of chronic obstructive pulmon chu disease Active Relevant Diagnostic Tests and/or Laboratory Data Laboratory Results Test Date/Time Result Interpretation Reference Range Result Comment Performing Site White Blood Count 21.3 x10^3/uL 3.8-11.3 [facility] [address] [place] [address] Red Blood Count 4.85 x10^6/uL 4.7-6.1 [facility] [address] [place] [address] Hemoglobin 13.7 g/dL 13.0-17.0 [facility] [address] [place] [address] Hematocrit 43.3 % 38.0-49.0 [facility] [address] [place] [address] Mean Corpuscular Volume 89.3 fL 80-100 [facility] [address] [place] [address] Mean Corpuscular Hemoglobin 28.2 pg 26.7-33.0 [facility] [address] [place] [address] Mean Corpuscular Hemoglobin Concent 31.6 g/dL 31.6-35.[address] [address] RDW Coefficient of Variation 15.8 % 11.5-14.[address] [address] Platelet Count 256 x10^3/uL 150-[address] [address] Mean Platelet Volume 9.8 fL 7.4-13.[address] [address] Prothrombin Time 11.8 Sec 9.4-12.[address] [address] Prothromb Time International Ratio 1.0 0.8-1.1 INTERPRETIVE NOTE:No anticoagulant: 0.8 to 1.1Standard dose anticoagulant: 2.0 to 3.0High dose anticoagulant: 2.5 to 3.5Critical INR: > 5.0 [place] [address] Plasma Sodium 136 MMOL/L 136-145 [place] [address] Plasma Potassium 4.0 MMOL/L 3.5-5.1 [place] [address] Plasma Chloride 89 MMOL/L 98-107 [place] [address] Plasma Carbon Dioxide > 40 MMOL/L 21-32 CRITICAL VALUE REPORTED AND READ BACK 22Dec[address] [address] Anion Gap TNP Test not performedUnable to calculate. [address] [address] Plasma Calcium 8.8 MG/DL 8.7-10.4 [place] [address] Plasma Glucose Level 114 MG/DL 74-[address] [address] Plasma Blood Urea Nitrogen 16 9-23 Note: New reference range and method effective 07/13/2019. [address] [address] Plasma Creatinine 0.6 MG/DL 0.6-1.1 Note: New reference range and method effective 07/13/2019. [address] [address] Estimated GFR (Non- 138.4 >60 Estimated GFR units = mL/min/1.73 m??IDMS traceable MDRD study equation in use effective 02/17/[address] [address] Estimated GFR () 167.7 >60 Estimated GFR units = mL/min/1.73 m??IDMS traceable MDRD study equation in use effective 02/17/[address] [address] Total Protein 6.1 g/dL 5.7-8.2 [place] [address] Albumin 4.3 g/dL 3.2-4.[address] [address] Direct Bilirubin 0.1 mg/dL 0.0-0.3 [place] [address] Total Bilirubin 0.4 mg/dL 0-1.2 [place] [address] Alkaline Phosphatase 57 U/L 46-116 [place] [address] Aspartate Amino Transf (AST/SGOT) 24 U/L 13-40 [place] [address] Alanine Aminotransfer ase (ALT/SGPT) 39 U/L 7-40 Sulfasalazine may interfere with this assay, specimens should be drawn prior to dose. [place] [address] B-Type Natriuretic Peptide 33.5 pg/mL <38.8 [place] [address] Prolactin 4.7 ng/mL 2.1-17.7 Please not e new reference ranges and method effective 07/13/2019.Nancy lly Menstruating FemalesNon-Pregn ant Females 2.8 - 29.2 ng/mL Females 9.7 - >200 ng/mLPostmenopau vidhya Females 1.8 - 20.3 ng/mLMales 2.1 - 17.7 ng/mL [place] [address] Troponin I 0.02 ng/mL 0.00-0.45 [place] [address] Procalcitonin 0.07 ng/ml 0-0.05 Result Interpretations: PCT =<0.5ng/mL: Systemic infection not likelyPCT >0.5 and =<2.0 ng/mL: Moderate risk for progression to systemic infectionPCT >2.0 ng/mL: High risk for progression to systemic infectionPCT >=10 ng/mL High likelihood of severe sepsis or septic shock. [place] [address] Rheumatoid Factor Negative NEGATIVE [place] [address] Anti-Nuclear Antibody Screen Negative NEGATIVE [place] [address] Venous Blood pH 7.39 7.32-7.43 [place] [address] Venous Blood Partial Pressure CO2 72 mmHg 41-51 [place] [address] Venous Blood Partial Pressure O2 38 mmHg 30-40 [place] [address] Venous Blood Oxygen Saturation 69.2 % 60.0-80.00 VBG O2 saturation result is dependent upon location the specimen is drawn from.VBG O2 saturation drawn from a PA catheter is the equivalent of a SvO2 (mixed venous oxygenation saturation)VBG O2 saturation drawn from a central line is the equivalent of a ScvO2 (central venous oxygenation saturation) [place] [address] Venous Blood HCO3 43 mmol/L 22-29 [place] [address] Blood Gas Liter Flow 2 L/M 0-20 [place] [address] Blood Gas Comments Nc [place] [address] Blood Gas Patient Temperature 36.7 C [place] [address] Proteinase 3 (PR3) <1.0 AI Value Interpretation <1.0 AI: No Antibody Detected >or=1.0 AI: Antibody DetectedAutoanti bodies to proteinase-3 (NH-3) are accepted ascharacteristic for granulomatosis with polyangiitis(GPA , Gera's), and are detectabale in 95% of thehistologicall y proven cases. The cytoplasmic IFApattern, (c-ANCA), is based largely on autoantibody toPR-3 which serves as the primary antigen. Theseautoantibod ies are present in active disease.THIS TEST WAS PERFORMED AT:[facility] [address] [address]Fmdkrllinette Cooper M.D., Ph.D.,Director of Laboratories [facility], [facility] [address] Myeloperoxida se Antibody <1.0 AI Value Interpretation <1.0 AI: No Antibody Detected >or=1.0 AI: Antibody DetectedAutoanti bodies to myeloperoxidase (MPO) are commonlyassociat ed with the following small-vesselvasc ulitides: microscopic polyangiitis, polyarteritisnod deloris, Churg-Karey syndrome, necrotizing andcrescentic glomerulonephrit is and occasionallygran ulomatosis with polyangiitis (GPA, Gera's). Theperinuclear IFA pattern, (p-ANCA) is based largely onautoantibody to myeloperoxidase which serves as theprimary antigen. These autoantibodies are present inactive disease. 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 Image Encounter Appointment G47.33 Image Encounter Image Encounter Non-Appointment Non-Appointment Non-Appointment Image Encounter Non-Appointment Image Encounter Appointment G47.33 I27.20 COPD EXACERBATION Reason for Visit Atrial flutter H/O cardiac radiofrequency ablation Obstructive sleep apnea Acute exacerbation of chronic obstructive pulmonary disease Encounters Encounter Location(s) Arrival/Admit Date Discharge/Depart Date Provider(s) Registered Physician/Provi leticia Office Visit [facility]- January 04, 2019 12:00am null Registered Physician/Provi leticia Office Visit [facility]- January 05, 2019 12:00am null Registered Physician/Provi leticia Office Visit [facility]- January 07, 2019 12:00am null Registered Physician/Provi leticia Office Visit [facility]- March 11, 2019 12:00am null Registered Physician/Provi leticia Office Visit [facility]- March 18, 2019 12:00am null Registered Physician/Provi leticia Office Visit [facility]- March 26, 2019 12:00am null Registered Physician/Provi leticia Office Visit [facility]- April 07, 2019 12:00am null Registered Physician/Provi leticia Office Visit [facility]- April 12, 2019 12:00am null Registered Physician/Provi leticia Office Visit [facility]- April 13, 2019 12:00am null Registered Referred [facility] April 13, 2019 8:15am Kourtney Jett MD Registered Physician/Provi leticia Office Visit [facility]- May 24, 2019 12:00am null Registered Physician/Provi leticia Office Visit [facility]- June 20, 2019 12:00am null Registered Physician/Provi leticia Office Visit [facility]- July 09, 2019 12:00am null Registered Physician/Provi leticia Office Visit [facility]- July 10, 2019 12:00am null Registered Physician/Provi leticia Office Visit [facility]- July 16, 2019 12:00am null Registered Physician/Provi leticia Office Visit [facility]- July 21, 2019 12:00am null Registered Physician/Provi leticia Office Visit [facility]- July 22, 2019 12:00am null Registered Physician/Provi leticia Office Visit [facility]- August 23, 2019 12:00am null Registered Physician/Provi leticia Office Visit [facility]- August 24, 2019 12:00am null Registered [facility] August 24, 2019 8:00am Kourtney Jett MD Registered Referred [facility] Medicine November 30, 2019 3:00pm Kourtney Jett MD Registered [facility] November 30, 2019 4:10pm Kourtney Jett MD Registered [facility] [facility] December 21, 2019 11:15am Kourtney Jett MD Admitted Inpatient [facility]- Unit December 22, 2019 4:39pm Kulwinder Salinas MD Recent Diagnosis Onset Date Atrial flutter H/O cardiac radiofrequency ablation Obstructive sleep apnea Acute exacerbation of chronic obstructiv e pulmonary disease Assessments Diagnosis Onset Date Resolution Status Atrial flutter acute H/O cardiac radiofrequency ablation acute Obstructive sleep apnea acut e Acute exacerbation of chroni c obstructive pulmonary disease acute Functional Status No Functional Status information available Goals No Goals Information Available Mental Status No Mental Status Information Available Medical Equipment No Medical Equipment Information available Insurance Providers Guarantor Oly Dolan Address [address] [place] [id number] Contact Info. Home Phone: Payer Policy Id Coverage Id Subscriber's Name Subscriber Id Effective Date Expiration Date [employer] [facility] [id number] [id number] [place] [id number] [employer] OUT OF STATE PLAN [id number] Oly Dolan [id number] [employer] PPO [id number] Anurag Owens [id number] SELF PAY Plan of Treatment Future Tests Future scheduled test information is unavailable Pending Tests Pending diagnostic test information is unavailable Future Visits Future appointment information is unavailable Referrals to Other Providers Reason for Referral Referral Start Date Provider Provider Contact Information Provider Address Gwen Ramos Work Phone: [address] [address] Future Procedures Future procedure information is unavailable Future Medications Future medication information is unavailable Patient Instructions Patient instructions are unavailable Social History Smoking Status Status Date of Observation Ex-smoker (finding) December 22, 2019 5 :24pm Observation Status Observation Response Date of Response Smoking Status Former smoker December 22 5:24pm Assigned Sex Male Vital Signs Vital Reading Result Reference Range Collection Date/Time Height 71 [in_i] December 22 12:52pm Weight 149.68 kg December 22 12:52pm Body Temperature 98.0 [degF] 96.5-101.5 December 4:28pm Heart Rate 100 /min 50-110 December 22 6:06pm Respiratory rate 18 /min 12-20 December 6:06pm Oxygen saturation by Pulse oximetry 95 % 95-100 December 22, 2019 6 :06pm BP Systolic 100 mm[Hg] 100-180 December 22, 2 020 6:06pm BP Diastolic 70 mm[Hg] 70-85 December 22, 2 020 6:06pm BMI (Body Mass Index) 46.0 kg/m2 [facility] 2019 4:41pm
--- OUTSIDE RECORDS SUMMARY | 2024-01-12 17:49 | XMS_ITS | Continuity of Care Document ---
Author Name Unknown Address [address] [place] [address] Phone [facility] Address [address] [place] [address] Phone Support Name Relationship Address Phone [facility] [address] [place] [address] MD Johnie Frazier Attending Provider [address] [place] [address] MD Gwen [facility] Primary Care Provider [address] [place] [address] KIMBERLY Sanchez Attending Provider Unknown Unavailable Chief Complaint and Reason for Visit Chief Complaint COPD follow-up COPD/ VILLELA/DEVIN/ CHRONIC RESP Amb Documentation COPD/ VILLELA/DEVIN/ CHRONIC RESP Oxygen Levels Possible exacerbation AUDIO - [phone] 3M COPD/VILLELA/DEVIN/CHRONIC RESP 3M COPD/VILLELA/DEVIN/CHRONIC RESP Reason for Visit Body mass index (BMI ) of 45.0 to 49.9 in adult Chronic respiratory failure with hypercapnia Chronic respiratory failure with hypoxia COPD, group D, by GOLD 2017 classification Dyspnea on exertion Obstructive sleep apnea syndrome, severe Pulmonary hypertension Body mass index (BMI) of 45.0 to 49.9 in adult Chronic respiratory failure with hypercapnia Chronic respiratory failure with hypoxia COPD, group D, by GOLD 2017 classification Dyspnea on exertion Obstructive sleep apnea syndrome, [...] Date Date of Observa tion [facility] ([facility] Observation Status Observation Response Date of Response Smoking Status Former smoker August 29, 2020 9:33am How long ago did patient quit smoking August 29, 2020 9:33am Tobacco type cigarettes August 29, 2020 9:33am Smoking packs per day 1.5 August 29, 2020 9:33am Smoking cigarettes per day 30.0 mb2019 9:33am Years smoked August 29, 2020 9:33am Smoking pack-years 45.00 August 9:33am NHANES social isolation score Se pt2019 9:33am Additional Data Assigned Sex Male Family History Relationship Condition Age at Onset Recorded Date/T arnel father Malignant neoplasm of bone Unknown mother Chronic obstructive pulmonary disease Unk nown Problems Active Problems Medical Problem Onset Date Status COPD, group D, by GOLD 2017 classification Active Chronic respiratory failure with hypercapnia Active Chronic respiratory failure with hypoxia Active Dyspnea on exertion Active Atrial flutter Active Pulmonary hypertension Active [...] inhaler Active 2 PUFF INH Q4H 3 September 21, 2020 2:22pm Budesonide-Fo rmoterol (Symbicort) 160-4.5 mcg/actuation HFA aerosol inhaler Discontin ued 2 PUFF INH Twice A Day 10.2 February 23, 2021 8:44am February 26, 2021 4:56pm Rinse mouth after use Budesonide-Fo rmoterol (Symbicort) 160-4.5 mcg/actuation HFA aerosol inhaler Active 2 PUFF INH Twice A Day 3 February 26, 2021 4:55pm Roflumilast (Daliresp) 500 mcg tablet Active 500 MCG PO Daily 90 Septemb er 2020 2:35pm Azelastine Active 2 SPRAY NA Twice A Day 30 S eptemb er 2020 1:10pm Prednisone Discontin ued 0 .ROUTE .COMPLEX December 22, 2019 4:27pm 2019 5:34pm Taper as directed over ten days, then discontinue Cefpodoxime Discontin ued 200 MG PO Twice A Day December 22, 2019 4:27pm 2019 5:33pm for 7 days Diltiazem Hcl (Cardizem Cd) 240 mg capsule,exten ded release 24hr Discontin ued 240 MG PO Daily December 22, 2019 4:27pm y 2019 5:33pm Metoprolol Succinate (Toprol Xl) 100 mg tablet extended release 24 hr Discontin ued 100 MG PO Daily December 22, 2019 4:27pm 2019 5:34pm Benzonatate (Tessalon Perles) 100 mg capsule Discontin ued 100 MG PO 3 Times A Day December 22, 2019 4:27pm 2020 12:46p m Codeine-Guaif enesin (Virtussin Ac) 10-100 mg/5 mL liquid Discontin ued 10 ML PO Q4H December 22, 2019 4:27pm 2020 12:47p m Hydrochloroth iazide Discontin ued 25 MG PO Daily December 22, 2019 4:27pm 2019 5:34pm Oxycodone (Roxicodone) 5 mg tablet Discontin ued 5 MG PO Q4H December 22, 2019 4:27pm Decuar 2019 5:34pm Tiotropium [place] (Spiriva With Handihaler) 18 mcg capsule, w/inhalation device Active 18 MCG INH Daily December 22, 2019 4:27pm Roflumilast (Daliresp) 500 mcg tablet Discontin ued 500 MCG PO Daily December 22, 2019 4:27pm Septem 2019 9:48am Apixaban (Eliquis) 5 mg tablet Active 5 MG PO Twice A Day December 22, 2019 4:27pm Azelastine Discontin ued 2 SPRAY NA Daily December 22, 2019 4:49pm Septem greer 2020 1:11pm Albuterol Sulfate (Proair Hfa) 90 mcg/actuation HFA aerosol inhaler Discontin ued 2 PUFF INH Q4H December 22, 2019 4:49pm Octobe r 2019 2:23pm Budesonide-Fo rmoterol (Symbicort) 160-4.5 mcg/actuation HFA aerosol inhaler Discontin ued 2 PUFF INH Twice A Day December 22, 2019 4:49pm February 23, 2021 8:45am Omeprazole Active 20 MG PO Daily 2019 5:17pm Albuterol Sulfate (Proair Hfa) 90 mcg/actuation Hfa Aerosol Inhaler Discontin ued 2 PUFF INH Q4H December 22, 2019 5:17pm Octobe r 2019 2:23pm Vitamin E Active 1000 UNIT PO Daily December 22, 2019 5:19pm Acetaminophen (Tylenol) 325 mg Tablet Active 650 MG PO Q6H December 22, 2019 5:19pm Vitamin B Complex Active 1 TAB PO Daily December 22, 2019 5:19pm Multivitamin- Iron-Folic Acid (Centrum) 18-400 mg-mcg Tablet Active 1 TAB PO Daily December 22, 2019 5:19pm Furosemide Discontin ued 40 MG IV 0800,1600 240 December 30, 2019 5:33pm Februa 2019 1:03am Ipratropium-A lbuterol Discontin ued 1 AMP NEB Q4H AROUND THE CLOCK (RESP) December 30, 2019 5:33pm Februa ry 2019 1:03am Amiodarone Discontin ued 400 MG PO Q8H 36 December 30, 2019 5:33pm Febr2019 1:03am Amiodarone Discontin ued 200 MG PO Daily 30 December 30, 2019 5:33pm 2019 1:03am to be started AFTER 400mg load completes Amlodipine Discontin ued 5 MG PO Daily 30 December 30, 2019 5:33pm 2019 1:03am Acetazolamide Sodium Discontin ued 250 MG IV Daily 7 December 30, 2019 5:33pm 2019 1:03am Docusate Sodium Discontin ued 100 MG PO Twice A Day 60 December 30, 2019 5:33pm 2019 1:03am Budesonide Discontin ued 0.5 MG NEB TWICE A DAY (RESP) 120 December 30, 2019 5:33pm 2019 1:03am Diltiazem Hcl Discontin ued 90 MG PO Q6H 120 December 30, 2019 5:33pm 2019 1:03am Chlorhexidine Gluconate Discontin ued 15 ML MT 3 Times A Day December 30, 2019 5:33pm 2019 1:03am Sennosides (Senna Lax) 8.6 mg Tablet Discontin ued 2 EACH PO At Bedtime 60 December 30, 2019 5:35pm 2019 1:03am Prednisone Discontin ued 50 MG PO WITH BREAKFAST 10 December 30, 2019 5:35pm 2019 1:04am Please taper with 5 days of 25mg prednisone followed by return to hoem 10mg daily prednisone Lorazepam Discontin ued 0.5 MG PO Q12H 60 December 30, 2019 5:35pm 2019 1:03am Metoprolol Tartrate Discontin ued 50 MG PO Q6H 120 December 30, 2019 5:35pm 2019 1:03am Insulin Lispro (Humalog U-100 Insulin) 100 unit/mL Solution Discontin ued 0 UNIT SC With Meals and at Bedtime 30 December 30, 2019 5:35pm 2019 1:03am Sodium Chloride (Deep Sea Nasal) 0.65 % Aerosol,[place] Discontin ued 2 SPRAY NA Q4H 10 December 30, 2019 5:35pm Februa ry 2019 1:03am [place]-3 Fatty Acids (Fish Oil Concentrate) 1,000 mg capsule Active 1000 MG PO Daily Septemb er 2019 9:37am Roflumilast (Daliresp) 500 mcg tablet Discontin ued 500 MCG PO Daily 90 Septemb er 2019 9:47am Septem greer 2020 2:35pm Fluticasone Propionate Active 1 SPRAY NA Twice A Day 2020 12:47pm Furosemide Active 40 MG PO Twice A Day F ebruar y 2020 12:49pm Metoprolol Succinate Discontin ued TAB PO 2020 12:50pm Februa ry 2020 9:28am Amiodarone Active 200 MG PO Daily r 2020 12:50pm Diltiazem Hcl (Cartia Xt) 240 mg capsule,exten ded release 24hr Active 240 MG PO Daily 2020 12:55pm Metoprolol Succinate Active 100 MG PO Daily 2020 9:27am Prednisone Discontin ued 0 PO .COMPLEX 20 8 May 16, 2021 5:51pm May 24, 2021 12:03a m 40mg po qAM x2days, 30 mg x2days,20 mg x2days,then 10mg x2 days, then off. Azithromycin Discontin ued 500 MG PO Daily 5 5 May 16, 2021 5:52pm May 21, 2021 12:03a m Immunizations Immunization Event Date Not Given Reason Dose Number Manager Resort Lot Number Vaccine Information Statement (VIS) Detail influenza, injectable, quadrivalent, pf August 28, 2021 [id number] Influenza vaccine, quadrivalent, adjuvanted August 29, 2020 [id number] Vital Signs Vital Reading Result Reference Range Collection Date/Time Height 71 [in_i] August 29, 2020 9:33am Weight 148.83 kg August 29, 2020 9:33am Heart Rate 88 /min 50-110 August 29, 2020 9:33am Respiratory rate 16 /min 12-August 022019 9:33am Oxygen saturation by Pulse oximetry 92 % 95-100 August 29, 2020 9:33am BP Systolic 140 mm[Hg] 100-180 August 29, 2020 9:33am BP Diastolic 82 mm[Hg] 70-85 August 29, 2020 9:33am BMI (Body Mass Index) 45.7 kg/m2 Sept2019 9:33am Height 71 [in_i] November 07, 2 020 9:15am Weight 152.40 kg November 07, 2 020 9:15am Heart Rate 2 /min 50-110 November 07, 2 020 9:15am Respiratory rate 18 /min 12-October 9:15am Oxygen saturation by Pulse oximetry 93 % 95-100 November 07, 2020 9 :15am BP Systolic 130 mm[Hg] 100-180 November 07, 2 020 9:15am BP Diastolic 78 mm[Hg] 70-85 November 07, 2 020 9:15am BMI (Body Mass Index) 46.8 kg/m2 [facility] er 2019 9:15am Inhaled oxygen flow rate 2 L/[facility] 9:15am Height 71 [in_i] January 09, 2 021 9:25am Weight 152.40 kg January 09, 2 021 9:25am Heart Rate 58 /min 50-110 January 09, 2 021 9:25am Respiratory rate 17 /min -January 9:25am Oxygen saturation by Pulse oximetry 94 % 95-100 January 09, 2021 9 :25am BP Systolic 128 mm[Hg] 100-180 January 09, 2 021 9:25am BP Diastolic 76 mm[Hg] 70-85 January 09, 2 021 9:25am BMI (Body Mass Index) 46.8 kg/m2 Februa ry 2020 9:25am Inhaled oxygen flow rate 2 L/min Feb ruary 2020 9:25am Height 71 [in_i] May 22, 2021 2:57pm Weight 140.61 kg May 22, 2021 2:57pm Heart Rate 70 /min 50-90 May 22, 2021 2:57pm Respiratory rate 18 /min 12-20 May 22, 2021 2:57pm Oxygen saturation by Pulse oximetry 94 % 95-100 May 22, 2021 2:57 pm BP Systolic 138 mm[Hg] 100-180 May 22, 2021 2:57pm BP Diastolic 80 mm[Hg] 70-85 May 22, 2021 2:57pm BMI (Body Mass Index) 43.2 kg/m2 May 022020 2:57pm Height 71 [in_i] August 28, 2021 3:21pm Weight 143.33 kg August 28, 2021 3:21pm Heart Rate 65 /min 50-90 August 28, 2021 3:21pm Respiratory rate 16 /min 12-20 August 022020 3:21pm Oxygen saturation by Pulse oximetry 94 % 95-100 August 28, 2021 3:21pm BP Systolic 132 mm[Hg] 100-180 August 28, 2021 3:21pm BP Diastolic 80 mm[Hg] 70-85 August 28, 2021 3:21pm BMI (Body Mass Index) 44.0 kg/m2 Sept2020 3:21pm Advance Directives Advance Directive Response Recorded Date/ Time Do you have a Health Care Proxy Declined December 30, 2019 12:33am MOLST Form Reviewed/Completed With Patient No December 22, 2019 8:57pm Insurance Providers Guarantor OLY TAMAYO Address [address] [place] [address] Contact Info. Home Phone: Payer Policy Id Coverage Id Subscriber's Name Subscriber Id Effective Date Expiration Date [place] [id number] OLY TAMAYO [id number] BLUE [employer] OUT OF STATE PLAN [id number] OLY TAMAYO [id number] BLUE [employer]OSS PPO [id number] Anurag Munoz [id number] SELF PAY Encounters Encounter Location(s) Arrival/Admit Date Discharge/Depart Date Provider(s) Departed Physician/Prov ider Office Visit [facility] Pulmonology August 29, 2020 9:10am August 29, 2020 10:43am Johnie Frazier MD Departed Physician/Prov ider [facility] November 07, 2020 9:01am November 07, 2020 10:12am Johnie Frazier MD Non-patient / Non-visit [facility] January 08, 2021 12:43pm Rossy Sanchez CPhT Departed Physician/Prov ider Office Visit [facility] Pulmonology January 09, 2021 9:22am January 09, 2021 9:53am Johnie Frazier MD Departed Physician/Prov ider Office Visit [facility] Pulmonology February 27, 2021 7:57am February 27, 2021 1:38pm Johnie Frazier MD Departed Physician/Prov ider Office Visit [facility] Pulmonology May 16, 2021 3:11pm May 16, 2021 11:59pm Johnie Frazier MD Departed Physician/Prov ider Office Visit [facility] May 22, 2021 2:47pm May 22, 2021 3:19pm Johnie Frazier MD Departed Physician/Prov ider Office Visit [facility] Pulmonology August 28, 2021 3:17pm August 28, 2021 3:42pm Johnie Frazier MD Recent Diagnosis Onset Date Body mass index (BMI) of 45.0 to 49.9 in adult Chronic respiratory failure with hyperca pnia Chronic respiratory failure with hypoxia COPD, group D, by GOLD 2017 classificati on Dyspnea on exertion Obstructive sleep apnea syndrome, severe Pulmonary hypertension Body mass index (BMI) of 45.0 to 49.9 in adult Chronic respiratory failure with hyperca pnia Chronic respiratory failure with hypoxia COPD, group D, by GOLD 2017 classificati on Dyspnea on exertion Obstructive sleep apnea syndrome, [...] hypertension Assessments Diagnosis Onset Date Resolution Status Body mass index (BMI) of 45.0 to 49.9 in adult chronic Chronic respiratory failure with hypercapnia chronic Chronic respiratory failure with hypoxia chronic COPD, group D, by GOLD 2017 classification chronic Dyspnea on exertion chronic Obstructive sleep apnea syndrome, severe chronic Pulmonary hypertension chron ic Body mass index (BMI) of 45.0 to 49.9 in adult chronic Chronic respiratory failure with hypercapnia chronic Chronic respiratory failure with hypoxia chronic COPD, group D, by GOLD 2017 classification chronic Dyspnea on exertion chronic Obstructive sleep [...] to 2 L O2 bled into Astral. 3. Severe OSAS - currently on Astral vent at night ([employer]) with improved oxygenation. Pt is using Astral all night every night, is benefitting from use. it is medically necessary to continue using Astral NIV. 3. GOLD Class D COPD - currently on symbicort/spireva handihaler/proair/daliresp/alb nebs. Stable. Continue present therapy. Daliresp rejected by insurance. Pt has been on daliresp for last year with good effect, has not been hospitalized. 4. VILLELA - multifactorial (GOLD III COPD, deconditioning). finished outpt pulm rehab. pt exercising on treadmill daily for 30 minutes in past, but since he hurt his back, hasn't exercised in last 3 weeks. monitor O2 sats with goal O2 sat > 88%, use 1-2 L O2 on exertion. Advised to continue with treadmill daily. 5. CO2 retainer - advised pt to maintain O2 sats 88-94% only. 6. Recurrent PE - eliquis, likely longlong.anticoagulation. 7. Vaccinations - UTD on all pulm vaccinations. Administered flu shot today. 8. Pulmonary hypertension noted on CT. 2/2 COPD/chronic hypoxia despite CPAP use. reviewed latest ECHO (11/18). ECHO is nondiagnostic due to poor windows. Pt referred to tertiary pulmonary rehab center for diagnostic RHC. Rheum work-up negative so far. Referred to [facility] Pulm HTN clinic, pt finally saw doctor. Ruling out other causes of pulm HTN. Will hold off on sildenifil until [facility] Pulmonary HTN clinic visit. 9. Morbid obesity, BMI 47 - has lost weight. Stressed relationship between obesity and breathing/OSAS. pt has lost significant weight, but needs to lose more; pt has regained 28 lb over past 3 months. Strongly advised to improve diet. Goal wt 250lb. 10. COVID-19 counseling - strongly advised home isolation given pt is high risk for COVID-19 complications. 11. Back pain is limiting pt's exercise. Advised to get this evaluated and treated since it's imperitive for patient to resume exercise. Suggested pain clinic for possible epidural injections (worked well in the past, per patient). [place] 1. Lung nodule - 9mm GGO in [...] Rheum work-up negative so far. Referred to [facility] Pulm HTN clinic, pt finally saw doctor. Ruling out other causes of pulm HTN. Will hold off on sildenifil until [facility] Pulmonary HTN clinic visit. 9. Morbid obesity, BMI 47 - has lost weight. Stressed relationship between obesity and breathing/OSAS. pt has lost significant weight, but needs to lose more; pt has regained 28 lb over past 3 months. Strongly advised to improve diet. Goal wt 250lb. 10. COVID-19 counseling - strongly advised home isolation given pt is high risk for COVID-19 complications. 11. Back pain is limiting pt's exercise. Advised to get this evaluated and treated since it's imperitive for patient to resume exercise. Suggested pain clinic for possible epidural injections (worked well in the past, per patient). Pt got in bad habits with diet. [place] 1. Lung nodule - 9mm GGO in [...] handihaler/proair/daliresp/alb nebs. Stable. Continue present therapy. 4. IVLLELA - multifactorial (GOLD III COPD, deconditioning). finished [...] Rheum work-up negative so far. Referred to [facility] Pulm HTN clinic, pt finally saw doctor. Ruling out other causes of pulm HTN. Will hold off on sildenifil until [facility] Pulmonary HTN clinic visit. Pt has called [facility] pulm HTN clinic for appt but [...] Rheum work-up negative so far. Referred to [facility] Pul HTN clinic, pt finally saw doctor. Ruling out other causes of pulm HTN. Will hold off on sildenifil until [facility] Pulmonary HTN clinic visit. Pt has called [facility] pulm HTN clinic for appt but [...] Rheum work-up negative so far. Referred to [facility] Pulm HTN clinic, pt finally saw doctor. Ruling out other causes of pulm HTN. Will hold off on sildenifil until [facility] Pulmonary HTN clinic visit. Pt has called [facility] pulm HTN clinic for appt but [...] Rheum work-up negative so far. Referred to [facility] Pulm HTN clinic, pt finally saw doctor. Ruling out other causes of pulm HTN. Will hold off on sildenifil until [facility] Pulmonary HTN clinic visit. Pt has called [facility] pulm HTN clinic for appt but [...] Rheum work-up negative so far. Referred to [facility] Pulm HTN clinic, pt finally saw doctor. Ruling out other causes of pulm HTN. Will hold off on sildenifil until [facility] Pulmonary HTN clinic visit. Pt has called [facility] pulm HTN clinic for appt but [...] Dinorah Motley MD Work Phone: /[phone] [place] [phone] Future Procedures Future procedure information is unavailable Future Medications Future medication information is unavailable Patient Instructions Patient instructions are unavailable
--- OUTSIDE RECORDS SUMMARY | 2024-01-12 17:49 | XMS_ITS | Continuity of Care Document ---
Author Name Unknown Address [address] [place] [address] Phone [facility] Address [address] [place] [address] Phone Support Name Relationship Address Phone [facility] [address] [place] [address] MD Gwen [facility] Primary Care Provider [address] [place] [address] MD Johnie Frazier Attending Provider [address] [place] [address] MD Mary Ellen Sandoval Emergency Provider [address] [place] [address] JERRY Morris Admit Provider [address] [place] [address] MD Jonah Prakash Attending Provider [address] [place] [address] Chief Complaint and Reason for Visit Chief Complaint Oxygen Levels Possible exacerbation AUDIO - [phone] 3M COPD/VILLELA/DEVIN/CHRONIC RESP 3M COPD/VILLELA/DEVIN/CHRONIC RESP 3M [...] 22, 2019 3:27pm y 2019 4:34pm Tiotropium [place] (Spiriva With Handihaler) 18 mcg capsule, w/inhalation [...] of 25mg prednisone followed by return to [facility] 10mg daily prednisone Lorazepam Discontin ued 0.5 [...] Sodium Chloride (Deep Sea Nasal) 0.65 % Aerosol,[place] Discontin ued 2 SPRAY NA Q4H 10 December 30, 2019 4:35pm 2019 12:03a m [place]-3 Fatty Acids (Fish Oil Concentrate) 1,000 mg capsule Active 1000 MG PO Daily [facility] 2019 8:37am Roflumilast (Daliresp) 500 mcg tablet Discontin ued 500 MCG PO Daily [facility] 8:47am Septem greer 2020 1:35pm Fluticasone Propionate Active 1 SPRAY NA Twice A Day r 2020 11:47am Furosemide Active 40 MG PO Twice A Day F ebruar y 2020 11:49am Metoprolol Succinate Discontin ued TAB PO uar y 2020 11:[facility]am [facility] 8[facility] Amiodarone Active [...] 4:52pm May 20, 2021 11:03p m Tiotropium [place] (Spiriva Respimat) 2.5 mcg/actuation mist Active 2 PUFF INH Every Morning September 08, 2021 9:13am Methimazole Active 5 MG PO Daily Jantyron 2021 3:19pm Immunizations Immunization Event Date Not Given Reason Dose Number Curriculum Writer Lot Number Vaccine Information Statement (VIS) Detail COVID-19, Moderna January 26, 2021 COVID-19, Moderna October 06, 2021 influenza, injectable, quadrivalent, pf August 28, 2021 [id number] Pneumococcal Polysacc. Vaccine, 23 valent December 25, 2021 [id number] Influenza vaccine, quadrivalent, adjuvanted August 29, 2020 [id number] tetanus and diphth toxoids, adsorbed, adult December 11, 2021 Procedures Procedure Date Performed Status Blood Culture January 20, 2022 active Relevant Diagnostic Tests and/or Laboratory Data Laboratory Results Test Date/Time Result Interpretation Reference Range Result Comment Performing Site White Blood Count January 20, 2022 2:30pm 10.7 x10^3/uL 3.8-11.3 [facility] [address] [place] [id number] Red Blood Count January 20, 2022 2:30pm 4.67 x10^6/uL 4.7-6.1 [facility] [address] [place] [address] Hemoglobin January 20, 2022 2:30pm 14.2 g/dL 13.0-17.0 [facility] [address] [place] [address] Hematocrit January 20, 2022 2:30pm 42.9 % 38.0-49.0 [facility] [address] [place] [address] Mean Corpuscular Volume January 20, 2022 2:30pm 91.9 fL 80-100 [facility] [address] [place] [address] Mean Corpuscular Hemoglobin January 20, 2022 2:30pm 30.4 pg 26.7-33.0 [facility] [address] [place] [address] Mean Corpuscular Hemoglobin Concent January 20, 2022 2:30pm 33.1 g/dL 31.6-35.6 [facility] [address] [place] [address] RDW Coefficient of Variation January 20, 2022 2:30pm 15.3 % 11.5-14.5 [facility] [address] [place] [address] Platelet Count January 20, 2022 2:30pm 155 x10^3/uL 150-[address] [address] Mean Platelet Volume January 20, 2022 2:30pm 11.8 fL 7.4-13.[address] [address] Neutrophils (%) (Auto) January 20, 2022 2:30pm 72.3 % 38.0-84.0 [facility] [address] [place] [address] Lymphocytes (%) (Auto) January 20, 2022 2:30pm 17.1 % 20.0-40.[address] [address] Monocytes (%) (Auto) January 20, 2022 2:30pm 8.8 % 3.0-13.[address] [address] Eosinophils (%) (Auto) January 20, 2022 2:30pm 1.2 % 0.0-6.0 [facility] [address] [place] [address] Basophils (%) (Auto) January 20, 2022 2:30pm 0.6 % 0-2.[address] [address] Plasma Sodium January 20, 2022 4:08pm 140 MMOL/L 136-[address] [address] Plasma Potassium January 20, 2022 4:08pm 3.7 MMOL/L 3.5-5.1 [facility] [address] [place] [address] Plasma Chloride January 20, 2022 4:08pm 99 MMOL/L 98-[address] [address] Plasma Carbon Dioxide January 20, 2022 4:08pm 34 MMOL/L 21-[address] [address] Anion Gap January 20, 2022 4:08pm 7 4-[address] [address] Plasma Calcium January 20, 2022 4:08pm 8.8 MG/DL 8.7-10.[address] [address] Plasma Glucose Level January 20, 2022 4:08pm 92 MG/DL 74-[address] [address] Plasma Blood Urea Nitrogen January 20, 2022 4:08pm 15 9-23 Note: New reference range and method effective 07/13/2019. [address] [address] Plasma Creatinine January 20, 2022 4:08pm 0.74 mg/dL 0.70-1.[address] [address] Estimated GFR (CKD-EPI) January 20, 2022 4:08pm 104 >60 NOTE: New 2020 CKD-EPI equation in use effective 11/13/21Race specific equations for eGFR are no longer recommended by the [employer]. [address] [address] Lactic Acid Level January 20, 2022 3:04pm 0.4 MMOL/L 0.4-2.[address] [address] Procalcitonin January 20, 2022 4:08pm 0.25 ng/ml 0-0.05 Result Interpretation s:PCT =<0.5ng/mL: Systemic infection not likelyPCT >0.5 and =<2.0 ng/mL: Moderate risk for progression to systemic infectionPCT >2.0 ng/mL: High risk for progression to systemic infectionPCT >=10 ng/mL High likelihood of severe sepsis or septic shock. [address] [address] Coronavirus 2019 (KIARA) January 20, 2022 4:56pm [...] Amplification (KIARA) Rapid Molecular test. Performed on [employer] test has been authorized by the FDA under an Emergency Use Authorization (EAU) for use by authorized laboratories. [facility] [address] [place] [address] Diagnostic Imaging Reports Report Dictated Date/Time Dictated By Status Radiology Report January 20, 2022 3:54pm Agustín Thorpe MD completed [facility] [phone] [place] [address] ULTRASOUND REPORT Signed Patient: OLY TAMAYO MR#: [id number] : 1960 Acct:[id number] Age/Sex: 61 / M ADM Date: 2 Loc: ER Attending Dr: Ordering Physician: Waqas Gautam MD Date of Service: 01/20/22 Procedure(s): US venous doppler LE RT Accession Number(s): [id number] cc: Waqas Gautam MD~ History: Leg swelling [...] and Electronically Signed by: Agustín Thorpe MD ([id number]) Dictated Date and Time:01/20/22 1554 Technologist: Lopez [...] Insurance Providers Guarantor OLY TAMAYO Address [address] [facility] [address] Contact Info. Home Phone: Payer Policy Id Coverage Id Subscriber's Name Subscriber Id Effective Date Expiration Date [place] [id number] OLY TAMAYO [id number] BLUE CROSS OUT OF STATE PLAN [id number] OLY TAMAYO [id number] BLUE [employer]OSS PPO [id number] Anurag Munoz [id number] SELF PAY Encounters Encounter Location(s) Arrival/Admit Date Discharge/Depart Date Provider(s) Departed Physician/Prov ider Office Visit [facility] Pulmonology February 27, 2021 6:57am February 27, 2021 12:38pm Johnie Frazier MD Departed Physician/Prov ider Office Visit [facility] Pulmonology May 16, 2021 2:11pm May 16, 2021 10:59pm Johnie Frazier MD Departed Physician/Prov ider Office Visit [facility] Pulmonology May 22, 2021 1:47pm May 22, 2021 2:19pm Johnie Frazier MD Departed Physician/Prov ider Office Visit [facility] Pulmonology August 28, 2021 2:17pm August 28, 2021 2:42pm Johnie Frazier MD Departed Physician/Prov ider Office Visit [facility] Pulmonology December 25, 2021 3:14pm December 25, 2021 3:48pm Johnie Frazier MD Admitted Inpatient [place] [address] Unit January 20, 2022 4:54pm Jonah Prakash [...] Rheum work-up negative so far. Referred to [facility] Pulm HTN clinic, pt finally saw doctor. Ruling out other causes of pulm HTN. Will hold off on sildenifil until [facility] Pulmonary HTN clinic visit. Pt has called [facility] pulm HTN clinic for appt but never [...] Rheum work-up negative so far. Referred to [facility] Pulm HTN clinic, pt finally saw doctor. Ruling out other causes of pulm HTN. Will hold off on sildenifil until [facility] Pulmonary HTN clinic visit. Pt has called [facility] pulm HTN clinic for appt but never [...] Rheum work-up negative so far. Referred to [facility] Pulm HTN clinic, pt finally saw doctor. Ruling out other causes of pulm HTN. Will hold off on sildenifil until [facility] Pulmonary HTN clinic visit. Pt has called [facility] pulm HTN clinic for appt but never [...] Rheum work-up negative so far. Referred to [facility] Pulm HTN clinic, pt finally saw doctor. Ruling out other causes of pulm HTN. Will hold off on sildenifil until [facility] Pulmonary HTN clinic visit. Pt has called [facility] pulm HTN clinic for appt but never [...] Rheum work-up negative so far. Referred to [facility] Pulm HTN clinic, pt finally saw doctor. Ruling out other causes of pulm HTN. Will hold off on sildenifil until [facility] Pulmonary HTN clinic visit. Pt has called [facility] pul HTN clinic for appt but never [...] Address Rachel Hidalgo MD Work Phone: [address] [address] Future Procedures Future procedure information is unavailable Future Medications Future medication information is unavailable Patient Instructions Patient instructions are unavailable Goals Acute Goals Ongoing and prior to dischar ge per patient stated goal 30 m inutes post pain intervention Prior to discharge
--- OUTSIDE RECORDS SUMMARY | 2024-01-12 17:49 | XMS_ITS | Continuity of Care Document ---
Author Name Unknown Address [address] [place] [address] Phone [facility] Address [address] [place] [address] Phone Support Name Relationship Address Phone [facility] [address] [place] [address] MD Gwen [facility] Primary Care Provider [address] [place] [address] MD Johnie Frazier Attending Provider [address] [facility] [place] [address] MD Mary Ellen Sandoval Emergency Provider [address] [place] [address] JERRY Morris Admit Provider [address] [place] [address] MD Jonah Prakash Other Provider [address] [place] [address] MD Elvin Hansen Attending Provider [address] [place] [address] Chief Complaint and Reason for Visit Chief Complaint Oxygen Levels Possible exacerbation AUDIO - [phone] 3M COPD/VILLELA/DEVIN/CHRONIC RESP 3M COPD/VILLELA/DEVIN/CHRONIC RESP 3M [...] 2020 8:33am Smoking pack-years 45.00 August 8:33am [facility] social isolation score ptember 2019 8:33am Additional [...] December 22, 2019 3:27pm 2019 4:34pm Tiotropium [place] (Spiriva With Handihaler) 18 mcg capsule, w/inhalation [...] of 25mg prednisone followed by return to [facility] 10mg daily prednisone Lorazepam Disconti nued 0.5 [...] Sodium Chloride (Deep Sea Nasal) 0.65 % Aerosol,[place] Disconti nued 2 SPRAY NA Q4H 10 December 30, 2019 4:35pm 2019 12:03a m Cholecalcifer ol (Vitamin D3) (Vitamin D3) 25 mcg (1,000 unit) Capsule Active 25 MCG PO Daily 2021 8:15pm Multivitamin Active TAB DRUG DELIVER Y SYSTEM Daily 2021 8:16pm Doxycycline Hyclate Active 100 MG PO Twice A Day 16 2021 12:50pm [place]-3 Fatty Acids (Fish Oil Concentrate) 1,000 mg [...] 4:52pm May 20, 2021 11:03p m Tiotropium [place] (Spiriva Respimat) 2.5 mcg/actuation mist Active 2 PUFF INH Every Morning September 08, 2021 9:13am Methimazole Active 5 MG PO Daily 2021 3:19pm Immunizations Immunization Event Date Not Given Reason Dose Number Residential Installer Lot Number Vaccine Information Statement (VIS) Detail COVID-19, Moderna January 26, 2021 COVID-19, Moderna October 06, 2021 influenza, injectable, quadrivalent, pf August 28, 2021 [id number] Pneumococcal Polysacc. Vaccine, 23 valent December 25, 2021 [id number] Influenza vaccine, quadrivalent, adjuvanted August 29, 2020 [...] 7:51pm Health Care Proxy Name lissy hairston [id number] [phone] January 20, 2022 7:51pm MOLST Form Reviewed/Complete d With Patient No January 20, 2022 7:51pm Insurance Providers Guarantor OLY PAYANELL Address [address] [facility] [address] Contact Info. Home Phone: Payer Policy Id Coverage Id Subscriber's Name Subscriber Id Effective Date Expiration Date [place] [id number] OLY TAMAYO [id number] BLUE CROSS OUT OF STATE PLAN [id number] OLY TAMAYO [id number] BLUE CROSS PPO [id number] Anurag Munoz SELF PAY Encounters Encounter Location(s) Arrival/Admit Date Discharge/Depart Date Provider(s) Departed Physician/Prov ider Office Visit [facility] Pulmonology February 27, 2021 6:57am February 27, 2021 12:38pm Johnie Frazier MD Departed Physician/Prov ider Office [facility] May 16, 2021 2:11pm May 16, 2021 10:59pm Johnie Frazier MD Departed Physician/Prov ider Office Visit [facility] Pulmonology May 22, 2021 1:47pm May 22, 2021 2:19pm Johnie Frazier MD Departed Physician/Prov ider Office Visit [facility] Pulmonology August 28, 2021 2:17pm August 28, 2021 2:42pm Johnie Frazier MD Departed Physician/Prov ider Office Visit [facility] Pulmonology December 25, 2021 3:14pm December 25, 2021 3:48pm Johnie Frazier MD Non-patient / Non-visit [facility] Cardiology January 20, 2022 4:54pm Elvin [...] Rheum work-up negative so far. Referred to [facility] Pulm HTN clinic, pt finally saw doctor. Ruling out other causes of pulm HTN. Will hold off on sildenifil until [facility] Pulmonary HTN clinic visit. Pt has called [facility] pulm HTN clinic for appt but never [...] Rheum work-up negative so far. Referred to [facility] Pulm HTN clinic, pt finally saw doctor. Ruling out other causes of pulm HTN. Will hold off on sildenifil until [facility] Pulmonary HTN clinic visit. Pt has called [facility] pulm HTN clinic for appt but never [...] Rheum work-up negative so far. Referred to [facility] Pulm HTN clinic, pt finally saw doctor. Ruling out other causes of pulm HTN. Will hold off on sildenifil until [facility] Pulmonary HTN clinic visit. Pt has called [facility] pulm HTN clinic for appt but never [...] Rheum work-up negative so far. Referred to [facility] Pulm HTN clinic, pt finally saw doctor. Ruling out other causes of pulm HTN. Will hold off on sildenifil until [facility] Pulmonary HTN clinic visit. Pt has called [facility] pulm HTN clinic for appt but never [...] Rheum work-up negative so far. Referred to [facility] Pulm HTN clinic, pt finally saw doctor. Ruling out other causes of pulm HTN. Will hold off on sildenifil until [facility] Pulmonary HTN clinic visit. Pt has called [facility] pulm HTN clinic for appt but never [...] Address Rachel Hidalgo MD Work Phone: [address] [address] Future Procedures Future procedure information is unavailable Future Medications Future medication information is unavailable Patient Instructions Cellulitis Dc
--- OUTSIDE RECORDS SUMMARY | 2024-01-12 17:49 | XMS_ITS | Continuity of Care Document ---
Author Name Unknown Address [address] [place] [address] Phone Organization [facility] Address [address] [place] [address] Phone Support Name Relationship Address Phone St Shashank Yuan [address] [place] [address] [phone] Attending Provider Unknown Unavailab le [id number] Attending Provider Unknown Unavailab le [id number] Attending Provider Unknown Unavailab le Johnie Frazier Attending Provider [address] [place] [address] [phone] Attending Provider Unknown Unavailab le Rachel Hidalgo Primary Care Provider [address] [place] [address] Hector Coronado [place] [address] Brad Slaughter Admit Provider [address] [place] [address] Allergies, Adverse Reactions, Alerts No known allergies. [...] ORAL Q4H December 22, 2019 3:27pm Tiotropium [place] Active 18 MCG INHALATION DAILY December 22, [...] White Blood Count 21.3 x10^3/uL 3.8-11.3 [facility] [address] [place] [address] Red Blood Count 4.85 x10^6/uL 4.7-6.1 [facility] [address] [place] [address] Hemoglobin 13.7 g/dL 13.0-17.0 [facility] [address] [place] [address] Hematocrit 43.3 % 38.0-49.0 [facility] [address] [place] [address] Mean Corpuscular Volume 89.3 fL 80-100 [facility] [address] [place] [address] Mean Corpuscular Hemoglobin 28.2 pg 26.7-33.0 [facility] [address] [place] [address] Mean Corpuscular Hemoglobin Concent 31.6 g/dL 31.6-35.[address] [address] RDW Coefficient of Variation 15.8 % 11.5-14.[address] [address] Platelet Count 256 x10^3/uL 150-[address] [address] Mean Platelet Volume 9.8 fL 7.4-13.[address] [address] Prothrombin Time 11.8 Sec 9.4-12.[address] [address] Prothromb Time International Ratio 1.0 0.8-1.1 INTERPRETIVE NOTE:No anticoagulant: 0.8 to 1.1Standard dose anticoagulant: 2.0 to 3.0High dose anticoagulant: 2.5 to 3.5Critical INR: > 5.0 [place] [address] Plasma Sodium 136 MMOL/L 136-145 [place] [address] Plasma Potassium 4.0 MMOL/L 3.5-5.1 [place] [address] Plasma Chloride 89 MMOL/L 98-107 [place] [address] Plasma Carbon Dioxide > 40 MMOL/L 21-32 CRITICAL VALUE REPORTED AND READ BACK 22Dec[address] [address] Anion Gap TNP Test not performedUnable to calculate. [address] [address] Plasma Calcium 8.8 MG/DL 8.7-10.4 [place] [address] Plasma Glucose Level 114 MG/DL 74-[address] [address] Plasma Blood Urea Nitrogen 16 9-23 Note: New reference range and method effective 07/13/2019. [address] [address] Plasma Creatinine 0.6 MG/DL 0.6-1.1 Note: New reference range and method effective 07/13/2019. [address] [address] Estimated GFR (Non- 138.4 >60 Estimated GFR units = mL/min/1.73 m??IDMS traceable MDRD study equation in use effective 02/17/[address] [address] Estimated GFR () 167.7 >60 Estimated GFR units = mL/min/1.73 m??IDMS traceable MDRD study equation in use effective 02/17/[address] [address] Total Protein 6.1 g/dL 5.7-8.2 [place] [address] Albumin 4.3 g/dL 3.2-4.[address] [address] Direct Bilirubin 0.1 mg/dL 0.0-0.3 [place] [address] Total Bilirubin 0.4 mg/dL 0-1.2 [place] [address] Alkaline Phosphatase 57 U/L 46-116 [place] [address] Aspartate Amino Transf (AST/SGOT) 24 U/L 13-40 [place] [address] Alanine Aminotransfer ase (ALT/SGPT) 39 U/L 7-40 Sulfasalazine may interfere with this assay, specimens should be drawn prior to dose. [place] [address] B-Type Natriuretic Peptide 33.5 pg/mL <38.8 [place] [address] Prolactin 4.7 ng/mL 2.1-17.7 Please not e new reference ranges and method effective 07/13/2019.Nancy lly Menstruating FemalesNon-Pregn ant Females 2.8 - 29.2 ng/mL Females 9.7 - >200 ng/mLPostmenopau vidhya Females 1.8 - 20.3 ng/mLMales 2.1 - 17.7 ng/mL [place] [address] Troponin I 0.02 ng/mL 0.00-0.45 [place] [address] Procalcitonin 0.07 ng/ml 0-0.05 Result Interpretations: PCT =<0.5ng/mL: Systemic infection not likelyPCT >0.5 and =<2.0 ng/mL: Moderate risk for progression to systemic infectionPCT >2.0 ng/mL: High risk for progression to systemic infectionPCT >=10 ng/mL High likelihood of severe sepsis or septic shock. [place] [address] Rheumatoid Factor Negative NEGATIVE [place] [address] Anti-Nuclear Antibody Screen Negative NEGATIVE [place] [address] Venous Blood pH 7.39 7.32-7.43 [place] [address] Venous Blood Partial Pressure CO2 72 mmHg 41-51 [place] [address] Venous Blood Partial Pressure O2 38 mmHg 30-40 [place] [address] Venous Blood Oxygen Saturation 69.2 % 60.0-80.00 VBG O2 saturation result is dependent upon location the specimen is drawn from.VBG O2 saturation drawn from a PA catheter is the equivalent of a SvO2 (mixed venous oxygenation saturation)VBG O2 saturation drawn from a central line is the equivalent of a ScvO2 (central venous oxygenation saturation) [place] [address] Venous Blood HCO3 43 mmol/L 22-29 [place] [address] Blood Gas Liter Flow 2 L/M 0-20 [place] [address] Blood Gas Comments Nc [place] [address] Blood Gas Patient Temperature 36.7 C [place] [address] Proteinase 3 (PR3) <1.0 AI Value Interpretation <1.0 AI: No Antibody Detected >or=1.0 AI: Antibody DetectedAutoanti bodies to proteinase-3 (IL-3) are accepted ascharacteristic for granulomatosis with polyangiitis(GPA , Gera's), and are detectabale in 95% of thehistologicall y proven cases. The cytoplasmic IFApattern, (c-ANCA), is based largely on autoantibody toPR-3 which serves as the primary antigen. Theseautoantibod ies are present in active disease.THIS TEST WAS PERFORMED AT:[facility] [address] [address]Cnsttulinette Cooper M.D., Ph.D.,Director of Laboratories [facility], [facility] [address] Myeloperoxida se Antibody <1.0 AI Value [...] antigen. These autoantibodies are present inactive disease. 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 Image Encounter Appointment G47.33 Image Encounter Image Encounter Non-Appointment Non-Appointment Non-Appointment Image Encounter Non-Appointment Image Encounter Appointment G47.33 I27.20 COPD EXACERBATION Reason for Visit Atrial flutter H/O cardiac radiofrequency ablation Obstructive sleep apnea Acute exacerbation of chronic obstructive pulmonary disease Encounters Encounter Location(s) Arrival/Admit Date Discharge/Depart Date Provider(s) Registered Physician/Provi leticia Office Visit [facility]- January 04, 2019 12:00am null Registered Physician/Provi leticia Office Visit [facility]- January 05, 2019 12:00am null Registered Physician/Provi leticia Office Visit [facility]- January 07, 2019 12:00am null Registered Physician/Provi leticia Office Visit [facility]- March 11, 2019 12:00am null Registered Physician/Provi leticia Office Visit [facility]- March 18, 2019 12:00am null Registered Physician/Provi leticia Office Visit [facility]- March 26, 2019 12:00am null Registered Physician/Provi leticia Office Visit [facility]- April 07, 2019 12:00am null Registered Physician/Provi leticia Office Visit [facility]- April 12, 2019 12:00am null Registered Physician/Provi leticia Office Visit [facility]- April 13, 2019 12:00am null Registered Referred [facility] April 13, 2019 8:15am Kourtney Jett MD Registered Physician/Provi leticia Office Visit [facility]- May 24, 2019 12:00am null Registered Physician/Provi leticia Office Visit [facility]- June 20, 2019 12:00am null Registered Physician/Provi leticia Office Visit [facility]- July 09, 2019 12:00am null Registered Physician/Provi leticia Office Visit [facility]- July 10, 2019 12:00am null Registered Physician/Provi leticia Office Visit [facility]- July 16, 2019 12:00am null Registered Physician/Provi leticia Office Visit [facility]- July 21, 2019 12:00am null Registered Physician/Provi leticia Office Visit [facility]- July 22, 2019 12:00am null Registered Physician/Provi leticia Office Visit [facility]- August 23, 2019 12:00am null Registered Physician/Provi leticia Office Visit [facility]- August 24, 2019 12:00am null Registered Referred [facility] August 24, 2019 8:00am Kourtney Jett MD Registered Referred [facility] November 30, 2019 3:00pm Kourtney Jett MD Registered Referred [facility] November 30, 2019 4:10pm [facility]ourt[facility] Jett MD [facility] December 21, 2019 11:15am Kourtney Jett MD Admitted Inpatient [facility] December 22, 2019 4:39pm Kulwinder Salinas [...] available Insurance Providers Guarantor Oly Dolan Address [address] [place] [address] Contact Info. Home Phone: Payer Policy Id Coverage Id Subscriber's Name Subscriber Id Effective Date Expiration Date [employer] CROSS [facility] [id number] [id number] [facility] [id number] BL[employer]OSS OUT OF STATE PLAN [id number] Oly Dolan [id number] BL[employer] CROSS PPO [id number] Anurag Owens [id number] SELF PAY Plan of Treatment Future Tests Future scheduled test information is unavailable Pending Tests Pending diagnostic test information is unavailable Future Visits Future appointment information is unavailable Referrals to Other Providers Reason for Referral Referral Start Date Provider Provider Contact Information Provider Address Gwen Ramos Work Phone: [address] [address] Future Procedures Future procedure information is unavailable [...]
--- OUTSIDE RECORDS SUMMARY | 2024-01-12 17:50 | XMS_ITS | Continuity of Care Document ---
Author Name Unknown Address [address] [place] [address] Phone [facility] Address [address] [place] [address] Phone Allergies, Adverse Reactions, Alerts No known allergies. [...] 2019 3:27pm December 30, 2019 4:34pm Tiotropium [place] (Spiriva With Handihaler) 18 mcg capsule, w/inhalation device Active 18 MCG INH Daily December 22, 2019 3:27pm Roflumilast (Daliresp) 500 mcg tablet Active 500 MCG PO Daily December 22, 2019 3:27pm Apixaban (Eliquis) 5 mg tablet Active 5 [...] 0800,16 00 240 December 30, 2019 4:33pm 2019 12:03am Ipratropium-Al buterol Discontinu ed 1 AMP NEB Q4H AROUND THE CLOCK (RESP) December 30, 2019 4:33pm Febr2019 12:03am Amiodarone Discontinu ed 400 MG PO Q8H 36 December 30, 2019 4:33pm Febr2019 12:03am Amiodarone Discontinu ed 200 MG PO Daily December 30, 2019 4:33pm 2019 12:03am to be started AFTER 400mg load completes Amlodipine Discontinu ed 5 MG PO Daily December 30, 2019 4:33pm 2019 12:03am Acetazolamide Sodium Discontinu ed 250 MG IV Daily 7 December 30, 2019 4:33pm Februa2019 12:03am Docusate Sodium Discontinu ed 100 MG PO Twice A Day 60 December 30, 2019 4:33pm Febr y 2019 12:03am Budesonide Discontinu ed 0.5 MG NEB TWICE A DAY (RESP) 120 December 30, 2019 4:33pm Febr y 2019 12:03am Diltiazem Hcl Discontinu ed 90 MG PO Q6H 120 December 30, 2019 4:33pm Febr y 2019 12:03am Chlorhexidine Gluconate Discontinu ed 15 ML MT 3 Times A Day December 30, 2019 4:33pm Febr y 2019 12:03am Sennosides (Senna Lax) 8.6 [...] PO Q12H 60 December 30, 2019 4:35pm Februa y 2019 12:03am Metoprolol Tartrate Discontinu ed 50 MG PO Q6H 120 December 30, 2019 4:35pm Febr y 2019 12:03am Insulin Lispro (Humalog U-100 Insulin) 100 unit/mL Solution Discontinu ed 0 UNIT SC With Meals and at Bedtime December 30, 2019 4:35pm Februa y 2019 12:03am Sodium Chloride (Deep Sea Nasal) 0.65 % Aerosol,[place] Discontinu ed 2 SPRAY NA Q4H 10 December 30, 2019 4:35pm Febr y 2019 12:03am Problems Active Problems Medical Problem Onset Date [...] of chronic obstructive pulmon chu disease Active Advance Directives Advance Directive Response Recorded Date/ Time Do you have a Health Care Proxy Declined December 29, 2019 11:33pm MOLST Form Reviewed/Completed With Patient No December 22, 2019 7:57pm Assessments No Assessments Information Available Family History Relationship Condition Age at Onset Recorded Date/T arnel father Malignant neoplasm of bone Unknown mother Chronic obstructive pulmonary disease Unk nown Functional Status No Functional Status information available Goals Goals may be documented in an alternate section. Mental Status No Mental Status Information Available Medical Equipment No Medical Equipment Information available Insurance Providers Guarantor Oly Tamayo Address [address] [place] [id number] Contact Info. Home Phone: Payer Policy Id Coverage Id Subscriber's Name Subscriber Id Effective Date Expiration Date BL[employer] CROSS [facility] [id number] OLY TAMAYO [id number] BL[employer]OSS OUT OF STATE PLAN [id number] Oly Tamayo [id number] [employer] PPO [id number] Anurag Owens [id number] SELF PAY Plan of Treatment Future Tests Future scheduled test information is unavailable Pending Tests Pending diagnostic test information is unavailable Future Visits Future appointment information is unavailable Referrals to Other Providers Reason for Referral Referral Start Date Provider Provider Contact Information Provider Address Gwen Ramos MD Work Phone: [address] [address] Future Procedures Future procedure information is unavailable Future Medications Future medication information is unavailable Patient Instructions Patient instructions are unavailable Social History Smoking Status Status Date of Observation Ex-smoker (finding) December 30, 2019 4 :14pm Observation Status Observation Response Date of Response Smoking Status Former smoker December 30 4:14pm Assigned Sex Male
--- OUTSIDE RECORDS SUMMARY | 2024-01-12 17:50 | XMS_ITS | Continuity of Care Document ---
Author Name Unknown Address [address] [place] [address] Phone Organization [facility] Address [address] [place] [address] Phone Support Name Relationship Address Phone St Shashank Yuan [address] [place] [address] Johnie Frazier Attending Provider [address] [place] [address] Rachel Hidalgo Primary Care Provider [address] [place] [address] Allergies, Adverse Reactions, Alerts No known allergies. [...] 2019 3:27pm December 30, 2019 4:34pm Tiotropium [place] (Spiriva With Handihaler) 18 mcg capsule, w/inhalation device Active 18 MCG INH Daily December 22, 2019 3:27pm Roflumilast (Daliresp) 500 mcg tablet Discontinu ed 500 MCG PO Daily December 22, 2019 3:27pm Septemb er 2019 9:48am Apixaban (Eliquis) 5 mg tablet Active 5 MG PO Twice A Day December 22, 2019 3:27pm Azelastine Active 2 SPRAY NA Daily y 2019 3:49pm Albuterol Sulfate (Proair Hfa) 90 [...] 0800,16 00 240 December 30, 2019 4:33pm y 2019 12:03am Ipratropium-Al buterol Discontinu ed 1 AMP NEB Q4H AROUND THE CLOCK (RESP) 30 December 30, 2019 4:33pm y 2019 12:03am Amiodarone Discontinu ed 400 MG PO Q8H 36 December 30, 2019 4:33pm Februa y 2019 12:03am Amiodarone Discontinu ed 200 MG PO Daily 30 December 30, 2019 4:33pm Febr y 2019 12:03am to be started AFTER 400mg load completes Amlodipine Discontinu ed 5 MG PO Daily 30 December 30, 2019 4:33pm Februar y 2019 12:03am Acetazolamide Sodium Discontinu ed [...] PO Q6H 120 December 30, 2019 4:35pm Februar y 2019 12:03am Insulin Lispro (Humalog U-100 Insulin) 100 unit/mL Solution Discontinu ed 0 UNIT SC With Meals and at Bedtime 30 December 30, 2019 4:35pm Februar y 2019 12:03am Sodium Chloride (Deep Sea Nasal) 0.65 % Aerosol,[place] Discontinu ed 2 SPRAY NA Q4H 10 December 30, 2019 4:35pm Februar y 2019 12:03am Discontinu ed 0.5 ML IM Once 0.5 Augembe r 2019 9:10am Septemb er 2019 10:06am [place]-3 Fatty Acids (Fish Oil Concentrate) 1,000 mg capsule Active 1000 MG PO Daily Septembe r 2019 9:37am Roflumilast (Daliresp) 500 mcg tablet Active 500 MCG PO Daily 90 Augemb r 2019 9:47am Problems Active Problems Medical [...] Complaint and Reason for Visit Chief Complaint COPDFU Reason for Visit Body mass index (BMI ) of 45.0 to 49.9 in adult COPD, group D, by GOLD 2017 classification Chronic respiratory failure with hypercapnia Chronic respiratory failure with hypoxia Dyspnea on exertion Obstructive sleep apnea syndrome, severe Pulmonary hypertension Encounters Encounter Location(s) Arrival/Admit Date Discharge/Depart Date Provider(s) Registered Inpatient 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 Home Phone: Payer Policy Id Coverage Id Subscriber's Name Subscriber Id Effective Date Expiration Date [employer] CROSS [facility] [id number] OLY TAMAYO [id number] BL[employer] OUT OF STATE PLAN [id number] OLY TAMAYO [id number] [employer] PPO [id number] Anurag Owens [id number] SELF PAY Plan of Treatment Future Tests Future scheduled test information is unavailable Pending Tests Pending diagnostic test information is unavailable Future Visits Future appointment information is unavailable Referrals to Other Providers Reason for Referral Referral Start Date Provider Provider Contact Information Provider Address Gwen Ramos MD Work Phone: [address] [address] Future Procedures Future procedure information is unavailable [...] 30.0 Septe mber 2019 9:33am Years smoked August 29, 2020 9:33am [...]
--- OUTSIDE RECORDS SUMMARY | 2024-01-12 17:50 | XMS_ITS | Continuity of Care Document ---
Author Name Unknown Address [address] [place] [address] Phone Organization [facility] Address [address] [place] [address] Phone Support Name Relationship Address Phone St Shashank Yuan [address] [place] [address] [phone] Attending Provider Unknown Unavailab le [id number] Attending Provider Unknown Unavailab le [id number] Attending Provider Unknown Unavailab le Johnie Frazier Attending Provider [address] [place] [address] [phone] Attending Provider Unknown Unavailab le Rachel Hidalgo Primary Care Provider [address] [place] [address] Hector [place] [address] Brad Slaughter Admit Provider [address] [place] [address] Benny Raymundo Attending Provider [address] [place] [phone] Allergies, Adverse Reactions, Alerts No known allergies. Medications Medication Status Dose Units Route Sig Qty Days Start Date End Date Instructions Prednisone Discontin ued 0 Route .COMPL EX December 22, 2019 3:27pm December 30, 2019 4:34pm Taper as directed over ten days, then discontinue Cefpodoxime Discontin ued 200 MG ORAL Twice A Day December 22, 2019 3:27pm December 30, 2019 4:33pm for 7 days Diltiazem Hcl Discontin ued 240 MG ORAL DAILY December 22, 2019 3:27pm December 30, 2019 4:33pm Metoprolol Succinate Discontin ued 100 MG ORAL DAILY December 22, 2019 3:27pm December 30, 2019 4:34pm Benzonatate Active 100 MG ORAL 3 TIMES A DAY December 22, 2019 3:27pm Codeine-Guaife nesin Active 10 ML ORAL Q4H December 22, 2019 3:27pm Hydrochlorothi azide Discontin ued 25 MG ORAL DAILY December 22, 2019 3:27pm December 30, 2019 4:34pm Oxycodone Discontin ued 5 MG ORAL Q4H December 22, 2019 3:27pm December 30, 2019 4:34pm Tiotropium Banks Active 18 MCG INHALATI ON DAILY December 22, 2019 3:27pm Roflumilast Active 500 MCG ORAL DAILY 2019 3:27pm Apixaban Active 5 MG ORAL Twice A Day December 22, 2019 3:27pm Azelastine Active 2 SPRAY NASAL DAILY 2019 3:49pm Albuterol Sulfate Active 2 PUFF INHALATI ON Q4H December 22, 2019 3:49pm Budesonide-For moterol Active 2 PUFF INHALATI ON Twice A Day December 22, 2019 3:49pm Omeprazole Active 20 MG ORAL DAILY 2019 4:17pm Albuterol Sulfate Active 2 PUFF INHALATI ON Q4H December 22, 2019 4:17pm Vitamin E Active 1000 UNIT ORAL DAILY December 22, 2019 4:19pm Acetaminophen Active 650 MG ORAL Q6H Dec 4:19pm Vitamin B Complex Active 1 TAB ORAL DAILY December 22, 2019 4:19pm Multivitamin-I pete-Folic Acid Active 1 TAB ORAL DAILY December 22, 2019 4:19pm Furosemide Active 40 MG INTRAVEN 0800,1 600 240 December 30, 2019 4:33pm Ipratropium-Al buterol Active 1 AMP Via Nebulize r Q4H AROUND THE CLOCK (RESP) December 30, 2019 4:33pm Amiodarone Active 400 MG ORAL Q8H 36 6 2019 4:33pm Amiodarone Active 200 MG ORAL DAILY 2019 4:33pm to be started AFTER 400mg load completes Amlodipine Active 5 MG ORAL DAILY , 2020 4:33pm Acetazolamide Sodium Active 250 MG INTRAVEN DAILY 7 December 30, 2019 4:33pm Docusate Sodium Active 100 MG ORAL Twice A Day 60 December 30, 2019 4:33pm Budesonide Active 0.5 MG Via Nebulize r TWICE A DAY (RESP) 120 December 30, 2019 4:33pm Diltiazem Hcl Active 90 MG ORAL Q6H 120 Decry 2019 4:33pm Chlorhexidine Gluconate Active 15 ML MOUTH TOPICAL 3 TIMES A DAY December 30, 2019 4:33pm Sennosides Active 2 EACH ORAL AT BEDTIM E 60 December 30, 2019 4:35pm Prednisone Active 50 MG ORAL WITH BREAKF AST 10 December 30, 2019 4:35pm Please taper with 5 days of 25mg prednisone followed by return to hoem 10mg daily prednisone Lorazepam Active 0.5 MG ORAL Q12H 60 December 30, 2019 4:35pm Metoprolol Tartrate Active 50 MG ORAL Q6H 120 December 30, 2019 4:35pm Insulin Lispro Active 0 UNIT SUBCUTAN EOUS With Meals and at Bedtim e 30 December 30, 2019 4:35pm Sodium Chloride Active 2 SPRAY NASAL Q4H 10 December 30, 2019 4:35pm Problems Active Problems Medical Problem Onset Date Status Obstructive sleep apnea Active Chronic respiratory failure Acti ve Acute and chronic respiratory failure Active Atrial flutter Active H/O cardiac radiofrequency ablation Active Acute exacerbation of chronic obstructive pulmon chu disease Active Acute respiratory acidosis Activ e Procedures Procedure Date Performed Status Influenza Screen completed Relevant Diagnostic Tests and/or Laboratory Data Laboratory Results Test Date/Time Result Interpretation Reference Range Result Comment Performing Site White Blood Count 15.3 x10^3/uL 3.8-11.3 [facility] [address] [place] [address] 26788 Red Blood Count 4.94 x10^6/uL 4.7-6.1 [facility] [address] [place] [address] 95233 Hemoglobin 14.2 g/dL 13.0-17.0 [facility] [address] [place] [address] 72128 Hematocrit 44.6 % 38.0-49.0 [facility] [address] [place] [address] 12961 Mean Corpuscular Volume 90.3 fL 80-[address] [address] Mean Corpuscular Hemoglobin 28.7 pg 26.7-33.[address] [address] Mean Corpuscular Hemoglobin Concent 31.8 g/dL 31.6-35.[address] [address] RDW Coefficient of Variation 16.1 % 11.5-14.[address] [address] Platelet Count 151 x10^3/uL 150-[address] [address] Mean Platelet Volume 11.3 fL 7.4-13.[address] 044[address] Neutrophils (%) (Auto) 84.7 % 38.0-84.[address] [address] Lymphocytes (%) (Auto) 7.8 % 20.0-40.[address] [address] Monocytes (%) (Auto) 6.5 % 3.0-13.[address] 84464 Eosinophils (%) (Auto) 0.8 % 0.0-6.[address] [address] Basophils (%) (Auto) 0.2 % 0-2.[address] [address] Neutrophils % (Manual) 91.0 % 38-[address] [address] Lymphocytes % (Manual) 2.0 % 20-[address] 9[address] Monocytes % (Manual) 4.0 % 3-[address] [address] Band Neutrophils % (Manual) 2.0 % 0-[address] [address] Metamyelocyte s % (manual) 1.0 0-[address] 7[address] Red Blood Cell Morphology Normal Normal [address] [address] Platelet Estimate Adequate [address] [address] Smear Scan Auto diff confirmed [facility] [address] [place] [address] 70620 Prothrombin Time 11.8 Sec 9.4-12.5 [facility] [address] [place] [address] 57450 Prothromb Time International Ratio 1.0 0.8-1.1 INTERPRETIVE NOTE:No anticoagulant: 0.8 to 1.1Standard dose anticoagulant: 2.0 to 3.0High dose anticoagulant: 2.5 to 3.5Critical INR: > 5.0 [facility] [address] [place] [address] 30056 Urine Color Yellow Yellow [facility] [address] [place] [address] 95974 Urine Appearance Clear Clear [facility] [address] [place] [address] 96925 Urine Specific [place] 1.033 1.001-1.03 5 [facility] [address] [place] [address] 73589 Urine Leukocyte Esterase Negative Negative [facility] [address] [place] [address] 03552 Urine pH 5.0 pH 4.0-8.0 [facility] [address] [place] [address] 92346 Urine Protein 100 mg/dL Negative [facility] [address] [place] [address] 39805 Urine Glucose Negative mg/dL Negative [facility] [address] [place] [address] 58529 Urine Ketones Negative mg/dL Negative [facility] [address] [place] [address] 95565 Urine Bilirubin Negative Negative [facility] [address] [place] [address] 28084 Urine Nitrite Negative Negative [facility] [address] [place] [address] 74995 Urine Occult Blood Negative Negative [facility] [address] [place] [address] 47553 Urine WBC 0-2 [facility] [address] [place] [address] 68119 Urine RBC 0-2 /hpf [facility] [address] [place] [address] 24569 Urine Squamous Epithelial Cells Rare [facility] [address] [place] [address] 26622 Urine Hyaline Casts Rare None Seen [facility] [address] [place] [address] 38684 Urine Mucus Few Negative [facility] [address] [place] [address] 37944 Urine Bacteria Negative Negative [facility] [address] [place] [address] 75476 Sodium Level 136 MMOL/L 136-145 [facility] [address] [place] [address] 45061 Plasma Sodium 136 MMOL/L 136-145 [facility] [address] [place] [address] 02910 Potassium Level 3.9 MMOL/L 3.5-5.1 [facility] [address] [place] [address] 21582 Plasma Potassium 4.0 MMOL/L 3.5-5.[address] [address] Chloride Level 89 MMOL/L 98-[address] 6[address] Plasma Chloride 89 MMOL/L 98-[address] [address] Carbon Dioxide Level > 40 mmol/L 20-31 CRITICAL VALUE REPORTED AND READ BACK 30DEC2019 182 [facility] [address] [place] [address] 45647 Plasma Carbon Dioxide > 40 MMOL/L 21-32 CRITICAL VALUE REPORTED AND READ BACK 22DEC2019 1516 [facility] [address] [place] [address] 97873 Anion Gap TNP Test not performedUnable to calculate. [address] [address] Calcium Level 8.6 mg/dL 8.7-10.4 [facility] [address] [place] [address] 34380 Plasma Calcium 8.8 MG/DL 8.7-10.4 [facility] [address] [place] [address] 18468 Glucose Level 198 MG/DL 74-106 [facility] [address] [place] [address] 85169 Plasma Glucose Level 114 MG/DL 74-106 [facility] [address] [place] [address] 87798 Blood Urea Nitrogen 30 mg/gL 9-23 [facility] [address] [place] [address] 03647 Plasma Blood Urea Nitrogen 16 9-23 Note: New reference range and method effective 07/13/2019. [facility] [address] [place] [address] 57095 Creatinine 0.8 mg/dL 0.6-1.[address] [address]47 Plasma Creatinine 0.6 MG/DL 0.6-1.1 Note: New reference range and method effective 07/13/2019. [facility] [address] [place] [address] 11069 Estimated GFR (Non- 99.3 >60 Estimated GFR units = mL/min/1.73 m??IDMS traceable MDRD study equation in use effective 02/17/[address] [address] Estimated GFR () 120.3 >60 Estimated GFR units = mL/min/1.73 m??IDMS traceable MDRD study equation in use effective 02/17/[address] [address] Total Protein 6.1 g/dL 5.7-8.[address] [address]18 Total Protein 5.5 g/dL 5.7-8.[address] [address] Albumin 3.8 g/dL 3.2-4.[address] 92711 Albumin 4.3 g/dL 3.2-4.[address] [address] Direct Bilirubin 0.3 mg/dL 0.0-0.3 Delta: 0.1 on 11/30/19-[address] [address] Direct Bilirubin 0.1 mg/dL 0.0-0.[address] [address] Total Bilirubin 0.9 mg/dL 0-1.2 Delta: 0.4 on 11/30/19-[address] [address] Total Bilirubin 0.4 mg/dL 0-1.[address] 71461 Alkaline Phosphatase 52 U/L 46-[address] [address]294 Alkaline Phosphatase 57 U/L 46-[address] [address]247 Aspartate Amino Transf (AST/SGOT) 24 U/L 13-[address] [address]83 Aspartate Amino Transf (AST/SGOT) 34 U/L 13-[address] [address] Alanine Aminotransfer ase (ALT/SGPT) 39 U/L 7-40 Sulfasalazine may interfere with this assay, specimens should be drawn prior to dose. [address] [address] Alanine Aminotransfer ase (ALT/SGPT) 100 U/L 7-40 Sulfasalazine may interfere with this assay, specimens should be drawn prior to dose. [place] [address] Phosphorus Level 2.9 MG/DL 2.4-5.1 Note: New reference range and method effective 07/13/2019. [place] [address] B-Type Natriuretic Peptide 39.6 pg/mL <38.8 [place] [address] Fasting Glucose 91 MG/DL 74-99 [place] [address] POC Capillary Blood Glucose (Chem) 191 MG/DL 74-106 [place] [address] Hemoglobin A1c 6.2 % 4.0-5.6 NORMAL IS BELOW 5.7 %, CONFIRMED WITH REPEAT TESTINGPREDIABE TERRELL IS 5.7 - 6.4 %, CONFIRMED WITH REPEAT TESTINGDIABETES IS 6.5 % OR ABOVE, CONFIRMED WITH REPEAT TESTINGBASED ON 2013 ADA GUIDELINES [place] [address] Estimated Average Glucose 131 [place] [address] Magnesium Level 2.1 MG/DL 1.6-2.6 [place] [address] Prolactin 4.7 ng/mL 2.1-17.7 Please not e new reference ranges and method effective 07/13/2019.Norm ally Menstruating FemalesNon-Preg nant Females 2.8 - 29.2 ng/mL Females 9.7 - >200 ng/mLPostmenopa usal Females 1.8 - 20.3 ng/mLMales 2.1 - 17.7 ng/mL [place] [address] Troponin I 0.02 ng/mL 0.00-0.45 [facility] [place] [address] Procalcitonin 0.04 ng/ml 0-0.05 Resul t Interpretations :PCT =<0.5ng/mL: Systemic infection not likelyPCT >0.5 and =<2.0 ng/mL: Moderate risk for progression to systemic infectionPCT >2.0 ng/mL: High risk for progression to systemic infectionPCT >=10 ng/mL High likelihood of severe sepsis or septic shock. [address] [address] Rheumatoid Factor Negative NEGATIVE [place] [address] Anti-Nuclear Antibody Screen Negative NEGATIVE [address] [address] Venous Blood pH 7.44 7.32-7.43 [place] [address] Venous Blood Partial Pressure CO2 66 mmHg 41-51 [place] [address] Venous Blood Partial Pressure O2 55 mmHg 30-40 [place] [address] Venous Blood Oxygen Saturation 90.1 % 60.0-80.00 VBG O2 saturation result is dependent upon location the specimen is drawn from.VBG O2 saturation drawn from a PA catheter is the equivalent of a SvO2 (mixed venous oxygenation saturation)VBG O2 saturation drawn from a central line is the equivalent of a ScvO2 (central venous oxygenation saturation) [place] [address] Venous Blood HCO3 44 mmol/L 22-29 [place] [address] FiO2 [address] [address] Blood Gas Liter Flow 10 L/M 0-20 [place] [address] Blood Gas IPAP 20 cmH2O [place] [address] Blood Gas EPAP 5 cmH2O [address] [address] Blood Gas Respiration Rate [address] [address] Blood Gas Comments Hfnc [address] [address] Blood Gas Patient Temperature 36.[address] [address] Blood Gas Puncture Site Rta [place] [address] Proteinase 3 (PR3) <1.0 AI Value Interpretation <1.0 AI: No Antibody Detected >or=1.0 AI: Antibody DetectedAutoant ibodies to proteinase-3 (WV-3) are accepted ascharacteristi c for granulomatosis with polyangiitis(GP A, Gera's), and are detectabale in 95% of thehistological ly proven cases. The cytoplasmic IFApattern, (c-ANCA), is based largely on autoantibody toPR-3 which serves as the primary antigen. Theseautoantibo dies are present in active disease.THIS TEST WAS PERFORMED AT:[facility] [address] [address]Jjbog lobito Cooper M.D., Ph.D.,Director of Laboratories [facility], [address] Myeloperoxida se Antibody <1.0 AI Value [...] antigen. These autoantibodies are present inactive disease. [facility], [facility] [address] Microbiology Results Procedure Source Result Collection Date/Time Result Date/Time Result Comment Performing Site Influenza Screen Nares December 22, 2019 9:11pm [facility] [address] [place] [address] Diagnostic Imaging Reports Report Dictated Date/Time Dictated By Status Radiology Report December 22, 2019 3:35pm Oly Fernandez MD completed [facility] [phone] [place] [address] XRAY REPORT Signed Patient: OLY DOLAN MR#: [id number] : 1960 Acct:[id number] Age/Sex: 59 / M ADM Date: 0 Loc: ER Attending Dr: Ordering Physician: Hector Coronado MD Date of Service: 12/22/19 Procedure(s): XR chest 1V portable Accession Number(s): [id number] cc: Hector Coronado MD~ HISTORY: Shortness of [...] and Electronically Signed by: Oly Fernandez MD ([id number]) Dictated Date and Time:12/22/19 1535 Technologist: Pauline Rothman Electrocardiogram December 22, 2019 3:18pm Harshal Mccian MD completed [facility] [phone] [place] [address] ELECTROCARDIOGRAPH REPORT Signed Patient: OLY DOLAN MR#: [id number] : 1960 Acct:[id number] Age/Sex: 59 / M ADM Date: 0 Loc: ER Attending Dr: Ordering Physician: Hector Coronado MD Date of Service: 12/22/19 Procedure(s): CA EKG 12 lead Accession Number(s): [id number] cc: Hector Coronado MD~ Technologist: [facility] ED Test Date: 2019-12-22 Pat Name: OLY DOLAN Department: Room: Gender: Head Worker: Leigh : 1960 Requested By: Hector Oconnell Order Number: [id number] Reading MD: Adán Caputo MD Measurements Intervals [place] Rate: 99 P: WV: 0 QRS: -11 QRSD: 95 T: 65 QT: 324 QTc: 417 Interpretive Statements ATRIAL FIBRILLATION WITH ABERRANT CONDUCTION OR VENTRICULAR PREMATURE COMPLEXES LOW QRS VOLTAGE IN PRECORDIAL LEADS [QRS DEFLECTION < 1.0 mV IN CHEST LEADS] ABNORMAL RHYTHM ECG Electronically Signed On 12-22-2019 16:27:53 EST by Adán Caputo MD Dictated By: dAán Caputo MD Signed By: 12/22/19 1627 Dictated Date and Time: 12/22/198 Transcribed By: Adán Caputo MD Radiology Report December 26, 2019 10:43am J Ryan Mak MD completed [facility] [phone] [place] [address] REPORT Signed Patient: Oly Dolan MR#: [id number] : 1960 Acct:[id number] Age/Sex: 59 / M ADM Date: 0 Loc: A5 A519-[address]: Kimber Coello MD Ordering Physician: Kimber Coello MD Date of Service: 12/26/19 Procedure(s): CT angio chest PE protocol Accession Number(s): [id number] cc: Kimber Coello MD~ INDICATION: Shortness of [...] and Electronically Signed by: Obdulio Davis MD ([id number]) Dictated Date and Time:12/26/19 1043 Technologist: BRODERICK Hobson, CT Radiology Report December 26, 2019 10:47am Kourtney Mak MD completed [place] [phone] [address] [place] [address] ULTRASOUND REPORT Signed Patient: Oly Dolan MR#: [id number] : 1960 Acct:[id number] Age/Sex: 59 / M ADM Date: 0 Loc: A5 A519-[address]: Kimber Coello MD Ordering Physician: Kimber Coello MD Date of Service: 12/26/19 Procedure(s): US venous doppler LE BI Accession Number(s): [id number] cc: Kimber Coello MD~ History: Bilateral leg [...] and Electronically Signed by: Obdulio Davis MD ([id number]) Dictated Date and Time:12/26/19 1047 Technologist: Lopez Roque Radiology Report December 26, 2019 3:21pm Kourtney Mak MD completed [place] [phone] [place] [address] XRAY REPORT Signed Patient: Oly Dolan MR#: [id number] : 1960 Acct:[id number] Age/Sex: 59 / M ADM Date: 0 Loc: A5 A519-[address]: Kimber Coello MD Ordering Physician: Kimber Coello MD Date of Service: 12/26/19 Procedure(s): XR chest 2V Accession Number(s): [id number] cc: Kimber Coello MD~ EXAMINATION: Chest, two [...] and Electronically Signed by: Obdulio Davis MD ([id number]) Dictated Date and Time:12/26/19 152 Technologist: Lillian Breaux Radiology Report December 26, 2019 3:21pm Kourtney Mak MD completed [facility] [phone] [place] [address] NUCLEAR MEDICINE REPORT Signed Patient: Oly Dolan MR#: [id number] 4560 : 1960 Acct:[id number] Age/Sex: 59 / M ADM Date: 0 Loc: A5 A519-[address]: Kimber Coello MD Ordering Physician: Kimber Coello MD Date of Service: 12/26/19 Procedure(s): NM pul vent and perfuse Accession Number(s): [id number] cc: Kimber Coello MD~ EXAMINATION: Ventilation/Perfusion (V/Q) [...] and Electronically Signed by: Obdulio Davis MD ([id number]) Dictated Date and Time:12/26/19 1521 Technologist: KIMMY Bonilla Electrocardiogram December 26, 2019 4:05pm Lenora Barr MD completed [place] [phone] [place] [address] 27693 ELECTROCARDIOGRAPH REPORT Signed Patient: Oly Dolan MR#: [id number] : 1960 Acct:[id number] Age/Sex: 59 / M ADM Date: 0 Loc: CCU CCU-[address]: Benny Raymundo MD Ordering Physician: Benny Raymundo MD Date of Service: 12/26/19 Procedure(s): CA EKG 12 lead Accession Number(s): [id number] cc: Benny Raymundo MD~ Technologist: [facility] Test Date: 2019-12-26 Pat Name: Oly Dolan Department: Room: [facility] Gender: M Head Worker: Santana : 1960 Requested By: Benny Kumar Order Number: [id number] Reading MD: MOMO RUEDA Measurements Intervals [place] Rate: 117 P: WV: 0 QRS: -14 QRSD: 93 T: 73 QT: 285 QTc: 398 Interpretive Statements ATRIAL FIBRILLATION WITH RAPID VENTRICULAR RESPONSE LOW QRS VOLTAGE IN PRECORDIAL LEADS Electronically Signed On 12-26-2019 18:00:05 EST by MOMO RUEDA Dictated By: Momo Rueda MD Signed By: 12/26/19 1800 Dictated Date and Time: 12/26/19 1605 Transcribed By: Momo Rueda MD Radiology Report December 27, 2019 7:32am A Quirino Krause MD completed [place] [phone] [place] [address] XRAY REPORT Signed Patient: Oly Dolan MR#: [id number] 4560 : 1960 Acct:[id number] Age/Sex: 59 / M ADM Date: 0 Loc: CCU CCU-[address]: Benny Raymundo MD Ordering Physician: John Rick IV, MD Date of Service: 12/27/19 Procedure(s): XR chest 1V portable Accession Number(s): [id number] cc: John Rick IV, MD~ INDICATION: COPD [...] and Electronically Signed by: Jimi Win MD ([email or web address]) Dictated Date and Time:12/27/19 0732 Technologist: RT Racquel Beal Radiology Report December 28, 2019 7:46am Sanjay Aguilar MD completed [place] [phone] [place] [address] XRAY REPORT Signed Patient: Oly Dolan MR#: [id number] : 1960 Acct:[id number] Age/Sex: 59 / M ADM Date: 0 Loc: CCU CCU-[address]: Benny Raymundo MD Ordering Physician: Erum Means MD Date of Service: 12/28/19 Procedure(s): XR chest 1V portable Accession Number(s): [id number] cc: Erum Means MD~ HISTORY: COPD TECHNIQUE: [...] and Electronically Signed by: Jeff Grace MD ([id number]) Dictated Date and Time:12/28/19 0746 Technologist: Nathaly Tellez Radiology Report December 29, 2019 7:58am Sherrill Fairbanks MD completed [place] [phone] [place] [address] 69[address] XRAY REPORT Signed Patient: Oly Dolan MR#: [id number] : 1960 Acct:[id number] Age/Sex: 59 / M ADM Date: 0 Loc: CCU CCU-[address]: Benny Raymundo MD Ordering Physician: Erum Means MD Date of Service: 12/29/19 Procedure(s): XR chest 1V portable Accession Number(s): [id number] cc: Erum Means MD~ Portable Chest AP: [...] and Electronically Signed by: Magdi Hirsch MD ([id number]) Dictated Date and Time:12/29/19 0758 Technologist: Nathaly Tellez Advance Directives Advance Directive Response Recorded Date/ Time Do you have a Health Care Proxy Declined December 29, 2019 11:33pm MOLST Form Reviewed/Completed With Patient No December 22, 2019 7:57pm Chief Complaint and Reason for Visit Chief Complaint Image Encounter Appointment Non-Appointment Appointment Image Encounter Image Encounter Tonger Encounter Image Encounter Appointment G47.33 Image Encounter Image Encounter Non-Appointment Non-Appointment Non-Appointment Image Encounter Non-Appointment Image Encounter Appointment G47.33 I27.20 COPD EXACERBATION Reason for Visit Atrial flutter H/O cardiac radiofrequency ablation Chronic respiratory failure Obstructive sleep apnea Acute and chronic respiratory failure Acute exacerbation of chronic obstructive pulmonary disease Acute respiratory acidosis Encounters Encounter Location(s) Arrival/Admit Date Discharge/Depart Date Provider(s) Registered Physician/Provi leticia Office Visit [facility]- January 04, 2019 12:00am null Registered Physician/Provi letiica Office Visit [facility]- January 05, 2019 12:00am null Registered Physician/Provi leticia Office Visit [facility]- January 07, 2019 12:00am null Registered Physician/Provi leticia Office Visit [facility]- March 11, 2019 12:00am null Registered Physician/Provi leticia Office Visit [facility]- March 18, 2019 12:00am null Registered Physician/Provi leticia Office Visit [facility]- March 26, 2019 12:00am null Registered Physician/Provi leticia Office Visit [facility]- April 07, 2019 12:00am null Registered Physician/Provi leticia Office Visit [facility]- April 12, 2019 12:00am null Registered Physician/Provi leticia Office Visit [facility]- April 13, 2019 12:00am null Registered Referred [facility] April 13, 2019 8:15am Kourtney Jett MD Registered Physician/Provi leticia Office Visit [facility]- May 24, 2019 12:00am null Registered Physician/Provi leticia Office Visit [facility] [facility]- June 20, 2019 12:00am null Registered Physician/Provi leticia Office Visit [facility]- July 09, 2019 12:00am null Registered Physician/Provi leticia Office Visit [facility]- July 10, 2019 12:00am null Registered Physician/Provi leticia Office Visit [facility]- July 16, 2019 12:00am null Registered Physician/Provi leticia Office Visit [facility]- July 21, 2019 12:00am null Registered Physician/Provi leticia Office Visit [facility]- July 22, 2019 12:00am null Registered Physician/Provi leticia Office Visit [facility]- August 23, 2019 12:00am null Registered Physician/Provi leticia Office Visit [facility]- August 24, 2019 12:00am null Registered Referred [facility] August 24, 2019 8:00am Kourtney Jett MD Registered Referred [facility] Internal Medicine November 30, 2019 3:00pm Kourtney Jett MD Registered [facility] November 30, 2019 4:10pm Kourtney Jett MD Registered 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 Mental Status Observation Response Date Recorded Comprehension Ability Understands Concepts Janua ry 2019 10:23am Medical Equipment No Medical Equipment Information available Insurance Providers Guarantor Oly Alell Address [address] [place] [phone] Contact Info. Home Phone: Payer Policy Id Coverage Id Subscriber's Name Subscriber Id Effective Date Expiration Date [facility] [id number] Anurag Owens [id number] [employer] PLAN [id number] Oly Dolan [id number] [employer] PPO [id number] Anurag Owens [id number] SELF PAY Plan of Treatment Future Tests Future scheduled test information is unavailable Pending Tests Pending diagnostic test information is unavailable Future Visits Future appointment information is unavailable Referrals to Other Providers Reason for Referral Referral Start Date Provider Provider Contact Information Provider Address Gwen Ramos Work Phone: [address] [address] Future Procedures Future procedure information is unavailable Future Medications Future medication information is unavailable Patient Instructions Patient instructions are unavailable Social History Smoking Status Status Date of Observation Ex-smoker (finding) December 30, 2019 4 :14pm Observation Status Observation Response Date of Response Smoking Status Former smoker December 30 4:14pm Assigned Sex Male Vital Signs Vital Reading Result Reference Range Collection Date/Time Height 71 [in_i] December 29, 020 6:00am Weight 157.30 kg December 29 020 6:00am Body Temperature 97.6 [degF] 96.5-101.5 December 7:22pm Heart Rate 82 /min 50-110 December 30, 020 7:22pm Respiratory rate 21 /min 12-20 December 7:22pm Oxygen saturation by Pulse oximetry 96 % 95-100 December 30, 2019 7 :22pm BP Systolic 120 mm[Hg] 100-180 December 30, 2 020 7:22pm BP Diastolic 66 mm[Hg] 70-85 December 30, 2 020 7:22pm BMI (Body Mass Index) 48.3 kg/m2 y 2019 6:00am
--- OUTSIDE RECORDS SUMMARY | 2024-01-12 17:50 | XMS_ITS | Continuity of Care Document ---
Author Name Unknown Address [address] [place] [address] Phone [facility] Address [address] [place] [address] Phone Allergies, Adverse Reactions, Alerts No known [...] 2019 3:27pm December 30, 2019 4:34pm Tiotropium [place] (Spiriva With Handihaler) 18 mcg capsule, w/inhalation [...] Sodium Chloride (Deep Sea Nasal) 0.65 % Aerosol,[place] Discontinu ed 2 SPRAY NA Q4H 10 [...] available Insurance Providers Guarantor Oly Tamayo Address [address] [place] [phone] Contact Info. Home Phone: Payer Policy Id Coverage Id Subscriber's Name Subscriber Id Effective Date Expiration Date [employer] [facility] [id number] OLY TAMAYO [id number] [employer]AN [id number] Oly Tamayo [id number] [employer] PPO [id number] Aunrag Owens [id number] SELF PAY Plan of Treatment Future Tests Future scheduled test information is unavailable Pending Tests Pending diagnostic test information is unavailable Future Visits Future appointment information is unavailable Referrals to Other Providers Reason for Referral Referral Start Date Provider Provider Contact Information Provider Address Gwen Ramos MD Work Phone: [address] [address] Future Procedures Future procedure information is unavailable Future Medications Future medication information is unavailable Patient Instructions Patient instructions are unavailable Social History Smoking Status Status Date of Observation Ex-smoker (finding) December 30, 2019 4 :14pm Observation Status Observation Response Date of Response Smoking Status Former smoker December 30 4:14pm Assigned Sex Male
--- OUTSIDE RECORDS SUMMARY | 2024-01-12 17:50 | XMS_ITS | Continuity of Care Document ---
Author Name Unknown Address [address] [place] [address] Phone Organization Formerly [facility] Address [address] [place] [address] Phone Support Name Relationship Address Phone St Shashank Yuan [address] [place] [phone] [phone] Attending Provider Unknown Unavailab le [id number] Attending Provider Unknown Unavailab le [id number] Attending Provider Unknown Unavailab le Johnie Frazier Attending Provider [address] [place] [address] [phone] Attending Provider Unknown Unavailab le Rachel Hidalgo Primary Care Provider [address] [place] [address] Hector Coronado [place] [address] Brad Slaughter Admit Provider [address] [place] [address] Benny Raymundo Attending Provider [address] [place] [address] 81[address] Allergies, Adverse Reactions, Alerts No known allergies. [...] 2019 3:27pm December 30, 2019 4:34pm Tiotropium [place] Active 18 MCG INHALATI ON DAILY December [...] Site White Blood Count 15.3 x10^3/uL 3.8-11.3 [facility] [address] [place] [address] 73343 Red Blood Count 4.94 x10^6/uL 4.7-6.1 [facility] [address] [place] [address] 56676 Hemoglobin 14.2 g/dL 13.0-17.0 [facility] [address] [place] [address] 23320 Hematocrit 44.6 % 38.0-49.0 [facility] [address] [place] [address] 59296 Mean Corpuscular Volume 90.3 fL 80-[address] [address] Mean Corpuscular Hemoglobin 28.7 pg 26.7-33.[address] 39554 Mean Corpuscular Hemoglobin Concent 31.8 g/dL 31.6-35.[address] [address] RDW Coefficient of Variation 16.1 % 11.5-14.[address] [address]479 Platelet Count 151 x10^3/uL 150-[address] [address] Mean Platelet Volume 11.3 fL 7.4-13.[address] 10424 Neutrophils (%) (Auto) 84.7 % 38.0-84.[address] 10640 Lymphocytes (%) (Auto) 7.8 % 20.0-40.[address] [address]178 Monocytes (%) (Auto) 6.5 % 3.0-13.[address] 86535 Eosinophils (%) (Auto) 0.8 % 0.0-6.[address] [address]77 Basophils (%) (Auto) 0.2 % 0-2.[address] 97637 Neutrophils % (Manual) 91.0 % 38-[address] 105[address] Lymphocytes % (Manual) 2.0 % 20-[address] [address] Monocytes % (Manual) 4.0 % 3-[address] 9[address] Band Neutrophils % (Manual) 2.0 % 0-[address] 74[address] Metamyelocyte s % (manual) 1.0 0-[address] 30431 Red Blood Cell Morphology Normal Normal [address] 787[address] Platelet Estimate Adequate [address] [address] Smear Scan Auto diff confirmed [facility] [address] [place] [address] 75369 Prothrombin Time 11.8 Sec 9.4-12.5 [facility] [address] [place] [address] 20873 Prothromb Time International Ratio 1.0 0.8-1.1 INTERPRETIVE NOTE:No anticoagulant: 0.8 to 1.1Standard dose anticoagulant: 2.0 to 3.0High dose anticoagulant: 2.5 to 3.5Critical INR: > 5.0 [facility] [address] [place] [address] 28288 Urine Color Yellow Yellow [facility] [address] [place] [address] 25576 Urine Appearance Clear Clear [facility] [address] [place] [address] 72940 Urine Specific Patterson 1.033 1.001-1.03 5 [facility] [address] [place] [address] 44283 Urine Leukocyte Esterase Negative Negative [facility] [address] [place] [address] 47537 Urine pH 5.0 pH 4.0-8.0 [facility] [address] [place] [address] 23678 Urine Protein 100 mg/dL Negative [facility] [address] [place] [address] 41894 Urine Glucose Negative mg/dL Negative [facility] [address] [place] [address] 73781 Urine Ketones Negative mg/dL Negative [facility] [address] [place] [address] 55899 Urine Bilirubin Negative Negative [facility] [address] [place] [address] 29516 Urine Nitrite Negative Negative [facility] [address] [place] [address] 23780 Urine Occult Blood Negative Negative [facility] [address] [place] [address] 40788 Urine WBC 0-2 [facility] [address] [place] [address] 80278 Urine RBC 0-2 /hpf [facility] [address] [place] [address] 76597 Urine Squamous Epithelial Cells Rare [facility] [address] [place] [address] 00437 Urine Hyaline Casts Rare None Seen [facility] [address] [place] [address] 85688 Urine Mucus Few Negative [facility] [address] [place] [address] 29127 Urine Bacteria Negative Negative [facility] [address] [place] [address] 65900 Sodium Level 136 MMOL/L 136-145 [facility] [address] [place] [address] 24461 Plasma Sodium 136 MMOL/L 136-145 [facility] [address] [place] [address] 51070 Potassium Level 3.9 MMOL/L 3.5-5.1 [facility] [address] [place] [address] 20327 Plasma Potassium 4.0 MMOL/L 3.5-5.[address] [address] Chloride Level 89 MMOL/L 98-[address] 17091 Plasma Chloride 89 MMOL/L 98-[address] [address]26 Carbon Dioxide Level > 40 mmol/L 20-31 CRITICAL VALUE REPORTED AND READ BACK 30DEC2019 182 [facility] [address] [place] [address] 96421 Plasma Carbon Dioxide > 40 MMOL/L 21-32 CRITICAL VALUE REPORTED AND READ BACK 22DEC2019 1516 [facility] [address] [place] [address] 58756 Anion Gap TNP Test not performedUnable to calculate. [address] [address] Calcium Level 8.6 mg/dL 8.7-10.4 [facility] [address] [place] [address] 46578 Plasma Calcium 8.8 MG/DL 8.7-10.4 [facility] [address] [place] [address] 05282 Glucose Level 198 MG/DL 74-106 [facility] [address] [place] [address] 73270 Plasma Glucose Level 114 MG/DL 74-106 [facility] [address] [place] [address] 35263 Blood Urea Nitrogen 30 mg/gL 9-23 [facility] [address] [place] [address] 98992 Plasma Blood Urea Nitrogen 16 9-23 Note: New reference range and method effective 07/13/2019. [facility] [address] [place] [address] 81898 Creatinine 0.8 mg/dL 0.6-1.[address] [address] Plasma Creatinine 0.6 MG/DL 0.6-1.1 Note: New reference range and method effective 07/13/2019. [facility] [address] [place] [address] 16483 Estimated GFR (Non- 99.3 >60 Estimated GFR units = mL/min/1.73 m??IDMS traceable MDRD study equation in use effective 02/17/[address] [address] Estimated GFR () 120.3 >60 Estimated GFR units = mL/min/1.73 m??IDMS traceable MDRD study equation in use effective 02/17/[address] 64600 Total Protein 6.1 g/dL 5.7-8.[address] 48572 Total Protein 5.5 g/dL 5.7-8.[address] 00388 Albumin 3.8 g/dL 3.2-4.[address] 98884 Albumin 4.3 g/dL 3.2-4.[address] [address]60 Direct Bilirubin 0.3 mg/dL 0.0-0.3 Delta: 0.1 on 11/30/19-[address] [address]704 Direct Bilirubin 0.1 mg/dL 0.0-0.[address] 75449 Total Bilirubin 0.9 mg/dL 0-1.2 Delta: 0.4 on 11/30/19-[address] 35473 Total Bilirubin 0.4 mg/dL 0-1.[address] 03024 Alkaline Phosphatase 52 U/L 46-[address] 83495 Alkaline Phosphatase 57 U/L 46-[address] [address]86 Aspartate Amino Transf (AST/SGOT) 24 U/L 13-[address] 10018 Aspartate Amino Transf (AST/SGOT) 34 U/L 13-[address] [address]45 Alanine Aminotransfer ase (ALT/SGPT) 39 U/L 7-40 Sulfasalazine may interfere with this assay, specimens should be drawn prior to dose. [address] [address] Alanine Aminotransfer ase (ALT/SGPT) 100 U/L 7-40 Sulfasalazine may interfere with this assay, specimens should be drawn prior to dose. [place] [address] Phosphorus Level 2.9 MG/DL 2.4-5.1 Note: New reference range and method effective 07/13/2019. [place] [address] B-Type Natriuretic Peptide 39.6 pg/mL <38.8 [place] [address] Fasting Glucose 91 MG/DL 74-99 [place] [address] POC Capillary Blood Glucose (Chem) 191 MG/DL 74-106 [place] [address] Hemoglobin A1c 6.2 % 4.0-5.6 NORMAL IS BELOW 5.7 %, CONFIRMED WITH REPEAT TESTINGPREDIABE TERRELL IS 5.7 - 6.4 %, CONFIRMED WITH REPEAT TESTINGDIABETES IS 6.5 % OR ABOVE, CONFIRMED WITH REPEAT TESTINGBASED ON 2013 ADA GUIDELINES [place] [address] Estimated Average Glucose 131 [place] [address] Magnesium Level 2.1 MG/DL 1.6-2.6 [place] [address] Prolactin 4.7 ng/mL 2.1-17.7 Please not e new reference ranges and method effective 07/13/2019.Norm ally Menstruating FemalesNon-Preg nant Females 2.8 - 29.2 ng/mL Females 9.7 - >200 ng/mLPostmenopa usal Females 1.8 - 20.3 ng/mLMales 2.1 - 17.7 ng/mL [place] [address] Troponin I 0.02 ng/mL 0.00-0.45 [facility] [place] [address] Procalcitonin 0.04 ng/ml 0-0.05 Resul t Interpretations :PCT =<0.5ng/mL: Systemic infection not likelyPCT >0.5 and =<2.0 ng/mL: Moderate risk for progression to systemic infectionPCT >2.0 ng/mL: High risk for progression to systemic infectionPCT >=10 ng/mL High likelihood of severe sepsis or septic shock. [address] [address] Rheumatoid Factor Negative NEGATIVE [place] [address] Anti-Nuclear Antibody Screen Negative NEGATIVE [address] [address] Venous Blood pH 7.44 7.32-7.43 [place] [address] Venous Blood Partial Pressure CO2 66 mmHg 41-51 [place] [address] Venous Blood Partial Pressure O2 55 mmHg 30-40 [place] [address] Venous Blood Oxygen Saturation 90.1 % 60.0-80.00 VBG O2 saturation result is dependent upon location the specimen is drawn from.VBG O2 saturation drawn from a PA catheter is the equivalent of a SvO2 (mixed venous oxygenation saturation)VBG O2 saturation drawn from a central line is the equivalent of a ScvO2 (central venous oxygenation saturation) [place] [address] Venous Blood HCO3 44 mmol/L 22-29 [place] [address] FiO2 [address] [address] Blood Gas Liter Flow 10 L/M 0-20 [place] [address] Blood Gas IPAP 20 cmH2O [place] [address] Blood Gas EPAP 5 cmH[address] [address]83 Blood Gas Respiration Rate [address] 5[address] Blood Gas Comments Hfnc [address] [address] Blood Gas Patient Temperature 36.[address] [address] Blood Gas Puncture Site Rta [place] [address] Proteinase 3 (PR3) <1.0 AI Value Interpretation <1.0 AI: No Antibody Detected >or=1.0 AI: Antibody DetectedAutoant ibodies to proteinase-3 (WY-3) are accepted ascharacteristi c for granulomatosis with polyangiitis(GP A, Gera's), and are detectabale in 95% of thehistological ly proven cases. The cytoplasmic IFApattern, (c-ANCA), is based largely on autoantibody toPR-3 which serves as the primary antigen. Theseautoantibo dies are present in active disease.THIS TEST WAS PERFORMED AT:[facility] [address] [address]Yvaro lobito Cooper M.D., Ph.D.,Director of Laboratories [facility], [address] Myeloperoxida se Antibody <1.0 AI Value [...] antigen. These autoantibodies are present inactive disease. [facility], [facility] [address] Microbiology Results Procedure Source Result Collection Date/Time Result Date/Time Result Comment Performing Site Influenza Screen Nares December 22, 2019 9:11pm [facility] [address] [place] [address] Diagnostic Imaging Reports Report Dictated Date/Time Dictated By Status Radiology Report December 22, 2019 3:35pm Oly Fernandez MD completed [facility] [phone] [place] [address] XRAY REPORT Signed Patient: OLY DOLAN MR#: [id number] : 1960 Acct:[id number] Age/Sex: 59 / M ADM Date: 0 Loc: ER Attending Dr: Ordering Physician: Hector Coronado MD Date of Service: 12/22/19 Procedure(s): XR chest 1V portable Accession Number(s): [id number] cc: Hector Coronado MD~ HISTORY: Shortness of [...] and Electronically Signed by: Oly Fernandez MD ([id number]) Dictated Date and Time:12/22/19 1535 Technologist: Pauline Rothman Electrocardiogram December 22, 2019 3:18pm Harshal Mccain MD completed [facility] [phone] [place] [address]396 ELECTROCARDIOGRAPH REPORT Signed Patient: OLY DOLAN MR#: [id number] : 1960 Acct:[id number] Age/Sex: 59 / M ADM Date: 0 Loc: ER Attending Dr: Ordering Physician: Hector Coronado MD Date of Service: 12/22/19 Procedure(s): CA EKG 12 lead Accession Number(s): [id number] cc: Hector Coronado MD~ Technologist: [facility] ED Test Date: 2019-12-22 Pat Name: OLY DOLAN Department: Room: Gender: Direct Mail Marketer: Leigh : 1960 Requested By: Hector Oconnell Order Number: [id number] Reading MD: Adán Caputo MD Measurements Intervals Epes Rate: 99 P: WY: 0 QRS: -11 QRSD: 95 T: 65 [...] 2019 10:43am J Ryan Mak MD completed [facility] [phone] [place] [address] REPORT Signed Patient: Oly Dolan MR#: [id number] : 1960 Acct:[id number] Age/Sex: 59 / M ADM Date: 0 Loc: A5 A519-[address]: Kimber Coello MD Ordering Physician: Kimber Coello MD Date of Service: 12/26/19 Procedure(s): CT angio chest PE protocol Accession Number(s): [id number] cc: Kimber Coello MD~ INDICATION: Shortness of [...] and Electronically Signed by: Obdulio Davis MD ([id number]) Dictated Date and Time:12/26/19 1043 Technologist: BRODERICK Hobson, CT Radiology Report December 26, 2019 10:47am Kourtney Mak MD completed [place] [phone] [address] [place] [address] ULTRASOUND REPORT Signed Patient: Oly Dolan MR#: [id number] : 1960 Acct:[id number] Age/Sex: 59 / M ADM Date: 0 Loc: A5 A519-[address]: Kimber Coello MD Ordering Physician: Kimber Coello MD Date of Service: 12/26/19 Procedure(s): US venous doppler LE BI Accession Number(s): [id number] cc: Kimber Coello MD~ History: Bilateral leg [...] and Electronically Signed by: Obdulio Davis MD ([id number]) Dictated Date and Time:12/26/19 1047 Technologist: Lopez Roque Radiology Report December 26, 2019 3:21pm Kourtney Mak MD completed [place] [phone] [place] [address] XRAY REPORT Signed Patient: Oly Dolan MR#: [id number] : 1960 Acct:[id number] Age/Sex: 59 / M ADM Date: 0 Loc: A5 A519-[address]: Kimber Coello MD Ordering Physician: Kimber Coello MD Date of Service: 12/26/19 Procedure(s): XR chest 2V Accession Number(s): [id number] cc: Kimber Coello MD~ EXAMINATION: Chest, two [...] and Electronically Signed by: Obdulio Davis MD ([id number]) Dictated Date and Time:12/26/19 152 Technologist: Lillian Breaux Radiology Report December 26, 2019 3:21pm Kourtney Mak MD completed [facility] [phone] [place] [address] NUCLEAR MEDICINE REPORT Signed Patient: Oly Dolan MR#: [id number] : 1960 Acct:[id number] Age/Sex: 59 / M ADM Date: 0 Loc: A5 A519-[address]: Kimber Coello MD Ordering Physician: Kimber Coello MD Date of Service: 12/26/19 Procedure(s): NM pul vent and perfuse Accession Number(s): [id number] cc: Kimber Coello MD~ EXAMINATION: Ventilation/Perfusion (V/Q) [...] and Electronically Signed by: Obdulio Davis MD ([id number]) Dictated Date and Time:12/26/19 1521 Technologist: KIMMY Bonilla Electrocardiogram December 26, 2019 4:05pm Lenora Barr MD completed [place] [phone] [place] [address] 73441 ELECTROCARDIOGRAPH REPORT Signed Patient: Oly Dolan MR#: [id number] : 1960 Acct:[id number] Age/Sex: 59 / M ADM Date: 0 Loc: CCU CCU-[address]: Benny Raymundo MD Ordering Physician: Benny Raymundo MD Date of Service: 12/26/19 Procedure(s): CA EKG 12 lead Accession Number(s): [id number] cc: Benny Raymundo MD~ Technologist: [facility] Test Date: 2019-12-26 Pat Name: Oly Dolan Department: Room: [facility] Gender: M Direct Mail Marketer: Santana : 1960 Requested By: Benny Kumar Order Number: [id number] Reading MD: MOMO RUEDA Measurements Intervals Epes Rate: 117 P: WY: 0 QRS: -14 QRSD: 93 T: 73 [...] 2019 7:32am A Quirino Krause MD completed [place] [phone] [place] [address]997 XRAY REPORT Signed Patient: Oly Dolan MR#: [id number] : 1960 Acct:[id number] Age/Sex: 59 / M ADM Date: 0 Loc: CCU CCU-[address]: Benny Raymundo MD Ordering Physician: John Rick IV, MD Date of Service: 12/27/19 Procedure(s): XR chest 1V portable Accession Number(s): [id number] cc: John Rick IV, MD~ INDICATION: COPD [...] 28, 2019 7:46am Sanjay Aguilar MD completed [place] [phone] [place] [address] XRAY REPORT Signed Patient: Oly Dolan MR#: [id number] : 1960 Acct:[id number] Age/Sex: 59 / M ADM Date: 0 Loc: CCU CCU-[address]: Benny Raymundo MD Ordering Physician: Erum Means MD Date of Service: 12/28/19 Procedure(s): XR chest 1V portable Accession Number(s): [id number] cc: Erum Means MD~ HISTORY: COPD TECHNIQUE: [...] and Electronically Signed by: Jeff Grace MD ([id number]) Dictated Date and Time:12/28/19 0746 Technologist: Nathaly Tellez Radiology Report December 29, 2019 7:58am Sherrill Fairbanks MD completed [place] [phone] [place] [address] XRAY REPORT Signed Patient: Oly Dolan MR#: [id number] : 1960 Acct:[id number] Age/Sex: 59 / M ADM Date: 0 Loc: CCU CCU-[address]: Benny Raymundo MD Ordering Physician: Erum Means MD Date of Service: 12/29/19 Procedure(s): XR chest 1V portable Accession Number(s): [id number] cc: Erum Means MD~ Portable Chest AP: [...] and Electronically Signed by: Magdi Hirsch MD ([id number]) Dictated Date and Time:12/29/19 0758 Technologist: Nathaly Tellez Advance Directives Advance Directive Response Recorded Date/ Time Do you have a Health Care Proxy Declined December 29, 2019 11:33pm MOLST Form Reviewed/Completed With Patient No December 22, 2019 7:57pm Chief Complaint and Reason for Visit Chief Complaint Image Encounter Appointment Non-Appointment Appointment Image Encounter 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 Image Encounter Appointment G47.33 Image Encounter [...] Date Provider(s) Registered Physician/Provi leticia Office Visit [facility]- January 04, 2019 12:00am null Registered Physician/Provi leticia Office Visit [facility]- January 05, 2019 12:00am null Registered Physician/Provi leticia Office Visit [facility]- January 07, 2019 12:00am null Registered Physician/Provi leticia Office Visit [facility]- March 11, 2019 12:00am null Registered Physician/Provi leticia Office Visit [facility]- March 18, 2019 12:00am null Registered Physician/Provi leticia Office Visit [facility]- March 26, 2019 12:00am null Registered Physician/Provi leticia Office Visit [facility]- April 07, 2019 12:00am null Registered Physician/Provi leticia Office Visit [facility]- April 12, 2019 12:00am null Registered Physician/Provi leticia Office Visit [facility]- April 13, 2019 12:00am null Registered Referred [facility] April 13, 2019 8:15am Kourtney Jett MD Registered Physician/Provi leticia Office Visit [facility]- May 24, 2019 12:00am null Registered Physician/Provi leticia Office Visit [facility]- June 20, 2019 12:00am null Registered Physician/Provi leticia Office Visit [facility]- July 09, 2019 12:00am null Registered Physician/Provi leticia Office Visit [facility]- July 10, 2019 12:00am null Registered Physician/Provi leticia Office Visit [facility]- July 16, 2019 12:00am null Registered Physician/Provi leticia Office Visit [facility]- July 21, 2019 12:00am null Registered Physician/Provi leticia Office Visit [facility]- July 22, 2019 12:00am null Registered Physician/Provi leticia Office Visit [facility]- August 23, 2019 12:00am null Registered Physician/Provi leticia Office Visit [facility]- August 24, 2019 12:00am null Registered Referred [facility] August 24, 2019 8:00am Kourtney Jett MD Registered Referred [facility] Medicine November 30, 2019 3:00pm Kourtney Jett MD Registered Referred [facility] November 30, 2019 4:10pm Kourtney Jett MD Registered [facility]erred 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 Home Phone: Payer Policy Id Coverage Id Subscriber's Name Subscriber Id Effective Date Expiration Date [facility] [id number] Anurag Owens [id number] [employer] OUT OF STATE PLAN [id number] Oly Dolan [id number] [employer] PPO [id number] Anurag Owens [id number] SELF PAY Plan of Treatment Future Tests Future scheduled test information is unavailable Pending Tests Pending diagnostic test information is unavailable Future Visits Future appointment information is unavailable Referrals to Other Providers Reason for Referral Referral Start Date Provider Provider Contact Information Provider Address Gwen Ramos Work Phone: [address] [address] Future Procedures Future procedure information is unavailable [...]
--- OUTSIDE RECORDS SUMMARY | 2024-01-12 17:50 | XMS_ITS | Continuity of Care Document ---
Author Name Unknown Address [address] [place] [address] Phone [facility] Address [address] [place] [address] Phone Allergies, Adverse Reactions, Alerts No known [...] 2019 3:27pm December 30, 2019 4:34pm Tiotropium [place] (Spiriva With Handihaler) 18 mcg capsule, w/inhalation [...] Sodium Chloride (Deep Sea Nasal) 0.65 % Aerosol,[place] Discontinu ed 2 SPRAY NA Q4H 10 [...] available Insurance Providers Guarantor Oly Tamayo Address [address] [place] [id number] Contact Info. Home Phone: Payer Policy Id Coverage Id Subscriber's Name Subscriber Id Effective Date Expiration Date BLUE CROSS [facility] [id number] OLY TAMAYO [id number] BLUE CROSS OUT OF STATE PLAN [id number] Oly Tamayo [id number] BLUE CROSS PPO [id number] Anurag Owens [id number] SELF PAY Plan of Treatment Future Tests Future scheduled test information is unavailable Pending Tests Pending diagnostic test information is unavailable Future Visits Future appointment information is unavailable Referrals to Other Providers Reason for Referral Referral Start Date Provider Provider Contact Information Provider Address Gwen Ramos MD Work Phone: [address] [address] Future Procedures Future procedure information is unavailable Future Medications Future medication information is unavailable Patient Instructions Patient instructions are unavailable Social History Smoking Status Status Date of Observation Ex-smoker (finding) December 30, 2019 4 :14pm Observation Status Observation Response Date of Response Smoking Status Former smoker December 30 4:14pm Assigned Sex Male
--- OUTSIDE RECORDS SUMMARY | 2024-01-12 17:50 | XMS_ITS | Continuity of Care Document ---
Author Name Unknown Address [address] [place] [address] Phone Organization [facility] Address [address] [place] [address] Phone Support Name Relationship Address Phone St Shashank Yuan [address] [place] [address] Johnie Frazier Attending Provider [address] [place] [address] Rachel Hidalgo Primary Care Provider [address] [place] [address] Allergies, Adverse Reactions, Alerts No known allergies. [...] 2019 3:27pm December 30, 2019 4:34pm Tiotropium [place] (Spiriva With Handihaler) 18 mcg capsule, w/inhalation [...] Sodium Chloride (Deep Sea Nasal) 0.65 % Aerosol,[place] Discontinu ed 2 SPRAY NA Q4H 10 December 30, 2019 4:35pm Februar y 2019 12:03am Discontinu ed 0.5 ML IM Once 0.5 Augembe r 2019 9:10am Septemb er 2019 10:06am [place]-3 Fatty Acids (Fish Oil Concentrate) 1,000 mg [...] Arrival/Admit Date Discharge/Depart Date Provider(s) Registered Inpatient [facility] Pulmonary August 29, 2020 [...] Event Date Not Given Reason Dose Number [address] [facility] Magistrate Lot Number Vaccine Information Statement (VIS) Detail Quadravalent Influenza Vaccine August 29, 2020 [id number] Mental Status No Mental Status Information Available Medical Equipment No Medical Equipment Information available Insurance Providers Guarantor OLY BELKIS Address [address] [place] [address] Contact Info. Home Phone: Payer Policy Id Coverage Id Subscriber's Name Subscriber Id Effective Date Expiration Date BLUE CROSS [facility] [id number] OLY TAMAYO [id number] BLUE CROSS OUT OF STATE PLAN [id number] OLY TAMAYO [id number] BLUE CROSS PPO [id number] Anurag Owens [id number] SELF PAY Plan of Treatment Future Tests Future scheduled test information is unavailable Pending Tests Pending diagnostic test information is unavailable Future Visits Future appointment information is unavailable Referrals to Other Providers Reason for Referral Referral Start Date Provider Provider Contact Information Provider Address Gwen Ramos MD Work Phone: [address] [address] Future Procedures Future procedure information is unavailable [...]
[2024-01-12 17:54] LABS: Bacteria Urine None Seen (None Seen); Hyaline Casts Urine 0-2 /LPF (0-2); RBC Urine 0-2 /HPF (0-2); Squamous Epithelial Cell Urine 0-2 /HPF (0-2); WBC Urine 0-5 /HPF (0-5)
[2024-01-12] MEDS: iohexoL 350 MG/ML 100 ML INFUS..BTL IV (17:58)
[2024-01-12 17:59] LABS: Alanine Aminotransferase 29 U/L (0-40); Albumin Level 3.9 g/dL (3.5-5.0); Alkaline Phosphatase 51 U/L (39-117); Anion Gap 15 (12-20); Aspartate Amino Transferase 23 U/L (5-37); Bilirubin Total 0.5 mg/dL (0.0-1.0); Blood Urea Nitrogen 20 mg/dL (9-16); Calcium 8.8 mg/dL (8.4-10.2); Carbon Dioxide 37 mmol/L (22-29); Chloride 98 mmol/L (96-108); Creatinine Clr Calc Pharmacy 151.1; Estimated Glomerular Filt Rate > 60; Glucose Random 106 mg/dL (60-115); Potassium 5.5 mmol/L (3.3-5.1); Sodium 144 mmol/L (135-145); Total Protein 6.4 g/dL (6.5-8.0)
[2024-01-12 18:07] LABS: Prothrombin Time 12.1 SEC (11.1-13.3)
[2024-01-12 18:10] LABS: Partial Thromboplastin Time 30.9 SEC (26.0-36.8)
[2024-01-12] MEDS: Morphine Sulfate 4 MG/ML CARTRIDGE IVPUSH (18:16)
[2024-01-12 20:04] VITALS: BP 158/87; PULSE 74; RESP 16; TEMP 37.1; O2SAT 93
--- NOTE | 2024-01-12 20:11 | PC.NURSE ---
Pt has 20g Iv in RAC for access, currently resting on recliner in [facility] 5, left knee with significant bruising and swelling. pt reporting 8/10 pain
[2024-01-12] MEDS: Hum Prothrombin Cplx(PCC)4Fact 2,000 UNIT in Container,Empty 0 ML 480 UNIT IV (20:42)
== END 2024-01-12 21:04 | disposition short-term general hospital (02) ==
PROVIDERS: Physician Assistant Medical; Emergency Provider Emergency Medicine; PCP Internal Medicine
DX: S80.12XA Contusion of left lower leg, initial encounter (principal); S70.12XA Contusion of left thigh, initial encounter; W19.XXXA Unspecified fall, initial encounter; R58 Hemorrhage, not elsewhere classified; R60.0 Localized edema; M25.462 Effusion, left knee; M79.605 Pain in left leg; Y93.9 Activity, unspecified; Y92.9 Unspecified place or not applicable; Y99.9 Unspecified external cause status; I87.2 Venous insufficiency (chronic) (peripheral); I48.0 Paroxysmal atrial fibrillation; J44.9 Chronic obstructive pulmonary disease, unspecified; E66.9 Obesity, unspecified; Z68.42 Body mass index [BMI] 45.0-49.9, adult; Z86.711 Personal history of pulmonary embolism; Z99.81 Dependence on supplemental oxygen; Z79.01 Long term (current) use of anticoagulants
CPT/HCPCS: 36415; 70450; 72125; 73701; 80053; 81001; 85025; 85610; 85730; 96374; 96375; 99285; J2270; J7168; Q9967

== ENCOUNTER 2024-02-13 09:59 | Outpatient (AMB) | payer BC, SELFPAY ==
[2024-02-13 10:04] VITALS: BP 108/66; PULSE 66; O2SAT 94; BMI 44.0
--- NOTE | 2024-02-13 10:04 | MHC.PC.OV ---
Vital Signs 02/13/24 10:04 Height 5 ft 10 in Weight 307 lb BMI 44.0 BP 108/66 Blood Pressure Location Rt brachial Position Sitting Pulse 66 Pulse Source Pulse Oximeter Pulse Oximetry (%) 94 Oxygen Delivery Method Nasal Cannula Intake Visit Reasons: Hospital follow up Intake Note: Pt is here today for a Hospital follow up visit. Allergies No Known Allergies Allergy (Verified 02/13/24 10:09) Medication List - Last Reconciled 02/13/24 by Alea Hull MD acetaminophen 1,000 mg PO Q6H PRN albuterol sulfate 90 mcg/actuation 2 puffs inhalation QID PRN albuterol sulfate 2.5 mg (3 mL) inhalation BID 90 days apixaban (Eliquis) 5 mg PO BID azelastine 2 sprays intranasal DAILY PRN budesonide-formoterol 160-4.5 mcg/actuation (Symbicort) 2 puffs inhalation BID cholecalciferol (vitamin D3) 25 mcg PO BEDTIME compr.stocking,knee,long,large As directed CPAP (CPAP Machine/Device) As directed diltiazem HCl ER 240 mg PO BEDTIME dronedarone (Multaq) 400 mg PO BID 90 days furosemide 40 mg PO BID methimazole 2.5 mg PO BEDTIME metoprolol succinate ER 100 mg PO BEDTIME multivitamin 1 tab PO BEDTIME nebulizers As directed omeprazole magnesium 20 mg PO DAILY@0630 Oxygen Home Use As directed roflumilast 500 mcg PO BEDTIME thiamine HCl (vitamin B1) 500 mg PO BEDTIME tiotropium bromide 2.5 mcg/actuation (Spiriva Respimat) 1 puff inhalation BID vitamin E 268 mg PO BEDTIME Tobacco use date assessed: 02/13/24 Dental Screening Dental Screen Date: 02/13/24 Did you have a dental visit in the last 12 months?: Yes Did you have a dental problem in the last 6 months where you did not have access to dental care?: No Was dental information given to patient?: Patient has dentist HPI Hospital follow up HPI Details Patient presents for the follow-up of hospitalization for traumatic left lower extremity hematoma after a fall on 01/12/2024. Patient underwent hematoma evacuation and fasciotomies on the anterior compartment at [facility]. Patient stayed 2 weeks in rehab and was discharged home last week. He is ambulating with a walker but is starting home physical therapy. Patient follows up with trauma surgeon and left lower extremity healed well. Patient still has some residual swelling and tenderness on the left calf. COPD paroxysmal AFib and hypertension are stable on current medications. [facility] Medical History (Updated 02/13/24 @ 11:13 by Alea Hull MD) Hypoventilation associated with obesity syndrome COPD exacerbation Hx of atrial flutter Obesity DEVIN (obstructive sleep apnea) COPD (chronic obstructive pulmonary disease) Chronic diastolic heart failure Acute on chronic diastolic (congestive) heart failure Acute exacerbation of chronic obstructive airways disease Hyperthyroidism Venous insufficiency of both lower extremities Chronic respiratory failure Hx pulmonary embolism Paroxysmal atrial flutter PAF (paroxysmal atrial fibrillation) Lung mass Surgical History H/O cardiac radiofrequency ablation Family History Father Bone cancer Mother COPD (chronic obstructive pulmonary disease) Social History Household Members: Spouse Household Members Other:: Housing: House Do you presently have visiting nurse or other home services: No Unable to assess alcohol history related to: Unknown Alcohol intake: current Alcohol intake frequency: holidays/special occasions only Patient Tobacco Use Status: Former Tobacco user Years Smoked: 30 years e-Cigarette/Vaping Use: Never Used Second Hand Smoke Exposure: No Advance Directives Date on File: 07/14/23 service: No Current occupational status: employed Cognitive needs: No Hearing needs: No Vision needs: Yes Questionnaire Thrive Questionnaire Date Thrive assessed: 10/07/23 I am a: Patient What is your living situation today?: I have a steady place to live Within the past 12 months, did the food you bought not last and you didn't have the money to get more?: Never true Within the past 12 months, did you worry whether your food would run out before you got money to buy more?: Never true Please select the resources that you would like help with: None THRIVE Score: 0 AUDIT C Alcohol Use Questionnaire (AUDIT-C) 1. How often do you have a drink containing alcohol?: Monthly or less 2. How many drinks containing alcohol do you have on a typical day when you are drinking?: 1 or 2 3. How often do you have six or more drinks on one occasion?: Never Total Score: 1 WILEY-7 AMB Questionnaire WILEY-7 Date WILEY - 7 assessed: 04/24/23 Feeling nervous, anxious, or on edge: 0 = Not at all Not being able to stop or control worryin = Not at all Worrying too much about different things: 0 = Not at all Trouble relaxin = Not at all Being so restless that it is hard to sit still: 0 = Not at all Becoming easily annoyed or irritable: 0 = Not at all Feeling afraid as if something awful might happen: 0 = Not at all Total WILEY-7 score (0-4 normal; 5-9 mild; 10-14 moderate; 15-21 severe): 0 Source: Developed by Drs. Tre Maya, Kay Win, Hoang Bethea and colleagues, with an educational padmaja from [employer]. Review of Systems Const All systems reviewed & are unremarkable except as noted in HPI and below Reports no additional complaints Eyes Reports no additional complaints ENT Reports no additional complaints Card Reports no additional complaints Resp Reports no additional complaints GI Reports no additional complaints Physical exam (Primary Care) Vital Signs: Last Vital Signs Pulse 66 02/13/24 10:04 BP 108/66 02/13/24 10:04 Pulse Ox 94 02/13/24 10:04 Oxygen Delivery Method Nasal Cannula 02/13/24 10:04 BMI result Body Mass Index 44.0 Tobacco/Smoking Status: Tobacco use Status Tobacco use date assessed 02/13/24 02/13/24 10:14 Patient Tobacco Use Status Former Tobacco user 02/13/24 10:14 e-Cigarette/Vaping Use Never Used 02/13/24 10:07 Thrive Assessment: Date of Thrive Assessment Date Thrive assessed 10/07/23 02/13/24 10:07 Const General: no acute distress HENMT Head: Yes normal to inspection Neck Neck: Yes supple Resp Effort & Inspection: normal respiratory effort Auscultation: diminished lung sounds Cardio Rhythm: regular rhythm Heart sounds: S1 normal heart sound present and S2 normal heart sound present Extrem Other: LEFT LOWER EXTREMITY 1+ PITTING EDEMA HEALED INCISIONS, Slight erythema but no warmth Assessment and Plan Assessment & Plan (1) PAF (paroxysmal atrial fibrillation): Comment: ON DILTIAZEM AND MULTAQ, anticoagulated on Eliquis Code(s): I48.0 - Paroxysmal atrial fibrillation Plan: Follow-up with cardiology (2) COPD (chronic obstructive pulmonary disease): Comment: ex TOBACCO 2007 Code(s): J44.9 - Chronic obstructive pulmonary disease, unspecified Qualifiers: COPD type: COPD with acute exacerbation Qualified Code(s): J44.1 - Chronic obstructive pulmonary disease with (acute) exacerbation Plan: Continue Symbicort Spiriva, CPAP and supplemental nocturnal O2, follow-up with pulmonology (3) Hematoma of left lower extremity: Comment: s/p hematoma evacuation and fasciotomies of anterior compartment 01/12/24 [facility] Code(s): S80.12XA - Contusion of left lower leg, initial encounter Plan: Healing well, patient was advised to elevate lower extremities. (4) Hypoventilation associated with obesity syndrome: Comment: On CPAP Code(s): E66.2 - Morbid (severe) obesity with alveolar hypoventilation Plan: Continue CPAP and supplemental O2 at night (5) Chronic diastolic heart failure: Comment: Echo 07/23 nl EF, F/U [facility] Code(s): I50.32 - Chronic diastolic (congestive) heart failure Plan: Continue current medications including metoprolol Orders: Orders Complete Blood Count Auto Diff 6 Weeks I48.0 - Paroxysmal atrial fibrillation, I48.91 - Unspecified atrial fibrillation, J44.9 - Chronic obstructive pulmonary disease, unspecified Lipid Panel 6 Weeks I48.0 - Paroxysmal atrial fibrillation, I48.91 - Unspecified atrial fibrillation, J44.9 - Chronic obstructive pulmonary disease, unspecified TSH reflex Free T4 6 Weeks I48.0 - Paroxysmal atrial fibrillation, I48.91 - Unspecified atrial fibrillation, J44.9 - Chronic obstructive pulmonary disease, unspecified Comprehensive [place]. Panel Fast 6 Weeks I48.0 - Paroxysmal atrial fibrillation, I48.91 - Unspecified atrial fibrillation, J44.9 - Chronic obstructive pulmonary disease, unspecified UA w Microscopic 6 Weeks I48.0 - Paroxysmal atrial fibrillation, I48.91 - Unspecified atrial fibrillation, J44.9 - Chronic obstructive pulmonary disease, unspecified Medications: Discontinued mometasone-formoterol 200-5 mcg/actuation (Dulera) Discontinued Reason: Doctor's Order 2 puffs inhalation Q12H 90 days 13 grams 3RF Coding Level of Care Code Est Pt Level 4 (38036) Diagnoses PAF (paroxysmal atrial fibrillation) I48.0 Chronic obstructive pulmonary disease with acute exacerbation J44.1 COPD type: COPD with acute exacerbation Hematoma of left lower extremity S80.12XA Hypoventilation associated with obesity syndrome E66.2 Chronic diastolic heart failure I50.32
== END 2024-02-13 10:46 | disposition home or self-care (01) ==
PROVIDERS: PCP Internal Medicine; Visit Provider Internal Medicine
DX: I48.0 Paroxysmal atrial fibrillation (principal); J44.1 Chronic obstructive pulmonary disease with (acute) exacerbation; Z68.41 Body mass index [BMI] 40.0-44.9, adult; E66.2 Morbid (severe) obesity with alveolar hypoventilation; I50.32 Chronic diastolic (congestive) heart failure; S80.12XA Contusion of left lower leg, initial encounter
CPT/HCPCS: 99214

== ENCOUNTER 2024-04-06 07:41 | Outpatient (REF) | payer BC, SELFPAY ==
[2024-04-06 10:16] LABS: MANUAL DIFF FLAG NO
[2024-04-06 10:44] LABS: Appearance Urine Clear; Color Urine Yellow; Glucose Urine UA Negative (Negative); Leukocyte Esterase Urine Negative (Negative); Nitrite Urine Negative (Negative); Specific Gravity - Urine 1.025 (1.005-1.025); UMIC TRIGGER UA YES; Urine Blood Negative (Negative); Urine Ketones Negative (Negative); Urine Protein 100 (2+) mg/dL (Neg-Trace)
[2024-04-06 10:48] LABS: Bacteria Urine None Seen (None Seen); Hyaline Casts Urine 0-2 /LPF (0-2); RBC Urine 0-2 /HPF (0-2); Squamous Epithelial Cell Urine 0-2 /HPF (0-2); WBC Urine 0-5 /HPF (0-5)
[2024-04-06 10:53] LABS: Alanine Aminotransferase 14 U/L (0-40); Albumin Level 4.1 g/dL (3.5-5.0); Alkaline Phosphatase 61 U/L (39-117); Anion Gap 15 (12-20); Aspartate Amino Transferase 17 U/L (5-37); Bilirubin Total 0.4 mg/dL (0.0-1.0); Blood Urea Nitrogen 20 mg/dL (9-16); Calcium 9.6 mg/dL (8.4-10.2); Carbon Dioxide 34 mmol/L (22-29); Chloride 100 mmol/L (96-108); Cholesterol 164 mg/dL (<200); Estimated Glomerular Filt Rate > 60; Glucose Fasting 88 mg/dL (60-99); HDL Cholesterol 61 mg/dL (>40); LDL Cholesterol Calculated 88 mg/dL (<100); Sodium 144 mmol/L (135-145); Triglycerides 77 mg/dL (<150)
[2024-04-06 10:54] LABS: Basophils Absolute Auto 0.1 X10*3/uL (0.0-0.2); Eosinophils Absolute Auto 0.3 X10*3/uL (0.0-0.4); Hematocrit 36.7 % (42.0-52.0); Imm Gran Abs Auto 0.05 X10*3/uL (0.00-0.03); Imm Gran Pct Auto 0.5 % (0.0-0.4); Lymphocytes Absolute Auto 2.3 X10*3/uL (1.2-4.9); Lymphocytes Percent Auto 22.5 % (20-40); Mean Corpuscular HGB Conc 28.6 g/dl (31.0-36.0); Mean Corpuscular Hemoglobin 22.7 pg (27.0-33.0); Mean Corpuscular Volume 79.3 fL (80.0-98.0); Mean Platelet Volume 10.8 fL (9.4-12.4); Monocytes Absolute Auto 0.8 X10*3/uL (0.1-1.2); Monocytes Percent Auto 7.8 % (2-11); Neutrophils Absolute Auto 6.8 x10*3/uL (2.0-8.3); Neutrophils Percent Auto 65.2 % (45-73); Platelet Count 248 X10*3/uL (160-400); Red Blood Count 4.63 X10*6/uL (4.60-5.80); Red Cell Distribution Width 18.1 % (11.0-16.0); White Blood Count 10.4 X10*3/uL (4.8-10.8)
[2024-04-06 10:57] LABS: TSH reflex Free T4 0.64 uIU/mL (0.32-4.0)
[2024-04-06 11:00] LABS: Hemoglobin 10.5 g/dl (14.0-18.0)
== END 2024-04-06 07:42 | disposition home or self-care (01) ==
LOC: HO.HMGCLDS 07:41
PROVIDERS: PCP Internal Medicine; Referring Provider Hospitalist; Visit Provider Internal Medicine
DX: J44.9 Chronic obstructive pulmonary disease, unspecified (principal); E05.90 Thyrotoxicosis, unspecified without thyrotoxic crisis or storm; I48.91 Unspecified atrial fibrillation; I48.0 Paroxysmal atrial fibrillation
CPT/HCPCS: 36415; 80053; 80061; 81001; 84443; 85025

== ENCOUNTER 2024-04-08 07:29 | Outpatient (AMB) | payer BC, SELFPAY ==
[2024-04-08 07:39] VITALS: BP 108/64; PULSE 60; O2SAT 92; BMI 45.2
--- NOTE | 2024-04-08 07:39 | MHC.PC.OV ---
Vital Signs 04/08/24 07:39 Height 5 ft 10 in Weight 315 lb BMI 45.2 BP 108/64 Blood Pressure Location Rt brachial Position Sitting Pulse 60 Pulse Source Pulse Oximeter Pulse Oximetry (%) 92 Oxygen Delivery Method Nasal Cannula Intake Visit Reasons: 6 Month F/U Intake Note: Pt is here today for 6 months follow up visit. Allergies No Known Allergies Allergy (Verified 04/08/24 07:42) Medication List - Last Reconciled 04/08/24 by Alea Hull MD acetaminophen 1,000 mg PO Q6H PRN albuterol sulfate 90 mcg/actuation 2 puffs inhalation QID PRN albuterol sulfate 2.5 mg (3 mL) inhalation BID 90 days apixaban (Eliquis) 5 mg PO BID azelastine 2 sprays intranasal DAILY PRN cholecalciferol (vitamin D3) 25 mcg PO BEDTIME compr.stocking,knee,long,large As directed CPAP (CPAP Machine/Device) As directed diltiazem HCl ER 240 mg PO BEDTIME dronedarone (Multaq) 400 mg PO BID 90 days furosemide 40 mg PO BID methimazole 2.5 mg (1/2 x 5 mg) PO BEDTIME metoprolol succinate ER 100 mg PO BEDTIME mometasone-formoterol 200-5 mcg/actuation (Dulera) 2 puffs inhalation Q12H 30 days multivitamin 1 tab PO BEDTIME nebulizers As directed omeprazole magnesium 20 mg PO DAILY@0630 Oxygen Home Use As directed roflumilast 500 mcg PO BEDTIME thiamine HCl (vitamin B1) 500 mg PO BEDTIME tiotropium bromide 2.5 mcg/actuation (Spiriva Respimat) 1 puff inhalation BID vitamin E 268 mg PO BEDTIME Tobacco use date assessed: 02/13/24 Dental Screening Dental Screen Date: 02/13/24 HPI 6 Month F/U HPI Details Patient presents for the follow-up of advanced COPD heart failure with preserved ejection fraction hypertension paroxysmal AFib morbid obesity. [facility] Medical History (Updated 04/08/24 @ 16:11 by Alea Hull MD) Hypoventilation associated with obesity syndrome COPD exacerbation Hx of atrial flutter Obesity DEVIN (obstructive sleep apnea) COPD (chronic obstructive pulmonary disease) Chronic diastolic heart failure Acute on chronic diastolic (congestive) heart failure Acute exacerbation of chronic obstructive airways disease Hyperthyroidism Venous insufficiency of both lower extremities Chronic respiratory failure Hx pulmonary embolism PAF (paroxysmal atrial fibrillation) Lung mass Surgical History H/O cardiac radiofrequency ablation Family History Father Bone cancer Mother COPD (chronic obstructive pulmonary disease) Social History Household Members: Spouse Household Members Other:: Housing: House Do you presently have visiting nurse or other home services: No Unable to assess alcohol history related to: Unknown Alcohol intake: current Alcohol intake frequency: holidays/special occasions only Patient Tobacco Use Status: Former Tobacco user Years Smoked: 30 years e-Cigarette/Vaping Use: Never Used Second Hand Smoke Exposure: No Advance Directives Date on File: 07/14/23 service: No Current occupational status: employed Cognitive needs: No Hearing needs: No Vision needs: Yes Questionnaire Thrive Questionnaire Date Thrive assessed: 10/07/23 WILEY-7 AMB Questionnaire WILEY-7 Date WILEY - 7 assessed: 04/24/23 Source: Developed by Drs. Tre Maya, Kay Win, Hoang Bethea and colleagues, with an educational padmaja from [employer]. Review of Systems Const All systems reviewed & are unremarkable except as noted in HPI and below ENT Reports no additional complaints Card Reports no additional complaints Resp Reports no additional complaints GI Reports no additional complaints Reports no additional complaints Physical exam (Primary Care) Vital Signs: Last Vital Signs Pulse 60 04/08/24 07:39 BP 108/64 04/08/24 07:39 Pulse Ox 92 04/08/24 07:39 Oxygen Delivery Method Nasal Cannula 04/08/24 07:39 BMI result Body Mass Index 45.2 Tobacco/Smoking Status: Tobacco use Status Tobacco use date assessed 02/13/24 04/08/24 07:39 Patient Tobacco Use Status Former Tobacco user 04/08/24 07:39 e-Cigarette/Vaping Use Never Used 04/08/24 07:39 Thrive Assessment: Date of Thrive Assessment Date Thrive assessed 10/07/23 04/08/24 07:39 Const General: no acute distress HENMT Head: Yes normal to inspection Eyes General: appearance normal, both eyes and all related structures Resp Effort & Inspection: normal respiratory effort Auscultation: diminished lung sounds Cardio Rhythm: regular rhythm Heart sounds: S1 normal heart sound present and S2 normal heart sound present GI Inspection: Yes normal to inspection Palpation (GI): Soft to palpation Percussion: Yes normal to percussion Auscultation: normal bowel sounds Assessment and Plan Assessment & Plan (1) Nose polyp: Code(s): J33.9 - Nasal polyp, unspecified (2) Chronic diastolic heart failure: Comment: Echo 07/23 nl EF, F/U [facility], heart failure with preserved ejection fraction Code(s): I50.32 - Chronic diastolic (congestive) heart failure Plan: Continue current medications follow-up with the Cardiology (3) COPD (chronic obstructive pulmonary disease): Comment: Severe on supplemental O2 and BiPAP, follow-up with pulmonology Code(s): J44.9 - Chronic obstructive pulmonary disease, unspecified Qualifiers: COPD type: COPD with acute exacerbation Qualified Code(s): J44.1 - Chronic obstructive pulmonary disease with (acute) exacerbation Plan: Continue inhalers supplemental O2 and CPAP (4) PAF (paroxysmal atrial fibrillation): Comment: ON DILTIAZEM AND MULTAQ, anticoagulated on Eliquis Code(s): I48.0 - Paroxysmal atrial fibrillation Plan: Continue current medications follow-up with Cardiology (5) Morbid obesity: Code(s): E66.01 - Morbid (severe) obesity due to excess calories Plan: Weight loss discussed with the patient Orders: Referrals Ear/Nose/Throat Referral J33.9 - Nasal polyp, unspecified Coding Level of Care Code Est Pt Level 4 (94395) Diagnoses Nose polyp J33.9 Chronic diastolic heart failure I50.32 Chronic obstructive pulmonary disease with acute exacerbation J44.1 COPD type: COPD with acute exacerbation PAF (paroxysmal atrial fibrillation) I48.0 Morbid obesity E66.01
== END 2024-04-08 16:11 | disposition home or self-care (01) ==
PROVIDERS: PCP Internal Medicine; Visit Provider Internal Medicine
DX: J33.9 Nasal polyp, unspecified (principal); I50.32 Chronic diastolic (congestive) heart failure; J44.1 Chronic obstructive pulmonary disease with (acute) exacerbation; I48.0 Paroxysmal atrial fibrillation; E66.01 Morbid (severe) obesity due to excess calories
CPT/HCPCS: 99214

== ENCOUNTER 2024-04-13 13:48 | Outpatient (AMB) | payer BC, SELFPAY ==
[2024-04-13 13:49] VITALS: BP 116/64; PULSE 72; BMI 45.5
--- NOTE | 2024-04-13 13:49 | A.OFFVIS_ITS ---
Vital Signs 04/13/24 13:49 Height 5 ft 10 in Weight 317 lb 0.395 oz BMI 45.5 BP 116/64 Blood Pressure Location Lt brachial Position Sitting Pulse 72 Intake Visit Reasons: r/s 6 month follow up Vegetable Tier Required: No Accompanied by: Self / Same As Patient Allergies No Known Allergies Allergy (Verified 04/08/24 07:42) Medication List - Last Reconciled 04/13/24 by Josesito Thorne MD acetaminophen 1,000 mg PO Q6H PRN albuterol sulfate 90 mcg/actuation 2 puffs inhalation QID PRN albuterol sulfate 2.5 mg (3 mL) inhalation BID 90 days apixaban (Eliquis) 5 mg PO BID azelastine 2 sprays intranasal DAILY PRN cholecalciferol (vitamin D3) 25 mcg PO BEDTIME compr.stocking,knee,long,large As directed CPAP (CPAP Machine/Device) As directed diltiazem HCl ER 240 mg PO BEDTIME dronedarone (Multaq) 400 mg PO BID 90 days furosemide 40 mg PO BID methimazole 2.5 mg (1/2 x 5 mg) PO BEDTIME metoprolol succinate ER 100 mg PO BEDTIME mometasone-formoterol 200-5 mcg/actuation (Dulera) 2 puffs inhalation Q12H 30 days multivitamin 1 tab PO BEDTIME nebulizers As directed omeprazole magnesium 20 mg PO DAILY@0630 Oxygen Home Use As directed roflumilast 500 mcg PO BEDTIME thiamine HCl (vitamin B1) 500 mg PO BEDTIME tiotropium bromide 2.5 mcg/actuation (Spiriva Respimat) 1 puff inhalation BID vitamin E 268 mg PO BEDTIME HPI Comments Details: Mario returns for follow-up regarding atrial fibrillation/flutter. He states he has moved to this area and previously lived in [facility]. Apparently around 10 years ago he was playing golf at that time hurt his calf muscle. That led to DVT and in that setting also developed pulmonary embolism. Consequently, developed atrial flutter. Apparently underwent cardioversion couple of times last at least 8 years ago. Then according to him, he underwent 2 ablations but not clear if it is flutter ablation or pulmonary vein isolation for atrial fibrillation. Last time around [id number]. Then according to patient 1 further episode of atrial fibrillation in 2019 in the setting of pneumonia. Patient states he has been on amiodarone for many many years. Unclear reasoning considering his relatively young age. Patient states he otherwise feels okay. He has COPD as well as obstructive sleep apnea. No documented coronary disease per patient. No anginal-type symptoms. 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 Since last seen, we switched his amiodarone to Multaq. He has been doing well. No issues in that regard. No recurrent atrial fibrillation. He feels fine. [facility] Medical History (Updated 04/13/24 @ 14:15 by Josesito Thorne MD) Hypoventilation associated with obesity syndrome COPD exacerbation Hx of atrial flutter Obesity DEVIN (obstructive sleep apnea) COPD (chronic obstructive pulmonary disease) Chronic diastolic heart failure Acute on chronic diastolic (congestive) heart failure Acute exacerbation of chronic obstructive airways disease Hyperthyroidism Venous insufficiency of both lower extremities Chronic respiratory failure Hx pulmonary embolism PAF (paroxysmal atrial fibrillation) Lung mass Surgical History H/O cardiac radiofrequency ablation Family History Father Bone cancer Mother COPD (chronic obstructive pulmonary disease) Social History Household Members: Spouse Household Members Other:: Housing: House Do you presently have visiting nurse or other home services: No Unable to assess alcohol history related to: Unknown Alcohol intake: current Alcohol intake frequency: holidays/special occasions only Patient Tobacco Use Status: Former Tobacco user Years Smoked: 30 years e-Cigarette/Vaping Use: Never Used Second Hand Smoke Exposure: No Advance Directives Date on File: 07/14/23 service: No Current occupational status: employed Cognitive needs: No Hearing needs: No Vision needs: Yes Review of Systems Const Denies chills, Denies fatigue, Denies fever(s), Denies frequent falls, Denies w eakness, Denies weight gain and Denies weight loss ENT Denies dizziness Card Denies chest pain, Denies leg edema, Denies lightheadedness, Denies palpi tations, Denies dyspnea and Denies dyspnea on exertion Resp Denies cough, Denies dyspnea and Denies dyspnea on exertion GI Denies hematochezia Musc Denies abnormal gait, Denies muscle weakness, Denies numbness, Denies radiating pain into limb and Denies tingling Neuro Denies abnormal gait, Denies dizziness, Denies frequent falls, Denies numbness, Denies tingling and Denies weakness Endo Denies fatigue and Denies palpitations Physical Exam Vital Signs: Last Vital Signs Pulse 72 04/13/24 13:49 BP 116/64 04/13/24 13:49 BMI result Body Mass Index 45.5 Const General: comfortable and no acute distress Orientation/consciousness: patient oriented x3 HEENT Other: Unremarkable Head: Yes normal to inspection Neck Neck: Yes normal visual inspection Chest Chest palpation & inspection: normal inspection of the chest Resp Auscultation: clear to auscultation bilaterally Cardio Palpation: normal PMI Heart sounds: S1 normal heart sound present, S2 normal heart sound present, no gallops, no murmurs and no rubs GI Palpation (GI): Soft to palpation Back/Spine/Pelvis Other: unremarkable Skin General skin exam: no rashes or lesions noted Neuro General: patient oriented x3 Extrem General: Yes normal to inspection Psych Mental Status: mental status grossly normal Office Procedures EKG Details: EKG today somewhat difficult to say but suspect sinus rhythm with a [place]. [id number], Complete Assessment & Plan Assessment & Plan (1) PAF (paroxysmal atrial fibrillation): Code(s): I48.0 - Paroxysmal atrial fibrillation Category: Medical (2) Paroxysmal atrial flutter: Code(s): I48.92 - Unspecified atrial flutter Category: Medical (3) Obesity: Code(s): E66.9 - Obesity, unspecified Category: Medical Qualifiers: Body mass index: BMI 45.0-49.9 Obesity classification: adult class 3 (BMI >= 40) Obesity type: unspecified obesity type Serious obesity comorbidity presence: with serious comorbidity Qualified Code(s): E66.01 - Morbid (severe) obesity due to excess calories; Z68.42 - Body mass index [BMI] 45.0-49.9, adult Plan Old records reviewed. He has had about 3 cardioversions in 2013 and 2014. Atrial flutter ablation 2014 and 2015. Report of failed flecainide therapy. In the recent echocardiogram, LVEF 65-70%. Moderate left ventricular hypertrophy. Mild left atrial dilatation. In the Holter monitor, underlying rhythm is sinus with an average rate of 68/Min. Occasional ectopy but otherwise unremarkable. Overall, he seems to be stable on Multaq. That can be continued. He is also on diltiazem/metoprolol. We will check another Holter while on this medication. Continue anticoagulation without changes. Obesity will be a major risk factor for recurrent atrial arrhythmias and will need to be addressed. Consider bariatric evaluation and this was discussed in the past. EKG in 3 months. Follow-up in 6 months. Orders: Orders ECG 3 day holter monitor Today I48.0 - Paroxysmal atrial fibrillation Coding Level of Care Code Est Pt Level 4 (42328) Diagnoses PAF (paroxysmal atrial fibrillation) I48.0 Paroxysmal atrial flutter I48.92 Class 3 severe obesity with serious comorbidity and body mass index (BMI) of 45.0 to 49.9 in adult, unspecified obesity type E66.01; Z68.42 Body mass index: BMI 45.0-49.9 Obesity classification: adult class 3 (BMI >= 40) Obesity type: unspecified obesity type Serious obesity comorbidity presence: with serious comorbidity CPT Codes EKG - CPT: 57005-[id number], Complete ([id number])
== END 2024-04-13 14:17 | disposition home or self-care (01) ==
PROVIDERS: PCP Internal Medicine; Visit Provider Internal Medicine
DX: I48.0 Paroxysmal atrial fibrillation (principal); I48.92 Unspecified atrial flutter; E66.01 Morbid (severe) obesity due to excess calories; Z68.42 Body mass index [BMI] 45.0-49.9, adult
CPT/HCPCS: 93010; 99214

== ENCOUNTER → 2024-04-13 13:48 | Outpatient (BNVA) | payer BC, SELFPAY | PROVIDERS: PCP Internal Medicine; Visit Provider Internal Medicine | DX: I48.0 Paroxysmal atrial fibrillation (principal); I48.92 Unspecified atrial flutter; E66.01 Morbid (severe) obesity due to excess calories; Z68.42 Body mass index [BMI] 45.0-49.9, adult; Z79.01 Long term (current) use of anticoagulants; Z79.899 Other long term (current) drug therapy | CPT/HCPCS: 93005 ==

== ENCOUNTER → 2024-04-23 08:39 | Outpatient (REF) | payer BC, SELFPAY ==
--- NOTE | 2024-04-23 08:42 | HM_ITS ---
* Total monitoring time 3 days. * Underlying rhythm is sinus with an average rate of 67/Min. * Rare supraventricular ectopy. * Rare ventricular ectopy. * No significant pauses or AV blocks. * Patient marker used once in association with sinus rhythm. * No events in diary. MTDD
== END ==
LOC: HO.CARD 08:39
PROVIDERS: PCP Internal Medicine; Visit Provider Internal Medicine
DX: I48.0 Paroxysmal atrial fibrillation (principal)
CPT/HCPCS: 93242

== ENCOUNTER → 2024-04-23 08:42 | Outpatient (BNV) | payer BC, SELFPAY | PROVIDERS: PCP Internal Medicine; Visit Provider Internal Medicine | DX: I49.3 Ventricular premature depolarization (principal) | CPT/HCPCS: 93244 ==

== ENCOUNTER 2024-05-31 14:24 | Outpatient (REF) | payer BC, SELFPAY ==
[2024-05-31 14:49] LABS: MANUAL DIFF FLAG NO
[2024-05-31 15:14] LABS: VBG pH 7.43 (7.32-7.43)
[2024-05-31 15:15] LABS: VBG pCO2 57 mmHg
[2024-05-31 15:17] LABS: VBG Base Excess 11.8 mmol/L; VBG HCO3 38 mmol/L (22-26); VBG pO2 44 mmHg; Venous Blood Gas Refer to POC result
[2024-05-31 15:41] LABS: Basophils Absolute Auto 0.1 X10*3/uL (0.0-0.2); Basophils Percent Auto 0.6 % (0-2); Eosinophils Absolute Auto 0.4 X10*3/uL (0.0-0.4); Eosinophils Percent Auto 3.2 % (0-4); Hematocrit 38.5 % (42.0-52.0); Hemoglobin 10.9 g/dl (14.0-18.0); Imm Gran Abs Auto 0.04 X10*3/uL (0.00-0.03); Imm Gran Pct Auto 0.4 % (0.0-0.4); Lymphocytes Absolute Auto 2.2 X10*3/uL (1.2-4.9); Lymphocytes Percent Auto 19.8 % (20-40); Mean Corpuscular HGB Conc 28.3 g/dl (31.0-36.0); Mean Corpuscular Hemoglobin 21.7 pg (27.0-33.0); Mean Corpuscular Volume 76.5 fL (80.0-98.0); Mean Platelet Volume 10.1 fL (9.4-12.4); Monocytes Absolute Auto 0.8 X10*3/uL (0.1-1.2); Monocytes Percent Auto 7.2 % (2-11); Neutrophils Absolute Auto 7.6 x10*3/uL (2.0-8.3); Neutrophils Percent Auto 68.8 % (45-73); Platelet Count 279 X10*3/uL (160-400); Red Blood Count 5.03 X10*6/uL (4.60-5.80); Red Cell Distribution Width 21.5 % (11.0-16.0); White Blood Count 11.1 X10*3/uL (4.8-10.8)
[2024-05-31 16:13] LABS: Alanine Aminotransferase 16 U/L (0-40); Albumin Level 4.2 g/dL (3.5-5.0); Alkaline Phosphatase 61 U/L (39-117); Anion Gap 13 (12-20); Aspartate Amino Transferase 20 U/L (5-37); Bilirubin Total 0.3 mg/dL (0.0-1.0); Blood Urea Nitrogen 18 mg/dL (9-16); Carbon Dioxide 35 mmol/L (22-29); Chloride 98 mmol/L (96-108); Estimated Glomerular Filt Rate > 60; Glucose Fasting 91 mg/dL (60-99); Glucose Random 90 mg/dL (60-115); Potassium 4.6 mmol/L (3.3-5.1); Sodium 141 mmol/L (135-145); Total Protein 7.1 g/dL (6.5-8.0)
== END 2024-05-31 14:25 | disposition home or self-care (01) ==
LOC: HO.LAB 14:24
PROVIDERS: PCP Internal Medicine; Visit Provider Hospitalist
DX: E05.90 Thyrotoxicosis, unspecified without thyrotoxic crisis or storm (principal); I48.0 Paroxysmal atrial fibrillation; J44.1 Chronic obstructive pulmonary disease with (acute) exacerbation; J96.11 Chronic respiratory failure with hypoxia; J96.12 Chronic respiratory failure with hypercapnia; Z86.711 Personal history of pulmonary embolism; R91.8 Other nonspecific abnormal finding of lung field
CPT/HCPCS: 36415; 80048; 80053; 82803; 84443; 85025

== ENCOUNTER 2024-05-31 14:24 | Outpatient (AMB) | payer BC, SELFPAY ==
[2024-05-31 14:56] VITALS: PULSE 82; O2SAT 91; BMI 44.8
--- NOTE | 2024-05-31 14:56 | A.OFFVIS_ITS ---
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 The patient states his sob has been getting progressively worse over last 2 months. initially on exertion, now at rest. has been needing to increase his home o2 supplement. recent PFTs may 2023 showed severe obstruction with FEV1 - 21%. The patient typically responds well to prednisone. He started feeling better. During the hospitalization he did have an ABG demonstrating a chronic hypercarbic respiratory failure secondary to likely has advanced COPD. He does use a BiPAP or a noninvasive ventilator at home. Will try to get a download from his [employer] company, [email or web address]. In the meantime he is completing the prednisone taper. Will go ahead and optimize his respiratory therapy by switching over to Trelegy. She continues use the oxygen with good effect. He was participating in pulmonary rehabilitation when he was sent to the ER. He is going to try to get back to pulmonary rehabilitation at this time. If the patient is not better once he completes the prednisone and would like to restart his lower dose he will call for additional prednisone. 10/15/2023 the patient is here for hospital follow-up visit. Apparently he ended up developing an upper respiratory illness and subsequently worsening worsening respiratory symptoms. He was admitted to the [facility]. Viral swab positive for enterovirus. The patient also was noted to have a chest x-ray perihilar congestion consistent with mild heart failure. He was placed on diuretics. The patient was placed on prednisone. He continue using his BiPAP. He did have a blood gas in the hospital demonstrating chronic hypercarbic respiratory failure. He has been using his AVAP. DME is [email or web address]. Will request a download at this time and further adjust the AVAP accordingly. We did review his imaging studies demonstrating the mild heart failure. The patient understands that he will continue with a low-sodium diet. New continue with current respiratory therapy. 01/02/2024 the patient has a telehealth visit today. Recently he developed COVID-19. The patient does take Eliquis and also he is on antiarrhythmic agents. Therefore we placed him on Mulnopinivir. the patient completed a 5 day course any responded very well to it. His chest congestion is improved his breathing is also improved. Overall he is in recovery. He continues use the noninvasive ventilator at nighttime. He has been affecting beneficial. He does use it for more than 4 hours a night. Will plan to repeat his venous blood gas to assess his CO2 and make sure that is responding well to the noninvasive ventilator. In addition to that he continues use the oxygen. He did use the oxygen more often when was sick with COVID-19. Right now is closer to his baseline. The patient does have increased chest congestion so therefore will go ahead and start him on doxycycline case symptoms worsen. The patient should also have some prednisone available in case develops reactive airway disease a fter having COVID. At this point he can hold off unless his symptoms worsen as well. Will follow-up in 3-4 months and at that point will review his blood work. 05/31/2024 the patient is here for a pulmonary follow-up visit. Overall the patient has been doing well. He continues uses respiratory therapy with good effect. He has been working on weight loss. He is looking into also participating in the weight loss program. He did take down some information. The meantime he continues using noninvasive ventilator at nighttime. The astral has been affecting beneficial. He did have a repeat blood gas demonstrating his PaCO2 has gone down from 80 mmHg to now 57 mmHg which is excellent. He has been getting supplies readily from the [employer]. He had a last CT scan back in the winter of 2023 still demonstrating the masslike density consistent with developed the atelectasis. Has not changed so is likely to be a benign process. Will discuss further imaging study during the next visit. He continues on the anticoagulation with good effect. Otherwise patient is without any other concerns. [facility] Medical History (Updated 04/13/24 @ 14:15 by Josesito Thorne MD) Hypoventilation associated with obesity syndrome COPD exacerbation Hx of atrial flutter Obesity DEVIN (obstructive sleep apnea) COPD (chronic obstructive pulmonary disease) Chronic diastolic heart failure Acute on chronic diastolic (congestive) heart failure Acute exacerbation of chronic obstructive airways disease Hyperthyroidism Venous insufficiency of both lower extremities Chronic respiratory failure Hx pulmonary embolism PAF (paroxysmal atrial fibrillation) Lung mass Surgical History H/O cardiac radiofrequency ablation Family History Father Bone cancer Mother COPD (chronic obstructive pulmonary disease) Social History Household Members: Spouse Household Members Other:: Housing: House Do you presently have visiting nurse or other home services: No Unable to assess alcohol history related to: Unknown Alcohol intake: current Alcohol intake frequency: holidays/special occasions only Patient Tobacco Use Status: Former Tobacco user Years Smoked: 30 years e-Cigarette/Vaping Use: Never Used Second Hand Smoke Exposure: No Advance Directives Date on File: 07/14/23 service: No Current occupational status: employed Cognitive needs: No Hearing needs: No Vision needs: Yes Review of Systems Const Denies fever(s) and Reports weight loss Eyes Denies exophthalmos Card Denies chest pain and Reports dyspnea on exertion Resp Reports chest congestion, Reports cough, Reports dyspnea on exertion and Denies wheezing GI Reports no additional complaints Musc Reports no additional complaints Skin/Breast Denies rash Neuro Reports no additional complaints Venu/Lymph Denies lymphadenopathy Aller/Immun Denies wheezing Physical Exam Vital Signs: Last Vital Signs Pulse 82 05/31/24 14:56 Pulse Ox 91 L 05/31/24 14:56 Oxygen Delivery Method Room Air 05/31/24 14:56 BMI result Body Mass Index 44.8 Const General: comfortable HEENT Head: Yes atraumatic Neck Neck: Yes supple Chest Chest palpation & inspection: normal inspection of the chest Resp Effort & Inspection: normal respiratory effort Auscultation: diminished lung sounds Cardio Rate: regular rate Rhythm: regular rhythm Heart sounds: S1 normal heart sound present and S2 normal heart sound present GI Palpation (GI): Soft to palpation Skin General skin exam: no rashes or lesions noted Extrem General: Yes no clubbing, cyanosis or edema Assessment & Plan Assessment & Plan (1) COPD (chronic obstructive pulmonary disease): Comment: Severe on supplemental O2 and BiPAP, follow-up with pulmonology Code(s): J44.9 - Chronic obstructive pulmonary disease, unspecified Category: Medical Qualifiers: COPD type: COPD with acute exacerbation Qualified Code(s): J44.1 - Chronic obstructive pulmonary disease with (acute) exacerbation (2) Chronic respiratory failure: Comment: on supplemental O2 PRN Code(s): J96.10 - Chronic respiratory failure, unspecified whether with hypoxia or hypercapnia Category: Medical Qualifiers: Respiratory failure complication: hypoxia and hypercapnia Qualified Code(s): J96.11 - Chronic respiratory failure with hypoxia; J96.12 - Chronic respiratory failure with hypercapnia (3) Hx pulmonary embolism: Comment: 2013, on lifetime anticoagulation Code(s): Z86.711 - Personal history of pulmonary embolism Category: Medical (4) Sleep apnea: Code(s): G47.30 - Sleep apnea, unspecified Category: Medical Qualifiers: Sleep apnea type: obstructive Qualified Code(s): G47.33 - Obstructive sleep apnea (adult) (pediatric) (5) Lung mass: Code(s): R91.8 - Other nonspecific abnormal finding of lung field Category: Medical Plan continue Dulera Continue Daliresp REY as needed continue oxygen supplementation Astral AVAPS at night, will request a download from his [employer] ([email or web address]) restart rehab when better continue Eliquis diureses as tolerated lung mass likely rounded atelectasis associated with a calcified pleural plaque F/U 6 months Medications: Refilled mometasone-formoterol 200-5 mcg/actuation (Dulera) 2 puffs inhalation Q12H 30 days 13 grams 11RF Coding Level of Care Code Est Pt Level 4 (72043) Diagnoses Chronic obstructive pulmonary disease with acute exacerbation J44.1 COPD type: COPD with acute exacerbation Chronic respiratory failure with hypoxia and hypercapnia J96.11; J96.12 Respiratory failure complication: hypoxia and hypercapnia Hx pulmonary embolism Z86.711 Obstructive sleep apnea syndrome G47.33 Sleep apnea type: obstructive Lung mass R91.8 Time Spent (min) 17
== END 2024-05-31 15:16 | disposition home or self-care (01) ==
PROVIDERS: PCP Internal Medicine; Visit Provider Hospitalist
DX: J44.1 Chronic obstructive pulmonary disease with (acute) exacerbation (principal); J96.11 Chronic respiratory failure with hypoxia; J96.12 Chronic respiratory failure with hypercapnia; Z86.711 Personal history of pulmonary embolism; G47.33 Obstructive sleep apnea (adult) (pediatric); R91.8 Other nonspecific abnormal finding of lung field
CPT/HCPCS: 99214

== ENCOUNTER 2024-06-09 10:13 | Outpatient (REF) | payer BC, SELFPAY ==
[2024-06-09 13:36] LABS: Iron 34 mcg/dL (45-160); Percent Iron Saturation 11 % (15-50); Total Iron Binding Capacity 296 mcg/dL (228-428); Unsaturated Iron Binding 262 ug/dL
[2024-06-09 14:24] LABS: Folate 11.7 ng/mL (> or = 4.0); Vitamin B12 902 pg/mL (200-900)
== END 2024-06-09 10:14 | disposition home or self-care (01) ==
LOC: HO.HMGCLDS 10:13
PROVIDERS: PCP Internal Medicine; Visit Provider Internal Medicine
DX: D64.9 Anemia, unspecified (principal)
CPT/HCPCS: 36415; 82607; 82746; 83540

== ENCOUNTER 2024-07-15 08:02 | Outpatient (REF) | payer BC, SELFPAY ==
[2024-07-15 10:00] LABS: MANUAL DIFF FLAG NO
[2024-07-15 10:14] LABS: Basophils Absolute Auto 0.1 X10*3/uL (0.0-0.2); Basophils Percent Auto 0.8 % (0-2); Eosinophils Absolute Auto 0.2 X10*3/uL (0.0-0.4); Eosinophils Percent Auto 2.3 % (0-4); Hematocrit 43.3 % (42.0-52.0); Hemoglobin 12.8 g/dl (14.0-18.0); Imm Gran Abs Auto 0.03 X10*3/uL (0.00-0.03); Imm Gran Pct Auto 0.3 % (0.0-0.4); Lymphocytes Absolute Auto 2.7 X10*3/uL (1.2-4.9); Lymphocytes Percent Auto 26.9 % (20-40); Mean Corpuscular HGB Conc 29.6 g/dl (31.0-36.0); Mean Corpuscular Hemoglobin 24.2 pg (27.0-33.0); Mean Corpuscular Volume 81.9 fL (80.0-98.0); Mean Platelet Volume 10.3 fL (9.4-12.4); Monocytes Absolute Auto 0.8 X10*3/uL (0.1-1.2); Monocytes Percent Auto 7.9 % (2-11); Neutrophils Absolute Auto 6.2 x10*3/uL (2.0-8.3); Neutrophils Percent Auto 61.8 % (45-73); Platelet Count 228 X10*3/uL (160-400); Red Blood Count 5.29 X10*6/uL (4.60-5.80); Red Cell Distribution Width 25.1 % (11.0-16.0)
[2024-07-15 10:24] LABS: Iron 265 mcg/dL (45-160); Percent Iron Saturation 79 % (15-50); Total Iron Binding Capacity 336 mcg/dL (228-428); Unsaturated Iron Binding 71 ug/dL
== END 2024-07-15 08:03 | disposition home or self-care (01) ==
LOC: HO.HMGCLDS 08:02
PROVIDERS: PCP Internal Medicine; Visit Provider Internal Medicine
DX: D64.9 Anemia, unspecified (principal)
CPT/HCPCS: 36415; 83540; 85025

== ENCOUNTER 2024-07-20 14:55 | Outpatient (AMB) | payer BC, SELFPAY ==
--- NOTE | 2024-07-20 15:08 | AM.OFFVISNUR ---
Intake Visit Reasons: EKG Allergies No Known Allergies Allergy (Verified 05/31/24 14:58) Nursing Note pt is here for nurse visit with ekg ekg reviewed by dr arreguin pt is on Multag 400mg BID Office Procedures EKG [id number], Complete
== END 2024-07-20 15:23 | disposition home or self-care (01) ==
PROVIDERS: PCP Internal Medicine; Visit Provider Internal Medicine
DX: I48.0 Paroxysmal atrial fibrillation (principal); Z79.899 Other long term (current) drug therapy
CPT/HCPCS: 93010

== ENCOUNTER → 2024-07-20 14:55 | Outpatient (BNVA) | payer BC, SELFPAY | PROVIDERS: PCP Internal Medicine; Visit Provider Internal Medicine | DX: Z79.899 Other long term (current) drug therapy (principal) | CPT/HCPCS: 93005 ==

== ENCOUNTER 2024-08-20 08:07 | Outpatient (REF) | payer BC, SELFPAY ==
[2024-08-20 10:05] LABS: MANUAL DIFF FLAG NO
[2024-08-20 10:10] LABS: Basophils Absolute Auto 0.1 X10*3/uL (0.0-0.2); Basophils Percent Auto 0.7 % (0-2); Eosinophils Absolute Auto 0.2 X10*3/uL (0.0-0.4); Eosinophils Percent Auto 1.9 % (0-4); Hematocrit 44.8 % (42.0-52.0); Hemoglobin 13.4 g/dl (14.0-18.0); Imm Gran Abs Auto 0.04 X10*3/uL (0.00-0.03); Imm Gran Pct Auto 0.4 % (0.0-0.4); Lymphocytes Absolute Auto 1.7 X10*3/uL (1.2-4.9); Lymphocytes Percent Auto 15.4 % (20-40); Mean Corpuscular HGB Conc 29.9 g/dl (31.0-36.0); Mean Corpuscular Hemoglobin 25.5 pg (27.0-33.0); Mean Corpuscular Volume 85.3 fL (80.0-98.0); Mean Platelet Volume 11.2 fL (9.4-12.4); Monocytes Percent Auto 8.9 % (2-11); Neutrophils Absolute Auto 8.2 x10*3/uL (2.0-8.3); Neutrophils Percent Auto 72.7 % (45-73); Platelet Count 244 X10*3/uL (160-400); Red Blood Count 5.25 X10*6/uL (4.60-5.80); Red Cell Distribution Width 21.2 % (11.0-16.0); White Blood Count 11.3 X10*3/uL (4.8-10.8)
[2024-08-20 10:43] LABS: Iron 47 mcg/dL (45-160); Percent Iron Saturation 15 % (15-50); Total Iron Binding Capacity 309 mcg/dL (228-428); Unsaturated Iron Binding 262 ug/dL
== END 2024-08-20 08:08 | disposition home or self-care (01) ==
LOC: HO.HMGCLDS 08:07
PROVIDERS: PCP Internal Medicine; Visit Provider Internal Medicine
DX: D64.9 Anemia, unspecified (principal)
CPT/HCPCS: 36415; 83540; 85025

== ENCOUNTER 2024-09-13 07:33 | Outpatient (AMB) | payer BC, SELFPAY ==
[2024-09-13 07:50] VITALS: BP 120/72; PULSE 65; O2SAT 94; BMI 48.1
--- NOTE | 2024-09-13 07:50 | A.OFFPC_ITS ---
Vital Signs 09/13/24 07:50 Height 5 ft 10 in Weight 335 lb BMI 48.1 BP 120/72 Blood Pressure Location Rt brachial Position Sitting Pulse 65 Pulse Source Pulse Oximeter Pulse Oximetry (%) 94 Oxygen Delivery Method Room Air Intake Visit Reasons: PE Intake Note: Pt is here today for his PE Allergies No Known Allergies Allergy (Verified 09/13/24 07:50) Medication List - Last Reconciled 09/13/24 by Alea Hull MD acetaminophen 1,000 mg PO Q6H PRN albuterol sulfate 90 mcg/actuation 2 puffs inhalation QID PRN albuterol sulfate 2.5 mg (3 mL) inhalation BID 90 days apixaban (Eliquis) 5 mg PO BID cholecalciferol (vitamin D3) 25 mcg PO BEDTIME compr.stocking,knee,long,large As directed CPAP (CPAP Machine/Device) As directed diltiazem HCl ER 240 mg PO BEDTIME dronedarone (Multaq) 400 mg PO BID 90 days ferrous sulfate 325 mg PO DAILY [id number]-gzdvqmxob-fuohsamg 200-62.5-25 mcg (Trelegy Ellipta) 1 inh inhalation DAILY 90 days furosemide 40 mg PO BID methimazole 2.5 mg (1/2 x 5 mg) PO BEDTIME metoprolol succinate ER 100 mg PO BEDTIME mometasone-formoterol 200-5 mcg/actuation (Dulera) 2 puffs inhalation Q12H 30 days multivitamin 1 tab PO BEDTIME nebulizers As directed omeprazole magnesium 20 mg PO DAILY@0630 Oxygen Home Use As directed roflumilast 500 mcg PO BEDTIME 90 days thiamine HCl (vitamin B1) 500 mg PO BEDTIME tiotropium bromide 2.5 mcg/actuation (Spiriva Respimat) 1 puff inhalation BID vitamin E 268 mg PO BEDTIME Tobacco use date assessed: 09/13/24 Dental Screening Dental Screen Date: 09/13/24 HPI PE HPI Details Patient presents for a physical. O2 dependent COPD/hypoventilation syndrome, hypertension, paroxysmal AFib past stable on current medications. Patient has been trying to lose weight for 6 months increasing physical activity and decreasing caloric intake unsuccessfully. COUNT INCLUDES THE [facility] Medical History Hypoventilation associated with obesity syndrome COPD exacerbation Hx of atrial flutter Obesity EDVIN (obstructive sleep apnea) COPD (chronic obstructive pulmonary disease) Chronic diastolic heart failure Acute on chronic diastolic (congestive) heart failure Acute exacerbation of chronic obstructive airways disease Hyperthyroidism Venous insufficiency of both lower extremities Chronic respiratory failure Hx pulmonary embolism PAF (paroxysmal atrial fibrillation) Lung mass Surgical History H/O cardiac radiofrequency ablation Family History Father Bone cancer Mother COPD (chronic obstructive pulmonary disease) Social History Household Members: Spouse Household Members Other:: Housing: House Do you presently have visiting nurse or other home services: No Unable to assess alcohol history related to: Unknown Alcohol intake: current Alcohol intake frequency: holidays/special occasions only Patient Tobacco Use Status: Former Tobacco user Years Smoked: 30 years e-Cigarette/Vaping Use: Never Used Second Hand Smoke Exposure: No Advance Directives Date on File: 07/14/23 service: No Current occupational status: employed Cognitive needs: No Hearing needs: No Vision needs: Yes Questionnaire PHQ-9 Over the last 2 weeks, how often have you been bothered by any of the following problems? 1. Little interest or pleasure in doing things: not at all 2. Feeling down, depressed, or hopeless: not at all 3. Trouble falling or staying asleep, or sleeping too much: not at all 4. Feeling tired or having little energy: not at all 5. Poor appetite or overeating: not at all 6. Feeling bad about yourself - or that you are a failure or have let yourself or your family down: not at all 7. Trouble concentrating on things, such as reading the newspaper or watching television: not at all 8. Moving or speaking so slowly that other people could have noticed. Or the opposite - being so fidgety or restless that you have been moving around a lot more than usual: not at all 9. Thoughts that you would be better off or of hurting yourself in some way: not at all Total score: 0 Depression Screening Interpretation: Negative Depression Screening Done: Yes 47553 - PHQ-9 Billing: Yes Source: Developed by Kay Nash.W. Quirino, Hoang Bethea and colleagues, with an educational padmaja from [employer]. Thrive Questionnaire Date Thrive assessed: 09/13/24 I am a: Patient What is your living situation today?: I have a steady place to live Within the past 12 months, did the food you bought not last and you didn't have the money to get more?: Never true Within the past 12 months, did you worry whether your food would run out before you got money to buy more?: Never true Do you have trouble paying for medicines?: No Do you have trouble getting transportation to medical appointments?: No Do you have trouble paying your heating and electricity bill?: No Do you have trouble taking care of your child, family member or friend?: No Do you have trouble with day-to-day activities such as bathing, preparing meals, shopping, managing finances, etc.?: No Are you interested in more education?: No Please select the resources that you would like help with: None Currently or been in a relationship where the following occur: No concerns reported THRIVE Score: 0 AUDIT C Alcohol Use Questionnaire (AUDIT-C) 2. How many drinks containing alcohol do you have on a typical day when you are drinking?: 1 or 2 Total Score: 0 WILEY-7 AMB Questionnaire WILEY-7 Date WILEY - 7 assessed: 09/13/24 Feeling nervous, anxious, or on edge: 0 = Not at all Not being able to stop or control worryin = Not at all Worrying too much about different things: 0 = Not at all Trouble relaxin = Not at all Being so restless that it is hard to sit still: 0 = Not at all Becoming easily annoyed or irritable: 0 = Not at all Feeling afraid as if something awful might happen: 0 = Not at all Total WILEY-7 score (0-4 normal; 5-9 mild; 10-14 moderate; 15-21 severe): 0 Source: Developed by Drs. Tre Maya, Kay Win, Hoang Bethea and colleagues, with an educational padmaja from [employer]. Review of Systems Const All systems reviewed & are unremarkable except as noted in HPI and below Eyes Reports no additional complaints ENT Reports no additional complaints Card Reports no additional complaints Resp Reports no additional complaints GI Reports no additional complaints Reports no additional complaints Physical exam (Primary Care) Vital Signs: Last Vital Signs Pulse 49 L 09/13/24 07:50 BP 156/72 H 09/13/24 07:50 Pulse Ox 94 09/13/24 07:50 Oxygen Delivery Method Room Air 09/13/24 07:50 BMI result Body Mass Index 48.1 Tobacco/Smoking Status: Tobacco use Status Tobacco use date assessed 09/13/24 09/13/24 07:56 Patient Tobacco Use Status Former Tobacco user 09/13/24 07:56 e-Cigarette/Vaping Use Never Used 09/13/24 07:56 PHQ-9: PHQ-9 Score PHQ-9: Total score 0 09/13/24 08:19 Depression Screening Interpretation: Negative Thrive Assessment: Date of Thrive Assessment Date Thrive assessed 09/13/24 09/13/24 07:56 Currently or been in a relationship where the following occur: No concerns reported Const General: no acute distress HENMT Head: Yes normal to inspection Eyes General: appearance normal, both eyes and all related structures Neck Neck: Yes no lymphadenopathy and Yes supple Resp Effort & Inspection: normal respiratory effort Auscultation: diminished lung sounds Cardio Rhythm: regular rhythm Heart sounds: S1 normal heart sound present and S2 normal heart sound present GI Inspection: Yes normal to inspection Palpation (GI): Soft to palpation Percussion: Yes normal to percussion Auscultation: normal bowel sounds Coding Level of Care Code Est Pt Prev Care 40-64y(16260) Diagnoses Anemia D64.9 Hyperthyroidism E05.90 PAF (paroxysmal atrial fibrillation) I48.0 Chronic diastolic heart failure I50.32 A-fib I48.91 Morbid obesity E66.01 Assessment & Plan Assessment & Plan (1) Anemia: Comment: iron deficiency, refer to GI 08/2024 Code(s): D64.9 - Anemia, unspecified Category: Medical Plan: For chronic iron deficiency anemia corrected with iron supplement patient will be referred to GI for colonoscopy and EGD (2) Hyperthyroidism: Code(s): E05.90 - Thyrotoxicosis, unspecified without thyrotoxic crisis or storm Category: Medical Plan: Controlled on methimazole (3) PAF (paroxysmal atrial fibrillation): Code(s): I48.0 - Paroxysmal atrial fibrillation Category: Medical Plan: Controlled on Multaq and anticoagulated on Eliquis (4) Chronic diastolic heart failure: Comment: Echo 07/23 nl EF, F/U [facility], heart failure with preserved ejection fraction Code(s): I50.32 - Chronic diastolic (congestive) heart failure Category: Medical Plan: Continue current medications, we will try Wegovy for weight loss (5) A-fib: Comment: Echo 07/2022 [facility] [place] EF, LVH, nl valves ,? pul HTN (on previous echo) Code(s): I48.91 - Unspecified atrial fibrillation Category: Medical Plan: Continue current medications (6) Morbid obesity: Code(s): E66.01 - Morbid (severe) obesity due to excess calories Category: Medical Plan: Continue decreased caloric intake, increased physical activity, Wegovy 0.25 mg for the 1st month then increase to 0.5 mg weekly will be started. patient will follow-up in 2 months Orders: Orders Complete Blood Count Auto Diff 2 Months E05.90 - Thyrotoxicosis, unspecified without thyrotoxic crisis or storm, I48.0 - Paroxysmal atrial fibrillation, I48.91 - Unspecified atrial fibrillation, I50.32 - Chronic diastolic (congestive) heart failure, J44.1 - Chronic obstructive pulmonary disease with (acute) exacerbation Comprehensive [place]. Panel Fast 2 Months E05.90 - Thyrotoxicosis, unspecified without thyrotoxic crisis or storm, I48.0 - Paroxysmal atrial fibrillation, I48.91 - Unspecified atrial fibrillation, I50.32 - Chronic diastolic (congestive) heart failure, J44.1 - Chronic obstructive pulmonary disease with (acute) exacerbation Complete Blood Count Auto Diff 1 Month E05.90 - Thyrotoxicosis, unspecified without thyrotoxic crisis or storm, I48.0 - Paroxysmal atrial fibrillation, I48.91 - Unspecified atrial fibrillation IRON PROFILE 1 Month D64.9 - Anemia, unspecified Lipid Panel 2 Months E05.90 - Thyrotoxicosis, unspecified without thyrotoxic crisis or storm, I48.0 - Paroxysmal atrial fibrillation, I48.91 - Unspecified atrial fibrillation TSH reflex Free T4 2 Months E05.90 - Thyrotoxicosis, unspecified without thyrotoxic crisis or storm, I48.0 - Paroxysmal atrial fibrillation, I48.91 - U nspecified atrial fibrillation Referrals Gastroenterology Referral D64.9 - Anemia, unspecified Medications: New Wegovy (semaglutide (weight loss)) administer weeks 1 through 4 of therapy 0.25 mg (0.5 mL) subcut QWEEK 2 mL 0RF NS
== END 2024-09-13 15:51 | disposition home or self-care (01) ==
PROVIDERS: PCP Internal Medicine; Visit Provider Internal Medicine
DX: Z00.00 Encounter for general adult medical examination without abnormal findings (principal); I48.0 Paroxysmal atrial fibrillation; I50.32 Chronic diastolic (congestive) heart failure; I48.91 Unspecified atrial fibrillation; Z68.42 Body mass index [BMI] 45.0-49.9, adult; E66.813 Obesity, class 3; D64.9 Anemia, unspecified; E05.90 Thyrotoxicosis, unspecified without thyrotoxic crisis or storm

== ENCOUNTER → 2024-09-13 07:33 | Outpatient (BNVA) | payer BC, SELFPAY | PROVIDERS: PCP Internal Medicine; Visit Provider Internal Medicine ==

== ENCOUNTER 2024-10-13 12:25 | Outpatient (REF) | payer BC, SELFPAY ==
[2024-10-13 16:24] LABS: MANUAL DIFF FLAG NO
[2024-10-13 16:36] LABS: Basophils Absolute Auto 0.1 X10*3/uL (0.0-0.2); Basophils Percent Auto 0.8 % (0-2); Eosinophils Absolute Auto 0.2 X10*3/uL (0.0-0.4); Hemoglobin 13.7 g/dl (14.0-18.0); Imm Gran Abs Auto 0.04 X10*3/uL (0.00-0.03); Imm Gran Pct Auto 0.3 % (0.0-0.4); Lymphocytes Percent Auto 17.1 % (20-40); Mean Corpuscular HGB Conc 29.8 g/dl (31.0-36.0); Mean Corpuscular Hemoglobin 26.7 pg (27.0-33.0); Mean Corpuscular Volume 89.5 fL (80.0-98.0); Mean Platelet Volume 11.1 fL (9.4-12.4); Monocytes Percent Auto 8.1 % (2-11); Neutrophils Absolute Auto 8.5 x10*3/uL (2.0-8.3); Neutrophils Percent Auto 71.7 % (45-73); Platelet Count 215 X10*3/uL (160-400); Red Blood Count 5.14 X10*6/uL (4.60-5.80); Red Cell Distribution Width 18.2 % (11.0-16.0); White Blood Count 11.9 X10*3/uL (4.8-10.8)
[2024-10-13 16:43] LABS: Iron 27 mcg/dL (45-160); Percent Iron Saturation 9 % (15-50); Total Iron Binding Capacity 295 mcg/dL (228-428); Unsaturated Iron Binding 268 ug/dL
== END 2024-10-13 12:26 | disposition home or self-care (01) ==
LOC: HO.HMGCLDS 12:25
PROVIDERS: PCP Internal Medicine; Visit Provider Internal Medicine
DX: E05.90 Thyrotoxicosis, unspecified without thyrotoxic crisis or storm (principal); D64.9 Anemia, unspecified; I48.0 Paroxysmal atrial fibrillation; I48.91 Unspecified atrial fibrillation
CPT/HCPCS: 36415; 83540; 85025

== ENCOUNTER 2024-10-14 14:34 | Outpatient (AMB) | payer BC, SELFPAY ==
[2024-10-14 14:42] VITALS: BP 140/68; PULSE 84; BMI 49.7
--- NOTE | 2024-10-14 14:42 | A.OFFVIS_ITS ---
Vital Signs 10/14/24 14:42 Height 5 ft 10 in Weight 346 lb 2.012 oz BMI 49.7 BP 140/68 H Blood Pressure Location Lt brachial Position Sitting Pulse 84 Pulse Source Monitor Intake Visit Reasons: 6m follow up Supervisor Cloth Winding Required: No Accompanied by: Self / Same As Patient Allergies No Known Allergies Allergy (Verified 09/13/24 07:50) Medication List - Last Reconciled 10/14/24 by Josesito Thorne MD acetaminophen 1,000 mg PO Q6H PRN albuterol sulfate 90 mcg/actuation 2 puffs inhalation QID PRN albuterol sulfate 2.5 mg (3 mL) inhalation BID 90 days apixaban (Eliquis) 5 mg PO BID cholecalciferol (vitamin D3) 25 mcg PO BEDTIME compr.stocking,knee,long,large As directed CPAP (CPAP Machine/Device) As directed diltiazem HCl ER 240 mg PO BEDTIME 90 days dronedarone (Multaq) 400 mg PO BID ferrous sulfate 325 mg PO DAILY [id number]-dvaiepixd-qkpyjfiv 200-62.5-25 mcg (Trelegy Ellipta) 1 inh inhalation DAILY 90 days furosemide 40 mg PO BID methimazole 2.5 mg (1/2 x 5 mg) PO BEDTIME metoprolol succinate ER 100 mg PO BEDTIME multivitamin 1 tab PO BEDTIME nebulizers As directed omeprazole magnesium 20 mg PO DAILY@0630 Oxygen Home Use As directed roflumilast 500 mcg PO BEDTIME 90 days thiamine HCl (vitamin B1) 500 mg PO BEDTIME vitamin E 268 mg PO BEDTIME Wegovy (semaglutide (weight loss)) 0.25 mg (0.5 mL) subcut QWEEK NS HPI Comments Details: Mario returns for follow-up regarding atrial fibrillation/flutter. Previously lived in [facility]. Apparently around 10+ years ago he was playing golf at that time hurt his calf muscle. That led to DVT and in that setting also developed pulmonary embolism. Consequently, developed atrial flutter. Apparently underwent cardioversion couple of times last at least 8 years ago. Then according to him, he underwent 2 ablations but not clear if it is flutter ablation or pulmonary vein isolation for atrial fibrillation. Last time around [id number]. Then according to patient 1 further episode of atrial fibrillation in 2019 in the setting of pneumonia. He was maintained on amiodarone for many years but we switch that to Multaq because of his age. More recently, no recurring atrial arrhythmias. For the most part he feels fine. Weight is just about the same as before. Otherwise, has COPD as well as obstructive sleep apnea. He is on supplemental oxygen. [facility] Medical History Hypoventilation associated with obesity syndrome COPD exacerbation Hx of atrial flutter Obesity DEVIN (obstructive sleep apnea) COPD (chronic obstructive pulmonary disease) Chronic diastolic heart failure Acute on chronic diastolic (congestive) heart failure Acute exacerbation of chronic obstructive airways disease Hyperthyroidism Venous insufficiency of both lower extremities Chronic respiratory failure Hx pulmonary embolism PAF (paroxysmal atrial fibrillation) Lung mass Surgical History H/O cardiac radiofrequency ablation Family History Father Bone cancer Mother COPD (chronic obstructive pulmonary disease) Social History Household Members: Spouse Household Members Other:: Housing: House Do you presently have visiting nurse or other home services: No Unable to assess alcohol history related to: Unknown Alcohol intake: current Alcohol intake frequency: holidays/special occasions only Patient Tobacco Use Status: Former Tobacco user Years Smoked: 30 years e-Cigarette/Vaping Use: Never Used Second Hand Smoke Exposure: No Advance Directives Date on File: 07/14/23 service: No Current occupational status: employed Cognitive needs: No Hearing needs: No Vision needs: Yes Review of Systems Const Denies chills, Denies fatigue, Denies fever(s), Denies frequent falls, Denies weakness, Denies weight gain and Denies weight loss ENT Denies dizziness Card Denies chest pain, Denies leg edema, Denies lightheadedness, Denies palpitations, Denies dyspnea and Denies dyspnea on exertion Resp Denies cough, Denies dyspnea and Denies dyspnea on exertion GI Denies hematochezia Musc Denies abnormal gait, Denies muscle weakness, Denies numbness, Denies radiating pain into limb and Denies tingling Neuro Denies abnormal gait, Denies dizziness, Denies frequent falls, Denies numbness, Denies tingling and Denies weakness Endo Denies fatigue and Denies palpitations Physical Exam Vital Signs: Last Vital Signs Pulse 84 10/14/24 14:42 BP 140/68 H 10/14/24 14:42 BMI result Body Mass Index 49.7 Const General: comfortable and no acute distress Orientation/consciousness: patient oriented x3 HEENT Other: Unremarkable Head: Yes normal to inspection Neck Neck: Yes normal visual inspection Chest Chest palpation & inspection: normal inspection of the chest Resp Auscultation: clear to auscultation bilaterally Cardio Palpation: normal PMI Heart sounds: S1 normal heart sound present, S2 normal heart sound present, no gallops, no murmurs and no rubs GI Palpation (GI): Soft to palpation Back/Spine/Pelvis Other: unremarkable Skin General skin exam: no rashes or lesions noted Neuro General: patient oriented x3 Extrem General: Yes normal to inspection Psych Mental Status: mental status grossly normal Office Procedures EKG Details: EKG with underlying sinus rhythm at 84/Min; cannot exclude old septal infarct but most likely from body habitus/lead placement as well as from lung disease; [place]. [id number], Complete Assessment & Plan Assessment & Plan (1) PAF (paroxysmal atrial fibrillation): Code(s): I48.0 - Paroxysmal atrial fibrillation Category: Medical (2) Paroxysmal atrial flutter: Code(s): I48.92 - Unspecified atrial flutter Category: Medical (3) Obesity: Code(s): E66.9 - Obesity, unspecified Category: Medical Qualifiers: Body mass index: BMI 45.0-49.9 Obesity classification: adult class 3 (BMI >= 40) Obesity type: unspecified obesity type Serious obesity comorbidity presence: with serious comorbidity Qualified Code(s): E66.01 - Morbid (severe) obesity due to excess calories; Z68.42 - Body mass index [BMI] 45.0-49.9, adult Plan Per prior records- 3 cardioversions in 2013 and 2014. Atrial flutter ablation 2014 and 2015. Report of failed flecainide therapy. In the recent echocardiogram, LVEF 65-70%. Moderate left ventricular hypertrophy. Mild left atrial dilatation. Holter with underlying sinus rhythm and an average rate of 67/Min; rare supraventricular and ventricular ectopy but otherwise unremarkable. Overall, he seems to be stable on Multaq. That can be continued. He is also on diltiazem/metoprolol. Continue anticoagulation without changes. His weight is still an issue and in fact he has gained weight recently. Have previously discussed about bariatric evaluation and again discussed today. Not sure if he will consider it. EKG in 3 months. Follow-up in 6 months. Coding Level of Care Code Est Pt Level 4 (32240) Diagnoses PAF (paroxysmal atrial fibrillation) I48.0 Paroxysmal atrial flutter I48.92 Class 3 severe obesity with serious comorbidity and body mass index (BMI) of 45.0 to 49.9 in adult, unspecified obesity type E66.01; Z68.42 Body mass index: BMI 45.0-49.9 Obesity classification: adult class 3 (BMI >= 40) Obesity type: unspecified obesity type Serious obesity comorbidity presence: with serious comorbidity CPT Codes EKG - CPT: [id number], Complete ([id number])
== END 2024-10-14 15:07 | disposition home or self-care (01) ==
PROVIDERS: PCP Internal Medicine; Visit Provider Internal Medicine
DX: I48.0 Paroxysmal atrial fibrillation (principal); I48.92 Unspecified atrial flutter; E66.01 Morbid (severe) obesity due to excess calories; Z68.42 Body mass index [BMI] 45.0-49.9, adult
CPT/HCPCS: 93010; 99214

== ENCOUNTER → 2024-10-14 14:34 | Outpatient (BNVA) | payer BC, SELFPAY | PROVIDERS: PCP Internal Medicine; Visit Provider Internal Medicine | DX: I48.0 Paroxysmal atrial fibrillation (principal); I48.92 Unspecified atrial flutter; E66.01 Morbid (severe) obesity due to excess calories; Z68.42 Body mass index [BMI] 45.0-49.9, adult; Z79.01 Long term (current) use of anticoagulants; Z79.899 Other long term (current) drug therapy | CPT/HCPCS: 93005 ==

== ENCOUNTER 2024-10-18 12:28 | Inpatient (IN) | payer BC, SELFPAY ==
[2024-10-18] VITALS (14 sets, daily range): BP systolic 135–165; BP diastolic 45–90; PULSE 86–107; RESP 19–28; TEMP 36.8–37.3; O2SAT 64–94; BMI 47.4
--- NOTE | ~2024-10-18 | XR_ITS ---
EXAMINATION: XR CHEST CLINICAL INFORMATION: dyspnea COMPARISON: October 06, 2023 TECHNIQUE: Frontal view of the chest was obtained. FINDINGS: There is low lung volume bilaterally with vascular redistribution and bibasilar atelectasis as well as small right-sided pleural effusion. There is mild cardiomegaly. XR/XR chest 1V IMPRESSION: Small pleural effusion and bibasilar atelectasis possibly mild CHF Electronically signed by: Chris Andrews MD 10/18/2024 03:35 PM EST
--- NOTE | ~2024-10-18 | CT_ITS ---
EXAMINATION: CT ANGIOGRAM CHEST CLINICAL INFORMATION: Hypoxia. COMPARISON: CT dated November 26, 2023. TECHNIQUE: Multiple axial images were obtained through the chest after the administration of 65 mL of Omnipaque 350 intravenous contrast without reported immediate complications. Extensive vascular post-processing including two-dimensional and three-dimensional reformatted images were created and reviewed on an independent workstation. This CT examination was performed using dose optimization techniques as appropriate, variously including the following: *Automated exposure control *Adjustment of mA and/or kV according to patient size (this includes techniques or standardized protocols for targeted exams where dose is matched to indication/reason for exam; i.e. extremities or head) *Use of iterative reconstruction technique DLP: 276 mGy-cm FINDINGS: No acute intraluminal filling defects within the main pulmonary artery or its main branches. No aneurysm or dissection, thoracic aorta. Nonspecific prominent lymph nodes in the mediastinum. Calcified plaques in the coronary arteries. No pericardial effusion. Calcified pleural plaques, right lower hemithorax. Pulmonary mosaic pattern. No pleural effusion. No pneumothorax. There are few scattered less than 2 mm calcified pulmonary nodules in the lung bases. Respiratory airways patent. Multilevel spondylosis more conspicuous at T11-12, T12-L1 and to a lesser extent C3-4. No acute fracture or gross listhesis Desiccation within the lumen of the contracted gallbladder. Decreased/volume loss pancreatic parenchyma.. CT/CT angio chest PE protocol IMPRESSION: No acute pulmonary artery emboli. No aneurysm or dissection, thoracic aorta. Consider mild interstitial lung edema in the correct clinical settings versus small airway disease versus small pulmonary artery disease. Cholelithiasis. Fleischner guidelines were followed. Electronically signed by: Michael Vuong MD 10/21/2024 01:37 PM TREVER
--- NOTE | 2024-10-18 13:15 | ED.GENADULT ---
HPI - General Adult General Chief complaint: General Medical Stated complaint: SOB Time Seen by Provider: 10/18/24 13:14 Source: patient Mode of arrival: ambulatory Limitations: no limitations History of Present Illness HPI narrative: This is a 63-year-old man with a past medical history of COPD, atrial fibrillation/flutter, history of PE, on Eliquis, hyperthyroidism, DEVIN who presents for evaluation of dyspnea. The patient reports gradually worsening dyspnea over the last approximate week. Patient states that he has noticed that he has had increased oxygen requirement at home and is having to use his supplemental oxygen more frequently. He states no fevers. He states no sputum production or hemoptysis. He states no trauma. He states no chest pain. He states no syncope. He states that he did use his nebulizer treatment 3 times yesterday and once this morning with some relief, but still he states that has increased dyspnea from his baseline. He states that he does use his CPAP at night. He states no GI or symptoms. States that he did take 1 extra dose of Lasix yesterday. He states he normally takes it twice a day. Related Data Home Medications ?Medication ?Instructions ?Recorded ?Confirmed albuterol sulfate 90 mcg/actuation 2 puff inhalation QID PRN Wheezing 07/01/22 10/14/24 aerosol inhaler cholecalciferol (vitamin D3) 25 25 mcg PO BEDTIME 07/01/22 10/14/24 mcg (1,000 unit) tablet multivitamin 1 tab PO BEDTIME 07/01/22 10/14/24 acetaminophen 500 mg tablet 1,000 mg PO Q6H PRN Pain 07/08/23 10/14/24 omeprazole magnesium 20 mg 20 mg PO DAILY@0630 07/08/23 10/14/24 capsule,delayed release thiamine HCl (vitamin B1) 500 mg 500 mg PO BEDTIME 07/08/23 10/14/24 tablet vitamin E 268 mg (400 unit) capsule 268 mg PO BEDTIME 07/08/23 10/14/24 CPAP (CPAP Machine/Device) 07/21/23 10/14/24 Oxygen Home Use 07/21/23 10/14/24 nebulizers 07/21/23 10/14/24 Previous Rx's ?Medication ?Instructions ?Recorded compr.stocking,knee,long,large #12 ea 04/24/23 albuterol sulfate 2.5 mg/3 mL 2.5 mg (3 mL) inhalation BID 90 09/29/23 (0.083 %) solution for nebulization days #540 mL methimazole 5 mg tablet 2.5 mg (1/2 x 5 mg) PO BEDTIME #90 03/30/24 tabs metoprolol succinate 100 mg 100 mg PO BEDTIME #90 tabs 04/19/24 tablet,extended release 24 hr furosemide 40 mg tablet 40 mg PO BID edema #180 tabs 06/16/24 apixaban 5 mg tablet (Eliquis) 5 mg PO BID #180 tabs 07/14/24 roflumilast 500 mcg tablet 500 mcg PO BEDTIME 90 days #90 tabs 07/19/24 ferrous sulfate 325 mg (65 mg 325 mg PO DAILY #90 tabs 09/07/24 iron) tablet fluticasone fur. 200 mcg-umeclid 1 inh inhalation DAILY 90 days #3 09/07/24 62.5 mcg-vilant 25 mcg ea inhalat.powder (Trelegy Ellipta) Wegovy 0.25 mg/0.5 mL subcutaneous 0.25 mg (0.5 mL) subcut QWEEK #2 mL 09/13/24 pen injector (semaglutide (weight loss)) diltiazem HCl 240 mg capsule,24 240 mg PO BEDTIME 90 days #90 caps 09/14/24 hr,extended release dronedarone 400 mg tablet (Multaq) 400 mg PO BID #180 tabs 10/12/24 Allergies Allergy/AdvReac Type Severity Reaction Status Date / Time No Known Allergies Allergy Verified 10/18/24 12:58 Review of Systems Review of Systems: ROS as per HPI [facility] Past Medical History Medical History Hypoventilation associated with obesity syndrome COPD exacerbation Hx of atrial flutter Obesity DEVIN (obstructive sleep apnea) COPD (chronic obstructive pulmonary disease) Chronic diastolic heart failure Acute on chronic diastolic (congestive) heart failure Acute exacerbation of chronic obstructive airways disease Hyperthyroidism Venous insufficiency of both lower extremities Chronic respiratory failure Hx pulmonary embolism PAF (paroxysmal atrial fibrillation) Lung mass Surgical History H/O cardiac radiofrequency ablation Family History Family History Father Bone cancer Mother COPD (chronic obstructive pulmonary disease) Social History Social History Household Members: Spouse Household Members Other:: Housing: House Do you presently have visiting nurse or other home services: No Unable to assess alcohol history related to: Unknown Alcohol intake: current Alcohol intake frequency: holidays/special occasions only Patient Tobacco Use Status: Former Tobacco user Years Smoked: 30 years Smoked in Last 30 Days: No e-Cigarette/Vaping Use: Never Used Second Hand Smoke Exposure: No Use of substances other than those prescribed or required for medical reasons: No Advance Directives: Yes Advance Directives on File: Yes Advance Directives Date on File: 07/14/23 Do you have a plan to hurt others: No Plan service: No Current occupational status: employed Cognitive needs: No Hearing needs: No Vision needs: Yes Physical Exam ED Vital Signs: Vital Signs - 24 hr 10/18/24 12:52 10/18/24 13:00 10/18/24 13:03 Temperature 99.2 F Pulse Rate 96 92 Respiratory Rate 28 H 20 Blood Pressure 165/45 H 154/90 H Pulse Oximetry 73 L 64 L 94 Oxygen Delivery Method Nasal Cannula Nasal Cannula Oxymask Oxygen Flow Rate 3 8 10/18/24 13:06 10/18/24 13:19 10/18/24 14:56 Temperature 98.7 F 98.3 F Pulse Rate 86 93 Respiratory Rate 23 H 22 H Blood Pressure 163/84 H Pulse Oximetry 90 L Oxygen Delivery Method Nasal Cannula Oxygen Flow Rate 4 10/18/24 14:57 Temperature Pulse Rate Respiratory Rate Blood Pressure 161/81 H Pulse Oximetry Oxygen Delivery Method Oxygen Flow Rate BMI result Body Mass Index 47.4 Gen: NAD, AOx3 HEENT: NCAT, EOMI, normal conjunctiva CV: RRR, 1+ pretibial pitting edema, no murmurs appreciated Pulm: Mildly diminished lung sounds, scattered expiratory wheezes in the posterior lung bases L>R, no rhonchi, no respiratory distress GI: Soft, NTND Neuro: Grossly non focal Medications Administered Discontinued Medications Generic Name Dose Route Start Last Admin Trade Name Freq PRN Reason Stop Dose Admin Albuterol Sulfate 2.5 mg/ 0 mg 11/18/24 13:19 10/18/24 13:25 Albuterol/Ipratropium 3 ml INHALE 10/18/24 13:20 5 dose ONCE ONE Administration Furosemide 40 mg 10/18/24 14:33 10/18/24 14:57 Furosemide 40 Mg/4 Ml Vial IVPUSH 10/18/24 14:34 40 mg ONCE ONE Administration Protocol Potassium Chloride 20 meq 10/18/24 14:32 10/18/24 14:56 Potassium Chloride Er 20 Meq Tab.Er.Prt PO 10/18/24 14:33 20 meq ONCE ONE Administration Potassium Chloride 20 meq 10/18/24 14:32 10/18/24 14:57 Potassium Chloride Er 20 Meq Tab.Er.Prt PO 10/18/24 14:33 20 meq ONCE ONE Administration Medical Decision Making Medical Decision Making MDM Narrative: Differential diagnosis includes, but is not limited to COPD exacerbation, acute decompensated congestive heart failure, acute hypoxic respiratory failure. Considered pneumonia and viral syndrome, but there are no infectious symptoms inpatient is without fever here in the emergency room. This is not sepsis. Patient is afebrile and hemodynamically stable on 4 liters/minute supplemental oxygen via nasal cannula. There is no clinical indication for noninvasive mechanical ventilation although it was considered. Patient is resting comfortably with no increased work of breathing at rest. He certainly will benefit from ongoing pulmonary hygiene and diuresis. He does wear CPAP nightly, which course he will need during this admission as well. I reviewed and interpreted the patient's labs and chest x-ray as below. Patient is provided nebulized bronchodilator therapy here in the emergency room. Given concern for component acute decompensated congestive heart failure, he is provided a diuresis with the 40 mg IV Lasix. Consider use of corticosteroids, but do not want to contribute to fluid overload in the setting of acute decompensated congestive heart failure so this is not given at this time. I suspect that wheezing on exam consistent with a bronchospasm will continue to improve with optimized bronchodilator regimen. I discussed the patient's case and management with admitting hospitalist, Dr. Lawton, and patient is accepted for further workup and management. Critical Care Time: A total of 45 minutes spent in direct patient care with coordinating critical resuscitation, procedures, reviewing records, discussing with consultants, reviewing labs, and/or managing patient. Admission/Observation Consideration of admission/observation: Escalation of care including admission/observation considered Consult Healthcare Provider Management of the patient was discussed with: Hospitalist Lab Data MDM Lab Attestation statement: I reviewed the patient's lab results. I independently reviewed and interpreted the patient's blood work including CBC, metabolic panel, troponin, BNP. CBC is notable for leukocytosis of 11.7, which is nonspecific. Patient is afebrile with no infectious symptoms at this time. This is likely reactive in nature secondary to COPD and decompensated congestive heart failure. There is stable chronic anemia with hemoglobin of 12.6 (previous 13.7). Metabolic panel overall reassuring. Troponin reassuring at 12.4. BNP only 66, but patient does have elevated BMI. Patient is negative for COVID-19, influenza and RSV. 10/18/24 13:19 10/18/24 13:19 Labs: Lab Results 10/18/24 10/18/24 Range/Units 13:19 13:21 WBC 11.7 H (4.8-10.8) X10*3/uL RBC 4.68 (4.60-5.80) X10*6/uL Hgb 12.6 L (14.0-18.0) g/dl Hct 41.2 L (42.0-52.0) % MCV 88.0 (80.0-98.0) fL MCH 26.9 L (27.0-33.0) pg MCHC 30.6 L (31.0-36.0) g/dl RDW 17.2 H (11.0-16.0) % Plt Count 218 (160-400) X10*3/uL MPV 10.4 (9.4-12.4) fL Immature Gran % (Auto) 0.4 (0.0-0.4) % Neut % (Auto) 79.8 H (45-73) % Lymph % (Auto) 9.3 L (20-40) % [place] % (Auto) 9.0 (2-11) % Eos % (Auto) 1.0 (0-4) % Baso % (Auto) 0.5 (0-2) % Lymph # (Auto) 1.1 L (1.2-4.9) X10*3/uL [place] # (Auto) 1.1 (0.1-1.2) X10*3/uL Eos # (Auto) 0.1 (0.0-0.4) X10*3/uL Baso # (Auto) 0.1 (0.0-0.2) X10*3/uL Abs Immat Gran (auto) 0.05 H (0.00-0.03) X10*3/uL Absolute Neuts (auto) 9.3 H (2.0-8.3) x10*3/uL Absolute Nucleated RBC 0.000 (0.0-0.012) X10*3/uL Nucleated RBC % (auto) 0.0 (0.0-0.2) /100WBC Sodium 142 (135-145) mmol/L Potassium 3.6 D (3.3-5.1) mmol/L Chloride 95 L (96-108) mmol/L Carbon Dioxide 38 H (22-29) mmol/L Anion Gap 13 (12-20) BUN 12 (9-16) mg/dL Creatinine 0.68 (0.5-1.4) mg/dL Estim Creat Clear Calc 170.2 Estimated GFR > 60 Random Glucose 101 (60-115) mg/dL Calcium 8.7 (8.4-10.2) mg/dL Total Bilirubin 0.6 (0.0-1.0) mg/dL AST 26 (5-37) U/L ALT 24 (0-40) U/L Alkaline Phosphatase 70 (39-117) U/L Troponin I High Sens 12.4 (<3.5-35.0) ng/L B-Natriuretic Peptide 66 (<100) pg/mL Total Protein 6.8 (6.5-8.0) g/dL Albumin 3.7 (3.5-5.0) g/dL Influenza Type A (PCR) NEGATIVE (Negative) Influenza Type B (PCR) NEGATIVE (Negative) RSV RNA Qual (PCR) NEGATIVE (Negative) SARS-CoV-2 RNA (RT-PCR) NEGATIVE (Negative) Independent Interpretation I performed an independent interpretation of an: Plain X-Ray Interpretation: I independently reviewed and interpreted the patient's chest x-ray, which demonstrates a small right-sided pleural effusion, no pneumothorax or focal consolidation. Radiology Impression Discussion of test interpretation with radiology: I have reviewed the radiologist's reading. Radiologist Impression: XR/XR chest 1V IMPRESSION: Small pleural effusion and bibasilar atelectasis possibly mild CHF Electronically signed by: Chris Andrews MD 10/18/2024 03:35 PM [facility] [place] Dictated By: Chris Andrews MD Signed By: <Electronically signed by Chris Andrews MD in OV> 10/18/24 1532 Discharge Plan Discharge Clinical Impression: Acute hypoxic respiratory failure, COPD (chronic obstructive pulmonary disease), CHF (congestive heart failure) Patient Disposition: Admitted As Inpatient Prescriptions: No Action albuterol sulfate 2.5 mg /3 mL (0.083 %) solution for nebulization 2.5 mg INHALATION BID 90 Days Qty: 540 3RF methimazole 5 mg tablet 2.5 mg PO BEDTIME Qty: 90 1RF metoprolol succinate 100 mg tablet extended release 24 hr 100 mg PO BEDTIME Qty: 90 3RF furosemide 40 mg tablet 40 mg PO BID Qty: 180 1RF Eliquis 5 mg tablet 5 mg PO BID Qty: 180 3RF roflumilast 500 mcg tablet 500 mcg PO BEDTIME 90 Days Qty: 90 3RF ferrous sulfate 325 mg (65 mg iron) tablet 325 mg PO DAILY Qty: 90 1RF Trelegy Ellipta 200-62.5-25 mcg blister with device 1 inh inhalation DAILY 90 Days Qty: 3 3RF diltiazem HCl 240 mg capsule,extended release 24 hr 240 mg PO BEDTIME 90 Days Qty: 90 3RF Multaq 400 mg tablet 400 mg PO BID Qty: 180 3RF multivitamin Tablet 1 tab PO BEDTIME albuterol sulfate 90 mcg/actuation Hfa Aerosol Inhaler 2 puff INHALATION QID PRN (Reason: Wheezing) cholecalciferol (vitamin D3) 25 mcg (1,000 unit) Tablet 25 mcg PO BEDTIME thiamine HCl (vitamin B1) 500 mg Tablet 500 mg PO BEDTIME acetaminophen 500 mg Tablet 1,000 mg PO Q6H PRN (Reason: Pain) vitamin E 268 mg (400 unit) Capsule 268 mg PO BEDTIME omeprazole magnesium 20 mg Capsule,Delayed Release(Dr/Ec) 20 mg PO DAILY@0630 (DME) compr.stocking,knee,long,large Misc See Rx Instructions .Route Qty: 12 0RF Rx Instructions: As directed (DME) CPAP Machine/Device Device See Rx Instructions .Route Rx Instructions: As directed (DME) Oxygen Home Use Kit See Rx Instructions .Route Rx Instructions: As directed (DME) nebulizers Misc See Rx Instructions .Route Rx Instructions: As directed Wegovy 0.25 mg/0.5 mL pen injector 0.25 mg subcut QWEEK Qty: 2 0RF Rx Instructions: administer weeks 1 through 4 of therapy Print Language: Azeri
--- NOTE | 2024-10-18 13:23 | PC.NURSE ---
Pt presents to ED from triage, reports for a few days he has had SOB and low SPO2, felt clammy and unwell. On 2L O2 Baseline for COPD, when he arrived here he was 65% on his baseline O2, noted to drop with any exertion or talking. Pt placed on oxymask initially at 8L, titrated down to 4L once he reached >91%. Pt is alert and oriented, breathing unlabored at rest, skin clammy and warm. NSR on bedside rn cardiac.
--- NOTE | 2024-10-18 13:24 | PC.NURSE ---
RT at bedside giving breathing rx.
[2024-10-18 13:25] LABS: MANUAL DIFF FLAG NO
[2024-10-18] MEDS: Albuterol Sulfate 2.5 MG, Albuterol/Iprat 2.5/0.5MG 3 ML 3 ML INHALE (13:25)
[2024-10-18 13:27] LABS: Basophils Absolute Auto 0.1 X10*3/uL (0.0-0.2); Basophils Percent Auto 0.5 % (0-2); Eosinophils Absolute Auto 0.1 X10*3/uL (0.0-0.4); Hematocrit 41.2 % (42.0-52.0); Hemoglobin 12.6 g/dl (14.0-18.0); Imm Gran Abs Auto 0.05 X10*3/uL (0.00-0.03); Imm Gran Pct Auto 0.4 % (0.0-0.4); Lymphocytes Absolute Auto 1.1 X10*3/uL (1.2-4.9); Lymphocytes Percent Auto 9.3 % (20-40); Mean Corpuscular HGB Conc 30.6 g/dl (31.0-36.0); Mean Corpuscular Hemoglobin 26.9 pg (27.0-33.0); Mean Platelet Volume 10.4 fL (9.4-12.4); Monocytes Absolute Auto 1.1 X10*3/uL (0.1-1.2); Neutrophils Absolute Auto 9.3 x10*3/uL (2.0-8.3); Neutrophils Percent Auto 79.8 % (45-73); Platelet Count 218 X10*3/uL (160-400); Red Blood Count 4.68 X10*6/uL (4.60-5.80); Red Cell Distribution Width 17.2 % (11.0-16.0); White Blood Count 11.7 X10*3/uL (4.8-10.8)
[2024-10-18 13:47] LABS: B Type Natriuretic Peptide 66 pg/mL (<100)
[2024-10-18 13:48] LABS: Troponin-I High Sensitivity 12.4 ng/L (<3.5-35.0)
[2024-10-18 13:59] LABS: Alanine Aminotransferase 24 U/L (0-40); Albumin Level 3.7 g/dL (3.5-5.0); Alkaline Phosphatase 70 U/L (39-117); Anion Gap 13 (12-20); Aspartate Amino Transferase 26 U/L (5-37); Bilirubin Total 0.6 mg/dL (0.0-1.0); Blood Urea Nitrogen 12 mg/dL (9-16); Calcium 8.7 mg/dL (8.4-10.2); Carbon Dioxide 38 mmol/L (22-29); Chloride 95 mmol/L (96-108); Creatinine Clr Calc Pharmacy 170.2; Estimated Glomerular Filt Rate > 60; Glucose Random 101 mg/dL (60-115); Potassium 3.6 mmol/L (3.3-5.1); Sodium 142 mmol/L (135-145); Total Protein 6.8 g/dL (6.5-8.0)
[2024-10-18 14:35] LABS: Influenza A PCR NEGATIVE (Negative); Influenza B PCR NEGATIVE (Negative); Resp Syncy Virus RNA Qual PCR NEGATIVE (Negative); SARS COV2 PCR INHOUSE NEGATIVE (Negative)
[2024-10-18] MEDS: Potassium Chloride ER 20 MEQ TAB.ER.PRT PO ×2 (14:56→14:57)
[2024-10-18] MEDS: Furosemide 40 MG/4 ML VIAL IVPUSH (14:57)
--- NOTE | 2024-10-18 15:23 | PC.NURSE ---
Pt sat at edge of bed to urinate with urinal, remained on his O2 and desat to 68%, became significantly SOB. Placed on 8L and titrated down until he was at 4L O2 NC and >91%. Provider alerted.
[2024-10-18] MEDS: 0.9 % Sodium Chloride Flush 3 ML SYRINGE IVFLUSH (16:37)
--- NOTE | 2024-10-18 16:37 | P.HPHOSP_ITS ---
History of Present Illness Date of Service: 10/18/24 Chief Complaint: Heart failure, Hypoxia A 63 years old male with PMH of COPD, Afib on Eliquis, DEVIN on bipap among others who presented with worsening dyspnea on exertion and increase O2 supplement. The patient reports worsening dyspnea with minimal exertion and increase O2 requirements to 6-7L. No chest pain, palpitations, SOB, nausea, vomiting, diarrhea or urinary symptoms. The patient uses BiPap at bedtime. he works 40 hours a week and uses O2 usually with exertion but at rest he can sat 90% on RA. In ED found hypoxic to 85% on 6L. BNP elevated. CXR suggestive of pulmonary edema. Will be admitted for further evaluation and treatment. Review of Systems 2 Review of Systems: No fever, chills or weakness No chest pain, palpitation reporting shortness of breath and coughing No abdominal pain, nausea or vomiting No urinary symptoms No any rash or wounds edema in [facility] Medical History Hypoventilation associated with obesity syndrome COPD exacerbation Hx of atrial flutter Obesity DEVIN (obstructive sleep apnea) COPD (chronic obstructive pulmonary disease) Chronic diastolic heart failure Acute on chronic diastolic (congestive) heart failure Acute exacerbation of chronic obstructive airways disease Hyperthyroidism Venous insufficiency of both lower extremities Chronic respiratory failure Hx pulmonary embolism PAF (paroxysmal atrial fibrillation) Lung mass Family History Father Bone cancer Mother COPD (chronic obstructive pulmonary disease) Surgical History H/O cardiac radiofrequency ablation Social History Household Members: Spouse Household Members Other:: Housing: House Do you presently have visiting nurse or other home services: No Unable to assess alcohol history related to: Unknown Alcohol intake: current Alcohol intake frequency: holidays/special occasions only Patient Tobacco Use Status: Former Tobacco user Tobacco use type: Cigarette Cigarette Packs Per Day: 1.5 Cigarettes Per Day: 30.0 Years Smoked: 25 Smoked in Last 30 Days: No e-Cigarette/Vaping Use: Never Used Patient Interested in Nicotine Replacement: No Patient Given Instructions on How to Stop Smoking: No Second Hand Smoke Exposure: No Use of substances other than those prescribed or required for medical reasons: No Currently Displaying Signs/Symptoms of Drug Intoxication Withdrawal: No Any prior treatment program specific to substance use: No Have you been hit, kicked, punched, or otherwise hurt by someone within the past year? If so, by whom?: No Do you feel safe in your current relationship?: No Is there a partner from a previous relationship who is making you feel unsafe now?: No Are you made to feel afraid or neglected: No Advance Directives: Yes Advance Directives on File: Yes Advance Directives Date on File: 07/14/23 Do you have a plan to hurt others: No Plan Recently lost weight without trying: No Eating poorly because of decreased appetite: No Nutrition Risks: No Nutritional Risk Poor oral hygiene: No service: No Current occupational status: employed Cognitive needs: No Hearing needs: No Vision needs: Yes Meds Allergies Allergy/AdvReac Type Severity Reaction Status Date / Time No Known Allergies Allergy Verified 10/18/24 12:58 Active Medications: Current Medications Acetaminophen (Acetaminophen 325 Mg Tablet) 650 mg PO Q6H PRN PRN Reason: Pain, Mild (Pain Scale 1-3), fever or headache Albuterol Sulfate (Albuterol Sulfate (0.083%) 2.5 Mg/3 Ml Vial.Neb) 2.5 mg INHALE Q4H PRN PRN Reason: Shortness of Breath/Wheezing Albuterol/Ipratropium (Albuterol/Iprat 2.5/0.5mg 3 Ml Ampul.Neb) 3 ml INHALE RQ6H WHILE AWAKE JIMMY Apixaban (Apixaban 5 Mg Tablet) 5 mg PO BID JIMMY Benzonatate (Benzonatate 100 Mg Capsule) 100 mg PO TID PRN PRN Reason: Cough Calcium Carbonate (Calcium Carbonate 750 Mg Tab.Chew) 750 mg PO Q4H PRN PRN Reason: Heartburn Diltiazem HCl (Diltiazem Hcl Cd 240 Mg Cap.Er.Deg) 240 mg PO BEDTIME JIMMY; Protocol Dronedarone (Dronedarone Hcl 400 Mg Tablet) 400 mg PO BID JIMMY Furosemide (Furosemide 40 Mg/4 Ml Vial) 40 mg IVPUSH BID@0900,1800 JIMMY; Protocol Magnesium Hydroxide (Milk Of Magnesia 30 Ml Oral.Susp) 30 ml PO DAILY PRN PRN Reason: Constipation Melatonin (Melatonin 3 Mg Tablet) 6 mg PO BEDTIME PRN PRN Reason: Insomnia Metoprolol Succinate (Metoprolol Succinate Er 100 Mg Tab.Er.24h) 100 mg PO BEDTIME [facility]; Protocol Omeprazole (Omeprazole 20 Mg Capsule.Dr) 20 mg PO DAILY@0630 [facility] Ondansetron HCl (Ondansetron Hcl 4 Mg/2 Ml Vial) 4 mg IVPUSH Q8H PRN PRN Reason: Nausea and Vomiting Sodium Chloride (0.9 % Sodium Chloride Flush 3 Ml Syringe) 3 ml IVFLUSH QSHIFT [facility] Last Admin: 10/18/24 16:37 Dose: 3 ml Home Medications ?Medication ?Instructions ?Recorded ?Confirmed ?Last Taken ?Type cholecalciferol (vitamin D3) 25 25 mcg PO BEDTIME 07/01/22 10/18/24 10/17/24 History mcg (1,000 unit) tablet multivitamin 1 tab PO BEDTIME 07/01/22 10/18/24 10/17/24 History acetaminophen 500 mg tablet 1,000 mg PO Q6H PRN Pain 07/08/23 10/18/24 07/08/23 History omeprazole magnesium 20 mg 20 mg PO DAILY@0630 07/08/23 10/18/24 10/18/24 History capsule,delayed release thiamine HCl (vitamin B1) 500 mg 500 mg PO BEDTIME 07/08/23 10/18/24 10/17/24 History tablet vitamin E 268 mg (400 unit) capsule 268 mg PO BEDTIME 07/08/23 10/18/24 10/17/24 History CPAP (CPAP Machine/Device) 07/21/23 10/14/24 Unknown History Oxygen Home Use 07/21/23 10/14/24 Unknown History nebulizers 07/21/23 10/14/24 Unknown History amoxicillin 500 mg capsule 500 mg PO Q8H 10/18/24 10/18/24 10/18/24 History ferrous sulfate 325 mg (65 mg 325 mg PO MOTUWETHFR@0900 10/18/24 10/18/24 10/18/24 History iron) tablet Physical Exam 2 Vital Signs and Narrative: Vital Signs: Last Vital Signs Temp 98.3 F 10/18/24 14:56 Pulse 93 10/18/24 14:56 Resp 22 H 10/18/24 14:56 BP 161/81 H 10/18/24 14:57 Pulse Ox 90 L 10/18/24 14:56 O2 Del Method Nasal Cannula 10/18/24 14:56 O2 Flow Rate 4 10/18/24 14:56 Oxygen Flow Rate 2 10/18/24 12:52 BMI result Body Mass Index 47.4 Const: Other: Constitutional : Awake, interactive, not in distress Neck : Normal inspection, Supple Cardiovascular : RRR, no JVP, +1 lower extremity edema Respiratory : fair bilateral air entry, basal fine crackles, no wheezes Gastrointestinal: soft, lax, Normal bowel sounds, Non tender Skin : Warm, Dry Neurological : Alert & oriented x3, No focal deficit Results Labs 10/18/24 13:19 10/19/24 08:13 Labs: Laboratory Results - last 24 hr 10/18/24 10/18/24 13:19 13:21 MCV 88.0 MCH 26.9 L MCHC 30.6 L RDW 17.2 H Plt Count 218 MPV 10.4 Immature Gran % (Auto) 0.4 Neut % (Auto) 79.8 H Lymph % (Auto) 9.3 L [place] % (Auto) 9.0 Eos % (Auto) 1.0 Baso % (Auto) 0.5 Lymph # (Auto) 1.1 L [place] # (Auto) 1.1 Eos # (Auto) 0.1 Baso # (Auto) 0.1 Abs Immat Gran (auto) 0.05 H Absolute Neuts (auto) 9.3 H Absolute Nucleated RBC 0.000 Nucleated RBC % (auto) 0.0 Anion Gap 13 Estim Creat Clear Calc 170.2 Estimated GFR > 60 Random Glucose 101 Calcium 8.7 Total Bilirubin 0.6 AST 26 ALT 24 Alkaline Phosphatase 70 Troponin I High Sens 12.4 B-Natriuretic Peptide 66 Total Protein 6.8 Albumin 3.7 Influenza Type A (PCR) NEGATIVE Influenza Type B (PCR) NEGATIVE RSV RNA Qual (PCR) NEGATIVE SARS-CoV-2 RNA (RT-PCR) NEGATIVE Imaging Radiologist's Impressions: Impressions Chest X-Ray 10/18/24 13:50 IMPRESSION: Small pleural effusion and bibasilar atelectasis possibly mild CHF Electronically signed by: Chris Andrews MD 10/18/2024 03:35 PM [facility] [place] Assessment and Plan (1) CHF (congestive heart failure): Status: Acute (2) COPD (chronic obstructive pulmonary disease): Status: Acute (3) Acute hypoxic respiratory failure: Status: Acute Plan A 63 years old male with PMH of COPD, Afib on Eliquis, DEVIN on bipap among others who presented with worsening dyspnea on exertion and increase O2 supplement. Acute on chronic hypoxic respiratory failure 2/2 acute CHF exacerbation CXR showing pulmonary edema and effusion not responding to PO Lasix Start IV lasix drip monitor I\O wean O2 down as tolerated Hx COPD doesnt seem in exacerbation Use Nebs and home inhalers DEVIN , use Bipp Paroxysmal Afib, rate controlled, Eliquis , Metoprolol, cardizem and Multaq Hyperthyroidism, Methimazole Morbid obesity, weight loss advised DVT PPx Eliquis The patient will need overnight hospital stay for treatment of hypoxia 2/2 acute heart failure on Lasix drip pending clinical improvement, weanind down O2 Quality Stroke Does the patient have a stroke diagnosis?: No VTE Prior VTE?: Yes VTE Risk Level:: Medical - moderate - high VTE Device Contraindication: Treatment Not Indicated VTE Drug Contraindication: N/A - Med Ordered
--- NOTE | 2024-10-18 17:09 | PHA.MEDREC ---
Addendum entered by Bhavna Samayoa RPh 10/18/24 18:41: [facility] REVIEWED Original Note: Pharmacy Consult ? Medication Reconciliation Pharmacy has completed the medication reconciliation. Confirmed medications with patient. Patient confirmed he started the Amoxicillin 500mg tab on Monday 10/15 and took it this morning. He confirmed his Dr approved him to start taking his Iron tablet Friday-Friday in the last week and stated he took it this morning. He stated he has not been able to start the Wegovy 0.25mg/0.5mL injection and stated his pharmacy has had it on back order and no other place has it. He confirmed he took all his morning medications this morning and his bedtime medications last night.
[2024-10-18] MEDS: metOLazone 2.5 MG TABLET PO (17:34)
[2024-10-18] MEDS: Furosemide 200 MG in 0.9 % Sodium Chloride 80 ML IVCONT (18:27)
--- NOTE | 2024-10-18 19:01 | PC.NURSE ---
Lasix drip infusing. Pt refusing [place] cath or urinal, provider aware and ok with pt standing at commode at bedside. Monitor him during these periods and increase O2 as needed. Pt maintaining 88-92% on 4L NC, reports he is overall feeling better. No pain
[2024-10-18] MEDS: Albuterol/Iprat 2.5/0.5MG 3 ML AMPUL.NEB INHALE (19:32)
[2024-10-18] MEDS: Metoprolol Succinate ER 100 MG TAB.ER.24H PO (22:05)
[2024-10-18] MEDS: Apixaban 5 MG TABLET PO (22:05)
[2024-10-18] MEDS: Dronedarone HCl 400 MG TABLET PO (22:22)
[2024-10-18] MEDS: dilTIAZem HCL CD 240 MG CAP.ER.DEG PO (22:22)
--- NOTE | 2024-10-18 23:20 | MHC.EDTECH ---
this tech assumed care of pt at 2300, when rounding the pt was witnessed sitting up in stretcher, in no apparent distress, and requested a drink. Call light within reach for safety and no other needs were made at this time.
[2024-10-19] VITALS (9 sets, daily range): BP systolic 132–161; BP diastolic 68–82; PULSE 71–96; RESP 12–19; TEMP 36.1–38.9; O2SAT 88–94; BMI 46.6
--- NOTE | 2024-10-19 01:20 | PC.ADMIT ---
Patient is alert/oriented, nsr on tele, +2LE non pit edema. Patient reports legs feel and look edematous. Overall patient reports feeling better than when he came in. Ambulatory and steady on his feet although high falls d/t iv pole and oxygen tank he needs to ambulate. He is anxious d/t respiratory status, gets sob with exertion. He came up on 6L n/c. He blew his nose and started bleeding but stopped shortly after. Lungs are clear/dim, RLL with fine crackles. SOB with exertion. He is on a Lasix drip at 5mg/hr as ordered. He has his home bipap that he is on with 4L supplemental oxygen. His abdomen is soft, non tender, LBM 1118. No issues voiding in the br. Will continue to monitor.
[2024-10-19] MEDS: Acetaminophen 325 MG TABLET 650 MG PO (04:01)
[2024-10-19] MEDS: Omeprazole 20 MG CAPSULE.DR PO (06:36)
[2024-10-19] MEDS: Dronedarone HCl 400 MG TABLET PO ×2 (08:30→19:46)
[2024-10-19] MEDS: Apixaban 5 MG TABLET PO ×2 (08:30→19:46)
[2024-10-19] MEDS: 0.9 % Sodium Chloride Flush 3 ML SYRINGE IVFLUSH (08:30)
[2024-10-19] MEDS: Albuterol/Iprat 2.5/0.5MG 3 ML AMPUL.NEB INHALE ×3 (08:34→19:31)
[2024-10-19 08:53] LABS: Anion Gap 19 (12-20); Blood Urea Nitrogen 13 mg/dL (9-16); Calcium 9.9 mg/dL (8.4-10.2); Carbon Dioxide 38 mmol/L (22-29); Chloride 86 mmol/L (96-108); Creatinine Clr Calc Pharmacy 141.5; Estimated Glomerular Filt Rate > 60; Glucose Random 142 mg/dL (60-115); Potassium 3.9 mmol/L (3.3-5.1); Sodium 139 mmol/L (135-145)
[2024-10-19 09:01] LABS: B Type Natriuretic Peptide 40 pg/mL (<100)
--- NOTE | 2024-10-19 10:54 | MHC.CM.PN ---
Pt. lives with his , Lissy, she is HCP and this is confirmed. PCP is confirmed: Alea Hull. He is independent, uses home O2 supplies, of O2 and CPAP from [facility]. His car is on the lot for transport home at [place]. DCP: home, self care. CM to follow and assist with DC plan.
[2024-10-19] MEDS: metOLazone 2.5 MG TABLET PO (11:58)
--- NOTE | 2024-10-19 11:59 | PC.NURSE ---
lost IV access, charge nurse made aware. saeid brock paused, Contacted for ultrasound guided IV placement.
--- NOTE | 2024-10-19 14:54 | P.PNIM_ITS ---
Subjective Subjective Date of Service: 10/19/24 Interval History: seen and evaluated this morning feels better still dyspniec with any exertion making fair amount of urine, I\O not calculated no other events Review of Systems No fever, chills or weakness No chest pain, palpitation reporting shortness of breath and coughing No abdominal pain, nausea or vomiting No urinary symptoms No any rash or wounds edema in LEs Physical Exam 2 Vital Signs: Vital Signs: Last Vital Signs Temp 96.9 F 10/19/24 11:21 Pulse 75 10/19/24 11:21 Resp 17 10/19/24 11:21 BP 142/77 H 10/19/24 11:21 Pulse Ox 92 10/19/24 11:21 O2 Del Method Nasal Cannula 10/19/24 11:21 O2 Flow Rate 4 10/19/24 11:21 Oxygen Flow Rate 2 10/18/24 12:52 BMI result Body Mass Index 46.6 Const: Other: Constitutional : Awake, interactive, not in distress Neck : Normal inspection, Supple Cardiovascular : RRR, no JVP, +1 lower extremity edema Respiratory : fair bilateral air entry, basal fine crackles more on right, no wheezes Gastrointestinal: soft, lax, Normal bowel sounds, Non tender Skin : Warm, Dry Neurological : Alert & oriented x3, No focal deficit Objective Data Active Medications Acetaminophen (Acetaminophen 325 Mg Tablet) 650 mg PO Q6H PRN PRN Reason: Pain, Mild (Pain Scale 1-3), fever or headache Last Admin: 10/19/24 04:01 Dose: 650 mg Documented By: ROASLEE Albuterol Sulfate (Albuterol Sulfate (0.083%) 2.5 Mg/3 Ml Vial.Neb) 2.5 mg INHALE Q4H PRN PRN Reason: Shortness of Breath/Wheezing Albuterol/Ipratropium (Albuterol/Iprat 2.5/0.5mg 3 Ml Ampul.Neb) 3 ml INHALE RQ6H WHILE AWAKE [facility] Last Admin: 10/19/24 08:34 Dose: 3 ml Documented By: NELLA Apixaban (Apixaban 5 Mg Tablet) 5 mg PO BID [facility] Last Admin: 10/19/24 08:30 Dose: 5 mg Documented By: MARIN Benzonatate (Benzonatate 100 Mg Capsule) 100 mg PO TID PRN PRN Reason: Cough Calcium Carbonate (Calcium Carbonate 750 Mg Tab.Chew) 750 mg PO Q4H PRN PRN Reason: Heartburn Diltiazem HCl (Diltiazem Hcl Cd 240 Mg Cap.Er.Deg) 240 mg PO BEDTIME [facility]; Protocol Last Admin: 10/18/24 22:22 Dose: 240 mg Documented By: ANGEL Dronedarone (Dronedarone Hcl 400 Mg Tablet) 400 mg PO BID [facility] Last Admin: 10/19/24 08:30 Dose: 400 mg Documented By: MARIN Furosemide 200 mg/ Sodium (Chloride) 100 mls @ 2.5 mls/hr IVCONT .Q24H [facility] Last Infusion: 10/19/24 12:36 Dose: 5 mg/hr, 2.5 mls/hr Documented By: MARIN Magnesium Hydroxide (Milk Of Magnesia 30 Ml Oral.Susp) 30 ml PO DAILY PRN PRN Reason: Constipation Melatonin (Melatonin 3 Mg Tablet) 6 mg PO BEDTIME PRN PRN Reason: Insomnia Metoprolol Succinate (Metoprolol Succinate Er 100 Mg Tab.Er.24h) 100 mg PO BEDTIME [facility]; Protocol Last Admin: 10/18/24 22:05 Dose: 100 mg Documented By: ANGEL Omeprazole (Omeprazole 20 Mg Capsule.Dr) 20 mg PO DAILY@0630 [facility] Last Admin: 10/19/24 06:36 Dose: 20 mg Documented By: ROSALEE Ondansetron HCl (Ondansetron Hcl 4 Mg/2 Ml Vial) 4 mg IVPUSH Q8H PRN PRN Reason: Nausea and Vomiting Sodium Chloride (0.9 % Sodium Chloride Flush 3 Ml Syringe) 3 ml IVFLUSH QSHIFT [facility] Last Admin: 10/19/24 08:30 Dose: 3 ml Documented By: MARIN Labs 10/18/24 13:19 10/19/24 08:13 Labs: Laboratory Results - last 24 hr 10/19/24 08:13 Anion Gap 19 Estim Creat Clear Calc 141.5 Estimated GFR > 60 Random Glucose 142 H Calcium 9.9 D B-Natriuretic Peptide 40 Assessment and Plan (1) CHF (congestive heart failure): Status: Acute (2) Acute on chronic respiratory failure with hypoxemia: Status: Acute Plan A 63 years old male with PMH of COPD, Afib on Eliquis, DEVIN on bipap among others who presented with worsening dyspnea on exertion and increase O2 supplement. Acute on chronic hypoxic respiratory failure 2/2 acute CHF exacerbation Improving CXR on admission showing pulmonary edema and effusion Continue IV lasix drip Metolazone 2.5 mg monitor I\O wean O2 down as tolerated Hx COPD doesnt seem in exacerbation Use Nebs and home inhalers DEVIN , use Bipp Paroxysmal Afib, rate controlled, Eliquis , Metoprolol, cardizem and Multaq Hyperthyroidism, Methimazole Morbid obesity, weight loss advised DVT PPx Eliquis The patient will need overnight hospital stay for treatment of hypoxia 2/2 acute heart failure on Lasix drip pending clinical improvement, wean down O2 Quality Stroke Does the patient have a stroke diagnosis?: No VTE Prior VTE?: Yes VTE Risk Level:: Medical - moderate - high VTE Device Contraindication: Treatment Not Indicated VTE Drug Contraindication: N/A - Med Ordered
[2024-10-19] MEDS: Furosemide 200 MG in 0.9 % Sodium Chloride 80 ML IVCONT (19:45)
[2024-10-19] MEDS: Metoprolol Succinate ER 100 MG TAB.ER.24H PO (19:46)
[2024-10-19] MEDS: dilTIAZem HCL CD 240 MG CAP.ER.DEG PO (19:46)
[2024-10-20] VITALS (8 sets, daily range): BP systolic 131–155; BP diastolic 72–82; PULSE 75–94; RESP 14–20; TEMP 36.3–36.9; O2SAT 90–94
[2024-10-20] MEDS: Omeprazole 20 MG CAPSULE.DR PO (06:30)
--- NOTE | 2024-10-20 07:00 | CA_ITS ---
Transthoracic Echocardiogram Patient (Last, First, Middle): Mario Dolan R Gender: Male Date of : 1960 Age: 63 Procedure Date: 10/20/2024 Procedure Type: Transthoracic [place] [facility] [place]: 180.34 cm Weight: 151.5 kg BSA: 2.62 m2 Heart Rate: bpm BP: 137 / 78 mmHg Manager Of Tax: Referring MD: Cam Powell MD [employer] Teacher: Tan Florence MD Symptoms: chf Study Quality: Technically Difficult due to body babitus ECG Rhythm: Sinus Conclusions: - 1. Technically limited study due to body habitus 2. Low normal LV ejection fraction 50-55% with impaired relaxation filling pattern 3. Cardiac valvular Doppler is within normal limits 4. Normal RV systolic pressure with normal right atrial pressures Findings Procedure Information Contrast agent, definity, is being given per protocol without apparent complications. Left Ventricle The left ventricle was not well visualized. Normal left ventricular cavity size. There is normal left ventricular wall thickness. The left ventricular systolic function is low normal. The visually estimated ejection fraction is between 50-55%. Regional wall motion abnormalities can not be excluded due to suboptimal endocardial definition. Spectral Doppler is indicative of an impaired relaxation filling pattern. E/E prime ratio is between 8 and 15 consistent with indeterminate filling pressures. Right Ventricle The right ventricle was not well visualized. Atria The left atrium was not well visualized. Interatrial shunt cannot be excluded. The right atrium was not well visualized. Aortic Valve The aortic valve was not well visualized. There is no aortic valve stenosis. There is no aortic valve regurgitation. Mitral Valve The mitral valve was not well visualized. There is trace mitral valve regurgitation. There is no mitral valve stenosis. Pulmonic Valve The pulmonic valve was not well visualized. Tricuspid Valve The tricuspid valve was not well visualized. Normal right atrial pressure. There is no evidence of pulmonary hypertension. Great Vessels The aorta was not well visualized. The pulmonary artery was not well visualized. Venous The inferior vena cava is normal in size and collapses greater than 50% with inspiration. Pericardium/Pleural The pericardium was not well visualized. Measurements 2D Linear Measurements IVSd: 1.06 0.6-0.9/0.6-1.0 cm LVIDd: 5.50 3.9-5.3/4.2-5.9 cm LVIDd Index: 2.10 2.4-3.2/2.2-3.1 cm/m2 LVIDs: 3.69 2.0-3.6 cm LVPWd: 1.08 0.7-1.1 cm Ao Root: 3.20 2.1-3.5 cm LA Diam: 3.90 2.7-3.8/3.0-4.0 cm LAIDs Index: 1.49 1.5-2.3 cm/m2 LV Mass: 290.75 67-162/88-224 g LV Mass Index: 110.97 43-95/49-115 g/m2 LVOT Diam: 2.10 3.0+(-)1.3 cm Mitral Valve MV Pk E: 0.54 MV PK A: 0.54 MV Decel Time: 209.00 E/A: 1.00 E'Lateral: 4.68 E'Medial: 4.68 E/E' Med: 11.50 E/E' Lat: 11.50 PHT: 61.00 MVA PHT: 3.61 Decel Whitman: 2.56 Aortic Valve AoV Pk Uche: 1.42 AoV Mn Uche: 0.91 AoV VTI: 0.27 AoV Pk Grad: 8.00 Aov Mn Grad: 4.00 MARTHA Cont.VTI: 1.90 LVOT LVOT Pk Uche: 0.69 LVOT Mn Uche: 0.48 LVOT VTI: 0.15 LVOT Pk Grad: 2.00 LVOT Mn Grad: 1.00 LVOT Diam: 2.10 LVOT Area: 3.46 Diastolic Function MV Pk E: 0.54 MV Pk A: 0.54 E/A: 1.00 E'Medial: 4.68 E/E' Med: 11.50 E' Laterial: 4.68 E/E' Lat: 11.50 Right Ventricle TAPSE (mm): 33.00 TVS' Uche: 15.00 Tricuspid Valve TR Pk Uche: 2.04 TR Pk Grad: 17.00 RA Press: 3.00 RVSP: 20.00 Great Vessels Aorta Ao Root-2D: 3.20 2.0-3.7 cm Pulmonary Valve PV Pk Uche: 1.30 Peak PV Grad: 7.00 Updated in Other Vendor System with Status of Final Tan Florence MD electronically signed on 10/20/2024 1:40:28 PM with status of Final
[2024-10-20] MEDS: Albuterol/Iprat 2.5/0.5MG 3 ML AMPUL.NEB INHALE ×3 (07:56→18:47)
[2024-10-20] MEDS: Dronedarone HCl 400 MG TABLET PO ×2 (08:27→20:19)
[2024-10-20] MEDS: 0.9 % Sodium Chloride Flush 3 ML SYRINGE IVFLUSH ×3 (08:27→20:20)
[2024-10-20] MEDS: Apixaban 5 MG TABLET PO ×2 (08:27→20:19)
[2024-10-20 09:36] LABS: Anion Gap 19 (12-20); Blood Urea Nitrogen 22 mg/dL (9-16); Calcium 9.9 mg/dL (8.4-10.2); Carbon Dioxide 44 mmol/L (22-29); Chloride 80 mmol/L (96-108); Estimated Glomerular Filt Rate > 60; Glucose Random 123 mg/dL (60-115); Sodium 139 mmol/L (135-145)
--- NOTE | 2024-10-20 11:53 | P.PNIM_ITS ---
Subjective Subjective Date of Service: 10/20/24 Interval History: sob a bit better, having some leg cramps Physical Exam 2 Vital Signs: Vital Signs: Last Vital Signs Temp 97.3 F 10/20/24 08:00 Pulse 80 10/20/24 08:00 Resp 20 10/20/24 08:00 BP 137/78 10/20/24 08:00 Pulse Ox 94 10/20/24 08:00 O2 Del Method Nasal Cannula 10/20/24 08:00 O2 Flow Rate 4 10/20/24 08:00 Oxygen Flow Rate 2 10/18/24 12:52 BMI result Body Mass Index 46.6 General: AO X 3, no acute distress Resp: cta bilateral, no accessory muscles used CVS: S1,S2,RRR, 3 plus edema bilateral GI: soft, non tender, non distended Neuro: motor grossly intact, alert Psych: appropriate affect, appropriate insight Objective Data Active Medications Acetaminophen (Acetaminophen 325 Mg Tablet) 650 mg PO Q6H PRN PRN Reason: Pain, Mild (Pain Scale 1-3), fever or headache Last Admin: 10/19/24 04:01 Dose: 650 mg Documented By: ROSALEE Acetazolamide (Acetazolamide Sodium 500 Mg Vial) 250 mg IVPUSH TID [facility] Stop: 10/22/24 06:00 Albuterol Sulfate (Albuterol Sulfate (0.083%) 2.5 Mg/3 Ml Vial.Neb) 2.5 mg INHALE Q4H PRN PRN Reason: Shortness of Breath/Wheezing Albuterol/Ipratropium (Albuterol/Iprat 2.5/0.5mg 3 Ml Ampul.Neb) 3 ml INHALE RQ6H WHILE AWAKE [facility] Last Admin: 10/20/24 07:56 Dose: 3 ml Documented By: NELLA Apixaban (Apixaban 5 Mg Tablet) 5 mg PO BID [facility] Last Admin: 10/20/24 08:27 Dose: 5 mg Documented By: MARIN Benzonatate (Benzonatate 100 Mg Capsule) 100 mg PO TID PRN PRN Reason: Cough Calcium Carbonate (Calcium Carbonate 750 Mg Tab.Chew) 750 mg PO Q4H PRN PRN Reason: Heartburn Diltiazem HCl (Diltiazem Hcl Cd 240 Mg Cap.Er.Deg) 240 mg PO BEDTIME [facility]; Protocol Last Admin: 10/19/24 19:46 Dose: 240 mg Documented By: ELISEO Dronedarone (Dronedarone Hcl 400 Mg Tablet) 400 mg PO BID [facility] Last Admin: 10/20/24 08:27 Dose: 400 mg Documented By: MARIN Magnesium Hydroxide (Milk Of Magnesia 30 Ml Oral.Susp) 30 ml PO DAILY PRN PRN Reason: Constipation Melatonin (Melatonin 3 Mg Tablet) 6 mg PO BEDTIME PRN PRN Reason: Insomnia Metoprolol Succinate (Metoprolol Succinate Er 100 Mg Tab.Er.24h) 100 mg PO BEDTIME [facility]; Protocol Last Admin: 10/19/24 19:46 Dose: 100 mg Documented By: ELISEO Omeprazole (Omeprazole 20 Mg Capsule.Dr) 20 mg PO DAILY@0630 [facility] Last Admin: 10/20/24 06:30 Dose: 20 mg Documented By: ELISEO Ondansetron HCl (Ondansetron Hcl 4 Mg/2 Ml Vial) 4 mg IVPUSH Q8H PRN PRN Reason: Nausea and Vomiting Sodium Chloride (0.9 % Sodium Chloride Flush 3 Ml Syringe) 3 ml IVFLUSH QSHIFT [facility] Last Admin: 10/20/24 08:27 Dose: 3 ml Documented By: MARIN Labs 10/18/24 13:19 10/20/24 08:39 Labs: Laboratory Results - last 24 hr 10/20/24 08:39 Anion Gap 19 Estim Creat Clear Calc 117.0 Estimated GFR > 60 Random Glucose 123 H Calcium 9.9 Assessment and Plan (1) CHF (congestive heart failure): Status: Acute Plan 63M PMH morbid obesity, COPD with p.r.n. O2, hyperthyroid, paroxysmal atrial fibrillation, DEVIN on BiPAP presented with shortness of breaths Acute on chronic hypoxic respiratory failure secondary to acute on chronic diastolic CHF Will change to IV Diamox Cardio eval Check echo Wean O2 as tolerated COPD Continue inhalers prn DEVIN BiPAP Morbid obesity Weight loss recommended Hyperthyroid Continue methimazole Paroxysmal atrial fibrillation Continue metoprolol, Cardizem, Multaq, Eliquis DVT prophylaxis with Eliquis Full Code reason for continued hospitalization: Ongoing IV diuresis Quality Stroke Does the patient have a stroke diagnosis?: No VTE Prior VTE?: Yes VTE Risk Level:: Medical - moderate - high VTE Device Contraindication: Treatment Not Indicated VTE Drug Contraindication: N/A - Med Ordered
[2024-10-20] MEDS: acetaZOLAMIDE sodium 500 MG VIAL 250 MG IVPUSH ×2 (15:42→20:20)
[2024-10-20] MEDS: Metoprolol Succinate ER 100 MG TAB.ER.24H PO (20:19)
[2024-10-20] MEDS: dilTIAZem HCL CD 240 MG CAP.ER.DEG PO (20:19)
[2024-10-21] VITALS (11 sets, daily range): BP systolic 118–142; BP diastolic 71–82; PULSE 74–92; RESP 16–22; TEMP 36.6–37.6; O2SAT 88–94
[2024-10-21] MEDS: Omeprazole 20 MG CAPSULE.DR PO (05:48)
[2024-10-21 06:56] LABS: Venous Blood Gas Refer to POC result
[2024-10-21 06:59] LABS: VBG Base Excess 18.7 mmol/L; VBG HCO3 48 mmol/L (22-26); VBG pCO2 71 mmHg; VBG pH 7.43 (7.32-7.43); VBG pO2 51 mmHg
[2024-10-21 07:02] LABS: Hematocrit 48.5 % (42.0-52.0); Hemoglobin 15.3 g/dl (14.0-18.0); Mean Corpuscular HGB Conc 31.5 g/dl (31.0-36.0); Mean Corpuscular Hemoglobin 26.8 pg (27.0-33.0); Mean Corpuscular Volume 85.1 fL (80.0-98.0); Mean Platelet Volume 9.9 fL (9.4-12.4); Platelet Count 307 X10*3/uL (160-400); Red Cell Distribution Width 16.6 % (11.0-16.0); White Blood Count 11.1 X10*3/uL (4.8-10.8)
[2024-10-21 07:27] LABS: Anion Gap 19 (12-20); Blood Urea Nitrogen 24 mg/dL (9-16); Calcium 10.1 mg/dL (8.4-10.2); Carbon Dioxide 37 mmol/L (22-29); Chloride 85 mmol/L (96-108); Creatinine Clr Calc Pharmacy 112.4; Estimated Glomerular Filt Rate > 60; Glucose Fasting 111 mg/dL (60-99); Magnesium 2.4 mg/dL (1.6-2.6); Potassium 3.8 mmol/L (3.3-5.1); Sodium 137 mmol/L (135-145)
[2024-10-21] MEDS: Albuterol/Iprat 2.5/0.5MG 3 ML AMPUL.NEB INHALE ×3 (07:53→19:01)
--- NOTE | 2024-10-21 10:02 | PM.CNCAR ---
History of Present Illness History of Present Illness Date of Service: 10/21/24 Requesting physician: Cam Powell Consult reason: other (Hypoxemic respiratory failure) Chief complaint: CHF exacerbation Narrative: I was consulted to see Mario in cardiology consultation today as he remains hypoxic and requiring oxygen despite diuresis he has prior history of diastolic heart failure, COPD with intermittent oxygen requirement, morbid obesity, obesity hypoventilation syndrome, severe sleep apnea using CPAP/BiPAP at nighttime, paroxysmal atrial fibrillation. No history of coronary artery disease or cardiomyopathy. He came to the hospital with worsening shortness of breath. Was noted to have fluid overload was diuresed and has diuresed well. Echocardiogram yesterday showed low normal LV ejection fraction with indeterminate left atrial filling pressures although not elevated, normal RV systolic pressure and normal right atrial filling pressures. This means that he has been adequately diuresed. However he requires continued oxygen therapy. He says however his shortness of breath is much improved. Denies any recurrent atrial fibrillation palpitation. Blood pressures been stable. Review of Systems Constitutional: Constitutional: Reports no additional constitutional complaints Eyes: Eyes: Reports no additional eye complaints Cardiovascular: Cardiovascular: Denies chest pain, Denies leg edema, Denies lightheadedness, Denies Loss of Consciousness, Denies palpitations and Denies dyspnea Respiratory: Respiratory: Denies dyspnea and Reports other (Need for oxygen) Genitourinary: Genitourinary: Reports no additional male genitourinary complaints Integumentary/Breasts: Skin/Breast: Reports system reviewed and no additional complaints, except as docu Neurologic: Reports system reviewed and no additional complaints, except as documented Psychiatric: Psychiatric: Reports no additional psychiatric complaints Endocrine: Endocrine: Denies palpitations [facility] Past Medical History Medical History Hypoventilation associated with obesity syndrome COPD exacerbation Hx of atrial flutter Obesity DEVIN (obstructive sleep apnea) COPD (chronic obstructive pulmonary disease) Chronic diastolic heart failure Acute on chronic diastolic (congestive) heart failure Acute exacerbation of chronic obstructive airways disease Hyperthyroidism Venous insufficiency of both lower extremities Chronic respiratory failure Hx pulmonary embolism PAF (paroxysmal atrial fibrillation) Lung mass Family History Family History Father Bone cancer Mother COPD (chronic obstructive pulmonary disease) Surgical History Surgical History H/O cardiac radiofrequency ablation Social History Social History Household Members: Spouse Household Members Other:: Housing: House Do you presently have visiting nurse or other home services: No Unable to assess alcohol history related to: Unknown Alcohol intake: current Alcohol intake frequency: holidays/special occasions only Patient Tobacco Use Status: Former Tobacco user Tobacco use type: Cigarette Cigarette Packs Per Day: 1.5 Cigarettes Per Day: 30.0 Years Smoked: 25 Smoked in Last 30 Days: No e-Cigarette/Vaping Use: Never Used Patient Interested in Nicotine Replacement: No Patient Given Instructions on How to Stop Smoking: No Second Hand Smoke Exposure: No Use of substances other than those prescribed or required for medical reasons: No Currently Displaying Signs/Symptoms of Drug Intoxication Withdrawal: No Any prior treatment program specific to substance use: No Have you been hit, kicked, punched, or otherwise hurt by someone within the past year? If so, by whom?: No Do you feel safe in your current relationship?: No Is there a partner from a previous relationship who is making you feel unsafe now?: No Are you made to feel afraid or neglected: No Advance Directives: Yes Advance Directives on File: Yes Advance Directives Date on File: 07/14/23 Do you have a plan to hurt others: No Plan Recently lost weight without trying: No Eating poorly because of decreased appetite: No Nutrition Risks: No Nutritional Risk Poor oral hygiene: No service: No Current occupational status: employed Cognitive needs: No Hearing needs: No Vision needs: Yes Meds Allergies Allergy/AdvReac Type Severity Reaction Status Date / Time No Known Allergies Allergy Verified 10/18/24 12:58 Active Medications: Current Medications Acetaminophen (Acetaminophen 325 Mg Tablet) 650 mg PO Q6H PRN PRN Reason: Pain, Mild (Pain Scale 1-3), fever or headache Last Admin: 10/19/24 04:01 Dose: 650 mg Albuterol Sulfate (Albuterol Sulfate (0.083%) 2.5 Mg/3 Ml Vial.Neb) 2.5 mg INHALE Q4H PRN PRN Reason: Shortness of Breath/Wheezing Albuterol/Ipratropium (Albuterol/Iprat 2.5/0.5mg 3 Ml Ampul.Neb) 3 ml INHALE RQ6H WHILE AWAKE [facility] Last Admin: 10/21/24 07:53 Dose: 3 ml Apixaban (Apixaban 5 Mg Tablet) 5 mg PO BID [facility] Last Admin: 10/20/24 20:19 Dose: 5 mg Benzonatate (Benzonatate 100 Mg Capsule) 100 mg PO TID PRN PRN Reason: Cough Calcium Carbonate (Calcium Carbonate 750 Mg Tab.Chew) 750 mg PO Q4H PRN PRN Reason: Heartburn Diltiazem HCl (Diltiazem Hcl Cd 240 Mg Cap.Er.Deg) 240 mg PO BEDTIME [facility]; Protocol Last Admin: 10/20/24 20:19 Dose: 240 mg Dronedarone (Dronedarone Hcl 400 Mg Tablet) 400 mg PO BID [facility] Last Admin: 10/20/24 20:19 Dose: 400 mg Magnesium Hydroxide (Milk Of Magnesia 30 Ml Oral.Susp) 30 ml PO DAILY PRN PRN Reason: Constipation Melatonin (Melatonin 3 Mg Tablet) 6 mg PO BEDTIME PRN PRN Reason: Insomnia Metoprolol Succinate (Metoprolol Succinate Er 100 Mg Tab.Er.24h) 100 mg PO BEDTIME [facility]; Protocol Last Admin: 10/20/24 20:19 Dose: 100 mg Omeprazole (Omeprazole 20 Mg Capsule.Dr) 20 mg PO DAILY@0630 [facility] Last Admin: 10/21/24 05:48 Dose: 20 mg Ondansetron HCl (Ondansetron Hcl 4 Mg/2 Ml Vial) 4 mg IVPUSH Q8H PRN PRN Reason: Nausea and Vomiting Sodium Chloride (0.9 % Sodium Chloride Flush 3 Ml Syringe) 3 ml IVFLUSH QSHIFT [facility] Last Admin: 10/20/24 20:20 Dose: 3 ml Home Medications ?Medication ?Instructions ?Recorded ?Confirmed ?Last Taken ?Type cholecalciferol (vitamin D3) 25 25 mcg PO BEDTIME 07/01/22 10/18/24 10/17/24 History mcg (1,000 unit) tablet multivitamin 1 tab PO BEDTIME 07/01/22 10/18/24 10/17/24 History acetaminophen 500 mg tablet 1,000 mg PO Q6H PRN Pain 07/08/23 10/18/24 07/08/23 History omeprazole magnesium 20 mg 20 mg PO DAILY@0630 07/08/23 10/18/24 10/18/24 History capsule,delayed release thiamine HCl (vitamin B1) 500 mg 500 mg PO BEDTIME 07/08/23 10/18/24 10/17/24 History tablet vitamin E 268 mg (400 unit) capsule 268 mg PO BEDTIME 07/08/23 10/18/24 10/17/24 History CPAP (CPAP Machine/Device) 07/21/23 10/14/24 Unknown History Oxygen Home Use 07/21/23 10/14/24 Unknown History nebulizers 07/21/23 10/14/24 Unknown History amoxicillin 500 mg capsule 500 mg PO Q8H 10/18/24 10/18/24 10/18/24 History ferrous sulfate 325 mg (65 mg 325 mg PO MOTUWETHFR@0900 10/18/24 10/18/24 10/18/24 History iron) tablet Physical Exam Vital Signs: Vital Signs: Last Vital Signs Temp 98.0 F 10/21/24 08:00 Pulse 74 10/21/24 08:00 Resp 20 10/21/24 08:00 BP 141/74 H 10/21/24 08:00 Pulse Ox 94 10/21/24 08:00 O2 Del Method Nasal Cannula 10/21/24 08:00 O2 Flow Rate 4 10/21/24 08:00 Oxygen Flow Rate 2 10/18/24 12:52 BMI result Body Mass Index 46.6 Const: General: cooperative, comfortable, no acute distress, alert and awake Nutritional Appearance: obese morbidly obese Orientation/consciousness: patient oriented x3 Limitations: no limitations HEENT: Head: Yes normocephalic and Yes atraumatic Neck: Neck: Yes trachea midline, Yes supple and Yes no JVD Resp: Effort & Inspection: normal respiratory effort Auscultation: clear to auscultation bilaterally and diminished lung sounds Cardio: Jugular venous distension: no JVD Palpation: normal PMI Rate: regular rate Rhythm: regular rhythm Heart sounds: S1 normal heart sound present, S2 normal heart sound present, no click, no gallops and no murmurs GI: Auscultation: normal bowel sounds Skin: General skin exam: no rashes or lesions noted Neuro: General: patient oriented x3 and no focal motor deficits Extrem: General: Yes no clubbing, cyanosis or edema Psych: Appearance: grossly normal Objective Labs and Meds 10/21/24 06:48 10/21/24 06:48 Lab results: Laboratory Results - last 24 hr 10/21/24 10/21/24 06:48 06:55 WBC 11.1 H RBC 5.70 D Hgb 15.3 D Hct 48.5 MCV 85.1 MCH 26.8 L MCHC 31.5 RDW 16.6 H Plt Count 307 D MPV 9.9 Absolute Nucleated RBC 0.000 Nucleated RBC % (auto) 0.0 VBG pH 7.43 VBG pCO2 71 VBG pO2 51 VBG HCO3 48 H VBG O2 Saturation 78.0 VBG Base Excess 18.7 Sodium 137 Potassium 3.8 Chloride 85 L Carbon Dioxide 37 H Anion Gap 19 BUN 24 H Creatinine 1.02 Estim Creat Clear Calc 112.4 Estimated GFR > 60 Fasting Glucose 111 H Calcium 10.1 Magnesium 2.4 Assessment and Plan (1) Acute on chronic respiratory failure with hypoxemia: Status: Acute Patient with persistent hypoxemia despite adequate diuresis. Clinically has no signs of congestive heart failure. Echocardiogram shows no significant elevation of right atrial left atrial pressures. Unlikely that his hypoxemic he was explained by congestive heart failure at this point time. He does have underlying significant pulmonary parenchymal disease as well as significant obesity hypoventilation syndrome which could by itself explain hypoxemia in the setting of respiratory muscle deconditioning. Consider noncontrast CT to evaluate for pulmonary parenchyma for atelectasis and/or other infiltrative that may explain his worsening hypoxemia. Also consider ruling out pulmonary embolism although he is on oral anticoagulation therapy likelihood is low. Consider pulmonary consultation. Continue oxygen therapy for now. Incentive spirometry should be continued. For his chronic diastolic heart failure clinically has responded well to diuretics I would switch him to Bumex 2 mg daily at home and add Jardiance 10 mg to his regimen. Continue rhythm control approach. Continue current therapy with Multaq. Will sign of the case. Will follow as outpatient. Procedures Date of Service Date of Service: 10/21/24
--- NOTE | 2024-10-21 10:25 | HO.PM.IMPN ---
Subjective Subjective Date of Service: 10/21/24 Interval History: Slowly improving every day Physical Exam Vital Signs: Vital Signs: Last Vital Signs Temp 98.0 F 10/21/24 08:00 Pulse 74 10/21/24 08:00 Resp 20 10/21/24 08:00 BP 141/74 H 10/21/24 08:00 Pulse Ox 94 10/21/24 08:00 O2 Del Method Nasal Cannula 10/21/24 08:00 O2 Flow Rate 4 10/21/24 08:00 Oxygen Flow Rate 2 10/18/24 12:52 BMI result Body Mass Index 46.6 Const: General: cooperative, comfortable, no acute distress, alert and awake Nutritional Appearance: obese morbidly obese Orientation/consciousness: patient oriented x3 Limitations: no limitations HEENT: Head: Yes normocephalic and Yes atraumatic Neck: Neck: Yes trachea midline, Yes supple and Yes no JVD Resp: Effort & Inspection: normal respiratory effort Auscultation: clear to auscultation bilaterally and diminished lung sounds Cardio: Jugular venous distension: no JVD Palpation: normal PMI Rate: regular rate Rhythm: regular rhythm Heart sounds: S1 normal heart sound present, S2 normal heart sound present, no click, no gallops and no murmurs GI: Auscultation: normal bowel sounds Skin: General skin exam: no rashes or lesions noted Neuro: General: patient oriented x3 and no focal motor deficits Extrem: General: Yes no clubbing, cyanosis or edema Psych: Appearance: grossly normal Objective Data Active Medications Acetaminophen (Acetaminophen 325 Mg Tablet) 650 mg PO Q6H PRN PRN Reason: Pain, Mild (Pain Scale 1-3), fever or headache Last Admin: 10/19/24 04:01 Dose: 650 mg Documented By: ROSALEE Albuterol Sulfate (Albuterol Sulfate (0.083%) 2.5 Mg/3 Ml Vial.Neb) 2.5 mg INHALE Q4H PRN PRN Reason: Shortness of Breath/Wheezing Albuterol/Ipratropium (Albuterol/Iprat 2.5/0.5mg 3 Ml Ampul.Neb) 3 ml INHALE RQ6H WHILE AWAKE [facility] Last Admin: 10/21/24 07:53 Dose: 3 ml Documented By: NELLA Apixaban (Apixaban 5 Mg Tablet) 5 mg PO BID [facility] Last Admin: 10/20/24 20:19 Dose: 5 mg Documented By: CYN Benzonatate (Benzonatate 100 Mg Capsule) 100 mg PO TID PRN PRN Reason: Cough Calcium Carbonate (Calcium Carbonate 750 Mg Tab.Chew) 750 mg PO Q4H PRN PRN Reason: Heartburn Diltiazem HCl (Diltiazem Hcl Cd 240 Mg Cap.Er.Deg) 240 mg PO BEDTIME [facility]; Protocol Last Admin: 10/20/24 20:19 Dose: 240 mg Documented By: CYN Dronedarone (Dronedarone Hcl 400 Mg Tablet) 400 mg PO BID [facility] Last Admin: 10/20/24 20:19 Dose: 400 mg Documented By: CYN Magnesium Hydroxide (Milk Of Magnesia 30 Ml Oral.Susp) 30 ml PO DAILY PRN PRN Reason: Constipation Melatonin (Melatonin 3 Mg Tablet) 6 mg PO BEDTIME PRN PRN Reason: Insomnia Metoprolol Succinate (Metoprolol Succinate Er 100 Mg Tab.Er.24h) 100 mg PO BEDTIME [facility]; Protocol Last Admin: 10/20/24 20:19 Dose: 100 mg Documented By: CYN Omeprazole (Omeprazole 20 Mg Capsule.Dr) 20 mg PO DAILY@0630 [facility] Last Admin: 10/21/24 05:48 Dose: 20 mg Documented By: CYN Ondansetron HCl (Ondansetron Hcl 4 Mg/2 Ml Vial) 4 mg IVPUSH Q8H PRN PRN Reason: Nausea and Vomiting Sodium Chloride (0.9 % Sodium Chloride Flush 3 Ml Syringe) 3 ml IVFLUSH QSHIFT [facility] Last Admin: 10/20/24 20:20 Dose: 3 ml Documented By: CYN Labs 10/21/24 06:48 10/21/24 06:48 Labs: Laboratory Results - last 24 hr 10/21/24 10/21/24 06:48 06:55 MCV 85.1 MCH 26.8 L MCHC 31.5 RDW 16.6 H Plt Count 307 D MPV 9.9 Absolute Nucleated RBC 0.000 Nucleated RBC % (auto) 0.0 VBG pH 7.43 VBG pCO2 71 VBG pO2 51 VBG HCO3 48 H VBG O2 Saturation 78.0 VBG Base Excess 18.7 Anion Gap 19 Estim Creat Clear Calc 112.4 Estimated GFR > 60 Fasting Glucose 111 H Calcium 10.1 Magnesium 2.4 Assessment and Plan (1) CHF (congestive heart failure): Status: Acute Plan 63M PMH morbid obesity, COPD with p.r.n. O2, hyperthyroid, paroxysmal atrial fibrillation, DEVIN on BiPAP presented with shortness of breaths Acute on chronic hypoxic respiratory failure secondary to acute on chronic diastolic CHF Cardio appreciated, echo with normal EF, diastolic dysfunction, IVC collapsing greater than 50% evidence for having being diuresed well, we will hold on further IV diuretics Wean O2 as tolerated Continues to be hypoxic, we will check CTA rule out PE, better eval lung parenchymal COPD Continue inhalers prn DEVIN BiPAP Morbid obesity Weight loss recommended Hyperthyroid Continue methimazole Paroxysmal atrial fibrillation Continue metoprolol, Cardizem, Multaq, Eliquis DVT prophylaxis with Eliquis Full Code reason for continued hospitalization: Still significantly hypoxic Quality Stroke Does the patient have a stroke diagnosis?: No VTE Prior VTE?: Yes VTE Risk Level:: Medical - moderate - high VTE Device Contraindication: Treatment Not Indicated VTE Drug Contraindication: N/A - Med Ordered
[2024-10-21] MEDS: 0.9 % Sodium Chloride Flush 3 ML SYRINGE IVFLUSH ×3 (10:46→22:32)
[2024-10-21] MEDS: Dronedarone HCl 400 MG TABLET PO ×2 (10:46→22:31)
[2024-10-21] MEDS: Apixaban 5 MG TABLET PO ×2 (10:46→22:32)
[2024-10-21] MEDS: iohexoL 350 MG/ML 75 ML INFUS..BTL 65 ML IV (12:04)
[2024-10-21] MEDS: dilTIAZem HCL CD 240 MG CAP.ER.DEG PO (22:31)
[2024-10-21] MEDS: Acetaminophen 325 MG TABLET 650 MG PO (22:31)
[2024-10-21] MEDS: Metoprolol Succinate ER 100 MG TAB.ER.24H PO (22:32)
[2024-10-21] MEDS: Albuterol Sulfate (0.083%) 2.5 MG/3 ML VIAL.NEB INHALE (23:41)
[2024-10-22] VITALS (12 sets, daily range): BP systolic 103–131; BP diastolic 63–76; PULSE 68–88; RESP 16–22; TEMP 36.4–36.9; O2SAT 3–95
[2024-10-22] MEDS: Omeprazole 20 MG CAPSULE.DR PO (06:27)
[2024-10-22 07:28] LABS: Hematocrit 47.3 % (42.0-52.0); Mean Corpuscular HGB Conc 31.7 g/dl (31.0-36.0); Mean Corpuscular Hemoglobin 26.8 pg (27.0-33.0); Mean Corpuscular Volume 84.5 fL (80.0-98.0); Mean Platelet Volume 10.2 fL (9.4-12.4); Platelet Count 317 X10*3/uL (160-400); Red Cell Distribution Width 16.3 % (11.0-16.0); White Blood Count 12.2 X10*3/uL (4.8-10.8)
[2024-10-22] MEDS: Albuterol/Iprat 2.5/0.5MG 3 ML AMPUL.NEB INHALE ×3 (07:34→20:31)
[2024-10-22 08:05] LABS: Anion Gap 14 (12-20); Blood Urea Nitrogen 27 mg/dL (9-16); Calcium 8.9 mg/dL (8.4-10.2); Carbon Dioxide 35 mmol/L (22-29); Chloride 89 mmol/L (96-108); Creatinine Clr Calc Pharmacy 115.8; Estimated Glomerular Filt Rate > 60; Glucose Fasting 105 mg/dL (60-99); Magnesium 2.8 mg/dL (1.6-2.6); Potassium 3.3 mmol/L (3.3-5.1); Sodium 135 mmol/L (135-145)
[2024-10-22] MEDS: Dronedarone HCl 400 MG TABLET PO ×2 (09:39→20:37)
[2024-10-22] MEDS: Acetaminophen 325 MG TABLET 650 MG PO ×2 (09:39→20:42)
[2024-10-22] MEDS: Apixaban 5 MG TABLET PO ×2 (09:39→20:37)
[2024-10-22] MEDS: 0.9 % Sodium Chloride Flush 3 ML SYRINGE IVFLUSH ×3 (09:46→20:37)
--- NOTE | 2024-10-22 10:41 | P.PNIM_ITS ---
Subjective Subjective Date of Service: 10/22/24 Interval History: hypoxic overnight needed to switch to hospital bipap with higher pressures Physical Exam 2 Vital Signs: Vital Signs: Last Vital Signs Temp 97.8 F 10/22/24 07:52 Pulse 68 10/22/24 07:52 Resp 20 10/22/24 07:52 BP 127/76 10/22/24 07:52 Pulse Ox 94 10/22/24 07:52 O2 Del Method Nasal Cannula 10/22/24 07:52 O2 Flow Rate 4 10/22/24 07:52 Oxygen Flow Rate 2 10/18/24 12:52 BMI result Body Mass Index 46.6 Const: General: cooperative, comfortable, no acute distress, alert and awake Nutritional Appearance: obese morbidly obese Orientation/consciousness: p atient oriented x3 Limitations: no limitations HEENT: Head: Yes normocephalic and Yes atraumatic Neck: Neck: Yes trachea midline, Yes supple and Yes no JVD Resp: Effort & Inspection: normal respiratory effort Auscultation: clear to auscultation bilaterally and diminished lung sounds Cardio: Jugular venous distension: no JVD Palpation: normal PMI Rate: r egular rate Rhythm: regular rhythm Heart sounds: S1 normal heart sound present, S2 normal heart sound present, no click, no gallops and no murmurs GI: Auscultation: normal bowel sounds Skin: General skin exam: no rashes or lesions noted Neuro: General: patient oriented x3 and no focal motor deficits Extrem: General: Yes no clubbing, cyanosis or edema Psych: Appearance: grossly normal Objective Data Active Medications Acetaminophen (Acetaminophen 325 Mg Tablet) 650 mg PO Q6H PRN PRN Reason: Pain, Mild (Pain Scale 1-3), fever or headache Last Admin: 10/22/24 09:39 Dose: 650 mg Documented By: JD Albuterol Sulfate (Albuterol Sulfate (0.083%) 2.5 Mg/3 Ml Vial.Neb) 2.5 mg INHALE Q4H PRN PRN Reason: Shortness of Breath/Wheezing Last Admin: 10/21/24 23:41 Dose: 2.5 mg Documented By: CASH Albuterol/Ipratropium (Albuterol/Iprat 2.5/0.5mg 3 Ml Ampul.Neb) 3 ml INHALE RQ6H WHILE AWAKE [facility] Last Admin: 10/22/24 07:34 Dose: 3 ml Documented By: GONZALO Apixaban (Apixaban 5 Mg Tablet) 5 mg PO BID [facility] Last Admin: 10/22/24 09:39 Dose: 5 mg Documented By: JD Benzonatate (Benzonatate 100 Mg Capsule) 100 mg PO TID PRN PRN Reason: Cough Calcium Carbonate (Calcium Carbonate 750 Mg Tab.Chew) 750 mg PO Q4H PRN PRN Reason: Heartburn Diltiazem HCl (Diltiazem Hcl Cd 240 Mg Cap.Er.Deg) 240 mg PO BEDTIME [facility]; Protocol Last Admin: 10/21/24 22:31 Dose: 240 mg Documented By: LO Dronedarone (Dronedarone Hcl 400 Mg Tablet) 400 mg PO BID [facility] Last Admin: 10/22/24 09:39 Dose: 400 mg Documented By: JD Magnesium Hydroxide (Milk Of Magnesia 30 Ml Oral.Susp) 30 ml PO DAILY PRN PRN Reason: Constipation Melatonin (Melatonin 3 Mg Tablet) 6 mg PO BEDTIME PRN PRN Reason: Insomnia Metoprolol Succinate (Metoprolol Succinate Er 100 Mg Tab.Er.24h) 100 mg PO BEDTIME [facility]; Protocol Last Admin: 10/21/24 22:32 Dose: 100 mg Documented By: LO Omeprazole (Omeprazole 20 Mg Capsule.Dr) 20 mg PO DAILY@0630 [facility] Last Admin: 10/22/24 06:27 Dose: 20 mg Documented By: LO Ondansetron HCl (Ondansetron Hcl 4 Mg/2 Ml Vial) 4 mg IVPUSH Q8H PRN PRN Reason: Nausea and Vomiting Sodium Chloride (0.9 % Sodium Chloride Flush 3 Ml Syringe) 3 ml IVFLUSH QSHIFT [facility] Last Admin: 10/22/24 09:46 Dose: 3 ml Documented By: JD Labs 10/22/24 06:49 10/22/24 06:49 Labs: Laboratory Results - last 24 hr 10/22/24 06:49 MCV 84.5 MCH 26.8 L MCHC 31.7 RDW 16.3 H Plt Count 317 MPV 10.2 Absolute Nucleated RBC 0.000 Nucleated RBC % (auto) 0.0 Anion Gap 14 Estim Creat Clear Calc 115.8 Estimated GFR > 60 Fasting Glucose 105 H Calcium 8.9 D Magnesium 2.8 H Assessment and Plan (1) CHF (congestive heart failure): Status: Acute Plan 63M PMH morbid obesity, COPD with p.r.n. O2, hyperthyroid, paroxysmal atrial fibrillation, DEVIN on BiPAP presented with shortness of breaths Acute on chronic hypoxic respiratory failure secondary to acute on chronic diastolic CHF Cardio appreciated, echo with normal EF, diastolic dysfunction, IVC collapsing greater than 50% evidence for having being diuresed well, we will hold on further IV diuretics Wean O2 as tolerated Continues to be hypoxic, negative CTA pulm eval COPD Continue inhalers prn DEVIN BiPAP Morbid obesity Weight loss recommended Hyperthyroid Continue methimazole Paroxysmal atrial fibrillation Continue metoprolol, Cardizem, Multaq, Eliquis DVT prophylaxis with Eliquis Full Code reason for continued hospitalization: Still significantly hypoxic Quality Stroke Does the patient have a stroke diagnosis?: No VTE Prior VTE?: Yes VTE Risk Level:: Medical - moderate - high VTE Device Contraindication: Treatment Not Indicated VTE Drug Contraindication: N/A - Med Ordered
[2024-10-22] MEDS: Potassium Chloride ER 20 MEQ TAB.ER.PRT 40 MEQ PO (11:48)
--- NOTE | 2024-10-22 12:44 | PM.CNPUL ---
History of Present Illness History of Present Illness Consult date: 10/22/24 Chief complaint: CHF exacerbation Narrative: This is an inpatient pulmonary consultation. The patient is a 63 years old male with PMH of COPD, Afib on Eliquis, DEVIN on bipap among others who presented with worsening dyspnea on exertion and increase O2 supplement. The patient reports worsening dyspnea with minimal exertion and increase O2 requirements to 6-7L. No chest pain, palpitations, SOB, nausea, vomiting, diarrhea or urinary symptoms. The patient uses BiPap at bedtime. he works 40 hours a week and uses O2 usually with exertion but at rest he can sat 90% on RA. In ED found hypoxic to 85% on 6L. BNP elevated. CXR suggestive of pulmonary edema. The patient is admitted to the hospital and diuresed. No significant improvement though on the hypoxia. He did have a CTA that I personally reviewed. No evidence of any thromboembolic disease. Although he did have mosaic pattern and decreased lung volumes. Likely explain the degree of hypoxia. Overnight the patient had his astral AVAPS on he was having issues with hypoxia. Therefore he was switched over to a BiPAP /. Seems to be doing better with that. Therefore adjusted the AVAPS to higher pressure. He will try during the day to see if this is effective. In the meantime will treat him with anti-inflammatories to treat him for pneumonitis does likely contributing to his hypoxia. Review of Systems Constitutional: Constitutional: Reports no additional constitutional complaints Eyes: Eyes: Reports no additional eye complaints Cardiovascular: Cardiovascular: Denies chest pain, Denies leg edema, Denies lightheadedness, Denies Loss of Consciousness, Denies palpitations and Denies dyspnea Respiratory: Respiratory: Denies dyspnea and Reports other (Need for oxygen) Genitourinary: Genitourinary: Reports no additional male genitourinary complaints Integumentary/Breasts: Skin/Breast: Reports system reviewed and no additional complaints, except as docu Neurologic: Reports system reviewed and no additional complaints, except as documented Psychiatric: Psychiatric: Reports no additional psychiatric complaints Endocrine: Endocrine: Denies palpitations PMFSH Past Medical History Medical History Hypoventilation associated with obesity syndrome COPD exacerbation Hx of atrial flutter Obesity DEVIN (obstructive sleep apnea) COPD (chronic obstructive pulmonary disease) Chronic diastolic heart failure Acute on chronic diastolic (congestive) heart failure Acute exacerbation of chronic obstructive airways disease Hyperthyroidism Venous insufficiency of both lower extremities Chronic respiratory failure Hx pulmonary embolism PAF (paroxysmal atrial fibrillation) Lung mass Family History Family History Father Bone cancer Mother COPD (chronic obstructive pulmonary disease) Surgical History Surgical History H/O cardiac radiofrequency ablation Social History Social History Household Members: Spouse Household Members Other:: Housing: House Do you presently have visiting nurse or other home services: No Unable to assess alcohol history related to: Unknown Alcohol intake: current Alcohol intake frequency: holidays/special occasions only Patient Tobacco Use Status: Former Tobacco user Tobacco use type: Cigarette Cigarette Packs Per Day: 1.5 Cigarettes Per Day: 30.0 Years Smoked: 25 Smoked in Last 30 Days: No e-Cigarette/Vaping Use: Never Used Patient Interested in Nicotine Replacement: No Patient Given Instructions on How to Stop Smoking: No Second Hand Smoke Exposure: No Use of substances other than those prescribed or required for medical reasons: No Currently Displaying Signs/Symptoms of Drug Intoxication Withdrawal: No Any prior treatment program specific to substance use: No Have you been hit, kicked, punched, or otherwise hurt by someone within the past year? If so, by whom?: No Do you feel safe in your current relationship?: No Is there a partner from a previous relationship who is making you feel unsafe now?: No Are you made to feel afraid or neglected: No Advance Directives: Yes Advance Directives on File: Yes Advance Directives Date on File: 07/14/23 Do you have a plan to hurt others: No Plan Recently lost weight without trying: No Eating poorly because of decreased appetite: No Nutrition Risks: No Nutritional Risk Poor oral hygiene: No service: No Current occupational status: employed Cognitive needs: No Hearing needs: No Vision needs: Yes Meds Allergies Allergy/AdvReac Type Severity Reaction Status Date / Time No Known Allergies Allergy Verified 10/18/24 12:58 Active Medications: Current Medications Acetaminophen (Acetaminophen 325 Mg Tablet) 650 mg PO Q6H PRN PRN Reason: Pain, Mild (Pain Scale 1-3), fever or headache Last Admin: 10/22/24 09:39 Dose: 650 mg Albuterol Sulfate (Albuterol Sulfate (0.083%) 2.5 Mg/3 Ml Vial.Neb) 2.5 mg INHALE Q4H PRN PRN Reason: Shortness of Breath/Wheezing Last Admin: 10/21/24 23:41 Dose: 2.5 mg Albuterol/Ipratropium (Albuterol/Iprat 2.5/0.5mg 3 Ml Ampul.Neb) 3 ml INHALE RQ6H WHILE AWAKE [facility] Last Admin: 10/22/24 07:34 Dose: 3 ml Apixaban (Apixaban 5 Mg Tablet) 5 mg PO BID [facility] Last Admin: 10/22/24 09:39 Dose: 5 mg Benzonatate (Benzonatate 100 Mg Capsule) 100 mg PO TID PRN PRN Reason: Cough Calcium Carbonate (Calcium Carbonate 750 Mg Tab.Chew) 750 mg PO Q4H PRN PRN Reason: Heartburn Diltiazem HCl (Diltiazem Hcl Cd 240 Mg Cap.Er.Deg) 240 mg PO BEDTIME [facility]; Protocol Last Admin: 10/21/24 22:31 Dose: 240 mg Dronedarone (Dronedarone Hcl 400 Mg Tablet) 400 mg PO BID [facility] Last Admin: 10/22/24 09:39 Dose: 400 mg Magnesium Hydroxide (Milk Of Magnesia 30 Ml Oral.Susp) 30 ml PO DAILY PRN PRN Reason: Constipation Melatonin (Melatonin 3 Mg Tablet) 6 mg PO BEDTIME PRN PRN Reason: Insomnia Methylprednisolone Sodium Succinate (Methylprednisolone Sod Succ 125 Mg/2 Ml Vial) 60 mg IVPUSH Q8H [facility] Metoprolol Succinate (Metoprolol Succinate Er 100 Mg Tab.Er.24h) 100 mg PO BEDTIME [facility]; Protocol Last Admin: 10/21/24 22:32 Dose: 100 mg Omeprazole (Omeprazole 20 Mg Capsule.Dr) 20 mg PO DAILY@0630 [facility] Last Admin: 10/22/24 06:27 Dose: 20 mg Ondansetron HCl (Ondansetron Hcl 4 Mg/2 Ml Vial) 4 mg IVPUSH Q8H PRN PRN Reason: Nausea and Vomiting Sodium Chloride (0.9 % Sodium Chloride Flush 3 Ml Syringe) 3 ml IVFLUSH QSHIFT [facility] Last Admin: 10/22/24 09:46 Dose: 3 ml Home Medications ?Medication ?Instructions ?Recorded ?Confirmed ?Last Taken ?Type cholecalciferol (vitamin D3) 25 25 mcg PO BEDTIME 07/01/22 10/18/24 10/17/24 History mcg (1,000 unit) tablet multivitamin 1 tab PO BEDTIME 07/01/22 10/18/24 10/17/24 History acetaminophen 500 mg tablet 1,000 mg PO Q6H PRN Pain 07/08/23 10/18/24 07/08/23 History omeprazole magnesium 20 mg 20 mg PO DAILY@0630 07/08/23 10/18/24 10/18/24 History capsule,delayed release thiamine HCl (vitamin B1) 500 mg 500 mg PO BEDTIME 07/08/23 10/18/24 10/17/24 History tablet vitamin E 268 mg (400 unit) capsule 268 mg PO BEDTIME 07/08/23 10/18/24 10/17/24 History CPAP (CPAP Machine/Device) 07/21/23 10/14/24 Unknown History Oxygen Home Use 07/21/23 10/14/24 Unknown History nebulizers 07/21/23 10/14/24 Unknown History amoxicillin 500 mg capsule 500 mg PO Q8H 10/18/24 10/18/24 10/18/24 History ferrous sulfate 325 mg (65 mg 325 mg PO MOTUWETHFR@0900 10/18/24 10/18/24 10/18/24 History iron) tablet Physical Exam Vital Signs: Vital Signs: Last Vital Signs Temp 97.6 F 10/22/24 11:04 Pulse 68 10/22/24 11:04 Resp 20 10/22/24 11:04 BP 103/70 10/22/24 11:04 Pulse Ox 95 10/22/24 11:04 O2 Del Method Nasal Cannula 10/22/24 11:04 O2 Flow Rate 3 10/22/24 11:04 Oxygen Flow Rate 2 10/18/24 12:52 BMI result Body Mass Index 46.6 Const: General: cooperative, comfortable, no acute distress, alert and awake Nutritional Appearance: obese morbidly obese Orientation/consciousness: patient oriented x3 Limitations: no limitations HEENT: Head: Yes normocephalic and Yes atraumatic Neck: Neck: Yes trachea midline, Yes supple and Yes no JVD Resp: Effort & Inspection: normal respiratory effort Auscultation: clear to auscultation bilaterally and diminished lung sounds Cardio: Jugular venous distension: no JVD Palpation: normal PMI Rate: regular rate Rhythm: regular rhythm Heart sounds: S1 normal heart sound present, S2 normal heart sound present, no click, no gallops and no murmurs GI: Auscultation: normal bowel sounds Skin: General skin exam: no rashes or lesions noted Neuro: General: patient oriented x3 and no focal motor deficits Extrem: General: Yes no clubbing, cyanosis or edema Psych: Appearance: grossly normal Results Laboratory Findings 10/22/24 06:49 10/22/24 06:49 Abnormal lab findings: Abnormal Labs 10/18/24 10/19/24 10/20/24 13:19 08:13 08:39 WBC 11.7 H Hgb 12.6 L Hct 41.2 L MCH 26.9 L MCHC 30.6 L RDW 17.2 H Neut % (Auto) 79.8 H Lymph % (Auto) 9.3 L Lymph # (Auto) 1.1 L Abs Immat Gran (auto) 0.05 H Absolute Neuts (auto) 9.3 H VBG HCO3 Chloride 95 L 86 L 80 L Carbon Dioxide 38 H 38 H 44 H* BUN 22 H Random Glucose 142 H 123 H Fasting Glucose Magnesium 10/21/24 10/21/24 10/22/24 06:48 06:55 06:49 WBC 11.1 H 12.2 H Hgb Hct MCH 26.8 L 26.8 L MCHC RDW 16.6 H 16.3 H Neut % (Auto) Lymph % (Auto) Lymph # (Auto) Abs Immat Gran (auto) Absolute Neuts (auto) VBG HCO3 48 H Chloride 85 L 89 L Carbon Dioxide 37 H 35 H BUN 24 H 27 H Random Glucose Fasting Glucose 111 H 105 H Magnesium 2.8 H Assessment and Plan (1) Acute on chronic respiratory failure with hypoxemia: Status: Acute (2) CHF (congestive heart failure): Qualifiers: Heart failure type: unspecified Heart failure chronicity: unspecified Qualified Code(s): I50.9 - Heart failure, unspecified Status: Acute (3) COPD (chronic obstructive pulmonary disease): Qualifiers: COPD type: chronic bronchitis Chronic bronchitis type: simple Qualified Code(s): J41.0 - Simple chronic bronchitis Status: Acute (4) Pneumonitis: Status: Acute Plan Adjusted iVAPS bloodwork ordered start solumedrol diuresis as tolerated conisder a bubble study Procedures Date of Service Date of Service: 10/22/24
[2024-10-22] MEDS: methylPREDNISolone Sod Succ 125 MG/2 ML VIAL 60 MG IVPUSH ×2 (14:05→20:37)
--- NOTE | 2024-10-22 14:14 | MHC.CM.PN ---
Per MD rounds no discharge today, pt hypoxic. DP Home self care with resumption of home oxygen([facility]). Patient will provide transportation home.
[2024-10-22 15:25] LABS: Erythrocyte Sedimentation Rate 25 MM/HR (0-15)
[2024-10-22] MEDS: dilTIAZem HCL CD 240 MG CAP.ER.DEG PO (20:37)
[2024-10-22] MEDS: Metoprolol Succinate ER 100 MG TAB.ER.24H PO (20:37)
[2024-10-23] VITALS (12 sets, daily range): BP systolic 94–148; BP diastolic 50–71; PULSE 67–83; RESP 16–20; TEMP 36.3–37.2; O2SAT 72–97
[2024-10-23] MEDS: methylPREDNISolone Sod Succ 125 MG/2 ML VIAL 60 MG IVPUSH ×3 (05:45→20:29)
[2024-10-23] MEDS: Omeprazole 20 MG CAPSULE.DR PO (05:48)
[2024-10-23] MEDS: Dronedarone HCl 400 MG TABLET PO ×2 (07:57→20:29)
[2024-10-23] MEDS: Apixaban 5 MG TABLET PO ×2 (07:57→20:29)
[2024-10-23] MEDS: 0.9 % Sodium Chloride Flush 3 ML SYRINGE IVFLUSH ×2 (07:57→20:30)
[2024-10-23] MEDS: Albuterol/Iprat 2.5/0.5MG 3 ML AMPUL.NEB INHALE ×3 (07:57→19:40)
[2024-10-23 09:11] LABS: Hematocrit 46.6 % (42.0-52.0); Hemoglobin 14.6 g/dl (14.0-18.0); Mean Corpuscular HGB Conc 31.3 g/dl (31.0-36.0); Mean Corpuscular Hemoglobin 26.8 pg (27.0-33.0); Mean Corpuscular Volume 85.7 fL (80.0-98.0); Platelet Count 348 X10*3/uL (160-400); Red Blood Count 5.44 X10*6/uL (4.60-5.80); Red Cell Distribution Width 16.5 % (11.0-16.0)
[2024-10-23 09:26] LABS: Anion Gap 14 (12-20); Blood Urea Nitrogen 31 mg/dL (9-16); Calcium 9.8 mg/dL (8.4-10.2); Carbon Dioxide 36 mmol/L (22-29); Chloride 91 mmol/L (96-108); Estimated Glomerular Filt Rate > 60; Glucose Fasting 135 mg/dL (60-99); Potassium 4.7 mmol/L (3.3-5.1); Sodium 136 mmol/L (135-145)
--- NOTE | 2024-10-23 09:28 | P.PNIM_ITS ---
Subjective Subjective Date of Service: 10/23/24 Interval History: home ivap not working, gets hypoxic Physical Exam 2 Vital Signs: Vital Signs: Last Vital Signs Temp 98.1 F 10/23/24 08:00 Pulse 71 10/23/24 08:00 Resp 20 10/23/24 08:00 BP 122/60 10/23/24 08:00 Pulse Ox 95 10/23/24 08:00 O2 Del Method Nasal Cannula 10/23/24 08:00 O2 Flow Rate 4 10/23/24 08:00 Oxygen Flow Rate 2 10/18/24 12:52 BMI result Body Mass Index 46.6 Const: General: cooperative, comfortable, no acute distress, alert and awake Nutritional Appearance: obese morbidly obese Orientation/consciousness: p atient oriented x3 Limitations: no limitations HEENT: Head: Yes normocephalic and Yes atraumatic Neck: Neck: Yes trachea midline, Yes supple and Yes no JVD Resp: Effort & Inspection: normal respiratory effort Auscultation: clear to auscultation bilaterally and diminished lung sounds Cardio: Jugular venous distension: no JVD Palpation: normal PMI Rate: r egular rate Rhythm: regular rhythm Heart sounds: S1 normal heart sound present, S2 normal heart sound present, no click, no gallops and no murmurs GI: Auscultation: normal bowel sounds Skin: General skin exam: no rashes or lesions noted Neuro: General: patient oriented x3 and no focal motor deficits Extrem: General: Yes no clubbing, cyanosis or edema Psych: Appearance: grossly normal Objective Data Active Medications Acetaminophen (Acetaminophen 325 Mg Tablet) 650 mg PO Q6H PRN PRN Reason: Pain, Mild (Pain Scale 1-3), fever or headache Last Admin: 10/22/24 20:42 Dose: 650 mg Documented By: KOFI Albuterol Sulfate (Albuterol Sulfate (0.083%) 2.5 Mg/3 Ml Vial.Neb) 2.5 mg INHALE Q4H PRN PRN Reason: Shortness of Breath/Wheezing Last Admin: 10/21/24 23:41 Dose: 2.5 mg Documented By: CASH Albuterol/Ipratropium (Albuterol/Iprat 2.5/0.5mg 3 Ml Ampul.Neb) 3 ml INHALE RQ6H WHILE AWAKE [facility] Last Admin: 10/23/24 07:57 Dose: 3 ml Documented By: GONZALO Apixaban (Apixaban 5 Mg Tablet) 5 mg PO BID [facility] Last Admin: 10/23/24 07:57 Dose: 5 mg Documented By: MARIN Benzonatate (Benzonatate 100 Mg Capsule) 100 mg PO TID PRN PRN Reason: Cough Calcium Carbonate (Calcium Carbonate 750 Mg Tab.Chew) 750 mg PO Q4H PRN PRN Reason: Heartburn Diltiazem HCl (Diltiazem Hcl Cd 240 Mg Cap.Er.Deg) 240 mg PO BEDTIME [facility]; Protocol Last Admin: 10/22/24 20:37 Dose: 240 mg Documented By: KOFI Dronedarone (Dronedarone Hcl 400 Mg Tablet) 400 mg PO BID [facility] Last Admin: 10/23/24 07:57 Dose: 400 mg Documented By: MARIN Magnesium Hydroxide (Milk Of Magnesia 30 Ml Oral.Susp) 30 ml PO DAILY PRN PRN Reason: Constipation Melatonin (Melatonin 3 Mg Tablet) 6 mg PO BEDTIME PRN PRN Reason: Insomnia Methylprednisolone Sodium Succinate (Methylprednisolone Sod Succ 125 Mg/2 Ml Vial) 60 mg IVPUSH Q8H [facility] Last Admin: 10/23/24 05:45 Dose: 60 mg Documented By: KOFI Metoprolol Succinate (Metoprolol Succinate Er 100 Mg Tab.Er.24h) 100 mg PO BEDTIME [facility]; Protocol Last Admin: 10/22/24 20:37 Dose: 100 mg Documented By: KOFI Omeprazole (Omeprazole 20 Mg Capsule.) 20 mg PO DAILY@0630 [facility] Last Admin: 10/23/24 05:48 Dose: 20 mg Documented By: KOFI Ondansetron HCl (Ondansetron Hcl 4 Mg/2 Ml Vial) 4 mg IVPUSH Q8H PRN PRN Reason: Nausea and Vomiting Sodium Chloride (0.9 % Sodium Chloride Flush 3 Ml Syringe) 3 ml IVFLUSH QSHIFT [facility] Last Admin: 10/23/24 07:57 Dose: 3 ml Documented By: MARIN Labs 10/23/24 08:38 10/23/24 08:38 Labs: Laboratory Results - last 24 hr 11/22/24 11/23/24 14:33 08:38 MCV 85.7 MCH 26.8 L MCHC 31.3 RDW 16.5 H Plt Count 348 MPV 10.0 Absolute Nucleated RBC 0.000 Nucleated RBC % (auto) 0.0 ESR 25 H Anion Gap 14 Estim Creat Clear Calc 126.0 Estimated GFR > 60 Fasting Glucose 135 H Calcium 9.8 D Assessment and Plan (1) CHF (congestive heart failure): Status: Acute Plan 63M PMH morbid obesity, COPD with p.r.n. O2, hyperthyroid, paroxysmal atrial fibrillation, DEVIN on BiPAP presented with shortness of breaths Acute on chronic hypoxic respiratory failure secondary to acute on chronic diastolic CHF Cardio appreciated, echo with normal EF, diastolic dysfunction, IVC collapsing greater than 50% evidence for having being diuresed well, we will hold on further IV diuretics Wean O2 as tolerated Continues to be hypoxic above baseline pulm appreciated - started on systemic steroids, wean o2, follow up hypersensitivity studies negative CTA COPD Continue inhalers prn DEVIN home ivaps malfunctions, follow up pulm Morbid obesity Weight loss recommended Hyperthyroid Continue methimazole Paroxysmal atrial fibrillation Continue metoprolol, Cardizem, Multaq, Eliquis DVT prophylaxis with Eliquis Full Code reason for continued hospitalization: Still significantly hypoxic Quality Stroke Does the patient have a stroke diagnosis?: No VTE Prior VTE?: Yes VTE Risk Level:: Medical - moderate - high VTE Device Contraindication: Treatment Not Indicated VTE Drug Contraindication: N/A - Med Ordered
--- NOTE | 2024-10-23 12:45 | P.PNPL_ITS ---
Subjective Subjective Date of Service: 10/23/24 Interval history: The patient was seen on exam. Continue to adjust his ivaps. He is still desaturating last night. Therefore increase the pressure significantly on the eyebrow. He is going to try to use it. Currently on 2 L maintaining a pulse ox 90-92%. When he lays down in the bed the patient does have increased pressure requirement because of the abdominal position and body habitus. He also started on Solu-Medrol for what appeared to be some degree of mosaic pattern or pneumonitis on the CT scan the may have been small airways disease. Objective Data Labs 10/23/24 08:38 10/23/24 08:38 Labs: Laboratory Results - last 24 hr 10/22/24 10/23/24 14:33 08:38 WBC 14.0 H RBC 5.44 Hgb 14.6 Hct 46.6 MCV 85.7 MCH 26.8 L MCHC 31.3 RDW 16.5 H Plt Count 348 MPV 10.0 Absolute Nucleated RBC 0.000 Nucleated RBC % (auto) 0.0 ESR 25 H Sodium 136 Potassium 4.7 D Chloride 91 L Carbon Dioxide 36 H Anion Gap 14 BUN 31 H Creatinine 0.91 Estim Creat Clear Calc 126.0 Estimated GFR > 60 Fasting Glucose 135 H Calcium 9.8 D Review of Systems Constitutional: Reports no additional constitutional complaints Eyes: Reports no additional eye complaints Cardiovascular: Denies chest pain, Denies leg edema, Denies lightheadedness, Denies Loss of Consciousness, Denies palpitations and Denies dyspnea Respiratory: Denies dyspnea and Reports other (Need for oxygen) Genitourinary: Reports no additional male genitourinary complaints Skin/Breast: Reports system reviewed and no additional complaints, except as docu Reports system reviewed and no additional complaints, except as documented Psychiatric: Reports no additional psychiatric complaints Endocrine: Denies palpitations Physical Exam 2 Vital Signs: Vital Signs: Last Vital Signs Temp 97.6 F 10/23/24 12:00 Pulse 71 10/23/24 12:00 Resp 20 10/23/24 12:00 BP 117/70 10/23/24 12:00 Pulse Ox 90 L 10/23/24 12:00 O2 Del Method BiPAP 10/23/24 12:00 O2 Flow Rate 4 10/23/24 08:00 Oxygen Flow Rate 2 10/18/24 12:52 BMI result Body Mass Index 46.6 Const: General: cooperative, comfortable, no acute distress, alert and awake Nutritional Appearance: obese morbidly obese Orientation/consciousness: p atient oriented x3 Limitations: no limitations HEENT: Head: Yes normocephalic and Yes atraumatic Neck: Neck: Yes trachea midline, Yes supple and Yes no JVD Resp: Effort & Inspection: normal respiratory effort Auscultation: clear to auscultation bilaterally and diminished lung sounds Cardio: Jugular venous distension: no JVD Palpation: normal PMI Rate: r egular rate Rhythm: regular rhythm Heart sounds: S1 normal heart sound present, S2 normal heart sound present, no click, no gallops and no murmurs GI: Auscultation: normal bowel sounds Skin: General skin exam: no rashes or lesions noted Neuro: General: patient oriented x3 and no focal motor deficits Extrem: General: Yes no clubbing, cyanosis or edema Psych: Appearance: grossly normal Procedures Date of Service Date of Service: 10/23/24 Assessment and Plan Assessment and plan (1) Pneumonitis: Status: Acute (2) Acute on chronic respiratory failure with hypoxemia: Status: Acute (3) COPD (chronic obstructive pulmonary disease): Status: Acute (4) Hypoventilation associated with obesity syndrome: Problem details: On CPAP Status: Acute Plan Further adjusted his vent, seems to be tolerating well: Increase the minimum pressure to 10 and maximum pressure 22. EPAP fixed that 8, increased respiratory rate from 15-17, increase his minute ventilation go to 7.5 L per minute Request an ABG today Continue Solu-Medrol for now Titrate oxygen to maintain a pulse ox above 87%- 96% Diuresis as tolerated Time Spent With Patient Time: Total time managing care of this patient today ____ minutes. Progress Note: Quality Stroke Does the patient have a stroke diagnosis?: No
[2024-10-23 16:19] LABS: ABG Base Excess 11.1 mmol/L; ABG HCO3 38 mmol/L (22-26); ABG pCO2 59 mmHg (32-45); ABG pH 7.42 (7.35-7.45); ABG pO2 73 mmHg (83-108)
[2024-10-23 17:49] LABS: ABG Refer to POC result
[2024-10-23] MEDS: dilTIAZem HCL CD 240 MG CAP.ER.DEG PO (20:29)
[2024-10-23] MEDS: Metoprolol Succinate ER 100 MG TAB.ER.24H PO (20:29)
[2024-10-24 04:00] VITALS: BP 117/71; PULSE 63; RESP 20; TEMP 36.8; O2SAT 95
[2024-10-24] MEDS: methylPREDNISolone Sod Succ 125 MG/2 ML VIAL 60 MG IVPUSH (04:35)
[2024-10-24] MEDS: Omeprazole 20 MG CAPSULE.DR PO (06:29)
--- NOTE | 2024-10-24 06:37 | PC.NURSE ---
pt tolerated cpap setting with minimal episodes of desatiing, pt desated to the low 80s RN to bedside pt was slouched in bed, pt repo himself in bed and sats increased.
[2024-10-24 06:49] LABS: Mean Corpuscular HGB Conc 30.4 g/dl (31.0-36.0); Mean Corpuscular Hemoglobin 26.4 pg (27.0-33.0); Mean Corpuscular Volume 86.6 fL (80.0-98.0); Mean Platelet Volume 10.3 fL (9.4-12.4); Platelet Count 362 X10*3/uL (160-400); Red Blood Count 5.31 X10*6/uL (4.60-5.80); Red Cell Distribution Width 16.7 % (11.0-16.0); White Blood Count 18.2 X10*3/uL (4.8-10.8)
[2024-10-24 07:10] LABS: Anion Gap 12 (12-20); Blood Urea Nitrogen 35 mg/dL (9-16); Calcium 9.4 mg/dL (8.4-10.2); Carbon Dioxide 37 mmol/L (22-29); Chloride 94 mmol/L (96-108); Estimated Glomerular Filt Rate > 60; Glucose Fasting 133 mg/dL (60-99); Potassium 4.5 mmol/L (3.3-5.1); Sodium 138 mmol/L (135-145)
[2024-10-24] MEDS: Albuterol/Iprat 2.5/0.5MG 3 ML AMPUL.NEB INHALE (07:52)
[2024-10-24 07:54] VITALS: PULSE 67; RESP 20; O2SAT 97
[2024-10-24 08:00] VITALS: BP 141/71; PULSE 67; RESP 20; TEMP 36.9; O2SAT 92
[2024-10-24] MEDS: Dronedarone HCl 400 MG TABLET PO (09:22)
[2024-10-24] MEDS: Apixaban 5 MG TABLET PO (09:22)
--- NOTE | 2024-10-24 09:22 | P.PNIM_ITS ---
Subjective Subjective Date of Service: 10/24/24 Interval History: Was able to tolerate his own machine overnight Physical Exam 2 Vital Signs: Vital Signs: Last Vital Signs Temp 98.4 F 10/24/24 08:00 Pulse 67 10/24/24 08:00 Resp 20 10/24/24 08:00 BP 141/71 H 10/24/24 08:00 Pulse Ox 92 10/24/24 08:00 O2 Del Method CPAP 10/24/24 08:00 O2 Flow Rate 4 10/24/24 08:00 Oxygen Flow Rate 2 10/18/24 12:52 BMI result Body Mass Index 46.6 Const: General: cooperative, comfortable, no acute distress, alert and awake Nutritional Appearance: obese morbidly obese Orientation/consciousness: p atient oriented x3 Limitations: no limitations HEENT: Head: Yes normocephalic and Yes atraumatic Neck: Neck: Yes trachea midline, Yes supple and Yes no JVD Resp: Effort & Inspection: normal respiratory effort Auscultation: clear to auscultation bilaterally and diminished lung sounds Cardio: Jugular venous distension: no JVD Palpation: normal PMI Rate: r egular rate Rhythm: regular rhythm Heart sounds: S1 normal heart sound present, S2 normal heart sound present, no click, no gallops and no murmurs GI: Auscultation: normal bowel sounds Skin: General skin exam: no rashes or lesions noted Neuro: General: patient oriented x3 and no focal motor deficits Extrem: General: Yes no clubbing, cyanosis or edema Psych: Appearance: grossly normal Objective Data Active Medications Acetaminophen (Acetaminophen 325 Mg Tablet) 650 mg PO Q6H PRN PRN Reason: Pain, Mild (Pain Scale 1-3), fever or headache Last Admin: 10/22/24 20:42 Dose: 650 mg Documented By: KOFI Albuterol Sulfate (Albuterol Sulfate (0.083%) 2.5 Mg/3 Ml Vial.Neb) 2.5 mg INHALE Q4H PRN PRN Reason: Shortness of Breath/Wheezing Last Admin: 10/21/24 23:41 Dose: 2.5 mg Documented By: CASH Albuterol/Ipratropium (Albuterol/Iprat 2.5/0.5mg 3 Ml Ampul.Neb) 3 ml INHALE RQ6H WHILE AWAKE [facility] Last Admin: 10/24/24 07:52 Dose: 3 ml Documented By: GONZALO Apixaban (Apixaban 5 Mg Tablet) 5 mg PO BID [facility] Last Admin: 10/23/24 20:29 Dose: 5 mg Documented By: ELLIE Benzonatate (Benzonatate 100 Mg Capsule) 100 mg PO TID PRN PRN Reason: Cough Calcium Carbonate (Calcium Carbonate 750 Mg Tab.Chew) 750 mg PO Q4H PRN PRN Reason: Heartburn Diltiazem HCl (Diltiazem Hcl Cd 240 Mg Cap.Er.Deg) 240 mg PO BEDTIME [facility]; Protocol Last Admin: 10/23/24 20:29 Dose: 240 mg Documented By: ELLIE Dronedarone (Dronedarone Hcl 400 Mg Tablet) 400 mg PO BID [facility] Last Admin: 10/23/24 20:29 Dose: 400 mg Documented By: ELLIE Magnesium Hydroxide (Milk Of Magnesia 30 Ml Oral.Susp) 30 ml PO DAILY PRN PRN Reason: Constipation Melatonin (Melatonin 3 Mg Tablet) 6 mg PO BEDTIME PRN PRN Reason: Insomnia Methylprednisolone Sodium Succinate (Methylprednisolone Sod Succ 125 Mg/2 Ml Vial) 60 mg IVPUSH Q8H [facility] Last Admin: 10/24/24 04:35 Dose: 60 mg Documented By: ELLIE Metoprolol Succinate (Metoprolol Succinate Er 100 Mg Tab.Er.24h) 100 mg PO BEDTIME [facility]; Protocol Last Admin: 10/23/24 20:29 Dose: 100 mg Documented By: ELLIE Omeprazole (Omeprazole 20 Mg Capsule.) 20 mg PO DAILY@0630 [facility] Last Admin: 10/24/24 06:29 Dose: 20 mg Documented By: ELLIE Ondansetron HCl (Ondansetron Hcl 4 Mg/2 Ml Vial) 4 mg IVPUSH Q8H PRN PRN Reason: Nausea and Vomiting Sodium Chloride (0.9 % Sodium Chloride Flush 3 Ml Syringe) 3 ml IVFLUSH QSHIFT [facility] Last Admin: 10/23/24 20:30 Dose: 3 ml Documented By: ELLIE Labs 10/24/24 06:19 10/24/24 06:19 Labs: Laboratory Results - last 24 hr 10/23/24 10/23/24 10/24/24 08:38 16:09 06:19 MCV 86.6 MCH 26.4 L MCHC 30.4 L RDW 16.7 H Plt Count 362 MPV 10.3 Absolute Nucleated RBC 0.000 Nucleated RBC % (auto) 0.0 O2 Saturation 93.0 ABG pH at Pt Temp 7.42 ABG pCO2 at Pt Temp 59 H ABG pO2 at Pt Temp 73 L ABG HCO3 38 H ABG Base Excess (Actual) 11.1 Anion Gap 14 12 Estim Creat Clear Calc 126.0 122.0 Estimated GFR > 60 > 60 Fasting Glucose 135 H 133 H Calcium 9.8 D 9.4 Assessment and Plan (1) CHF (congestive heart failure): Status: Acute Plan 63M PMH morbid obesity, COPD with p.r.n. O2, hyperthyroid, paroxysmal atrial fibrillation, DEVIN on BiPAP presented with shortness of breaths Acute on chronic hypoxic respiratory failure secondary to acute on chronic diastolic CHF Cardio appreciated, echo with normal EF, diastolic dysfunction, IVC collapsing greater than 50% evidence for having being diuresed well, we will hold on further IV diuretics and start Bumex 1 mg daily for maintenance Wean O2 as tolerated Continues to be hypoxic above baseline pulm appreciated - started on systemic steroids, wean o2, follow up hypersensitivity studies negative CTA COPD Continue inhalers prn DEVIN Now tolerating his home device Morbid obesity Weight loss recommended Hyperthyroid Continue methimazole Paroxysmal atrial fibrillation Continue metoprolol, Cardizem, Multaq, Eliquis DVT prophylaxis with Eliquis Full Code reason for continued hospitalization: Still not at baseline O2 Quality Stroke Does the patient have a stroke diagnosis?: No VTE Prior VTE?: Yes VTE Risk Level:: Medical - moderate - high VTE Device Contraindication: Treatment Not Indicated VTE Drug Contraindication: N/A - Med Ordered
--- NOTE | 2024-10-24 10:36 | P.DS_ITS ---
DS: Providers Provider Date of Service: 10/24/24 Date of admission: 10/18/24 16:02 Date of discharge: 10/24/24 Primary care physician: Alea Hull MD Consults: 10/20/24 10:34 Consult to Cardiology Routine Consulting Provider: [facility] Reason for consultation: chf Has provider been notified: Yes 10/21/24 13:41 Consult to Pulmonology Routine Consulting Provider: [facility] Reason for consultation: chronic hypercapnea, acute hypoxia DS: Diagnosis Discharge Diagnosis (1) CHF (congestive heart failure): Status: Acute DS: Summary Hospital Course Hospital Course: from initial hpi: 63 years old male with PMH of COPD, Afib on Eliquis, DEVIN on bipap among others who presented with worsening dyspnea on exertion and increase O2 supplement. The patient reports worsening dyspnea with minimal exertion and increase O2 requirements to 6-7L. No chest pain, palpitations, SOB, nausea, vomiting, diarrhea or urinary symptoms. The patient uses BiPap at bedtime. he works 40 hours a week and uses O2 usually with exertion but at rest he can sat 90% on RA. In ED found hypoxic to 85% on 6L. BNP elevated. CXR suggestive of pulmonary edema. Will be admitted for further evaluation and treatment. hospital course: Patient was admitted for acute on chronic hypoxic and hypercapnic respiratory failure secondary to acute on chronic diastolic CHF and COPD/obesity hypoventilation with acute pneumonitis. Patient was diuresed with IV Lasix, echo showed normal ejection fraction, diastolic dysfunction, IVC collapse greater than 50% on inspiration so diuretics were then held and will be restarted on maintenance Lasix 40 mg b.i.d. on discharge. He was seen by Pulmonary who made adjustments to patient's home Ivap started on steroids and started workup for hypersensitivity pneumonitis. Patient was able to be weaned down to 2 L. for morbid obesity weight loss recommended. For hyperthyroid was continued on methimazole. For paroxysmal atrial fibrillation was continued on metoprolol, Cardizem, Multaq, Eliquis. Patient is feeling better and will be discharged home on 5 more days of prednisone. Time Attestation Discharge Coordination Time (in mins): 34 Quality: Safe Use of Opioids Does Pt have an Active Cancer Diagnosis on the Problem List?: No Quality: Stroke Does the patient have a stroke diagnosis?: No Physical Exam Vital Signs: Vital Signs: Last Vital Signs Temp 98.4 F 10/24/24 08:00 Pulse 67 10/24/24 08:00 Resp 20 10/24/24 08:00 BP 141/71 H 10/24/24 08:00 Pulse Ox 92 10/24/24 08:00 O2 Del Method CPAP 10/24/24 08:00 O2 Flow Rate 4 10/24/24 08:00 Oxygen Flow Rate 2 10/18/24 12:52 BMI result Body Mass Index 46.6 Const: General: cooperative, comfortable, no acute distress, alert and awake Nutritional Appearance: obese morbidly obese Orientation/consciousness: patient oriented x3 Limitations: no limitations HEENT: Head: Yes normocephalic and Yes atraumatic Neck: Neck: Yes trachea midline, Yes supple and Yes no JVD Resp: Effort & Inspection: normal respiratory effort Auscultation: clear to auscultation bilaterally and diminished lung sounds Cardio: Jugular venous distension: no JVD Palpation: normal PMI Rate: regular rate Rhythm: regular rhythm Heart sounds: S1 normal heart sound present, S2 normal heart sound present, no click, no gallops and no murmurs GI: Auscultation: normal bowel sounds Skin: General skin exam: no rashes or lesions noted Neuro: General: patient oriented x3 and no focal motor deficits Extrem: General: Yes no clubbing, cyanosis or edema Psych: Appearance: grossly normal DS: Data Data Completed and Pending Completed studies during hospitalization [Text1]: Procedures Assistance with Respiratory Ventilation, Less than 24 Consecutive Hours, Continuous Positive Airway Pressure (10/06/23) Labs on day of discharge: Laboratory Results - last 24 hr 10/23/24 10/24/24 16:09 06:19 WBC 18.2 H RBC 5.31 Hgb 14.0 Hct 46.0 MCV 86.6 MCH 26.4 L MCHC 30.4 L RDW 16.7 H Plt Count 362 MPV 10.3 Absolute Nucleated RBC 0.000 Nucleated RBC % (auto) 0.0 O2 Saturation 93.0 ABG pH at Pt Temp 7.42 ABG pCO2 at Pt Temp 59 H ABG pO2 at Pt Temp 73 L ABG HCO3 38 H ABG Base Excess (Actual) 11.1 Sodium 138 Potassium 4.5 Chloride 94 L Carbon Dioxide 37 H Anion Gap 12 BUN 35 H Creatinine 0.94 Estim Creat Clear Calc 122.0 Estimated GFR > 60 Fasting Glucose 133 H Calcium 9.4 Discharge Plan Discharge Anticipated Discharge Date/Time: 10/24/24 10:34 Patient Disposition: Home, Self-Care Discharge Diagnosis: pneumonitis, chf Referrals: Alea Hull MD [Primary Care Provider] - 1 Week Ronak Mills MD [Physician] - 1 Week Discharge Medications: New prednisone 20 mg tablet 40 mg PO DAILY Qty: 10 0RF Continued methimazole 5 mg tablet 2.5 mg PO BEDTIME Qty: 90 1RF metoprolol succinate 100 mg tablet extended release 24 hr 100 mg PO BEDTIME Qty: 90 3RF furosemide 40 mg tablet 40 mg PO BID Qty: 180 1RF Eliquis 5 mg tablet 5 mg PO BID Qty: 180 3RF roflumilast 500 mcg tablet 500 mcg PO BEDTIME 90 Days Qty: 90 3RF Trelegy Ellipta 200-62.5-25 mcg blister with device 1 inh inhalation DAILY 90 Days Qty: 3 3RF diltiazem HCl 240 mg capsule,extended release 24 hr 240 mg PO BEDTIME 90 Days Qty: 90 3RF Multaq 400 mg tablet 400 mg PO BID Qty: 180 3RF multivitamin Tablet 1 tab PO BEDTIME cholecalciferol (vitamin D3) 25 mcg (1,000 unit) Tablet 25 mcg PO BEDTIME thiamine HCl (vitamin B1) 500 mg Tablet 500 mg PO BEDTIME acetaminophen 500 mg Tablet 1,000 mg PO Q6H PRN (Reason: Pain) vitamin E 268 mg (400 unit) Capsule 268 mg PO BEDTIME omeprazole magnesium 20 mg Capsule,Delayed Release(Dr/Ec) 20 mg PO DAILY@0630 ferrous sulfate 325 mg (65 mg iron) tablet 325 mg PO MOTUWETHFR@0900 (DME) compr.stocking,knee,long,large Misc See Rx Instructions .Route Qty: 12 0RF Rx Instructions: As directed (DME) CPAP Machine/Device Device See Rx Instructions .Route Rx Instructions: As directed (DME) Oxygen Home Use Kit See Rx Instructions .Route Rx Instructions: As directed (DME) nebulizers Misc See Rx Instructions .Route Rx Instructions: As directed Discontinued amoxicillin 500 mg capsule 500 mg PO Q8H Discharge Orders: Discharge Order (Routine); Ordered 10/24/24 Ordered By: Cam Jesin Diet: Advance to usual diet Activity on Discharge: As tolerated Stand Alone Forms: Patient Portal Discharge page Print Language: Chilean Care Plan Goals: recovery Health Concerns: copd/ohs/chf Plan of Treatment: 5 more days prednisone, follow up with pulm, o2 supplement for goal saturation 89-94% Assessment: see above
--- NOTE | 2024-10-24 10:57 | MHC.CM.PN ---
Pt has been medically cleared for DC, he will go home via private transport, plan is home, self care.
[2024-10-25 17:43] LABS: Myeloperoxidase Antibody <1.0 AI; Proteinase 3 PR3 Antibodies <1.0 AI
[2024-10-26 02:08] LABS: Immunoglobulin E 54 kU/L (<OR=114)
[2024-10-26 13:59] LABS: Anti Nuclear Antibody Screen NEGATIVE (NEGATIVE)
[2024-10-27 07:03] LABS: Cyclic Citrullinated Peptide <16 UNITS
[2024-10-30 10:29] LABS: Asperg fumigatus Precip Abs NEGATIVE (NEGATIVE); Micropoly faeni Abs NEGATIVE (NEGATIVE); Pigeon serum Abs NEGATIVE (NEGATIVE); Saccharo pora viridis Abs NEGATIVE (NEGATIVE); Thermo candidus Abs NEGATIVE (NEGATIVE); Thermoa vulgaris #1 NEGATIVE (NEGATIVE)
== END 2024-10-24 10:00 | disposition home or self-care (01) | DRG 194 ==
LOC: HO.ED 15:44 → HO.EDOVER 16:11 → HO.IMC 22:12
PROVIDERS: Hospitalist; Admitting Provider Student in an Organized Health Care Education/Training Program; Emergency Provider Emergency Medicine; PCP Internal Medicine; Visit Provider Internal Medicine
DX: I50.33 Acute on chronic diastolic (congestive) heart failure (principal); J96.21 Acute and chronic respiratory failure with hypoxia; Z79.01 Long term (current) use of anticoagulants; J98.4 Other disorders of lung; I48.0 Paroxysmal atrial fibrillation; E05.90 Thyrotoxicosis, unspecified without thyrotoxic crisis or storm; Z68.42 Body mass index [BMI] 45.0-49.9, adult; E66.2 Morbid (severe) obesity with alveolar hypoventilation; Z20.822 Contact with and (suspected) exposure to COVID-19; Z71.3 Dietary counseling and surveillance; Z99.81 Dependence on supplemental oxygen; Z86.711 Personal history of pulmonary embolism; Z87.891 Personal history of nicotine dependence; Z79.51 Long term (current) use of inhaled steroids; Z79.899 Other long term (current) drug therapy
CPT/HCPCS: 0241U; 36415; 36600; 71045; 71275; 80048; 80053; 82785; 82803; 83735; 83880; 84484; 85025; 85027; 85652; 86021; 86038; 86200; 86331; 86606; 86609; 93306; 93308; 94640; 94660; 99285; J1120; J1940; J2919; Q9957; Q9967

== ENCOUNTER 2024-10-18 16:02 | Outpatient (BNV) | payer BC, SELFPAY | END 2024-10-21 11:57 | PROVIDERS: Admitting Provider Student in an Organized Health Care Education/Training Program; Emergency Provider Emergency Medicine; PCP Internal Medicine; Visit Provider Radiology Diagnostic Radiology | DX: R91.1 Solitary pulmonary nodule (principal); J44.9 Chronic obstructive pulmonary disease, unspecified; R09.02 Hypoxemia | CPT/HCPCS: 71275 ==

== ENCOUNTER 2024-10-18 16:02 | Outpatient (BNV) | payer BC, SELFPAY | END 2024-10-20 07:00 | PROVIDERS: Admitting Provider Student in an Organized Health Care Education/Training Program; Emergency Provider Emergency Medicine; PCP Internal Medicine; Visit Provider Internal Medicine Cardiovascular Disease | DX: I50.9 Heart failure, unspecified (principal) | CPT/HCPCS: 93306 ==

== ENCOUNTER → 2024-10-18 16:02 | Outpatient (BNV) | payer BC, SELFPAY | PROVIDERS: Admitting Provider Student in an Organized Health Care Education/Training Program; Emergency Provider Emergency Medicine; PCP Internal Medicine; Visit Provider Hospitalist | DX: J96.21 Acute and chronic respiratory failure with hypoxia (principal); I50.9 Heart failure, unspecified; J41.0 Simple chronic bronchitis; J98.4 Other disorders of lung | CPT/HCPCS: 99223; 99233 ==

== ENCOUNTER → 2024-10-18 16:02 | Outpatient (BNV) | payer BC, SELFPAY | PROVIDERS: Admitting Provider Student in an Organized Health Care Education/Training Program; Emergency Provider Emergency Medicine; PCP Internal Medicine; Visit Provider Student in an Organized Health Care Education/Training Program | DX: J96.21 Acute and chronic respiratory failure with hypoxia (principal); J44.1 Chronic obstructive pulmonary disease with (acute) exacerbation; I50.33 Acute on chronic diastolic (congestive) heart failure | CPT/HCPCS: 99223; 99232; 99233; 99239 ==

== ENCOUNTER → 2024-10-18 16:02 | Outpatient (BNV) | payer BC, SELFPAY | PROVIDERS: Admitting Provider Student in an Organized Health Care Education/Training Program; Emergency Provider Emergency Medicine; PCP Internal Medicine; Visit Provider Internal Medicine Cardiovascular Disease | DX: J96.21 Acute and chronic respiratory failure with hypoxia (principal) | CPT/HCPCS: 99222 ==

== ENCOUNTER 2024-11-03 13:43 | Outpatient (AMB) | payer BC, SELFPAY ==
--- NOTE | 2024-11-03 13:49 | MHC.OFFVIS ---
Vital Signs 11/03/24 13:52 Height 5 ft 11 in Weight 330 lb 11.094 oz BMI 46.1 BP 128/60 Blood Pressure Location Lt brachial Position Sitting Pulse 82 Pulse Oximetry (%) 91 L Oxygen Delivery Method Nasal Cannula Intake Visit Reasons: Anemia Intake Note: Mario presents in the office as a new patient for anemia. CC: He is unaware of any bleeding - he states he gets diarrhea once in a while. Has not seen any blood in his stools - darker stools due to iron. 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 Pt reports having an emergency surgery of LEFT leg in Jan 2024 at [facility]: Transfered from [facility] [place] [facility] 2 [place] - CT of the LLE was completed with identification of a large hematoma extending from the mid thigh to the calf with concern for active extravasation. Underwent emergent hematoma evacuation and fasciotomies to prevent compartment syndrome. Lost significant amt of blood H/H dropped from 14 to 8 gm/dl within a day, also required PRBC transfusion intra-op. Since his discharge from hospital, he has been started on PO iron supplements with good response. Most recent CBC with normalisation of H/H. Pt without abd pain, N,V. Stools are dark with iron supplements but prior to that were brown. No blood. Last colo 2021: ([facility]) Single 10 mm sigmoid polyp was removed. Repeat colo recommended in 3 years. [facility] Medical History (Updated 11/03/24 @ 16:42 by Kristal Timmons MD) Hypoventilation associated with obesity syndrome COPD exacerbation Hx of atrial flutter Obesity DEVIN (obstructive sleep apnea) COPD (chronic obstructive pulmonary disease) Chronic diastolic heart failure Acute on chronic diastolic (congestive) heart failure Acute exacerbation of chronic obstructive airways disease Hyperthyroidism Venous insufficiency of both lower extremities Chronic respiratory failure Hx pulmonary embolism PAF (paroxysmal atrial fibrillation) Lung mass Surgical History (Updated 11/03/24 @ 13:53 by AMANUEL Mcdonnell) History of esophagogastroduodenoscopy (EGD) H/O cardiac radiofrequency ablation Family History Father Bone cancer Mother COPD (chronic obstructive pulmonary disease) Social History Household Members: Spouse Household Members Other:: Housing: House Do you presently have visiting nurse or other home services: No Unable to assess alcohol history related to: Unknown Alcohol intake: current Alcohol intake frequency: holidays/special occasions only Patient Tobacco Use Status: Former Tobacco user Tobacco use type: Cigarette Cigarette Packs Per Day: 1.5 Cigarettes Per Day: 30.0 Years Smoked: 25 e-Cigarette/Vaping Use: Never Used Second Hand Smoke Exposure: No Advance Directives Date on File: 07/14/23 service: No Current occupational status: employed Cognitive needs: No Hearing needs: No Vision needs: Yes Review of Systems Const All systems reviewed & are unremarkable except as noted in HPI and below Physical Exam Vital Signs: Last Vital Signs Pulse 82 11/03/24 13:52 BP 128/60 11/03/24 13:52 Pulse Ox 91 L 11/03/24 13:52 Oxygen Delivery Method Nasal Cannula 11/03/24 13:52 BMI result Body Mass Index 46.1 No apparent distress with obesity Nonicteric wearing NC for O2 Abdomen soft, nondistended Alert and oriented x3, normal gait Assessment & Plan Assessment & Plan (1) COPD (chronic obstructive pulmonary disease): Code(s): J44.9 - Chronic obstructive pulmonary disease, unspecified Category: Medical Qualifiers: COPD type: chronic bronchitis Chronic bronchitis type: simple Qualified Code(s): J41.0 - Simple chronic bronchitis (2) Iron deficiency: Code(s): E61.1 - Iron deficiency Category: Medical (3) Anemia: Code(s): D64.9 - Anemia, unspecified Category: Medical (4) Morbid obesity: Code(s): E66.01 - Morbid (severe) obesity due to excess calories Category: Medical (5) CHF (congestive heart failure): Code(s): I50.9 - Heart failure, unspecified Category: Medical Qualifiers: Heart failure chronicity: unspecified Heart failure type: unspecified Qualified Code(s): I50.9 - Heart failure, unspecified (6) Hypoventilation associated with obesity syndrome: Code(s): E66.2 - Morbid (severe) obesity with alveolar hypoventilation Category: Medical (7) Hematoma of left lower extremity: Code(s): S80.12XA - Contusion of left lower leg, initial encounter Category: Medical Plan #GUICHO: Developed iron deficiency anemia earlier this year after extensive hematoma formation and blood loss in LEFT lower extremity after a fall. H/H 14-->8. Now normalized with PO iron supplementation. Will recheck iron panel to guide further supplementation. Reviewed with the pt that normalization of H/H with iron supplementation argues against ongoing losses. #Polyp surveillance: Due for colo in 2024. Will send out msg today to book this. Split PEG prep instructions reviewed. Will need to HOLD eliquis x 4 doses prior to colo. Cardiology and Pulm clearance requested. Follow up after colo. Orders: Orders IRON PROFILE Today D64.9 - Anemia, unspecified, E61.1 - Iron deficiency Ferritin Today D64.9 - Anemia, unspecified, E61.1 - Iron deficiency Complete Blood Count no Diff Today D64.9 - Anemia, unspecified, E61.1 - Iron deficiency Vitamin B12 and Folate Today D64.9 - Anemia, unspecified Medications: New peg 3350-electrolytes 236-22.74-6.74 -5.86 gram (Golytely) as per split prep instructions, until fecal effluent is clear 240 mL PO Q10M 4,000 mL 0RF colonoscopy Coding Level of Care Code New Pt Level 4 (20722) Diagnoses Simple chronic bronchitis J41.0 COPD type: chronic bronchitis Chronic bronchitis type: simple Iron deficiency E61.1 Anemia D64.9 Morbid obesity E66.01 Congestive heart failure, unspecified HF chronicity, unspecified heart failure type I50.9 Heart failure chronicity: unspecified Heart failure type: unspecified Hypoventilation associated with obesity syndrome E66.2 Hematoma of left lower extremity S80.12XA
[2024-11-03 13:52] VITALS: BP 128/60; PULSE 82; O2SAT 91; BMI 46.1
--- OUTSIDE RECORDS SUMMARY | 2024-11-09 19:38 | XMS_ITS ---
Author Organization [facility] Address [address] [place] [address] Care Team Providers Care Skilled Trades Teacher Name Role Phone Alea Hull MD Primary Care Provider Hector Brown [phone] REASON FOR VISIT Reschedule Encounters Encounter Location Date Provider Diagnosis [facility] [address] [place] [address] 01/23/2024 Hector Rodriguez Plan Of Treatment No Information Progress Notes * Mario DOLANDOB:1960 (63 yo M)Acc No.[id number]:01/23/2024 Patient:?Mario Dolan :1960???Age:63 Y???Sex:Male Address:[address] [place] [id number] * true * Date:? Generated for Prashanthi katie/Makayla/eTransmitting on:?11/09/2024 07:38 PM EST
--- OUTSIDE RECORDS SUMMARY | 2024-11-09 19:38 | XMS_ITS ---
Author Organization [facility] Address [address] [place] [id number] Care Team Providers Care Executive Producer Name Role Phone Alea Hull MD Primary Care Provider Hector Brown Unavailable [phone] Lillian Matias Unavailable [phone] Encounters Encounter Location Date Provider Diagnosis [address] [address] 01/28/2024 Lillian Matias Plan Of Treatment No Information Progress Notes * Mario DOLANDOB:1960 (64 yo M)Acc No.[id number]:01/28/2024 Progress Notes Patient:?Mario DOLAN Provider:?Lillian Matias DPM :1960???Age:63 Y???Sex:Male John Paul e:01/28/2024 Address:[address] [place], [place] [id number] Pcp:Alea Hull MD Subjective: * Chief Complaints: * ??? * Medical History:? Objective: * Vitals:? Assessment: Plan: * Treatment: * Images: * The named appointment provid er may or may not be the originator of this progress note, and it is not deemed complete until electronically signed by the appointment provider. Sign off status: Pending * Provider:?Lillian Matias DPM Date:? Generated for Carly wilson/Makayla/eTransmitting on:?11/09/2024 07:38 PM EST
--- OUTSIDE RECORDS SUMMARY | 2024-11-09 19:38 | XMS_ITS ---
Author Organization [facility] Address [address] [place] [address] Care Team Providers Care Lead Blender Name Role Phone Alea Hull MD Primary Care Provider Hector Brown Unavailable [phone] Allergies No Known Allergies REASON FOR VISIT Wart(s) Medications Medication SIG (Take, Route, Frequency, Duration) Notes Start Date End Date Status Albuterol Sulfate 2.5 MG/0.5ML as directed Inhalation Unkno wn Spiriva Respimat 2.5 MCG/ACT 2 puffs Inhalation Once a day Unknown Albuterol Sulfate 108 (90 Base) MCG/ACT 1 puff as needed Inhalation every 4 hrs Unknown [place] 3 1000 MG 1 capsule Orally Onc e a day Unknown Omeprazole Magnesium 20 MG 1 tablet 30 m inutes before morning meal Orally Once a day Unknown Azelastine HCl Unkno wn Acetaminophen Active Symbicort 160-4.5 MCG/ACT 2 puffs Inhala tion Twice a day Unknown Dronedarone HCl 400 MG 1 tablet with poonam ls Orally Twice a day Unknown Eliquis 5 MG 1 tablet Orally Twic e a day Active methIMAzole 2.5 mg Active Metoprolol Succinate ER 100 MG 1 tablet Orally Once a day Active dilTIAZem HCl ER 240 MG 1 tablet Orally Once a day Active Furosemide 40 MG 1 tablet Orally Once a day Active Vitamin D3 25 MCG (1000 UT) 1 capsule Or ally Once a day Active Multivitamin Active Roflumilast 500 MCG 1 tablet Orally Once a day Active Vitamin B1 Active Vitamin E 268 MG (400 UNIT) 1 capsule Or ally Once a day Active Fish Oil Active Probiotic Active Multaq 400 MG 1 tablet with meals Orally Twice a day Active Social History Tobacco Use: Social History Observation Description Date Details (start date - stop date) Former Smoker NA - NA Tobacco Use/Smoking Question Answer Notes Are you a: former smoker Additional Findings: Tobacco Non-User Current no n-smoker Alcohol Screen Question Answer Notes Did you have a drink containing alcohol in the p ast year? Yes Points 0 Interpretation Negative Tobacco use other than smoking: Question Answer Notes Are you an other tobacco user? No Vital Signs Height 5 ft 11 in in 03/03/2024 Weight 320 lbs 03/03/2024 BMI 44.63 kg/m2 03/03/2024 Encounters Encounter Location Date Provider Diagnosis [facility] [address] [place] [address] 03/03/2024 Hector Rodriguez Right foot pain M79.671 ; Ingrown nail L60.0 and Dystrophic nail L60.3 Assessments Encounter Date Diagnosis (ICD Code) Assessment Notes Treatment Notes Treatment Clinical Notes Section Notes 03/03/2024 Right foot pain (ICD-10 - M79.671) 03/03/2024 Ingrown nail (ICD-10 - L60.0) 03/03/2024 Dystrophic nail (ICD-10 - L60.3) Plan Of Treatment Next Appt Details Follow Up: prn, Reason: Progress Notes * Mario DOLANDOB:1960 (63 yo M)Acc No.[id number]:03/03/2024 Progress Note Patient:?Mario Dolan Provider:?Hector Rodriguez DPM :1960???Age:63 Y???Sex:Male John Paul e:03/03/2024 Address:[address] [place], [place] [id number] Pcp:Alea Hull MD Subjective: * Chief Complaints: * ???Wart(s) * HPI: ???Skin problems:?Pt States PCP Visit: ?DATE?10/15/2023 ?Location:?Right Midfoot.?Duration:?several months.?Course:?improved.? * ROS:?General/Constitutional:?Nausea?denies.?Vomiting?denies.?Hunger Thirst?denies.?Loss appetite?denies.?Chills?denies.?Fatigue?denies.?Fever?denies.?Night Sweats?denies.?Unexplained weight loss?denies.?Unexplained weight gain?denies.?HEENTM:?Dentures?denies.?Dizziness?denies.?Glasses/contacts?denies.?Retinopathy?de nies.?Blurred/double vision?denies.?TMJ?denies.?Discharge/drainage?denies.?Implants?denies.?Sore throat?denies.?Dental implants?denies.?Hard of hearing ?denies.?Difficulty chewing/swallowing/speaking?denies.?Nose bleeds?denies.?Sore mouth?denies.?Respiratory:?On Oxygen?denies.?Pneumonia/pleurisy?denies.?Bronchitis?denies.?Emphysema?denies.?C oughing?denies.?Cough blood?denies.?Shortness of breath?denies.?Wheezing?denies.?Cardiovascular:?Pacemaker?denies.?MVP?denies.?WPW?denies.?CHF?denies.?Heart attack?denies.?Septal defect?denies.?Rapid beat?denies.?Chest pain ?denies.?Atrial Fib.?denies.?Murmur/Palpitations?denies.?Gastrointestinal:?Hemorrhoids?denies.?Stomach/Abdominal pain?denies.?Dark blood stool?denies.?Irritable bowel ?denies.?Constipation?denies.?Diarrhea?denies.?Hematology:?Swelling?denies.?Clots?denies.?Varicose Veins?denies.?Bruising?denies.?Bleeding problem?denies.?Genitourinary:?Blood urine?denies.?Frequent/Painfu/urination/bladder control?denies.?Kidney stones?denies.?Infection (UTI)?denies.?Nephropathy?denies.?sex trans dis (STD)?denies.?Prostate?denies.?Musculoskeletal:?Hammertoes?denies.?Bunions?denies.?Back Pain?denies.?Muscle Cramps/ Resting?denies.?Muscle cramps / walking?denies.?Generalized aches and pains?denies.?Weakness?denies.?Integ.:?Pickens?denies.?Scars?denies.?Corns/calluses?denies.?Ingrown nails?denies.?Painful nails?denies.?Open Sores?denies.?Rashes?denies.?Neurologic:?Difficulty sleeping?denies.?Brain disorder?denies.?Numbness?denies.?Balance trouble?denies.?Confusion?denies.?Fainting/blackouts?denies.?Tingling?denies.?Tr emors?denies.? * Medical History:? * Surgical History:[place] [facility] [place] * Hospitalization/Major Diagno stic Procedure:[place] [place] [facility] [place] * Family History:?Mother: tye bull, COPD, diagnosed with Family history of arthritis, Other malignant neoplasm of unspecified site.?Father: , bone cancer, diagnosed with Other malignant neoplasm of unspecified site.?Siblings: diagnosed with Unspecified essential hypertension, Other malignant neoplasm of unspecified site.? * Social History:?Tobacco Use:?Tobacco Use/Smoking?Are you a:?former smoker ?Additional Findings: Tobacco Non-User?Current non-smoker ?Tobacco use other than smoking?Are you an other tobacco user??No ???Drugs/Alcohol:?Drugs?Have you used drugs other than those for medical reasons in the past 12 months??No ?Alcohol Screen?Did you have a drink containing alcohol in the past year??Yes ?Points?0 ?Interpretation?Negative ???Miscellaneous:?Caffeine: yes, frequency:, 2-3 cups per day. ?Exercise: yes, exercise treadmill. ?Marital status: . 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 * Medications:?TakingMultaq 40 0 MG Tablet 1 tablet with meals Orally Twice a dayProbiotic Fish Oil Vitamin E 268 MG (400 UNIT) Capsule 1 capsule Orally Once a dayVitamin B1 Roflumilast 500 MCG Tablet 1 tablet Orally Once a dayMultivitamin Metoprolol Succinate ER 100 MG Tablet Extended Release 24 Hour 1 tablet Orally Once a daymethIMAzole , Notes: 2.5 mgFurosemide 40 MG Tablet 1 tablet Orally Once a daydilTIAZem HCl ER 240 MG Tablet Extended Release 24 Hour 1 tablet Orally Once a dayVitamin D3 25 MCG (1000 UT) Capsule 1 capsule Orally Once a dayEliquis 5 MG Tablet 1 tablet Orally Twice a dayAcetaminophen Taking Multaq 400 MG Tablet 1 tablet with meals Orally Twice a dayTaking Probiotic Taking Fish Oil Taking Vitamin E 268 MG (400 UNIT) Capsule 1 capsule Orally Once a dayTaking Vitamin B1 Taking Roflumilast 500 MCG Tablet 1 tablet Orally Once a dayTaking Multivitamin Taking Metoprolol Succinate ER 100 MG Tablet Extended Release 24 Hour 1 tablet Orally Once a dayTaking methIMAzole , Notes: 2.5 mgTaking Furosemide 40 MG Tablet 1 tablet Orally Once a dayTaking dilTIAZem HCl ER 240 MG Tablet Extended Release 24 Hour 1 tablet Orally Once a dayTaking Vitamin D3 25 MCG (1000 UT) Capsule 1 capsule Orally Once a dayTaking Eliquis 5 MG Tablet 1 tablet Orally Twice a dayTaking Acetaminophen UnknownDronedarone HCl 400 MG Tablet 1 tablet with meals Orally Twice a daySymbicort 160-4.5 MCG/ACT Aerosol 2 puffs Inhalation Twice a dayAzelastine HCl Albuterol Sulfate 2.5 MG/0.5ML Nebulization Solution as directed Inhalation Albuterol Sulfate 108 (90 Base) MCG/ACT Aerosol Powder Breath Activated 1 puff as needed Inhalation every 4 hrsSpiriva Respimat 2.5 MCG/ACT Aerosol Solution 2 puffs Inhalation Once a dayOmeprazole Magnesium 20 MG Tablet Delayed Release 1 tablet 30 minutes before morning meal Orally Once a dayOmega 3 1000 MG Capsule 1 capsule Orally Once a dayMedication List reviewed and reconciled with the patientUnknown Dronedarone HCl 400 MG Tablet 1 tablet with meals Orally Twice a dayUnknown Symbicort 160-4.5 MCG/ACT Aerosol 2 puffs Inhalation Twice a dayUnknown Azelastine HCl Unknown Albuterol Sulfate 2.5 MG/0.5ML Nebulization Solution as directed Inhalation Unknown Albuterol Sulfate 108 (90 Base) MCG/ACT Aerosol Powder Breath Activated 1 puff as needed Inhalation every 4 hrsUnknown Spiriva Respimat 2.5 MCG/ACT Aerosol Solution 2 puffs Inhalation Once a dayUnknown Omeprazole Magnesium 20 MG Tablet Delayed Release 1 tablet 30 minutes before morning meal Orally Once a dayUnknown Milton 3 1000 MG Capsule 1 capsule Orally Once a dayMedication List reviewed and reconciled with the patient * Allergies:?N.K.D.A.yes[Aller gies Verified] Objective: * Vitals:?Ht: 5 ft 11 in, Wt:3 20, BMI:44.63, Shoe size:10.5. * Examination: ???General Examination: ?GENERAL APPEARANCE:?Reveals a pleasant, alert, well-nourished, well- developed, well hydrated individual, who demonstrates proper attention to hygiene/body habitus, and is in no acute distress, Pt serves as own?historian for office visit today.?ORIENTED:?person, place, and time.?Neurological: ?SENSORY:?Neurological exam reveals intact sensorium, pain sensation normal, vibration sensation intact, pinprick sensation is normal in the lower extremities, Pt denies, anesthesia, burning, paresthesia, tingling, B/L.?DEEP TENDON REFLEXES:?Achilles, 2/4, B/L.?Vascular: ?DP PULSES:? 2/4, B/L.?PT PULSES:? 1/4, B/L.?Dermatologic: ?VERRUCA:?resolved right foot--plantar aspect.?Orthopedic: ?MUSCLE STRENGTH:?5/5 all groups in a symmetrical fashion , B/L.?Nails: ?NAILS are:? Elongated, overgrown, dystrophic with signs of dried blood in most nail borders from pt cutting and digging at nail borders, no current ingrown nails or signs of infection noted to any nails.? Assessment: * Assessment: 1.?Ingrown nail - L60.0?2.?R ight foot pain - M79.671 (Primary)?3.?Dystrophic nail - L60.3? Plan: * Treatment: * Procedure Codes:? * Preventive Medicine:? ??Counseling:?Discussion:?-13: Office or other outpatient visit for the evaluation and management of an established patient, which required a medically appropriate history and/or examination and LOW level of DECISION MAKING for: 1 STABLE ACUTE UNCOMPLICATED PROBLEM, 2 OR MORE MINOR PROBLEMS, OR 1 STABLE CHRONIC PROBLEM, THAT POSE(S) A LOW RISK FOR MORBIDITY/MORTALITY. The visit on the day of the encounter encompassed interpreting the data and educating the patient as to the nature of their condition, treatment options available according to their individual PMH, meds, allergies, and overall health/living conditions, as well as any potential risks or complications that may occur from a failure to adhere to, and participate in, the recommended course of therapy. The discussion included a complete verbal, and/or written explanation of the examination results, any x-rays taken, the proposed diagnosis, and outline of the treatment plan. A schedule for future care needs was also explained. The patient verbalized an understanding of the instructions at this time and agreed to be an active participant in their treatment. If the patient should think of any questions or concerns after the visit, I have encouraged the patient to call the office--pt to moisturize right midfoot lesion and call prn recurrence.? * Follow Up:?prn * Images: * Sign off status: Completed true * Provider:?Hector Rodriguez DPM Date:? 024 Generated for Prashanthi katie/Makayla/eTransmitting on:?11/09/2024 07:38 PM EST History and Physical Notes * HPI (History of Present Illness) Category Sub-Category Detail Notes Category Not es Skin problems Location: Right Midfoot Duration: several months Course: improved Pt States PCP Visit: DATE: 10/15/2023 Examination Category Sub-Category Detail Notes Category Not es Neurological SENSORY: Neurological exa m reveals intact sensorium, pain sensation normal, vibration sensation intact, pinprick sensation is normal in the lower extremities, Pt denies, anesthesia, burning, paresthesia, tingling, B/L DEEP TENDON REFLEXES: Achilles, 2/4, B/L Dermatologic VERRUCA: resolved right foot--plantar aspect Orthopedic MUSCLE STRENGTH: 5/5 all groups in a symm etrical fashion , B/L General Examination GENERAL APPEARANCE: Reveals a pleasant, alert, well- nourished, well-developed, well hydrated individual, who demonstrates proper attention to hygiene/body habitus, and is in no acute distress, Pt serves as own historian for office visit today ORIENTED: person, place, and t arnel Vascular DP PULSES(B): 2/4, B/L PT PULSES(B): 1/4, B/L Nails NAILS are: Elongated, overg rown, dystrophic with signs of dried blood in most nail borders from pt cutting and digging at nail borders, no current ingrown nails or signs of infection noted to any nails
--- OUTSIDE RECORDS SUMMARY | 2024-11-09 19:39 | XMS_ITS | Patient Health Record ---
Author Organization [facility] Address [address] [place] [address] Care Team Providers Care Liner Reroll Tender Name Role Phone Alea Hull MD Primary Care Provider UnavailHector Villarreal Unavailable [phone] Lillian Matias Unavailable [phone] Allergies No Known Allergies Reason For Referral No Information Medications Medication SIG (Take, Route, Frequency, Duration) Notes Start Date End Date Status Multivitamin Active Albuterol Sulfate 2.5 MG/0.5ML as directed Inhalation Unkno wn Roflumilast 500 MCG 1 tablet Orally Once a day Active Azelastine HCl Unkno wn methIMAzole 2.5 mg Active Spiriva Respimat 2.5 MCG/ACT 2 puffs Inhalation Once a day Unknown Metoprolol Succinate ER 100 MG 1 tablet Orally Once a day Active Albuterol Sulfate 108 (90 Base) MCG/ACT 1 puff as needed Inhalation every 4 hrs Unknown Acetaminophen Active Vitamin B1 Active Symbicort 160-4.5 MCG/ACT 2 puffs Inhala tion Twice a day Unknown Vitamin E 268 MG (400 UNIT) 1 capsule Or ally Once a day Active Dronedarone HCl 400 MG 1 tablet with poonam ls Orally Twice a day Unknown Fish Oil Active dilTIAZem HCl ER 240 MG 1 tablet Orally Once a day Active [place] 3 1000 MG 1 capsule Orally Onc e a day Unknown Furosemide 40 MG 1 tablet Orally Once a day Active Omeprazole Magnesium 20 MG 1 tablet 30 m inutes before morning meal Orally Once a day Unknown Probiotic Active Eliquis 5 MG 1 tablet Orally Twic e a day Active Multaq 400 MG 1 tablet with meals Orally Twice a day Active Vitamin D3 25 MCG (1000 UT) 1 capsule Or ally Once a day Active Social History Tobacco Use: [...] 03/03/2024 Encounters Encounter Location Date Provider Diagnosis [facility] [address] 11/21/2023 Lillian Matias Right foot pain M79.671 ; Plantar wart B07.0 ; Ingrown nail L60.0 and Dystrophic nail L60.[address] [address] 03/03/2024 Hector Rodriguez Right foot pain M79.671 ; Ingrown nail L60.0 and Dystrophic nail L60.[address] [address] 11/21/[address] [address] 01/01/[address] [address] 01/23/2024 Hector Rodriguez Assessments Encounter Date Diagnosis (ICD Code) Assessment Notes Treatment Notes Treatment Clinical Notes Section Notes 11/21/2023 Plantar wart (ICD-10 - B07.0) 11/21/2023 Right foot pain (ICD-10 - M79.671) 03/03/2024 Ingrown nail (ICD-10 - L60.0) 03/03/2024 Right foot pain (ICD-10 - M79.671) 03/03/2024 Dystrophic nail (ICD-10 - L60.3) 11/21/2023 Ingrown nail (ICD-10 - L60.0) 11/21/2023 Dystrophic nail (ICD-10 - L60.3) Plan Of Treatment No Information Insurance Providers Payer Name Payer Address Payer Phone Subscriber Number Group Number Insured Name Patient Relationship to Insured Coverage Start Date Coverage End Date Johanny All Others [address] [place] [address] [phone] [id number] Lissy Bill Spouse - patient is the spouse of the insured Medical (General) History Medical History History ICD Code COPD Chronic diastolic heart failure Hyperthyroidism Venous insufficiency of both lower extre mities Pulmonary embolism Acute exacerbation of chronic obstructiv e airways disease Chronic respiratory failure Paroxysmal atrial flutter Lung mass Heart disease High blood pressure Lung disease Measles Mumps Chicken pox A fib Surgical History Surgery Date(Month/Year) cardiac radiofrequency ablasion [facility]- Left leg surgery 01/12/24 Hospitalization History Reason Date(Month/Year) [facility] [place]23 [facility] - fell 01/12/24
== END 2024-11-03 14:57 | disposition home or self-care (01) ==
PROVIDERS: PCP Internal Medicine; Visit Provider Internal Medicine
DX: D50.9 Iron deficiency anemia, unspecified (principal); E66.01 Morbid (severe) obesity due to excess calories; Z68.42 Body mass index [BMI] 45.0-49.9, adult; I50.9 Heart failure, unspecified; S80.12XA Contusion of left lower leg, initial encounter
CPT/HCPCS: 99204

== ENCOUNTER → 2024-11-03 13:43 | Outpatient (BNVA) | payer BC, SELFPAY | PROVIDERS: PCP Internal Medicine; Visit Provider Internal Medicine ==

== ENCOUNTER 2024-11-18 07:05 | Outpatient (REF) | payer BC, SELFPAY ==
--- OUTSIDE RECORDS SUMMARY | 2024-11-18 07:07 | XMS_ITS ---
Author Organization [facility] Address [address] [place] [address] Care Team Providers Care Requirements Analyst Name Role Phone Alea Hull MD Primary Care Provider Hector Brown [phone] REASON FOR VISIT Reschedule Encounters Encounter Location Date Provider Diagnosis [facility] [address] [place] [address] 01/23/2024 Hector Rodriguez Plan Of Treatment No Information Progress Notes * Mario DOLANDOB:1960 (63 yo M)Acc No.[id number]:01/23/2024 Patient:?Mario Dolan :1960???Age:63 Y???Sex:Male Address:[address] [place] [address] * true * Date:? Generated for Prashanthi katie/Makayla/eTransmitting on:?11/18/2024 07:07 AM EST
--- OUTSIDE RECORDS SUMMARY | 2024-11-18 07:07 | XMS_ITS ---
Author Organization [facility] Address [address] [place] [address] Care Team Providers Care Casting House Worker Name Role Phone Alea Hull MD Primary Care Provider Hector Brown Unavailable [phone] Allergies No Known Allergies REASON FOR VISIT Wart(s) Medications Medication SIG (Take, Route, Frequency, Duration) Notes Start Date End Date Status Albuterol Sulfate 2.5 MG/0.5ML as directed Inhalation Unkno wn Spiriva Respimat 2.5 MCG/ACT 2 puffs Inhalation Once a day Unknown Albuterol Sulfate 108 (90 Base) MCG/ACT 1 puff as needed Inhalation every 4 hrs Unknown [place] 3 1000 MG 1 capsule Orally Onc [...] 03/03/2024 Encounters Encounter Location Date Provider Diagnosis [facility] [address] [place] [address] 03/03/2024 Hector Rodriguez Right foot pain M79.671 [...] Notes * Mario DOLANDOB:1960 (63 yo M)Acc No.[id number]:03/03/2024 Progress Note Patient:?Mario Dolan Provider:?Hector Rodriguez DPM :1960???Age:63 Y???Sex:Male John Paul e:03/03/2024 Address:[address] [place], [place] [address] Pcp:Alea Hull MD Subjective: * Chief Complaints: [...] History:? * [place] History:[place] [facility] [place] * [place]/Major Diagno stic [place] [place] [facility] [place] * Family History:?Mother: tye [...] before morning meal Orally Once a dayUnknown [place] 3 1000 MG Capsule 1 capsule Orally [...] DPM Date:? 024 Generated for Prashanthi katie/Makayla/eTransmitting on:?11/18/2024 07:07 AM EST History and Physical Notes * HPI [...] person, place, and t arnel Vascular DP PULSES (B): 2/4, B/L PT PULSES (B): 1/4, B/L Nails NAILS are: Elongated, overg rown, dystrophic with signs of dried blood in most nail borders from pt cutting and digging at nail borders, no current ingrown nails or signs of infection noted to any nails
--- OUTSIDE RECORDS SUMMARY | 2024-11-18 07:07 | XMS_ITS ---
Author Organization [facility] Address [address] [place] [address] Care Team Providers Care Grain Shoveler Name Role Phone Alea Hull MD Primary Care Provider Hector Brown Unavailable [phone] Lillian Matias Unavailable [phone] Encounters Encounter Location Date Provider Diagnosis [address] [address] 01/28/2024 Lillian Matias Plan Of Treatment No Information Progress Notes * Mario DOLANDOB:1960 (64 yo M)Acc No.[id number]:01/28/2024 Progress Notes Patient:?Mario DOLAN Provider:?Lillian Matias DPM :1960???Age:63 Y???Sex:Male John Paul e:01/28/2024 Address:[address] [place], [place] [address] Pcp:Alea Hull MD Subjective: * Chief Complaints: [...] Matias DPM Date:? Generated for Carly wilson/Makayla/eTransmitting on:?11/18/2024 07:07 AM EST
--- OUTSIDE RECORDS SUMMARY | 2024-11-18 07:08 | XMS_ITS | Patient Health Record ---
Author [facility] Address [address] [place] [address] Care Team Providers Care Reporter Name Role Phone Alea Hull MD Primary Care Provider UnavailHector Villarreal Unavailable [phone] Lillian Matias Unavailable [phone] Allergies No Known Allergies Reason For Referral [...] 1 tablet Orally Once a day Active [place] 3 1000 MG 1 capsule Orally Onc [...] 03/03/2024 Encounters Encounter Location Date Provider Diagnosis [facility] [address] 11/21/2023 Lillian Matias Right foot pain M79.671 ; Plantar wart B07.0 ; Ingrown nail L60.0 and Dystrophic nail L60.[address] [address] 03/03/2024 Hector Rodriguez Right foot pain M79.671 ; Ingrown nail L60.0 and Dystrophic nail L60.[address] [address] 11/21/[address] [address] 01/01/[address] [address] 01/23/2024 Hector Rodriguez Assessments Encounter Date Diagnosis [...] Coverage End Date Johanny All Others [address] [place] [address] [phone] [id number] Lissy Bill Spouse - patient is [...] leg surgery 01/12/24 Hospitalization History Reason Date(Month/Year[place] [facility] [place] [facility] [place] 01/12/24
[2024-11-18 10:05] LABS: MANUAL DIFF FLAG NO
[2024-11-18 10:12] LABS: Basophils Absolute Auto 0.1 X10*3/uL (0.0-0.2); Basophils Percent Auto 0.7 % (0-2); Eosinophils Absolute Auto 0.4 X10*3/uL (0.0-0.4); Eosinophils Percent Auto 4.9 % (0-4); Hematocrit 45.7 % (42.0-52.0); Imm Gran Abs Auto 0.03 X10*3/uL (0.00-0.03); Imm Gran Pct Auto 0.4 % (0.0-0.4); Lymphocytes Percent Auto 26.7 % (20-40); Mean Corpuscular HGB Conc 30.6 g/dl (31.0-36.0); Mean Corpuscular Hemoglobin 27.5 pg (27.0-33.0); Mean Corpuscular Volume 89.6 fL (80.0-98.0); Mean Platelet Volume 10.8 fL (9.4-12.4); Monocytes Absolute Auto 0.6 X10*3/uL (0.1-1.2); Monocytes Percent Auto 8.1 % (2-11); Neutrophils Absolute Auto 4.4 x10*3/uL (2.0-8.3); Neutrophils Percent Auto 59.2 % (45-73); Platelet Count 210 X10*3/uL (160-400); Red Cell Distribution Width 18.6 % (11.0-16.0); White Blood Count 7.4 X10*3/uL (4.8-10.8)
[2024-11-18 10:28] LABS: Alanine Aminotransferase 19 U/L (0-40); Albumin Level 4.1 g/dL (3.5-5.0); Alkaline Phosphatase 62 U/L (39-117); Anion Gap 10 (12-20); Aspartate Amino Transferase 22 U/L (5-37); Bilirubin Total 0.5 mg/dL (0.0-1.0); Blood Urea Nitrogen 15 mg/dL (9-16); Calcium 8.9 mg/dL (8.4-10.2); Carbon Dioxide 37 mmol/L (22-29); Chloride 102 mmol/L (96-108); Cholesterol 185 mg/dL (<200); Estimated Glomerular Filt Rate > 60; Glucose Fasting 99 mg/dL (60-99); HDL Cholesterol 53 mg/dL (>40); Iron 78 mcg/dL (45-160); LDL Cholesterol Calculated 110 mg/dL (<100); Percent Iron Saturation 27 % (15-50); Potassium 5.1 mmol/L (3.3-5.1); Sodium 144 mmol/L (135-145); Total Iron Binding Capacity 287 mcg/dL (228-428); Total Protein 6.9 g/dL (6.5-8.0); Triglycerides 113 mg/dL (<150); Unsaturated Iron Binding 209 ug/dL
[2024-11-18 10:41] LABS: Ferritin 50 ng/mL (20-250)
[2024-11-18 10:46] LABS: TSH reflex Free T4 0.34 uIU/mL (0.32-4.0)
[2024-11-18 10:52] LABS: Folate 14.3 ng/mL (> or = 4.0); Vitamin B12 917 pg/mL (200-900)
== END 2024-11-18 07:06 | disposition home or self-care (01) ==
LOC: HO.HMGCLDS 07:05
PROVIDERS: PCP Internal Medicine; Referring Provider Internal Medicine; Visit Provider Internal Medicine
DX: D64.9 Anemia, unspecified (principal); I50.32 Chronic diastolic (congestive) heart failure; J44.1 Chronic obstructive pulmonary disease with (acute) exacerbation; I48.0 Paroxysmal atrial fibrillation; E05.90 Thyrotoxicosis, unspecified without thyrotoxic crisis or storm; I48.91 Unspecified atrial fibrillation; E61.1 Iron deficiency
CPT/HCPCS: 36415; 80053; 80061; 82607; 82728; 82746; 83540; 84443; 85025

== ENCOUNTER 2024-12-06 13:13 | Outpatient (AMB) | payer BC, SELFPAY ==
--- NOTE | 2024-12-06 13:14 | A.OFFVIS_ITS ---
Vital Signs 12/06/24 13:16 12/06/24 13:22 Height 5 ft 11 in Weight 345 lb 0.375 oz BMI 48.1 BP 180/86 H Blood Pressure Location Rt brachial Position Sitting Pulse 94 Pulse Source Pulse Oximeter Pulse Oximetry (%) 73 L 89 L Oxygen Delivery Method Nasal Cannula Nasal Cannula Oxygen Flow Rate 2 4 Intake Visit Reasons: copd Allergies No Known Allergies Allergy (Verified 12/06/24 13:20) HPI Comments Details: The patient is a 64 y/o man with a PMH morbid obesity, chronic hypoxic respiratory failure due to COPD, OHS, DEVIN, chronic diastolic chf, htn, paroxysmal afib s/p ablation, hyperthyroid, history of pe, presented with dyspnea [place] [facility] [place]. The patient states his sob has been getting progressively worse over last 2 months. initially on exertion, now at rest. has been needing to increase his home o2 supplement. recent PFTs may 2023 showed severe obstruction with FEV1 - 21%. The patient typically responds well to prednisone. He started feeling better. During the hospitalization he did have an ABG demonstrating a chronic hypercarbic respiratory failure secondary to likely has advanced COPD. He does use a BiPAP or a noninvasive ventilator at home. Will try to get a download from his [employer] company, [employer]. In the meantime he is completing the prednisone taper. Will go ahead and optimize his respiratory therapy by switching over to Trelegy. She continues use the oxygen with good effect. He was participating in pulmonary rehabilitation when he was sent to the ER. He is going to try to get back to pulmonary rehabilitation at this time. If the patient is not better once he completes the prednisone and would like to restart his lower dose he will call for additional prednisone. 10/15/2023 the patient is here for hospital follow-up visit. Apparently he ended up developing an upper respiratory illness and subsequently worsening worsening respiratory symptoms. He was admitted to the [facility]. Viral swab positive for enterovirus. The patient also was noted to have a chest x-ray perihilar congestion consistent with mild heart failure. He was placed on diuretics. The patient was placed on prednisone. He continue using his BiPAP. He did have a blood gas in the hospital demonstrating chronic hypercarbic respiratory failure. He has been using his AVAP. [employer] is [employer]. Will request a download at this time and further adjust the AVAP accordingly. We did review his imaging studies demonstrating the mild heart failure. The patient understands that he will continue with a low-sodium diet. New continue with current respiratory therapy. 01/02/2024 the patient has a telehealth visit today. Recently he developed COVID-19. The patient does take Eliquis and also he is on antiarrhythmic agents. Therefore we placed him on Mulnopinivir. the patient completed a 5 day course any responded very well to it. His chest congestion is improved his breathing is also improved. Overall he is in recovery. He continues use the noninvasive ventilator at nighttime. He has been affecting beneficial. He does use it for more than 4 hours a night. Will plan to repeat his venous blood gas to assess his CO2 and make sure that is responding well to the noninvasive ventilator. In addition to that he continues use the oxygen. He did use the oxygen more often when was sick with COVID-19. Right now is closer to his baseline. The patient does have increased chest congestion so therefore will go ahead and start him on doxycycline case symptoms worsen. The patient should also have some prednisone available in case develops reactive airway disease after having COVID. At this point he can hold off unless his symptoms worsen as well. Will follow-up in 3-4 months and at that point will review his blood work. 05/31/2024 the patient is here for a pulmonary follow-up visit. Overall the patient has been doing well. He continues uses respiratory therapy with good effect. He has been working on weight loss. He is looking into also participating in the weight loss program. He did take down some information. The meantime he continues using noninvasive ventilator at nighttime. The astral has been affecting beneficial. He did have a repeat blood gas demonstrating his PaCO2 has gone down from 80 mmHg to now 57 mmHg which is excellent. He has been getting supplies readily from the [employer]. He had a last CT scan back in the winter of 2023 still demonstrating the masslike density consistent with developed the atelectasis. Has not changed so is likely to be a benign process. Will discuss further imaging study during the next visit. He continues on the anticoagulation with good effect. Otherwise patient is without any other concerns. 12/06/2024 the patient is here for a pulmonary follow-up visit. Overall the patient seems to be doing fair. He was doing better but then about 3 days ago he started developing worsening shortness of breath and hypoxia. He has been noticing that his oxygen pulse ox has been dipping down to the mid 80s. He had been in the hospital we did review his hospital stay. Actually did see him while he was there and adjusted his noninvasive ventilator while he was there. Seems that the setting some back to his previous ones though we need to increase the pressures. I am going to request access to air view if not send a prescription over to his [employer] company. In the meantime the patient has been having significant amount of weight gain. Likely volume overload at this time resulting in congestive heart failure and worsening hypoxia. He has Lasix 40 mg b.i.d.. Will go ahead and double that to 80 mg b.i.d. for 3 days. He is going to monitor closely his weight. If however his oxygen does not improve or if it worsens he is going to go to the ER for further evaluation. Currently I believe on 4 L and improved his pulse ox to the low 90s. He is going to keep it at 4 L for now. Again, if his symptoms worsen if his hypoxia worsens he needs to go the ER. It become back in 2 weeks so we can reassess. Hopefully we can adjust his astral and he can also make some dietary changes specially since he does take or consume significant amount of sodium in his drinks. [facility] Medical History (Updated 12/06/24 @ 22:39 by Ronak Mills MD) Acute on chronic diastolic (congestive) heart failure Hypoventilation associated with obesity syndrome COPD exacerbation Hx of atrial flutter Obesity DEVIN (obstructive sleep apnea) COPD (chronic obstructive pulmonary disease) Chronic diastolic heart failure Acute exacerbation of chronic obstructive airways disease Hyperthyroidism Venous insufficiency of both lower extremities Chronic respiratory failure Hx pulmonary embolism PAF (paroxysmal atrial fibrillation) Lung mass Surgical History (Updated 11/03/24 @ 13:53 by AMANUEL Mcdonnell) History of esophagogastroduodenoscopy (EGD) H/O cardiac radiofrequency ablation Family History Father Bone cancer Mother COPD (chronic obstructive pulmonary disease) Social History Household Members: Spouse Household Members Other:: Housing: House Do you presently have visiting nurse or other home services: No Unable to assess alcohol history related to: Unknown Alcohol intake: current Alcohol intake frequency: holidays/special occasions only Patient Tobacco Use Status: Former Tobacco user Tobacco use type: Cigarette Cigarette Packs Per Day: 1.5 Cigarettes Per Day: 30.0 Years Smoked: 25 e-Cigarette/Vaping Use: Never Used Second Hand Smoke Exposure: No Advance Directives Date on File: 07/14/23 service: No Current occupational status: employed Cognitive needs: No Hearing needs: No Vision needs: Yes Review of Systems Const Denies fever(s) and Reports weight loss Eyes Denies exophthalmos Card Denies chest pain and Reports dyspnea on exertion Resp Reports chest congestion, Reports cough, Reports dyspnea on exertion and Denies wheezing GI Reports no additional complaints Musc Reports no additional complaints Skin/Breast Denies rash Neuro Reports no additional complaints Venu/Lymph Denies lymphadenopathy Aller/Immun Denies wheezing Physical Exam Vital Signs: Last Vital Signs Pulse 94 12/06/24 13:22 BP 180/86 H 12/06/24 13:22 Pulse Ox 89 L 12/06/24 13:22 Oxygen Delivery Method Nasal Cannula 12/06/24 13:22 Oxygen Flow Rate 4 12/06/24 13:22 BMI result Body Mass Index 48.1 Last Vital Signs Temp 97.6 F 10/23/24 12:00 Pulse 71 10/23/24 12:00 Resp 20 10/23/24 12:00 BP 117/70 10/23/24 12:00 Pulse Ox 90 L 10/23/24 12:00 O2 Del Method BiPAP 10/23/24 12:00 O2 Flow Rate 4 10/23/24 08:00 Oxygen Flow Rate 2 10/18/24 12:52 BMI result Body Mass Index 46.6 Const General: cooperative, comfortable, no acute distress, alert and awake Nutritional Appearance: obese morbidly obese Orientation/consciousness: patient oriented x3 Limitations: no limitations HEENT Head: Yes normocephalic and Yes atraumatic Neck Neck: Yes trachea midline, Yes supple and Yes no JVD Chest Chest palpation & inspection: normal inspection of the chest Resp Effort & Inspection: normal respiratory effort Auscultation: diminished lung sounds Cardio Jugular venous distension: no JVD Palpation: normal PMI Rate: regular rate Rhythm: regular rhythm Heart sounds: S1 normal heart sound present, S2 normal heart sound present, no click, no gallops and no murmurs GI Auscultation: normal bowel sounds Skin General skin exam: no rashes or lesions noted Neuro General: patient oriented x3 and no focal motor deficits Extrem General: Yes no clubbing, cyanosis or edema Psych Appearance: grossly normal Results Reviewed Results Reviewed: personally reviewed [facility] 10/2024 Assessment & Plan Assessment & Plan (1) Acute and chronic respiratory failure: Code(s): J96.20 - Acute and chronic respiratory failure, unspecified whether with hypoxia or hypercapnia Category: Medical Qualifiers: Respiratory failure complication: hypoxia Qualified Code(s): J96.21 - Acute and chronic respiratory failure with hypoxia (2) COPD (chronic obstructive pulmonary disease): Comment: Severe on supplemental O2 and BiPAP, follow-up with pulmonology Code(s): J44.9 - Chronic obstructive pulmonary disease, unspecified Category: Medical Qualifiers: COPD type: COPD with acute exacerbation Qualified Code(s): J44.1 - Chronic obstructive pulmonary disease with (acute) exacerbation (3) Chronic respiratory failure: Comment: on supplemental O2 PRN Code(s): J96.10 - Chronic respiratory failure, unspecified whether with hypoxia or hypercapnia Category: Medical Qualifiers: Respiratory failure complication: hypoxia and hypercapnia Qualified Code(s): J96.11 - Chronic respiratory failure with hypoxia; J96.12 - Chronic respiratory failure with hypercapnia (4) Hx pulmonary embolism: Comment: 2013, on lifetime anticoagulation Code(s): Z86.711 - Personal history of pulmonary embolism Category: Medical (5) Sleep apnea: Code(s): G47.30 - Sleep apnea, unspecified Category: Medical Qualifiers: Sleep apnea type: obstructive Qualified Code(s): G47.33 - Obstructive sleep apnea (adult) (pediatric) (6) Lung mass: Code(s): R91.8 - Other nonspecific abnormal finding of lung field Category: Medical (7) Hypoventilation associated with obesity syndrome: Code(s): E66.2 - Morbid (severe) obesity with alveolar hypoventilation Category: Medical Plan continue Dulera Continue Daliresp REY as needed continue oxygen supplementation, increase 4l/min to keep pox>87% Astral AVAPS at night, will request a download from his [employer] ([employer]), need acess to adjust pressures continue Eliquis diureses as tolerated, double dose (80mg BID) x 5 days, then return to 40mg BID lung mass likely rounded atelectasis associated with a calcified pleural plaque F/U 2 weeks Will go to the ED if worsens or no better Coding Level of Care Code Est Pt Level 5 (07765) Diagnoses Acute on chronic respiratory failure with hypoxia J96.21 Respiratory failure complication: hypoxia Chronic obstructive pulmonary disease with acute exacerbation J44.1 COPD type: COPD with acute exacerbation Chronic respiratory failure with hypoxia and hypercapnia J96.11; J96.12 Respiratory failure complication: hypoxia and hypercapnia Hx pulmonary embolism Z86.711 Obstructive sleep apnea syndrome G47.33 Sleep apnea type: obstructive Lung mass R91.8 Hypoventilation associated with obesity syndrome E66.2 Time Spent (min) 30
[2024-12-06 13:16] VITALS: O2SAT 73; BMI 48.1
[2024-12-06 13:22] VITALS: BP 180/86; PULSE 94; O2SAT 89
--- OUTSIDE RECORDS SUMMARY | 2024-12-06 15:24 | XMS_ITS ---
Author Organization [facility] Address [address] [place] [address] Care Team Providers Care Retort Fireman Name Role Phone Alea Hull MD Primary Care Provider Hector Brown Unavailable [phone] Allergies No Known Allergies REASON FOR VISIT Wart(s) Medications Medication SIG (Take, Route, Frequency, Duration) Notes Start Date End Date Status Albuterol Sulfate 2.5 MG/0.5ML as directed Inhalation Unkno wn Spiriva Respimat 2.5 MCG/ACT 2 puffs Inhalation Once a day Unknown Albuterol Sulfate 108 (90 Base) MCG/ACT 1 puff as needed Inhalation every 4 hrs Unknown [place] 3 1000 MG 1 capsule Orally Onc [...] 03/03/2024 Encounters Encounter Location Date Provider Diagnosis [facility] [place] [address] [place] [address] 03/03/2024 Hector Rodriguez Right foot pain M79.671 [...] Notes * Mario DOLANDOB:1960 (63 yo M)Acc No.[id number]:03/03/2024 Progress Note Patient:?Mario Dolan Provider:?Hector Rodriguez DPM :1960???Age:63 Y???Sex:Male John Paul e:03/03/2024 Address:[address] [place], [place] [id number] Pcp:Alea Hull MD Subjective: * Chief Complaints: [...] History:? * Surgical History:?cardiac ra diofrequency ablasion [facility]- Left leg surgery 01/12/24 * Hospitalization/Major Diagno stic Procedure:?[facility] copd 10/2023 [facility] - fell 01/12/24 * Family History:?Mother: tye [...] before morning meal Orally Once a dayUnknown [place] 3 1000 MG Capsule 1 capsule Orally [...] DPM Date:? 024 Generated for Prashanthi katie/Makayla/eTransmitting on:?12/06/2024 03:24 PM EST History and Physical Notes * [...]
--- OUTSIDE RECORDS SUMMARY | 2024-12-06 15:25 | XMS_ITS ---
Author Organization [facility] Address [address] [place] [address] Care Team Providers Care Seam Press Operator Name Role Phone Alea Hull MD Primary Care Provider Hector Brown Unavailable [phone] Lillian Matias Unavailable [phone] Encounters Encounter Location Date Provider Diagnosis [address] [address] 01/28/2024 Lillian Matias Plan Of Treatment No Information Progress Notes * Mario DOLANDOB:1960 (64 yo M)Acc No.[id number]:01/28/2024 Progress Notes Patient:?Mario DOLAN Provider:?Lillian Matias DPM :1960???Age:63 Y???Sex:Male John Paul e:01/28/2024 Address:[address] [place], [place] [id number] Pcp:Alea Hull MD Subjective: * Chief Complaints: [...] Matias DPM Date:? Generated for Carly wilson/Makayla/eTransmitting on:?12/06/2024 03:24 PM EST
--- OUTSIDE RECORDS SUMMARY | 2024-12-06 15:25 | XMS_ITS | Patient Health Record ---
[facility] Address [address] [place] [address] Care Team Providers Care Director Of Rehabilitation Name Role Phone Alea Hull MD Primary Care Provider UnavailHector Villarreal Unavailable [phone] Lillian Matias Unavailable [phone] Allergies No Known Allergies Reason For Referral [...] 1 tablet Orally Once a day Active Lorimor 3 1000 MG 1 capsule Orally Onc [...] 03/03/2024 Encounters Encounter Location Date Provider Diagnosis [facility] [address] [address] 03/03/2024 Hector Rodriguez Right foot pain M79.671 ; Ingrown nail L60.0 and Dystrophic nail L60.[address] [facility] [address] 01/01/2024 Lillian Matias [facility] [address] [address] 01/23/2024 Hector Rodriguez Assessments Encounter Date Diagnosis (ICD Code) Assessment Notes Treatment Notes Treatment Clinical Notes Section Notes 03/03/2024 Ingrown nail (ICD-10 - L60.0) 03/03/2024 Right foot pain (ICD-10 - M79.671) 03/03/2024 Dystrophic nail (ICD-10 - L60.3) Plan Of Treatment No Information Insurance Providers Payer Name Payer Address Payer Phone Subscriber Number Group Number Insured Name Patient Relationship to Insured Coverage Start Date Coverage End Date [facility] [employer] [address] [place] [address] [phone] [id number] Lissy Bill Spouse - patient is [...] leg surgery 01/12/24 Hospitalization History Reason Date(Month/[place] [facility] [place] [facility] - [place] 01/12/24
--- OUTSIDE RECORDS SUMMARY | 2024-12-06 15:25 | XMS_ITS ---
Author Organization [facility] Address [address] [place] [address] Care Team Providers Care Furniture Assembler And Installer Name Role Phone Alea Hull MD Primary Care Provider Hector Brown [phone] REASON FOR VISIT Reschedule Encounters Encounter Location Date Provider Diagnosis [facility] [address] [place] [address] 01/23/2024 Hector Rodriguez Plan Of Treatment No Information Progress Notes * Mario DOLANDOB:1960 (63 yo M)Acc No.[id number]:01/23/2024 Patient:?Mario Dolan :1960???Age:63 Y???Sex:Male Address:[address] [place] [address] * true * Date:? Generated for Prashanthi katie/Makayla/eTransmitting on:?12/06/2024 03:24 PM EST
== END 2024-12-06 13:45 | disposition home or self-care (01) ==
PROVIDERS: PCP Internal Medicine; Visit Provider Hospitalist
DX: J96.21 Acute and chronic respiratory failure with hypoxia (principal); J44.1 Chronic obstructive pulmonary disease with (acute) exacerbation; J96.12 Chronic respiratory failure with hypercapnia; Z86.711 Personal history of pulmonary embolism; G47.33 Obstructive sleep apnea (adult) (pediatric); R91.8 Other nonspecific abnormal finding of lung field; E66.2 Morbid (severe) obesity with alveolar hypoventilation
CPT/HCPCS: 99214

== ENCOUNTER → 2024-12-06 13:13 | Outpatient (BNVA) | payer BC, SELFPAY | PROVIDERS: PCP Internal Medicine; Visit Provider Hospitalist ==

== ENCOUNTER 2024-12-23 13:17 | Outpatient (AMB) | payer BC, SELFPAY ==
--- NOTE | 2024-12-23 13:20 | A.OFFVIS_ITS ---
Vital Signs 12/23/24 13:21 Height 5 ft 11 in Weight 341 lb 11.464 oz BMI 47.7 BP 184/88 H Blood Pressure Location Lt brachial Position Sitting Pulse 74 Pulse Source Pulse Oximeter Pulse Oximetry (%) 90 L Oxygen Delivery Method Nasal Cannula Oxygen Flow Rate 3 Intake Visit Reasons: COPD Allergies No Known Allergies Allergy (Verified 12/23/24 13:23) HPI Comments Details: The patient is a 64 y/o man with a PMH morbid obesity, chronic hypoxic respiratory failure due to COPD, OHS, DEVIN, chronic diastolic chf, htn, paroxysmal afib s/p ablation, hyperthyroid, history of pe, presented with dyspnea to the [facility] ED in early July. The patient states his sob has been getting progressively worse over last 2 months. initially on exertion, now at rest. has been needing to increase his home o2 supplement. recent PFTs may 2023 showed severe obstruction with FEV1 - 21%. The patient typically responds well to prednisone. He started feeling better. During the hospitalization he did have an ABG demonstrating a chronic hypercarbic respiratory failure secondary to likely has advanced COPD. He does use a BiPAP or a noninvasive ventilator at home. Will try to get a download from his [employer] company, [employer]. In the meantime he is completing the prednisone taper. Will go ahead and optimize his respiratory therapy by switching over to Trelegy. She continues use the oxygen with good effect. He was participating in pulmonary rehabilitation when he was sent to the ER. He is going to try to get back to pulmonary rehabilitation at this time. If the patient is not better once he completes the prednisone and would like to restart his lower dose he will call for additional prednisone. 10/15/2023 the patient is here for hospital follow-up visit. Apparently he ended up developing an upper respiratory illness and subsequently worsening worsening respiratory symptoms. He was admitted to the [facility]. Viral swab positive for enterovirus. The patient also was noted to have a chest x-ray perihilar congestion consistent with mild heart failure. He was placed on diuretics. The patient was placed on prednisone. He continue using his BiPAP. He did have a blood gas in the hospital demonstrating chronic hypercarbic respiratory failure. He has been using his AVAP. [employer] is [employer]. Will request a download at this time and further adjust the AVAP accordingly. We did review his imaging studies demonstrating the mild heart failure. The patient understands that he will continue with a low-sodium diet. New continue with current respiratory therapy. 01/02/2024 the patient has a telehealth visit today. Recently he developed COVID-19. The patient does take Eliquis and also he is on antiarrhythmic agents. Therefore we placed him on Mulnopinivir. the patient completed a 5 day course any responded very well to it. His chest congestion is improved his breathing is also improved. Overall he is in recovery. He continues use the noninvasive ventilator at nighttime. He has been affecting beneficial. He does use it for more than 4 hours a night. Will plan to repeat his venous blood gas to assess his CO2 and make sure that is responding well to the noninvasive ventilator. In addition to that he continues use the oxygen. He did use the oxygen more often when was sick with COVID-19. Right now is closer to his baseline. The patient does have increased chest congestion so therefore will go ahead and start him on doxycycline case symptoms worsen. The patient should also have some prednisone available in case develops reactive airway disease after having COVID. At this point he can hold off unless his symptoms worsen as well. Will follow-up in 3-4 months and at that point will review his blood work. 05/31/2024 the patient is here for a pulmonary follow-up visit. Overall the patient has been doing well. He continues uses respiratory therapy with good effect. He has been working on weight loss. He is looking into also participating in the weight loss program. He did take down some information. The meantime he continues using noninvasive ventilator at nighttime. The astral has been affecting beneficial. He did have a repeat blood gas demonstrating his PaCO2 has gone down from 80 mmHg to now 57 mmHg which is excellent. He has been getting supplies readily from the [email or web address]. He had a last CT scan back in the winter of 2023 still demonstrating the masslike density consistent with developed the atelectasis. Has not changed so is likely to be a benign process. Will discuss further imaging study during the next visit. He continues on the anticoagulation with good effect. Otherwise patient is without any other concerns. 12/06/2024 the patient is here for a pulmonary follow-up visit. Overall the patient seems to be doing fair. He was doing better but then about 3 days ago he started developing worsening shortness of breath and hypoxia. He has been noticing that his oxygen pulse ox has been dipping down to the mid 80s. He had been in the hospital we did review his hospital stay. Actually did see him while he was there and adjusted his noninvasive ventilator while he was there. Seems that the setting some back to his previous ones though we need to increase the pressures. I am going to request access to air view if not send a prescription over to his [employer] company. In the meantime the patient has been having significant amount of weight gain. Likely volume overload at this time resulting in congestive heart failure and worsening hypoxia. He has Lasix 40 mg b.i.d.. Will go ahead and double that to 80 mg b.i.d. for 3 days. He is going to monitor closely his weight. If however his oxygen does not improve or if it worsens he is going to go to the ER for further evaluation. Currently I believe on 4 L and improved his pulse ox to the low 90s. He is going to keep it at 4 L for now. Again, if his symptoms worsen if his hypoxia worsens he needs to go the ER. It become back in 2 weeks so we can reassess. Hopefully we can adjust his astral and he can also make some dietary changes specially since he does take or consume significant amount of sodium in his drinks. 12/23/2024 the patient is here for a pulmonary follow-up visit. The patient is still struggling with his noninvasive ventilator. The pressures are not high enough. We did send a prescription to the [email or web address] but they have not adjusted as of yet. He did bring his machine in a did evaluated. Seems like he has to patient's settings P1 and P2 and therefore even though we had adjusted in the hospital he is using the different setting. Therefore I adjusted both. I have to reach out to [facility] so they can raise P 1. We did increase his minimum pressure to 10 from 5 increased his maximum pressure to 22 from 10. Also changed his auto EPAP to 8-10. The patient has respiratory rate was increased from 15-16. He did try the off any seem to tolerated okay. Breathing is better. His monitoring closely his weight and is taking his diuretics. He will go ahead and have blood work including a blood gas the coming days. Will adjust his noninvasive accordingly. [facility] Medical History (Updated 12/06/24 @ 22:39 by Ronak Mills MD) Acute on chronic diastolic (congestive) heart failure Hypoventilation associated with obesity syndrome COPD exacerbation Hx of atrial flutter Obesity DEVIN (obstructive sleep apnea) COPD (chronic obstructive pulmonary disease) Chronic diastolic heart failure Acute exacerbation of chronic obstructive airways disease Hyperthyroidism Venous insufficiency of both lower extremities Chronic respiratory failure Hx pulmonary embolism PAF (paroxysmal atrial fibrillation) Lung mass Surgical History (Updated 11/03/24 @ 13:53 by AMANUEL Mcdonnell) History of esophagogastroduodenoscopy (EGD) H/O cardiac radiofrequency ablation Family History Father Bone cancer Mother COPD (chronic obstructive pulmonary disease) Social History Household Members: Spouse Household Members Other:: Housing: House Do you presently have visiting nurse or other home services: No Unable to assess alcohol history related to: Unknown Alcohol intake: current Alcohol intake frequency: holidays/special occasions only Patient Tobacco Use Status: Former Tobacco user Tobacco use type: Cigarette Cigarette Packs Per Day: 1.5 Cigarettes Per Day: 30.0 Years Smoked: 25 e-Cigarette/Vaping Use: Never Used Second Hand Smoke Exposure: No Advance Directives Date on File: 07/14/23 service: No Current occupational status: employed Cognitive needs: No Hearing needs: No Vision needs: Yes Review of Systems Const Denies fever(s) and Reports weight loss Eyes Denies exophthalmos Card Denies chest pain and Reports dyspnea on exertion Resp Reports chest congestion, Reports cough, Reports dyspnea on exertion and Denies wheezing GI Reports no additional complaints Musc Reports no additional complaints Skin/Breast Denies rash Neuro Reports no additional complaints Venu/Lymph Denies lymphadenopathy Aller/Immun Denies wheezing Physical Exam Vital Signs: Last Vital Signs Pulse 74 12/23/24 13:21 BP 184/88 H 12/23/24 13:21 Pulse Ox 90 L 12/23/24 13:21 Oxygen Delivery Method Nasal Cannula 12/23/24 13:21 Oxygen Flow Rate 3 12/23/24 13:21 BMI result Body Mass Index 47.7 Last Vital Signs Temp 97.6 F 10/23/24 12:00 Pulse 71 10/23/24 12:00 Resp 20 10/23/24 12:00 BP 117/70 10/23/24 12:00 Pulse Ox 90 L 10/23/24 12:00 O2 Del Method BiPAP 10/23/24 12:00 O2 Flow Rate 4 10/23/24 08:00 Oxygen Flow Rate 2 10/18/24 12:52 BMI result Body Mass Index 46.6 Const General: cooperative, comfortable, no acute distress, alert and awake Nutritional Appearance: obese morbidly obese Orientation/consciousness: patient oriented x3 Limitations: no limitations HEENT Head: Yes normocephalic and Yes atraumatic Neck Neck: Yes trachea midline, Yes supple and Yes no JVD Chest Chest palpation & inspection: normal inspection of the chest Resp Effort & Inspection: normal respiratory effort Auscultation: diminished lung sounds Cardio Jugular venous distension: no JVD Palpation: normal PMI Rate: regular rate Rhythm: regular rhythm Heart sounds: S1 normal heart sound present, S2 normal heart sound present, no click, no gallops and no murmurs GI Auscultation: normal bowel sounds Skin General skin exam: no rashes or lesions noted Neuro General: patient oriented x3 and no focal motor deficits Extrem General: Yes no clubbing, cyanosis or edema Psych Appearance: grossly normal Assessment & Plan Assessment & Plan (1) COPD (chronic obstructive pulmonary disease): Comment: Severe on supplemental O2 and BiPAP, follow-up with pulmonology Code(s): J44.9 - Chronic obstructive pulmonary disease, unspecified Category: Medical Qualifiers: COPD type: COPD with acute exacerbation Qualified Code(s): J44.1 - Chronic obstructive pulmonary disease with (acute) exacerbation (2) Chronic respiratory failure: Comment: on supplemental O2 PRN Code(s): J96.10 - Chronic respiratory failure, unspecified whether with hypoxia or hypercapnia Category: Medical Qualifiers: Respiratory failure complication: hypoxia and hypercapnia Qualified Code(s): J96.11 - Chronic respiratory failure with hypoxia; J96.12 - Chronic respiratory failure with hypercapnia (3) Hx pulmonary embolism: Comment: 2013, on lifetime anticoagulation Code(s): Z86.711 - Personal history of pulmonary embolism Category: Medical (4) Sleep apnea: Code(s): G47.30 - Sleep apnea, unspecified Category: Medical Qualifiers: Sleep apnea type: obstructive Qualified Code(s): G47.33 - Obstructive sleep apnea (adult) (pediatric) (5) Lung mass: Code(s): R91.8 - Other nonspecific abnormal finding of lung field Category: Medical (6) Hypoventilation associated with obesity syndrome: Code(s): E66.2 - Morbid (severe) obesity with alveolar hypoventilation Category: Medical Plan continue Dulera Continue Daliresp REY as needed continue oxygen supplementation, increase 4l/min to keep pox>87% Astral AVAPS at night, adjusted min PS 10;maxPS22, aEPAP 8-10, RR15->16 continue Eliquis diureses as tolerated lung mass likely rounded atelectasis associated with a calcified pleural plaque bloodwok, VBG F/U 6-8 weeks Orders: Orders Basic Metabolic Panel Today J96.21 - Acute and chronic respiratory failure with hypoxia Venous Blood Gas Today J96.21 - Acute and chronic respiratory failure with hypoxia Coding Level of Care Code Tele New Pt Level 5 (68810) Diagnoses Chronic obstructive pulmonary disease with acute exacerbation J44.1 COPD type: COPD with acute exacerbation Chronic respiratory failure with hypoxia and hypercapnia J96.11; J96.12 Respiratory failure complication: hypoxia and hypercapnia Hx pulmonary embolism Z86.711 Obstructive sleep apnea syndrome G47.33 Sleep apnea type: obstructive Lung mass R91.8 Hypoventilation associated with obesity syndrome E66.2 Time Spent (min) 30
[2024-12-23 13:21] VITALS: BP 184/88; PULSE 74; O2SAT 90; BMI 47.7
--- OUTSIDE RECORDS SUMMARY | 2024-12-23 15:38 | XMS_ITS | Data Portability ---
Author Organization [facility] Address [address] [facility] [place] [address] Care Team Providers Care Office Equipment Technician Name Role Phone ALLY HAYNES Lead Setter DREW HUERTA Electric Motor Mechanic Assessment Encounter Date Assessment Date Assessment LastModified by Organization Details LastModified Time 03/05/2022 03/05/2022 At this point no intervention is warranted. The patient gets new compression stockings every 3 months and should continue to do so. I do not feel there is a need for hypercoagulable workup since the patient needs to be on lifelong anticoagulation for cardiac issues. In his overall health we did discuss the possibility of him having a sleeper section for weight loss I have recommended he see Dr. Agustín Wooten we sent a referral for possible telehealth interview. I also mentioned to the patient that since he has a smoking history of over 100 cigarettes he does qualify for a screening ultrasound when he reaches 66. [email or web address] Not available 03/05/2022 10:34:21 Plan of Treatment Reminders Order Date Submit Date Provider Last Modified By Organization Details Last Modified Time Details Appointments None recorded . Lab TSH, serum or plasma 2021 022 [facility], [address] [place] [address], [id number], 22:12:14 T4, free, serum 2021 022 [facility], [address] [place] [address], [id number], 22:12:15 Referral noé maier surgery referral 2021 022 [email or web address] Not available 10:54:01 Procedures None recorded . Surgeries None recorded . Imaging electroc ardiogra m 2021 022 [email or web address] In-House Order For Marcus Provider, For Internal Use Only, 12:23:43 electroc ardiogra m 2021 022 [email or web address] In-House Order For Karissa Provider, For Internal Use Only, 09:09:01 electroc ardiogra m 2022 023 [email or web address] In-House Order For Marcus Provider, For Internal Use Only, 09:08:13 Medication Orders None recorded . Patient TargetsNo targets recorded. Patient InstructionsNo instructions recorded. Reason for Referral Bariatric Surgery Referral f or Morbid obesity Referring Physician: Geni Mcghee, Vascular Surgery, Encounter Date: 03/05/2022 Results Created Date Observation Date Name Description Value Unit Range Abnormal Flag Note LastModifiedBy Organization Detail LastModifiedTime 03/27/2003/27/2022 TSH TSH 1.55 mIU/L 0.40-4 .50 normal Not Available [facility] [address] [place], [address], 03/27/2022 22:12:14 03/27/20 22 03/27/2022 T4, FREE T4, free 1.6 NG/dL 0.8-1. 8 normal Not Available [facility] [address], [address], 03/27/2022 22:12:15 12/24/19 22 12/24/2021 elect doug maldonado am No observ ation record ed. [email or web address] In-House Order For Karissa Provider For Internal Use Only, 12/24/2021 12:23:42 12/31/19 22 12/24/2021 CT, angio gram, chest , w/o contr ast No observ ation record ed. jennifer [facility] (Radiology) [address] , [place], [address], 12/31/2021 17:27:21 01/24/20 22 12/24/2021 elect rocar diogr am No observ ation record ed. BARCODE In-House Order For Karissa Provider For Internal Use Only, [id number] 01/24/2022 19:27:37 02/14/20 22 01/20/2022 US, lower extre mity No observ ation record ed. BARCODE Not Available 2021 11:54:31 02/27/20 22 02/22/2022 US, rodolfo x, sylwia s, lower extre mity No observ ation record ed. BARCODE Not Available 2021 11:40:31 06/17/20 22 06/17/2022 elect rocar diogr am No observ ation record ed. [email or web address] In-House Order For Karissa Provider For Internal Use Only, 06/17/2022 09:08:16 12/30/19 23 12/30/2022 elect rocar diogr am No observ ation record ed. [email or web address] In-House Order For Marcus Provider For Internal Use Only, 12/30/2022 09:07:46 12/31/19 23 elect rocar diogr am No observ ation record ed. [email or web address] In-House Order For Karissa Provider For Internal Use Only, 12/31/2022 11:06:23 Result Notes None recorded. Problems Name Problem SNOMED Code Status Onset Date Resolution Date Notes Provider Name and Address Organization Details Recorded Time Atrial fibrillation and flutter 186138580 Active Not Available [facility] 2 04:02:30 Lumbar radiculopathy 272363752 Active Not Available [facility] 2 04:02:30 History of deep vein thrombosis 780005862 Active Not Available [facility] 2 04:02:30 History of pulmonary embolus 257881099 Active Not Available [facility] 2 04:02:31 Anemia 030409025 Active Not Available [facility] 2 04:02:30 Essential hypertension 59681035 Active 2018 Not Available [facility] 2 04:02:31 Acute pulmonary embolism 304721487 Active Other Not Available [facility] 2 04:02:30 Peripheral edema 729596081 Active 2019 Not Available [facility] 2 04:02:30 Superficial thrombophlebi tis 6692703 Active 2021 Not Available [facility] 2 04:02:31 Problem Notes None recorded. Procedures Surgical History Date Name Laterality Status Provider Name and Address Organization Details Recorded Time 12/13/19 22 TeleHealth Visit completed ALLY HAYNES MD [address] [place] [address], [phone], [facility] 12/13/2021 07:20:33 09/04/20 21 TeleHealth Visit completed ALLY HAYNES MD [address] [place] [address], [phone], [facility] 09/04/2021 07:18:26 03/25/20 14 Diagnostic colonoscopy completed Not Available [facility] 11/01/2015 03:34:03 03/24/20 14 Egd diagnostic brush wash completed Not Available [facility] 11/01/2015 03:34:03 other completed Jackie Chen [facility] 08/26/2016 10:39:29 appendectomy completed Jackie Chhay [facility] 08/26/2016 10:39:29 Imaging Results Imaging Date Name Status LastModified by Organization Details LastModified Time 12/24/2021 electrocardiogram completed [email or web address] Order For Marcus Provider For Internal Use Only, [id number] 12/24/2021 12:23:42 12/24/2021 CT, angiogram, chest, w/o contrast completed jennifer [facility] (Radiology) [address], [facility] [place] Wong, [address], 12/31/2021 17:27:21 12/24/2021 electrocardiogram completed [facility] In-Hous e Order For Karissa Provider For Internal Use Only, [id number] 01/24/2022 19:27:37 01/20/2022 US, lower extremity completed BARCODE Infor mation not available 02/13/2022 11:54:31 02/22/2022 US, duplex, venous, lower extremity completed [facility] Information not available 02/26/2022 11:40:31 06/17/2022 electrocardiogram completed barkin In-Hous e Order For Karissa Provider For Internal Use Only, [id number] 06/17/2022 09:08:16 12/30/2022 electrocardiogram completed barkin In-Hous e Order For Marcus Provider For Internal Use Only, 12/30/2022 09:07:46 12/31/2022 electrocardiogram completed [email or web address] In-Hous e Order For Karissa Provider For Internal Use Only, 12/31/2022 11:06:23 Procedure Notes None recorded. Medical Equipment None Reported. Allergies No known drug allergies Medications Name Sig Start Date Stop Date Status Note LastModified by Organization Details LastModified Time Prescript ion - Clarifica tion 02/26 completed Not Available Not Available Not Available Prescript ion - New 02/26 completed Not Available Not Available Not Available cyclobenz aprine 10 mg tablet active Not Available Not Available No t Available furosemid e 40 mg tablet TAKE 1 TABLET TWICE A DAY BY ORAL ROUTE FOR 90 DAYS. active Not Available Not Available No t Available acetamino phen 325 mg tablet Take 2 tablets every 6 hours by oral route. 01/23 completed Not Available Not Available Not Available prednison e 10 mg tablet TAKE 4 TABLETS BY MOUTH EVERY MORNING X2DAYS [id number], 7G7IESN, 7S1GICR THEN OFF 12/24 completed Not Available Not Available Not Available doxycycli ne hyclate 100 mg capsule TAKE 1 CAPSULE BY MOUTH TWICE A DAY FOR 7 DAYS 06/17 completed Not Available Not Available Not Available cefuroxim e axetil 250 mg tablet 07/20 completed Not Available Not Available Not Available ipratropi um 0.5 mg-albute rol 3 mg (2.5 mg base)/3 mL nebulizat ion soln 12/24 completed Not Available Not Available Not Available albuterol sulfate 2.5 mg/3 mL (0.083 %) solution for nebulizat ion Inhalati on as directed active Not Available Not Available No t Available cefpodoxi me 200 mg tablet 01/20 completed Not Available Not Available Not Available azithromy maria ines 250 mg tablet TAKE 2 TABLETS BY MOUTH TODAY, THEN TAKE 1 TABLET DAILY FOR 4 DAYS active Not Available Not Available No t Available ibuprofen 800 mg tablet active Not Available Not Available Not Available amiodaron e 200 mg tablet TAKE 1 TABLET DAILY active Not Available Not Available No t Available metoprolo l succinate ER 50 mg tablet,ex tended release 24 hr 12/02 completed Not Available Not Available Not Available warfarin 10 mg tablet active Not Available Not Available Not Available diltiazem CD 240 mg capsule,e xtended release 24 hr TAKE 1 CAPSULE DAILY active Not Available Not Available No t Available prednison e 20 mg tablet TAKE 3 TABLETS BY MOUTH ONCE DAILY active Not Available Not Available No t Available metoprolo l succinate ER 100 mg tablet,ex tended release 24 hr TAKE 1 TABLET DAILY active Not Available Not Available No t Available Vitamin E Complex 1,000 unit capsule Take 1 capsule every day by oral route. 12/02 completed Not Available Not Available Not Available Clobetaso l 17 Propionat e 0.5 % powder 01/20 completed Not Available Not Available Not Available clobetaso l 0.05 % topical cream 12/02 completed Not Available Not Available Not Available diltiazem ER 240 mg capsule,2 4 hr,extend ed release Take 1 capsule every day by oral route. 01/20 completed Not Available Not Available Not Available amlodipin e 5 mg tablet 07/20 completed Not Available Not Available Not Available doxycycli ne monohydra te 100 mg tablet 01/20 completed Not Available Not Available Not Available oxycodone -acetamin ophen 5 mg-325 mg tablet TAKE 1 TO 2 TABLETS BY MOUTH EVERY 4 HOURS NEEDED FOR PAIN 12/24 completed Not Available Not Available Not Available lorazepam 0.5 mg tablet 07/20 completed Not Available Not Available Not Available methocarb jefferson 750 mg tablet 12/02 completed Not Available Not Available Not Available Dovonex 0.005 % topical ointment APPLY A THIN LAYER TO THE AFFECTED AREA(S) BY TOPICAL ROUTE ONCE DAILY ; RUB IN GENTLY AND COMPLETE LY 01/20 completed Not Available Not Available Not Available oxycodone -acetamin ophen 10 mg-325 mg tablet Take 1 tablet every 6 hours by oral route. 03/08 completed Not Available Not Available Not Available Cardizem CD 240 mg/24hr capsule,e xtended release Take 1 capsule every day by oral route. 12/02 completed Not Available Not Available Not Available benzonata te 100 mg capsule Take 1 capsule 3 times a day by oral route. 07/20 completed Not Available Not Available Not Available cephalexi n 500 mg capsule TAKE 1 CAPSULE BY MOUTH TWICE A DAY FOR 7 DAYS 12/24 completed Not Available Not Available Not Available pantopraz ole 40 mg tablet,de layed release active Not Available Not Available Not Available oseltamiv ir 75 mg capsule 12/02 completed Not Available Not Available Not Available calcipotr iene 0.005 % topical cream Apply 1 applicat ion every day by topical route. 12/02 completed to affected area Not Available Not Available Not Available warfarin 2 mg tablet active Not Available Not Available Not Available warfarin 5 mg tablet active Not Available Not Available Not Available flecainid e 50 mg tablet active Not Available Not Available Not Available metoprolo l tartrate 50 mg tablet 01/20 completed Not Available Not Available Not Available methimazo le 5 mg tablet TAKE 0.5 TABLETS BY MOUTH EVERY DAY FOR 90 DAYS. active Not Available Not Available No t Available omeprazol e 20 mg capsule,d elayed release Take 1 capsule every day by oral route. active Not Available Not Available No t Available vitamin B complex tablet Orally as directed active Not Available Not Available No t Available enoxapari n 150 mg/mL subcutane ous syringe active Not Available Not Available Not Available codeine 10 mg-guaife nesin 100 mg/5 mL oral liquid 01/20 completed Not Available Not Available Not Available prednisol one 15 mg/5 mL oral solution 12/02 completed Not Available Not Available Not Available hydrochlo rothiazid e 25 mg tablet Take 1 tablet every day by oral route. 01/20 completed Not Available Not Available Not Available mupirocin 2 % topical ointment APPLY TO THE NASAL CAVITY TWICE A DAY AFTER DRYING IT THOROUGH LY FOR A TOTAL OF 10 DAYS 12/24 completed Not Available Not Available Not Available azelastin e 137 mcg (0.1 %) nasal spray active Not Available Not Available Not Available methylpre dnisolone 4 mg tablets in a dose pack 12/02 completed Not Available Not Available Not Available albuterol sulfate HFA 90 mcg/actua tion aerosol inhaler Inhale 2 puffs every 4 hours by inhalati on route. active Not Available Not Available No t Available fluticaso ne propionat e 50 mcg/actua tion nasal spray,moises pension [place] 1 spray every day by nasal route. 12/02 completed Not Available Not Available Not Available doxycycli ne hyclate 100 mg tablet 12/02 completed Not Available Not Available Not Available naproxen 500 mg tablet 12/02 completed Not Available Not Available Not Available amoxicill in 875 mg-potass ium clavulana te 125 mg tablet 08/28 completed Not Available Not Available Not Available oxycodone 5 mg tablet 01/20 completed Not Available Not Available Not Available diltiazem 90 mg tablet Take 1 tablet 3 times a day by oral route. 07/20 completed Not Available Not Available Not Available Mucinex 600 mg tablet, extended release Take 1 tablet every 12 hours by oral route. 01/20 completed Not Available Not Available Not Available azithromy maria ines 500 mg tablet TAKE 1 TABLET BY MOUTH DAILY 12/24 completed Not Available Not Available Not Available Vitamin D3 25 mcg (1,000 unit) capsule Take by oral route. active Not Available Not Available No t Available Spiriva with [employer] r 18 mcg and inhalatio n capsules Inhale 1 capsule every day by inhalati on route. active Not Available Not Available No t Available vitamin E active Not Available Not Cierra ilable Not Available omeprazol e 07/20 completed Not Available Not Available Not Available prednison e tapered pack for cold symptoms 12/02 completed Not Available Not Available Not Available Multivita mins 12/24 completed Not Available Not Available Not Available benzonata te 01/20 completed Not Available Not Available Not Available Horizon Nasal Cpap System 12/24 completed Not Available Not Available Not Available olopatadi ne 0.2 % eye drops 12/02 completed Not Available Not Available Not Available Symbicort 160 mcg-4.5 mcg/actua tion HFA aerosol inhaler active Not Available Not Available Not Available Symbicort 80 mcg-4.5 mcg/actua tion HFA aerosol inhaler Inhale 2 puffs twice a day by inhalati on route. 12/02 completed Not Available Not Available Not Available GaviLyte- N 420 gram oral solution 12/02 completed Not Available Not Available Not Available azelastin e 205.5 mcg (0.15 %) nasal spray [place] 1 spray twice a day by intranas al route. 12/24 completed Not Available Not Available Not Available Probiotic 01/20 completed Not Available Not Available Not Available roflumila st 500 mcg tablet Take 1 tablet every day by oral route. active Not Available Not Available No t Available Xarelto 15 mg tablet active Not Available Not Available Not Available Xarelto 20 mg tablet active Not Available Not Available Not Available metoprolo l succ 25 mg-hydroc hlorothia zide 12.5 mg tablet,ex t.rel 24 hr Take 1 tablet 3 times a day by oral route. 01/20 completed Not Available Not Available Not Available Eliquis 5 mg tablet TAKE 1 TABLET TWICE A DAY active Not Available Not Available No t Available Spiriva Respimat 2.5 mcg/actua tion solution for inhalatio n active Not Available Not Available Not Available Afluria 9962-2204 (PF) 45 mcg (15 mcg x 3)/0.5 mL IM syringe 12/02 completed Not Available Not Available Not Available sildenafi l (antihype rtensive) 20 mg tablet Take 1 tablet 3 times a day by oral route. 07/20 completed Not Available Not Available Not Available Flowflex COVID-19 Antigen Home Test kit FOLLOW INSTRUCT IONS INCLUDED WITH THE PACKAGE. active Not Available Not Available No t Available Vitals Date Recorded Body height Provider Name an d Address Organization Details Last Updated DateTime 06/17/2022 180.34 cm Akosua Kidd [facility] 06/17 08:47:52 Date Recorded Body mass index (BMI) Provider Name and Address Organization Details Last Updated DateTime 06/17/2022 46 kg/m2 Akosua Kidd [facility] 06/17 08:47:56 Date Recorded Body weight Provider Name an d Address Organization Details Last Updated DateTime 06/17/2022 646598.48 g Akosua Kidd [facility] 05/31 08:47:57 Date Recorded Heart rate Provider Name an d Address Organization Details Last Updated DateTime 06/17/2022 76 /min Akosua Kidd [facility] 06/17 08:48:05 Date Recorded Body height Provider Name an d Address Organization Details Last Updated DateTime 12/30/2022 180.34 cm Aoksua Kidd [facility] 12/30 08:43:38 Date Recorded Body mass index (BMI) Body weight Provider Name and Address Organization Details Last Updated DateTime 12/30/2022 47.4 kg/m2 390660.41 g Akosua Kidd [facility] 12/30/2022 08:43:57 Date Recorded Heart rate Provider Name an d Address Organization Details Last Updated DateTime 12/30/2022 61 /min Akosua Kidd [facility] 12/30 08:48:04 Date Recorded Body height Provider Name an d Address Organization Details Last Updated DateTime 12/24/2021 180.34 cm Akosua Kidd [facility] 12/24 11:52:20 Date Recorded Body mass index (BMI) Provider Name and Address Organization Details Last Updated DateTime 12/24/2021 45.2 kg/m2 Akosua Kidd [facility] 12/24 11:52:24 Date Recorded Body weight Provider Name an d Address Organization Details Last Updated DateTime 12/24/2021 060832.93 g Akosua Kidd [facility] 12/02 11:52:25 Date Recorded Heart rate Provider Name an d Address Organization Details Last Updated DateTime 12/24/2021 58 /min Akosua Kidd [facility] 12/24 11:52:36 Date Recorded Body height Provider Name an d Address Organization Details Last Updated DateTime 03/05/2022 180.34 cm Burton MonzonMorganLethabrayden [facility] 03/05/2022 10:06:02 Date Recorded Body mass index (BMI) Body weight Provider Name and Address Organization Details Last Updated DateTime 03/05/2022 45.2 kg/m2 791881.93 g Burton Riosangelica [facility] 03/05/2022 10:06:08 Date Recorded Body height Provider Name an d Address Organization Details Last Updated DateTime 03/19/2022 180.34 cm Domonique Benton [facility] 16:27:59 Date Recorded Body mass index (BMI) Body weight Provider Name and Address Organization Details Last Updated DateTime 03/19/2022 46.2 kg/m2 122509.07 g Domonique Benton [facility] 03/19/2022 16:28:21 Date Recorded Heart rate Provider Name an d Address Organization Details Last Updated DateTime 03/19/2022 76 /min Domonique Benton [facility] 16:28:40 Date Recorded Respiratory rate Provider Name a nd Address Organization Details Last Updated DateTime 03/19/2022 18 /min Domonique Benton [facility] 16:28:44 Date Recorded Body temperature Provider Name a nd Address Organization Details Last Updated DateTime 03/19/2022 97.4 [degF] Domonique Benton [facility] 16:28:48 Date Recorded Oxygen saturation Oxygen saturation in Arterial blood by Pulse oximetry Provider Name and Address Organization Details Last Updated DateTime 03/19/2022 87 % 87 % Domonique Benton [facility] 03/19/2022 16:30:27 Date Recorded Systolic blood pressure Diastolic blood pressure Provider Name and Address Organization Details Last Updated DateTime 06/17/2022 134 mm[Hg] 74 mm[Hg] Akosua Kidd [facility] 06/17/2022 08:48:02 Date Recorded Systolic blood pressure Diastolic blood pressure Provider Name and Address Organization Details Last Updated DateTime 12/30/2022 136 mm[Hg] 72 mm[Hg] Akosua Kidd [facility] 12/30/2022 08:48:33 Date Recorded Systolic blood pressure Diastolic blood pressure Provider Name and Address Organization Details Last Updated DateTime 12/24/2021 150 mm[Hg] 76 mm[Hg] Akosua Kidd [facility] 12/24/2021 11:52:32 Date Recorded Systolic blood pressure Diastolic blood pressure Provider Name and Address Organization Details Last Updated DateTime 03/05/2022 130 mm[Hg] 72 mm[Hg] Burton Hernandez [facility] 03/05/2022 10:06:14 Date Recorded Systolic blood pressure Diastolic blood pressure Provider Name and Address Organization Details Last Updated DateTime 03/19/2022 134 mm[Hg] 84 mm[Hg] Domonique Benton [facility] 03/19/2022 16:28:31 Social History Question Answer Notes LastModified by Organizat ion Details LastModified Time In The 14 Days Before Symptom Onset, Have You Had Close Contact With A Laboratory-confirm ed COVID-19 While That Case Was Ill? No Information n ot available 12/24/2021 In The 14 Days Before Symptom Onset, Have You Had Close Contact With A Person Who Is Under Investigation For COVID-19 While That Person Was Ill? No Information not available 12/24/2021 What Was The Date Of Your Most Recent Tobacco Screening? 12/30/2022 Information not available 12/30/2022 Do You Or Have You Ever Used Any Other Forms Of Tobacco Or Nicotine? No [email or web address] Information not available 03/05/2022 Sex: Unknown Functional Status None recorded. Mental Status None recorded. Family History Relationship Description Onset Age of this Age Resolved Age Notes LastModified by Organization Details LastModified Time Unspecified Relation Malignant neoplastic disease [email or web address] Not available 2015 11:25:11 Unspecified Relation Problem knee issues [email or web address] Not available 10/28/2016 11:25:11 Unspecified Relation Problem back issues [email or web address] Not available 10/28/2016 11:25:11 Medical History Condition Response atrial fibrillation Y pulmonary embolism Y Past Encounters Encounter ID Performer Location Encounter Start Date Encounter Closed Date Diagnosis/Indication Diagnosis SNOMED-CT Code Diagnosis ICD10 Code Diagnosis Note [id number] AARON KOLB MD [facility] [address] [address] 08/26/2016 09:43:05 08/26/2016 10:41:49 Lumbar radiculopathy 455554413 M54.16 [id number] AARON KOLB MD [facility] [address] [facility] [place] [address] 10/07/2016 10:00:44 10/07/2016 10:35:13 Lumbar radiculopathy 539167905 M54.16 [id number] AARON KOLB MD [facility] [address] [address] 10/28/2016 11:17:17 10/28/2016 11:52:59 Lumbar radiculopathy 513031573 M54.16 [id number] RIVERA VALDEZ [facility] [address] [address] 01/29/2017 09:08:04 01/29/2017 10:06:57 Lumbar radiculopathy 081074249 M54.16 [id number] JUSTICE ROBERSON MD,[facility]/ONCOLOG Y AT [address] [address] 08/28/2017 13:17:35 08/28/2017 14:34:11 History of deep vein thrombosis 503943236 Z86.718 History of pulmonary embolus 737522595 Z86.711 Anemia 171391572 D64.9 [id number] GWEN Osborn MD [facility]/ONCOLOG Y AT [address] [address] 02/25/2018 15:08:18 02/25/2018 15:59:29 History of pulmonary embolus 926327214 Z86.711 I discussed with Mr. Dolan today regarding decreasing his dose of apixaban to Xarelto 10 mg once a day as a maintenanc e dose. However Mr. Dolan says that he is very happy on apixaban and does not have any bleeding and he would like to continue on the same. He has a class action suit against xarelto as he had severe bleeding while on it. PLAN: 1. continue the Apibixan 5 mg po bid 2. f/u in 6 months - will need comp (to check lfts/cr) and cbc prior. 3. mild leukocytos is with neutrophil ia - stable from 05/2017 -- most c/w morbid obesity and COPD Leukocytosis [id number] D 72.829 [id number] [address] [facility]/ONCOLOG Y AT [address] [address] 08/28/2018 14:37:43 09/01/2018 12:44:19 Leukocytosis 948375653 D72.829 Stable. Mild leukocytos is with neutrophil ia - stable from 05/2017 -- most c/w morbid obesity and COPD Pulmonary embolism 81726 003 I26.99 Doing very well on eliquis; continue indefinite ly or till the risk is more than the benefit. I also advised him that its ok to come off the eliquis for the procedures for upto 3 days. If it going to be more than that; we might have to consider bridging with lovenox if needed. PLAN: 1. continue the Apibixan 5 mg po bid 2. f/u in 6 months - will need comp (to check lfts/cr) and cbc prior. [id number] GWEN Osborn MD [facility]ONCOL[facility] Y AT [address] [place] [address] 02/26/2019 13:36:08 02/26/2019 14:08:06 Pulmonary embolism 61975594 I26.99 Mr. Dolan is doing very well on eliquis; continue indefinite ly or till the risk is more than the benefit. I also advised him that its ok to come off the eliquis for the procedures for upto 3 days. If it going to be more than that; we might have to consider bridging with lovenox if needed. PLAN: 1. continue the Apibixan 5 mg po bid 2. f/u in 6 months - will check CMP, CBC at the time. His most recent labs that was done on 02/25/2019 was unremarkab le except for slightly elevated white count of 13.8 which can be explained by the fact that he is on steroids. He also has chronic carbon dioxide retention Leukocytosis [id number] D 72.829 Stable. Mild leukocytos is with neutrophil ia - stable from 05/2017 -- most c/w morbid obesity and COPD currently on chronic steroids Recurrent pneumonia 6990 46560 J18.9 This is the second time that he had been hospitaliz ed in the past 6 months for pneumonia. He also had multiple infections requiring steroid treatment as well as antibiotic s. I am going to check quantitati ve immunoglob ulins on him and see whether he will benefit from some IVIG infusion [id number] GWEN Osborn MD [facility] AT [address] [address] 09/03/2019 14:55:38 09/03/2019 15:32:14 Pulmonary embolism 95456103 I26.99 Mr. Dolan is doing very well on eliquis. He denies any bleed/new blood clots or bruising. He was off the eliquis during his colonoscop y and denies any clots during the time. PLAN: 1. Continue the Apixaban 5 mg po bid 2. Follow up in 12 months or earlier if needed Leukocytosis 244684914 D 72.829 Stable. Resolved Mild leukocytos is with neutrophil ia - stable from 05/2017 -- most c/w morbid obesity and COPD; off and on steroids Recurrent pneumonia 6990 64796 J18.9 None since the last visit and the immunoglob ulins are within normal limits except for a slightly low IgM in 01/2019. No plans for any interventi ons [id number] Drew Huerta [facility] [address] [facility] [address] [place] [address] 12/02/2019 09:55:34 12/02/2019 10:54:09 History of pulmonary embolus 274061967 Z86.711 04/29/17 - hospitaliz ed with pulmonary embolism. Continue anticoagul ation with Eliquis. Essential hypertension 18317834 I10 Current status is stable 136/84. BP today Continue current medication s. advised to monitor BP at home and keep a log. Atrial flutter 4488681 I 48.92 stable - no recurrence 12/04/15 - ABLATION -- ATRIAL FLUTTER --> complicate d by right groin hematoma, warfarin held for one week 03/27/15 - ABLATION of Atrial Flutter (right-chanelle ed, clockwise) , complicate d by groin hematoma which is improving. 03/06/15 - recurrent atrial flutter 01/18/15 - CARDIOVERS ION -- Atrial Flutter ----> Sinus Rhythm, 08/31/14 - CARDIOVERS ION -- Atrial Flutter ----> Sinus Rhythm. 11/17/19 -normal LV size and function, EF 60%, moderate LVH, mild KAITLIN, elevated PA pressure at 44 mmHg. 03/26/19 - Normal LV size and function, EF 55%, mod LVH mod LAE, normal PA pressure continue current medication s Patient anticoagul ated with Eliquis because of previous pulmonary embolus (04/29/17). [id number] Drew Huerta [facility] [address] [facility] [place] [address] 01/20/2020 08:58:18 01/20/2020 10:06:43 Atrial flutter 4180366 I48.92 Recent recurrence during hospitaliz ation on 12/22/2019 at [facility] bsequently transition to atrial fibrillati on and then to sinus rhythmNow on amiodarone 200 mg daily 12/04/15 - ABLATION -- ATRIAL FLUTTER --> complicate d by right groin hematoma, warfarin held for one week - ABLATION of Atrial Flutter (right-chanelle ed, clockwise) , complicate d by groin hematoma which is improving. 03/06/15 - recurrent atrial vlundgz55/ 18/15 - CARDIOVERS ION -- Atrial Flutter ----> Sinus Rhythm,12/14 - CARDIOVERS ION -- Atrial Flutter ----> Sinus Rhythm. -normal LV size and function, EF 60%, moderate LVH, mild KAITLIN, elevated PA pressure at 44 mmHg. 03/26/19 - Normal LV size and function, EF 55%, mod LVH mod LAE, normal PA pressure continue current medication sPatient anticoagul ated with Eliquis because of previous pulmonary embolus (04/29/17). Continue current medication History of pulmonary embolus 179704171 Z86.711 04/29/17 - hospitaliz ed with pulmonary embolism. Continue anticoagul ation with Eliquis. Essential hypertension 85314260 I10 Current status is stableBloo d pressure today is 130/73 but has been running 100/60 at home Stop amlodipine advised to monitor BP at home and keep a log. Peripheral edema 8846256 00 R60.9 cont LASIX 40 mg twice daily [id number] ALLY HAYNES MD [facility] [address] [facility] [address] [place] [address] 01/20/2020 08:13:42 01/20/2020 08:42:37 Hyperthyroidism 35796188 E05.90 59 y/o male with hyperthyro idism here for further evaluation .He is clinically euthyroid to slightly hyperthyro id.The cause of his hyperthyro idism is not clear.Paul mmend repeat labs today.If his TSH is still low, to obtain a thyroid scan and uptake.He will be informed of his results once available and given further recommenda tions.F/U in 3 months. [id number] ALLY HAYNES MD [facility] [address] [facility] [address] [place] [address] 05/04/2020 08:23:35 05/04/2020 08:41:17 Hyperthyroidism 88574793 E05.90 59 y/o male with hyperthyro idism here for the follow up.He is clinically euthyroidR ecommend repeat labs today.He will be informed of his results once they are available. Follow up as needed. [id number] Drew Huerta [facility] [address] [facility] [address] [place] [address] 07/20/2020 08:33:35 07/20/2020 09:13:20 Atrial flutter 4881462 I48.92 Recent recurrence during hospitaliz ation on 12/22/2019 at [facility] bsequently transition to atrial fibrillati on and then to sinus rhythmNow on amiodarone 200 mg daily12/04 - ABLATION -- ATRIAL FLUTTER --> complicate d by right groin hematoma, warfarin held for one week - ABLATION of Atrial Flutter (right-chanelle ed, clockwise) , complicate d by groin hematoma which is improving. 03/06/15 - recurrent atrial jyxzwqk13/ 18/15 - CARDIOVERS ION -- Atrial Flutter ----> Sinus Rhythm,12/14 - CARDIOVERS ION -- Atrial Flutter ----> Sinus Rhythm. -normal LV size and function, EF 60%, moderate LVH, mild KAITLIN, elevated PA pressure at 44 mmHg. 03/26/19 - Normal LV size and function, EF 55%, mod LVH mod LAE, normal PA pressure continue current medication sPatient anticoagul ated with Eliquis because of previous pulmonary embolus (04/29/17). Continue current medication History of pulmonary embolus 478323420 Z86.711 04/29/17 - hospitaliz ed with pulmonary embolism.C ontinue anticoagul ation with Eliquis. Peripheral edema 8999395 00 R60.9 cont LASIX 40 mg twice daily Essential hypertension 71031946 I10 Current status is stableBloo d pressure today is 132/80BP at home averages 130/80 previously stopped amlodipine advised to monitor BP at home and keep a log. [id number] Drew Huerta [facility] [address] [facility] [address] [place] [address] 01/23/2021 15:13:08 01/24/2021 13:51:19 Atrial flutter 3920542 I48.92 stableno recurrence Last recurrence during hospitaliz ation on 12/22/2019 at [facility] bsequently transition to atrial fibrillati on and then to sinus rhythmNow on amiodarone 200 mg daily 11/17/19 - ECHO - normal LV size and function, EF 60%, moderate LVH, mild KAITLIN, elevated PA pressure at 44 mmHg. 12/04/15 - ABLATION -- ATRIAL FLUTTER --> complicate d by right groin hematoma, warfarin held for one week - ABLATION of Atrial Flutter (right-chanelle ed, clockwise) , complicate d by groin hematoma which is improving. 03/06/15 - recurrent atrial flutter 01/18/15 - CARDIOVERS ION -- Atrial Flutter ----> Sinus Rhythm,12/14 - CARDIOVERS ION -- Atrial Flutter ----> Sinus Rhythm. 11/17/19 -normal LV size and function, EF 60%, moderate LVH, mild KAITLIN, elevated PA pressure at 44 mmHg. 03/26/19 - Normal LV size and function, EF 55%, mod LVH mod LAE, normal PA pressure continue current medication sPatient anticoagul ated with Eliquis because of previous pulmonary embolus (04/29/17). Continue current medication History of pulmonary embolus 362369230 Z86.711 04/29/17 - hospitaliz ed with pulmonary embolism.C ontinue anticoagul ation with Eliquis. Peripheral edema 6962223 00 R60.9 cont LASIX 40 mg twice daily Essential hypertension 49937759 I10 Blood pressure today is 164/80BP at home averages 130/80 previously stopped amlodipine advised to monitor BP at home and keep a log. [id number] JANNA GODOY MD [facility] [address] [facility], [address] [place] [address] 01/31/2021 09:01:06 01/31/2021 10:25:57 Rotator cuff arthropathy of left shoulder [id number] M25.812 [id number] ALLY HAYNES MD [facility] [address], [place] [address] 03/08/2021 07:58:12 03/08/2021 08:15:50 Hyperthyroidism 26885659 E05.90 60 y/o male with hyperthyro idism here for the follow up.He is clinically euthyroidR ecommend repeat labs today.He will be informed of his results once they are available. Follow up in 6 months. [id number] Drew Huerta [facility] [address] [place] [address] 12/24/2021 11:40:42 12/24/2021 12:18:34 Atrial flutter 8089676 I48.92 stableno recurrence Last recurrence during hospitaliz ation on 12/22/2019 at [facility] bsequently transition to atrial fibrillati on and then to sinus rhythmNow on amiodarone 200 mg daily 11/17/19 - ECHO - normal LV size and function, EF 60%, moderate LVH, mild KAITLIN, elevated PA pressure at 44 mmHg. 12/04/15 - ABLATION -- ATRIAL FLUTTER --> complicate d by right groin hematoma, warfarin held for one week - ABLATION of Atrial Flutter (right-chanelle ed, clockwise) , complicate d by groin hematoma which is improving. 03/06/15 - recurrent atrial flutter 01/18/15 - CARDIOVERS ION -- Atrial Flutter ----> Sinus Rhythm,12/14 - CARDIOVERS ION -- Atrial Flutter ----> Sinus Rhythm. 03/26/19 - Normal LV size and function, EF 55%, mod LVH mod LAE, normal PA pressure continue current medication sPatient anticoagul ated with Eliquis because of previous pulmonary embolus (04/29/17). Continue current medication History of pulmonary embolus 719745956 Z86.711 04/29/17 - hospitaliz ed with pulmonary embolism.C ontinue anticoagul ation with Eliquis. Peripheral edema 8118617 00 R60.9 cont LASIX 40 mg twice daily Essential hypertension 01157052 I10 Blood pressure today is 150/76BP at home averages 130/80 previously stopped amlodipine advised to monitor BP at home and keep a log. [id number] ALLY HAYNES MD [facility] [address] [facility] [address] [address] 09/04/2021 06:56:25 09/04/2021 07:29:04 Hyperthyroidism 30936063 E05.90 60 y/o male with hyperthyro idism seen for the follow up utilizing telehealth .He seems clinically euthyroidR ecommend repeat labs. 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 He does not require any active treatment at this time.Follo w up in 1 year. Atrial fibrillation 4943 6004 I48.91 Continue eliquis, diltiazem CD 240 mg QD and metoprolol ER 100 mg QD. Chronic ob structive pulmonary disease 72537547 J44.9 Continue symbicort and proair as needed [id number] ALLY HAYNES MD [facility] [address] [facility] [address], [place] [address] 12/13/2021 07:10:40 12/13/2021 07:29:48 Hyperthyroidism 52278814 E05.90 61 y/o male with hyperthyro idism seen for the follow up utilizing telehealth .He seems clinically euthyroidH owever his repeat TSH remains slightly lower and FT4 high normal.Rec ommend increasing his methimazol e dose to 5 mg, whole pill daily.Foll ow up 3 months. Atrial fibrillation 4943 6004 I48.91 Continue eliquis, diltiazem CD 240 mg QD and metoprolol ER 100 mg QD. Chronic ob structive pulmonary disease 67878634 J44.9 Continue symbicort and proair as needed [id number] GENI MCGHEE MD [facility] @ [address] [facility] [address] [place] [address] 03/05/2022 09:38:31 03/05/2022 10:38:43 History of deep vein thrombosis 864001028 Z86.718 Peripheral venous insufficiency 79048667 I87.2 Lymphedema of limbs due to immobility, chronic dependency and/or venous insufficiency 334975463 I89.0 Morbid obesity 787366414 E66.[id number] [facility] SPECIAL[facility] [address] [facility] [address] [place] [address] 03/19/2022 16:23:53 03/19/2022 16:35:45 Hyperthyroidism 15127113 E05.90 61 y/o male with hyperthyro idism here for the follow-up. He seems clinically euthyroidR epeat TSH and free T4. Continue methimazol e 5 mg daily for now.Follow up 3 months. Atrial fibrillation 4943 6004 I48.91 Continue eliquis, diltiazem CD 240 mg QD and metoprolol ER 100 mg QD. Chronic ob structive pulmonary disease 63511887 J44.9 Continue symbicort and proair as needed [id number] Drew Huerta [facility] [address] [facility] [place] [address] 06/17/2022 08:33:28 06/17/2022 09:09:01 Atrial flutter 4941150 I48.92 stableno recurrence Last recurrence during hospitaliz ation on 12/22/2019 at [facility] bsequently transition to atrial fibrillati on and then to sinus rhythmNow on amiodarone 200 mg daily 11/17/19 - ECHO - normal LV size and function, EF 60%, moderate LVH, mild KAITLIN, elevated PA pressure at 44 mmHg. 12/04/15 - ABLATION -- ATRIAL FLUTTER --> complicate d by right groin hematoma, warfarin held for one week - ABLATION of Atrial Flutter (right-chanelle ed, clockwise) , complicate d by groin hematoma which is improving. 03/06/15 - recurrent atrial flutter 01/18/15 - CARDIOVERS ION -- Atrial Flutter ----> Sinus Rhythm,12/14 - CARDIOVERS ION -- Atrial Flutter ----> Sinus Rhythm. 03/26/19 - Normal LV size and function, EF 55%, mod LVH mod LAE, normal PA pressure continue current medication sPatient anticoagul ated with Eliquis because of previous pulmonary embolus (04/29/17). Continue current medication History of pulmonary embolus 488389174 Z86.711 04/29/17 - hospitaliz ed with pulmonary embolism.C ontinue anticoagul ation with Eliquis. Peripheral edema 7222164 00 R60.9 cont LASIX 40 mg twice daily Essential hypertension 00857106 I10 Blood pressure today is 134/74BP at home averages 130/80 previously stopped amlodipine advised to monitor BP at home and keep a log. [id number] Drew Huerta [facility] [address] [facility] [address] [place] [address] 12/30/2022 08:30:02 12/30/2022 09:08:13 Atrial flutter 3602437 I48.92 stableno recurrence Last recurrence during hospitaliz ation on 12/22/2019 at [facility] bsequently transition to atrial fibrillati on and then to sinus rhythmNow on amiodarone 200 mg daily 11/17/19 - ECHO - normal LV size and function, EF 60%, moderate LVH, mild KAITLIN, elevated PA pressure at 44 mmHg. 12/04/15 - ABLATION -- ATRIAL FLUTTER --> complicate d by right groin hematoma, warfarin held for one week - ABLATION of Atrial Flutter (right-chanelle ed, clockwise) , complicate d by groin hematoma which is improving. 03/06/15 - recurrent atrial flutter 01/18/15 - CARDIOVERS ION -- Atrial Flutter ----> Sinus Rhythm,12/14 - CARDIOVERS ION -- Atrial Flutter ----> Sinus Rhythm. 03/26/19 - Normal LV size and function, EF 55%, mod LVH mod LAE, normal PA pressure continue current medication sPatient anticoagul ated with Eliquis because of previous pulmonary embolus (04/29/17). Continue current medication History of pulmonary embolus 944832424 Z86.711 04/29/17 - hospitaliz ed with pulmonary embolism.C ontinue anticoagul ation with Eliquis. Peripheral edema 4165857 00 R60.9 cont LASIX 40 mg twice daily Essential hypertension 67378943 I10 Blood pressure today is 136/72BP at home averages 130/80 previously stopped amlodipine advised to monitor BP at home and keep a log. Health Concerns Section Related Observation LastModified by Organization Detai ls LastModified Time None Recorded Concern Status LastModified by Organization Details LastModified Time None Recorded Advance Directives Directive None Recorded Payers Encounter Date Sequence Insurance Name Policy Number Policy Joyner Covered Member ID Joyner Member ID Guarantor Name 12/24/2021 1 [place] [id number] Lissy Garcia [id number] Oly Dolan 03/05/2022 1 [place] [id number] Lissy Garcia [id number] Oly Dolan 03/19/2022 1 [place] [id number] Lissy Garcia [id number] Oly Dolan 06/17/2022 1 [place] [id number] Lissy Garcia [id number] Oly Dolan 12/30/2022 1 [place] [id number] Oly Dolan [id number] Oly Dolan Notes Date Note Type Note Provider Name and Address Organization Details Recorded Time 12/24/2021 text/html The patient is a 61 year old male whose cardiac / medical problems are listed below. Patient is seen today for continued evaluation and management of atrial flutter and hypertension. Admitted to [facility] on 12/14/2019 with pneumonia and COPD exacerbation, oxygen desaturation at 69%. Told to use oxygen at home 23/06. Now using oxygen at night with CPAP, as needed during the day, and while on treadmill. Seen by his hydraulics teacher Dr. Gomes on 12/21/2019 Admitted to [facility] on 12/22/2019 with pneumonia, COPD exacerbation, elevated heart rate initially with atrial flutter, then atrial fibrillation, and then conversion to sinus rhythm. Subsequently sent to [place] for 2 weeks and home for 1 week. Improved clinically at present. 11/11/19 - COPD exacerbation 12/25/16 - hospitalization with pneumonia with decreased oxygen desaturation. 04/29/17 - hospitalized with pulmonary embolism. Treated with Eliquis. 12/04/15 - ABLATION -- ATRIAL FLUTTER --> complicated by right groin hematoma, warfarin held for one week 03/27/15 - ABLATION of Atrial Flutter (right-sided, clockwise), complicated by groin hematoma Currently has baseline respiratory symptoms (VILLELA with moderate exertion) with decrease oxygen saturation --- oxygen saturation maintained in 90s.at rest. DEVIN on CPAP Has persistent mild bilateral lower extremity edema. Overall the patient feels well from the CV standpoint. Cardiovascular review of systems is otherwise negative for chest pain at rest, chest pain with exertion, orthopnea, PND, lightheadedness, syncope, palpitations, symptoms of claudication. Drew Huerta [address] [place] [address], [phone], [facility] 12/24/2021 12:23:51 03/05/2022 text/html 61-year-old zaynab peters with a past medical history of a PE secondary to immobility from a DVT of the right leg approximately 8 years ago. The patient has a history of superficial thrombophlebitis as well. 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 He does wear compression stockings religiously. He is on Eliquis for his a flutter AFib and will be so lifelong.Overall the patient is doing well he states his compression stockings help with the swelling and was sent for further treatment recommendations. GENI MCGHEE MD [address] [place], [address], [facility] 03/05/2022 10:57:02 03/19/2022 text/html Mr. Dolan is h ere for the follow up.He is a 61 y/o male with h/o brief hyperthyroidism.His TSH from 11/25/2019 was 0.23 and FT4 1.8.He had no previous history or family history of thyroid disease.He does take amiodarone 200 mg daily for history of AFib.His repeat labs had been normal previously but at his visit September 04, 2021, his TSH was slightly low, 0.38 and free T4 high normal at 1.6.He was started on low-dose methimazole 2.5 mg daily.His last TSH from December 11, 2021 was 0.52 (0.55-4.78) and free T4 1.43. His methimazole was increased to 5 mg daily.He denies heat intolerance or palpitations.He denies weight loss.He weighs 324 lbs now. He is 5',11 tall and his BMI is 45.He feels a bit short of breath. However this has been chronic. He offers no other complaints. ALLY HAYNES MD [address] [place] [address], [phone], [facility] 03/19/2022 16:37:26 06/17/2022 text/html The patient is a 61 year old male whose cardiac / medical problems are listed below. Patient is seen today for continued evaluation and management of atrial flutter and hypertension. Admitted to [facility] on 12/14/2019 with pneumonia and COPD exacerbation, oxygen desaturation at 69%. Told to use oxygen at home 23/06. Now using oxygen at night with CPAP, as needed during the day, and while on treadmill. Seen by his hydraulics teacher Dr. Gomes on 12/21/2019 Admitted to [facility] on 12/22/2019 with pneumonia, COPD exacerbation, elevated heart rate initially with atrial flutter, then atrial fibrillation, and then conversion to sinus rhythm. Subsequently sent to [place] for 2 weeks and home for 1 week. Improved clinically at present. 11/11/19 - COPD exacerbation 12/25/16 - hospitalization with pneumonia with decreased oxygen desaturation. 04/29/17 - hospitalized with pulmonary embolism. Treated with Eliquis. 12/04/15 - ABLATION -- ATRIAL FLUTTER --> complicated by right groin hematoma, warfarin held for one week 03/27/15 - ABLATION of Atrial Flutter (right-sided, clockwise), complicated by groin hematoma Currently has baseline respiratory symptoms (VILLELA with moderate exertion) with decrease oxygen saturation --- oxygen saturation maintained in 90s.at rest. DEVIN on CPAP Has persistent mild bilateral lower extremity edema. Overall the patient feels well from the CV standpoint. Cardiovascular review of systems is otherwise negative for chest pain at rest, chest pain with exertion, orthopnea, PND, lightheadedness, syncope, palpitations, symptoms of claudication. Drew Huerta [address] [place] [address], [phone], [facility] 06/17/2022 09:40:08 12/30/2022 text/html The patient is a 62 year old male whose cardiac / medical problems are listed below. Patient is seen today for continued evaluation and management of atrial flutter and hypertension. Admitted to [facility] on 12/14/2019 with pneumonia and COPD exacerbation, oxygen desaturation at 69%. Told to use oxygen at home 23/06. Now using oxygen at night with CPAP, as needed during the day, and while on treadmill. Seen by his hydraulics teacher Dr. Gomse on 12/21/2019 Admitted to [facility] on 12/22/2019 with pneumonia, COPD exacerbation, elevated heart rate initially with atrial flutter, then atrial fibrillation, and then conversion to sinus rhythm. Subsequently sent to [place] for 2 weeks and home for 1 week. Improved clinically at present. 11/11/19 - COPD exacerbation 12/25/16 - hospitalization with pneumonia with decreased oxygen desaturation. 04/29/17 - hospitalized with pulmonary embolism. Treated with Eliquis. 12/04/15 - ABLATION -- ATRIAL FLUTTER --> complicated by right groin hematoma, warfarin held for one week 03/27/15 - ABLATION of Atrial Flutter (right-sided, clockwise), complicated by groin hematoma Currently has baseline respiratory symptoms (VILLELA with moderate exertion) with decrease oxygen saturation --- oxygen saturation maintained in 90s.at rest. DEVIN on CPAP Has persistent mild bilateral lower extremity edema. Overall the patient feels well from the CV standpoint. Cardiovascular review of systems is otherwise negative for chest pain at rest, chest pain with exertion, orthopnea, PND, lightheadedness, syncope, palpitations, symptoms of claudication. Drew Huerta [address] [place] [address], [phone], [facility] - [facility] 12/30/2022 09:08:09
--- OUTSIDE RECORDS SUMMARY | 2024-12-23 15:38 | XMS_ITS ---
Author Organization [facility] Address [address] [place] [address] Care Team Providers Care Edi Coordinator Name Role Phone Alea Hull MD Primary Care Provider Hector Brown Unavailable [phone] Allergies No Known Allergies REASON FOR VISIT Wart(s) Medications Medication SIG (Take, Route, Frequency, Duration) Notes Start Date End Date Status Albuterol Sulfate 2.5 MG/0.5ML as directed Inhalation Unkno wn Spiriva Respimat 2.5 MCG/ACT 2 puffs Inhalation Once a day Unknown Albuterol Sulfate 108 (90 Base) MCG/ACT 1 puff as needed Inhalation every 4 hrs Unknown [place] 3 1000 MG 1 capsule Orally Onc [...] 03/03/2024 Encounters Encounter Location Date Provider Diagnosis [facility] [place] [address] [place] [address] 03/03/2024 Hector Rodriguez Right foot pain M79.671 [...] Notes * Mario DOLANDOB:1960 (63 yo M)Acc No.[id number]:03/03/2024 Progress Note Patient:?Mario Dolan Provider:?Hector Rodriguez DPM :1960???Age:63 Y???Sex:Male John Paul e:03/03/2024 Address:[address] [place], [place] [id number] Pcp:Alea Hull MD Subjective: * Chief Complaints: [...] History:? * Surgical History:?cardiac ra diofrequency ablasion [facility] [place]12/24 * Hospitalization/Major Diagno stic Procedure:[place] [place] [facility] [place]12/24 * Family History:?Mother: tye [...] before morning meal Orally Once a dayUnknown [place] 3 1000 MG Capsule 1 capsule Orally [...] DPM Date:? 024 Generated for Prashanthi katie/Makayla/eTransmitting on:?12/23/2024 03:37 PM EST History and Physical Notes * [...]
--- OUTSIDE RECORDS SUMMARY | 2024-12-23 15:38 | XMS_ITS ---
Author Organization [facility] Address [address] [place] [id number] Care Team Providers Care Engraver Optical Frames Name Role Phone Alea Hull MD Primary Care Provider Hector Brown Unavailable [phone] Lillian Matias Unavailable [phone] Encounters Encounter Location Date Provider Diagnosis [address] [address] 01/28/2024 Lillian Matias Plan Of Treatment No Information Progress Notes * Mario DOLANDOB:1960 (64 yo M)Acc No.[id number]:01/28/2024 Progress Notes Patient:?Mario DOLAN Provider:?Lillian Matias DPM :1960???Age:63 Y???Sex:Male John Paul e:01/28/2024 Address:[address] [place], [place] [id number] Pcp:Alea Hull MD Subjective: * Chief Complaints: [...] Matias DPM Date:? Generated for Carly wilson/Makayla/eTransmitting on:?12/23/2024 03:37 PM EST
--- OUTSIDE RECORDS SUMMARY | 2024-12-23 15:38 | XMS_ITS | Patient Health Record ---
Author [facility] Address [address] [place] [address] Care Team Providers Care Scleroscope Tester Name Role Phone Alea Hull MD Primary Care Provider UnavailHector Villarreal Unavailable [phone] Lillian Matias Unavailable [phone] Allergies No Known Allergies Reason For Referral [...] 1 tablet Orally Once a day Active [place] 3 1000 MG 1 capsule Orally Onc [...] 03/03/2024 Encounters Encounter Location Date Provider Diagnosis [facility] [address] [address] 03/03/2024 Hector Rodriguez Right foot pain M79.671 ; Ingrown nail L60.0 and Dystrophic nail L60.[address] [facility] [address] 01/01/2024 Lillian Matias [facility] [address] [address] 01/23/2024 Hector Rodriguez Assessments Encounter Date Diagnosis [...] Insured Coverage Start Date Coverage End Date [facility] [employer] [address] [place] [address] [phone] [id number] Lissy Bill Spouse - patient is [...] leg surgery 01/12/24 Hospitalization History Reason Date(Month/Year) [facility] [place] [place] copd 10/2023 [facility] - fell 01/12/24
--- OUTSIDE RECORDS SUMMARY | 2024-12-23 15:38 | XMS_ITS ---
Author Organization [facility] Address [address] [place] [id number] Care Team Providers Care Machinist Name Role Phone Alea Hull MD Primary Care Provider Hector Brown [phone] REASON FOR VISIT Reschedule Encounters Encounter Location Date Provider Diagnosis [facility] [address] [place] [address] 01/23/2024 Hector Rodriguez Plan Of Treatment No Information Progress Notes * Mario DOLANDOB:1960 (63 yo M)Acc No.[id number]:01/23/2024 Patient:?Mario Dolan :1960???Age:63 Y???Sex:Male Address:[address] [place] [address] * true * Date:? Generated for Prashanthi katie/Makayla/eTransmitting on:?12/23/2024 03:37 PM EST
== END 2024-12-23 14:05 | disposition home or self-care (01) ==
PROVIDERS: PCP Internal Medicine; Visit Provider Hospitalist
DX: J44.1 Chronic obstructive pulmonary disease with (acute) exacerbation (principal); J96.11 Chronic respiratory failure with hypoxia; J96.12 Chronic respiratory failure with hypercapnia; Z86.711 Personal history of pulmonary embolism; G47.33 Obstructive sleep apnea (adult) (pediatric); R91.8 Other nonspecific abnormal finding of lung field; E66.2 Morbid (severe) obesity with alveolar hypoventilation
CPT/HCPCS: 99214

== ENCOUNTER → 2024-12-23 13:17 | Outpatient (BNVA) | payer BC, SELFPAY | PROVIDERS: PCP Internal Medicine; Visit Provider Hospitalist ==

== ENCOUNTER 2025-01-03 12:07 | Outpatient (REF) | payer BC, SELFPAY ==
[2025-01-03 13:09] LABS: Hematocrit 43.9 % (42.0-52.0); Hemoglobin 13.4 g/dl (14.0-18.0); Mean Corpuscular HGB Conc 30.5 g/dl (31.0-36.0); Mean Corpuscular Hemoglobin 27.2 pg (27.0-33.0); Mean Corpuscular Volume 89.2 fL (80.0-98.0); Mean Platelet Volume 9.9 fL (9.4-12.4); Platelet Count 215 X10*3/uL (160-400); Red Blood Count 4.92 X10*6/uL (4.60-5.80); Red Cell Distribution Width 16.6 % (11.0-16.0)
[2025-01-03 13:25] LABS: VBG Base Excess 12.8 mmol/L; VBG HCO3 41 mmol/L (22-26); VBG pCO2 73 mmHg; VBG pH 7.36 (7.32-7.43); VBG pO2 42 mmHg; Venous Blood Gas Refer to POC result
--- OUTSIDE RECORDS SUMMARY | 2025-01-03 13:34 | XMS_ITS | Data Portability ---
Author Organization [facility] Address [address] [place] [address] Care Team Providers [employer] Name Role Phone ALLY HAYNES Financial Cost Analyst DREW HUERTA Train Announcer Assessment Encounter Date Assessment Date Assessment LastModified [...] Lab TSH, serum or plasma 2021 022 [facility], [address] [place] [address], [address], 22:12:14 T4, free, serum 2021 022 [facility], [address] [place] [address], [address], 22:12:15 Referral noé maier surgery referral 2021 022 brunilda Not available 10:54:01 Procedures None recorded . Surgeries None recorded . Imaging electroc ardiogra m 2021 022 barkin In-House Order For Wilbur Provider, For Internal Use Only, 12:23:43 electroc ardiogra m 2021 022 [email or web address] In-House Order For Karissa Provider, For Internal Use Only, 09:09:01 electroc ardiogra m 2022 023 [email or web address] In-House Order For Wilbur Provider, For Internal Use Only, 09:08:13 Medication [...] 1.55 mIU/L 0.40-4 .50 normal Not Available [facility] [address] [place], [id number], 03/27/2022 22:12:14 03/27/20 22 03/27/2022 T4, FREE T4, free 1.6 NG/dL 0.8-1. 8 normal Not Available [employer] [facility] [address], [address], 03/27/2022 22:12:15 12/24/19 22 12/24/2021 elect doug maldonado am No observ ation record ed. [email or web address] In-House Order For Karissa Provider For Internal Use Only, 12/24/2021 12:23:42 12/31/19 22 12/24/2021 CT, angio gram, chest , w/o contr ast No observ ation record ed. jennifer [facility] (Radiology) [address] , [place], [id number], 12/31/2021 17:27:21 01/24/20 22 12/24/2021 elect rocar diogr am No observ ation record ed. BARCODE In-House Order For Karissa Provider For Internal Use Only, [id number] 01/24/2022 19:27:37 02/14/20 22 01/20/2022 US, lower [...] ation record ed. barkin In-House Order For Wilbur Provider For Internal Use Only, 12/30/2022 09:07:46 12/31/19 23 elect rocar diogr am No observ ation record ed. [email or web address] In-House Order For Karissa Provider For Internal Use Only, 12/31/2022 11:06:23 Result Notes None recorded. Problems Name Problem SNOMED Code Status Onset Date Resolution Date Notes Provider Name and Address Organization Details Recorded Time Atrial fibrillation and flutter 772386245 Active Not Available [facility] 2 04:02:30 Lumbar radiculopathy 856835290 Active Not Available [facility] 2 04:02:30 History of deep vein thrombosis 911862337 Active Not Available [employer] 2 04:02:30 History of pulmonary embolus 479883028 Active Not Available [facility] 04:02:31 Anemia 940927225 Active Not Available [facility] 2 04:02:30 Essential hypertension 78843184 Active 2018 Not Available [facility] 2 04:02:31 Acute pulmonary embolism 017602800 Active Other Not Available [facility] 2 04:02:30 Peripheral edema 867061203 Active 2019 Not Available [facility] 2 04:02:30 Superficial thrombophlebi tis 3449245 Active 2021 Not Available [facility] 2 04:02:31 Problem Notes None recorded. Procedures Surgical History Date Name Laterality Status Provider Name and Address Organization Details Recorded Time 12/13/19 22 TeleHealth Visit completed ALLY HAYNES MD [address] [place] [address], [address], [facility] 12/13/2021 07:20:33 09/04/20 21 TeleHealth Visit completed ALLY HAYNES MD [address] [place] [address], [address], [facility] 09/04/2021 07:18:26 03/25/20 14 Diagnostic colonoscopy completed Not Available [facility] 11/01/2015 03:34:03 03/24/20 14 Egd diagnostic brush wash completed Not Available [facility] 11/01/2015 03:34:03 other completed Jackie Chen [facility] 08/26/2016 10:39:29 appendectomy completed Jackie Chhay [facility] 08/26/2016 10:39:29 Imaging Results Imaging Date Name Status LastModified by Organization Details LastModified Time 12/24/2021 electrocardiogram completed [employer] In-Hous e Order For Wilbur Provider For Internal Use Only, [id number] 12/24/2021 12:23:42 12/24/2021 CT, angiogram, chest, w/o contrast completed jennifer [facility] (Radiology) [address], [facility] DWAYNE Wong, [id number], 12/31/2021 17:27:21 12/24/2021 electrocardiogram completed [facility] In-Hous e Order For Karissa Provider For Internal Use Only, [id number] 01/24/2022 19:27:37 01/20/2022 US, lower extremity completed [facility] Infor mation not available 02/13/2022 11:54:31 02/22/2022 US, duplex, venous, lower extremity completed [facility] Information not available 02/26/2022 11:40:31 06/17/2022 electrocardiogram completed barkin In-Hous e Order For Karissa Provider For Internal Use Only, [id number] 06/17/2022 09:08:16 12/30/2022 electrocardiogram completed barkin In-Hous e Order For Wilbur Provider For Internal Use Only, 12/30/2022 09:07:46 [...] 4 TABLETS BY MOUTH EVERY MORNING X2DAYS 0H7LYVD, 1O2LQIH, 1Z6BOZB THEN OFF 12/24 completed Not Available Not [...] e 50 mcg/actua tion nasal spray,moises pension [place] 1 spray every day by nasal route. [...] e 205.5 mcg (0.15 %) nasal spray [place] 1 spray twice a day by intranas [...] Not Available Not Available Not Available Afluria [id number] (PF) 45 mcg (15 mcg x 3)/0.5 [...] t Available Vitals Date Recorded Body height Body mass index (BMI) Body weight Heart rate Systolic blood pressure Diastolic blood pressure Provider Name and Address Organization Details Last Updated DateTime 2 180.34 cm 46 kg/m2 499831. 48 g 76 /min 134 mm[Hg] 74 mm[Hg] Akosua Kidd [facility] 2 08:48:02 Date Recorded Body height Body mass index (BMI) Body weight Heart rate Systolic blood pressure Diastolic blood pressure Provider Name and Address Organization Details Last Updated DateTime 3 180.34 cm 47.4 kg/m2 795788. 41 g 61 /min 136 mm[Hg] 72 mm[Hg] Akosua Kidd [facility] 3 08:48:33 Date Recorded Body height Body mass index (BMI) Body weight Heart rate Systolic blood pressure Diastolic blood pressure Provider Name and Address Organization Details Last Updated DateTime 2 180.34 cm 45.2 kg/m2 796443. 93 g 58 /min 150 mm[Hg] 76 mm[Hg] Akosua Kidd [facility] 2 11:52:32 Date Recorded Body height Body mass index (BMI) Body weight Systolic blood pressure Diastolic blood pressure Provider Name and Address Organization Details Last Updated DateTime 03/05/2022 180.34 cm 45.2 kg/m2 596819.9 3 g 130 mm[Hg] 72 mm[Hg] Burton dominguez [facility] 2 10:06:14 Date Recorded Body height Body mass index (BMI) Body weight Heart rate Respiratory rate Body temperature Oxygen saturation Oxygen saturation in Arterial blood by Pulse oximetry Systolic blood pressure Diastolic blood pressure Provider Name and Address Organization Details Last Updated DateTime 2 180.34 cm 46.2 kg/m2 863065. 07 g 76 /min 18 /min 97.4 [degF] 87 % 87 % 134 mm[Hg] 84 mm[Hg] Domonique Benton [facility] 2 16:28:31 Social History Question Answer Notes LastModified [...] SNOMED-CT Code Diagnosis ICD10 Code Diagnosis Note [id number] AARON KOLB MD [facility] [address] [address] 08/26/2016 09:43:05 08/26/2016 10:41:49 Lumbar radiculopathy 235538163 M54.16 [id number] AARON KOLB MD [facility] [address] [address] 10/07/2016 10:00:44 10/07/2016 10:35:13 Lumbar radiculopathy 774382835 M54.16 [id number] AARON KOLB MD [facility] [address] [address] 10/28/2016 11:17:17 10/28/2016 11:52:59 Lumbar radiculopathy 246080237 M54.16 [id number] RIVERA VALDEZ [facility] [address] [address] 01/29/2017 09:08:04 01/29/2017 10:06:57 Lumbar radiculopathy 970068682 M54.16 [id number] JUSTICE ROBERSON MD,MPH [facility]/ONCOLOG Y AT [address] [address] 08/28/2017 13:17:35 08/28/2017 14:34:11 History of deep vein thrombosis 478456882 Z86.718 History of pulmonary embolus 568675265 Z86.711 Anemia 696411396 D64.9 [id number] GWEN Osborn MD [facility] Y/ONCOLOG Y AT [address] [address] 02/25/2018 15:08:18 02/25/2018 15:59:29 History of pulmonary embolus 029646098 Z86.711 I discussed with Mr. Dolan today [...] most c/w morbid obesity and COPD Leukocytosis 567934414 D 72.829 [id number] GWEN Osborn MD [facility] HEMATOLOG Y/ONCOLOG Y AT [address] [address] 08/28/2018 14:37:43 09/01/2018 12:44:19 Leukocytosis 525473273 D72.829 Stable. Mild leukocytos is with neutrophil ia - stable from 05/2017 -- most c/w morbid obesity and COPD Pulmonary embolism 88519 003 I26.99 Doing very well on eliquis; [...] comp (to check lfts/cr) and cbc prior. [id number] GWEN Osborn MD [facility] HEMATOLOG Y/ONCOLOG Y AT [address] [address] 02/26/2019 13:36:08 02/26/2019 14:08:06 Pulmonary embolism 36309188 I26.99 Mr. Dolan is doing very well [...] also has chronic carbon dioxide retention Leukocytosis 348537069 D 72.829 Stable. Mild leukocytos is with neutrophil ia - stable from 05/2017 -- most c/w morbid obesity and COPD currently on chronic steroids Recurrent pneumonia 6990 [address]184 J18.9 This is the second time that he had been hospitaliz ed in the past 6 months for pneumonia. He also had multiple infections requiring steroid treatment as well as antibiotic s. I am going to check quantitati ve immunoglob ulins on him and see whether he will benefit from some IVIG infusion [id number] GWEN Osborn MD [facility] HEMATOLOG Y/ONCOLOG Y AT [address] [address] 09/03/2019 14:55:38 09/03/2019 15:32:14 Pulmonary embolism 41928517 I26.99 Mr. Dolan is doing very well on eliquis. He denies any bleed/new blood clots or bruising. He was off the eliquis during his colonoscop y and denies any clots during the time. PLAN: 1. Continue the Apixaban 5 mg po bid 2. Follow up in 12 months or earlier if needed Leukocytosis 433234619 D 72.829 Stable. Resolved Mild leukocytos is with neutrophil ia - stable from 05/2017 -- most c/w morbid obesity and COPD; off and on steroids Recurrent pneumonia 6990 02486 J18.9 None since the last visit and the immunoglob ulins are within normal limits except for a slightly low IgM in 01/2019. No plans for any interventi ons [id number] Drew Huerta [facility] [address] [place] [address] 12/02/2019 09:55:34 12/02/2019 10:54:09 History of pulmonary embolus 025083668 Z86.711 04/29/17 - hospitaliz ed with pulmonary embolism. Continue anticoagul ation with Eliquis. Essential hypertension 44360157 I10 Current status is stable 136/84. BP today Continue current medication s. advised to monitor BP at home and keep a log. Atrial flutter 4319869 I 48.92 stable - no recurrence 12/04/15 [...] Eliquis because of previous pulmonary embolus (04/29/17). [id number] Drew Huerta [facility] [address] [facility] [place] [address] 01/20/2020 08:58:18 01/20/2020 10:06:43 Atrial flutter 7311411 I48.92 Recent recurrence during hospitaliz ation on 12/22/2019 at [facility] bsequently transition to atrial fibrillati on and then to sinus rhythmNow on amiodarone 200 mg daily 12/04/15 - ABLATION -- ATRIAL FLUTTER --> complicate d by right groin hematoma, warfarin held for one week - ABLATION of Atrial Flutter (right-chanelle ed, clockwise) , complicate d by groin hematoma which is improving. 03/06/15 - recurrent atrial garegbf87/ 18/15 - CARDIOVERS ION -- Atrial Flutter [...] Continue current medication History of pulmonary embolus 019456874 Z86.711 04/29/17 - hospitaliz ed with pulmonary embolism. Continue anticoagul ation with Eliquis. Essential hypertension 26174094 I10 Current status is stableBloo d pressure today is 130/73 but has been running 100/60 at home Stop amlodipine advised to monitor BP at home and keep a log. Peripheral edema 1848005 00 R60.9 cont LASIX 40 mg twice daily [id number] ALLY HAYNES MD [facility] [address] 01/20/2020 08:13:42 01/20/2020 08:42:37 Hyperthyroidism 04260699 E05.90 59 y/o male with hyperthyro idism here for further evaluation .He is clinically euthyroid to slightly hyperthyro id.The cause of his hyperthyro idism is not clear.Paul mmend repeat labs today.If his TSH is still low, to obtain a thyroid scan and uptake.He will be informed of his results once available and given further recommenda tions.F/U in 3 months. [id number] ALLY HAYNES MD [facility] [address] [place] [address] [place], [place] [address] 05/04/2020 08:23:35 05/04/2020 08:41:17 Hyperthyroidism 76479003 E05.90 59 y/o male with hyperthyro idism here for the follow up.He is clinically euthyroidR ecommend repeat labs today.He will be informed of his results once they are available. Follow up as needed. [id number] Drew Huerta [facility] [address], [place] [address] 07/20/2020 08:33:35 07/20/2020 09:13:20 Atrial flutter 6807707 I48.92 Recent recurrence during hospitaliz ation on 12/22/2019 at [facility] bsequently transition to atrial fibrillati on and then to sinus rhythmNow on amiodarone 200 mg daily12/04 - ABLATION -- ATRIAL FLUTTER --> complicate d by right groin hematoma, warfarin held for one week - ABLATION of Atrial Flutter (right-chanelle ed, clockwise) , complicate d by groin hematoma which is improving. 03/06/15 - recurrent atrial mnntjzu19/ 18/15 - CARDIOVERS ION -- Atrial Flutter [...] Continue current medication History of pulmonary embolus 566187111 Z86.711 04/29/17 - hospitaliz ed with pulmonary embolism.C ontinue anticoagul ation with Eliquis. Peripheral edema 9673027 00 R60.9 cont LASIX 40 mg twice daily Essential hypertension 43761203 I10 Current status is stableBloo d pressure today is 132/80BP at home averages 130/80 previously stopped amlodipine advised to monitor BP at home and keep a log. [id number] Drew Deanna [facility] [address] [facility] [address] [place] [address] 01/23/2021 15:13:08 01/24/2021 13:51:19 Atrial flutter 6370281 I48.92 stableno recurrence Last recurrence during hospitaliz ation on 12/22/2019 at [facility] bsequently transition to atrial fibrillati on [...] Continue current medication History of pulmonary embolus 138071746 Z86.711 04/29/17 - hospitaliz ed with pulmonary embolism.C ontinue anticoagul ation with Eliquis. Peripheral edema 0203918 00 R60.9 cont LASIX 40 mg twice daily Essential hypertension 89918469 I10 Blood pressure today is 164/80BP at home averages 130/80 previously stopped amlodipine advised to monitor BP at home and keep a log. [id number] JANNA GODOY MD [facility] [address] [facility], [address] [place] [address] 01/31/2021 09:01:06 01/31/2021 10:25:57 Rotator cuff arthropathy of left shoulder 6807739236 1489786 M25.812 [id number] ALLY HAYNES MD [facility] [address] [place] [address] 03/08/2021 07:58:12 03/08/2021 08:15:50 Hyperthyroidism 31825627 E05.90 60 y/o male with hyperthyro idism here for the follow up.He is clinically euthyroidR ecommend repeat labs today.He will be informed of his results once they are available. Follow up in 6 months. [id number] Drew Huerta [facility] [address] [facility] [address] [place] [address] 12/24/2021 11:40:42 12/24/2021 12:18:34 Atrial flutter 6584671 I48.92 stableno recurrence Last recurrence during hospitaliz ation on 12/22/2019 at [facility] bsequently transition to atrial fibrillati on [...] Continue current medication History of pulmonary embolus 059347648 Z86.711 04/29/17 - hospitaliz ed with pulmonary embolism.C ontinue anticoagul ation with Eliquis. Peripheral edema 1594996 00 R60.9 cont LASIX 40 mg twice daily Essential hypertension 49239384 I10 Blood pressure today is 150/76BP at home averages 130/80 previously stopped amlodipine advised to monitor BP at home and keep a log. [id number] ALLY HAYNES MD [facility] [address] [facility] [address] [place] [address] 09/04/2021 06:56:25 09/04/2021 07:29:04 Hyperthyroidism 64072672 E05.90 60 y/o male with hyperthyro idism seen for the follow up utilizing telehealth .He seems clinically euthyroidR ecommend repeat labs. He will orange picker the lab slip from here today.He will be informed of his results once they are available. He does not require any active treatment at this time.Follo w up in 1 year. Atrial fibrillation 4943 6004 I48.91 Continue eliquis, diltiazem CD 240 mg QD and metoprolol ER 100 mg QD. Chronic ob structive pulmonary disease 83214312 J44.9 Continue symbicort and proair as needed [id number] ALLY HAYNES MD [facility] [address] [facility] [address] [place] [address] 12/13/2021 07:10:40 12/13/2021 07:29:48 Hyperthyroidism 92157356 E05.90 61 y/o male with hyperthyro idism [...] mg QD. Chronic ob structive pulmonary disease 61830494 J44.9 Continue symbicort and proair as needed [id number] GENI MCGHEE MD [facility] [address] [facility] [address] [place] [address] 03/05/2022 09:38:31 03/05/2022 10:38:43 History of deep vein thrombosis 118971138 Z86.718 Peripheral venous insufficiency 90918542 I87.2 Lymphedema of limbs due to immobility, chronic dependency and/or venous insufficiency 419741065 I89.0 Morbid obesity 620329747 E66.01 [id number] ALLY HAYNES MD [facility] SPECIAL[facility] [address] [place] [address] [address] [place] [address] 03/19/2022 16:23:53 03/19/2022 16:35:45 Hyperthyroidism 15824939 E05.90 61 y/o male with hyperthyro idism here for the follow-up. He seems clinically euthyroidR epeat TSH and free T4. Continue methimazol e 5 mg daily for now.Follow up 3 months. Atrial fibrillation 4943 6004 I48.91 Continue eliquis, diltiazem CD 240 mg QD and metoprolol ER 100 mg QD. Chronic ob structive pulmonary disease 50876988 J44.9 Continue symbicort and proair as needed [id number] Drew Huerta [facility] [facility] [address] [place] [address] 06/17/2022 08:33:28 06/17/2022 09:09:01 Atrial flutter 4987118 I48.92 stableno recurrence Last recurrence during hospitaliz ation on 12/22/2019 at [facility] bsequently transition to atrial fibrillati on [...] Continue current medication History of pulmonary embolus 670058377 Z86.711 04/29/17 - hospitaliz ed with pulmonary embolism.C ontinue anticoagul ation with Eliquis. Peripheral edema 5058995 00 R60.9 cont LASIX 40 mg twice daily Essential hypertension 80990219 I10 Blood pressure today is 134/74BP at home averages 130/80 previously stopped amlodipine advised to monitor BP at home and keep a log. [id number] Drew Huerta [facility] [address] [place] [address] 12/30/2022 08:30:02 12/30/2022 09:08:13 Atrial flutter 9488907 I48.92 stableno recurrence Last recurrence during hospitaliz ation on 12/22/2019 at [facility] bsequently transition to atrial fibrillati on [...] Continue current medication History of pulmonary embolus 719464883 Z86.711 04/29/17 - hospitaliz ed with pulmonary embolism.C ontinue anticoagul ation with Eliquis. Peripheral edema 2503426 00 R60.9 cont LASIX 40 mg twice daily Essential hypertension 18562023 I10 Blood pressure today is 136/72BP at [...] Joyner Member ID Guarantor Name 12/24/2021 1 [facility]UE [facility] [id number] Lissy Garcia [id number] Oly Dolan 03/05/2022 1 [place] [id number] Lissy Garcia [id number] Oly Dolan 03/19/2022 1 [place] [id number] Lissy Garcia [id number] Oly Dolan 06/17/2022 1 [place] [id number] Lissy Garcia [id number] Oly Dolan 12/30/2022 1 [place] [id number] Oly Dolan [id number] Oly Dolan Notes Date Note Type Note Provider Name and Address Organization Details Recorded Time 12/24/2021 text/html The patient is a 61 year old male whose cardiac / medical problems are listed below. Patient is seen today for continued evaluation and management of atrial flutter and hypertension. Admitted to [facility] on 12/14/2019 with pneumonia and COPD exacerbation, oxygen desaturation at 69%. Told to use oxygen at home 23/06. Now using oxygen at night with CPAP, as needed during the day, and while on treadmill. Seen by his make up girl Dr. Gomes on 12/21/2019 Admitted to [facility] on 12/22/2019 with pneumonia, COPD exacerbation, elevated heart rate initially with atrial flutter, then atrial fibrillation, and then conversion to sinus rhythm. Subsequently sent to [place] for 2 weeks and home for 1 [...] syncope, palpitations, symptoms of claudication. Drew Huerta [address] [place] [address], [address], [facility] 12/24/2021 12:23:51 03/05/2022 text/html 61-year-old zaynab peters [...] for further treatment recommendations. GENI MCGHEE MD [address] [place] [address], [phone], [facility] 03/05/2022 10:57:02 03/19/2022 text/html Mr. Dolan is [...] offers no other complaints. ALLY HAYNES MD [address] [place] [address], [phone], [facility] 03/19/2022 16:37:26 06/17/2022 text/html The patient is a 61 year old male whose cardiac / medical problems are listed below. Patient is seen today for continued evaluation and management of atrial flutter and hypertension. Admitted to [facility] on 12/14/2019 with pneumonia and COPD exacerbation, oxygen desaturation at 69%. Told to use oxygen at home 24/7. Now using oxygen at night with CPAP, as needed during the day, and while on treadmill. Seen by his make up girl Dr. Gomes on 12/21/2019 Admitted to [facility] on 12/22/2019 with pneumonia, COPD exacerbation, elevated heart rate initially with atrial flutter, then atrial fibrillation, and then conversion to sinus rhythm. Subsequently sent to [place] for 2 weeks and home for 1 [...] lightheadedness, syncope, palpitations, symptoms of claudication. Drew Deanna [address] [place] [address], [address], [facility] 06/17/2022 09:40:08 12/30/2022 text/html The patient is a 62 year old male whose cardiac / medical problems are listed below. Patient is seen today for continued evaluation and management of atrial flutter and hypertension. Admitted to [facility] on 12/14/2019 with pneumonia and COPD exacerbation, oxygen desaturation at 69%. Told to use oxygen at home 24/7. Now using oxygen at night with CPAP, as needed during the day, and while on treadmill. Seen by his make up girl Dr. Gomes on 12/21/2019 Admitted to [facility] on 12/22/2019 with pneumonia, COPD exacerbation, elevated heart rate initially with atrial flutter, then atrial fibrillation, and then conversion to sinus rhythm. Subsequently sent to [place] for 2 weeks and home for 1 [...] syncope, palpitations, symptoms of claudication. Drew Huerta [address] [place] [address], [phone], [facility] 12/30/2022 09:08:09
[2025-01-03 14:48] LABS: Anion Gap 13 (12-20); Blood Urea Nitrogen 18 mg/dL (9-16); Carbon Dioxide 35 mmol/L (22-29); Chloride 97 mmol/L (96-108); Estimated Glomerular Filt Rate > 60; Glucose Random 93 mg/dL (60-115); Iron 29 mcg/dL (45-160); Percent Iron Saturation 9 % (15-50); Potassium 4.3 mmol/L (3.3-5.1); Sodium 141 mmol/L (135-145); Total Iron Binding Capacity 329 mcg/dL (228-428); Unsaturated Iron Binding 300 ug/dL
== END 2025-01-03 12:08 | disposition home or self-care (01) ==
LOC: HO.LAB 12:07
PROVIDERS: Absent Provider Internal Medicine; PCP Internal Medicine; Visit Provider Hospitalist
DX: J96.21 Acute and chronic respiratory failure with hypoxia (principal); E61.1 Iron deficiency; D64.9 Anemia, unspecified
CPT/HCPCS: 36415; 80048; 82803; 83540; 85027

== ENCOUNTER 2025-02-03 10:26 | Outpatient (AMB) | payer BC, SELFPAY ==
[2025-02-03 10:29] VITALS: BP 170/88; PULSE 74; O2SAT 85; BMI 47.2
--- NOTE | 2025-02-03 10:29 | MHC.OFFVIS ---
Vital Signs 02/03/25 10:29 Height 5 ft 11 in Weight 338 lb 6.553 oz BMI 47.2 BP 170/88 H Blood Pressure Location Rt brachial Position Sitting Pulse 74 Pulse Source Pulse Oximeter Pulse Oximetry (%) 85 L Oxygen Delivery Method Nasal Cannula Oxygen Flow Rate 5 Intake Visit Reasons: COPD Allergies No Known Allergies Allergy (Verified 02/03/25 10:33) HPI Comments Details: The patient is a 64 y/o man with a PMH morbid obesity, chronic hypoxic respiratory failure due to COPD, OHS, DEVIN, chronic diastolic chf, htn, paroxysmal afib s/p ablation, hyperthyroid, history of pe, presented with dyspnea to the [facility] in early July. The patient states his sob has been getting progressively worse over last 2 months. initially on exertion, now at rest. has been needing to increase his home o2 supplement. recent PFTs may 2023 showed severe obstruction with FEV1 - 21%. The patient typically responds well to prednisone. He started feeling better. During the hospitalization he did have an ABG demonstrating a chronic hypercarbic respiratory failure secondary to likely has advanced COPD. He does use a BiPAP or a noninvasive ventilator at home. Will try to get a download from his [employer] company, [employer]. In the meantime he is completing the prednisone taper. Will go ahead and optimize his respiratory therapy by switching over to Trelegy. She continues use the oxygen with good effect. He was participating in pulmonary rehabilitation when he was sent to the ER. He is going to try to get back to pulmonary rehabilitation at this time. If the patient is not better once he completes the prednisone and would like to restart his lower dose he will call for additional prednisone. 10/15/2023 the patient is here for hospital follow-up visit. Apparently he ended up developing an upper respiratory illness and subsequently worsening worsening respiratory symptoms. He was admitted to the [facility]. Viral swab positive for enterovirus. The patient also was noted to have a chest x-ray perihilar congestion consistent with mild heart failure. He was placed on diuretics. The patient was placed on prednisone. He continue using his BiPAP. He did have a blood gas in the hospital demonstrating chronic hypercarbic respiratory failure. He has been using his AVAP. [employer] is [employer]. Will request a download at this time and further adjust the AVAP accordingly. We did review his imaging studies demonstrating the mild heart failure. The patient understands that he will continue with a low-sodium diet. New continue with current respiratory therapy. 01/02/2024 the patient has a telehealth visit today. Recently he developed COVID-19. The patient does take Eliquis and also he is on antiarrhythmic agents. Therefore we placed him on Mulnopinivir. the patient completed a 5 day course any responded very well to it. His chest congestion is improved his breathing is also improved. Overall he is in recovery. He continues use the noninvasive ventilator at nighttime. He has been affecting beneficial. He does use it for more than 4 hours a night. Will plan to repeat his venous blood gas to assess his CO2 and make sure that is responding well to the noninvasive ventilator. In addition to that he continues use the oxygen. He did use the oxygen more often when was sick with COVID-19. Right now is closer to his baseline. The patient does have increased chest congestion so therefore will go ahead and start him on doxycycline case symptoms worsen. The patient should also have some prednisone available in case develops reactive airway disease after having COVID. At this point he can hold off unless his symptoms worsen as well. Will follow-up in 3-4 months and at that point will review his blood work. 05/31/2024 the patient is here for a pulmonary follow-up visit. Overall the patient has been doing well. He continues uses respiratory therapy with good effect. He has been working on weight loss. He is looking into also participating in the weight loss program. He did take down some information. The meantime he continues using noninvasive ventilator at nighttime. The astral has been affecting beneficial. He did have a repeat blood gas demonstrating his PaCO2 has gone down from 80 mmHg to now 57 mmHg which is excellent. He has been getting supplies readily from the [employer]. He had a last CT scan back in the winter of 2023 still demonstrating the masslike density consistent with developed the atelectasis. Has not changed so is likely to be a benign process. Will discuss further imaging study during the next visit. He continues on the anticoagulation with good effect. Otherwise patient is without any other concerns. 12/06/2024 the patient is here for a pulmonary follow-up visit. Overall the patient seems to be doing fair. He was doing better but then about 3 days ago he started developing worsening shortness of breath and hypoxia. He has been noticing that his oxygen pulse ox has been dipping down to the mid 80s. He had been in the hospital we did review his hospital stay. Actually did see him while he was there and adjusted his noninvasive ventilator while he was there. Seems that the setting some back to his previous ones though we need to increase the pressures. I am going to request access to air view if not send a prescription over to his [employer] company. In the meantime the patient has been having significant amount of weight gain. Likely volume overload at this time resulting in congestive heart failure and worsening hypoxia. He has Lasix 40 mg b.i.d.. Will go ahead and double that to 80 mg b.i.d. for 3 days. He is going to monitor closely his weight. If however his oxygen does not improve or if it worsens he is going to go to the ER for further evaluation. Currently I believe on 4 L and improved his pulse ox to the low 90s. He is going to keep it at 4 L for now. Again, if his symptoms worsen if his hypoxia worsens he needs to go the ER. It become back in 2 weeks so we can reassess. Hopefully we can adjust his astral and he can also make some dietary changes specially since he does take or consume significant amount of sodium in his drinks. 12/23/2024 the patient is here for a pulmonary follow-up visit. The patient is still struggling with his noninvasive ventilator. The pressures are not high enough. We did send a prescription to the [employer] but they have not adjusted as of yet. He did bring his machine in a did evaluated. Seems like he has to patient's settings P1 and P2 and therefore even though we had adjusted in the hospital he is using the different setting. Therefore I adjusted both. I have to reach out to [facility] so they can raise P 1. We did increase his minimum pressure to 10 from 5 increased his maximum pressure to 22 from 10. Also changed his auto EPAP to 8-10. The patient has respiratory rate was increased from 15-16. He did try the off any seem to tolerated okay. Breathing is better. His monitoring closely his weight and is taking his diuretics. He will go ahead and have blood work including a blood gas the coming days. Will adjust his noninvasive accordingly. 02/03/2025 The patient is here for a pulmonary follow up visit. The patient is doing better with the IVAPS, tolerating the pressures better. The therapy has been effective and beneficial. He also started using a POC, although, his oxygen requierements have been going up and the conserving device is not enough at times. He does increase to 5l/pulse with activity, but still drops to the mid 80's. We will continue to monitor, but may need to return to the gas tanks. He continues to use his respiratory therapy with good effect. He will undergo bloodwork foe his F/U and then consider repeating the PFTs and pulmonary rehab. However, right now his is helping his with a serious health condition. [facility] Medical History (Updated 12/06/24 @ 22:39 by Ronak Mills MD) Acute on chronic diastolic (congestive) heart failure Hypoventilation associated with obesity syndrome COPD exacerbation Hx of atrial flutter Obesity DEVIN (obstructive sleep apnea) COPD (chronic obstructive pulmonary disease) Chronic diastolic heart failure Acute exacerbation of chronic obstructive airways disease Hyperthyroidism Venous insufficiency of both lower extremities Chronic respiratory failure Hx pulmonary embolism PAF (paroxysmal atrial fibrillation) Lung mass Surgical History (Updated 11/03/24 @ 13:53 by AMANUEL Mcdonnell) History of esophagogastroduodenoscopy (EGD) H/O cardiac radiofrequency ablation Family History Father Bone cancer Mother COPD (chronic obstructive pulmonary disease) Social History Household Members: Spouse Household Members Other:: Housing: House Do you presently have visiting nurse or other home services: No Unable to assess alcohol history related to: Unknown Alcohol intake: current Alcohol intake frequency: holidays/special occasions only Patient Tobacco Use Status: Former Tobacco user Tobacco use type: Cigarette Cigarette Packs Per Day: 1.5 Cigarettes Per Day: 30.0 Years Smoked: 25 e-Cigarette/Vaping Use: Never Used Second Hand Smoke Exposure: No Advance Directives Date on File: 07/14/23 service: No Current occupational status: employed Cognitive needs: No Hearing needs: No Vision needs: Yes Review of Systems Const Denies fever(s) and Reports weight loss Eyes Denies exophthalmos Card Denies chest pain and Reports dyspnea on exertion Resp Reports chest congestion, Reports cough, Reports dyspnea on exertion and Denies wheezing GI Reports no additional complaints Musc Reports no additional complaints Skin/Breast Denies rash Neuro Reports no additional complaints Venu/Lymph Denies lymphadenopathy Aller/Immun Denies wheezing Physical Exam Vital Signs: Last Vital Signs Pulse 74 02/03/25 10:29 BP 170/88 H 02/03/25 10:29 Pulse Ox 85 L 02/03/25 10:29 Oxygen Delivery Method Nasal Cannula 02/03/25 10:29 Oxygen Flow Rate 5 02/03/25 10:29 BMI result Body Mass Index 47.2 Last Vital Signs Temp 97.6 F 10/23/24 12:00 Pulse 71 10/23/24 12:00 Resp 20 10/23/24 12:00 BP 117/70 10/23/24 12:00 Pulse Ox 90 L 10/23/24 12:00 O2 Del Method BiPAP 10/23/24 12:00 O2 Flow Rate 4 10/23/24 08:00 Oxygen Flow Rate 2 10/18/24 12:52 BMI result Body Mass Index 46.6 Const General: cooperative, comfortable, no acute distress, alert and awake Nutritional Appearance: obese morbidly obese Orientation/consciousness: patient oriented x3 Limitations: no limitations HEENT Head: Yes normocephalic and Yes atraumatic Neck Neck: Yes trachea midline, Yes supple and Yes no JVD Chest Chest palpation & inspection: normal inspection of the chest Resp Effort & Inspection: normal respiratory effort Auscultation: diminished lung sounds Cardio Jugular venous distension: no JVD Palpation: normal PMI Rate: regular rate Rhythm: regular rhythm Heart sounds: S1 normal heart sound present, S2 normal heart sound present, no click, no gallops and no murmurs GI Auscultation: normal bowel sounds Skin General skin exam: no rashes or lesions noted Neuro General: patient oriented x3 and no focal motor deficits Extrem General: Yes no clubbing, cyanosis or edema Psych Appearance: grossly normal Assessment & Plan Assessment & Plan (1) COPD (chronic obstructive pulmonary disease): Comment: Severe on supplemental O2 and BiPAP, follow-up with pulmonology Code(s): J44.9 - Chronic obstructive pulmonary disease, unspecified Category: Medical Qualifiers: COPD type: COPD with acute exacerbation Qualified Code(s): J44.1 - Chronic obstructive pulmonary disease with (acute) exacerbation (2) Chronic respiratory failure: Comment: on supplemental O2 PRN Code(s): J96.10 - Chronic respiratory failure, unspecified whether with hypoxia or hypercapnia Category: Medical Qualifiers: Respiratory failure complication: hypoxia and hypercapnia Qualified Code(s): J96.11 - Chronic respiratory failure with hypoxia; J96.12 - Chronic respiratory failure with hypercapnia (3) Hx pulmonary embolism: Comment: 2013, on lifetime anticoagulation Code(s): Z86.711 - Personal history of pulmonary embolism Category: Medical (4) Sleep apnea: Code(s): G47.30 - Sleep apnea, unspecified Category: Medical Qualifiers: Sleep apnea type: obstructive Qualified Code(s): G47.33 - Obstructive sleep apnea (adult) (pediatric) (5) Lung mass: Code(s): R91.8 - Other nonspecific abnormal finding of lung field Category: Medical (6) Hypoventilation associated with obesity syndrome: Code(s): E66.2 - Morbid (severe) obesity with alveolar hypoventilation Category: Medical (7) Acute and chronic respiratory failure: Code(s): J96.20 - Acute and chronic respiratory failure, unspecified whether with hypoxia or hypercapnia Category: Medical Qualifiers: Respiratory failure complication: hypoxia Qualified Code(s): J96.21 - Acute and chronic respiratory failure with hypoxia Plan continue Trelegy Continue Daliresp REY as needed continue oxygen supplementation, POC 3- 5L/pulse to keep pox>87%. Consider going back on oxygen tanks due to his high oxygen need Astral AVAPS at night, adjusted min PS 10;maxPS22, aEPAP 8-10, RR17 continue Eliquis diureses as tolerated lung mass likely rounded atelectasis associated with a calcified pleural plaque bloodwok, VBG F/U 6-8 weeks Orders: Orders Complete Blood Count Auto Diff Today J96.21 - Acute and chronic respiratory failure with hypoxia Venous Blood Gas Today J96.21 - Acute and chronic respiratory failure with hypoxia Basic Metabolic Panel Today J96.21 - Acute and chronic respiratory failure with hypoxia Medications: New ipratropium-albuterol 20-100 mcg/actuation (Combivent Respimat) space evenly during waking hours 1 puff inhalation QID 4 grams 11RF 30 days Coding Level of Care Code Est Pt Level 4 (34197) Complex EM visit Add On G2211 Diagnoses Chronic obstructive pulmonary disease with acute exacerbation J44.1 COPD type: COPD with acute exacerbation Chronic respiratory failure with hypoxia and hypercapnia J96.11; J96.12 Respiratory failure complication: hypoxia and hypercapnia Hx pulmonary embolism Z86.711 Obstructive sleep apnea syndrome G47.33 Sleep apnea type: obstructive Lung mass R91.8 Hypoventilation associated with obesity syndrome E66.2 Acute on chronic respiratory failure with hypoxia J96.21 Respiratory failure complication: hypoxia Time Spent (min) 16
== END 2025-02-03 11:01 | disposition home or self-care (01) ==
PROVIDERS: PCP Internal Medicine; Visit Provider Hospitalist
DX: J44.1 Chronic obstructive pulmonary disease with (acute) exacerbation (principal); J96.11 Chronic respiratory failure with hypoxia; J96.12 Chronic respiratory failure with hypercapnia; Z86.711 Personal history of pulmonary embolism; G47.33 Obstructive sleep apnea (adult) (pediatric); R91.8 Other nonspecific abnormal finding of lung field; E66.2 Morbid (severe) obesity with alveolar hypoventilation; J96.21 Acute and chronic respiratory failure with hypoxia
CPT/HCPCS: 99214

== ENCOUNTER 2025-04-20 13:26 | Outpatient (AMB) | payer BC, SELFPAY ==
[2025-04-20 13:44] VITALS: BP 162/70; PULSE 97; BMI 47.2
--- NOTE | 2025-04-20 13:44 | A.OFFVIS_ITS ---
Vital Signs 04/20/25 13:44 Height 5 ft 11 in Weight 338 lb 3.025 oz BMI 47.2 BP 162/70 H Blood Pressure Location Lt brachial Position Sitting Pulse 97 Pulse Source Monitor Intake Visit Reasons: 6m follow up Literacy Consultant Required: No Accompanied by: Self / Same As Patient Allergies No Known Allergies Allergy (Verified 02/03/25 10:33) Medication List - Last Reconciled 04/20/25 by Josesito Thorne MD acetaminophen 1,000 mg PO Q6H PRN apixaban (Eliquis) 5 mg PO BID cholecalciferol (vitamin D3) 25 mcg PO BEDTIME compr.stocking,knee,long,large As directed CPAP (CPAP Machine/Device) As directed diltiazem HCl ER 240 mg PO BEDTIME 90 days dronedarone (Multaq) 400 mg PO BID ferrous sulfate 325 mg PO MOTUWETHFR@0900 ugsenbghwby-opdfkfbzd-rsuvqxsa 200-62.5-25 mcg (Trelegy Ellipta) 1 inh inhalation DAILY 90 days furosemide 40 mg PO BID ipratropium-albuterol 20-100 mcg/actuation (Combivent Respimat) 1 puff inhalation QID 30 days levalbuterol HCl 1.25 mg (3 mL) inhalation BID 30 days methimazole 2.5 mg (1/2 x 5 mg) PO BEDTIME metoprolol succinate ER 100 mg PO BEDTIME multivitamin 1 tab PO BEDTIME nebulizers As directed omeprazole magnesium 20 mg PO DAILY@0630 Oxygen Home Use As directed peg 3350-electrolytes 236-22.74-6.74 -5.86 gram (Golytely) 240 mL PO Q10M roflumilast 500 mcg PO BEDTIME 90 days thiamine HCl (vitamin B1) 500 mg PO BEDTIME vitamin E 268 mg PO BEDTIME HPI Comments Details: Mario returns for follow-up regarding atrial fibrillation/flutter. Previously lived in [place] [facility]. Apparently around 10+ years ago he was playing golf at that time hurt his calf muscle. That led to DVT and in that setting also developed pulmonary embolism. Consequently, developed atrial flutter. Apparently underwent cardioversion couple of times last at least 8 years ago. Then according to him, he underwent 2 ablations. Then according to patient 1 further episode of atrial fibrillation in 2019 in the setting of pneumonia. He was maintained on amiodarone for many years but we switched that to Multaq because of his age. Overall, he is about the same as before. Breathing is unchanged. He has got COPD as well as obstructive sleep apnea on supplemental oxygen. No clear-cut cardiac symptoms. No palpitations. [facility] Medical History (Updated 04/20/25 @ 14:27 by Josesito Thorne MD) Acute on chronic diastolic (congestive) heart failure Hypoventilation associated with obesity syndrome COPD exacerbation Hx of atrial flutter Obesity DEVIN (obstructive sleep apnea) COPD (chronic obstructive pulmonary disease) Chronic diastolic heart failure Acute exacerbation of chronic obstructive airways disease Hyperthyroidism Venous insufficiency of both lower extremities Chronic respiratory failure Hx pulmonary embolism PAF (paroxysmal atrial fibrillation) Lung mass Surgical History History of esophagogastroduodenoscopy (EGD) H/O cardiac radiofrequency ablation Family History Father Bone cancer Mother COPD (chronic obstructive pulmonary disease) Social History Household Members: Spouse Household Members Other:: Housing: House Do you presently have visiting nurse or other home services: No Unable to assess alcohol history related to: Unknown Alcohol intake: current Alcohol intake frequency: holidays/special occasions only Patient Tobacco Use Status: Former Tobacco user Tobacco use type: Cigarette Cigarette Packs Per Day: 1.5 Cigarettes Per Day: 30.0 Years Smoked: 25 e-Cigarette/Vaping Use: Never Used Second Hand Smoke Exposure: No Advance Directives Date on File: 07/14/23 service: No Current occupational status: employed Cognitive needs: No Hearing needs: No Vision needs: Yes Review of Systems Const Denies chills, Denies fatigue, Denies fever(s), Denies frequent falls, Denies weakness, Denies weight gain and Denies weight loss ENT Denies dizziness Card Denies chest pain, Denies leg edema, Denies lightheadedness, Denies palpitations, Denies dyspnea and Denies dyspnea on exertion Resp Denies cough, Denies dyspnea and Denies dyspnea on exertion GI Denies hematochezia Musc Denies abnormal gait, Denies muscle weakness, Denies numbness, Denies radiating pain into limb and Denies tingling Neuro Denies abnormal gait, Denies dizziness, Denies frequent falls, Denies numbness, Denies tingling and Denies weakness Endo Denies fatigue and Denies palpitations Physical Exam Vital Signs: Last Vital Signs Pulse 97 04/20/25 13:44 BP 162/70 H 04/20/25 13:44 BMI result Body Mass Index 47.2 Const General: comfortable and no acute distress Orientation/consciousness: patient oriented x3 HEENT Other: Unremarkable Head: Yes normal to inspection Neck Neck: Yes normal visual inspection Chest Chest palpation & inspection: normal inspection of the chest Resp Auscultation: crackles Cardio Palpation: normal PMI Heart sounds: S1 normal heart sound present, S2 normal heart sound present, no gallops, no murmurs and no rubs GI Palpation (GI): Soft to palpation Back/Spine/Pelvis Other: unremarkable Skin General skin exam: no rashes or lesions noted Neuro General: patient oriented x3 Extrem General: Yes normal to inspection Psych Mental Status: mental status grossly normal Office Procedures EKG Details: EKG with underlying sinus rhythm at 97/Min; cannot exclude old inferior or anterior infarct but more likely from body habitus; [place] [id number], Complete Assessment & Plan Assessment & Plan (1) PAF (paroxysmal atrial fibrillation): Code(s): I48.0 - Paroxysmal atrial fibrillation Category: Medical (2) Paroxysmal atrial flutter: Code(s): I48.92 - Unspecified atrial flutter Category: Medical (3) Primary hypertension: Code(s): I10 - Essential (primary) hypertension Category: Medical (4) Obesity: Code(s): E66.9 - Obesity, unspecified Category: Medical Qualifiers: Body mass index: BMI 45.0-49.9 Obesity classification: adult class 3 (BMI >= 40) Obesity type: unspecified obesity type Serious obesity comorbidity presence: with serious comorbidity Qualified Code(s): E66.01 - Morbid (severe) obesity due to excess calories; Z68.42 - Body mass index [BMI] 45.0-49.9, adult Plan Per prior records- 3 cardioversions in 2013 and 2014. Atrial flutter ablation 2014 and 2015. Report of failed flecainide therapy. In the most recent echocardiogram, low normal LVEF at 50-55%. Left atrium not well visualized. No significant valvular findings. No clear evidence of pulmonary hypertension. Last Holter with underlying sinus rhythm and an average rate of 67/Min; rare supraventricular and ventricular ectopy but otherwise unremarkable. Overall, many comorbidities including morbid obesity and COPD but reasonably stable from atrial arrhythmias standpoint. He is on a combination of Multaq, diltiazem and metoprolol and has not had any recurrent arrhythmias for a while. No changes. Continue anticoagulation again without changes. With regard to his weight, is well aware of implications but unlikely that is going to change much. With regard to blood pressure, seems to be elevated. We discussed about making med changes today but he stated that he would rather monitor his own readings at home and then contact us and we can decide then. EKG in 3 months. Follow up in 6 months. Discussion Notes During our discussion, I explained the importance of closely monitoring his blood pressure at home due to recent elevated readings and potential requirement for medication adjustments. We reviewed the necessity of holding Eliquis before his colonoscopy and emphasized continuing CPAP therapy. I encouraged consideration of endocrinology consultation given his long-term hyperthyroidism management. Weight management was acknowledged, and patient was advised to reconsider discussions with his primary care provider. The patient agreed with the proposed plan, and we discussed scheduling an EKG soon with a follow-up in six months. Patient was informed and verbally consented to the use of an ambient scribe for clinic note documentation during this visit. Patient Instructions: - Monitor blood pressure at home at least three times a week. - Hold Eliquis x 4 doses before your scheduled colonoscopy. - Keep using CPAP at night for sleep apnea. - Contact us if you experience any chest pain or palpitations or any other cardiac symptoms. - Talk to your primary care doctor about thyroid and weight management. - Return in three months for an EKG and in six months for a follow-up. Coding Level of Care Code Est Pt Level 4 (13948) Complex EM visit Add On G2211 Diagnoses PAF (paroxysmal atrial fibrillation) I48.0 Paroxysmal atrial flutter I48.92 Primary hypertension I10 Class 3 severe obesity with serious comorbidity and body mass index (BMI) of 45.0 to 49.9 in adult, unspecified obesity type E66.01; Z68.42 Body mass index: BMI 45.0-49.9 Obesity classification: adult class 3 (BMI >= 40) Obesity type: unspecified obesity type Serious obesity comorbidity presence: with serious comorbidity CPT Codes EKG - CPT: 69622-Ibjaqfvhbehvtmozx, Complete ([id number])
--- OUTSIDE RECORDS SUMMARY | 2025-04-20 14:01 | XMS_ITS ---
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 Generated for Printi katie/Makayla/eTransmitting on:?04/20/2025 02:01 PM EDT
--- OUTSIDE RECORDS SUMMARY | 2025-04-20 14:01 | XMS_ITS | Patient Health Record ---
[facility] Address [address] [place] [address] Care Team Providers Care House Director Name Role Phone Alea Hull MD Primary Care Provider Hector Brown Unavailable [phone] Allergies No Known Allergies Reason For Referral [...] 1 tablet Orally Once a day Active Gruetli Laager 3 1000 MG 1 capsule Orally Onc [...] Are you an other tobacco user? No Plan Of Treatment No Information Insurance Providers Payer Name Payer Address Payer Phone Subscriber Number Group Number Insured Name Patient Relationship to Insured Coverage Start Date Coverage End Date [facility] [address] [place] [address] [phone] [id number] Lissy Bill Spouse - patient is [...] leg surgery 01/12/24 Hospitalization History Reason Date(Month/Year) [facility] copd 10/2023 [facility] - fell 01/12/24
--- OUTSIDE RECORDS SUMMARY | 2025-04-20 14:01 | XMS_ITS ---
Author Organization [facility] Address [address] [place] [address] Care Team Providers Care Appraiser [employer] Name Role Phone Alea Hull MD Primary Care Provider Hector Brown Unavailable [phone] Allergies No Known Allergies REASON FOR VISIT Wart(s) Medications Medication SIG (Take, Route, Frequency, Duration) Notes Start Date End Date Status Albuterol Sulfate 2.5 MG/0.5ML as directed Inhalation Unkno wn Spiriva Respimat 2.5 MCG/ACT 2 puffs Inhalation Once a day Unknown Albuterol Sulfate 108 (90 Base) MCG/ACT 1 puff as needed Inhalation every 4 hrs Unknown Thorp 3 1000 MG 1 capsule Orally Onc [...] 03/03/2024 Encounters Encounter Location Date Provider Diagnosis [facility] [address] [place] [address] 03/03/2024 Hector Rodriguez Right foot pain M79.671 [...] Notes * Mario DOLANDOB:1960 (63 yo M)Acc No.[id number]:03/03/2024 Progress Note Patient:?Mario Dolan Provider:?Hector Rodriguez DPM :1960???Age:63 Y???Sex:Male John Paul e:03/03/2024 Address:[address] [place], [place] [id number] Pcp:Alea Hull MD Subjective: * Chief Complaints: [...] Surgical History:[place]card[place] [facility] [place] * Hospitalization/Major Diagno stic Procedure:?[facility] [place] [place] [facility] [place] * Family History:?Mother: tye [...] before morning meal Orally Once a dayUnknown Thorp 3 1000 MG Capsule 1 capsule Orally [...] DPM Date:? 024 Generated for Prashanthi katie/Makayla/eTransmitting on:?04/20/2025 02:01 PM EDT History and Physical Notes * HPI (History [...]
--- OUTSIDE RECORDS SUMMARY | 2025-04-20 14:02 | XMS_ITS ---
Author Organization [facility] Address [address] [place] [address] Care Team Providers Care Field Project Manager Name Role Phone Alea Hull MD Primary Care Provider Hector Brown Unavailable [phone] Lillian Matias Unavailable [phone] Encounters Encounter Location Date Provider Diagnosis [address] [address] 01/28/2024 Lillian Matias Plan Of Treatment No Information Progress Notes * Mario DOLANDOB:1960 (64 yo M)Acc No.[id number]:01/28/2024 Progress Notes Patient:?Mario DOLAN Provider:?Lillian Matias DPM :1960???Age:63 Y???Sex:Male John Paul e:01/28/2024 Address:[address] [place], [place] [id number] Pcp:Alea Hull MD Subjective: * Chief Complaints: [...] Matias DPM Date:? Generated for Carly wilson/Makayla/eTransmitting on:?04/20/2025 02:01 PM EDT
--- OUTSIDE RECORDS SUMMARY | 2025-04-20 14:02 | XMS_ITS | Data Portability ---
Author Organization [facility] UROLOGY Address [address] [facility] [address] [place] [address] Care Team Providers Care Aviation Program Manager Name Role Phone ALLY HAYNES Pain Coordinator DREW HUERTA Student Officer Assessment Encounter Date Assessment Date Assessment LastModified [...] Lab TSH, serum or plasma 2021 022 Min[place] Brook [facility], [address] [place] [address], [address], 22:12:14 T4, free, serum 2021 022 Minetta Brook [facility], [address] [place] [address], [address], 22:12:15 Referral noé maier surgery referral 2021 022 brunilda Not available 10:54:01 Procedures None recorded . Surgeries None recorded . Imaging electroc ardiogra m 2022 023 In-House Order For Karissa Provider, For Internal Use Only, 3 09:08:13 electroc ardiogra m 2021 022 [email or web address] In-House Order For [place] Provider, For Internal Use Only, 09:09:01 electroc ardiogra m 2021 022 barkin In-House Order For [place] Provider, For Internal Use Only, 12:23:43 Medication Orders None recorded . Patient TargetsNo targets recorded. Patient InstructionsNo instructions recorded. Reason for Referral Bariatric Surgery Referral f or Morbid obesity Referring Physician: Geni Mcghee, Vascular Surgery, Encounter Date: 03/05/2022 Results Created Date Observation Date Name Description Value Unit Range Abnormal Flag Note LastModifiedBy Organization Detail LastModifiedTime 03/27/2003/27/2022 TSH TSH 1.55 mIU/L 0.40-4 .50 normal Not Available [facility] [address], [address], 03/27/2022 22:12:14 03/27/20 22 03/27/2022 T4, FREE T4, free 1.6 NG/dL 0.8-1. 8 normal Not Available [facility] [address], [address], 03/27/2022 22:12:15 12/24/19 22 12/24/2021 elect doug maldonado am No observ ation record ed. barkin In-House Order For Karissa Provider For Internal Use Only, 12/24/2021 12:23:42 12/31/19 12/24/2021 CT, angio gram, chest , w/o contr ast No observ ation record ed. jennifer [facility] (Radiology) [address] , [place], [address], 12/31/2021 17:27:21 01/24/20 22 12/24/2021 elect rocar diogr am No observ ation record ed. BARCODE In-House Order For [place] Provider For Internal Use Only, [id number] 01/24/2022 19:27:37 02/14/20 22 01/20/2022 US, lower [...] ation record ed. barkin In-House Order For [place] Provider For Internal Use Only, 12/30/2022 09:07:46 12/31/19 23 elect rocar diogr am No observ ation record ed. [email or web address] In-House Order For [place] Provider For Internal Use Only, 12/31/2022 11:06:23 Result Notes None recorded. Problems Name Problem SNOMED Code Status Onset Date Resolution Date Notes Provider Name and Address Organization Details Recorded Time Atrial fibrillation and flutter 281524131 Active Not Available [facility] 2 04:02:30 Lumbar radiculopathy 360948606 Active Not Available [facility] 2 04:02:30 History of deep vein thrombosis 162990870 Active Not Available [facility] 2 04:02:30 History of pulmonary embolus 702917320 Active Not Available [facility] 2 04:02:31 Anemia 343256539 Active Not Available [facility] 2 04:02:30 Essential hypertension 13375122 Active 2018 Not Available [facility] 2 04:02:31 Acute pulmonary embolism 955671534 Active Other Not Available [facility] 2 04:02:30 Peripheral edema 872799977 Active 2019 Not Available [facility] 2 04:02:30 Superficial thrombophlebi tis 9702387 Active 2021 Not Available [facility] 2 04:02:31 Problem Notes None recorded. Procedures Surgical History Date Name Laterality Status Provider Name and Address Organization Details Recorded Time 12/13/19 22 TeleHealth Visit completed ALLY HAYNES MD [address] [place] [address], [address], [facility] 12/13/2021 07:20:33 09/04/20 21 TeleHealth Visit completed ALLY HAYNES MD [address] [place] [address], [address], [facility] 09/04/2021 07:18:26 03/25/20 14 Diagnostic colonoscopy completed Not Available [facility] 11/01/2015 03:34:03 03/24/20 14 Egd diagnostic brush wash completed Not Available [facility] 11/01/2015 03:34:03 other completed Jackie Chen [facility] 08/26/2016 10:39:29 appendectomy completed Jackie Chhay [facility] 08/26/2016 10:39:29 Imaging Results Imaging Date Name Status LastModified by Organization Details LastModified Time 12/24/2021 electrocardiogram completed Med[facility] In-Hous e Order For Karissa Provider For Internal Use Only, [id number] 12/24/2021 12:23:42 12/24/2021 CT, angiogram, chest, w/o contrast completed jennifer [facility] (Radiology) [address], [facility] [place] Wong, [address], 12/31/2021 17:27:21 12/24/2021 electrocardiogram completed [facility] In-Hous e Order For [place] Provider For Internal Use Only, [id number] 01/24/2022 19:27:37 01/20/2022 US, lower extremity completed BARCODE Infor mation not available 02/13/2022 11:54:31 02/22/2022 US, duplex, venous, lower extremity completed BARCODE Information not available 02/26/2022 11:40:31 06/17/2022 electrocardiogram completed barkin In-Hous e Order For [place] Provider For Internal Use Only, [id number] 06/17/2022 09:08:16 12/30/2022 electrocardiogram completed barkin In-Hous e Order For Karissa Provider For Internal Use Only, 12/30/2022 09:07:46 [...] 4 TABLETS BY MOUTH EVERY MORNING X2DAYS [id number], 2Z3SPKN, 3W7GBHB THEN OFF 12/24 completed Not Available Not [...] ne propionat e 50 mcg/actua tion nasal spray,moiess pension [place] 1 spray every day by nasal route. [...] e 205.5 mcg (0.15 %) nasal spray [place] 1 spray twice a day by intranas [...] Not Available Not Available Not Available Afluria [id number] (PF) 45 mcg (15 mcg x 3)/0.5 [...] Updated DateTime 2 180.34 cm 46 kg/m2 402262. 48 g 76 /min 134 mm[Hg] 74 mm[Hg] Akosua Kidd [facility] 2 08:48:02 Date Recorded Body height Body mass index (BMI) Body weight Heart rate Systolic blood pressure Diastolic blood pressure Provider Name and Address Organization Details Last Updated DateTime 3 180.34 cm 47.4 kg/m2 920572. 41 g 61 /min 136 mm[Hg] 72 mm[Hg] Akosua Kidd [facility] 3 08:48:33 Date Recorded Body height Body mass index (BMI) Body weight Heart rate Systolic blood pressure Diastolic blood pressure Provider Name and Address Organization Details Last Updated DateTime 2 180.34 cm 45.2 kg/m2 821114. 93 g 58 /min 150 mm[Hg] 76 mm[Hg] Akosua Kidd [facility] 2 11:52:32 Date Recorded Body height Body mass index (BMI) Body weight Systolic blood pressure Diastolic blood pressure Provider Name and Address Organization Details Last Updated DateTime 03/05/2022 180.34 cm 45.2 kg/m2 016015.9 3 g 130 mm[Hg] 72 mm[Hg] Burton dominguez [facility] 2 10:06:14 Date Recorded Body height Body mass index (BMI) Body weight Heart rate Respiratory rate Body temperature Oxygen saturation Oxygen saturation in Arterial blood by Pulse oximetry Systolic blood pressure Diastolic blood pressure Provider Name and Address Organization Details Last Updated DateTime 2 180.34 cm 46.2 kg/m2 439696. 07 g 76 /min 18 /min 97.4 [degF] 87 % 87 % 134 mm[Hg] 84 mm[Hg] Domonique Benton [facility] 2 16:28:31 Social History Question Answer [...] Tobacco Screening? 12/30/2022 Information not available 12/30/2022 Sex: Unknown Functional Status Question Answer Note LastModified by Organization D etails LastModified Time Do you or have you ever used any other forms of tobacco or nicotine? No [email or web address] Information not available 03/05/2022 Mental Status None recorded. Family History Relationship [...] SNOMED-CT Code Diagnosis ICD10 Code Diagnosis Note [id number] AARON KOLB MD [facility] [address] [address] 08/26/2016 09:43:05 08/26/2016 10:41:49 Lumbar radiculopathy 841144735 M54.16 [id number] AARON KOLB MD [facility] [address] [address] 10/07/2016 10:00:44 10/07/2016 10:35:13 Lumbar radiculopathy 589009410 M54.16 [id number] [facility]OL[facility] [address] [address] 10/28/2016 11:17:17 10/28/2016 11:52:59 Lumbar radiculopathy 857975695 M54.16 [id number] AAR[facility] KOLB [facility] [address] [address] 01/29/2017 09:08:04 01/29/2017 10:06:57 Lumbar radiculopathy 782839616 M54.16 [id number] JUSTICE ROBERSON MD,MPH [facility] Y/ONCOLOG Y AT [address] [address] 08/28/2017 13:17:35 08/28/2017 14:34:11 History of deep vein thrombosis 343782179 Z86.718 History of pulmonary embolus 346968141 Z86.711 Anemia 681889926 D64.9 [id number] GWEN Osborn MD [facility]/ONCOLOG Y AT [address] [address] 02/25/2018 15:08:18 02/25/2018 15:59:29 History of pulmonary embolus 164938666 Z86.711 I discussed with Mr. Dolan today [...] most c/w morbid obesity and COPD Leukocytosis 813317914 D 72.829 [id number] GWEN Osborn MD [facility]/ONCOLOG Y AT [address] [address] 08/28/2018 14:37:43 09/01/2018 12:44:19 Leukocytosis 861088382 D72.829 Stable. Mild leukocytos is with neutrophil ia - stable from 05/2017 -- most c/w morbid obesity and COPD Pulmonary embolism 16873 003 I26.99 Doing very well on eliquis; [...] comp (to check lfts/cr) and cbc prior. [id number] GWEN Osborn MD [facility] Y/ONCOLOG Y AT [address] [address] 02/26/2019 13:36:08 02/26/2019 14:08:06 Pulmonary embolism 35015977 I26.99 Mr. Dolan is doing very well [...] also has chronic carbon dioxide retention Leukocytosis 831988343 D 72.829 Stable. Mild leukocytos is with neutrophil ia - stable from 05/2017 -- most c/w morbid obesity and COPD currently on chronic steroids Recurrent pneumonia 6990 51467 J18.9 This is the second time that he had been hospitaliz ed in the past 6 months for pneumonia. He also had multiple infections requiring steroid treatment as well as antibiotic s. I am going to check quantitati ve immunoglob ulins on him and see whether he will benefit from some IVIG infusion [id number] GWEN Osborn MD [facility] HEMATOLOG Y/ONCOLOG Y AT [address] [address] 09/03/2019 14:55:38 09/03/2019 15:32:14 Pulmonary embolism 70465878 I26.99 Mr. Dolan is doing very well on eliquis. He denies any bleed/new blood clots or bruising. He was off the eliquis during his colonoscop y and denies any clots during the time. PLAN: 1. Continue the Apixaban 5 mg po bid 2. Follow up in 12 months or earlier if needed Leukocytosis 124466280 D 72.829 Stable. Resolved Mild leukocytos is with neutrophil ia - stable from 05/2017 -- most c/w morbid obesity and COPD; off and on steroids Recurrent pneumonia 6990 79199 J18.9 None since the last visit and the immunoglob ulins are within normal limits except for a slightly low IgM in 01/2019. No plans for any interventi ons [id number] Drew Huerta [facility] [facility] [address] [address] 12/02/2019 09:55:34 12/02/2019 10:54:09 History of pulmonary embolus 388017376 Z86.711 04/29/17 - hospitaliz ed with pulmonary embolism. Continue anticoagul ation with Eliquis. Essential hypertension 30508408 I10 Current status is stable 136/84. BP today Continue current medication s. advised to monitor BP at home and keep a log. Atrial flutter 1714144 I 48.92 stable - no recurrence 12/04/15 [...] Eliquis because of previous pulmonary embolus (04/29/17). [id number] Drew Huerta [facility] [address] [place] [address] 01/20/2020 08:58:18 01/20/2020 10:06:43 Atrial flutter 7286879 I48.92 Recent recurrence during hospitaliz ation on 12/22/2019 at [facility] bsequently transition to atrial fibrillati on and then to sinus rhythmNow on amiodarone 200 mg daily 12/04/15 - ABLATION -- ATRIAL FLUTTER --> complicate d by right groin hematoma, warfarin held for one week - ABLATION of Atrial Flutter (right-chanelle ed, clockwise) , complicate d by groin hematoma which is improving. 03/06/15 - recurrent atrial pcynsfl19/ 18/15 - CARDIOVERS ION -- Atrial Flutter [...] Continue current medication History of pulmonary embolus 120401204 Z86.711 04/29/17 - hospitaliz ed with pulmonary embolism. Continue anticoagul ation with Eliquis. Essential hypertension 71842832 I10 Current status is stableBloo d pressure today is 130/73 but has been running 100/60 at home Stop amlodipine advised to monitor BP at home and keep a log. Peripheral edema 7373904 00 R60.9 cont LASIX 40 mg twice daily [id number] ALLY HAYNES MD [facility] [address] [place] [address] [place], [place] [address] 01/20/2020 08:13:42 01/20/2020 08:42:37 Hyperthyroidism 28582327 E05.90 59 y/o male with hyperthyro idism here for further evaluation .He is clinically euthyroid to slightly hyperthyro id.The cause of his hyperthyro idism is not clear.Paul mmend repeat labs today.If his TSH is still low, to obtain a thyroid scan and uptake.He will be informed of his results once available and given further recommenda tions.F/U in 3 months. [id number] ALLY HAYNES MD [facility] [address] [place] [address] [place], [place] [address] 05/04/2020 08:23:35 05/04/2020 08:41:17 Hyperthyroidism 17739548 E05.90 59 y/o male with hyperthyro idism here for the follow up.He is clinically euthyroidR ecommend repeat labs today.He will be informed of his results once they are available. Follow up as needed. [id number] Drew Huerta [facility] [place] [address] [place] [address] 07/20/2020 08:33:35 07/20/2020 09:13:20 Atrial flutter 0267287 I48.92 Recent recurrence during hospitaliz ation on 12/22/2019 at [facility] bsequently transition to atrial fibrillati on and then to sinus rhythmNow on amiodarone 200 mg daily12/04 - ABLATION -- ATRIAL FLUTTER --> complicate d by right groin hematoma, warfarin held for one week - ABLATION of Atrial Flutter (right-chanelle ed, clockwise) , complicate d by groin hematoma which is improving. 03/06/15 - recurrent atrial srbebqz14/ 18/15 - CARDIOVERS ION -- Atrial Flutter [...] Continue current medication History of pulmonary embolus 868083197 Z86.711 04/29/17 - hospitaliz ed with pulmonary embolism.C ontinue anticoagul ation with Eliquis. Peripheral edema 9004223 00 R60.9 cont LASIX 40 mg twice daily Essential hypertension 10411523 I10 Current status is stableBloo d pressure today is 132/80BP at home averages 130/80 previously stopped amlodipine advised to monitor BP at home and keep a log. [id number] Drew Huerta [facility] [address],[facility] [place] [address] 01/23/2021 15:13:08 01/24/2021 13:51:19 Atrial flutter 9062512 I48.92 stableno recurrence Last recurrence during hospitaliz ation on 12/22/2019 at [facility] bsequently transition to atrial fibrillati on [...] Continue current medication History of pulmonary embolus 034894209 Z86.711 04/29/17 - hospitaliz ed with pulmonary embolism.C ontinue anticoagul ation with Eliquis. Peripheral edema 7058936 00 R60.9 cont LASIX 40 mg twice daily Essential hypertension 23313475 I10 Blood pressure today is 164/80BP at home averages 130/80 previously stopped amlodipine advised to monitor BP at home and keep a log. [id number] JANNA GODOY MD [facility] [address] [facility], [address] [place] [address] 01/31/2021 09:01:06 01/31/2021 10:25:57 Rotator cuff arthropathy of left shoulder 4948941964 7124845 M25.812 [id number] ALLY HAYNES MD [facility] [address] [address] 03/08/2021 07:58:12 03/08/2021 08:15:50 Hyperthyroidism 10722808 E05.90 60 y/o male with hyperthyro idism here for the follow up.He is clinically euthyroidR ecommend repeat labs today.He will be informed of his results once they are available. Follow up in 6 months. [id number] Drew Huerta [facility] [address] [facility] [address] [place] [address] 12/24/2021 11:40:42 12/24/2021 12:18:34 Atrial flutter 3677932 I48.92 stableno recurrence Last recurrence during hospitaliz ation on 12/22/2019 at [facility] bsequently transition to atrial fibrillati on [...] Continue current medication History of pulmonary embolus 734088835 Z86.711 04/29/17 - hospitaliz ed with pulmonary embolism.C ontinue anticoagul ation with Eliquis. Peripheral edema 9076214 00 R60.9 cont LASIX 40 mg twice daily Essential hypertension 60883582 I10 Blood pressure today is 150/76BP at home averages 130/80 previously stopped amlodipine advised to monitor BP at home and keep a log. [id number] ALLY HAYNES MD [facility] [address] [facility] [address] [place] [address] 09/04/2021 06:56:25 09/04/2021 07:29:04 Hyperthyroidism 23384775 E05.90 60 y/o male with hyperthyro idism seen for the follow up utilizing telehealth .He seems clinically euthyroidR ecommend repeat labs. He will cloth picker the lab slip from here today.He will be informed of his results once they are available. He does not require any active treatment at this time.Follo w up in 1 year. Atrial fibrillation 4943 6004 I48.91 Continue eliquis, diltiazem CD 240 mg QD and metoprolol ER 100 mg QD. Chronic ob structive pulmonary disease 24329180 J44.9 Continue symbicort and proair as needed [id number] ALLY HAYNES MD [facility] [address] [facility] [address] [place] [address] 12/13/2021 07:10:40 12/13/2021 07:29:48 Hyperthyroidism 51947023 E05.90 61 y/o male with hyperthyro idism [...] mg QD. Chronic ob structive pulmonary disease 50489798 J44.9 Continue symbicort and proair as needed [id number] GENI MCGHEE MD [facility] @ [facility] [address] [facility] [address] [place] [address] 03/05/2022 09:38:31 03/05/2022 10:38:43 History of deep vein thrombosis 136163346 Z86.718 Peripheral venous insufficiency 50973467 I87.2 Lymphedema of limbs due to immobility, chronic dependency and/or venous insufficiency 157901235 I89.0 Morbid obesity 900904313 E66.01 [id number] ALLY HAYNES MD [facility] [address] [place] [address] [address] [place] [address] 03/19/2022 16:23:53 03/19/2022 16:35:45 Hyperthyroidism 91571422 E05.90 61 y/o male with hyperthyro idism here for the follow-up. He seems clinically euthyroidR epeat TSH and free T4. Continue methimazol e 5 mg daily for now.Follow up 3 months. Atrial fibrillation 4943 6004 I48.91 Continue eliquis, diltiazem CD 240 mg QD and metoprolol ER 100 mg QD. Chronic ob structive pulmonary disease 40845846 J44.9 Continue symbicort and proair as needed [id number] Drew Huerta [facility] [address] [facility],[address] [place] [address] 06/17/2022 08:33:28 06/17/2022 09:09:01 Atrial flutter 6383061 I48.92 stableno recurrence Last recurrence during hospitaliz ation on 12/22/2019 at [facility] bsequently transition to atrial fibrillati on [...] Continue current medication History of pulmonary embolus 918378691 Z86.711 04/29/17 - hospitaliz ed with pulmonary embolism.C ontinue anticoagul ation with Eliquis. Peripheral edema 1836772 00 R60.9 cont LASIX 40 mg twice daily Essential hypertension 10289955 I10 Blood pressure today is 134/74BP at home averages 130/80 previously stopped amlodipine advised to monitor BP at home and keep a log. [id number] Drew Huerta [facility] [address] [place] [address] 12/30/2022 08:30:02 12/30/2022 09:08:13 Atrial flutter 3053052 I48.92 stableno recurrence Last recurrence during hospitaliz ation on 12/22/2019 at [facility] bsequently transition to atrial fibrillati on [...] Continue current medication History of pulmonary embolus 002483484 Z86.711 04/29/17 - hospitaliz ed with pulmonary embolism.C ontinue anticoagul ation with Eliquis. Peripheral edema 8595106 00 R60.9 cont LASIX 40 mg twice daily Essential hypertension 46682211 I10 Blood pressure today is 136/72BP at home averages 130/80 previously stopped amlodipine advised to monitor BP at home and keep a log. Health Concerns Section Related Observation LastModified by Organization Detai ls LastModified Time None Recorded Concern Status LastModified by Organization Details LastModified Time None Recorded Advance Directives Directive None Recorded Payers Insurance Date Sequence Insurance Name Policy Number Policy Joyner Covered Member ID Joyner Member ID Guarantor Name 12/30/2022 1 ZHANE (PPO) [id number] Oly Dolan Jr [id number] Oly Dolan 12/30/2022 1 [facility] Oly Dolan [id number] Oly Dolan 12/30/2022 1 [place] [facility] [place] [id number] Oly Dolan [id number] Oly Dolan 12/30/2022 1 [facility] Oly Dolan [id number] Oly Dolan 12/30/2022 1 [place] [id number] Oly Dolan [id number] Oly Dolan 12/30/2022 1 [place] [id number] Lissy Garcia [id number] Oly Dolan 12/30/2022 1 [place] [id number] Oly Dolan [id number] Oly Racquel Dolan 04/08/2022 1 [place] [id number] Lissy Garcia [id number] Oly Dolan 12/30/2022 1 [place] [id number] Oly Racquel Magdaleno [id number] Oly Racquel Magdaleno Notes Date Note Type Note Provider Name and Address Organization Details Recorded Time 12/24/2021 text/html The patient is a 61 year old male whose cardiac / medical problems are listed below. Patient is seen today for continued evaluation and management of atrial flutter and hypertension. Admitted to [facility] on 12/14/2019 with pneumonia and COPD exacerbation, oxygen desaturation at 69%. Told to use oxygen at home 23/06. Now using oxygen at night with CPAP, as needed during the day, and while on treadmill. Seen by his blindstitch lapel padder Dr. Gomes on 12/21/2019 Admitted to [facility] on 12/22/2019 with pneumonia, COPD exacerbation, elevated heart rate initially with atrial flutter, then atrial fibrillation, and then conversion to sinus rhythm. Subsequently sent to [place] for 2 weeks and home for 1 [...] syncope, palpitations, symptoms of claudication. Drew Huerta [address] [place] [address], [address], [facility] 12/24/2021 12:23:51 03/05/2022 text/html 61-year-old zaynab adamsan with a past medical history of a [...] further treatment recommendations. GENI MCGHEE MD [address] [place], [address], [facility] 03/05/2022 10:57:02 03/19/2022 text/html Mr. Dolan is [...] offers no other complaints. ALLY HAYNES MD [address] [place], [address], [facility] 03/19/2022 16:37:26 06/17/2022 text/html The patient is a 61 year old male whose cardiac / medical problems are listed below. Patient is seen today for continued evaluation and management of atrial flutter and hypertension. Admitted to [facility] on 12/14/2019 with pneumonia and COPD exacerbation, oxygen desaturation at 69%. Told to use oxygen at home 23/06. Now using oxygen at night with CPAP, as needed during the day, and while on treadmill. Seen by his blindstitch lapel padder Dr. Gomes on 12/21/2019 Admitted to [facility] on 12/22/2019 with pneumonia, COPD exacerbation, elevated heart rate initially with atrial flutter, then atrial fibrillation, and then conversion to sinus rhythm. Subsequently sent to [place] for 2 weeks and home for 1 [...] lightheadedness, syncope, palpitations, symptoms [place]aud[place], [address], [facility] 06/17/2022 09:40:08 12/30/2022 text/html The patient is a 62 year old male whose cardiac / medical problems are listed below. Patient is seen today for continued evaluation and management of atrial flutter and hypertension. Admitted to [facility] on 12/14/2019 with pneumonia and COPD exacerbation, oxygen desaturation at 69%. Told to use oxygen at home 23/06. Now using oxygen at night with CPAP, as needed during the day, and while on treadmill. Seen by his blindstitch lapel padder Dr. Gomes on 12/21/2019 Admitted to [facility] on 12/22/2019 with pneumonia, COPD exacerbation, elevated heart rate initially with atrial flutter, then atrial fibrillation, and then conversion to sinus rhythm. Subsequently sent to [place] for 2 weeks and home for 1 [...] lightheadedness, syncope, palpitations, symptoms of claudication[place], [address], [facility] 12/30/2022 09:08:09
--- OUTSIDE RECORDS SUMMARY | 2025-04-20 14:02 | XMS_ITS | Data Portability ---
Author Organization [place] - [facility] Former[facility], Allergy Address [address] [place] [id number] Care Team Providers Care Tool Drawing Checker Name Role Phone SOFIA NICOLLE Referring Provider Assessment Encounter Date Assessment Date Assessment LastModified by Organization Details LastModified Time 08/27/2024 08/27/2024 Patient with 1.5 mm exophytic growth on the columella. This has been a recurrent growth for the past 20 years. Previously consistent with viral wart. The lesion was removed today in routine fashion, which patient tolerated well. Reviewed with patient differential to include verruca vulgaris versus papilloma. Sample will be submitted for pathology and patient will be called with results. Wound care was reviewed and patient expressed understanding. He will follow up as needed. Patient was also examined by Lydia Ricketts PA-C, who performed the procedure, and Liliana Machuca PA-C, who assisted ronit Not available 08/27/2024 16:54:18 Plan of Treatment Reminders Order Date Submit Date Provider Last Modified By Organization Details Last Modified Time Details Appointments Establish ed 15 2024 01:15P M LILIANA MACHUCA PA-C Not available Not available Not available Lab surgical pathology study 2023 024 [email or web address] [facility] (Centralized Electronic Ordering - All Locations), Patient Can Go To The Location Of Their Choice, [id number] 09/03/2024 08:20:27 Referral None recorded. Procedures None recorded. Surgeries None recorded. Imaging None recorded. Medication Orders None recorded. Patient TargetsNo targets recorded. Patient InstructionsNo instructions recorded. Reason for Referral None Reported. Results Created Date Observation Date Name Description Value Unit Range Abnormal Flag Note LastModifiedBy Organization Detail LastModifiedTime Result Notes None recorded. 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 Procedures Surgical History Date Name Laterality Status Provider Name and Address Organization Details Recorded Time Excision skin completed LYDIAJill RICKETTS [employer] [address] [facility],[place] [address], [place], [address], [facility] [place] 08/27/2024 16:43:51 Imaging Results None recorded. Procedure Notes None recorded. Medical Equipment None Reported. Medications Name Sig Start Date Stop Date Status Note LastModified by Organization Details LastModified Time amoxicillin 500 mg capsule TAKE 1 CAPSULE BY MOUTH EVERY 8 HOURS UNTIL FINISHED active Not Available Not Available No t Available furosemide 40 mg tablet TAKE 1 TABLET TWICE A DAY FOR EDEMA active Not Available Not Available No t Available doxycycline hyclate 100 mg capsule TAKE 1 CAPSULE BY MOUTH 2 TIMES A DAY FOR 10 DAYS 08/27 completed Not Available Not Available Not Available albuterol sulfate 2.5 mg/3 mL (0.083 %) solution for nebulizatio n active Not Available Not Available Not Available prednisone 20 mg tablet TAKE 2 TABLETS BY MOUTH DAILY active Not Available Not Available No t Available metoprolol succinate ER 100 mg tablet,exte nded release 24 hr TAKE 1 TABLET AT BEDTIME active Not Available Not Available No t Available acetazolami de 250 mg tablet TAKE 1 TABLET BY MOUTH EVERY DAY IN THE MORNING active Not Available Not Available No t Available clindamycin HCl 150 mg capsule TAKE 1 CAPSULE BY MOUTH EVERY 8 HOURS UNTIL GONE active Not Available Not Available No t Available diltiazem ER 240 mg capsule,24 hr,extended release TAKE 1 CAPSULE AT BEDTIME active Not Available Not Available No t Available lidocaine-p rilocaine 2.5 %-2.5 % topical cream APPLY TO AFFECTED AREAS ON FACE 30 MINUTES PRIOR TO APPOINTME NT. COSMETIC active Not Available Not Available No t Available amoxicillin 875 mg tablet TAKE 1 TABLET BY MOUTH TWICE A DAY UNTIL FINISHED active Not Available Not Available No t Available ferrous sulfate 325 mg (65 mg iron) tablet TAKE 1 TABLET BY MOUTH DAILY active Not Available Not Available No t Available methimazole 5 mg tablet TAKE 1/2 TABLET (2.5 MG TOTAL) BY MOUTH AT BEDTIME. active Not Available Not Available No t Available Vitamin B-1 500 mg tablet 500 mg every day by oral route. active Not Available Not Available No t Available Diltiazem HCL ER 120 mg capsule,ext ended release 240 mg every day by oral route. active Not Available Not Available No t Available levalbutero l 1.25 mg/3 mL solution for nebulizatio n INHALE 1 VIAL (3 ML) VIA NEBULIZER 2 TIMES A DAY FOR 30 DAYS active Not Available Not Available No t Available acetaminoph en 500 mg capsule active Not Available Not Available Not Available Natural E 400 400 unit capsule 180 mg every day by oral route. active Not Available Not Available No t Available [place] 3 Fish Oil capsule 360 mg every day by oral route. active Not Available Not Available No t Available D-3-5 active Not Available Not Availa ble Not Available Acid Oracle Programmer active Not Available Not Available Not Available ProAir HFA 90 mcg/actuati on aerosol inhaler 2 inhalatio ns as needed by inhalatio n route. active Not Available Not Available No t Available furosemide (bulk) active Not Available Not Available Not Available GaviLyte-G 236 gram-22.74 gram-6.74 gram-5.86 gram oral solution PLEASE SEE ATTACHED FOR DETAILED DIRECTION S active Not Available Not Available No t Available Multaq 400 mg tablet TAKE 1 TABLET BY MOUTH TWICE A DAY active Not Available Not Available No t Available Dulera 200 mcg-5 mcg/actuati on HFA aerosol inhaler INHALE 2 PUFFS BY MOUTH EVERY 12 HOURS active Not Available Not Available No t Available roflumilast 500 mcg tablet TAKE 1 TABLET AT BEDTIME active Not Available Not Available No t Available roflumilast active Not Available Not A vailable Not Available Combivent Respimat 20 mcg-100 mcg/actuati on solution for inhalation INHALE 1 PUFF 4 TIMES A DAY FOR 30 DAYS SPACE EVENLY DURING WAKING HOURS active Not Available Not Available No t Available Eliquis 5 mg tablet TAKE 1 TABLET TWICE A DAY active Not Available Not Available No t Available Eliquis 2.5 mg tablet active Not Available Not Available No t Available Spiriva Respimat 2.5 mcg/actuati on solution for inhalation active Not Available Not Available N ot Available Spiriva Respimat 1.25 mcg/actuati on solution for inhalation 2 puffs twice a day by inhalatio n route. active Not Available Not Available No t Available Trelegy Ellipta 200 mcg-62.5 mcg-25 mcg powder for inhalation USE 1 INHALATIO N ORALLY DAILY active Not Available Not Available No t Available Lagevrio 200 mg capsule (EUA) TAKE 4 CAPSULES BY MOUTH EVERY 12 HOURS FOR 5 DAYS 08/27 completed Not Available Not Available Not Available Vitals Date Recorded Body height Body mass index (BMI) Body weight Provider Name and Address Organization Details Last Updated DateTime 08/27/2024 180.34 cm 44.6 kg/m2 258391.56 g Karson Olvera [facility] 08/27/2024 15:39:12 Social History None recorded. Functional Status None recorded. Mental Status None recorded. Family History Nothing Reported. Medical History No medical history recorded. Past Encounters Encounter ID Performer Location Encounter Start Date Encounter Closed Date Diagnosis/Indication Diagnosis SNOMED-CT Code Diagnosis ICD10 Code Diagnosis Note [id number] YA HOLDEN MD [facility] [address] [address] 08/27/2024 15:15:20 08/27/2024 16:33:28 Lesion of skin of nose 6910208393 7562733 J34.89 Verruca vulgaris 0703316 3 B07.8 Health Concerns Section Related Observation LastModified by Organization Detai ls LastModified Time None Recorded Concern Status LastModified by Organization Details LastModified Time None Recorded Advance Directives Directive None Recorded Payers Insurance Date Sequence Insurance Name Policy Number Policy Joyner Covered Member ID Joyner Member ID Guarantor Name 04/19/2025 1 [employer] [id number] Lissy Garcia [id number] Mario Clement Magdaleno Notes Date Note Type Note Provider Name and Address Organization Details Recorded Time 08/27/2024 text/html 63 year old male on Eliquis therapy presents for evaluation of a 6+ month history of small lesion at the end of the nose. States it is irritated but does not hurt and does not bleed. It seems to be getting firmer. A lesion first appeared 20+ years ago, inside the alar rim. Has had it removed several times, at least twice, but it comes back. Last removed about 5 years ago. Pathology previously consistent with a wart. States he uses CPAP and the mask is a bit irritating. He did not take his Eliquis today. There are no bleeding disorders in self or family. YA LEE MD [address] [place] [address], [phone], [facility] - [facility] 08/27/2024 16:55:32
== END 2025-04-20 14:09 | disposition home or self-care (01) ==
LOC: HO.HCS 13:27
PROVIDERS: PCP Internal Medicine; Visit Provider Internal Medicine
DX: I48.0 Paroxysmal atrial fibrillation (principal); I48.92 Unspecified atrial flutter; I10 Essential (primary) hypertension; E66.01 Morbid (severe) obesity due to excess calories; Z68.42 Body mass index [BMI] 45.0-49.9, adult
CPT/HCPCS: 93010; 99214

== ENCOUNTER → 2025-04-20 13:26 | Outpatient (BNVA) | payer BC, SELFPAY | PROVIDERS: PCP Internal Medicine; Visit Provider Internal Medicine | DX: I48.0 Paroxysmal atrial fibrillation (principal) | CPT/HCPCS: 93005 ==

== ENCOUNTER 2025-04-28 06:51 | Day surgery (SDC) | payer BC, SELFPAY ==
[2025-04-26 14:40] VITALS: BMI 47.2
--- NOTE | 2025-04-27 10:42 | HO.ANESPROP2 ---
HPI - Anesthesia Eval Consult details Narrative: 64yo M for Upper Endoscopy and Colonoscopy Follows [facility] Cardiology for afib/flutter (eliquis) with hx multiple cardioversions/ablations, CHF. Stable at 03/2025 office visit Follows [facility] Pulmonary for chronic respiratory failure, COPD requiring supplemental O2 (POC 3- 5L/pulse to keep pox>87%), DEVIN (Astral AVAPS at night, adjusted min PS 10;maxPS22, aEPAP 8-10, RR17). Optimized to proceed with increased risk r/t pulmonary conditions. BMI 47 [facility] Active Problems Active Problems: All Active Problems Primary hypertension (Acute) Acute and chronic respiratory failure (Acute) Acute on chronic diastolic (congestive) heart failure (Acute) CHF (congestive heart failure) (Acute) COPD (chronic obstructive pulmonary disease) (Acute) Iron deficiency (Acute) Anemia (Acute) Morbid obesity (Acute) Nose polyp (Acute) Chronic diastolic heart failure (Acute) Hypoventilation associated with obesity syndrome (Acute) Hematoma of left lower extremity (Acute) COPD (chronic obstructive pulmonary disease) (Acute) Witt of toe (Acute) Dysplastic nevi (Acute) Hyperthyroidism (Acute) PAF (paroxysmal atrial fibrillation) (Acute) Lung mass (Acute) Upper respiratory tract infection (Acute) Hx of colonoscopy (Acute) Annual physical exam (Acute) Hx: recurrent pneumonia (Acute) A-fib (Acute) Sleep apnea (Acute) Past Medical History Medical History (Updated 04/20/25 @ 14:27 by Josesito Thorne MD) Acute on chronic diastolic (congestive) heart failure Hypoventilation associated with obesity syndrome COPD exacerbation Hx of atrial flutter Obesity DEVIN (obstructive sleep apnea) COPD (chronic obstructive pulmonary disease) Chronic diastolic heart failure Acute exacerbation of chronic obstructive airways disease Hyperthyroidism Venous insufficiency of both lower extremities Chronic respiratory failure Hx pulmonary embolism PAF (paroxysmal atrial fibrillation) Lung mass Family History Family History Father Bone cancer Mother COPD (chronic obstructive pulmonary disease) Surgical History Surgical History History of esophagogastroduodenoscopy (EGD) H/O cardiac radiofrequency ablation Social History Social History Household Members: Spouse Household Members Other:: Housing: House Do you presently have visiting nurse or other home services: No Unable to assess alcohol history related to: Unknown Alcohol intake: current Alcohol intake frequency: holidays/special occasions only Patient Tobacco Use Status: Former Tobacco user Tobacco use type: Cigarette Cigarette Packs Per Day: 1.5 Cigarettes Per Day: 30.0 Years Smoked: 25 e-Cigarette/Vaping Use: Never Used Second Hand Smoke Exposure: No Advance Directives Date on File: 07/14/23 service: No Current occupational status: employed Cognitive needs: No Hearing needs: No Vision needs: Yes Meds Allergies Allergy/AdvReac Type Severity Reaction Status Date / Time No Known Allergies Allergy Verified 02/03/25 10:33 Home Medications ?Medication ?Instructions ?Recorded ?Confirmed ?Last Taken ?Type cholecalciferol (vitamin D3) 25 25 mcg PO BEDTIME 07/01/22 04/26/25 10/17/24 History mcg (1,000 unit) tablet multivitamin 1 tab PO BEDTIME 07/01/22 04/26/25 10/17/24 History acetaminophen 500 mg tablet 1,000 mg PO Q6H PRN Pain 07/08/23 04/26/25 07/08/23 History omeprazole magnesium 20 mg 20 mg PO DAILY@0630 07/08/23 04/26/25 10/18/24 History capsule,delayed release thiamine HCl (vitamin B1) 500 mg 500 mg PO BEDTIME 07/08/23 04/26/25 10/17/24 History tablet vitamin E 268 mg (400 unit) capsule 268 mg PO BEDTIME 07/08/23 04/26/25 10/17/24 History CPAP (CPAP Machine/Device) 07/21/23 04/20/25 Unknown History Oxygen Home Use 07/21/23 04/20/25 Unknown History nebulizers 07/21/23 04/20/25 Unknown History ferrous sulfate 325 mg (65 mg 325 mg PO MOTUWETHFR@0900 10/18/24 04/26/25 10/18/24 History iron) tablet Exam Height,Weight and Vital Signs: Height 5 ft 11 in Weight 153.4 kg Pertinent Lab Results Pertinent Lab Results: Laboratory Tests 01/03/25 12:55 WBC 10.0 Hgb 13.4 L Hct 43.9 Plt Count 215 Sodium 141 Potassium 4.3 Chloride 97 Carbon Dioxide 35 H BUN 18 H Creatinine 0.75 Narrative Narrative: EKG 03/2025 EKG Details: EKG with underlying sinus rhythm at 97/Min; cannot exclude old inferior or anterior infarct but more likely from body habitus; normal DC and corrected QT. ECHO 10/2024 Conclusions: - 1. Technically limited study due to body habitus 2. Low normal LV ejection fraction 50-55% with impaired relaxation filling pattern 3. Cardiac valvular Doppler is within normal limits 4. Normal RV systolic pressure with normal right atrial pressures Assessment and Plan Assessment Anesthesia Assessment: Chart Reviewed
[2025-04-28 07:19] VITALS: BP 146/76; PULSE 84; RESP 20; TEMP 36.8; O2SAT 90
[2025-04-28] MEDS: Lactated Ringers 1,000 ML 50 ML IVCONT (07:25)
[2025-04-28] MEDS: Albuterol Sulfate (0.083%) 2.5 MG/3 ML VIAL.NEB INHALE (07:29)
--- NOTE | 2025-04-28 07:42 | HO.ANESPROP2 ---
[facility] Active Problems Active Problems: ((All Active Problems Primary hypertension (Acute) Acute and chronic respiratory failure (Acute) Acute on chronic diastolic (congestive) heart failure (Acute) CHF (congestive heart failure) (Acute) COPD (chronic obstructive pulmonary disease) (Acute) Iron deficiency (Acute) Anemia (Acute) Morbid obesity (Acute) Nose polyp (Acute) Chronic diastolic heart failure (Acute) Hypoventilation associated with obesity syndrome (Acute) Hematoma of left lower extremity (Acute) COPD (chronic obstructive pulmonary disease) (Acute) Helix of toe (Acute) Dysplastic nevi (Acute) Hyperthyroidism (Acute) PAF (paroxysmal atrial fibrillation) (Acute) Lung mass (Acute) Upper respiratory tract infection (Acute) Hx of colonoscopy (Acute) Annual physical exam (Acute) Hx: recurrent pneumonia (Acute) A-fib (Acute) Sleep apnea (Acute) Past Medical History Medical History (Updated 04/20/25 @ 14:27 by Josesito Thorne MD) Acute on chronic diastolic (congestive) heart failure Hypoventilation associated with obesity syndrome COPD exacerbation Hx of atrial flutter Obesity DEVIN (obstructive sleep apnea) COPD (chronic obstructive pulmonary disease) Chronic diastolic heart failure Acute exacerbation of chronic obstructive airways disease Hyperthyroidism Venous insufficiency of both lower extremities Chronic respiratory failure Hx pulmonary embolism PAF (paroxysmal atrial fibrillation) Lung mass Functional capacity: independent ambulation Family History Family History Father Bone cancer Mother COPD (chronic obstructive pulmonary disease) Family history of problems with anesthesia: No Surgical History Surgical History History of esophagogastroduodenoscopy (EGD) H/O cardiac radiofrequency ablation History of Problems with Anesthesia: No Social History Social History Household Members: Spouse Household Members Other:: Housing: House Do you presently have visiting nurse or other home services: No Unable to assess alcohol history related to: Unknown Alcohol intake: current Alcohol intake frequency: holidays/special occasions only Patient Tobacco Use Status: Former Tobacco user Tobacco use type: Cigarette Cigarette Packs Per Day: 1.5 Cigarettes Per Day: 30.0 Years Smoked: 25 e-Cigarette/Vaping Use: Never Used Second Hand Smoke Exposure: No Use of substances other than those prescribed or required for medical reasons: No Advance Directives: No Advance Directives Information Provided: Yes Advance Directives Date on File: 07/14/23 service: No Current occupational status: employed Cognitive needs: No Hearing needs: No Vision needs: Yes Meds Allergies Allergy/AdvReac Type Severity Reaction Status Date / Time No Known Allergies Allergy Verified 02/03/25 10:33 Active Medications: Current Medications Albuterol Sulfate (Albuterol Sulfate (0.083%) 2.5 Mg/3 Ml Vial.Neb) 2.5 mg INHALE ONCE PRN PRN Reason: Shortness of Breath/Wheezing Last Admin: 04/28/25 07:29 Dose: 2.5 mg Lactated Ringer's (Lr) 1,000 mls @ 50 mls/hr IVCONT .Q20H JIMMY Last Admin: 04/28/25 07:25 Dose: 50 mls/hr Home Medications ?Medication ?Instructions ?Recorded ?Confirmed ?Last Taken ?Type cholecalciferol (vitamin D3) 25 25 mcg PO BEDTIME 07/01/22 04/26/25 10/17/24 History mcg (1,000 unit) tablet multivitamin 1 tab PO BEDTIME 07/01/22 04/26/25 10/17/24 History acetaminophen 500 mg tablet 1,000 mg PO Q6H PRN Pain 07/08/23 04/26/25 07/08/23 History omeprazole magnesium 20 mg 20 mg PO DAILY@0630 07/08/23 04/26/25 10/18/24 History capsule,delayed release thiamine HCl (vitamin B1) 500 mg 500 mg PO BEDTIME 07/08/23 04/26/25 10/17/24 History tablet vitamin E 268 mg (400 unit) capsule 268 mg PO BEDTIME 07/08/23 04/26/25 10/17/24 History CPAP (CPAP Machine/Device) 07/21/23 04/20/25 Unknown History Oxygen Home Use 07/21/23 04/20/25 Unknown History nebulizers 07/21/23 04/20/25 Unknown History ferrous sulfate 325 mg (65 mg 325 mg PO MOTUWETHFR@0900 10/18/24 04/26/25 10/18/24 History iron) tablet Exam Height,Weight and Vital Signs: Height 5 ft 11 in Weight 153.4 kg Last Vital Signs Temp 98.2 F 04/28/25 07:19 Pulse 84 04/28/25 07:19 Resp 20 04/28/25 07:19 BP 146/76 H 04/28/25 07:19 Pulse Ox 90 L 04/28/25 07:19 O2 Del Method Nasal Cannula 04/28/25 07:19 O2 Flow Rate 4 04/28/25 07:19 Airway Mallampati Class: IV TM Dist: >3cm Neck ROM: Full Heart: RRR Lungs: CTA Assessment and Plan Assessment Anesthesia Assessment: Anesthesia Plan Discussed and Chart Reviewed Final Anesthetic Review Family History of Problems with Anesthesia: No History of Problems with Anesthesia: No NPO: Yes ASA Class: III Final Preanesthetic Review: Meds/Allgs Chart Reviewed, Consent Obtained/Reviewed and Anes Risks/Benef Reviewed Patient Risk: Intermediate Procedure Risk: Intermediate Anesthetic Plan Anesthetic Plan: MAC: Disposition: Standard PACU
--- NOTE | 2025-04-28 07:52 | MHC.SHP ---
Pre-Procedural Eval Section A - 24 Hr Update-Section A only Date of Service: 04/28/25 Section B - Complete if H&P > 30 days Chief Complaint: Personal history of colon polyps,anemia Details of Present Illness: Hypoventilation associated with obesity syndrome COPD exacerbation Hx of atrial flutter Obesity DEVIN (obstructive sleep apnea) COPD (chronic obstructive pulmonary disease) Chronic diastolic heart failure Acute on chronic diastolic (congestive) heart failure Acute exacerbation of chronic obstructive airways disease Hyperthyroidism Venous insufficiency of both lower extremities Chronic respiratory failure Hx pulmonary embolism PAF (paroxysmal atrial fibrillation) Lung mass Present Medications: see Short Stay Collaborative assessment Allergies: Allergies Allergy/AdvReac Type Severity Reaction Status Date / Time No Known Allergies Allergy Verified 02/03/25 10:33 Review of Systems Review of Systems Comment: Ten point ROS negative Exam Exam Comment: Gen appear: No acute distress HEENT: no icterus Chest: No overt resp distress Abd: soft, nontender, nondistended Psych: Stable affect, answering questions appropriately Neuro: A/Ox3 noted to move all extremities spontaneously Ext: no peripheral edema Plan Diagnosis/Plan: Unchanged I have reviewed the history and physical and performed a pertinent physical examination on my patient. No changes have occurred unless specified. Time Spent With Patient Time: Total time managing care of this patient today ____ minutes.
--- NOTE | 2025-04-28 09:35 | P.OPN-COLO_ITS ---
Colonoscopy Operative Note Operative Note Date of Service: 04/28/25 Narrative: Procedure: Upper endoscopy and colonoscopy Indication: Iron deficiency anemia Endoscopist: Kristal Timmons MD Anesthesia Provider: Dr Saranya Rizvi Anesthesia type: MAC Instrument: [id number] and [id number] Colonoscopy Procedure:? The procedure, indications, preparation and potential complications were reviewed with the patient, who indicated understanding and gave written informed consent to proceed. An abdominal binder was affixed to the lower abdomen in the preop area. The patient was then brought to the procedure room. IV anesthesia was administered by the anesthesia provider. A digital rectal exam was performed which was abnormal for external hemorrhoids.? A distal attachment cap was affixed to the tip of the scope and the colonoscope was then inserted through the anus and advanced through the colon and advanced to the cecum at 80 cm.? Appendiceal orifice and ileocecal valve were identified. Mucosa was carefully examined under high definition white light as the instrument was slowly withdrawn in a retrograde panoramic fashion. Retroflexion was performed in ascending colon and rectum. The procedure was not difficult. The quality of the prep was BBPS: 2+3+2 = adequate Withdrawal time 16 minutes Limitations: No limitations Findings: Mucosa: Normal colon and terminal ileum mucosa. Protruding lesions: * 2 sessile polyp of size 3-5 mm in ascending colon. Cold snare polypectomy was performed. The polyps were completely removed and retrieved. * One sessile polyp of size 4 mm in descending colon. Cold snare polypectomy was performed. The polyps were completely removed and retrieved. * Moderate internal hemorrhoids without stigmata of recent bleeding. Excavated lesions: * Mild diverticulosis of left colon with rare diverticula in ascending colon. EGD Procedure:?? The patient was then turned for the endoscopy. The endoscope was introduced through the bite block, and advanced to the 2nd part of the duodenum. The mucosa was carefully examined on slow withdrawal of the endoscope. The patient tolerated the procedure well. There were no immediate complications.? EGD Findings:? * Esophagus:? Normal esophageal mucosa was noted. The Z-line was at 42 cm and irregular to 41 cm. Cold forceps biopsies were taken from GE junction to rule out Barretts esophagus. * Stomach:? Focal erythema and erosions were noted in the proximal antrum along the greater curvature. Remaining gastric mucosa was normal. Retroflexion was found in the cardia. Random cold forceps biopsies were taken from the stomach. * Duodenum:? A few polyps were noted in the duodenal bulb and duodenal sweep ranging from size 3-7 mm. Cold forceps biopsies were taken from the route sales representative polyps. Cold forceps biopsies were also taken from the duodenal bulb and 2nd portion of the duodenum to rule out celiac sprue. Impression: 1. Irregular Z line r/o BE (biopsy) 2. Gastritis (biopsy) 3. Duodenal polyps (biopsy) 4. Normal colon and terminal ileum mucosa 5. Total of 3 polyps removed from the colon 6. Diverticulosis 7. Internal and external hemorrhoids Recommendations:?? * Follow-up path results * Continue PPI * Avoid NSAIDs * H Pylori treatment if biopsies + * Repeat colonoscopy for CRC screening in 3 years if all 3 polyps are adenoma, otherwise 5 years.
[2025-04-28 09:44] VITALS: BP 115/57; PULSE 91; RESP 16; TEMP 36.1; O2SAT 93
[2025-04-28 09:55] VITALS: BP 133/77; PULSE 90; RESP 16; TEMP 36.1; O2SAT 93
[2025-04-28 10:10] VITALS: BP 144/82; PULSE 87; RESP 18; TEMP 36.1; O2SAT 94
--- NOTE | 2025-04-28 10:10 | HO.ANESPROP2 ---
[facility] Active Problems Active Problems: All Active Problems (Updated 04/20/25 @ 14:27 by Josesito Thorne MD) Primary hypertension (Acute) Acute and chronic respiratory failure (Acute) Acute on chronic diastolic (congestive) heart failure (Acute) CHF (congestive heart failure) (Acute) COPD (chronic obstructive pulmonary disease) (Acute) Iron deficiency (Acute) Anemia (Acute) Morbid obesity (Acute) Nose polyp (Acute) Chronic diastolic heart failure (Acute) Hypoventilation associated with obesity syndrome (Acute) Hematoma of left lower extremity (Acute) COPD (chronic obstructive pulmonary disease) (Acute) [place] of toe (Acute) Dysplastic nevi (Acute) Hyperthyroidism (Acute) PAF (paroxysmal atrial fibrillation) (Acute) Lung mass (Acute) Upper respiratory tract infection (Acute) Hx of colonoscopy (Acute) Annual physical exam (Acute) Hx: recurrent pneumonia (Acute) A-fib (Acute) Sleep apnea (Acute) Past Medical History Medical History (Updated 04/20/25 @ 14:27 by Josesito Thorne MD) Acute on chronic diastolic (congestive) heart failure Hypoventilation associated with obesity syndrome COPD exacerbation Hx of atrial flutter Obesity DEVIN (obstructive sleep apnea) COPD (chronic obstructive pulmonary disease) Chronic diastolic heart failure Acute exacerbation of chronic obstructive airways disease Hyperthyroidism Venous insufficiency of both lower extremities Chronic respiratory failure Hx pulmonary embolism PAF (paroxysmal atrial fibrillation) Lung mass Functional capacity: independent ambulation Family History Family History Father Bone cancer Mother COPD (chronic obstructive pulmonary disease) Family history of problems with anesthesia: No Surgical History Surgical History History of esophagogastroduodenoscopy (EGD) H/O cardiac radiofrequency ablation History of Problems with Anesthesia: No Social History Social History Household Members: Spouse Household Members Other:: Housing: House Do you presently have visiting nurse or other home services: No Unable to assess alcohol history related to: Unknown Alcohol intake: current Alcohol intake frequency: holidays/special occasions only Patient Tobacco Use Status: Former Tobacco user Tobacco use type: Cigarette Cigarette Packs Per Day: 1.5 Cigarettes Per Day: 30.0 Years Smoked: 25 e-Cigarette/Vaping Use: Never Used Second Hand Smoke Exposure: No Advance Directives Date on File: 07/14/23 service: No Current occupational status: employed Cognitive needs: No Hearing needs: No Vision needs: Yes Meds Allergies Allergy/AdvReac Type Severity Reaction Status Date / Time No Known Allergies Allergy Verified 02/03/25 10:33 Active Medications: Current Medications Albuterol Sulfate (Albuterol Sulfate (0.083%) 2.5 Mg/3 Ml Vial.Neb) 2.5 mg INHALE ONCE PRN PRN Reason: Shortness of Breath/Wheezing Last Admin: 04/28/25 07:29 Dose: 2.5 mg Lactated Ringer's (Lr) 1,000 mls @ 50 mls/hr IVCONT .Q20H JIMMY Last Admin: 04/28/25 07: Dose: 50 mls/hr Naloxone HCl (Naloxone Hcl 0.4 Mg/Ml Vial) 0.04 mg IVPUSH Q5M PRN PRN Reason: Excessive sedation or RR < 8 Home Medications ?Medication ?Instructions ?Recorded ?Confirmed ?Last Taken ?Type cholecalciferol (vitamin D3) 25 25 mcg PO BEDTIME 07/01/22 04/26/25 10/17/24 History mcg (1,000 unit) tablet multivitamin 1 tab PO BEDTIME 07/01/22 04/26/25 10/17/24 History acetaminophen 500 mg tablet 1,000 mg PO Q6H PRN Pain 07/08/23 04/26/25 07/08/23 History omeprazole magnesium 20 mg 20 mg PO DAILY@0630 07/08/23 04/26/25 10/18/24 History capsule,delayed release thiamine HCl (vitamin B1) 500 mg 500 mg PO BEDTIME 07/08/23 04/26/25 10/17/24 History tablet vitamin E 268 mg (400 unit) capsule 268 mg PO BEDTIME 07/08/23 04/26/25 10/17/24 History CPAP (CPAP Machine/Device) 07/21/23 04/20/25 Unknown History Oxygen Home Use 07/21/23 04/20/25 Unknown History nebulizers 07/21/23 04/20/25 Unknown History ferrous sulfate 325 mg (65 mg 325 mg PO MOTUWETHFR@0900 10/18/24 04/26/25 10/18/24 History iron) tablet Exam Height,Weight and Vital Signs: Height 5 ft 11 in Weight 153.4 kg Last Vital Signs Temp 97 F 04/28/25 09:55 Pulse 90 04/28/25 09:55 Resp 16 04/28/25 09:55 BP 133/77 04/28/25 09:55 Pulse Ox 93 04/28/25 09:55 O2 Del Method Nasal Cannula 04/28/25 09:55 O2 Flow Rate 2 04/28/25 09:55 Airway Mallampati Class: III TM Dist: >3cm Neck ROM: Full Heart: RRR Lungs: CTA Assessment and Plan Assessment Anesthesia Assessment: Anesthesia Plan Discussed Final Anesthetic Review Family History of Problems with Anesthesia: No History of Problems with Anesthesia: No NPO: Yes ASA Class: III Final Preanesthetic Review: Meds/Allgs Chart Reviewed, Consent Obtained/Reviewed and Anes Risks/Benef Reviewed Patient Risk: Intermediate Procedure Risk: Low Anesthetic Plan Anesthetic Plan: MAC: Disposition: Standard PACU
--- NOTE | 2025-04-28 10:15 | HO.POSTANES ---
Post Anesthesia Evaluation Post Anesthesia Evaluation Date of Service: 04/28/25 Vital Signs: Vital Signs Temp Pulse Resp BP Pulse Ox O2 Del Method O2 Flow Rate 04/28/25 10:10 97 F 87 18 144/82 H 94 Nasal Cannula 2 04/28/25 09:55 97 F 90 16 133/77 93 Nasal Cannula 2 04/28/25 09:44 97 F 91 16 115/57 L 93 Nasal Cannula 4 04/28/25 07:19 98.2 F 84 20 146/76 H 90 L Nasal Cannula 4 Anesthesia: Monitored Mental Status: Awake Pain Control: Satisfactory Nausea/Vomiting: None Hydration: Adequate Anesthesia-Related Issues: No Anes. Related Issues
== END 2025-04-28 10:36 | disposition home or self-care (01) ==
PROVIDERS: PCP Internal Medicine; Visit Provider Internal Medicine
PROC: (CPT 45385; principal; 2025-04-28 08:40)
DX: D50.9 Iron deficiency anemia, unspecified (principal); Z86.0101 Personal history of adenomatous and serrated colon polyps; D12.2 Benign neoplasm of ascending colon; D12.4 Benign neoplasm of descending colon; K57.30 Diverticulosis of large intestine without perforation or abscess without bleeding; K64.8 Other hemorrhoids; K64.4 Residual hemorrhoidal skin tags; K31.7 Polyp of stomach and duodenum; K20.80 Other esophagitis without bleeding; K29.80 Duodenitis without bleeding; K29.50 Unspecified chronic gastritis without bleeding; K22.9 Disease of esophagus, unspecified; J41.0 Simple chronic bronchitis; Z99.81 Dependence on supplemental oxygen; E66.9 Obesity, unspecified; Z68.42 Body mass index [BMI] 45.0-49.9, adult; I48.91 Unspecified atrial fibrillation; I50.32 Chronic diastolic (congestive) heart failure; Z86.711 Personal history of pulmonary embolism; Z79.899 Other long term (current) drug therapy; Z98.890 Other specified postprocedural states; Z79.01 Long term (current) use of anticoagulants
CPT/HCPCS: 45385; 43239; 88305; 88313; 88342; J2003; J2250; J2704

== ENCOUNTER → 2025-04-28 06:51 | Outpatient (BNV) | payer BC, SELFPAY | PROVIDERS: PCP Internal Medicine; Visit Provider Internal Medicine | DX: D50.9 Iron deficiency anemia, unspecified (principal); D12.2 Benign neoplasm of ascending colon; D12.4 Benign neoplasm of descending colon; K57.90 Diverticulosis of intestine, part unspecified, without perforation or abscess without bleeding; K64.8 Other hemorrhoids; K29.70 Gastritis, unspecified, without bleeding; K31.7 Polyp of stomach and duodenum; K22.89 Other specified disease of esophagus | CPT/HCPCS: 43239; 45385 ==

== ENCOUNTER 2025-05-03 08:59 | Outpatient (AMB) | payer BC, SELFPAY ==
--- NOTE | 2025-05-03 09:00 | A.OFFVIS_ITS ---
Vital Signs 05/03/25 09:01 Height 5 ft 11 in Weight 341 lb 11.464 oz BMI 47.7 BP 150/56 H Blood Pressure Location Lt brachial Position Sitting Pulse 75 Pulse Source Pulse Oximeter Pulse Oximetry (%) 88 L Oxygen Delivery Method Nasal Cannula Intake Visit Reasons: COPD Hiv/Aids Care Nurse Required: No Accompanied by: Self / Same As Patient Allergies No Known Allergies Allergy (Verified 05/03/25 09:04) HPI Comments Details: The patient is a 64 y/o man with a PMH morbid obesity, chronic hypoxic respiratory failure due to COPD, OHS, DEVIN, chronic diastolic chf, htn, paroxysmal afib s/p ablation, hyperthyroid, history of pe, presented with dyspnea [place] [facility] [place] early July. The patient states his sob has been getting progressively worse over last 2 months. initially on exertion, now at rest. has been needing to increase his home o2 supplement. recent PFTs may 2023 showed severe obstruction with FEV1 - 21%. The patient typically responds well to prednisone. He started feeling better. During the hospitalization he did have an ABG demonstrating a chronic hypercarbic respiratory failure secondary to likely has advanced COPD. He does use a BiPAP or a noninvasive ventilator at home. Will try to get a download from his [employer] company, [employer]. In the meantime he is completing the prednisone taper. Will go ahead and optimize his respiratory therapy by switching over to Trelegy. She continues use the oxygen with good effect. He was participating in pulmonary rehabilitation when he was sent to the ER. He is going to try to get back to pulmonary rehabilitation at this time. If the patient is not better once he completes the prednisone and would like to restart his lower dose he will call for additional prednisone. 10/15/2023 the patient is here for hospital follow-up visit. Apparently he ended up developing an upper respiratory illness and subsequently worsening worsening respiratory symptoms. He was admitted to the [facility]. Viral swab positive for enterovirus. The patient also was noted to have a chest x-ray perihilar congestion consistent with mild heart failure. He was placed on diuretics. The patient was placed on prednisone. He continue using his BiPAP. He did have a blood gas in the hospital demonstrating chronic hypercarbic respiratory failure. He has been using his AVAP. [employer] is [employer]. Will request a download at this time and further adjust the AVAP accordingly. We did review his imaging studies demonstrating the mild heart failure. The patient understands that he will continue with a low-sodium diet. New continue with current respiratory therapy. 01/02/2024 the patient has a telehealth visit today. Recently he developed COVID-19. The patient does take Eliquis and also he is on antiarrhythmic agents. Therefore we placed him on Mulnopinivir. the patient completed a 5 day course any responded very well to it. His chest congestion is improved his breathing is also improved. Overall he is in recovery. He continues use the noninvasive ventilator at nighttime. He has been affecting beneficial. He does use it for more than 4 hours a night. Will plan to repeat his venous blood gas to assess his CO2 and make sure that is responding well to the noninvasive ventilator. In addition to that he continues use the oxygen. He did use the oxygen more often when was sick with COVID-19. Right now is closer to his baseline. The patient does have increased chest congestion so therefore will go ahead and start him on doxycycline case symptoms worsen. The patient should also have some prednisone available in case develops reactive airway disease after having COVID. At this point he can hold off unless his symptoms worsen as well. Will follow-up in 3-4 months and at that point will review his blood work. 05/31/2024 the patient is here for a pulmonary follow-up visit. Overall the p atient has been doing well. He continues uses respiratory therapy with good effect. He has been working on weight loss. He is looking into also participating in the weight loss program. He did take down some information. The meantime he continues using noninvasive ventilator at nighttime. The astral has been affecting beneficial. He did have a repeat blood gas demonstrating his PaCO2 has gone down from 80 mmHg to now 57 mmHg which is excellent. He has been getting supplies readily from the [employer]. He had a last CT scan back in the winter of 2023 still demonstrating the masslike density consistent with developed the atelectasis. Has not changed so is likely to be a benign process. Will discuss further imaging study during the next visit. He continues on the anticoagulation with good effect. Otherwise patient is without any other concerns. 12/06/2024 the patient is here for a pulmonary follow-up visit. Overall the patient seems to be doing fair. He was doing better but then about 3 days ago he started developing worsening shortness of breath and hypoxia. He has been noticing that his oxygen pulse ox has been dipping down to the mid 80s. He had been in the hospital we did review his hospital stay. Actually did see him while he was there and adjusted his noninvasive ventilator while he was there. Seems that the setting some back to his previous ones though we need to increase the pressures. I am going to request access to air view if not send a prescription over to his [employer] company. In the meantime the patient has been having significant amount of weight gain. Likely volume overload at this time resulting in congestive heart failure and worsening hypoxia. He has Lasix 40 mg b.i.d.. Will go ahead and double that to 80 mg b.i.d. for 3 days. He is going to monitor closely his weight. If however his oxygen does not improve or if it worsens he is going to go to the ER for further evaluation. Currently I believe on 4 L and improved his pulse ox to the low 90s. He is going to keep it at 4 L for now. Again, if his symptoms worsen if his hypoxia worsens he needs to go the ER. It become back in 2 weeks so we can reassess. Hopefully we can adjust his astral and he can also make some dietary changes specially since he does take or consume significant amount of sodium in his drinks. 12/23/2024 the patient is here for a pulmonary follow-up visit. The patient is still struggling with his noninvasive ventilator. The pressures are not high enough. We did send a prescription to the [employer] but they have not adjusted as of yet. He did bring his machine in a did evaluated. Seems like he has to patient's settings P1 and P2 and therefore even though we had adjusted in the hospital he is using the different setting. Therefore I adjusted both. I have to reach out to [facility] so they can raise P 1. We did increase his minimum pressure to 10 from 5 increased his maximum pressure to 22 from 10. Also changed his auto EPAP to 8-10. The patient has respiratory rate was increased from 15-16. He did try the off any seem to tolerated okay. Breathing is better. His monitoring closely his weight and is taking his diuretics. He will go ahead and have blood work including a blood gas the coming days. Will adjust his noninvasive accordingly. 02/03/2025 The patient is here for a pulmonary follow up visit. The patient is doing better with the IVAPS, tolerating the pressures better. The therapy has been effective and beneficial. He also started using a POC, although, his oxygen requierements have been going up and the conserving device is not enough at times. He does increase to 5l/pulse with activity, but still drops to the mid 80's. We will continue to monitor, but may need to return to the gas tanks. He continues to use his respiratory therapy with good effect. He will undergo bloodwork foe his F/U and then consider repeating the PFTs and pulmonary rehab. However, right now his is helping his with a serious health condition. 05/03/2025 the patient is here for pulmonary follow-up visit. The patient had some issues with increased oxygen needs lately. He has been having to increase his pulse oxygen from 3 L to 4 L. Although the patient has had some dietary indiscretions and he has had increased weight gain. He also had surgery required anesthesia and likely also had fluid administered during the procedure therefore increasing his volume status. The patient did take 1 additional Lasix last week. I did encourage him to take additional Lasix for the next 3 days. The patient also continues his respiratory therapy. He continues uses noninvasive ventilator as prescribed. Recently had to be replaced. He did bring it in I did look at it seems to be doing okay and I decrease the alarm settings. The patient will continue to use it as prescribed. Right now no imaging studies are warranted. His last CT scan was back in October 2024 which we did personally reviewed demonstrating pulmonary edema. Will continue to work with the volume status at this time the definitely affects is gas exchange. Patient follow-up in 4 months if he has any issues prior to this he will call for an earlier assessment. [facility] Medical History (Updated 04/20/25 @ 14:27 by Josesito Thorne MD) Acute on chronic diastolic (congestive) heart failure Hypoventilation associated with obesity syndrome COPD exacerbation Hx of atrial flutter Obesity DEVIN (obstructive sleep apnea) COPD (chronic obstructive pulmonary disease) Chronic diastolic heart failure Acute exacerbation of chronic obstructive airways disease Hyperthyroidism Venous insufficiency of both lower extremities Chronic respiratory failure Hx pulmonary embolism PAF (paroxysmal atrial fibrillation) Lung mass Surgical History History of esophagogastroduodenoscopy (EGD) H/O cardiac radiofrequency ablation Family History Father Bone cancer Mother COPD (chronic obstructive pulmonary disease) Social History Household Members: Spouse Household Members Other:: Housing: House Do you presently have visiting nurse or other home services: No Unable to assess alcohol history related to: Unknown Alcohol intake: current Alcohol intake frequency: holidays/special occasions only Patient Tobacco Use Status: Former Tobacco user Tobacco use type: Cigarette Cigarette Packs Per Day: 1.5 Cigarettes Per Day: 30.0 Years Smoked: 25 e-Cigarette/Vaping Use: Never Used Second Hand Smoke Exposure: No Advance Directives Date on File: 07/14/23 service: No Current occupational status: employed Cognitive needs: No Hearing needs: No Vision needs: Yes Review of Systems Const Denies fever(s) and Reports weight loss Eyes Denies exophthalmos Card Denies chest pain and Reports dyspnea on exertion Resp Reports chest congestion, Reports cough, Reports dyspnea on exertion and Denies wheezing GI Reports no additional complaints Musc Reports no additional complaints Skin/Breast Denies rash Neuro Reports no additional complaints Venu/Lymph Denies lymphadenopathy Aller/Immun Denies wheezing Physical Exam Vital Signs: Last Vital Signs Pulse 75 05/03/25 09:01 BP 150/56 H 05/03/25 09:01 Pulse Ox 88 L 05/03/25 09:01 Oxygen Delivery Method Nasal Cannula 05/03/25 09:01 BMI result Body Mass Index 47.7 Last Vital Signs Temp 97.6 F 10/23/24 12:00 Pulse 71 10/23/24 12:00 Resp 20 10/23/24 12:00 BP 117/70 10/23/24 12:00 Pulse Ox 90 L 10/23/24 12:00 O2 Del Method BiPAP 10/23/24 12:00 O2 Flow Rate 4 10/23/24 08:00 Oxygen Flow Rate 2 10/18/24 12:52 BMI result Body Mass Index 46.6 Const General: cooperative, comfortable, no acute distress, alert and awake Nutritional Appearance: obese morbidly obese Orientation/consciousness: patient oriented x3 Limitations: no limitations HEENT Head: Yes normocephalic and Yes atraumatic Neck Neck: Yes trachea midline, Yes supple and Yes no JVD Chest Chest palpation & inspection: normal inspection of the chest Resp Effort & Inspection: normal respiratory effort Auscultation: diminished lung sounds Cardio Jugular venous distension: no JVD Palpation: normal PMI Rate: regular rate Rhythm: regular rhythm Heart sounds: S1 normal heart sound present, S2 normal heart sound present, no click, no gallops and no murmurs GI Auscultation: normal bowel sounds Skin General skin exam: no rashes or lesions noted Neuro General: patient oriented x3 and no focal motor deficits Extrem General: Yes no clubbing, cyanosis or edema Psych Appearance: grossly normal Assessment & Plan Assessment & Plan (1) COPD (chronic obstructive pulmonary disease): Comment: Severe on supplemental O2 and BiPAP, follow-up with pulmonology Code(s): J44.9 - Chronic obstructive pulmonary disease, unspecified Category: Medical Qualifiers: COPD type: COPD with acute exacerbation Qualified Code(s): J44.1 - Chronic obstructive pulmonary disease with (acute) exacerbation (2) Chronic respiratory failure: Comment: on supplemental O2 PRN Code(s): J96.10 - Chronic respiratory failure, unspecified whether with hypoxia or hypercapnia Category: Medical Qualifiers: Respiratory failure complication: hypoxia and hypercapnia Qualified Code(s): J96.11 - Chronic respiratory failure with hypoxia; J96.12 - Chronic respiratory failure with hypercapnia (3) Hx pulmonary embolism: Comment: 2013, on lifetime anticoagulation Code(s): Z86.711 - Personal history of pulmonary embolism Category: Medical (4) Sleep apnea: Code(s): G47.30 - Sleep apnea, unspecified Category: Medical Qualifiers: Sleep apnea type: obstructive Qualified Code(s): G47.33 - Obstructive sleep apnea (adult) (pediatric) (5) Lung mass: Code(s): R91.8 - Other nonspecific abnormal finding of lung field Category: Medical (6) Hypoventilation associated with obesity syndrome: Code(s): E66.2 - Morbid (severe) obesity with alveolar hypoventilation Category: Medical (7) Acute and chronic respiratory failure: Code(s): J96.20 - Acute and chronic respiratory failure, unspecified whether with hypoxia or hypercapnia Category: Medical Qualifiers: Respiratory failure complication: hypoxia Qualified Code(s): J96.21 - Acute and chronic respiratory failure with hypoxia Plan continue Trelegy Continue Daliresp REY as needed continue oxygen supplementation, POC 3- 5L/pulse to keep pox>87%. Consider going back on oxygen tanks due to his high oxygen need Astral AVAPS at night, adjusted min PS 10;maxPS22, aEPAP 8-10, RR17 continue Eliquis diureses as tolerated, will take aditional lasix x 3 days low Na diet lung mass likely rounded atelectasis associated with a calcified pleural plaque bloodwok, VBG F/U 2-3 months Coding Level of Care Code Est Pt Level 4 (71271) Complex EM visit Add On G2211 Diagnoses Chronic obstructive pulmonary disease with acute exacerbation J44.1 COPD type: COPD with acute exacerbation Chronic respiratory failure with hypoxia and hypercapnia J96.11; J96.12 Respiratory failure complication: hypoxia and hypercapnia Hx pulmonary embolism Z86.711 Obstructive sleep apnea syndrome G47.33 Sleep apnea type: obstructive Lung mass R91.8 Hypoventilation associated with obesity syndrome E66.2 Acute on chronic respiratory failure with hypoxia J96.21 Respiratory failure complication: hypoxia Time Spent (min) 18
[2025-05-03 09:01] VITALS: BP 150/56; PULSE 75; O2SAT 88; BMI 47.7
--- OUTSIDE RECORDS SUMMARY | 2025-05-03 09:42 | XMS_ITS | Patient Health Record ---
[facility] Address [address] [place] [address] Care Team Providers Care Media Theorist And Author Of Name Role Phone Alea Hull MD Primary Care Provider Hector Brown Unavailable [phone] Allergies No Known Allergies Reason For Referral [...] 1 tablet Orally Once a day Active [place] 3 1000 MG 1 capsule Orally Onc [...] Insured Coverage Start Date Coverage End Date [facility] All Others [address] [place] [address] [phone] [id number] Lissy Bill Spouse - patient is [...] leg surgery 01/12/24 Hospitalization History Reason Date(Month/Year) [facility] [place] - fell 01/12/24
== END 2025-05-03 09:25 | disposition home or self-care (01) ==
LOC: HO.HPS 08:59
PROVIDERS: PCP Internal Medicine; Visit Provider Hospitalist
DX: J44.1 Chronic obstructive pulmonary disease with (acute) exacerbation (principal); J96.11 Chronic respiratory failure with hypoxia; J96.12 Chronic respiratory failure with hypercapnia; Z86.711 Personal history of pulmonary embolism; G47.33 Obstructive sleep apnea (adult) (pediatric); R91.8 Other nonspecific abnormal finding of lung field; E66.2 Morbid (severe) obesity with alveolar hypoventilation; J96.21 Acute and chronic respiratory failure with hypoxia
CPT/HCPCS: 99214

== ENCOUNTER → 2025-05-03 08:59 | Outpatient (BNVA) | payer BC, SELFPAY | PROVIDERS: PCP Internal Medicine; Visit Provider Hospitalist | DX: J96.21 Acute and chronic respiratory failure with hypoxia (principal) ==

== ENCOUNTER 2025-05-25 13:14 | Outpatient (AMB) | payer BC, SELFPAY ==
--- NOTE | 2025-05-25 13:14 | A.OFFVIS_ITS ---
Intake Visit Reasons: S/P double; Dr. Timmons Intake Note: Mario presents in the office as a follow up for his EGD and COLO. CC: states that he is questioning allergies or lactoce intolerance - loose stools after he eats. Allergies No Known Allergies Allergy (Verified 05/25/25 13:15) HPI Comments Details: 64 y.o M with PMH of obesity, COPD on O2, hx of PE in 2012, AFib on eliquis, diastolic HF, who is here for anemia. Pt reports having an emergency surgery of LEFT leg in Jan 2024 at [facility]: Transfered from [facility] [place] as CAT 2 trauma - [address] of the LLE was completed with identification of a large hematoma extending from the mid thigh to the calf with concern for active extravasation. Underwent emergent hematoma evacuation and fasciotomies to prevent compartment syndrome. Lost significant amt of blood H/H dropped from 14 to 8 gm/dl within a day, also required PRBC transfusion intra- op. Since his discharge from hospital, he has been started on PO iron supplements with good response. Most recent CBC with normalisation of H/H. Pt without abd pain, N,V. Stools are dark with iron supplements but prior to that were brown. No blood. Last colo 2021: ([place]) Single 10 mm sigmoid polyp was removed. Repeat colo recommended in 3 years. 04/28/25: 1. Irregular Z line r/o BE (biopsy) 2. Gastritis (biopsy) 3. Duodenal polyps (biopsy) 4. Normal colon and terminal ileum mucosa 5. Total of 3 polyps removed from the colon 6. Diverticulosis 7. Internal and external hemorrhoids A. Colon, ascending, polypectomies: Tubular adenomata; negative for high-grade dysplasia or carcinoma. B. Colon, descending, polypectomy: Tubular adenoma; negative for high-grade dysplasia or carcinoma. C. Duodenum, biopsy: Duodenal mucosa within normal limits. D. Duodenum, polypectomy: Chronic inactive duodenitis with Arianna gland hyperplasia. E. Stomach, random, biopsy: Antral-type and oxyntic mucosa with mild chronic inactive inflammation; no Helicobacter organisms seen. F. EG junction, biopsy: - Cardiofundic-type mucosa with mild chronic inactive inflammation; no intestinal metaplasia seen. - Squamous epithelium within normal limits 05/25/25: Here as televisit for post procedure follow up. Reviewed results of EGD and colo. Pt aware that will need repeat colo in 3 years. REports was dx with COPD flare a couple of weeks ago. Was on doxy and pred. Reports increased loose stools since then 2-3 times a day without any abd pain, cramping, cchange in appetite. [facility] Medical History Acute on chronic diastolic (congestive) heart failure Hypoventilation associated with obesity syndrome COPD exacerbation Hx of atrial flutter Obesity DEVIN (obstructive sleep apnea) COPD (chronic obstructive pulmonary disease) Chronic diastolic heart failure Acute exacerbation of chronic obstructive airways disease Hyperthyroidism Venous insufficiency of both lower extremities Chronic respiratory failure Hx pulmonary embolism PAF (paroxysmal atrial fibrillation) Lung mass Surgical History History of esophagogastroduodenoscopy (EGD) H/O cardiac radiofrequency ablation Family History Father Bone cancer Mother COPD (chronic obstructive pulmonary disease) Social History Household Members: Spouse Household Members Other:: Housing: House Do you presently have visiting nurse or other home services: No Unable to assess alcohol history related to: Unknown Alcohol intake: current Alcohol intake frequency: holidays/special occasions only Patient Tobacco Use Status: Former Tobacco user Tobacco use type: Cigarette Cigarette Packs Per Day: 1.5 Cigarettes Per Day: 30.0 Years Smoked: 25 e-Cigarette/Vaping Use: Never Used Second Hand Smoke Exposure: No Advance Directives Date on File: 07/14/23 service: No Current occupational status: employed Cognitive needs: No Hearing needs: No Vision needs: Yes Review of Systems Const All systems reviewed & are unremarkable except as noted in HPI and below Physical Exam Vital Signs: telephone visit Telehealth Telehealth Telehealth Platform: Telephone Location of provider rendering services: practice address Location of patient: address on file Patient Identification confirmed using: Name, : Yes Telehealth method: voice only Patient verbally consented to treatment: Yes Patient verbally consented to billing insurance company: Yes Patient informed of any privacy concerns related to visit: Yes Minutes spent on Phone/Video with Pt.: 8 Assessment & Plan Assessment & Plan (1) Anemia: Code(s): D64.9 - Anemia, unspecified Category: Medical (2) Personal history of colonic polyps: Code(s): Z86.0100 - Personal history of colon polyps, unspecified Category: Medical (3) Acute diarrhea: Code(s): R19.7 - Diarrhea, unspecified Category: Medical Plan #GUICHO: Developed iron deficiency anemia earlier this year after extensive hematoma formation and blood loss in LEFT lower extremity after a fall. H/H 14-->8. Now normalized with PO iron supplementation. #Polyp surveillance: Had x3 T.A on colo. Due for next colo in 2027. #Acute diarrhea likely from Abx. Advised pt to call office if not resolved within 14d of completing Abx therapy in which case low threshold to get stool testing done for C Diff. Otherwise PRN follow up Medications: Discontinued doxycycline hyclate Discontinued Reason: Patient no longer taking 100 mg PO BID 10 days 20 caps 0RF prednisone Discontinued Reason: Patient no longer taking PO daily; Take 2 tabs daily x 5 days, then 1 tablet daily x 5 days 10 days 15 tabs 0RF prednisone Discontinued Reason: Patient no longer taking 40 mg (2 x 20 mg) PO DAILY 14 tabs 0RF Coding Level of Care Code Tele Est Pt Level 4 (85707) Diagnoses Anemia D64.9 Personal history of colonic polyps Z86.0100 Acute diarrhea R19.7
--- OUTSIDE RECORDS SUMMARY | 2025-05-25 15:30 | XMS_ITS | Patient Health Record ---
[facility] Organization [facility] Address [address] [place] [address] Care Team Providers Care Senior Energy Market Coordinator Name Role Phone Alea Hull MD Primary Care Provider Hector Brown Unavailable [phone] Allergies No Known Allergies Reason For Referral [...] 1 tablet Orally Once a day Active [place] 3 1000 MG 1 capsule Orally Onc [...] Insured Coverage Start Date Coverage End Date [facility] All Others [address] [place] [address] [phone] [id number] Lissy Bill Spouse - patient is [...] leg surgery 01/12/24 Hospitalization History Reason Date(Month/Year) [facility] [place] [facility] - fell 01/12/24
== END 2025-05-25 14:28 | disposition home or self-care (01) ==
LOC: HO.HGI 13:14
PROVIDERS: PCP Internal Medicine; Visit Provider Internal Medicine
DX: D64.9 Anemia, unspecified (principal); Z86.0100 Personal history of colon polyps, unspecified; R19.7 Diarrhea, unspecified
CPT/HCPCS: 99214

== ENCOUNTER 2025-06-07 14:18 | Outpatient (AMB) | payer BC, SELFPAY ==
[2025-06-07 14:20] VITALS: BP 160/62; PULSE 96; O2SAT 86; BMI 47.3
--- NOTE | 2025-06-07 14:20 | MHC.OFFVIS ---
Vital Signs 06/07/25 14:20 Height 5 ft 11 in Weight 339 lb BMI 47.3 BP 160/62 H Blood Pressure Location Rt brachial Position Sitting Pulse 96 Pulse Source Pulse Oximeter Pulse Oximetry (%) 86 L Oxygen Delivery Method Nasal Cannula Oxygen Flow Rate 4 Intake Visit Reasons: hypoxia Allergies No Known Allergies Allergy (Verified 06/07/25 14:22) HPI Comments Details: The patient is a 64 y/o man with a PMH morbid obesity, chronic hypoxic respiratory failure due to COPD, OHS, DEVIN, chronic diastolic chf, htn, paroxysmal afib s/p ablation, hyperthyroid, history of pe, presented with dyspnea to the [facility] in early July. The patient states his sob has been getting progressively worse over last 2 months. initially on exertion, now at rest. has been needing to increase his home o2 supplement. recent PFTs may 2023 showed severe obstruction with FEV1 - 21%. The patient typically responds well to prednisone. He started feeling better. During the hospitalization he did have an ABG demonstrating a chronic hypercarbic respiratory failure secondary to likely has advanced COPD. He does use a BiPAP or a noninvasive ventilator at home. Will try to get a download from his [employer] company, [employer]. In the meantime he is completing the prednisone taper. Will go ahead and optimize his respiratory therapy by switching over to Trelegy. She continues use the oxygen with good effect. He was participating in pulmonary rehabilitation when he was sent to the ER. He is going to try to get back to pulmonary rehabilitation at this time. If the patient is not better once he completes the prednisone and would like to restart his lower dose he will call for additional prednisone. 10/15/2023 the patient is here for hospital follow-up visit. Apparently he ended up developing an upper respiratory illness and subsequently worsening worsening respiratory symptoms. He was admitted to the [facility]. Viral swab positive for enterovirus. The patient also was noted to have a chest x-ray perihilar congestion consistent with mild heart failure. He was placed on diuretics. The patient was placed on prednisone. He continue using his BiPAP. He did have a blood gas in the hospital demonstrating chronic hypercarbic respiratory failure. He has been using his AVAP. [employer] is [employer]. Will request a download at this time and further adjust the AVAP accordingly. We did review his imaging studies demonstrating the mild heart failure. The patient understands that he will continue with a low-sodium diet. New continue with current respiratory therapy. 01/02/2024 the patient has a telehealth visit today. Recently he developed COVID-19. The patient does take Eliquis and also he is on antiarrhythmic agents. Therefore we placed him on Mulnopinivir. the patient completed a 5 day course any responded very well to it. His chest congestion is improved his breathing is also improved. Overall he is in recovery. He continues use the noninvasive ventilator at nighttime. He has been affecting beneficial. He does use it for more than 4 hours a night. Will plan to repeat his venous blood gas to assess his CO2 and make sure that is responding well to the noninvasive ventilator. In addition to that he continues use the oxygen. He did use the oxygen more often when was sick with COVID-19. Right now is closer to his baseline. The patient does have increased chest congestion so therefore will go ahead and start him on doxycycline case symptoms worsen. The patient should also have some prednisone available in case develops reactive airway disease after having COVID. At this point he can hold off unless his symptoms worsen as well. Will follow-up in 3-4 months and at that point will review his blood work. 05/31/2024 the patient is here for a pulmonary follow-up visit. Overall the patient has been doing well. He continues uses respiratory therapy with good effect. He has been working on weight loss. He is looking into also participating in the weight loss program. He did take down some information. The meantime he continues using noninvasive ventilator at nighttime. The astral has been affecting beneficial. He did have a repeat blood gas demonstrating his PaCO2 has gone down from 80 mmHg to now 57 mmHg which is excellent. He has been getting supplies readily from the [employer]. He had a last CT scan back in the winter of 2023 still demonstrating the masslike density consistent with developed the atelectasis. Has not changed so is likely to be a benign process. Will discuss further imaging study during the next visit. He continues on the anticoagulation with good effect. Otherwise patient is without any other concerns. 12/06/2024 the patient is here for a pulmonary follow-up visit. Overall the patient seems to be doing fair. He was doing better but then about 3 days ago he started developing worsening shortness of breath and hypoxia. He has been noticing that his oxygen pulse ox has been dipping down to the mid 80s. He had been in the hospital we did review his hospital stay. Actually did see him while he was there and adjusted his noninvasive ventilator while he was there. Seems that the setting some back to his previous ones though we need to increase the pressures. I am going to request access to air view if not send a prescription over to his [employer] company. In the meantime the patient has been having significant amount of weight gain. Likely volume overload at this time resulting in congestive heart failure and worsening hypoxia. He has Lasix 40 mg b.i.d.. Will go ahead and double that to 80 mg b.i.d. for 3 days. He is going to monitor closely his weight. If however his oxygen does not improve or if it worsens he is going to go to the ER for further evaluation. Currently I believe on 4 L and improved his pulse ox to the low 90s. He is going to keep it at 4 L for now. Again, if his symptoms worsen if his hypoxia worsens he needs to go the ER. It become back in 2 weeks so we can reassess. Hopefully we can adjust his astral and he can also make some dietary changes specially since he does take or consume significant amount of sodium in his drinks. 12/23/2024 the patient is here for a pulmonary follow-up visit. The patient is still struggling with his noninvasive ventilator. The pressures are not high enough. We did send a prescription to the [employer] but they have not adjusted as of yet. He did bring his machine in a did evaluated. Seems like he has to patient's settings P1 and P2 and therefore even though we had adjusted in the hospital he is using the different setting. Therefore I adjusted both. I have to reach out to [facility] so they can raise P 1. We did increase his minimum pressure to 10 from 5 increased his maximum pressure to 22 from 10. Also changed his auto EPAP to 8-10. The patient has respiratory rate was increased from 15-16. He did try the off any seem to tolerated okay. Breathing is better. His monitoring closely his weight and is taking his diuretics. He will go ahead and have blood work including a blood gas the coming days. Will adjust his noninvasive accordingly. 02/03/2025 The patient is here for a pulmonary follow up visit. The patient is doing better with the IVAPS, tolerating the pressures better. The therapy has been effective and beneficial. He also started using a POC, although, his oxygen requierements have been going up and the conserving device is not enough at times. He does increase to 5l/pulse with activity, but still drops to the mid 80's. We will continue to monitor, but may need to return to the gas tanks. He continues to use his respiratory therapy with good effect. He will undergo bloodwork foe his F/U and then consider repeating the PFTs and pulmonary rehab. However, right now his is helping his with a serious health condition. 05/03/2025 the patient is here for pulmonary follow-up visit. The patient had some issues with increased oxygen needs lately. He has been having to increase his pulse oxygen from 3 L to 4 L. Although the patient has had some dietary indiscretions and he has had increased weight gain. He also had surgery required anesthesia and likely also had fluid administered during the procedure therefore increasing his volume status. The patient did take 1 additional Lasix last week. I did encourage him to take additional Lasix for the next 3 days. The patient also continues his respiratory therapy. He continues uses noninvasive ventilator as prescribed. Recently had to be replaced. He did bring it in I did look at it seems to be doing okay and I decrease the alarm settings. The patient will continue to use it as prescribed. Right now no imaging studies are warranted. His last CT scan was back in October 2024 which we did personally reviewed demonstrating pulmonary edema. Will continue to work with the volume status at this time the definitely affects is gas exchange. Patient follow-up in 4 months if he has any issues prior to this he will call for an earlier assessment. 06/07/2025 the patient is here for pulmonary follow-up visit. He is still does not feel like his baseline. He continues use more oxygen than at baseline. The patient did call prior and he was placed on doxycycline prednisone. For worsening respiratory symptoms and cough. Initially he has had some relief but then it subsided. He was placed on another course. He has not seen any significant improvement ever since. He is still using more oxygen. He is using the portable oxygen concentrator. Although sometimes he has a hard time with a pulse. He is wondering about continuous flow. Recently he also started taking additional diuretics for lower extremity edema and increased weight gain. I do believe this is a very good option. As far as respiratory medications he is really optimize with the Trelegy inhaler and also has a nebulizer that he uses several times a day. I do believe that he will be a good candidate for Ohtuvayre based on the fact that he has been on some prednisone use. Currently on 10 mg hopefully can stop the taper in the next few days. He will continue with his respiratory therapy and continue with diuresis as tolerated. He continues uses noninvasive ventilator at nighttime with good effect. Does use it for more than 4 hours a night. Sometimes he also uses a as needed during the daytime. COUNT INCLUDES THE [facility] Medical History Acute on chronic diastolic (congestive) heart failure Hypoventilation associated with obesity syndrome COPD exacerbation Hx of atrial flutter Obesity DEVIN (obstructive sleep apnea) COPD (chronic obstructive pulmonary disease) Chronic diastolic heart failure Acute exacerbation of chronic obstructive airways disease Hyperthyroidism Venous insufficiency of both lower extremities Chronic respiratory failure Hx pulmonary embolism PAF (paroxysmal atrial fibrillation) Lung mass Surgical History History of esophagogastroduodenoscopy (EGD) H/O cardiac radiofrequency ablation Family History Father Bone cancer Mother COPD (chronic obstructive pulmonary disease) Social History Household Members: Spouse Household Members Other:: Housing: House Do you presently have visiting nurse or other home services: No Unable to assess alcohol history related to: Unknown Alcohol intake: current Alcohol intake frequency: holidays/special occasions only Patient Tobacco Use Status: Former Tobacco user Tobacco use type: Cigarette Cigarette Packs Per Day: 1.5 Cigarettes Per Day: 30.0 Years Smoked: 25 e-Cigarette/Vaping Use: Never Used Second Hand Smoke Exposure: No Advance Directives Date on File: 07/14/23 service: No Current occupational status: employed Cognitive needs: No Hearing needs: No Vision needs: Yes Review of Systems Const Denies fever(s) and Reports weight loss Eyes Denies exophthalmos Card Denies chest pain and Reports dyspnea on exertion Resp Reports chest congestion, Reports cough, Reports dyspnea on exertion and Denies wheezing GI Reports no additional complaints Musc Reports no additional complaints Skin/Breast Denies rash Neuro Reports no additional complaints Venu/Lymph Denies lymphadenopathy Aller/Immun Denies wheezing Physical Exam Vital Signs: Last Vital Signs Pulse 96 06/07/25 14:20 BP 160/62 H 06/07/25 14:20 Pulse Ox 86 L 06/07/25 14:20 Oxygen Delivery Method Nasal Cannula 06/07/25 14:20 Oxygen Flow Rate 4 06/07/25 14:20 BMI result Body Mass Index 47.3 Assessment & Plan Assessment & Plan (1) COPD (chronic obstructive pulmonary disease): Comment: Severe on supplemental O2 and BiPAP, follow-up with pulmonology Code(s): J44.9 - Chronic obstructive pulmonary disease, unspecified Category: Medical Qualifiers: COPD type: COPD with acute exacerbation Qualified Code(s): J44.1 - Chronic obstructive pulmonary disease with (acute) exacerbation (2) Chronic respiratory failure: Comment: on supplemental O2 PRN Code(s): J96.10 - Chronic respiratory failure, unspecified whether with hypoxia or hypercapnia Category: Medical Qualifiers: Respiratory failure complication: hypoxia and hypercapnia Qualified Code(s): J96.11 - Chronic respiratory failure with hypoxia; J96.12 - Chronic respiratory failure with hypercapnia (3) Hx pulmonary embolism: Comment: 2013, on lifetime anticoagulation Code(s): Z86.711 - Personal history of pulmonary embolism Category: Medical (4) Sleep apnea: Code(s): G47.30 - Sleep apnea, unspecified Category: Medical Qualifiers: Sleep apnea type: obstructive Qualified Code(s): G47.33 - Obstructive sleep apnea (adult) (pediatric) (5) Lung mass: Code(s): R91.8 - Other nonspecific abnormal finding of lung field Category: Medical (6) Hypoventilation associated with obesity syndrome: Code(s): E66.2 - Morbid (severe) obesity with alveolar hypoventilation Category: Medical (7) Acute and chronic respiratory failure: Code(s): J96.20 - Acute and chronic respiratory failure, unspecified whether with hypoxia or hypercapnia Category: Medical Qualifiers: Respiratory failure complication: hypoxia Qualified Code(s): J96.21 - Acute and chronic respiratory failure with hypoxia (8) Acute on chronic diastolic (congestive) heart failure: Comment: Echocardiogram 07/23 normal EF, nl RV systolic function Code(s): I50.33 - Acute on chronic diastolic (congestive) heart failure Category: Medical (9) Chronic diastolic heart failure: Comment: Echo 07/23 nl EF, F/U [facility], heart failure with preserved ejection fraction Code(s): I50.32 - Chronic diastolic (congestive) heart failure Category: Medical (10) CHF (congestive heart failure): Code(s): I50.9 - Heart failure, unspecified Category: Medical Qualifiers: Heart failure chronicity: unspecified Heart failure type: unspecified Qualified Code(s): I50.9 - Heart failure, unspecified Plan continue Trelegy Continue Daliresp REY as needed start Ohtuvayre nebs BID continue oxygen supplementation, POC 3- 5L/pulse to keep pox>87%. Consider going back on oxygen tanks due to his high oxygen need Astral AVAPS at night, adjusted min PS 10;maxPS22, aEPAP 8-10, RR17 continue Eliquis diureses as tolerated, will take aditional lasix x 3-5days low Na diet lung mass likely rounded atelectasis associated with a calcified pleural plaque bloodwok, VBG, CXR next week F/U 3-4 months Orders: Orders Venous Blood Gas Today I48.0 - Paroxysmal atrial fibrillation, I50.32 - Chronic diastolic (congestive) heart failure, I50.33 - Acute on chronic diastolic (congestive) heart failure, I50.9 - Heart failure, unspecified Immunoglobulin E Today I48.0 - Paroxysmal atrial fibrillation, I50.32 - Chronic diastolic (congestive) heart failure, I50.33 - Acute on chronic diastolic (congestive) heart failure, I50.9 - Heart failure, unspecified Complete Blood Count Auto Diff Today I48.0 - Paroxysmal atrial fibrillation, I50.32 - Chronic diastolic (congestive) heart failure, I50.33 - Acute on chronic diastolic (congestive) heart failure, I50.9 - Heart failure, unspecified Erythrocyte Sedimentation Rate Today I48.0 - Paroxysmal atrial fibrillation, I50.32 - Chronic diastolic (congestive) heart failure, I50.33 - Acute on chronic diastolic (congestive) heart failure, I50.9 - Heart failure, unspecified Basic Metabolic Panel Today I48.0 - Paroxysmal atrial fibrillation, I50.32 - Chronic diastolic (congestive) heart failure, I50.33 - Acute on chronic diastolic (congestive) heart failure, I50.9 - Heart failure, unspecified XR chest 2V Today I48.0 - Paroxysmal atrial fibrillation, I50.32 - Chronic diastolic (congestive) heart failure, I50.33 - Acute on chronic diastolic (congestive) heart failure, I50.9 - Heart failure, unspecified Coding Level of Care Code Est Pt Level 4 (58840) Complex EM visit Add On G2211 Diagnoses Chronic obstructive pulmonary disease with acute exacerbation J44.1 COPD type: COPD with acute exacerbation Chronic respiratory failure with hypoxia and hypercapnia J96.11; J96.12 Respiratory failure complication: hypoxia and hypercapnia Hx pulmonary embolism Z86.711 Obstructive sleep apnea syndrome G47.33 Sleep apnea type: obstructive Lung mass R91.8 Hypoventilation associated with obesity syndrome E66.2 Acute on chronic respiratory failure with hypoxia J96.21 Respiratory failure complication: hypoxia Acute on chronic diastolic (congestive) heart failure I50.33 Chronic diastolic heart failure I50.32 Congestive heart failure, unspecified HF chronicity, unspecified heart failure type I50.9 Heart failure chronicity: unspecified Heart failure type: unspecified Time Spent (min) 17
--- OUTSIDE RECORDS SUMMARY | 2025-06-07 15:11 | XMS_ITS | Data Portability ---
Author Organization [place] - [facility], Allergy Address [address] [address] Care Team Providers Care Sumac Tanner Name Role Phone NICOLLE BLACK Referring Provider [phone] Assessment Encounter Date Assessment Date Assessment LastModified [...] who assisted ronit Not available 08/27/2024 16:54:18 04/22/2025 04/22/2025 64-year-old male on Eliquis presents for reevaluation of columellar exophytic growth. This has been a recurrent issue for 10 years s/p excision 4-5 times. Pathology demonstrated verruca vulgaris. Exam demonstrates recurrence of 1.5 x 1.5 warty lesion on columella. Recommend follow-up with his teaching specialists to discuss possible cryotherapy. Otherwise, patient can return for an office excision as long as he hold his Eliquis for 3 days prior. We discussed considering off label Gardasil vaccination as this may reduce recurrence. Patient will return for evaluation as needed. [email or web address] Not available 04/22/2025 16:54:01 Plan of Treatment Reminders Order Date Submit Date Provider Last Modified By Organization Details Last Modified Time Details Appointments None recorded. Lab surgical pathology study 2023 024 cristina [email or web address] [facility] (Centralized Electronic Ordering - All Locations), Patient Can Go To The Location Of Their Choice, [address] 08:20:27 Referral None recorded. Procedures None recorded. 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 Procedures Surgical History Date Name Laterality Status Provider Name and Address Organization Details Recorded Time Excision skin completed LYDIA RICKETTS PA-C 100 [facility],[address], [address], [facility] - [facility] [place] 08/27/2024 16:43:51 Imaging Results None recorded. Procedure Notes None recorded. Medical Equipment None Reported. Medications Name Sig Start Date Stop Date Status Note LastModified by Organization Details LastModified Time amoxicillin 500 mg capsule TAKE 1 CAPSULE BY MOUTH EVERY 8 HOURS UNTIL FINISHED 04/22 completed Not Available Not Available Not Available furosemide 40 mg tablet TAKE 1 [...] BY MOUTH EVERY 8 HOURS UNTIL GONE 04/22 completed Not Available Not Available Not Available diltiazem ER 240 mg capsule,24 hr,extended [...] HCL ER 120 mg capsule,ext ended release Take 240 mg every day by oral route. 04/22 completed Not Available Not Available Not Available levalbutero l 1.25 mg/3 mL solution [...] Not Available Not Available No t Available [place] 3 Fish Oil capsule 360 mg every day by oral route. active Not Available Not Available No t Available D-3-5 active Not Available Not Availa ble Not Available Acid Cad Specialist active Not Available Not Available Not Available ProAir HFA 90 mcg/actuati on aerosol inhaler 2 inhalatio ns as needed by inhalatio n route. active Not Available Not Available No t Available furosemide (bulk) 04/22 completed Not Available Not Available Not Available GaviLyte-G 236 gram-22.74 gram-6.74 gram-5.86 gram oral solution PLEASE SEE ATTACHED FOR DETAILED DIRECTION S 04/22 completed Not Available Not Available Not Available Multaq 400 mg tablet TAKE 1 [...] No t Available Eliquis 2.5 mg tablet 04/22 completed Not Available Not Available Not Available Spiriva Respimat 2.5 mcg/actuati on solution [...] Not Available Vitals Date Recorded Body height Provider Name an d Address Organization Details Last Updated DateTime 04/22/2025 180.34 cm JERICHO FERNANDEZ [place] - [facility] 04/22/2025 13:18:39 Date Recorded Body height Body mass index (BMI) Body weight Provider Name and Address Organization Details Last Updated DateTime 08/27/2024 180.34 cm 44.6 kg/m2 788268.56 g Karson Olvera [place] - [facility] 08/27/2024 15:39:12 Social History None recorded. Functional Status None recorded. Mental Status None recorded. Family History Nothing Reported. Medical History No medical history recorded. Past Encounters Encounter ID Performer Location Encounter Start Date Encounter Closed Date Diagnosis/Indication Diagnosis SNOMED-CT Code Diagnosis ICD10 Code Diagnosis Note [id number] YA HOLDEN MD [facility] [address] [address] 08/27/2024 15:15:20 08/27/2024 16:33:28 Lesion of skin of nose 2750036981 1368417 J34.89 Verruca vulgaris 3956761 3 B07.8 [id number] LILIANA MACHUCA PA-C [facility] [address] [address] 04/22/2025 13:16:24 04/22/2025 13:43:32 Verruca vulgaris 46521884 B07.8 Long-term current use of anticoagulant 111833902 Z79.01 Health Concerns Section Related Observation LastModified by Organization Detai ls LastModified Time None Recorded Concern Status LastModified by Organization Details LastModified Time None Recorded Advance Directives Directive None Recorded Payers Insurance Date Sequence Insurance Name Policy Number Policy Joyner Covered Member ID Joyner Member ID Guarantor Name 04/28/2025 1 JIAN-DWAYNE (PPO) [id number] Lissy aGrcia [id number] Mario Dolan Notes Date Note Type Note Provider [...] in self or family. YA LEE MD 100 [facility],[address], [address], [place] - [facility] 08/27/2024 16:55:32 04/22/2025 text/html 64-year-old male on Eliquis presents for reevaluation of columellar exophytic growth. He first noticed this 10 years ago, and it has since been removed 4-5 times. Pathology demonstrated verruca vulgaris. This was removed 6 months ago by Lydia Ricketts, and since quickly re-grew. Patient reports the location is bothersome and he would like to discuss long-term management. He is following up with dermatology for other concern. YA LEE MD [address] [place] [address],[place] [address], [place], [address], [place] - [facility] 04/22/2025 16:54:14
--- OUTSIDE RECORDS SUMMARY | 2025-06-07 15:11 | XMS_ITS | Patient Health Record ---
[facility] Address [address] [place] [address] Care Team Providers Care Engineering Clerk Name Role Phone Alea Hull MD Primary Care Provider Hector Brown Unavailable [phone] Allergies No Known Allergies Reason For Referral [...] 1 tablet Orally Once a day Active [place] 3 1000 MG 1 capsule Orally Onc [...] Coverage Start Date Coverage End Date [facility] All Others [address] [place] [address] [phone] [id number] Lissy Bill Spouse - patient is [...] leg surgery 01/12/24 Hospitalization History Reason Date(Month/Year) [facility] copd 10/2023 [facility] - [facility] 01/12/24
== END 2025-06-07 14:47 | disposition home or self-care (01) ==
PROVIDERS: PCP Internal Medicine; Visit Provider Hospitalist
DX: J44.1 Chronic obstructive pulmonary disease with (acute) exacerbation (principal); J96.11 Chronic respiratory failure with hypoxia; J96.12 Chronic respiratory failure with hypercapnia; Z86.711 Personal history of pulmonary embolism; G47.33 Obstructive sleep apnea (adult) (pediatric); R91.8 Other nonspecific abnormal finding of lung field; E66.2 Morbid (severe) obesity with alveolar hypoventilation; J96.21 Acute and chronic respiratory failure with hypoxia; I50.33 Acute on chronic diastolic (congestive) heart failure; I50.32 Chronic diastolic (congestive) heart failure; I50.9 Heart failure, unspecified
CPT/HCPCS: 99214

== ENCOUNTER 2025-06-15 10:01 | Outpatient (REF) | payer BC, SELFPAY ==
--- NOTE | ~2025-06-15 | XR_ITS ---
CLINICAL HISTORY: I50.9 - Heart failure, unspecified 2 view chest x-ray Comparison: None provided Findings: Complex right basilar consolidation. Small right pleural effusion also noted. Question pneumonia, please correlate. Left lung clear. Cardiomegaly. No acute bony abnormalities. Impression: Right basilar consolidation and pleural fluid Question pneumonia, please correlate This document has been electronically signed by: Ramakrishna Nettles MD on 06/15/2025 19:02:52
--- OUTSIDE RECORDS SUMMARY | 2025-06-15 10:36 | XMS_ITS | Patient Health Record ---
[facility] Address [address] [place] [address] Care Team Providers Care Online Services Manager Name Role Phone Alea Hull MD Primary Care Provider Hector Brown Unavailable [phone] Allergies No Known Allergies Reason For Referral [...] 1 tablet Orally Once a day Active [place] 3 1000 MG 1 capsule Orally Onc [...] Insured Coverage Start Date Coverage End Date [facility] All Others [address] [place] [address] [phone] [id number] Lissy Bill Spouse - patient is [...] leg surgery 01/12/24 Hospitalization History Reason Date(Month/Year) [facility] [place] [facility] - [facility] 01/12/24
--- OUTSIDE RECORDS SUMMARY | 2025-06-15 10:36 | XMS_ITS | Data Portability ---
Author Organization [place] - [facility], Allergy Address [address] [address] Care Team Providers Care Cnc Machine Setter Name Role Phone NICOLLE BLACK Referring Provider [phone] Assessment Encounter Date Assessment Date Assessment LastModified [...] lesion on columella. Recommend follow-up with his germ drier to discuss possible cryotherapy. Otherwise, patient can [...] Go To The Location Of Their Choice, [id number] 08:20:27 Referral None recorded. Procedures None recorded. [...] Address Organization Details Recorded Time Av vulgaris 77505251 Active 2023 RIVERA ROSA-C 100 [facility],[address], [place], [address], [facility] - [facility] 4 16:44:25 Papilloma of nasal vestibule 630061543 Active 2023 LYDIA RICKETTS PA-C 100 [facility],[address], [place], [address], [facility] - [facility] [place] 4 16:46:47 Lesion of skin of nose 82512605421145 103 Active 2023 LYDIA RICKETTS PA-C 100 [facility],[address], [place], [address], [facility] - [facility] [place] 4 16:47:08 Problem Notes None recorded. Procedures Surgical History Date Name Laterality Status Provider Name and Address Organization Details Recorded Time Excision skin completed LYDIA RICKETTS PA-C 100 [facility],[address], [address], [facility] - [facility] [place] 08/27/2024 16:43:51 Imaging Results None recorded. Procedure [...] Not Available Not Available No t Available [place] 3 Fish Oil capsule 360 mg every day by oral route. active Not Available Not Available No t Available D-3-5 active Not Available Not Availa ble Not Available Acid Blood Bank Business Manager active Not Available Not Available Not Available [...] FERNANDEZ [place] - [facility] 04/22/2025 13:18:39 Date Recorded Body height Body mass index (BMI) Body weight Provider Name and Address Organization Details Last Updated DateTime 08/27/2024 180.34 cm 44.6 kg/m2 621865.56 g Karson Olvera [place] - [facility] 08/27/2024 15:39:12 Social History None recorded. Functional Status None recorded. Mental Status None recorded. Family History Nothing Reported. Medical History No medical history recorded. Past Encounters Encounter ID Performer Location Encounter Start Date Encounter Closed Date Diagnosis/Indication Diagnosis SNOMED-CT Code Diagnosis ICD10 Code Diagnosis Note [id number] YA HOLDEN MD [facility] [address] [address] 08/27/2024 15:15:20 08/27/2024 16:33:28 Lesion of skin of nose 9315252701 9830512 J34.89 Verruca vulgaris 5738277 3 B07.8 [id number] LILIANA MACHUCA PA-C [facility] [address] [address] 04/22/2025 13:16:24 04/22/2025 13:43:32 Verruca vulgaris 60265445 B07.8 Long-term current use of anticoagulant 420909407 Z79.01 Health Concerns Section Related Observation LastModified by Organization Detai ls LastModified Time None Recorded Concern Status LastModified by Organization Details LastModified Time None Recorded Advance Directives Directive None Recorded Payers Insurance Date Sequence Insurance Name Policy Number Policy Joyner Covered Member ID Joyner Member ID Guarantor Name 04/28/2025 1 JIAN-DWAYNE (PPO) [id number] Lissy Garcia [id number] Mario Dolan Notes Date Note Type [...] self or family. YA LEE MD 100 [facility],[address], [address], [place] - [facility] 08/27/2024 16:55:32 04/22/2025 text/html 64-year-old male on [...] dermatology for other concern. YA LEE MD [address] [place] [address],[place] [address], [place], [address], [place] - [facility] 04/22/2025 16:54:14
[2025-06-15 13:43] LABS: MANUAL DIFF FLAG NO
[2025-06-15 13:47] LABS: Hematocrit 49.2 % (42.0-52.0); Hemoglobin 14.5 g/dl (14.0-18.0); Imm Gran Abs Auto 0.09 X10*3/uL (0.00-0.03); Imm Gran Pct Auto 0.8 % (0.0-0.4); Lymphocytes Absolute Auto 2.1 X10*3/uL (1.2-4.9); Mean Corpuscular HGB Conc 29.5 g/dl (31.0-36.0); Mean Corpuscular Hemoglobin 27.8 pg (27.0-33.0); Mean Corpuscular Volume 94.3 fL (80.0-98.0); NRBC Abs Auto 0.000 X10*3/uL (0.0-0.012); NRBC Pct Auto 0.0 /100WBC (0.0-0.2); Platelet Count 240 X10*3/uL (160-400); Red Blood Count 5.22 X10*6/uL (4.60-5.80); White Blood Count 11.0 X10*3/uL (4.8-10.8)
[2025-06-15 13:57] LABS: Anion Gap 13 (12-20); Blood Urea Nitrogen 17 mg/dL (9-16); Calcium 9.2 mg/dL (8.4-10.2); Carbon Dioxide 38 mmol/L (22-29); Chloride 97 mmol/L (96-108); Estimated Glomerular Filt Rate > 60; Potassium 5.3 mmol/L (3.3-5.1); Sodium 143 mmol/L (135-145)
[2025-06-15 14:21] LABS: Venous Blood Gas Refer to POC result
[2025-06-15 14:23] LABS: VBG HCO3 47 mmol/L (22-26); VBG O2 % Saturation 31.0 %
== END 2025-06-15 10:02 | disposition home or self-care (01) ==
LOC: HO.HMGCX 10:01
PROVIDERS: PCP Internal Medicine; Visit Provider Hospitalist
DX: I50.33 Acute on chronic diastolic (congestive) heart failure (principal); I48.0 Paroxysmal atrial fibrillation
CPT/HCPCS: 36415; 71046; 80048; 82785; 82803; 85025; 85652

== ENCOUNTER → 2025-06-15 10:15 | Outpatient (BNV) | payer BC, SELFPAY | PROVIDERS: PCP Internal Medicine; Visit Provider Radiology Diagnostic Radiology | DX: J90 Pleural effusion, not elsewhere classified (principal) | CPT/HCPCS: 71046 ==

== ENCOUNTER 2025-07-01 12:09 | Outpatient (REF) | payer BC, SELFPAY ==
--- OUTSIDE RECORDS SUMMARY | 2025-07-01 12:12 | XMS_ITS | Encounter Summary ---
Author Organization [facility] Address [address] [place] [address] Phone Care Team Providers Care Webmethods Consultant Name Role Phone Rachel Hidalgo MD Primary Care Provider + Encounter Details Date Type Department Care Team (Late st Contact Info) Description 08/02/2021 Procedure Pass [facility] DEPT [address] [place] [address] Social History Tobacco Use Types Packs/Day Years Used Date Smoking Tobacco: Former Cigarettes 1 30 1 978 - 2007 Smokeless Tobacco: Never Alcohol Use Standard Drinks/Week Comments Yes 2 (1 standard drink = 0.6 oz pur e alcohol) Sex and Gender Information Value Date Recorded Sex Assigned at Not on file Legal Sex Male 5:43 PM EST Gender Identity Not on file Sexual Orientation Not on file documented as of this encounter Plan of Treatment Not on file documented as of this encounter Visit Diagnoses Not on filedocumented in this encounter Care Teams Webmethods Consultant Relationship Specialty Start Date End Date Rachel Hidalgo MD [email or web address] PCP - General Family Medicine 05/19/19 documented as of this encounter Additional Source Comments The information contained in this document represents components of the legal health record. It is not the complete legal health record.[facility]
[2025-07-01 12:48] LABS: Anion Gap 14 (12-20); Blood Urea Nitrogen 20 mg/dL (9-16); Calcium 8.6 mg/dL (8.4-10.2); Carbon Dioxide 32 mmol/L (22-29); Chloride 99 mmol/L (96-108); Estimated Glomerular Filt Rate > 60; Potassium 4.1 mmol/L (3.3-5.1); Sodium 141 mmol/L (135-145)
[2025-07-01 12:48] LABS: VBG HCO3 36 mmol/L (22-26); VBG O2 % Saturation 70.0 %
[2025-07-01 14:49] LABS: Venous Blood Gas Refer to POC result
== END 2025-07-01 12:10 | disposition home or self-care (01) ==
LOC: HO.LAB 12:09
PROVIDERS: PCP Internal Medicine; Visit Provider Hospitalist
DX: J44.1 Chronic obstructive pulmonary disease with (acute) exacerbation (principal); J96.21 Acute and chronic respiratory failure with hypoxia
CPT/HCPCS: 36415; 80048; 82803

== ENCOUNTER 2025-09-09 14:38 | Outpatient (AMB) | payer BC, SELFPAY ==
[2025-09-09 14:41] VITALS: BP 154/70; PULSE 80; O2SAT 89; BMI 48.7
--- NOTE | 2025-09-09 14:41 | A.OFFVIS_ITS ---
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 The patient states his sob has been getting progressively worse over last 2 months. initially on exertion, now at rest. has been needing to increase his home o2 supplement. recent PFTs may 2023 showed severe obstruction with FEV1 - 21%. The patient typically responds well to prednisone. He started feeling better. During the hospitalization he did have an ABG demonstrating a chronic hypercarbic respiratory failure secondary to likely has advanced COPD. He does use a BiPAP or a noninvasive ventilator at home. Will try to get a download from his [employer] company, [employer]. In the meantime he is completing the prednisone taper. Will go ahead and optimize his respiratory therapy by switching over to Trelegy. She continues use the oxygen with good effect. He was participating in pulmonary rehabilitation when he was sent to the ER. He is going to try to get back to pulmonary rehabilitation at this time. If the patient is not better once he completes the prednisone and would like to restart his lower dose he will call for additional prednisone. 10/15/2023 the patient is here for hospital follow-up visit. Apparently he ended up developing an upper respiratory illness and subsequently worsening worsening respiratory symptoms. He was admitted to the [facility]. Viral swab positive for enterovirus. The patient also was noted to have a chest x-ray perihilar congestion consistent with mild heart failure. He was placed on diuretics. The patient was placed on prednisone. He continue using his BiPAP. He did have a blood gas in the hospital demonstrating chronic hypercarbic respiratory failure. He has been using his AVAP. [employer] is [employer]. Will request a download at this time and further adjust the AVAP accordingly. We did review his imaging studies demonstrating the mild heart failure. The patient understands that he will continue with a low-sodium diet. New continue with current respiratory therapy. 01/02/2024 the patient has a telehealth visit today. Recently he developed COVID-19. The patient does take Eliquis and also he is on antiarrhythmic agents. Therefore we placed him on Mulnopinivir. the patient completed a 5 day course any responded very well to it. His chest congestion is improved his breathing is also improved. Overall he is in recovery. He continues use the noninvasive ventilator at nighttime. He has been affecting beneficial. He does use it for more than 4 hours a night. Will plan to repeat his venous blood gas to assess his CO2 and make sure that is responding well to the noninvasive ventilator. In addition to that he continues use the oxygen. He did use the oxygen more often when was sick with COVID-19. Right now is closer to his baseline. The patient does have increased chest congestion so therefore will go ahead and start him on doxycycline case symptoms worsen. The patient should also have some prednisone available in case develops reactive airway disease after having COVID. At this point he can hold off unless his symptoms worsen as well. Will follow-up in 3-4 months and at that point will review his blood work. 05/31/2024 the patient is here for a pulmonary follow-up visit. Overall the patient has been doing well. He continues uses respiratory therapy with good effect. He has been working on weight loss. He is looking into also part icipating in the weight loss program. He did take down some information. The meantime he continues using noninvasive ventilator at nighttime. The astral has been affecting beneficial. He did have a repeat blood gas demonstrating his PaCO2 has gone down from 80 mmHg to now 57 mmHg which is excellent. He has been getting supplies readily from the [employer]. He had a last CT scan back in the winter of 2023 still demonstrating the masslike density consistent with developed the atelectasis. Has not changed so is likely to be a benign process. Will discuss further imaging study during the next visit. He continues on the anticoagulation with good effect. Otherwise patient is without any other concerns. 12/06/2024 the patient is here for a pulmonary follow-up visit. Overall the patient seems to be doing fair. He was doing better but then about 3 days ago he started developing worsening shortness of breath and hypoxia. He has been noticing that his oxygen pulse ox has been dipping down to the mid 80s. He had been in the hospital we did review his hospital stay. Actually did see him while he was there and adjusted his noninvasive ventilator while he was there. Seems that the setting some back to his previous ones though we need to increase the pressures. I am going to request access to air view if not send a prescription over to his [employer] company. In the meantime the patient has been having significant amount of weight gain. Likely volume overload at this time resulting in congestive heart failure and worsening hypoxia. He has Lasix 40 mg b.i.d.. Will go ahead and double that to 80 mg b.i.d. for 3 days. He is going to monitor closely his weight. If however his oxygen does not improve or if it worsens he is going to go to the ER for further evaluation. Currently I believe on 4 L and improved his pulse ox to the low 90s. He is going to keep it at 4 L for now. Again, if his symptoms worsen if his hypoxia worsens he needs to go the ER. It become back in 2 weeks so we can reassess. Hopefully we can adjust his astral and he can also make some dietary changes specially since he does take or consume significant amount of sodium in his drinks. 12/23/2024 the patient is here for a pulmonary follow-up visit. The patient is still struggling with his noninvasive ventilator. The pressures are not high enough. We did send a prescription to the [employer] but they have not adjusted as of yet. He did bring his machine in a did evaluated. Seems like he has to patient's settings P1 and P2 and therefore even though we had adjusted in the hospital he is using the different setting. Therefore I adjusted both. I have to reach out to [facility] so they can raise P 1. We did increase his minimum pressure to 10 from 5 increased his maximum pressure to 22 from 10. Also changed his auto EPAP to 8-10. The patient has respiratory rate was increased from 15-16. He did try the off any seem to tolerated okay. Breathing is better. His monitoring closely his weight and is taking his diuretics. He will go ahead and have blood work including a blood gas the coming days. Will adjust his noninvasive accordingly. 02/03/2025 The patient is here for a pulmonary follow up visit. The patient is doing better with the IVAPS, tolerating the pressures better. The therapy has been effective and beneficial. He also started using a POC, although, his oxygen requierements have been going up and the conserving device is not enough at times. He does increase to 5l/pulse with activity, but still drops to the mid 80's. We will continue to monitor, but may need to return to the gas tanks. He continues to use his respiratory therapy with good effect. He will undergo bloodwork foe his F/U and then consider repeating the PFTs and pulmonary rehab. However, right now his is helping his with a serious health condition. 05/03/2025 the patient is here for pulmonary follow-up visit. The patient had some issues with increased oxygen needs lately. He has been having to increase his pulse oxygen from 3 L to 4 L. Although the patient has had some dietary indiscretions and he has had increased weight gain. He also had surgery required anesthesia and likely also had fluid administered during the procedure therefore increasing his volume status. The patient did take 1 additional Lasix last week. I did encourage him to take additional Lasix for the next 3 days. The patient also continues his respiratory therapy. He continues uses noninvasive ventilator as prescribed. Recently had to be replaced. He did bring it in I did look at it seems to be doing okay and I decrease the alarm settings. The patient will continue to use it as prescribed. Right now no imaging studies are warranted. His last CT scan was back in October 2024 which we did personally reviewed demonstrating pulmonary edema. Will continue to work with the volume status at this time the definitely affects is gas exchange. Patient follow-up in 4 months if he has any issues prior to this he will call for an earlier assessment. 06/07/2025 the patient is here for pulmonary follow-up visit. He is still does not feel like his baseline. He continues use more oxygen than at baseline. The patient did call prior and he was placed on doxycycline prednisone. For worsening respiratory symptoms and cough. Initially he has had some relief but then it subsided. He was placed on another course. He has not seen any significant improvement ever since. He is still using more oxygen. He is using the portable oxygen concentrator. Although sometimes he has a hard time with a pulse. He is wondering about continuous flow. Recently he also started taking additional diuretics for lower extremity edema and increased weight gain. I do believe this is a very good option. As far as respiratory medications he is really optimize with the Trelegy inhaler and also has a nebulizer that he uses several times a day. I do believe that he will be a good candidate for Ohtuvayre based on the fact that he has been on some prednisone use. Currently on 10 mg hopefully can stop the taper in the next few days. He will continue with his respiratory therapy and continue with diuresis as tolerated. He continues uses noninvasive ventilator at nighttime with good effect. Does use it for more than 4 hours a night. Sometimes he also uses a as needed during the daytime. 09/09/2025 the patient is here for pulmonary follow-up visit. Overall the patient has been doing well. He did start the Ohtuvayre nebulizer therapy twice a day in his been affecting beneficial. He continues on the Trelegy. He also continues on his oxygen. He has noticed some increased shortness of breath with activity. He is also more dependent on his oxygen. Although he has gained weight and he has also has not taking his diuretics regularly. He is going to take additional diuretics as weekend. He has gained weight in his lower extremities more swollen. He has been using his noninvasive ventilator at nighttime. He has been affecting beneficial. He is also using it when napping. He is waking up rested. I did review his download his AHI is down to 3.5. His use it as great as he is also using it during naps during the daytime. He is going to go ahead and get blood work next week. We are going to recheck his blood gas since his last 1 demonstrated an acute on chronic acidosis. He also continues on Daliresp. He has had significant amount of weight gain. The patient would benefit from a GLP 1 inhibitor to help him with weight loss since his breathing in his other comorbidities will improve with weight loss. Will follow-up in 3-4 months if any issues arise she can always call for further recommendations. [facility] Medical History Acute on chronic diastolic (congestive) heart failure Hypoventilation associated with obesity syndrome COPD exacerbation Hx of atrial flutter Obesity DEVIN (obstructive sleep apnea) COPD (chronic obstructive pulmonary disease) Chronic diastolic heart failure Acute exacerbation of chronic obstructive airways disease Hyperthyroidism Venous insufficiency of both lower extremities Chronic respiratory failure Hx pulmonary embolism PAF (paroxysmal atrial fibrillation) Lung mass Surgical History History of esophagogastroduodenoscopy (EGD) H/O cardiac radiofrequency ablation Family History Father Bone cancer Mother COPD (chronic obstructive pulmonary disease) Social History Household Members: Spouse Household Members Other:: Housing: House Do you presently have visiting nurse or other home services: No Alcohol intake: current Alcohol intake frequency: holidays/special occasions only Patient Tobacco Use Status: Former Tobacco user Tobacco use type: Cigarette Cigarette Packs Per Day: 1.5 Cigarettes Per Day: 30.0 Years Smoked: 25 e-Cigarette/Vaping Use: Never Used Second Hand Smoke Exposure: No Advance Directives Date on File: 07/14/23 service: No Current occupational status: employed Cognitive needs: No Hearing needs: No Vision needs: Yes Review of Systems Const Denies fever(s) and Reports weight loss Eyes Denies exophthalmos Card Denies chest pain and Reports dyspnea on exertion Resp Reports chest congestion, Reports cough, Reports dyspnea on exertion and Denies wheezing GI Reports no additional complaints Musc Reports no additional complaints Skin/Breast Denies rash Neuro Reports no additional complaints Venu/Lymph Denies lymphadenopathy Aller/Immun Denies wheezing Physical Exam Vital Signs: Last Vital Signs Pulse 80 09/09/25 14:41 BP 154/70 H 09/09/25 14:41 Pulse Ox 89 L 09/09/25 14:41 Oxygen Delivery Method Nasal Cannula 09/09/25 14:41 Oxygen Flow Rate 2 09/09/25 14:41 BMI result Body Mass Index 48.7 Last Vital Signs Temp 97.6 F 10/23/24 12:00 Pulse 71 10/23/24 12:00 Resp 20 10/23/24 12:00 BP 117/70 10/23/24 12:00 Pulse Ox 90 L 10/23/24 12:00 O2 Del Method BiPAP 10/23/24 12:00 O2 Flow Rate 4 10/23/24 08:00 Oxygen Flow Rate 2 10/18/24 12:52 BMI result Body Mass Index 46.6 Const General: cooperative, comfortable, no acute distress, alert and awake Nutritional Appearance: obese morbidly obese Orientation/consciousness: patient oriented x3 Limitations: no limitations HEENT Head: Yes normocephalic and Yes atraumatic Neck Neck: Yes trachea midline, Yes supple and Yes no JVD Chest Chest palpation & inspection: normal inspection of the chest Resp Effort & Inspection: normal respiratory effort Auscultation: diminished lung sounds Cardio Jugular venous distension: no JVD Palpation: normal PMI Rate: regular rate Rhythm: regular rhythm Heart sounds: S1 normal heart sound present, S2 normal heart sound present, no click, no gallops and no murmurs GI Auscultation: normal bowel sounds Skin General skin exam: no rashes or lesions noted Neuro General: patient oriented x3 and no focal motor deficits Extrem General: Yes no clubbing, cyanosis or edema Psych Appearance: grossly normal Assessment & Plan Assessment & Plan (1) COPD (chronic obstructive pulmonary disease): Comment: Severe on supplemental O2 and BiPAP, follow-up with pulmonology Code(s): J44.9 - Chronic obstructive pulmonary disease, unspecified Category: Medical Qualifiers: COPD type: COPD with acute exacerbation Qualified Code(s): J44.1 - Chronic obstructive pulmonary disease with (acute) exacerbation (2) Chronic respiratory failure: Comment: on supplemental O2 PRN Code(s): J96.10 - Chronic respiratory failure, unspecified whether with hypoxia or hypercapnia Category: Medical Qualifiers: Respiratory failure complication: hypoxia and hypercapnia Qualified Code(s): J96.11 - Chronic respiratory failure with hypoxia; J96.12 - Chronic respiratory failure with hypercapnia (3) Hx pulmonary embolism: Comment: 2013, on lifetime anticoagulation Code(s): Z86.711 - Personal history of pulmonary embolism Category: Medical (4) Sleep apnea: Code(s): G47.30 - Sleep apnea, unspecified Category: Medical Qualifiers: Sleep apnea type: obstructive Qualified Code(s): G47.33 - Obstructive sleep apnea (adult) (pediatric) (5) Lung mass: Code(s): R91.8 - Other nonspecific abnormal finding of lung field Category: Medical (6) Hypoventilation associated with obesity syndrome: Code(s): E66.2 - Morbid (severe) obesity with alveolar hypoventilation Category: Medical (7) Acute and chronic respiratory failure: Code(s): J96.20 - Acute and chronic respiratory failure, unspecified whether with hypoxia or hypercapnia Category: Medical Qualifiers: Respiratory failure complication: hypoxia Qualified Code(s): J96.21 - Acute and chronic respiratory failure with hypoxia (8) Acute on chronic diastolic (congestive) heart failure: Comment: Echocardiogram 07/23 normal EF, nl RV systolic function Code(s): I50.33 - Acute on chronic diastolic (congestive) heart failure Category: Medical (9) Chronic diastolic heart failure: Comment: Echo 07/23 nl EF, F/U [facility], heart failure with preserved ejection fraction Code(s): I50.32 - Chronic diastolic (congestive) heart failure Category: Medical (10) CHF (congestive heart failure): Code(s): I50.9 - Heart failure, unspecified Category: Medical Qualifiers: Heart failure chronicity: unspecified Heart failure type: unspecified Qualified Code(s): I50.9 - Heart failure, unspecified Plan continue Trelegy Continue Daliresp REY as needed continue Ohtuvayre nebs BID continue oxygen supplementation, POC 3- 5L/pulse to keep pox>87%. Consider going back on oxygen tanks due to his high oxygen need Astral AVAPS at night, adjusted min PS 10;maxPS22, aEPAP 8-10, RR17 continue Eliquis diureses as tolerated, will take aditional lasix x 3-5days low Na diet lung mass likely rounded atelectasis associated with a calcified pleural plaque bloodwok, VBG, CXR next week F/U 3-4 months Orders: Orders Basic Metabolic Panel 09/09/25 J44.1 - Chronic obstructive pulmonary disease with (acute) exacerbation Venous Blood Gas 09/09/25 J44.1 - Chronic obstructive pulmonary disease with (acute) exacerbation Complete Blood Count Auto Diff 09/09/25 J44.1 - Chronic obstructive pulmonary disease with (acute) exacerbation Coding Level of Care Code Est Pt Level 4 (15093) Complex EM visit Add On G2211 Diagnoses Chronic obstructive pulmonary disease with acute exacerbation J44.1 COPD type: COPD with acute exacerbation Chronic respiratory failure with hypoxia and hypercapnia J96.11; J96.12 Respiratory failure complication: hypoxia and hypercapnia Hx pulmonary embolism Z86.711 Obstructive sleep apnea syndrome G47.33 Sleep apnea type: obstructive Lung mass R91.8 Hypoventilation associated with obesity syndrome E66.2 Acute on chronic respiratory failure with hypoxia J96.21 Respiratory failure complication: hypoxia Acute on chronic diastolic (congestive) heart failure I50.33 Chronic diastolic heart failure I50.32 Congestive heart failure, unspecified HF chronicity, unspecified heart failure type I50.9 Heart failure chronicity: unspecified Heart failure type: unspecified Time Spent (min) 17
== END 2025-09-09 15:14 | disposition home or self-care (01) ==
PROVIDERS: PCP Internal Medicine; Visit Provider Hospitalist
DX: J44.1 Chronic obstructive pulmonary disease with (acute) exacerbation (principal); J96.11 Chronic respiratory failure with hypoxia; J96.12 Chronic respiratory failure with hypercapnia; Z86.711 Personal history of pulmonary embolism; G47.33 Obstructive sleep apnea (adult) (pediatric); R91.8 Other nonspecific abnormal finding of lung field; E66.2 Morbid (severe) obesity with alveolar hypoventilation; J96.21 Acute and chronic respiratory failure with hypoxia; I50.33 Acute on chronic diastolic (congestive) heart failure; I50.32 Chronic diastolic (congestive) heart failure; I50.9 Heart failure, unspecified
CPT/HCPCS: 99214

== ENCOUNTER 2025-09-14 13:28 | Outpatient (REF) | payer BC, SELFPAY ==
[2025-09-14 13:39] LABS: MANUAL DIFF FLAG NO
[2025-09-14 13:44] LABS: Venous Blood Gas Refer to POC result
[2025-09-14 13:45] LABS: Hematocrit 51.6 % (42.0-52.0); Hemoglobin 15.3 g/dl (14.0-18.0); Imm Gran Abs Auto 0.05 X10*3/uL (0.00-0.03); Imm Gran Pct Auto 0.4 % (0.0-0.4); Lymphocytes Absolute Auto 2.3 X10*3/uL (1.2-4.9); Mean Corpuscular HGB Conc 29.7 g/dl (31.0-36.0); Mean Corpuscular Hemoglobin 27.7 pg (27.0-33.0); Mean Corpuscular Volume 93.3 fL (80.0-98.0); NRBC Abs Auto 0.000 X10*3/uL (0.0-0.012); NRBC Pct Auto 0.0 /100WBC (0.0-0.2); Platelet Count 217 X10*3/uL (160-400); Red Blood Count 5.53 X10*6/uL (4.60-5.80); White Blood Count 11.8 X10*3/uL (4.8-10.8)
[2025-09-14 13:47] LABS: VBG HCO3 37 mmol/L (22-26); VBG O2 % Saturation 92.0 %
[2025-09-14 14:16] LABS: Anion Gap 13 (12-20); Blood Urea Nitrogen 16 mg/dL (9-16); Calcium 8.9 mg/dL (8.4-10.2); Carbon Dioxide 33 mmol/L (22-29); Chloride 99 mmol/L (96-108); Estimated Glomerular Filt Rate > 60; Potassium 4.4 mmol/L (3.3-5.1); Sodium 141 mmol/L (135-145)
--- OUTSIDE RECORDS SUMMARY | 2025-09-14 17:08 | XMS_ITS | Data Portability ---
Author Organization [place] - [facility], Allergy Address [address] [address] Care Team Providers Care Trash Hauler Name Role Phone NICOLLE BLACK Referring Provider Assessment Encounter Date Assessment Date [...] needed. Patient was also examined by Lydia Mccord PA-C, who performed the procedure, and Liliana Machuca PA-C, who assisted ronit Not available 08/27/2024 16:54:18 04/22/2025 04/22/2025 64-year-old male on Eliquis presents for reevaluation of columellar exophytic growth. This has been a recurrent issue for 10 years s/p excision 4-5 times. Pathology demonstrated verruca vulgaris. Exam demonstrates recurrence of 1.5 x 1.5 warty lesion on columella. Recommend follow-up with his filling hauler to discuss possible cryotherapy. Otherwise, patient can [...] Go To The Location Of Their Choice, [id number] 08:20:27 Referral None recorded. Procedures None recorded. 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 Procedures Surgical History Date Name Laterality Status Provider Name and Address Organization Details Recorded Time 4 Excision skin completed Lydia Mccord [facility] 08/27/2024 16:43:51 Imaging Results None recorded. Procedure [...] Not Available Not Available No t Available Holland 3 Fish Oil capsule 360 mg every day by oral route. active Not Available Not Available No t Available D-3-5 active Not Available Not Availa ble Not Available Acid Senior Commissions Analyst active Not Available Not Available Not Available [...] Last Updated DateTime 04/22/2025 180.34 cm JERICHO REBECCA [place] - [facility] 04/22/2025 13:18:39 Date Recorded Body height Body mass index (BMI) Body weight Provider Name and Address Organization Details Last Updated DateTime 08/27/2024 180.34 cm 44.6 kg/m2 764049.56 g Karson Olvera [place] - [facility] 08/27/2024 15:39:12 Social History None recorded. Functional Status None recorded. Mental Status None recorded. Family History Nothing Reported. Medical History No medical history recorded. Past Encounters Encounter ID Performer Location Encounter Start Date Encounter Closed Date Diagnosis/Indication Diagnosis SNOMED-CT Code Diagnosis ICD10 Code Diagnosis IMO Codes Diagnosis Note [id number] YA HOLDEN MD [facility] [address] [address] 08/27/2024 15:15:20 08/27/2024 16:33:28 Lesion of skin of nose 2215653780 6986605 J34.89 Verruca vulgaris 4732806 3 B07.8 [id number] LILIANA MACHUCA PA-C [facility] [address] [address] 04/22/2025 13:16:24 04/22/2025 13:43:32 Verruca vulgaris 00674797 B07.8 Long-term current use of anticoagulant 870523795 Z79.01 071049 Health Concerns Section Related Observation LastModified by Organization Detai ls LastModified Time None Recorded Concern Status LastModified by Organization Details LastModified Time None Recorded Advance Directives Directive None Recorded Payers Insurance Date Sequence Insurance Name Policy Number Policy Joyner Covered Member ID Joyner Member ID Guarantor Name 04/28/2025 1 [facility] [id number] Lissy Garcia [id number] Mario Dolan Notes Date Note Type Note Provider Name and Address Organization Details Recorded Time 08/27/2024 text/html ROS as noted in the HPI 63 year old male on Eliquis therapy [...] self or family. YA LEE MD [address], [address], [facility] - [facility] 08/27/2024 16:55:32 04/22/2025 text/html ROS as noted in the HPI 64-year-old male on Eliquis presents for reevaluation of columellar exophytic growth. He first noticed this 10 years ago, and it has since been removed 4-5 times. Pathology demonstrated verruca vulgaris. This was removed 6 months ago by Lydia Mccord, and since quickly re-grew. Patient reports the location is bothersome and he would like to discuss long-term management. He is following up with dermatology for other concern. YA LEE MD [address] [place] [address], [id number], [facility] - [facility] 04/22/2025 16:54:14
--- OUTSIDE RECORDS SUMMARY | 2025-09-14 17:08 | XMS_ITS | Encounter Summary ---
Author Organization [facility] Address [address] [place] [phone] Phone Care Team Providers Care Cat Breeder Name Role Phone Rachel Hidalgo MD Primary Care Provider + Encounter Details Date Type Department Care Team (Late st Contact Info) Description 08/02/2021 Procedure Pass [facility] DEPT [address] [place] [address] Social History Tobacco Use Types Packs/Day Years [...] on filedocumented in this encounter Care Teams Cat Breeder Relationship Specialty Start Date End Date Rachel Hidalgo MD [email or web address] PCP - General Family Medicine 05/19/19 documented as of this encounter Additional Source Comments The information contained in this document represents components of the legal health record. It is not the complete legal health record.[facility]
--- OUTSIDE RECORDS SUMMARY | 2025-09-14 17:08 | XMS_ITS | Patient Health Record ---
[facility] Address [address] [place] [address] Care Team Providers Care Management Department Chair Name Role Phone Alea Hull MD Primary Care Provider Unavaila Hector Pham Unavailable [phone] Allergies No Known Allergies Reason For Referral [...] 1 tablet Orally Once a day Active Zanoni 3 1000 MG 1 capsule Orally Onc [...] Insured Coverage Start Date Coverage End Date [facility] All Others [address] [place] [address] [phone] [id number] Lissy Bill Spouse - patient is [...] leg surgery 01/12/24 Hospitalization History Reason Date(Month/Year) [facility] [place] cop[place] 10/2023 [facility] - fell 01/12/24
== END 2025-09-14 13:29 | disposition home or self-care (01) ==
LOC: HO.LAB 13:28
PROVIDERS: PCP Internal Medicine; Visit Provider Hospitalist
DX: J96.21 Acute and chronic respiratory failure with hypoxia (principal); J44.1 Chronic obstructive pulmonary disease with (acute) exacerbation
CPT/HCPCS: 36415; 80048; 82803; 85025

== ENCOUNTER 2025-09-22 10:07 | Outpatient (AMB) | payer BC, SELFPAY ==
[2025-09-22 10:15] VITALS: BP 134/66; PULSE 77; RESP 19; TEMP 37; O2SAT 88; BMI 48.7
--- NOTE | 2025-09-22 10:15 | A.OFFPC_ITS ---
Vital Signs 09/22/25 10:15 Height 5 ft 11 in Weight 349 lb BMI 48.7 BP 134/66 Blood Pressure Location Rt brachial Position Sitting Respiration 19 Pulse 77 Pulse Source Pulse Oximeter Temp 98.6 F Temp Source Oral Pulse Oximetry (%) 88 L Oxygen Delivery Method Nasal Cannula Intake Visit Reasons: Annual PE Intake Note: Pt is here today for PE. Allergies No Known Allergies Allergy (Verified 09/22/25 10:16) Medication List - Last Reconciled 09/22/25 by Alea Hull MD acetaminophen 1,000 mg PO Q6H PRN apixaban (Eliquis) 5 mg PO BID cholecalciferol (vitamin D3) 25 mcg PO BEDTIME compr.stocking,knee,long,large As directed CPAP (CPAP Machine/Device) As directed diltiazem HCl ER 240 mg PO BEDTIME dronedarone (Multaq) 400 mg PO BID ensifentrine (Ohtuvayre) inhalation voclephyuht-qhczrgzzp-uexdvhqv 200-62.5-25 mcg (Trelegy Ellipta) 1 inh inhalation DAILY 90 days furosemide 40 mg PO BID ipratropium-albuterol 20-100 mcg/actuation (Combivent Respimat) 1 puff inhalation QID 30 days methimazole 2.5 mg (1/2 x 5 mg) PO BEDTIME metoprolol succinate ER 100 mg PO BEDTIME multivitamin 1 tab PO BEDTIME nebulizers As directed omeprazole magnesium 20 mg PO DAILY@0630 Oxygen Home Use As directed roflumilast 500 mcg PO BEDTIME thiamine HCl (vitamin B1) 500 mg PO BEDTIME vitamin E 268 mg PO BEDTIME Zepbound (tirzepatide (weight loss)) 2.5 mg (0.5 mL) subcut QWEEK NS Tobacco use date assessed: 09/22/25 Dental Screening Dental Screen Date: 09/22/25 Did you have a dental visit in the last 12 months?: Yes Did you have a dental problem in the last 6 months where you did not have access to dental care?: No Was dental information given to patient?: Patient has dentist HPI Annual PE HPI Details Pt presents for PE. He has been decreasing caloric intake increasing physical activity for the last 6 months unsuccessfully trying to lose weight. Patient is morbidly obese with advanced lung disease requiring 24 hour supplemental O2 secondary to his obesity and COPD. He has severe sleep apnea and has been using a CPAP regularly. 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 [facility] Medical History (Updated 09/22/25 @ 11:27 by Alea Hull MD) Trigger finger of right hand Acute on chronic diastolic (congestive) heart failure Hypoventilation associated with obesity syndrome COPD exacerbation Hx of atrial flutter Obesity DEVIN (obstructive sleep apnea) COPD (chronic obstructive pulmonary disease) Acute exacerbation of chronic obstructive airways disease Hyperthyroidism Venous insufficiency of both lower extremities Chronic respiratory failure Hx pulmonary embolism Lung mass Surgical History (Updated 09/22/25 @ 11:26 by Alea Hull MD) Hx of colonoscopy History of esophagogastroduodenoscopy (EGD) H/O cardiac radiofrequency ablation Family History Father Bone cancer Mother COPD (chronic obstructive pulmonary disease) Social History Household Members: Spouse Household Members Other:: Housing: House Do you presently have visiting nurse or other home services: No Alcohol intake: current Alcohol intake frequency: holidays/special occasions only Patient Tobacco Use Status: Former Tobacco user Tobacco use type: Cigarette Cigarette Packs Per Day: 1.5 Cigarettes Per Day: 30.0 Years Smoked: 25 e-Cigarette/Vaping Use: Never Used Second Hand Smoke Exposure: No Advance Directives Date on File: 07/14/23 service: No Current occupational status: employed Cognitive needs: No Hearing needs: No Vision needs: Yes Questionnaire PHQ-9 Over the last 2 weeks, how often have you been bothered by any of the following problems? 1. Little interest or pleasure in doing things: not at all 2. Feeling down, depressed, or hopeless: not at all 3. Trouble falling or staying asleep, or sleeping too much: several days 4. Feeling tired or having little energy: not at all 5. Poor appetite or overeating: not at all 6. Feeling bad about yourself - or that you are a failure or have let yourself or your family down: not at all 7. Trouble concentrating on things, such as reading the newspaper or watching television: not at all 8. Moving or speaking so slowly that other people could have noticed. Or the opposite - being so fidgety or restless that you have been moving around a lot more than usual: not at all 9. Thoughts that you would be better off or of hurting yourself in some way: not at all Total score: 1 Depression Screening Interpretation: Negative Depression Screening Done: Yes 35827 - PHQ-9 Billing: Yes Source: Developed by Drs. Tre Maya, Kay Win, Hoang Bethea and colleagues, with an educational padmaja from [employer]. Thrive Questionnaire Date Thrive assessed: 09/06/24 I am a: Patient What is your living situation today?: I have a steady place to live Within the past 12 months, did the food you bought not last and you didn't have the money to get more?: Never true Within the past 12 months, did you worry whether your food would run out before you got money to buy more?: Never true Do you have trouble paying for medicines?: No Do you have trouble getting transportation to medical appointments?: No Do you have trouble paying your heating and electricity bill?: No Do you have trouble taking care of your child, family member or friend?: No Do you have trouble with day-to-day activities such as bathing, preparing meals, shopping, managing finances, etc.?: No Are you currently unemployed and looking for a job?: No Are you interested in more education?: No Please select the resources that you would like help with: None Currently or been in a relationship where the following occur: No concerns reported THRIVE Score: 0 AUDIT C Alcohol Use Questionnaire (AUDIT-C) 1. How often do you have a drink containing alcohol?: 2-4 times a month 2. How many drinks containing alcohol do you have on a typical day when you are drinking?: 1 or 2 3. How often do you have six or more drinks on one occasion?: Never Total Score: 2 WILEY-7 AMB Questionnaire WILEY-7 Date WILEY - 7 assessed: 09/22/25 Feeling nervous, anxious, or on edge: 0 = Not at all Not being able to stop or control worryin = Not at all Worrying too much about different things: 0 = Not at all Trouble relaxin = Not at all Being so restless that it is hard to sit still: 0 = Not at all Becoming easily annoyed or irritable: 0 = Not at all Feeling afraid as if something awful might happen: 0 = Not at all Total WILEY-7 score (0-4 normal; 5-9 mild; 10-14 moderate; 15-21 severe): 0 Source: Developed by Drs. Tre Maya, Kay Win, Hoang Bethea and colleagues, with an educational padmaja from [employer]. WILEY-7 Assessment Billing WILEY-7 Assessment Tool: WILEY-7 Assessment 54539 Review of Systems Const All systems reviewed & are unremarkable except as noted in HPI and below Eyes Reports no additional complaints ENT Reports no additional complaints Card Reports no additional complaints Resp Reports no additional complaints GI Reports no additional complaints Reports no additional complaints Physical exam (Primary Care) Vital Signs: Last Vital Signs Temp 98.6 F 09/22/25 10:15 Pulse 77 09/22/25 10:15 Resp 19 09/22/25 10:15 BP 134/66 09/22/25 10:15 Pulse Ox 88 L 09/22/25 10:15 Oxygen Delivery Method Nasal Cannula 09/22/25 10:15 BMI result Body Mass Index 48.7 Tobacco/Smoking Status: Tobacco use Status Tobacco use date assessed 09/22/25 09/22/25 10:16 Patient Tobacco Use Status Former Tobacco user 09/22/25 10:16 Tobacco use type Cigarette 09/22/25 10:16 e-Cigarette/Vaping Use Never Used 09/22/25 10:16 PHQ-9: PHQ-9 Score PHQ-9: Total score 1 09/22/25 10:24 Depression Screening Interpretation: Negative Thrive Assessment: Date of Thrive Assessment Date Thrive assessed 09/06/24 09/22/25 10:16 Currently or been in a relationship where the following occur: No concerns reported Const General: no acute distress HENMT Head: Yes normal to inspection Ears: TM's normal bilaterally Mouth: Normal oral and palatal mucosa present Neck Neck: Yes no lymphadenopathy and Yes supple Resp Effort & Inspection: normal respiratory effort Auscultation: diminished lung sounds Cardio Rhythm: regular rhythm Heart sounds: S1 normal heart sound present and S2 normal heart sound present GI Inspection: Yes normal to inspection Palpation (GI): Soft to palpation Percussion: Yes normal to percussion Auscultation: normal bowel sounds Extrem General: Yes no clubbing, cyanosis or edema Coding Level of Care Code Est Pt Prev Care 40-64y(82329) Diagnoses A-fib I48.91 Acute on chronic diastolic (congestive) heart failure I50.33 Morbid obesity E66.01 Hx of colonoscopy Z98.890 Hyperthyroidism E05.90 Hypoventilation associated with obesity syndrome E66.2 Chronic obstructive pulmonary disease with acute exacerbation J44.1 COPD type: COPD with acute exacerbation Additional Codes WILEY-7 Assessment Billing - WILEY-7 Assessment Tool: WILEY-7 Assessment 97683 ([id number]) PHQ-9 - 31770 - PHQ-9 Billing: Yes ([id number]) Assessment & Plan Assessment & Plan (1) A-fib: Comment: Echo 07/2022 [facility] [place] [facility] [place] EF, LVH, nl valves , pul HTN (on previous echo) Code(s): I48.91 - Unspecified atrial fibrillation Category: Medical Plan: Patient is on Multaq and diltiazem and anticoagulated on Eliquis follow-up with Cardiology (2) Acute on chronic diastolic (congestive) heart failure: Comment: Echocardiogram 07/23 normal EF, nl RV systolic function Code(s): I50.33 - Acute on chronic diastolic (congestive) heart failure Category: Medical Plan: Continue current medications follow-up with Cardiology (3) Morbid obesity: Code(s): E66.01 - Morbid (severe) obesity due to excess calories Category: Medical Plan: Decreasing caloric intake increasing physical activity discussed with the patient. he will try Zepbound 2.5 mg weekly for the 1st month then increase the dose as tolerated, patient will follow-up in 2 months. Side effects discussed with the patient (4) Hx of colonoscopy: Comment: 2019 [facility] patient will get report, 03/2025 , 3 polyps TA, repeat 3 yrs Code(s): Z98.890 - Other specified postprocedural states Category: Surgical Plan: f/u with GI (5) Hyperthyroidism: Code(s): E05.90 - Thyrotoxicosis, unspecified without thyrotoxic crisis or storm Category: Medical Plan: Check TSH and adjust methimazole level discontinue completely, patient has been taking a half of 5 mg tablet (6) Hypoventilation associated with obesity syndrome: Code(s): E66.2 - Morbid (severe) obesity with alveolar hypoventilation Category: Medical Plan: Follow-up with pulmonology, continue supplemental O2 and BiPAP (7) COPD (chronic obstructive pulmonary disease): Comment: Severe on supplemental O2 and BiPAP, follow-up with pulmonology Code(s): J44.9 - Chronic obstructive pulmonary disease, unspecified Category: Medical Qualifiers: COPD type: COPD with acute exacerbation Qualified Code(s): J44.1 - Chronic obstructive pulmonary disease with (acute) exacerbation Plan: Continue inhalers and supplemental O2 Orders: Orders TSH reflex Free T4 Today E66.01 - Morbid (severe) obesity due to excess calories, I10 - Essential (primary) hypertension, I48.91 - Unspecified atrial fibrillation, I50.33 - Acute on chronic diastolic (congestive) heart failure Lipid Panel Today E66.01 - Morbid (severe) obesity due to excess calories, I10 - Essential (primary) hypertension, I48.91 - Unspecified atrial fibrillation, I50.33 - Acute on chronic diastolic (congestive) heart failure Vitamin D 25-OH Total Today E66.01 - Morbid (severe) obesity due to excess calories, I10 - Essential (primary) hypertension, I48.91 - Unspecified atrial fibrillation, I50.33 - Acute on chronic diastolic (congestive) heart failure Vitamin B1 Today E66.01 - Morbid (severe) obesity due to excess calories, I10 - Essential (primary) hypertension, I48.91 - Unspecified atrial fibrillation, I50.33 - Acute on chronic diastolic (congestive) heart failure Comprehensive [place]. Panel Fast Today E66.01 - Morbid (severe) obesity due to excess calories, I10 - Essential (primary) hypertension, I48.91 - Unspecified atrial fibrillation, I50.33 - Acute on chronic diastolic (congestive) heart failure Vitamin B12 and Folate Today E66.01 - Morbid (severe) obesity due to excess calories, I10 - Essential (primary) hypertension, I48.91 - Unspecified atrial fibrillation, I50.33 - Acute on chronic diastolic (congestive) heart failure Hemoglobin A1c Today E66.01 - Morbid (severe) obesity due to excess calories, I10 - Essential (primary) hypertension, I48.91 - Unspecified atrial fibrillation, I50.33 - Acute on chronic diastolic (congestive) heart failure Referrals Hand Surgery Referral M65.30 - Trigger finger, unspecified finger Medications: New Zepbound (tirzepatide (weight loss)) 2.5 mg (0.5 mL) subcut QWEEK 2 mL 0RF NS
--- OUTSIDE RECORDS SUMMARY | 2025-09-22 11:55 | XMS_ITS | Data Portability ---
Author Organization [place] [facility], Allergy Address [address] [address] Care Team Providers Care Ortho/Prosthetic Aide Name Role Phone NICOLLE BLACK Referring Provider [...] lesion on columella. Recommend follow-up with his director of social work to discuss possible cryotherapy. Otherwise, patient can [...] Go To The Location Of Their Choice, [phone] 08:20:27 Referral None recorded. 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 Procedures Surgical History Date Name Laterality Status Provider Name and Address Organization Details Recorded Time 4 Excision skin completed Lydia Mccord [facility] 08/27/2024 16:43:51 Imaging Results None recorded. [...] Not Available Not Available No t Available [place] 3 Fish Oil capsule 360 mg every day by oral route. active Not Available Not Available No t Available D-3-5 active Not Available Not Availa ble Not Available Acid Accordion Maker active Not Available Not Available Not Available [...] [place] [facility] 04/22/2025 13:18:39 Date Recorded Body height Body mass index (BMI) Body weight Provider Name and Address Organization Details Last Updated DateTime 08/27/2024 180.34 cm 44.6 kg/m2 069275.56 g Karson Olvera [place] - [facility] 08/27/2024 15:39:12 Social History None recorded. Functional Status None recorded. Mental Status None recorded. Family History Nothing Reported. Medical History No medical history recorded. Past Encounters Encounter ID Performer Location Encounter Start Date Encounter Closed Date Diagnosis/Indication Diagnosis SNOMED-CT Code Diagnosis ICD10 Code Diagnosis IMO Codes Diagnosis Note [id number] YA HOLDEN MD [facility] [address] [address] 08/27/2024 15:15:20 08/27/2024 16:33:28 Lesion of skin of nose 1312919047 6898581 J34.89 Verruca vulgaris 3025851 3 B07.8 [id number] LILIANA MACHUCA PA-C [facility] [address] [address] 04/22/2025 13:16:24 04/22/2025 13:43:32 Verruca vulgaris 45456003 B07.8 Long-term current use of anticoagulant 174017113 Z79.01 673189 Health Concerns Section Related Observation LastModified by Organization Detai ls LastModified Time None Recorded Concern Status LastModified by Organization Details LastModified Time None Recorded Advance Directives Directive None Recorded Payers Insurance Date Sequence Insurance Name Policy Number Policy Joyner Covered Member ID Joyner Member ID Guarantor Name 04/28/2025 1 [facility] [id number] Lissy Garcia [id number] Mario Dolan Notes Date Note Type [...] self or family. YA LEE MD [address], [address], [facility] - [facility] 08/27/2024 16:55:32 04/22/2025 text/html ROS as [...] dermatology for other concern. YA LEE MD [address] [place] [address], [phone], [facility] - [facility] 04/22/2025 16:54:14
== END 2025-09-22 10:47 | disposition home or self-care (01) ==
LOC: HO.HMCC 10:07
PROVIDERS: PCP Internal Medicine; Visit Provider Internal Medicine
DX: Z00.00 Encounter for general adult medical examination without abnormal findings (principal); I48.91 Unspecified atrial fibrillation; I50.33 Acute on chronic diastolic (congestive) heart failure; E66.01 Morbid (severe) obesity due to excess calories; E66.2 Morbid (severe) obesity with alveolar hypoventilation; J44.1 Chronic obstructive pulmonary disease with (acute) exacerbation; Z68.42 Body mass index [BMI] 45.0-49.9, adult; Z98.890 Other specified postprocedural states; E05.90 Thyrotoxicosis, unspecified without thyrotoxic crisis or storm

== ENCOUNTER → 2025-09-22 10:07 | Outpatient (BNVA) | payer BC, SELFPAY | PROVIDERS: PCP Internal Medicine; Visit Provider Internal Medicine | DX: E66.2 Morbid (severe) obesity with alveolar hypoventilation (principal); I48.91 Unspecified atrial fibrillation; I50.33 Acute on chronic diastolic (congestive) heart failure; E05.90 Thyrotoxicosis, unspecified without thyrotoxic crisis or storm; J44.1 Chronic obstructive pulmonary disease with (acute) exacerbation; Z99.81 Dependence on supplemental oxygen; Z99.89 Dependence on other enabling machines and devices; Z87.891 Personal history of nicotine dependence; Z68.42 Body mass index [BMI] 45.0-49.9, adult | CPT/HCPCS: 96127 ==

== ENCOUNTER 2025-09-23 08:19 | Outpatient (REF) | payer BC, SELFPAY ==
[2025-09-23 10:44] LABS: Hemoglobin A1C 145.9581 umol/L
[2025-09-23 10:49] LABS: Alanine Aminotransferase 18 U/L (0-40); Albumin Level 4.3 g/dL (3.5-5.0); Alkaline Phosphatase 66 U/L (39-117); Anion Gap 11 (12-20); Aspartate Amino Transferase 28 U/L (5-37); Blood Urea Nitrogen 15 mg/dL (9-16); Calcium 8.8 mg/dL (8.4-10.2); Carbon Dioxide 37 mmol/L (22-29); Chloride 100 mmol/L (96-108); Cholesterol 189 mg/dL (<200); Estimated Glomerular Filt Rate > 60; HDL Cholesterol 54 mg/dL (>40); Potassium 4.9 mmol/L (3.3-5.1); Sodium 143 mmol/L (135-145); Total Protein 6.8 g/dL (6.5-8.0); Triglycerides 141 mg/dL (<150)
[2025-09-23 11:03] LABS: Folate 12.2 ng/mL (> or = 4.0); Vitamin B12 1135 pg/mL (200-900)
== END 2025-09-23 08:20 | disposition home or self-care (01) ==
LOC: HO.HMGCLDS 08:19
PROVIDERS: PCP Internal Medicine; Visit Provider Internal Medicine
DX: Z13.1 Encounter for screening for diabetes mellitus (principal); I11.0 Hypertensive heart disease with heart failure; I50.33 Acute on chronic diastolic (congestive) heart failure; I48.91 Unspecified atrial fibrillation; E66.01 Morbid (severe) obesity due to excess calories
CPT/HCPCS: 36415; 80053; 80061; 82306; 82607; 82746; 83036; 84425; 84443

== ENCOUNTER 2025-10-25 13:45 | Outpatient (AMB) | payer BC, SELFPAY ==
--- NOTE | 2025-10-25 13:50 | A.OFFVIS_ITS ---
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 Drilling And Recovery Required: No Accompanied by: Self / Same As Patient Allergies No Known Allergies Allergy (Verified 09/22/25 10:16) Medication List - Last Reconciled 10/25/25 by Josesito Thorne MD acetaminophen 1,000 mg PO Q6H PRN apixaban (Eliquis) 5 mg PO BID cholecalciferol (vitamin D3) 25 mcg PO BEDTIME compr.stocking,knee,long,large As directed CPAP (CPAP Machine/Device) As directed diltiazem HCl ER 240 mg PO BEDTIME doxycycline hyclate 100 mg PO BID 10 days dronedarone (Multaq) 400 mg PO BID ensifentrine (Ohtuvayre) inhalation lasyrjxmdiy-qilcjjfss-dqnaerim 200-62.5-25 mcg (Trelegy Ellipta) 1 inh inhalation DAILY 90 days furosemide 40 mg PO BID ipratropium-albuterol 20-100 mcg/actuation (Combivent Respimat) 1 puff inhalation QID 30 days methimazole 2.5 mg (1/2 x 5 mg) PO BEDTIME metoprolol succinate ER 100 mg PO BEDTIME multivitamin 1 tab PO BEDTIME nebulizers As directed omeprazole magnesium 20 mg PO DAILY@0630 Oxygen Home Use As directed prednisone PO daily; Take 6 tabs daily x 3 days, then 5 tabs x 3 days, then 4 tabs x 3 days, then 3 tabs x 3 days, then 2 tabs daily x 3 days, then 1 tab x 3 days to complete. 18 days roflumilast 500 mcg PO BEDTIME thiamine HCl (vitamin B1) 500 mg PO BEDTIME vitamin E 268 mg PO BEDTIME Zepbound (tirzepatide (weight loss)) 5 mg (0.5 mL) subcut QWEEK NS Zepbound (tirzepatide (weight loss)) 2.5 mg (0.5 mL) subcut QWEEK NS HPI Comments Details: Mario returns for follow-up regarding atrial fibrillation/flutter. Previously lived in [facility]. Apparently around 10+ years ago he was playing golf at that time hurt his calf muscle. That led to DVT and in that setting also developed pulmonary embolism. Consequently, developed atrial flutter. Underwent cardioversion couple of times last at least 8 years ago. Then according to him, he underwent 2 ablations. Then 1 further episode of atrial fibrillation in 2019 in the setting of pneumonia. He was maintained on amiodarone for many years but we switched that to Multaq because of his age. For the most part, he is just about the same as before. Breathing is unchanged. He has got COPD as well as obstructive sleep apnea on supplemental oxygen. No clear-cut cardiac symptoms. No palpitations. [facility] Medical History Trigger finger of right hand Acute on chronic diastolic (congestive) heart failure Hypoventilation associated with obesity syndrome COPD exacerbation Hx of atrial flutter Obesity DEVIN (obstructive sleep apnea) COPD (chronic obstructive pulmonary disease) Acute exacerbation of chronic obstructive airways disease Hyperthyroidism Venous insufficiency of both lower extremities Chronic respiratory failure Hx pulmonary embolism Lung mass Surgical History Hx of colonoscopy History of esophagogastroduodenoscopy (EGD) H/O cardiac radiofrequency ablation Family History Father Bone cancer Mother COPD (chronic obstructive pulmonary disease) Social History Household Members: Spouse Household Members Other:: Housing: House Do you presently have visiting nurse or other home services: No Alcohol intake: current Alcohol intake frequency: holidays/special occasions only Patient Tobacco Use Status: Former Tobacco user Tobacco use type: Cigarette Cigarette Packs Per Day: 1.5 Cigarettes Per Day: 30.0 Years Smoked: 25 e-Cigarette/Vaping Use: Never Used Second Hand Smoke Exposure: No Advance Directives Date on File: 07/14/23 service: No Current occupational status: employed Cognitive needs: No Hearing needs: No Vision needs: Yes Review of Systems Const Denies chills, Denies fatigue, Denies fever(s), Denies frequent falls, Denies weakness, Denies weight gain and Denies weight loss ENT Denies dizziness Card Denies chest pain, Denies leg edema, Denies lightheadedness, Denies palpitations, Denies dyspnea and Denies dyspnea on exertion Resp Denies cough, Denies dyspnea and Denies dyspnea on exertion GI Denies hematochezia Musc Denies abnormal gait, Denies muscle weakness, Denies numbness, Denies radiating pain into limb and Denies tingling Neuro Denies abnormal gait, Denies dizziness, Denies frequent falls, Denies numbness, Denies tingling and Denies weakness Endo Denies fatigue and Denies palpitations Physical Exam Vital Signs: Last Vital Signs Pulse 66 10/25/25 13:52 BP 110/70 10/25/25 13:52 BMI result Body Mass Index 47.5 Const General: comfortable and no acute distress Orientation/consciousness: patient oriented x3 HEENT Other: Unremarkable Head: Yes normal to inspection Neck Neck: Yes normal visual inspection Chest Chest palpation & inspection: normal inspection of the chest Resp Auscultation: crackles Cardio Palpation: normal PMI Heart sounds: S1 normal heart sound present, S2 normal heart sound present, no gallops, no murmurs and no rubs GI Palpation (GI): Soft to palpation Back/Spine/Pelvis Other: unremarkable Skin General skin exam: no rashes or lesions noted Neuro General: patient oriented x3 Extrem General: Yes normal to inspection Psych Mental Status: mental status grossly normal Office Procedures EKG Details: EKG with sinus rhythm at 66/Min; PACs; no ischemic changes; [place]. [id number], Complete Assessment & Plan Assessment & Plan (1) PAF (paroxysmal atrial fibrillation): Code(s): I48.0 - Paroxysmal atrial fibrillation Category: Medical (2) Paroxysmal atrial flutter: Code(s): I48.92 - Unspecified atrial flutter Category: Medical (3) Primary hypertension: Code(s): I10 - Essential (primary) hypertension Category: Medical (4) Obesity: Code(s): E66.9 - Obesity, unspecified Category: Medical Qualifiers: Body mass index: BMI 45.0-49.9 Obesity classification: adult class 3 (BMI >= 40) Obesity type: unspecified obesity type Serious obesity comorbidity presence: with serious comorbidity Qualified Code(s): E66.01 - Morbid (severe) obesity due to excess calories; Z68.42 - Body mass index [BMI] 45.0-49.9, adult Plan Per prior records- 3 cardioversions in 2013 and 2014. Atrial flutter ablation 2014 and 2015. Report of failed flecainide therapy. In the most recent echocardiogram, low normal LVEF at 50-55%. Left atrium not well visualized. No significant valvular findings. No clear evidence of pulmonary hypertension. Last Holter with underlying sinus rhythm and an average rate of 67/Min; rare supraventricular and ventricular ectopy but otherwise unremarkable. Overall, many comorbidities including morbid obesity and COPD but reasonably stable from atrial arrhythmias standpoint. He has been on Multaq/diltiazem/metoprolol and stable in that combination. Also on Eliquis. With regard to his weight, is well aware of cardiac and medical implications. Recently, started on Tirzepatide for the same. Orders: Orders ECG 12 lead EKG 3 Months I48.0 - Paroxysmal atrial fibrillation Coding Level of Care Code Est Pt Level 4 (25778) Complex visit Add On G2211 Diagnoses PAF (paroxysmal atrial fibrillation) I48.0 Paroxysmal atrial flutter I48.92 Primary hypertension I10 Class 3 severe obesity with serious comorbidity and body mass index (BMI) of 45.0 to 49.9 in adult, unspecified obesity type E66.01; Z68.42 Body mass index: BMI 45.0-49.9 Obesity classification: adult class 3 (BMI >= 40) Obesity type: unspecified obesity type Serious obesity comorbidity presence: with serious comorbidity CPT Codes EKG - CPT: 01894-[id number], Complete ([id number])
[2025-10-25 13:52] VITALS: BP 110/70; PULSE 66; BMI 47.5
--- OUTSIDE RECORDS SUMMARY | 2025-10-25 17:36 | XMS_ITS | Encounter Summary ---
Author Organization [facility] Address [address] [place] [address] Phone Care Team Providers Care Coal Mill Operator Name Role Phone Rachel Hidalgo MD Primary Care Provider + Encounter Details Date Type Department Care Team (Late st Contact Info) Description 08/02/2021 Procedure Pass G[facility] MAIN PERIOP DEPT [address] [place] [address] Social History Tobacco Use Types Packs/Day Years [...] on filedocumented in this encounter Care Teams Coal Mill Operator Relationship Specialty Start Date End Date Rachel Hidalgo MD [email or web address] PCP - General Family Medicine 05/19/19 documented as of this encounter Additional Source Comments The information contained in this document represents components of the legal health record. It is not the complete legal health record.[facility]
--- OUTSIDE RECORDS SUMMARY | 2025-10-25 17:36 | XMS_ITS | Patient Health Record ---
[facility] Address [address] [place] [address] Care Team Providers Care Refining Still Operator Name Role Phone Alea Hull MD Primary Care Provider Unavaila Hector Pham Unavailable [phone] Allergies No Known Allergies Reason For Referral [...] 1 tablet Orally Once a day Active [place] 3 1000 MG 1 capsule Orally Onc [...] Insured Coverage Start Date Coverage End Date [facility] All Others [address] [place] [address] [phone] [id number] Lissy Bill Spouse - patient is [...] leg surgery 01/12/24 Hospitalization History Reason Date(Month/Year) [facility] [place]23 [facility] - fell 01/12/24
--- OUTSIDE RECORDS SUMMARY | 2025-10-25 17:36 | XMS_ITS | Clinical Summary ---
Author Organization [facility] Address [address] [address] Phone Care Team Providers Care Instructional Technologist Name Role Phone Rachel Hidalgo MD Primary Care Provider + Allergies Active Allergy Reactions Criticality Noted Date Comments Pollen Extracts 05/19/2019 Medications tiotropium (SPIRIVA HANDIHALER) 18 mcg inhalation capsule Inhale 18 mcg into the lungs daily. Active budesonide-for moterol (SYMBICORT) 80-4.5 mcg/actuation inhaler Inhale 2 puffs into the lungs 2 (two) times a day. Active albuterol (PROVENTIL HFA;VENTOLIN HFA) 90 mcg/actuation inhaler Inhale 2 puffs into the lungs every 6 (six) hours as needed for wheezing. Active hydrochlorothi azide (HYDRODIURIL) 25 MG tablet Take 25 mg by mouth daily. Active omeprazole (PRILOSEC) 20 MG capsule TAKE 1 CAPSULE TWICE A DAY, 30 MINUTES BEFORE BREAKFAST AND 30 MINUTES BEFORE DINNER 180 capsule 3 6 Active azelastine (ASTELIN) 137 mcg (0.1 %) nasal spray USE 1 TO 2 SPRAYS IN EACH NOSTRIL TWICE A DAY NEEDED 120 mL 4 7 Active apixaban (ELIQUIS) 5 mg tablet Take 5 mg by mouth 2 (two) times a day. Active metoprolol succinate (TOPROL-XL) 100 MG 24 hr tablet Take 100 mg by mouth daily. Active roflumilast (DALIRESP) 500 mcg Tab Take 500 mcg by mouth daily. Active DILTIAZEM HCL ORALIndication s:Unsure of dose. Take by mouth. Indications: Unsure of dose. Active b complex vitamins capsule Take 1 capsule by mouth daily. Active vitamin E 100 units capsule Take 100 Units by mouth daily. Active calcipotriene (CALCITRENE) 0.005 % ointment Apply topically 2 (two) times a day. Active CLOBETASOL PROPIONATE, BULK, MISC by Miscellaneous route. Active mupirocin (BACTROBAN) 2 % ointment Apply to the nasal cavity BID after drying it thoroughly for a total of 10 days 15 g 1 1 Active furosemide (LASIX) 40 MG tablet Take by mouth. Activ e amLODIPine (NORVASC) 5 MG tablet Take 5 mg by mouth daily. Active DM/acetaminoph en/doxylamine (VICKS NYQUIL COLD/FLU, DOXYL, ORAL) Take by mouth. Ac tive Active Problems Problem Noted Date Diagnosed Date Nasal lesion 05/19/2019 Skin lesion 01/25/2015 Overview (11/07/2015): Skin lesion Family History Medical History Relation Comments Bleeding Disorder Neg Hx Social History Tobacco Use Types Packs/Day Years Used Date Smoking Tobacco: Former Cigarettes 1 30 1 978 - 2007 Smokeless Tobacco: Never Alcohol Use Standard Drinks/Week Comments Yes 2 (1 standard drink = 0.6 oz pur e alcohol) Education Answer Date Recorded Are you interested in more education? Not on chris e 04/05/2023 Are you concerned about learning? Not on file 04/05/2023 No 04/05/2023 No 04/05/2023 Digital Access Answer Date Recorded No 04/27/2023 No 04/27/2023 No 04/27/2023 Reliable internet access at home? Not on file 04/27/2023 Device with a working camera? Not on file Sex and Gender Information Value Date Recorded Sex Assigned at Not on file Legal Sex Male 5:43 PM EST Gender Identity Not on file Sexual Orientation Not on file Last Filed Vital Signs Vital Sign Reading Time Taken Comments Blood Pressure 146/74 08/02/2021 12:17 PM EDT Pulse 62 08/02/2021 12:17 PM EDT Temperature 36.4 C (97.6 F) 08/02/2021 12:06 PM EDT Respiratory Rate 18 02/04/2022 9:27 AM EST Oxygen Saturation 95% 08/02/2021 12: 17 PM EDT pt using inc spirometer Inhaled Oxygen Concentration - - Weight 140.6 kg (310 lb) 02/04/2022 9:2 7 AM EST Height 180.3 cm (5' 11 ) 02/04/2022 9:2 7 AM EST Body Mass Index 43.24 02/04/2022 9:27 AM EST Plan of Treatment Health Maintenance Due Date Last Done Comments Adult Td,Tdap Booster 1961 CREATININE LEVEL 1961 LIPID PANEL 1961 POTASSIUM LEVEL 1961 DEPRESSION SCREENING 1973 SMOKING Hx and SMOKELESS TOBACCO SCREENING 1974 HEPATITIS C SCREENING 1979 HIV ONE-TIME SCREENING (18-6 5 YEARS) 1979 COLOGUARD 2006 COLONOSCOPY 2006 COLORECTAL CANCER SCREENING 2006 FIT TEST 2006 FOBT 2006 SIGMOIDOSCOPY 2006 VIRTUAL COLONOSCOPY 2006 PNEUMOCOCCAL VACCINES (50+ years) (1 of 1 - PCV) 2011 ZOSTER VACCINES (1 of 2) 2011 INFLUENZA VACCINE (#1) 2025 COVID-19 VACCINE (3 - 2024-2 6 season) 2025 10/01/2021, 01/26/2021 RSV VACCINE (1 - 1-dose 75+ series) 2036 HEPATITIS A VACCINES Aged Out No long er eligible based on patient's age to complete this topic HIB VACCINES Aged Out No longer eligi ble based on patient's age to complete this topic MENINGOCOCCAL VACCINES (ACWY) Aged Out No longer eligible based on patient's age to complete this topic MENINGOCOCCAL VACCINES (B) Aged Out N o longer eligible based on patient's age to complete this topic Medical Devices Not on file Insurance [facility] PPO EPO [place] [address] [place] [address] PPO EPO [facility] [place] [address] [place] [address] PPO EPO [facility] PPO EPO Member Subscriber Plan / Payer (Ef fective 2018-Present) Name:Mario Dolan Relation to Subscriber:Spouse Name:MARY ELLEN ASH Date of :1900 Address: [address] [place] [address] Payer ID:[id number] (NAIC) Type:PPO Address: [address] [place], [place] [place] [address] PPO EPO Advance Directives For more information, please contact: [phone] (9AM - 5PM [facility], Friday-Friday) Documents on File Type Date Recorded Patient Agency Owner Expl anation Healthcare Proxy 08/03/2021 1:52 PM Care Teams Instructional Technologist Relationship Specialty Start Date End Date Rachel Hidalgo MD [email or web address] PCP - General Family Medicine 05/19/19 Additional Source Comments The information contained in this document represents components of the legal health record. It is not the complete legal health record.[facility]
--- OUTSIDE RECORDS SUMMARY | 2025-10-25 17:36 | XMS_ITS | Data Portability ---
Author Organization [place] [facility], [facility] Address [address] [address] Care Team Providers Care Electric Crane Operator Name Role Phone NICOLLE BLACK Referring Provider [...] lesion on columella. Recommend follow-up with his cat scan technologist to discuss possible cryotherapy. Otherwise, patient can [...] Go To The Location Of Their Choice, [address] 4 08:20:27 Referral None recorded. 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 Procedures Surgical History Date Name Laterality Status Provider Name and Address Organization Details Recorded Time 4 Excision skin completed Lydia Mccord [facility] 08/27/2024 16:43:51 Imaging Results None recorded. [...] Not Available Not Available No t Available [place] 3 Fish Oil capsule 360 mg every day by oral route. active Not Available Not Available No t Available D-3-5 active Not Available Not Availa ble Not Available [employer] Des[employer] Hand active Not Available Not Available Not Available [...] [place] [facility] 04/22/2025 13:18:39 Date Recorded Body height Body mass index (BMI) Body weight Provider Name and Address Organization Details Last Updated DateTime 08/27/2024 180.34 cm 44.6 kg/m2 379855.56 g Karson Olvera [place] [facility] 08/27/2024 15:39:12 Social History None recorded. Functional Status None recorded. Mental Status None recorded. Family History Nothing Reported. Medical History No medical history recorded. Past Encounters Encounter ID Performer Location Encounter Start Date Encounter Closed Date Diagnosis/Indication Diagnosis SNOMED-CT Code Diagnosis ICD10 Code Diagnosis IMO Codes Diagnosis Note [id number] YA HOLDEN MD [facility] [address] [address] 08/27/2024 15:15:20 08/27/2024 16:33:28 Lesion of skin of nose 2313328701 2437628 J34.89 Verruca vulgaris 5566370 3 B07.8 [id number] LILIANA MACHUCA PA-C [facility] [address] [address] 04/22/2025 13:16:24 04/22/2025 13:43:32 Verruca vulgaris 15228658 B07.8 Long-term current use of anticoagulant 908726048 Z79.01 266261 Health Concerns Section Related Observation LastModified by Organization Detai ls LastModified Time None Recorded Concern Status LastModified by Organization Details LastModified Time None Recorded Advance Directives Directive None Recorded Payers Insurance Date Sequence Insurance Name Policy Number Policy Joyner Covered Member ID Joyner Member ID Guarantor Name 04/28/2025 1 [facility] (PPO) [id number] Lissy Garcia [id number] Mario Dolan Notes Date Note Type [...] self or family. YA LEE MD [address], [address], [facility] - [facility] 08/27/2024 16:55:32 04/22/2025 text/html ROS as [...] dermatology for other concern. YA LEE MD [address] [place] [address], [address], [facility] - [facility] 04/22/2025 16:54:14
== END 2025-10-25 14:10 | disposition home or self-care (01) ==
LOC: HO.HCS 13:46
PROVIDERS: PCP Internal Medicine; Visit Provider Internal Medicine
DX: I48.0 Paroxysmal atrial fibrillation (principal); I48.92 Unspecified atrial flutter; I10 Essential (primary) hypertension; E66.01 Morbid (severe) obesity due to excess calories; Z68.42 Body mass index [BMI] 45.0-49.9, adult
CPT/HCPCS: 93010; 99214

== ENCOUNTER → 2025-10-25 13:45 | Outpatient (BNVA) | payer BC, SELFPAY | PROVIDERS: PCP Internal Medicine; Visit Provider Internal Medicine | DX: I48.0 Paroxysmal atrial fibrillation (principal) | CPT/HCPCS: 93005 ==

== ENCOUNTER 2025-11-02 08:06 | Outpatient (AMB) | payer BC, SELFPAY ==
--- OUTSIDE RECORDS SUMMARY | 2025-11-02 08:10 | XMS_ITS | Encounter Summary ---
Author Organization [facility] Address [address] [place] [address] Phone Care Team Providers Care Pharmacy Intake Coordinator Name Role Phone Rachel Hidalgo MD Primary Care Provider + Encounter Details Date Type Department Care Team (Late st Contact Info) Description 08/02/2021 Procedure Pass GABY MAIN PERIOP DEPT [address] [place] [address] Social History Tobacco Use Types Packs/Day Years [...] on filedocumented in this encounter Care Teams Pharmacy Intake Coordinator Relationship Specialty Start Date End Date Rachel Hidalgo MD [email or web address] PCP - General Family Medicine 05/19/19 documented as of this encounter Additional Source Comments The information contained in this document represents components of the legal health record. It is not the complete legal health record.[facility]
--- OUTSIDE RECORDS SUMMARY | 2025-11-02 08:10 | XMS_ITS | Clinical Summary ---
Author Organization [facility] Address [address] [address] Phone Care Team Providers Care Needle Grinder Name Role Phone Rachel Hidalgo MD Primary [...] topic Medical Devices Not on file Insurance [facility] PPO EPO [place] [address] [address] [place] [address] PPO EPO [facility] [place] [address] PPO EPO [facility] PPO EPO Member Subscriber Plan / Payer (Ef fective 2018-Present) Name:Mario Dolan Relation to Subscriber:Spouse Name:MARY ELLEN ASH Date of :1900 Address: [address] [place] [address] Payer ID:[id number] (NAIC) Type:PPO Address: [address] [place], [place] [address] [address] PPO EPO Advance Directives For more information, please contact: [phone] (9AM - 5PM [facility], Friday-Friday) Documents on File Type Date Recorded Patient Technical Writer Expl anation Healthcare Proxy 08/03/2021 1:52 PM Care Teams Needle Grinder Relationship Specialty Start Date End Date Rachel Hidalgo MD [email or web address] PCP - General Family Medicine 05/19/19 Additional Source Comments The information contained in this document represents components of the legal health record. It is not the complete legal health record.[facility]
[2025-11-02 08:48] VITALS: BMI 47.4
--- NOTE | 2025-11-02 08:48 | MHC.OFFVIS ---
Vital Signs 11/02/25 08:48 Height 5 ft 11 in Weight 340 lb BMI 47.4 Intake Visit Reasons: [employer]- RT RF Trigger finger Intake Note: Mario 65 yr old rt hand domimant male who works at [employer], presents today for a new patient visit for his right ring finger. States his finger started to lock about 6 months ago. It locks randonly and doesnt occur often. Patient is interested in trigger injection. Allergies No Known Allergies Allergy (Verified 11/02/25 08:51) HPI HPI [employer]GER- RT RF Trigger finger: Details: Mario is a 65 year old right hand dominant man who presents with complaints of right ring finger locking. He complains of intermittent locking & catching of his right ring finger. He says his symptoms began ~6 months ago and now occurs randomly throughout the week. He denies any numbness or tingling. He denies any prior treatment options. [facility] Medical History Trigger finger of right hand Acute on chronic diastolic (congestive) heart failure Hypoventilation associated with obesity syndrome COPD exacerbation Hx of atrial flutter Obesity DEVIN (obstructive sleep apnea) COPD (chronic obstructive pulmonary disease) Acute exacerbation of chronic obstructive airways disease Hyperthyroidism Venous insufficiency of both lower extremities Chronic respiratory failure Hx pulmonary embolism Lung mass Surgical History Hx of colonoscopy History of esophagogastroduodenoscopy (EGD) H/O cardiac radiofrequency ablation Family History Father Bone cancer Mother COPD (chronic obstructive pulmonary disease) Social History (Updated 11/02/25 @ 08:53 by KAYLAN Collins) Household Members: Spouse Household Members Other:: Housing: House Do you presently have visiting nurse or other home services: No Alcohol intake: current Alcohol intake frequency: holidays/special occasions only Patient Tobacco Use Status: Former Tobacco user Tobacco use type: Cigarette Cigarette Packs Per Day: 1.5 Cigarettes Per Day: 30.0 Years Smoked: 25 e-Cigarette/Vaping Use: Never Used Second Hand Smoke Exposure: No Advance Directives Date on File: 07/14/23 service: No Current occupational status: employed 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 Cognitive needs: No Hearing needs: No Vision needs: Yes Review of Systems Const All systems reviewed & are unremarkable except as noted in HPI and below Physical Exam Vital Signs: BMI result Body Mass Index 47.4 Const General: cooperative, healthy appearing and no acute distress Orientation/consciousness: patient oriented x3 HEENT Head: Yes normocephalic and Yes atraumatic Eyes EOM: EOMs intact bilaterally Resp Effort & Inspection: normal respiratory effort and able to speak in complete sentences Cardio Jugular venous distension: no JVD Skin General skin exam: turgor normal Rashes: no rashes Neuro General: patient oriented x3 Extrem Other: Evaluation of Right Upper Extremity: The patient is alert, oriented, and in no acute distress Neuro: Median, Ulnar, Radial nerves motor and sensory intact and sensation is normal to the tips of all digits Vascular: Cap refill brisk ROM: He can make a fist and extend all his digits Visible & palpable catching of the ring finger Tender over the ring finger a1 pearl Skin: No lacerations or abrasions. General: No Ecchymosis. No Erythema or evidence of infection. Psych Appearance: grossly normal Affect: normal affect Attitude: cooperative Office Procedures AMB Fracture Care Details: No fracture, injection Fracture Billing Code: Fracture Billing Code Assessment & Plan Assessment & Plan (1) Trigger ring finger of right hand: Code(s): M65.341 - Trigger finger, right ring finger Category: Medical Plan Assessment & Plan: 1. Right ring finger trigger finger I educated him about this condition I discussed operative and non-operative treatment options The patient would like to proceed with an injection Injection #1: The risks and benefits of a steroid injection including but not limited to risk of damage to blood vessels, nerves, tendons, infection, skin bleaching, failure to improve symptoms, increased pain, and possible need for further injections or other intervention were discussed with the patient and the patient wishes to proceed with the steroid injection. Once consent was obtained, I sterilely prepped the area over the A1 pearl of the flexor tendon sheath of the Right ring finger. I then injected the flexor tendon sheath with a combination of 1 mL of dexamethasone (4mg/ml), and 1% lidocaine. The patient tolerated the procedure well with no complications. If the patient continues to have locking and catching 4-6 weeks following this injection, they may call to schedule appointment to discuss alternative treatment options Follow-up prn Scribed for Lucrecia Schulte MD by Chuy Echavarria, medical transcription radiology, on 11/02/25 at 9:00 AM, EST. Coding Level of Care Code New Pt Level 4 (85985) Diagnoses Trigger ring finger of right hand M65.341 CPT Codes Fracture Care - Fracture Billing Code: Fracture Billing Code ([id number])
== END 2025-11-02 09:22 | disposition home or self-care (01) ==
LOC: HO.HOS 08:07
PROVIDERS: PCP Internal Medicine; Visit Provider Orthopaedic Surgery
DX: M65.341 Trigger finger, right ring finger (principal)
CPT/HCPCS: 20550; 99203

== ENCOUNTER → 2025-11-02 08:06 | Outpatient (BNVA) | payer BC, SELFPAY | PROVIDERS: PCP Internal Medicine; Visit Provider Orthopaedic Surgery | DX: M65.341 Trigger finger, right ring finger (principal) | CPT/HCPCS: 20550; J1100; J2003 ==